=== PATIENT | male | born 1970 | race Caucasian/White ===

== ENCOUNTER 2023-09-07 11:36 | Emergency (ER) | payer MEDICAID, SELFPAY ==
[2023-09-07] VITALS (19 sets, daily range): BP systolic 164–221; BP diastolic 82–141; PULSE 70–87; RESP 13–23; TEMP 35.7–36.6; O2SAT 92–100
--- NOTE | 2023-09-07 11:47 | CT_ITS ---
STUDY: CT HEAD STROKE PROTOCOL W/O CONTRAST INJECTION REASON FOR EXAM: Male, 53 years old. Neuro deficit, acute, stroke suspected RADIATION DOSAGE (If Supplied By Facility): CTDIvol = ( 44.99 ) mGy, DLP = ( 829.85 ) mGycm TECHNIQUE: Transaxial CT imaging of the brain was performed without administration of intravenous contrast material. Individualized dose optimization techniques were used for this CT. COMPARISON: No relevant priors. FINDINGS: Focal soft tissue prominence in the scalp overlying the posterior right parietal bone. Normal calvarium. Normal size ventricles and extra-axial spaces for the patient''s age. Normal white matter tracts of the cerebral hemispheres. Normal basal ganglia and thalami. Normal brainstem. Normal cerebellum. There is no intracranial hemorrhage. There are no findings of an acute ischemic infarction. Normal visualized paranasal sinuses. ASPECT score: 10 CT/STROKE Brain/Head without Cont IMPRESSION: Normal unenhanced CT scan of the brain. Focal soft tissue prominence in the right scalp overlying the posterior right parietal bone. N.B. : The above Results were Read Back by Grant Owens MD to Don Milian MD, and understanding confirmed on 09/07/2023 12:05:33 (ET). Electronically Signed: Grant Owens MD at 12:06 EDT ,
--- NOTE | 2023-09-07 11:47 | CT_ITS ---
STUDY: CTA HEAD AND NECK WITH CONTRAST REASON FOR EXAM: Male, 53 years old. Neuro deficit, acute, stroke suspected -- Stuttering symptoms of numbness and loss of muscle RADIATION DOSAGE (If Supplied By Facility): CTDIvol = ( 35.95 ) mGy, DLP = ( 951.40 ) mGycm TECHNIQUE: CT angiography was performed with a multi-detector CT scanner. Data acquisition was obtained from the skull base through the vertex following intravenous administration of IV 100mL Isovue-370. MIP images were reconstructed from the axial data set. Post-processing of the angiographic images was performed, with multiplanar reformation and 3D reconstruction. Individualized dose optimization techniques were used for this CT. COMPARISON: No relevant priors. FINDINGS: Limited study due to the patient''s body habitus and poor peripheral venous access. Normal bilateral petrous carotid arteries. Normal right cavernous carotid artery with a normal supraclinoid bifurcation. Normal left cavernous carotid artery with a normal supraclinoid bifurcation. Normal right A1 segments of the anterior cerebral artery. Normal left A1 segments of the anterior cerebral artery. Normal intact anterior communicating artery (ACOM). Normal bilateral A2 segments of the anterior cerebral arteries. Normal right M1 and M2 segments of the middle cerebral arteries, with a normal M1 bifurcation. Normal left M1 and M2 segments of the middle cerebral arteries, with a normal M1 bifurcation. Normal right posterior communicating artery (PCOM). Normal left posterior communicating artery (PCOM). Normal bilateral vertebral arteries. Normal basilar artery with a normal basilar bifurcation. The visualized bilateral superior cerebellar (SCA) arteries are normal. Normal bilateral P1, P2 and visualized P3 segments of the posterior cerebral arteries. There is no demonstrated aneurysm of the mcgrath of [place]. AORTIC ARCH: Normal visualized aortic arch. Normal origins of the brachiocephalic, left common carotid, and left subclavian arteries. RIGHT CAROTID ARTERIES: Normal right common carotid artery (CCA). Normal right common carotid bulb. There is mild atherosclerotic plaque formation of the origin of the right internal carotid artery with less than 50% cross sectional diameter stenosis. Normal visualized cervical portion of the right internal carotid artery. Normal origin of the right external carotid artery (ECA). LEFT CAROTID ARTERIES: Normal left common carotid artery (CCA). Normal left common carotid bulb. There is mild atherosclerotic plaque formation of the origin of the left internal carotid artery with less than 50% cross sectional diameter stenosis. Normal visualized cervical portion of the left internal carotid artery. Normal origin of the left external carotid artery (ECA). VERTEBRAL ARTERIES: The vertebral arteries were not well visualized although there is a dominant right vertebral artery. CT/STROKE CTA Head AND Neck W/Con IMPRESSION: Minimal calcific plaque at the origin of the left and right internal carotid arteries. N.B. : The above Results were Read Back by Grant Owens MD to [facility] and understanding confirmed on 09/07/2023 12:22:43 (ET). Electronically Signed: Grant Owens MD at 12:23 EDT ,
--- NOTE | 2023-09-07 11:47 | EKG12_ITS ---
Test Reason : STROKE Blood Pressure : / mmHG Vent. Rate : 074 BPM Atrial Rate : 074 BPM P-R Int : 148 ms QRS Dur : 158 ms QT Int : 436 ms P-R-T Axes : 017 -55 038 degrees QTc Int : 483 ms Normal sinus rhythm Left axis deviation Non-specific intra-ventricular conduction block Minimal voltage criteria for LVH, may be normal variant ( Leroy product ) Abnormal ECG Confirmed by ARACELI CAO, EARL ([id number]), script editor WINDY THOMAS ([id number]) on 09/08/2023 9:27:50 AM Referred By: Confirmed By:EARL CHARLES MD
--- NOTE | 2023-09-07 11:51 | EDS_ITS ---
HPI History of Present Illness Chief Complaint: General Illness Detail of Chief Complaint: Patient's had intermittent episodes of left arm numbness and loss of functi Informant: patient and family Onset/Context/Timing Onset: Today, Yesterday and Days Context: Sudden Onset Timing: Intermittent (Duration 5 to 10 minutes) Quality and Location: Positive for Left Arm Parasthesia, Left Arm Weakness and - (Presently only symptom is numbness lips.); Negative for Right Facial Droop, Left Facial Droop, Right Face Paresthesia, Left Face Parasthesia, Slurred Speech, Expressive Aphasia, Receptive Aphasia or Difficulty with Ambulation Onset: 1106 today. Current Severity: Gone Maximum Severity: Moderate Worsened by: Nothing, patient has not been compliant with his blood pressure, cholestero Relieved by: Nothing Associated Symptoms Associated Symptoms: Negative for Headache, Nausea, Vomiting or Chest Pain Narrative Narrative: Patient is a 53-year-old male who has not seen a doctor in some time. He discontinued his medication for blood pressure, diabetes and high cholesterol. Patient had 2 episodes today where his left arm was numb and had loss of function. Patient presently has numbness of his lips. Patient denies headache, double vision blurred vision loss of vision. Patient [place] ringing ears decreased hearing. Patient denies problems with speech or swallowing. Patient denies cardiac or respiratory symptoms. Prior similar symptoms: No Recent Illness/Hospitalization: No [facility] Medical History Hypertension High cholesterol Diabetes Home Medications ?Medication ?Instructions ?Recorded ?Last Taken ?Type NK 09/07/23 Unknown History Allergy/AdvReac Type Severity Reaction Status Date / Time No Known Allergies Allergy Verified 09/07/23 11:39 Social History Smoking Status: Current every day smoker tobacco type: smokeless tobacco ROS ROS ED Constitutional Constitutional ED: Denies chills, fever(s) or subjective Eyes Eyes: Denies blurry vision or change in vision ENT ENT ED: Denies ear pain, rhinorrhea or sore throat Cardiovascular Cardiovascular: Denies chest pain, palpitations or racing heartbeat Respiratory/Chest Respiratory/Chest: Denies cough, dyspnea or dyspnea on exertion Gastrointestinal Gastrointestinal: Denies abdominal pain, nausea or vomiting Genitourinary Genitourinary ED: Denies dysuria, hematuria or urinary frequency Musculoskeletal Musculoskeletal: Denies arthralgias or myalgias Integumentary Denies rash Neurologic Neurologic: Denies headache(s), paresthesias or weakness Psychiatric Psychiatric: Denies anxiety Endocrine Endocrinology: Denies polydipsia, polyphagia or polyuria EXAM Physical Exam Const Vital Signs: 09/07/23 11:37 09/07/23 11:59 09/07/23 12:14 Temperature 96.3 F L Temperature Source Temporal Pulse Rate 75 Respiratory Rate 19 H Respiratory Effort Normal Non-Labored Respiratory Pattern Normal Blood Pressure 221/121 H Blood Pressure Mean 154 Pulse Ox 100 96 Oxygen Delivery Method Room Air Room Air 09/07/23 12:17 09/07/23 12:30 Temperature Temperature Source Pulse Rate 77 76 Respiratory Rate 19 H 13 Respiratory Effort Respiratory Pattern Blood Pressure 210/130 H 204/119 H Blood Pressure Mean 156 147 Pulse Ox 97 96 Oxygen Delivery Method Room Air Room Air Positive well nourished and well developed General Appearance ED: well developed and NAD HEENT Reports moist mucous membranes atraumatic Nose: other Other Details: There is a pustule left lower lip. Eyes PERRL and EOMs intact bilaterally Eyes Narrative: There is no nystagmus. There is no visual field cut. General Eye ED: Negative for pale conjunctiva or scleral icterus Neck no lymphadenopathy, supple and no JVD Chest Wall inspection of chest normal and palpation of chest normal Resp normal respiratory effort and clear to auscultation bilaterally Cardio no murmurs Rate: regular rate Rhythm: regular rhythm Heart Sounds: S1 normal GI normal to inspection, nondistended, normoactive bowel sounds, soft to palpation, non-tender, non-distended and no masses Back/Spine no CVA tenderness Extremity normal to inspection General Extremety ED: Yes edema General Extremity: edema Neuro oriented x3, CN's II-XII intact bilaterally and No no sensory deficits noted Neuro Narrative: Complains of numbness left leg. Apparently this is chronic. With patient having numbness in his lips Chvostek sign was assessed and negative. Jeremy Coma Scale: document GCS findings Spontaneous Obeys Commands Oriented 15 Sensorium / Orientation: alert Psych mental status grossly normal Skin no wounds Lesions: no lesions Rashes: no rashes NIHSS NIHSS Initial: 1a Level of Consciousness: 0 1b LOC Questions (Score 2 if aphasic/stupor): 0 1c LOC Commands (Only score 1st attempt): 0 2 Best Gaze (If aphasic, use reflexive mvmts.): 0 3 Visual: 0 4 Facial Palsy: 0 5 Motor Arm Right (UN = amputation/fusion): 0 5 Motor Arm Left: 0 6 Motor Leg Right: 0 6 Motor Leg Left: 0 7 Limb ataxia (Only + if out of proportion): 0 8 Sensory (Aphasia/stupor=0 or 1, coma=2): 1 9 Best Language: 0 10 Dysarthria (mute, coma=2, intubated=UN): 0 11 Extinction and Inattention (only scored if +): 0 Total Score: 1 MDM MDM MDM Narrative Medical decision making narrative: Concern patient is having stuttering TIA and may have a tight lesion. Stroke order set was initiated. Will obtain CT without contrast as well as CTA of the head and neck. Lab Data Attestation: I reviewed the patient's lab results. Lab results narrative: CBC is unremarkable. Labs: Laboratory Results - last 24 hr 09/07/23 12:00 WBC 7.1 RBC 5.91 Hgb 15.5 Hct 47.5 MCV 80.4 MCH 26.2 L MCHC 32.6 RDW Std Deviation 37.3 RDW Coeff of Masha 13.2 Plt Count 155 MPV 11.6 Immature Gran % (Auto) 0.400 Neut % (Auto) 62.9 Lymph % (Auto) 24.1 K[place]haw % (Auto) 7.2 Eos % (Auto) 4.6 Baso % (Auto) 0.8 Absolute Neuts (auto) 4.5 Absolute Lymphs (auto) 1.72 Nucleated RBC % 0 PT 12.5 INR 0.9 APTT 29.0 Radiography Chest X-Ray - ED: 1 View and Read by ED Physician (Borderline cardiomegaly. Limited story volume, atelectasis right lower lobe hilum is normal. Osseous structures are unremarkable. There is question of free air. I received a call from Dr. Mckinley that he is concerned patient may have free air as well. Will obtain CT of the abdomen determine if ) Diagnostic Testing: Clinical Impression(s) from Imaging Studies Brain CT 09/07/23 11:47 IMPRESSION: Normal unenhanced CT scan of the brain. Focal soft tissue prominence in the right scalp overlying the posterior right parietal bone. N.B. : The above Results were Read Back by Grant Owens MD to Don Milian MD, and understanding confirmed on 09/07/2023 12:05:33 (ET). Electronically Signed: Grant Owens MD at 12:06 EDT , ADDENDUM: 09/07/23 1213 IMPRESSION: Normal unenhanced CT scan of the brain. Focal soft tissue prominence in the right scalp overlying the posterior right parietal bone. N.B. : The above Results were Read Back by Grant Owens MD to Don Milian MD, and understanding confirmed on 09/07/2023 12:05:33 (ET). Electronically Signed: Grant Owens MD at 12:06 EDT , Head/Neck CTA 09/07/23 11:47 IMPRESSION: Minimal calcific plaque at the origin of the left and right internal carotid arteries. N.B. : The above Results were Read Back by Grant Owens MD to Don Milian and understanding confirmed on 09/07/2023 12:22:43 (ET). Electronically Signed: Grant Owens MD at 12:23 EDT , ADDENDUM: 09/07/23 1230 IMPRESSION: Minimal calcific plaque at the origin of the left and right internal carotid arteries. N.B. : The above Results were Read Back by Grant Owens MD to Don Milian and understanding confirmed on 09/07/2023 12:22:43 (ET). Electronically Signed: Grant Owens MD at 12:23 EDT , In light of soft tissue swelling of the occiput patient and family were asked if he had fallen. He fell approximately week ago striking the back of his head. This would explain his soft tissue swelling. EKG Initial EKG: Attestation: I personally reviewed and interpreted this EKG as follows: Interpretation: Sinus Rhythm (Rate is 74. There is artifact. Respiratory therapist attempted multiple times to get an EKG without artifact. [place] interval is 148 ms. Cures duration is prolonged at 958 ms and represents an ossific intraventricular conduction delay. QT is 3 to 436 ms. Atkinson is to left. There is evidence of LVH.) Management Discussion w/another healthcare provider: Hospitalist and Recessing Machine Operator (Neurologist recommended aspirin, for baby and stroke workup if symptoms recur to reconsult them) Treatment and Re-Evaluation Narrative: In light of the unremarkable CTA suspect his symptoms may be due to hyperte nsion. Will treat his hypertension with labetalol per the stroke order set. Patient and family were told there is concerned they may have free air on his x- ray. Will obtain CT to evaluate for free air. Patient presents complaining of no abdominal pain. Patient has a benign abdominal exam. Regardless there is concern for pneumoperitoneum and will obtain CT of the abdomen. Stroke Documentation Questions Stroke Team Activated: Yes Reviewed Inclusion/Exclusion criteria: Yes IV Thrombolytic Administered: No No contraindications from thrombolytic administration: No Discharge Plan Triage Chief Complaint: General Illness ED Provider: Chata Miliano Dx/Rx/DC Orders Clinical Impression: Hypertensive urgency, Arm paresthesia, left, Muscle weakness of left upper e xtremity, History of diabetes mellitus, Hx of hypercholesterolemia Prescriptions: No Action NK Primary Care Provider: NOT,DEFINED Referrals: NOT,DEFINED [Primary Care Provider] - Print Language: Lithuanian
--- NOTE | 2023-09-07 11:54 | ED.RN ---
NO OLD EKGS
[2023-09-07 12:24] LABS: Absolute Lymphocyte Count 1.72 X10^3/uL (0.83-4.51); Absolute Neutrophil Count 4.5 X10^3/uL (2.0-7.7); Basophil# 0.06 X10^3/uL; Basophil% 0.8 % (0-1); Eosinophil# 0.33 X10^3/uL; Eosinophils% 4.6 % (0-5); Hematocrit 47.5 % (40-54); Hemoglobin 15.5 g/dL (13.0-16.5); Lymphocyte # 1.72 X10^3/ul (0.83-4.51); Lymphocyte % 24.1 % (19-41); Mean Corp Hgb Conc 32.6 g/dL (32-36); Mean Corpuscular Hgb 26.2 pg (27.0-32.0); Mean Corpuscular Volume 80.4 fL (80-94); Mean Platelet Vol. 11.6 fl (6.2-12.0); Monocyte# 0.51 X10^3/uL; Monocyte% 7.2 % (0-10); NRBC Flagged by Analyzer 0 % (0-5); Neutrophil # 4.48 X10^3/uL (2.7-7.7); Neutrophil % 62.9 % (47-70); Platelet Count 155 K/mm3 (150-450); RBC Distribution Width CV 13.2 % (11.6-14.6); RBC Distribution Width SD 37.3 fl (35.1-43.9); Red Blood Count 5.91 M/mm3 (4.6-6.2); White Blood Count 7.1 K/mm3 (4.4-11.0)
--- NOTE | 2023-09-07 12:28 | RAD_ITS ---
STUDY: X-RAY CHEST REASON FOR EXAM: Male, 53 years old. Neuro deficit, acute, stroke suspected TECHNIQUE: Single AP portable view of the chest. COMPARISON: None. FINDINGS: EKG electrodes are seen. I suspect a small amount of free intraperitoneal air. The lungs are clear and expanded. There is no demonstrated pleural abnormality. There is mild cardiac enlargement. Normal mediastinum and shilpi. Normal visualized pulmonary arteries. Normal visualized aortic arch and descending thoracic aorta. There are diffuse degenerative changes of the visualized thoracic spine. Normal visualized ribs, clavicles, and shoulders. There is no demonstrated abnormality of the visualized soft tissue structures of the upper abdomen. RAD/Chest 1 View IMPRESSION: Questionable small amount of free intraperitoneal air. CT scan of the abdomen is recommended. N.B. : The above Results were Read Back by Grant Owens MD to Don Milian MD, and understanding confirmed on 09/07/2023 12:45:26 (ET). Electronically Signed: Grant Owens MD at 12:46 EDT ,
[2023-09-07 12:35] LABS: International Normalized Ratio 0.9; Prothrombin Time (Protime)PT. 12.5 SECONDS (11.7-14.9)
--- NOTE | 2023-09-07 12:45 | CT_ITS ---
STUDY: CT ABDOMEN AND PELVIS WITHOUT CONTRAST REASON FOR EXAM: Male, 53 years old. Concern for pneumoperitoneum RADIATION DOSAGE (If Supplied By Facility): CTDIvol = ( 24.04 ) mGy, DLP = ( 1411.35 ) mGycm TECHNIQUE: Transaxial images were obtained from the dome of the diaphragm to the symphysis pubis without oral contrast, and without intravenous contrast. Sagittal and coronal images were reconstructed. Individualized dose optimization techniques were used for this CT. COMPARISON: Comparison is made with prior study done earlier in the day. FINDINGS: Increased linear markings at the left lung base suggestive of underlying atelectasis. Coronary artery calcification. There is evidence of a small amount of free intraperitoneal air. Tiny air bubbles are seen within the falciform ligament. Normal liver. Small gallstones are seen along the dependent portion of the gallbladder lumen. Normal spleen. There is diffuse atrophy of the pancreas. Normal bilateral adrenal glands. Normal right kidney. Normal left kidney. Contrast is seen within both renal collecting systems due to the IV contrast administered. For CTA of the brain. There is heterogeneous appearance of the gastric wall. Questionable gastric ulcer. Normal small intestine. There are multiple colonic diverticula consistent with diverticulosis. The appendix is visualized and appears normal. Normal abdominal aorta. Normal inferior vena cava. Normal retroperitoneum. Normal urinary bladder. Normal abdominal wall. There are diffuse degenerative changes of the visualized lumbar spine. CT/Abdomen/Pelvis without Cont IMPRESSION: Abnormal appearance of the gastric wall. Questionable gastric ulcer. Sigmoid diverticulosis. Gallstones. Small amount of free intraperitoneal air. Findings suggestive of linear atelectasis at the left lung base. Electronically Signed: Grant Owens MD at 13:36 EDT ,
[2023-09-07] MEDS: Labetalol (Prefilled) 20 MG/4 ML IV ×2 (12:46→14:28)
[2023-09-07 13:02] LABS: Anion Gap 3 (5-15); BUN 9 mg/dL (7-18); BUN/Creat Ratio 12.5 RATIO (10-20); Calcium,Total 8.8 mg/dL (8.5-10.1); Chloride 105 mmol/L (98-107); Creatinine, Serum 0.72 mg/dL (0.70-1.30); EST Glomerular Filtration Rate 121 mL/min (>60); Est Glom Filt Rate - Afr Amer 146 mL/min (>60); Glucose 277 mg/dL (74-106); Sodium Level 138 mmol/L (136-145); Troponin-I HS 13 pg/mL (3.0-78.0)
--- NOTE | 2023-09-07 13:03 | PCM.HP.STD ---
HPI - General HPI Narrative MAXWELL SANDHU, is a 53 M who presents [facility] Medical History Hypertension High cholesterol Diabetes Home Medications ?Medication ?Instructions ?Recorded ?Last Taken ?Type NK 09/07/23 Unknown History Allergy/AdvReac Type Severity Reaction Status Date / Time No Known Allergies Allergy Verified 09/07/23 11:39 Social History Smoking Status: Current every day smoker tobacco type: smokeless tobacco Vital Signs Vital Signs Vital Signs: 09/07/23 11:37 09/07/23 11:59 09/07/23 12:14 Temperature 96.3 F L Temperature Source Temporal Pulse Rate 75 Respiratory Rate 19 H Respiratory Effort Normal Non-Labored Respiratory Pattern Normal Blood Pressure 221/121 H Blood Pressure Mean 154 Pulse Ox 100 96 Oxygen Delivery Method Room Air Room Air 09/07/23 12:17 09/07/23 12:30 Temperature Temperature Source Pulse Rate 77 76 Respiratory Rate 19 H 13 Respiratory Effort Respiratory Pattern Blood Pressure 210/130 H 204/119 H Blood Pressure Mean 156 147 Pulse Ox 97 96 Oxygen Delivery Method Room Air Room Air Results Lab / Micro Data 09/07/23 12:00 09/07/23 12:00 Labs: Laboratory Results - last 24 hr 09/07/23 12:00: WBC 7.1, RBC 5.91, Hgb 15.5, Hct 47.5, MCV 80.4, MCH 26.2 L, MCHC 32.6, RDW Std Deviation 37.3, RDW Coeff of Masha 13.2, Plt Count 155, MPV 11.6, Immature Gran % (Auto) 0.400, Neut % (Auto) 62.9, Lymph % (Auto) 24.1, [place] % (Auto) 7.2, Eos % (Auto) 4.6, Baso % (Auto) 0.8, Absolute Neuts (auto) 4.5, Absolute Lymphs (auto) 1.72, Nucleated RBC % 0, PT 12.5, INR 0.9, APTT 29.0, Sodium 138, Potassium 4.0, Chloride 105, Carbon Dioxide 30.0, Anion Gap 3 L, BUN 9, Creatinine 0.72, Est GFR (MDRD) Af Amer 146, Est GFR (MDRD) Non-Af 121, BUN/Creatinine Ratio 12.5, Glucose 277 H, Calcium 8.8, Troponin I High Sens 13 Imaging Radiology Impression Brain CT 09/07/23 11:47 IMPRESSION: Normal unenhanced CT scan of the brain. Focal soft tissue prominence in the right scalp overlying the posterior right parietal bone. N.B. : The above Results were Read Back by Grant Owens MD to Don Milian MD, and understanding confirmed on 09/07/2023 12:05:33 (ET). Electronically Signed: Grant Owens MD at 12:06 EDT , ADDENDUM: 09/07/23 1213 IMPRESSION: Normal unenhanced CT scan of the brain. Focal soft tissue prominence in the right scalp overlying the posterior right parietal bone. N.B. : The above Results were Read Back by Grant Owens MD to Don Milian MD, and understanding confirmed on 09/07/2023 12:05:33 (ET). Electronically Signed: Grant Owens MD at 12:06 EDT , Head/Neck CTA 09/07/23 11:47 IMPRESSION: Minimal calcific plaque at the origin of the left and right internal carotid arteries. N.B. : The above Results were Read Back by Grant Owens MD to Don Milian and understanding confirmed on 09/07/2023 12:22:43 (ET). Electronically Signed: Grant Owens MD at 12:23 EDT , ADDENDUM: 09/07/23 1230 IMPRESSION: Minimal calcific plaque at the origin of the left and right internal carotid arteries. N.B. : The above Results were Read Back by Grant Owens MD to Don Milian and understanding confirmed on 09/07/2023 12:22:43 (ET). Electronically Signed: Grant Owens MD at 12:23 EDT , Chest X-Ray 09/07/23 12:28 IMPRESSION: Questionable small amount of free intraperitoneal air. CT scan of the abdomen is recommended. N.B. : The above Results were Read Back by Grant Owens MD to Don Milian MD, and understanding confirmed on 09/07/2023 12:45:26 (ET). Electronically Signed: Grant Owens MD at 12:46 EDT , ADDENDUM: 09/07/23 1253
--- NOTE | 2023-09-07 13:25 | CHAPLAIN ---
Type of Pastoral Visit ___ Initial Visit ___ Follow-up Visit ___ On-call Visit ___ General Patient Visit ___ Spiritual Assessment ___ Family Conference ___ Bereavement _x__ Rapid Response ___ Code Blue ___ Other (describe below) Pastoral Care Referral From ___ Patient ___ Family ___ Nurse ___ Physician ___ Instructional Writer ___ Underground Electrician _x__ Other (describe below) Sacrament/Intervention ___ Active listening ___ Anointing ___ Yazidism ___ Bereavement ___ Communion ___ Miladis exploration ___ ___ Life review ___ Prayer ___ Reconciliation ___ Sacrament of Sick _x__ Supportive presence ___ Wedding ___ Other (describe below) Pastoral Comments met with family members in the room while patient was in CT; introduced self and role to family members; gave assurance that process to assist patient is quick and meaningful for his health and diagnosis; offer support and water; family members deny further needs
--- NOTE | 2023-09-07 13:44 | CT_ITS ---
STUDY: CT ABDOMEN WITH CONTRAST REASON FOR EXAM: Male, 53 years old. To evaluate source of pneumoperitoneum RADIATION DOSAGE (If Supplied By Facility): CTDIvol = ( 23.81 ) mGy, DLP = ( 1891.38 ) mGycm TECHNIQUE: Transaxial images were obtained post I.V. administration of Oral Gastrografin, and with oral contrast. Sagittal and coronal images were reconstructed. Individualized dose optimization techniques were used for this CT. COMPARISON: Comparison is made with prior study done earlier today. FINDINGS: Stable linear atelectasis at the left lung base. Coronary artery calcification. Once again, there is evidence of a free intraperitoneal air. This is unchanged. Normal liver. Multiple small gallstones. Normal spleen. Normal pancreas. Normal bilateral adrenal glands. Normal right kidney. Normal left kidney. There is mesenteric axial rotation of the stomach with the fundal portion of the stomach posteriorly in the body and distal portion of the stomach anteriorly. No gastric leak is seen. Normal small intestine. There are multiple colonic diverticula consistent with diverticulosis. The appendix is visualized and appears normal. 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 No gastric leakage is seen at this time. Electronically Signed: Grant Owens MD at 14:39 EDT ,
[2023-09-07] MEDS: Piperacil/Tazobactam 4.5 GM in 0.9% Normal Saline (100mL MB+) 100 ML IV (14:32)
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
--- NOTE | 2023-09-07 16:56 | ED.RN ---
CALLED [facility] TRANSFER--WAITING ORTHOPEDIC PODIATRIST BACK
--- NOTE | 2023-09-07 18:20 | EDS_ITS ---
HPI History of Present Illness Chief Complaint: General Illness Detail of Chief Complaint: This is a duplicate chart. [facility] Medical History Hypertension High cholesterol Diabetes Home Medications ?Medication ?Instructions ?Recorded ?Last Taken ?Type NK 09/07/23 Unknown History Allergy/AdvReac Type Severity Reaction Status Date / Time No Known Allergies Allergy Verified 09/07/23 11:39 Social History Smoking Status: Current every day smoker tobacco type: smokeless tobacco EXAM Physical Exam Const Vital Signs: 09/07/23 11:37 09/07/23 11:59 09/07/23 12:14 Temperature 96.3 F L Temperature Source Temporal Pulse Rate 75 Respiratory Rate 19 H Respiratory Effort Normal Non-Labored Respiratory Pattern Normal Blood Pressure 221/121 H Blood Pressure Mean 154 Pulse Ox 100 96 Oxygen Delivery Method Room Air Room Air 09/07/23 12:17 09/07/23 12:30 09/07/23 13:00 Temperature Temperature Source Pulse Rate 77 76 71 Respiratory Rate 19 H 13 21 H Respiratory Effort Respiratory Pattern Blood Pressure 210/130 H 204/119 H 196/98 H Blood Pressure Mean 156 147 130 Pulse Ox 97 96 94 Oxygen Delivery Method Room Air Room Air 09/07/23 13:19 09/07/23 13:30 09/07/23 14:31 Temperature 97.2 F L Temperature Source Oral Pulse Rate 75 70 73 Respiratory Rate 18 17 16 Respiratory Effort Respiratory Pattern Blood Pressure 193/141 H 198/100 H 187/110 H Blood Pressure Mean 158 132 135 Pulse Ox 97 98 96 Oxygen Delivery Method Room Air Room Air Room Air 09/07/23 14:59 09/07/23 15:18 09/07/23 16:06 Temperature Temperature Source Pulse Rate 70 71 71 Respiratory Rate 13 14 16 Respiratory Effort Respiratory Pattern Blood Pressure 201/85 H 168/110 H 164/89 H Blood Pressure Mean 123 129 114 Pulse Ox 94 95 95 Oxygen Delivery Method Room Air Room Air Room Air 09/07/23 18:00 Temperature Temperature Source Pulse Rate 71 Respiratory Rate 15 Respiratory Effort Respiratory Pattern Blood Pressure 201/113 H Blood Pressure Mean 142 Pulse Ox 94 Oxygen Delivery Method Room Air MDM MDM Lab Data Labs: Laboratory Results - last 24 hr 09/07/23 12:00 WBC 7.1 RBC 5.91 Hgb 15.5 Hct 47.5 MCV 80.4 MCH 26.2 L MCHC 32.6 RDW Std Deviation 37.3 RDW Coeff of Masha 13.2 Plt Count 155 MPV 11.6 Immature Gran % (Auto) 0.400 Neut % (Auto) 62.9 Lymph % (Auto) 24.1 [place] % (Auto) 7.2 Eos % (Auto) 4.6 Baso % (Auto) 0.8 Absolute Neuts (auto) 4.5 Absolute Lymphs (auto) 1.72 Nucleated RBC % 0 PT 12.5 INR 0.9 APTT 29.0 Sodium 138 Potassium 4.0 Chloride 105 Carbon Dioxide 30.0 Anion Gap 3 L BUN 9 Creatinine 0.72 Est GFR (MDRD) Af Amer 146 Est GFR (MDRD) Non-Af 121 BUN/Creatinine Ratio 12.5 Glucose 277 H Calcium 8.8 Troponin I High Sens 13 Radiography Diagnostic Testing: Clinical Impression(s) from Imaging Studies Brain CT 09/07/23 11:47 IMPRESSION: Normal unenhanced CT scan of the brain. Focal soft tissue prominence in the right scalp overlying the posterior right parietal bone. N.B. : The above Results were Read Back by Grant Owens MD to Don Milian MD, and understanding confirmed on 09/07/2023 12:05:33 (ET). Electronically Signed: Grant Owens MD at 12:06 EDT , ADDENDUM: 09/07/23 1213 IMPRESSION: Normal unenhanced CT scan of the brain. Focal soft tissue prominence in the right scalp overlying the posterior right parietal bone. N.B. : The above Results were Read Back by Grant Owens MD to Don Milian MD, and understanding confirmed on 09/07/2023 12:05:33 (ET). Electronically Signed: Grant Owens MD at 12:06 EDT , Head/Neck CTA 09/07/23 11:47 IMPRESSION: Minimal calcific plaque at the origin of the left and right internal carotid arteries. N.B. : The above Results were Read Back by Grant Owens MD to Don Milian and understanding confirmed on 09/07/2023 12:22:43 (ET). Electronically Signed: Grant Owens MD at 12:23 EDT , ADDENDUM: 09/07/23 1230 IMPRESSION: Minimal calcific plaque at the origin of the left and right internal carotid arteries. N.B. : The above Results were Read Back by Grant Owens MD to Don Milian and understanding confirmed on 09/07/2023 12:22:43 (ET). Electronically Signed: Grant Owens MD at 12:23 EDT , Chest X-Ray 09/07/23 12:28 IMPRESSION: Questionable small amount of free intraperitoneal air. CT scan of the abdomen is recommended. N.B. : The above Results were Read Back by Grant Owens MD to Don Milian MD, and understanding confirmed on 09/07/2023 12:45:26 (ET). Electronically Signed: Grant Owens MD at 12:46 EDT , ADDENDUM: 09/07/23 1253 IMPRESSION: Questionable small amount of free intraperitoneal air. CT scan of the abdomen is recommended. N.B. : The above Results were Read Back by Grant Owens MD to Don Milian MD, and understanding confirmed on 09/07/2023 12:45:26 (ET). Electronically Signed: Grant Owens MD at 12:46 EDT , Abdomen/Pelvis CT 09/07/23 12:45 IMPRESSION: Abnormal appearance of the gastric wall. Questionable gastric ulcer. Sigmoid diverticulosis. Gallstones. Small amount of free intraperitoneal air. Findings suggestive of linear atelectasis at the left lung base. Electronically Signed: Grant Owens MD at 13:36 EDT , Abdomen CT 09/07/23 13:44 IMPRESSION: Mesenteric axial rotation of the stomach as described. No gastric leakage is seen at this time. Electronically Signed: Grant Owens MD at 14:39 EDT , Discharge Plan Triage Chief Complaint: General Illness ED Provider: Don Milian Dx/Rx/DC Orders Clinical Impression: Hypertensive urgency, Arm paresthesia, left, Muscle weakness of left upper extremity, History of diabetes mellitus, Hx of hypercholesterolemia, Pneumoperitoneum of unknown etiology Prescriptions: No Action NK Primary Care Provider: Curtis Park Referrals: Curtis Park MD [Primary Care Provider] - NOT,DEFINED [Non-Staff] - Print Language: Cuban Disposition Disposition: Acute Care Hospital Discharge Location: [facility] Main [place] Discharge Date/Time: 09/07/23 21:50
[2023-09-07] MEDS: Nicardipine HCl-0.9% Sod Chlor 20 MG/200 ML IV.SOLN 50 MG IV (18:37)
== END 2023-09-07 21:50 | disposition short-term general hospital (02) ==
PROVIDERS: Emergency Provider Emergency Medicine; Visit Provider Emergency Medicine
DX: K66.8 Other specified disorders of peritoneum (principal); E11.9 Type 2 diabetes mellitus without complications; I16.0 Hypertensive urgency; E78.00 Pure hypercholesterolemia, unspecified; R53.1 Weakness; I10 Essential (primary) hypertension; R29.898 Other symptoms and signs involving the musculoskeletal system; F17.220 Nicotine dependence, chewing tobacco, uncomplicated; R20.2 Paresthesia of skin; K57.30 Diverticulosis of large intestine without perforation or abscess without bleeding
CPT/HCPCS: 70450; 70496; 70498; 71045; 74150; 74176; 80048; 84484; 85025; 85610; 85730; 93005; 96365; 96366; 96367; 96375; 96376; 99285; J7050; Q9967; A4216

== ENCOUNTER 2023-11-01 09:36 | Emergency (ER) | payer MEDICAID, SELFPAY ==
[2023-11-01 09:38] VITALS: BP 162/78; PULSE 75; RESP 18; TEMP 35.9; O2SAT 97
[2023-11-01 09:51] VITALS: BP 162/78; PULSE 75; RESP 18; TEMP 35.9; O2SAT 97; BMI 50.3
--- NOTE | 2023-11-01 10:22 | RAD_ITS ---
STUDY: X-RAY - RIGHT FOOT CLINICAL: Male, 53 years old. Wound on dorsal aspect TECHNIQUE: 3 view(s) of the foot. COMPARISON: None. FINDINGS: There is a plantar calcaneal spur. Normal visualized subtalar, talonavicular, calcaneocuboid, tarsal and tarsometatarsal articulations. There is a talar neck beak. This is a normal variant. Normal metatarsi. There is degenerative arthrosis of the metatarsophalangeal joint of the hallux . Normal tibial and fibular sesamoid bones. Normal interphalangeal joint of the great toe. Normal phalanges of the great toe. Normal second through fifth metatarsophalangeal joints. Normal interphalangeal joints and phalanges of the lesser toes. Dorsal soft tissue swelling. RAD/Foot min 3 Views IMPRESSION: Degenerative changes at the first metatarsophalangeal joint. Plantar spur. Dorsal soft tissue swelling. Electronically Signed: Grant Owens MD at 10:46 EDT ,
[2023-11-01 10:26] LABS: Absolute Neutrophil Count 5.6 X10^3/uL (2.0-7.7); Basophil# 0.06 X10^3/uL; Basophil% 0.7 % (0-1); Eosinophil# 0.28 X10^3/uL; Eosinophils% 3.4 % (0-5); Hematocrit 44.5 % (40-54); Hemoglobin 14.5 g/dL (13.0-16.5); Lymphocyte % 19.7 % (19-41); Mean Corp Hgb Conc 32.6 g/dL (32-36); Mean Corpuscular Hgb 26.5 pg (27.0-32.0); Mean Corpuscular Volume 81.4 fL (80-94); Mean Platelet Vol. 10.8 fl (6.2-12.0); Monocyte# 0.63 X10^3/uL; Monocyte% 7.7 % (0-10); NRBC Flagged by Analyzer 0 % (0-5); Neutrophil # 5.56 X10^3/uL (2.7-7.7); Neutrophil % 68.4 % (47-70); Platelet Count 143 K/mm3 (150-450); RBC Distribution Width CV 13.5 % (11.6-14.6); RBC Distribution Width SD 39.8 fl (35.1-43.9); Red Blood Count 5.47 M/mm3 (4.6-6.2); White Blood Count 8.1 K/mm3 (4.4-11.0)
[2023-11-01] MEDS: 0.9% Normal Saline (1000mL) 1,000 ML 999 ML IV (10:26)
[2023-11-01 10:38] LABS: Anion Gap 5 (5-15); BUN 11 mg/dL (7-18); BUN/Creat Ratio 16.8 RATIO (10-20); Calcium,Total 9.1 mg/dL (8.5-10.1); Chloride 105 mmol/L (98-107); Creatinine, Serum 0.66 mg/dL (0.70-1.30); EST Glomerular Filtration Rate 135 mL/min (>60); Est Glom Filt Rate - Afr Amer 163 mL/min (>60); Estimated Creatinine Clearance 191.03 ml/min; Glucose 299 mg/dL (74-106); Potassium 3.9 mmol/L (3.5-5.1); Sodium Level 139 mmol/L (136-145)
--- NOTE | 2023-11-01 10:39 | EX.ED.DYSGE1 ---
HPI History of Present Illness Chief Complaint: Wound Check Narrative Narrative: Patient is a 53-year-old male past medical history of diabetes, hypercholesteremia, hypertension, tobacco use who presents to the emergency department with a wound check on his right foot. He states that he dropped a hot potato on his right foot and he states that he has been on antibiotics since Monday states that has been taking doxycycline. He states that he does believe that the area is improving however he noted that he try to get into his primary care physician today for a wound evaluation and states they could not get him in till the end of the week which she came here then for further evaluation management. Patient states that he was originally placing peroxide on the wound however he discontinued this after he was told to stop this by the provider that saw him placed him on doxycycline. Patient denies any fevers [facility] Medical History Hypertension High cholesterol Diabetes Home Medications ?Medication ?Instructions ?Recorded ?Last Taken ?Type doxycycline hyclate 100 mg capsule 100 mg PO BID 11/01/23 Unknown History insulin glargine 100 unit/mL (3 unit subcut 11/01/23 Unknown History mL) subcutaneous pen (Lantus Solostar U-100 Insulin) levetiracetam 500 mg tablet 500 mg PO BID 11/01/23 Unknown History losartan 50 mg tablet 50 mg PO DAILY 11/01/23 Unknown History Allergy/AdvReac Type Severity Reaction Status Date / Time No Known Allergies Allergy Verified 11/01/23 09:38 Social History Smoking Status: Current every day smoker tobacco type: smokeless tobacco ROS ROS ED ROS Narrative Constitutional: Denies fevers, chills, headaches Cardiovascular: Denies chest pain Neurological: Denies numbness, does come tingling Musculoskeletal: Complains of right foot wound as noted above Skin: See above EXAM Physical Exam Narrative Exam Narrative: General: Patient lying in bed rest comfortably did not appear to be in acute distress Head: Atraumatic, normocephalic Eyes: PERRL bilateral, EOMI bilateral, no conjunctival injection noted Neck: Soft, supple, trach midline Cardiovascular: Regular rate and rhythm no murmurs gallops rubs noted Respiratory: Clear to auscultation bilaterally no rales rhonchi or wheezes noted Abdomen: Soft, nondistended, no tenderness palpation Extremities: DP pulses +2/4 in the bilateral lower extremities, +5/5 strength noted in the bilateral upper and lower extremities Neurological: Patient following commands knew that he was at [facility] years 2023. Sensation grossly intact in the bilateral lower extremities Skin: Patient has a 3 x 3 cm wound to the dorsal aspect of his right foot with some surrounding erythema noted no fluctuance noted. Did review images that the patient took and this does appear to be improving with antibiotics. Const Vital Signs: 11/01/23 09:38 11/01/23 09:51 Temperature 96.7 F L 96.7 F L Temperature Source Temporal Temporal Pulse Rate 75 75 Respiratory Rate 18 18 Blood Pressure 162/78 H 162/78 H Blood Pressure Mean 106 106 Pulse Ox 97 97 Oxygen Delivery Method Room Air Room Air MDM MDM MDM Narrative Medical decision making narrative: Patient is a 53-year-old male who presented to the emergency department with a wound evaluation. Patient will have workup performed here on the differential diagnose includes but not limited to cellulitis, osteomyelitis. Once workup is obtained reviewed he will be reevaluated. Patient be given IV fluids. Once again I reviewed the images that he had on his phone and this clinically is improving on his oral antibiotics. Patient CBC reviewed was largely unremarkable no evidence leukocytosis white blood count normal at 8.1, hemoglobin stable 14.5, platelet count was 143, sodium normal at 139, potassium normal at 3.9, creatinine was 0.66. Patient's lactic acid normal at 1.6. Patient's x-ray of his foot reviewed and showed degenerative changes at the first metatarsal joint plantar spur with dorsal soft tissue swelling. Patient was given a gram of Rocephin here in the emergency department. Patient will have his wound outlined in marker and was advised to continue his oral antibiotics that he is on and return with worsening redness outside this line. He states that he has a appointment scheduled with his primary care physician which she was advised to follow-up with them on as well. Patient would like to go home at this point time all question concerns answered he was discharged home in stable condition. Lab Data Labs: Laboratory Results - last 24 hr 11/01/23 10:20 WBC 8.1 RBC 5.47 Hgb 14.5 Hct 44.5 MCV 81.4 MCH 26.5 L MCHC 32.6 RDW Std Deviation 39.8 RDW Coeff of Masha 13.5 Plt Count 143 L MPV 10.8 Immature Gran % (Auto) 0.100 Neut % (Auto) 68.4 Lymph % (Auto) 19.7 [place] % (Auto) 7.7 Eos % (Auto) 3.4 Baso % (Auto) 0.7 Absolute Neuts (auto) 5.6 Absolute Lymphs (auto) 1.60 Nucleated RBC % 0 Sodium 139 Potassium 3.9 Chloride 105 Carbon Dioxide 29.0 Anion Gap 5 BUN 11 Creatinine 0.66 L Estim Creat Clear Calc 191.03 Est GFR (MDRD) Af Amer 163 Est GFR (MDRD) Non-Af 135 BUN/Creatinine Ratio 16.8 Glucose 299 H Lactic Acid 1.6 Calcium 9.1 Radiography Diagnostic Testing: Clinical Impression(s) from Imaging Studies Foot X-Ray 11/01/23 10:22 IMPRESSION: Degenerative changes at the first metatarsophalangeal joint. Plantar spur. Dorsal soft tissue swelling. Electronically Signed: Grant Owens MD at 10:46 EDT , Discharge Plan Triage Chief Complaint: Wound Check ED Provider: Mauri Huggins Dx/Rx/DC Orders Clinical Impression: Cellulitis of foot Prescriptions: No Action losartan 50 mg tablet 50 mg PO DAILY doxycycline hyclate 100 mg capsule 100 mg PO BID levetiracetam 500 mg tablet 500 mg PO BID insulin glargine [Lantus Solostar U-100 Insulin] 100 unit/mL (3 mL) insulin pen subcut Primary Care Provider: Curtis Park Referrals: Curtis Park MD [Primary Care Provider] - Activity Restrictions/Additional Instructions: Take antibiotics as prescribed. Return for worsening redness/purulent drainage out of the wound and outside the line marked as discussed here. Follow-up your primary care physician. Return with any other concerns. Print Language: Mauritian Disposition Disposition: Home, Self Care
[2023-11-01 10:52] LABS: Lactic Acid 1.6 mmol/L (0.4-1.9)
[2023-11-01] MEDS: Ceftriaxone 1 GM/50 ML BAG IV (11:03)
[2023-11-01 11:59] VITALS: BP 142/72; PULSE 76; RESP 18; TEMP 36.9; O2SAT 94
== END 2023-11-01 12:00 | disposition home or self-care (01) ==
PROVIDERS: Emergency Provider Emergency Medicine; Visit Provider Emergency Medicine
DX: L03.115 Cellulitis of right lower limb (principal); E11.9 Type 2 diabetes mellitus without complications; Z79.4 Long term (current) use of insulin; M19.071 Primary osteoarthritis, right ankle and foot; I10 Essential (primary) hypertension; E78.00 Pure hypercholesterolemia, unspecified; F17.220 Nicotine dependence, chewing tobacco, uncomplicated; Z79.899 Other long term (current) drug therapy
CPT/HCPCS: 73630; 80048; 83605; 85025; 96361; 96365; 99283; J7030; A4216

== ENCOUNTER 2024-06-02 23:07 | Inpatient (IN) | payer MEDICAID, SELFPAY ==
[2024-06-02 23:08] VITALS: BP 136/92; PULSE 135; RESP 20; TEMP 36.1; O2SAT 98
[2024-06-02 23:10] VITALS: BP 170/101; PULSE 135; RESP 18; TEMP 36.6; O2SAT 98
--- NOTE | 2024-06-02 23:30 | EKG12_ITS ---
Test Reason : Blood Pressure : */* mmHG Vent. Rate : 135 BPM Atrial Rate : 136 BPM P-R Int : 128 ms QRS Dur : 98 ms QT Int : 360 ms P-R-T Axes : * -64 -3 degrees QTcB Int : 540 ms Sinus tachycardia Pulmonary disease pattern Left anterior fascicular block Minimal voltage criteria for LVH, may be normal variant ( [place] product ) ST & T wave abnormality, consider inferior ischemia Abnormal ECG Confirmed by PAIGE CAO, HAMMAD ([id number]), video editor WINDY THOMAS ([id number]) on 06/05/2024 11:57:12 AM Referred By: Confirmed By: HAMMAD GIBSON MD
--- NOTE | 2024-06-02 23:31 | EX.ED.DYSGE1 ---
HPI History of Present Illness Chief Complaint: Palpitations Narrative Narrative: 54-year-old male past medical history of diabetes, previous stroke on baby aspirin, seizure disorder on Keppra, hypertension, presents with tachycardia that has had for the last 3 to 4 days. He relates history that about 4 to 5 days ago he was having ear pain. He went to urgent care and was put on antibiotics and prednisone. A few days later, he took his blood pressure and he noticed that at that time he had a heart rate in the 130s. He is asymptomatic with this and does not have chest pain or shortness of breath, he does not feel palpitations. The other day, he took his blood pressure and it was low, and his heart rate came down to 108 bpm, but he states he took an hour later and it has remained in the 130s for the last few days. He denies any exacerbating or alleviating factors. No shortness of breath. No leg swelling. [facility] Medical History Hypertension High cholesterol Diabetes Home Medications ?Medication ?Instructions ?Recorded ?Last Taken ?Type doxycycline hyclate 100 mg capsule 100 mg PO BID 11/01/23 Unknown History insulin glargine 100 unit/mL (3 unit subcut 11/01/23 Unknown History mL) subcutaneous pen (Lantus Solostar U-100 Insulin) levetiracetam 500 mg tablet 500 mg PO BID 11/01/23 Unknown History losartan 50 mg tablet 50 mg PO DAILY 11/01/23 Unknown History amoxicillin 875 mg tablet 875 mg PO BID 06/03/24 Unknown History aspirin 81 mg chewable tablet 1 tab PO DAILY 06/03/24 Unknown History atorvastatin 40 mg tablet 40 mg PO DAILY 06/03/24 Unknown History insulin lispro 100 unit/mL 10 unit subcut TID 06/03/24 Unknown History subcutaneous pen nifedipine 30 mg tablet,extended 30 mg PO DAILY 06/03/24 Unknown History release Allergy/AdvReac Type Severity Reaction Status Date / Time No Known Allergies Allergy Verified 06/02/24 23:07 Social History household members: spouse and family housing: house Smoking Status: Current every day smoker tobacco type: cigarettes ROS ROS ED ROS Narrative Constitutional: No fever, no chills. HEENT: No sore throat. No neck pain. No rhinorrhea. Positive for ear pain for which she went to urgent care and received prednisone and an antibiotic. Cardiovascular: No chest pain. No palpitations. No pedal edema. Respiratory: No cough, no shortness of breath. Abdominal: No abdominal pain. No nausea. No vomiting. Genitourinary: No dysuria. No hematuria. Musculoskeletal: No myalgias. No arthralgias. Neurologic: No headaches. No dizziness. No lightheadedness. EXAM Physical Exam Narrative Exam Narrative: Afebrile. Vital signs noted. Nontoxic-appearing. Cardiovascular examination reveals a regular tachycardia at 135 bpm. Lungs are clear to auscultation bilaterally. Abdomen soft, nontender, without guarding or rebound. Positive bowel sounds. Neurological examination nonfocal, nonlateralizing. No noted pedal edema. Const Vital Signs: 06/02/24 23:08 06/02/24 23:10 06/03/24 00:07 Temperature 97 F L 98 F Temperature Source Temporal Oral Pulse Rate 135 H 135 H 130 H Respiratory Rate 20 H 18 25 H Blood Pressure 136/92 H 170/101 H 140/112 H Blood Pressure Mean 106 124 121 Pulse Ox 98 98 96 Oxygen Delivery Method Room Air Room Air Room Air 06/03/24 01:00 Temperature Temperature Source Pulse Rate 115 H Respiratory Rate 25 H Blood Pressure 116/103 H Blood Pressure Mean 107 Pulse Ox 96 Oxygen Delivery Method Room Air MDM MDM MDM Narrative Medical decision making narrative: Differential diagnosis includes but not limited to sinus tachycardia versus atrial fibrillation versus dehydration versus other electrolyte abnormality. I have lower suspicion for pulmonary embolism as he is not having chest pain or shortness of breath although he was mildly tachypneic originally in triage. Pulse ox is 98% on room air without evidence of hypoxia. Comprehensive workup was pursued. EKG obtained and interpreted by myself independently as a sinus tachycardia at [address] changes. No STEMI. I reviewed his laboratory work and he has normal white count of 10.0, hemoglobin slightly hemoconcentrated at 16.6 with hematocrit 51.2, platelet count 212. Electrolyte panel shows chloride slightly low at 97 which I think is nonspecific, glucose elevated 318 but he has a normal anion gap of 12 so I doubt diabetic ketoacidosis. BUN of 22. LFTs are grossly unremarkable. High-sensitivity troponin initially is elevated at 56. Patient is symptom-free and is not having chest pain however. I received a call from the radiologist regarding the CTA of the chest, with concern for pulmonary embolism. In discussion with the radiologist, it appears he has bilateral pulmonary emboli, 1 in the right upper lobe and 1 in the left lower lobe there can be a developing left lower lobe infarct according to the radiologist as well. At this point in time, he will be started on heparin. I do feel that he requires admission given his elevated troponin, and pulmonary infarct that is probably developing. Patient discussed with the hospitalist for admission. Disposition is admitted to the PCU in stable condition. History & Record Review Discussion w/independent historian: Patient and Family Lab Data Attestation: I reviewed the patient's lab results. Labs: Laboratory Results - last 24 hr 06/02/24 23:30 WBC 10.0 RBC 6.30 H Hgb 16.6 H Hct 51.2 MCV 81.3 MCH 26.3 L MCHC 32.4 RDW Std Deviation 39.6 RDW Coeff of Masha 13.6 Plt Count 212 MPV 11.9 Immature Gran % (Auto) 1.300 H Neut % (Auto) 65.1 Lymph % (Auto) 24.7 [place] % (Auto) 7.5 Eos % (Auto) 0.7 Baso % (Auto) 0.7 Absolute Neuts (auto) 6.5 Absolute Lymphs (auto) 2.46 Nucleated RBC % 0 Sodium 133 Potassium 4.5 Chloride 97 L Carbon Dioxide 24.1 Anion Gap 12 BUN 22 H Creatinine 0.82 Est GFR (MDRD) Non-Af 105 BUN/Creatinine Ratio 26.7 H Glucose 318 H Calcium 8.9 Total Bilirubin 0.59 AST 22 ALT 21 Alkaline Phosphatase 78 Troponin T High Sens 56 H* Total Protein 7.0 Albumin 3.4 L Globulin 3.6 Albumin/Globulin Ratio 1.0 Radiography Diagnostic Testing: Clinical Impression(s) from Imaging Studies Chest CTA 06/03/24 23:29 IMPRESSION: Findings are concerning for areas of pulmonary embolism at the right upper and left lower lobes as described above. Possible associated developing infarct at the left lower lobe as above. Findings discussed by myself by phone with Dr. Schneider at 1:07 a.m. 06/03/2024 Reading Location: [facility] Management Discussion w/another healthcare provider: Hospitalist (Dr. Bill) Discharge Plan Dx/Rx/DC Orders Clinical Impression: Bilateral pulmonary embolism, Pulmonary embolism with infarction, Elevated troponin, Tachycardia Disposition Disposition: Acute Care Hospital [facility]
[2024-06-02] MEDS: 0.9% Normal Saline (1000mL) 1,000 ML 1000 ML IV (23:40)
[2024-06-03] VITALS (16 sets, daily range): BP systolic 110–168; BP diastolic 73–131; PULSE 86–146; RESP 12–25; TEMP 36.6–37; O2SAT 94–98; BMI 52.9; BMI 52.0; BMI 51.8
[2024-06-03 00:10] LABS: Absolute Lymphocyte Count 2.46 X10^3/uL (0.83-4.51); Absolute Neutrophil Count 6.5 X10^3/uL (2.0-7.7); Basophil# 0.07 X10^3/uL; Basophil% 0.7 % (0-1); Eosinophil# 0.07 X10^3/uL; Eosinophils% 0.7 % (0-5); Hematocrit 51.2 % (40-54); Hemoglobin 16.6 g/dL (13.0-16.5); Lymphocyte # 2.46 X10^3/ul (0.83-4.51); Lymphocyte % 24.7 % (19-41); Mean Corp Hgb Conc 32.4 g/dL (32-36); Mean Corpuscular Hgb 26.3 pg (27.0-32.0); Mean Corpuscular Volume 81.3 fL (80-94); Mean Platelet Vol. 11.9 fl (6.2-12.0); Monocyte# 0.75 X10^3/uL; Monocyte% 7.5 % (0-10); NRBC Flagged by Analyzer 0 % (0-5); Neutrophil # 6.48 X10^3/uL (2.7-7.7); Neutrophil % 65.1 % (47-70); Platelet Count 212 K/mm3 (150-450); RBC Distribution Width CV 13.6 % (11.6-14.6); RBC Distribution Width SD 39.6 fl (35.1-43.9)
[2024-06-03 00:20] LABS: AST(SGOT) 22 U/L (<=37); Alanine Aminotransfer ALT/SGPT 21 U/L (<=46); Albumin, Serum 3.4 g/dL (3.5-5.0); Alkaline Phosphatase 78 U/L (40-129); Anion Gap 12 (5-15); BUN 22 mg/dL (4-19); BUN/Creat Ratio 26.7 RATIO (10-20); Calcium,Total 8.9 mg/dL (7.6-11.0); Carbon Dioxide 24.1 mmol/L (21.0-32.0); Chloride 97 mmol/L (98-108); Creatinine, Serum 0.82 mg/dL (0.70-1.20); EST Glomerular Filtration Rate 105 (>60); Globulin 3.6 g/dL (2.2-4.2); Glucose 318 mg/dL (70-99); Potassium 4.5 mmol/L (3.3-5.1); Sodium Level 133 mmol/L (133-145); Total Bilirubin 0.59 mg/dL (0.00-1.30)
[2024-06-03 00:24] LABS: Troponin T High Sensitivity 56 ng/L (<=22)
--- NOTE | 2024-06-03 01:34 | PCM.HP.STD ---
[facility] - General General Date of Admission: 06/03/24 Date of Service: 06/03/24 Chief Complaint: Persistent Tachycardia. [facility] Narrative MAXWELL SANDHU, is a 54 M with a past medical history of essential hypertension; on losartan and nifedipine, hyperlipidemia; on atorvastatin, super-morbid obesity; with BMI of 53 this admission, BROOKE; noncompliant with CPAP for the past ~2 years, DM-2; of unknown control; on insulin glargine and insulin lispro TID, history of CVA; on BASA daily, history of seizures; on levetiracetam, OA, unintentional 50 pound weight gain over the past ~6 months and recent diagnosis of ear infection at Urgent Care; treated with oral amoxicillin and prednisone who presents to [facility] ER complaining of persistent tachycardia. Mr. Sadnhu reports his symptoms began ~4-5 days ago when he began having ear pain for which he went to Urgent Care. Then about ~3-4 days ago he took his blood pressure and noted his heart rate was in the ~130 bpm range which has only episodically decreased to ~108 bpm but is was basically remaining high in the ~130 bpm range so he decided to come in for further evaluation and treatment. He denies associated palpitations, chest pain or SOB. He states his mobility is relatively poor as he mainly goes from the bed to wheelchair and does not exercise or have regular activity. He denies personal or family history of VTE. He also denies related fever, chills, nausea, vomiting, diarrhea, constipation, abdominal pain, headache or rash. In the ER he was noted to have a CTA of the chest with IV contrast that revealed findings concerning for areas of Pulmonary Embolism at the RUL and KARINA with possible associated developing infarct at the LLL along with Erythrocytosis indicated by elevated hemoglobin of 16.6 g/dL present on admission complicated by persistent Tachycardia in the ~130 bpm range and mildly elevated troponin T of 56 ng/L present on admission suspected to be due to Acute Cardiac Strain compounded by additional laboratory evidence of Hyperglycemia of 318 mg/dL present on admission likely due to recent steroid administration in the setting of known chronic DM-2 along with elevated BUN/creatinine ratio of 26.7 present on admission suggesting Dehydration and he was then admitted to the PCU for ongoing care for stay that is expected to extend beyond 2 midnights. [facility] Medical History Sleep apnea Seizures Stroke/cerebrovascular accident Hypertension High cholesterol Diabetes Home Medications ?Medication ?Instructions ?Recorded ?Last Taken ?Type insulin glargine 100 unit/mL (3 100 unit subcut DAILY diabetes 11/01/23 05/20/24 History mL) subcutaneous pen (Lantus Solostar U-100 Insulin) levetiracetam 500 mg tablet 500 mg PO BID keppra 11/01/23 05/27/24 History losartan 50 mg tablet 50 mg PO DAILY BP 11/01/23 05/27/24 History amoxicillin 875 mg tablet 875 mg PO BID ear infection 06/03/24 06/01/24 History aspirin 81 mg chewable tablet 1 tab PO DAILY heart health 06/03/24 Unknown History atorvastatin 40 mg tablet 40 mg PO QHS choleterol 06/03/24 05/27/24 History insulin lispro 100 unit/mL See Rx Instructions subcut TID 06/03/24 05/20/24 History subcutaneous pen diabetes nifedipine 30 mg tablet,extended 30 mg PO DAILY BP 06/03/24 06/01/24 History release Allergy/AdvReac Type Severity Reaction Status Date / Time No Known Allergies Allergy Verified 06/02/24 23:07 Surgical History Hx of neck surgery Social History household members: spouse and family housing: house Smoking Status: Never smoker ROS ROS Narrative Review of Systems: Constitutional: Patient denies fever or chills. Eyes: Patient denies change in vision or discharge from eyes. ENT: Patient admits to ear pain with recent trip to urgent care on prednisone and amoxicillin as per HPI. He denies associated sore throat, runny nose or neck pain. Resp: Patient denies shortness of breath or cough. CV: Patient denies chest pain, palpitations, heart racing or lower extremity edema. GI: Patient denies abdominal pain, nausea, vomiting, diarrhea or constipation. : Patient denies dysuria, hematuria or urinary frequency. MSK: Patient denies arthralgias or myalgias. Skin: Patient denies rash, abscess, wounds or jaundice. Psych: Patient denies symptoms of uncontrolled depression or anxiety. Neuro: Patient denies headache, paresthesias or focal neurologic deficits. Allergy: Patient denies lip swelling, tongue swelling or urticaria. Hematology: Patient denies easy bleeding or easy bruisability. Endocrinology: Patient admits to polyuria and polydipsia but he denies polyphagia or heat/cold intolerance. 14 point ROS otherwise negative save for positives noted above in HPI. Vital Signs Vital Signs Vital Signs: 06/02/24 23:08 06/02/24 23:10 06/03/24 00:07 Temperature 97 F L 98 F Temperature Source Temporal Oral Pulse Rate 135 H 135 H 130 H Respiratory Rate 20 H 18 25 H Blood Pressure 136/92 H 170/101 H 140/112 H Blood Pressure Mean 106 124 121 Pulse Ox 98 98 96 Oxygen Delivery Method Room Air Room Air Room Air 06/03/24 01:00 Temperature Temperature Source Pulse Rate 115 H Respiratory Rate 25 H Blood Pressure 116/103 H Blood Pressure Mean 107 Pulse Ox 96 Oxygen Delivery Method Room Air Weight Weight: 358 lb 11.073 oz Body Mass Index (BMI) 52.9 Physical Exam Const alert, oriented x3 and no apparent distress Constitutional Narrative: Patient is morbidly obese but nontoxic in appearance. General Appearance: cooperative HEENT normocephalic, head/scalp atraumatic, hearing grossly normal bilaterally and moist oral mucous membranes Eyes PERRL, EOMs intact bilaterally and conjunctivae normal Neck no lymphadenopathy, supple and no JVD Resp normal respiratory effort, no retractions, no use of accessory muscles and clear to auscultation bilaterally Cardio Cardio Narrative: Regular tachycardia noted at ~130 bpm. GI normal to inspection, nondistended, normoactive bowel sounds, soft to palpation, non-tender and non-distended GI Narrative: Morbidly obese. Extremity normal to inspection, full ROM and no clubbing, cyanosis or edema Skin Skin Narrative: Patient denies rash, abscess, wounds or jaundice. Neuro oriented x3, CN's II-XII intact bilaterally, moves all extremities and no focal motor deficits Sensorium / Orientation: awake, alert, oriented to person, oriented to place and oriented to time Speech: speech normal Psych affect normal Results Medical Records Data Attestation: I reviewed the patient's medical records Lab / Micro Data Attestation: I reviewed the patient's lab results. 06/03/24 03:31 06/02/24 23:30 Labs: Laboratory Results - last 24 hr 06/02/24 23:30: WBC 10.0, RBC 6.30 H, Hgb 16.6 H, Hct 51.2, MCV 81.3, MCH 26.3 L, MCHC 32.4, RDW Std Deviation 39.6, RDW Coeff of Masha 13.6, Plt Count 212, MPV 11.9, Immature Gran % (Auto) 1.300 H, Neut % (Auto) 65.1, Lymph % (Auto) 24.7, [place] % (Auto) 7.5, Eos % (Auto) 0.7, Baso % (Auto) 0.7, Absolute Neuts (auto) 6.5, Absolute Lymphs (auto) 2.46, Nucleated RBC % 0, Sodium 133, Potassium 4.5, Chloride 97 L, Carbon Dioxide 24.1, Anion Gap 12, BUN 22 H, Creatinine 0.82, Est GFR (MDRD) Non-Af 105, BUN/Creatinine Ratio 26.7 H, Glucose 318 H, Calcium 8.9, Total Bilirubin 0.59, AST 22, ALT 21, Alkaline Phosphatase 78, Troponin T High Sens 56 H*, Total Protein 7.0, Albumin 3.4 L, Globulin 3.6, Albumin/Globulin Ratio 1.0 Imaging Radiology Impression Chest CTA 06/03/24 23:29 IMPRESSION: Findings are concerning for areas of pulmonary embolism at the right upper and left lower lobes as described above. Possible associated developing infarct at the left lower lobe as above. Findings discussed by myself by phone with Dr. Schneider at 1:07 a.m. 06/03/2024 Reading Location: [id number] Assessment & Plan Assessment/Plan (1) Bilateral pulmonary embolism: (2) Erythrocytosis: (3) Tachycardia: (4) Pulmonary embolism with infarction: (5) Elevated troponin: (6) Type 2 diabetes mellitus with hyperglycemia: QUALIFIERS: Diabetes mellitus exterminator helper insulin use: with exterminator helper use Qualified Code(s): E11.65 - Type 2 diabetes mellitus with hyperglycemia; Z79.4 - rat exterminator (current) use of insulin (7) Ear infection: (8) Morbid obesity with BMI of 50.0-59.9, adult: (9) Dehydration: (10) Hypertension: QUALIFIERS: Hypertension type: unspecified Qualified Code(s): I10 - Essential (primary) hypertension PLAN: Plan 1. CTA of the chest with IV contrast that revealed findings concerning for areas of Pulmonary Embolism at the RUL and KARINA with possible associated developing infarct at the LLL with Erythrocytosis indicated by elevated hemoglobin of 16.6 g/dL present on admission - Admit to PCU. Continue IV heparin begun in ER and titrate per protocol. Check TSH. Check Doppler study of lower extremities to evaluate for residual clot burden. Check echocardiogram to evaluate for signs of Right heart strain in light of #2. Check for ELINOR-2 mutation with erythrocytosis. Give acetaminophen as needed for [id number] (level 1-5/10) pain or fever. Give morphine IV as needed for severe (level 6-10/10) pain. 2. Persistent Tachycardia in the ~130 bpm range and mildly Elevated Troponin T of 56 ng/L present on admission suspected to be due to Acute Cardiac Strain due to #1 - Continue as needed IV Lopressor begun in the ER to keep heart rate ~100 bpm or less and/or blood pressure less than 160 mmHg. Serialize troponin. Check echocardiogram to evaluate LVEF and also to assess for evidence of Right heart strain. 3. Hyperglycemia of 318 mg/dL present on admission likely due to recent steroid administration in the setting of known chronic DM-2 complicating #1 & #2 - ADA/cardiac diet. Continue home insulin regimen plus give medium-intensity SSI. Check hemoglobin A1c to objectively evaluate quality of diabetic control. 4. Recent diagnosis of Ear Infection at Urgent Care; treated with oral amoxicillin and prednisone adding to the medical complexity of #1 - #3 - Resume oral amoxicillin but hold prednisone due to #3. 5. Super-morbid obesity; with BMI of 53 this admission with BROOKE; noncompliant with CPAP adding to the burden of disease outlined from #1 - #4 - Weight loss will be recommended. Check TSH with unintentional ~50 pound weight gain in the past 6 months. Restart nocturnal CPAP. This complicates his case and may hamper recovery. 6. Elevated BUN/creatinine ratio of 26.7 present on admission suggesting Dehydration amplifying the pathology outlined from #1 - #5 - Gently volume resuscitate and recheck renal indices in AM for signs of improvement. 7. Essential hypertension; on losartan and nifedipine - Hold losartan but continue nifedipine plus give Lopressor IV as needed to keep heart rate less than 100 bpm and blood pressure less than 160 mmHg as outlined in #2. 8. Hyperlipidemia; on atorvastatin - Continue statin and check Lipid Profile. 9. History of CVA; on BASA daily - Maintain current regimen with daily BASA. 10. History of seizures; on levetiracetam - Resume levetiracetam as previous. 11. OA - Give acetaminophen prn as outlined in #1. 12. DVT prophylaxis - Patient on IV heparin for #1. Total time: Approximately (but not less than) 75 minutes. Charges/Coding Visit Charges Inpatient E&M: 08646 Init Hosp L3
[2024-06-03] MEDS: HEPARIN/D5w 25,000 UNITS 25,000 UNITS/250 ML IV.SOLN. 10 UNITS CONT INF (01:38)
[2024-06-03] MEDS: Heparin Injection (Vial) 5,000 UNIT/ML VIAL 4000 UNIT IV (01:38)
[2024-06-03 01:45] LABS: Prothrombin Time (Protime)PT. 13.5 SECONDS (11.7-14.9)
[2024-06-03 01:46] LABS: Partial Thromboplast Time 26.5 Seconds (24.1-36.2)
[2024-06-03 02:14] LABS: Troponin T High Sens 2 HR 55 ng/L (<=22)
--- NOTE | 2024-06-03 02:28 | VDLE_ITS ---
Reason For Study Reason For Study: Pulmonary Embolism RIGHT LEFT GSV is normal. GSV is normal. CFV is compressible, spontaneous, phasic, competent CFV is compressible, spontaneous, phasic, competent, and demonstrates normal augmentation. and demonstrates normal augmentation. FV is compressible, spontaneous, phasic, competent FV is compressible, spontaneous, phasic, competent and demonstrates normal augmentation. and demonstrates normal augmentation. POP V is compressible, spontaneous, phasic, competent POP V is compressible, spontaneous, phasic, competent and demonstrates normal augmentation. and demonstrates normal augmentation. T/P Trunk is compressible. T/P Trunk is compressible. PTV is compressible. PTV is compressible. RT PerV is compressible. LT PerV is compressible. Procedure This is a venous duplex using B-mode, color flow and spectral Doppler. Exam performed portable in patient room. A preliminary report was called and/or faxed to Josie PEACOCK. VL/Venous Duplex US - Philip Extrem Interpretation Summary Deep veins of the bilateral lower extremities are patent and compressible segme ntally. There is no evidence of bilateral lower extremity deep vein thrombosis. The bilateral great saphenous veins appea r patent and compressible segmentally. Ordering Physician: Kaiden Pruett Referring Physician: Curtis Park Performed By: Francesca Fried, MILTON, RVT
--- NOTE | 2024-06-03 02:28 | ECHOCS_ITS ---
Reason For Study Reason For Study: Arrhythmia Procedure This was a 2D Doppler, Color Flow transthoracic echocardiogram. The study was technically difficult. Contrast injection was performed. Exam performed portable in patient room. Left Ventricle Moderate concentric left ventricular hypertrophy. Normal LV size. The left ventricular ejection fraction is 50 %. Stage 1 diastolic dysfunction. Right Ventricle Normal right ventricle. Atria There is mild biatrial dilatation. Mitral Valve Trivial mitral valve insufficiency. Tricuspid Valve Trivial tricuspid valve insufficiency. Unable to estimate RV systolic pressure due to insufficient tricuspid regurgitant envelope. Aortic Valve Trisinus/trileaflet aortic valve. Pulmonic Valve The pulmonic valve is not well visualized. Great Vessels Normal sized aortic root. Pericardium/Pleural No pericardial effusion. Medication Diluted definity 3.5ml given slow IV push to enhance endocardial definition. MMode/2D Measurements & Calculations LVIDd: 5.5 cm IVSd: 1.5 cm Ao root diam: 3.4 cm LVIDs: 4.1 cm LVPWd: 1.5 cm RVDd: 4.4 cm FS: 25.1 % LAV(MOD-bp): 57.9 ml LVAd ap4: 40.9 cm2 SV(MOD-sp4): 85.4 ml LAV(MOD-bp) Indexed: 22.1 ml/m2 LVLd ap4: 8.4 cm SI(MOD-sp4): 32.6 ml/m2 LAV(MOD-sp2): 51.5 ml EDV(MOD-sp4): 162.9 ml LAV(MOD-sp4): 57.5 ml EDV(sp4-el): 168.3 ml LVAs ap4: 25.6 cm2 LVLs ap4: 7.0 cm ESV(MOD-sp4): 77.6 ml ESV(sp4-el): 79.5 ml EF(MOD-sp4): 52.4 % EF(sp4-el): 52.8 % SV(sp4-el): 88.8 ml LA A4 area: 21.5 cm2 LA dimension(2D): 3.8 cm RA A4 area: 19.4 cm2 Doppler Measurements & Calculations MV E max vesta: 95.3 cm/sec MV V2 max: 113.2 cm/sec Ao V2 max: 110.2 cm/sec MV max P.2 mmHg Ao max P.9 mmHg MV V2 mean: 53.1 cm/sec Ao V2 mean: 82.8 cm/sec MV mean P.4 mmHg Ao mean P.1 mmHg MV V2 VTI: 24.6 cm Ao V2 VTI: 21.6 cm AV (velocity ratio): 0.77 LV V1 max: 90.5 cm/sec LV V1 max P.4 mmHg LV V1 mean P.0 mmHg LV V1 mean: 65.5 cm/sec LV V1 VTI: 16.8 cm ECHO/Echo Complete W/ Contrast Interpretation Summary Moderate concentric left ventricular hypertrophy. The left ventricular ejection fraction is 50 %. Stage 1 diastolic dysfunction. There is mild biatrial dilatation. The study was technically difficult. Ordering Physician: Kaiden Pruett Performed By: Derek Almendarez RCS
[2024-06-03] MEDS: Insulin Glargine-YFGN 100 UNIT/ML Pen 25 UNIT SC ×2 (03:15→23:06)
[2024-06-03] MEDS: NIFEdipine 30 MG Tablet PO (03:15)
[2024-06-03] MEDS: 0.9% Normal Saline (1000mL) 1,000 ML 100 ML IV (03:15)
[2024-06-03 03:41] LABS: Absolute Lymphocyte Count 2.49 X10^3/uL (0.83-4.51); Absolute Neutrophil Count 6.3 X10^3/uL (2.0-7.7); Basophil# 0.06 X10^3/uL; Basophil% 0.6 % (0-1); Hematocrit 48.3 % (40-54); Hemoglobin 15.9 g/dL (13.0-16.5); Lymphocyte # 2.49 X10^3/ul (0.83-4.51); Lymphocyte % 25.7 % (19-41); Mean Corp Hgb Conc 32.9 g/dL (32-36); Mean Corpuscular Hgb 26.5 pg (27.0-32.0); Mean Corpuscular Volume 80.6 fL (80-94); Mean Platelet Vol. 10.9 fl (6.2-12.0); Monocyte# 0.68 X10^3/uL; NRBC Flagged by Analyzer 0 % (0-5); Neutrophil # 6.29 X10^3/uL (2.7-7.7); Platelet Count 194 K/mm3 (150-450); RBC Distribution Width CV 13.4 % (11.6-14.6); RBC Distribution Width SD 38.5 fl (35.1-43.9); Red Blood Count 5.99 M/mm3 (4.6-6.2); White Blood Count 9.7 K/mm3 (4.4-11.0)
[2024-06-03 03:50] LABS: Bedside Glucose 262 mg/dL (74-106)
[2024-06-03 04:40] LABS: Hemoglobin A1c 12.2 % (<=5.6)
[2024-06-03 05:05] LABS: Cholesterol 174 mg/dL (<=200); High Density Lipoprotein 37 mg/dL; Low Density Lipoprotein Calc. 104 mg/dL; Phosphorus 3.4 mg/dL (2.7-4.5); Triglycerides 167 mg/dL; Very Low Density Lipoprotein 33 mg/dL (5-40); cholesterol:hdl ratio screen 4.72
[2024-06-03 05:08] LABS: AST(SGOT) 19 U/L (<=37); Alanine Aminotransfer ALT/SGPT 21 U/L (<=46); Albumin, Serum 3.4 g/dL (3.5-5.0); Alkaline Phosphatase 75 U/L (40-129); Anion Gap 13 (5-15); BUN 21 mg/dL (4-19); BUN/Creat Ratio 27.7 RATIO (10-20); Calcium,Total 8.8 mg/dL (7.6-11.0); Carbon Dioxide 24.3 mmol/L (21.0-32.0); Chloride 100 mmol/L (98-108); Creatinine, Serum 0.75 mg/dL (0.70-1.20); EST Glomerular Filtration Rate 107 (>60); Estimated Creatinine Clearance 169.48 ml/min (50-250); Globulin 3.5 g/dL (2.2-4.2); Glucose 282 mg/dL (70-99); Potassium 4.3 mmol/L (3.3-5.1); Protein, Total 6.9 g/dL (5.9-8.4); Sodium Level 137 mmol/L (133-145); Total Bilirubin 0.57 mg/dL (0.00-1.30)
[2024-06-03] MEDS: Metoprolol Tartrate 5 MG/5 ML Vial IV (05:14)
[2024-06-03] MEDS: 0.9% Saline Lock 10 ML Syringe IV (05:14)
[2024-06-03 05:33] LABS: Troponin T High Sens 4 HR 58 ng/L (<=22)
--- NOTE | 2024-06-03 06:22 | EKG12_ITS ---
Test Reason : CHANGE Blood Pressure : */* mmHG Vent. Rate : 117 BPM Atrial Rate : 271 BPM P-R Int : * ms QRS Dur : 112 ms QT Int : 376 ms P-R-T Axes : * -73 -45 degrees QTcB Int : 524 ms Atrial flutter with variable A-V block Left axis deviation Pulmonary disease pattern Minimal voltage criteria for LVH, may be normal variant ( Bartlett product ) Nonspecific ST abnormality Prolonged QT Abnormal ECG When compared with ECG of 02-Jun-2024 23:21, MANUAL COMPARISON REQUIRED DATA IS UNCONFIRMED Confirmed by ARACELI CAO, EARL ([id number]), news videotape editor JUVENTINO COOPER ([id number]) on 06/06/2024 1:36:02 PM Referred By: ZAFAR Confirmed By: EARL CHARLES MD
[2024-06-03] MEDS: Diltiazem 125 MG in Dextrose 5%-Water (100mL Bag) 100 ML IV (06:59)
--- NOTE | 2024-06-03 07:26 | PCM.PN.HOSP ---
Reason for Visit Reason for Visit: Diagnoses Secondary polycythemia (06/03/24) Type 2 diabetes mellitus with hyperglycemia (06/03/24) Morbid (severe) obesity due to excess calories (06/03/24) Dehydration (06/03/24) Otitis media, unspecified, unspecified ear (06/03/24) Essential (primary) hypertension (06/03/24) Other pulmonary embolism without acute cor pulmonale (06/03/24) Tachycardia, unspecified (06/03/24) Other specified abnormal findings of blood chemistry (06/03/24) Body mass index [BMI] 50.0-59.9, adult (06/03/24) skilled nursing (current) use of insulin (06/03/24) Subjective Subjective Patient is a 54-year-old gentleman who presented with palpitations. Was found to have elevated D-dimer and elevated troponin. Subsequent workup with CTA of the chest did show Findings are concerning for areas of pulmonary embolism at the right upper and left lower lobes as as well as Possible associated developing infarct at the left lower lobe Objective Data Objective Data Vital Signs: Vital Signs Temp Pulse Resp BP Pulse Ox O2 Del Method 98.6 F 119 H 16 124/104 H 96 Room Air 06/03/24 06:59 06/03/24 06:59 06/03/24 06:59 06/03/24 06:59 06/03/24 06:59 06/03/24 06:59 Oxygen Delivery Method Room Air Weight: 159.2 kg Body Mass Index (BMI) 51.8 Intake & Output: Intake and Output for Last 24 Hours 06/01/24 06/02/24 06/03/24 23:59 23:59 23:59 Intake Total 1500 / 1500 Balance 1500 / 1500 Lab / Micro Data 06/03/24 03:31 06/03/24 03:31 Labs: Laboratory Results - last 24 hr 06/02/24 23:30: WBC 10.0, RBC 6.30 H, Hgb 16.6 H, Hct 51.2, MCV 81.3, MCH 26.3 L, MCHC 32.4, RDW Std Deviation 39.6, RDW Coeff of Masha 13.6, Plt Count 212, MPV 11.9, Immature Gran % (Auto) 1.300 H, Neut % (Auto) 65.1, Lymph % (Auto) 24.7, [place] % (Auto) 7.5, Eos % (Auto) 0.7, Baso % (Auto) 0.7, Absolute Neuts (auto) 6.5, Absolute Lymphs (auto) 2.46, Nucleated RBC % 0, Sodium 133, Potassium 4.5, Chloride 97 L, Carbon Dioxide 24.1, Anion Gap 12, BUN 22 H, Creatinine 0.82, Est GFR (MDRD) Non-Af 105, BUN/Creatinine Ratio 26.7 H, Glucose 318 H, Calcium 8.9, Total Bilirubin 0.59, AST 22, ALT 21, Alkaline Phosphatase 78, Troponin T High Sens 56 H*, Total Protein 7.0, Albumin 3.4 L, Globulin 3.6, Albumin/Globulin Ratio 1.0 06/03/24 01:28: PT 13.5, INR 1.0, APTT 26.5, Magnesium 2.0, Troponin T Hi Sens 2 Hr 55 H*, TSH 2.300 06/03/24 03:15: POC Glucose 262 H 06/03/24 03:31: WBC 9.7, RBC 5.99, Hgb 15.9, Hct 48.3, MCV 80.6, MCH 26.5 L, MCHC 32.9, RDW Std Deviation 38.5, RDW Coeff of Masha 13.4, Plt Count 194, MPV 10.9, Immature Gran % (Auto) 0.700, Neut % (Auto) 65.0, Lymph % (Auto) 25.7, [place] % (Auto) 7.0, Eos % (Auto) 1.0, Baso % (Auto) 0.6, Absolute Neuts (auto) 6.3, Absolute Lymphs (auto) 2.49, Nucleated RBC % 0, Sodium 137, Potassium 4.3, Chloride 100, Carbon Dioxide 24.3, Anion Gap 13, BUN 21 H, Creatinine 0.75, Estim Creat Clear Calc 169.48, Est GFR (MDRD) Non-Af 107, BUN/Creatinine Ratio 27.7 H, Glucose 282 H, Hemoglobin A1c 12.2 H, Calcium 8.8, Phosphorus 3.4, Total Bilirubin 0.57, AST 19, ALT 21, Alkaline Phosphatase 75, Troponin T Hi Sens 4Hr 58 H*, Total Protein 6.9, Albumin 3.4 L, Globulin 3.5, Albumin/Globulin Ratio 1.0, Triglycerides 167, Cholesterol 174, LDL Cholesterol, Calc 104, VLDL Cholesterol 33, HDL Cholesterol 37 L, Cholesterol/HDL Ratio 4.72 Radiography Diagnostic Testing: Radiology Impression Chest CTA 06/03/24 23:29 IMPRESSION: Findings are concerning for areas of pulmonary embolism at the right upper and left lower lobes as described above. Possible associated developing infarct at the left lower lobe as above. Findings discussed by myself by phone with Dr. Schneider at 1:07 a.m. 06/03/2024 Reading Location: [facility] Physical Exam Narrative GENERAL: cooperative HEENT: Atraumatic; normocephalic EYES; Anicteric, Normal Conjunctiva NECK; supple, normal thyroid, RESPIRATORY: Diminished to auscultation CARDIOVASCULAR: Regular S1 S2, GI: soft, normoactive bowel sounds, : No Renal angle tenderness; EXTREMITIES: No edema, no clubbing, MUSCULOSKELETAL: no muscle wasting NEURO: Awake; no lateralizing signs. SKIN: No Rash PSYCH; Flat affect Assessment & Plan Assessment/Plan (1) Bilateral pulmonary embolism: (2) Erythrocytosis: (3) Tachycardia: (4) Pulmonary embolism with infarction: (5) Elevated troponin: (6) Type 2 diabetes mellitus with hyperglycemia: QUALIFIERS: Diabetes mellitus shelter insulin use: with shelter use Qualified Code(s): E11.65 - Type 2 diabetes mellitus with hyperglycemia; Z79.4 - skilled nursing (current) use of insulin (7) Ear infection: (8) Morbid obesity with BMI of 50.0-59.9, adult: (9) Dehydration: (10) Hypertension: QUALIFIERS: Hypertension type: unspecified Qualified Code(s): I10 - Essential (primary) hypertension PLAN: Plan Patient is a 54-year-old gentleman who presented with palpitations. Was found to have elevated D-dimer and elevated troponin. Subsequent workup with CTA of the chest did show Findings are concerning for areas of pulmonary embolism at the right upper and left lower lobes as as well as Possible associated developing infarct at the left lower lobe 1. Acute pulmonary embolism ? CTA of the chest did show Findings are concerning for areas of pulmonary embolism at the right upper and left lower lobes as as well as Possible associated developing infarct at the left lower lobe patient was started on heparin admitted to monitored bed 2D echo ordered for subsequent eval 2. New onset a flutter/A-fib ? Admitted to telemetry. Patient started on heparin as part of treatment for his pulmonary embolism. Patient was started on IV Cardizem plan is to wean off and start patient on p.o. Cardizem 3. Elevated troponin ? Secondary to demand ischemia from tachycardia as well as patient pulmonary embolism 4. Diabetes mellitus type 2 ? Patient presented with elevated glucose levels of 318 due to recent steroid use. Hemoglobin A1c came back at 12.2. Patient subsequently started on long-acting insulin in addition to Accu-Cheks AC and at bedtime. Patient was also placed on 1800 ADA diet and consultation placed to dietitian 5. Recent otitis media ? Patient was treated with amoxicillin 6. Hypertension ? Blood pressure controlled, home medications continued with dose adjustment as needed 7. Dyslipidemia ?Patient is on statin therapy, continued at home dose 8. Obstructive sleep apnea ? Consistent use of PAP therapy encouraged 9. History of CVA ? Patient is on antiplatelet therapy with aspirin continue 10. History of seizure disorder ? Patient is on Keppra did continue 11. Class III obesity with BMI of 52 ? Complicating care weight loss advised Time spent in the patient's overall evaluation,decision-making process, review of diagnostic data, adjustment of management, discussion with other providers, nursing nursing and ancillary staff involved in patient's care documentation, 45 Minutes Charges/Coding Multi Select Codes Visit Charges Visit Charges: 62192 PROLNG IP/OBS E/M EA 15 MIN (Subsequent care-time spent 45 minutes)
[2024-06-03] MEDS: Insulin Lispro 100 UNIT/ML INSULN.PEN 10 UNIT SC ×2 (07:35→11:52)
[2024-06-03] MEDS: Aspirin 81 MG TAB.CHEW PO (07:37)
[2024-06-03] MEDS: AMOXICILLIN 875 MG TABLET PO ×2 (07:37→17:58)
[2024-06-03] MEDS: levETIRAcetam 500 MG Tablet PO ×2 (07:37→23:05)
[2024-06-03 07:53] LABS: Partial Thromboplast Time 30.4 Seconds (24.1-36.2)
[2024-06-03 08:12] LABS: Bedside Glucose 239 mg/dL (74-106)
[2024-06-03] MEDS: Heparin Injection (Vial) 5,000 UNIT/ML VIAL IV (08:37)
[2024-06-03] MEDS: APIXABAN 5 MG TABLET 10 MG PO ×2 (10:48→23:05)
[2024-06-03] MEDS: dilTIAZem CD 120 MG Capsule PO ×2 (10:48→23:06)
[2024-06-03 12:15] LABS: Bedside Glucose 228 mg/dL (74-106)
--- NOTE | 2024-06-03 13:40 | CASEMGMT ---
AYUSH BYRNE Assessment Face to Face with patient for initial transition planning/care coordination assessment. AYUSH BYRNE introduced self and role at [facility], pt voices understanding. Pt is A&Ox4 and is resting comfortably in bed and is calm. Care providers, pharmacy, and demographics verified. Admitting dx: BL PE's, Pulm Infarction, Hyperglycemia, AFIB LACE Strata: 1 PCP: [facility] Specialists: Pt states that he sees a neurologist and and Medical Center Representative in [place] but cannot recall the names Preferred Pharmacy: [facility] [facility] @ [employer]. Otherwise, [facility] Insurance: [facility] Prescription Benefit: Yes LNOK: Nisreen Abdi (Daughter), Alisia Abdi (Sister) Living Arrangements: Pt lives with his daughter and GS (14 month old) in a trailer with 9 total steps to enter. Pt states that the steps are small and manageable. ADLs/IADLs: Pt states that he is mainly independent but that his daughter is able to help as needed Transportation: Self, family. Denies concerns DME: Pt states that he has a history with [facility] for PAP therapy. Pt states that he did not want to wear the PAP any longer so he returned the equipment. Now, pt states that he wants another PAP device but does not want to go through [facility] again. Pt was advised to get a sleep study completed for a new PAP machine. Pt states understanding and that he has had multiple sleep studies completed in the past and denies concerns. Pt may also qualify for regular home oxygen use. A verbal list of local in-network DME companies were provided to the pt at this time. Pt prefers [facility]Pt also reports that he has a BGM with sufficient supplies, W/C, standing walker, and shower grab bars. HHC/SNF: reports HH history x5 years ago but cannot recall the agency. Denies SNF history or needs Medication compliancy: Per chart review, pt was not taking his home medications recently. This AYUSH BYRNE inquired about this and the pt states that it was due to difficulties with [facility] and that he now does not have any issues as he has been using [facility] since. Pt?s goal: Home Plan: Home with OP therapy, follow for blood thinning Rx and oxygen needs. Pt plans to f/u as an OP for a sleep study. At this time, the pt states that he would like to attend OP PT/OT for general strengthening and balance. Pt states that he will make the appt himself and denies further needs at this time. Report given to EDIPHONE OPERATORMaranda Miller
[2024-06-03 16:40] LABS: Bedside Glucose 145 mg/dL (74-106)
[2024-06-03] MEDS: Atorvastatin Calcium 40 MG Tablet PO (23:06)
--- NOTE | 2024-06-03 23:29 | CT_ITS ---
PROCEDURE: CTA CHEST W/WO CONTRAST 06/03/2024 REASON FOR EXAM: TACHYCARDIA TECHNIQUE: CTA imaging of the chest with intravenous contrast. Multiplanar and multisequence images were obtained. Maximum intensity projection (MIPs) Volume rendering and CONTRAST: 100 cc Isovue 370 IV One or more dose reduction techniques were used (e.g., Automated exposure control, adjustment of the mA and/or kV according to patient size, use of iterative reconstruction technique). RADIATION DOSE SUMMARY: CTDlvol: 42.74 mGy DLP: 607.93 mGycm COMPARISON: None available FINDINGS: Nonocclusive filling defect is seen at the right upper lobe segmental branching of the interlobar artery for example axial 190 and coronal 161 consistent with nonocclusive pulmonary embolism. Bandlike opacity at the left lower lobe with lack of contrast definitely seen in the subsegmental pulmonary artery branches for example axial 112 concerning for possible occlusive subsegmental branch pulmonary embolism and possible associated developing pulmonary infarct. No large central saddle pulmonary embolism. No CT evidence to suggest possible right heart strain. Patchy ground-glass opacity at the lingula, nonspecific. The central airways appear patent. Small bandlike subpleural opacity posterior right upper lobe for example axial 190. Thoracic aorta and standard appearing 3 branch arch appears within limits. Note of mild appearing coronary calcification. No pericardial or pleural effusion. No adenopathy identified. Sequela of previous granulomatous disease. Limited images of the upper abdomen with suggestion of possible punctate calcified gallstones for example axial 24. Status post lower cervical anterior fusion, partially imaged. CT/CTA Chest W/WO Contrast IMPRESSION: Findings are concerning for areas of pulmonary embolism at the right upper and left lower lobes as described above. Possible associated developing infarct at the left lower lobe as above. Findings discussed by myself by phone with Dr. Schneider at 1:07 a.m. 06/03/2024 Reading Location: [id number]
[2024-06-04 00:47] VITALS: BP 132/110; PULSE 137
[2024-06-04] MEDS: Metoprolol Tartrate 5 MG/5 ML Vial IV (00:47)
[2024-06-04 00:50] LABS: Bedside Glucose 212 mg/dL (74-106)
--- NOTE | 2024-06-04 01:15 | EKG12_ITS ---
Test Reason : NEW AFIB Blood Pressure : */* mmHG Vent. Rate : 120 BPM Atrial Rate : 264 BPM P-R Int : * ms QRS Dur : 108 ms QT Int : 360 ms P-R-T Axes : * -65 -26 degrees QTcB Int : 508 ms Atrial flutter with variable A-V block Left axis deviation Pulmonary disease pattern Incomplete right bundle branch block Minimal voltage criteria for LVH, may be normal variant ( Leroy product ) Abnormal ECG When compared with ECG of 03-Jun-2024 06:22, MANUAL COMPARISON REQUIRED DATA IS UNCONFIRMED Confirmed by ARACELI CAO, EARL ([id number]), sports editor WINDY THOMAS ([id number]) on 06/05/2024 1:23:38 PM Referred By: Confirmed By: EARL CHARLES MD
[2024-06-04 03:42] VITALS: BMI 51.8
[2024-06-04 03:45] VITALS: BP 141/92; PULSE 104; RESP 18; TEMP 36.2; O2SAT 97
[2024-06-04 06:42] LABS: Absolute Lymphocyte Count 2.81 X10^3/uL (0.83-4.51); Absolute Neutrophil Count 4.5 X10^3/uL (2.0-7.7); Basophil# 0.07 X10^3/uL; Basophil% 0.9 % (0-1); Eosinophils% 2.4 % (0-5); Hematocrit 46.2 % (40-54); Hemoglobin 15.2 g/dL (13.0-16.5); Lymphocyte # 2.81 X10^3/ul (0.83-4.51); Lymphocyte % 34.2 % (19-41); Mean Corp Hgb Conc 32.9 g/dL (32-36); Mean Corpuscular Hgb 26.8 pg (27.0-32.0); Mean Corpuscular Volume 81.5 fL (80-94); Mean Platelet Vol. 11.8 fl (6.2-12.0); Monocyte# 0.57 X10^3/uL; Monocyte% 6.9 % (0-10); NRBC Flagged by Analyzer 0 % (0-5); Neutrophil # 4.54 X10^3/uL (2.7-7.7); Neutrophil % 55.2 % (47-70); Platelet Count 172 K/mm3 (150-450); RBC Distribution Width CV 13.6 % (11.6-14.6); RBC Distribution Width SD 39.8 fl (35.1-43.9); Red Blood Count 5.67 M/mm3 (4.6-6.2); White Blood Count 8.2 K/mm3 (4.4-11.0)
[2024-06-04 07:04] LABS: Anion Gap 11 (5-15); BUN 15 mg/dL (4-19); Calcium,Total 8.4 mg/dL (7.6-11.0); Carbon Dioxide 21.9 mmol/L (21.0-32.0); Chloride 104 mmol/L (98-108); Creatinine, Serum 0.59 mg/dL (0.70-1.20); EST Glomerular Filtration Rate 115 (>60); Estimated Creatinine Clearance 214.88 ml/min (50-250); Glucose 187 mg/dL (70-99); Magnesium 2.1 mg/dL (1.5-2.2); Phosphorus 3.3 mg/dL (2.7-4.5); Potassium 4.3 mmol/L (3.3-5.1); Sodium Level 137 mmol/L (133-145)
[2024-06-04 07:25] VITALS: O2SAT 93
--- NOTE | 2024-06-04 07:32 | PN.HOSP_ITS ---
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 (06/03/24) Objective Data Objective Data Vital Signs: Vital Signs Temp Pulse Resp BP Pulse Ox O2 Del Method 97.2 F L 104 H 18 141/92 H 97 Room Air 06/04/24 03:45 06/04/24 03:45 06/04/24 03:45 06/04/24 03:45 06/04/24 03:45 06/04/24 03:45 Oxygen Delivery Method Room Air Weight: 159.3 kg Body Mass Index (BMI) 51.8 Intake & Output: Intake and Output for Last 24 Hours 06/02/24 06/03/24 06/04/24 23:59 23:59 23:59 Intake Total 3135.10 / 3635.10 1000 / 1000 Output Total 800 / 1400 1200 / 1200 Balance 2335.10 / 2235.10 -200 / -200 Lab / Micro Data 06/04/24 05:27 06/04/24 05:27 Labs: Laboratory Results - last 24 hr 06/03/24 07:30: APTT 30.4 06/03/24 07:34: POC Glucose 239 H 06/03/24 11:50: POC Glucose 228 H 06/03/24 16:22: POC Glucose 145 H 06/03/24 22:58: POC Glucose 212 H 06/04/24 05:27: WBC 8.2, RBC 5.67, Hgb 15.2, Hct 46.2, MCV 81.5, MCH 26.8 L, MCHC 32.9, RDW Std Deviation 39.8, RDW Coeff of Masha 13.6, Plt Count 172, MPV 11.8, Immature Gran % (Auto) 0.400, Neut % (Auto) 55.2, Lymph % (Auto) 34.2, [place] % (Auto) 6.9, Eos % (Auto) 2.4, Baso % (Auto) 0.9, Absolute Neuts (auto) 4.5, Absolute Lymphs (auto) 2.81, Nucleated RBC % 0, Sodium 137, Potassium 4.3, Chloride 104, Carbon Dioxide 21.9, Anion Gap 11, BUN 15, Creatinine 0.59 L, Estim Creat Clear Calc 214.88, Est GFR (MDRD) Non-Af 115, BUN/Creatinine Ratio 26.0 H, Glucose 187 H, Calcium 8.4, Phosphorus 3.3, Magnesium 2.1 Radiography Diagnostic Testing: Radiology Impression Echocardiogram 06/03/24 02:28 Interpretation Summary Moderate concentric left ventricular hypertrophy. The left ventricular ejection fraction is 50 %. Stage 1 diastolic dysfunction. There is mild biatrial dilatation. The study was technically difficult. Ordering Physician: Kaiden Pruett Performed By: Derek Almendarez, [facility] Venous Doppler Study 06/03/24 02:28 Interpretation Summary Deep veins of the bilateral lower extremities are patent and compressible segmentally. There is no evidence of bilateral lower extremity deep vein thrombosis. The bilateral great saphenous veins appear patent and compressible segmentally. Ordering Physician: Kaiden Pruett Referring Physician: [facility] Performed By: Francesca Fried, RDCS, RVT Physical Exam Narrative GENERAL: cooperative HEENT: Atraumatic; normocephalic EYES; Anicteric, Normal Conjunctiva NECK; supple, normal thyroid, RESPIRATORY: Diminished to auscultation CARDIOVASCULAR: Regular S1 S2, GI: soft, normoactive bowel sounds, : No Renal angle tenderness; EXTREMITIES: No edema, no clubbing, MUSCULOSKELETAL: no muscle wasting NEURO: Awake; no lateralizing signs. 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 Was found to have elevated D-dimer and elevated troponin. Subsequent workup with CTA of the chest did show Findings are concerning for areas of pulmonary embolism at the right upper and left lower lobes as as well as Possible associated developing infarct at the left lower lobe 1. Acute pulmonary embolism ? CTA of the chest did show Findings are concerning for areas of pulmonary embolism at the right upper and left lower lobes as as well as Possible associated developing infarct at the left lower lobe patient was started on heparin admitted to monitored bed 2D echo ordered for subsequent eval ? 06/04/2024; bilateral venous duplex came back negative for DVT. 2D echo did show Moderate concentric left ventricular hypertrophy. The left ventricular ejection fraction is 50 %. Stage 1 diastolic dysfunction. There is mild biatrial dilatation. 2. New onset a flutter/A-fib ? Admitted to telemetry. Patient started on heparin as part of treatment for his pulmonary embolism. Patient was started on IV Cardizem plan is to wean off and start patient on p.o. Cardizem 3. Elevated troponin ? Secondary to demand ischemia from tachycardia as well as patient pulmonary embolism 4. Diabetes mellitus type 2 ? Patient presented with elevated glucose levels of 318 due to recent steroid use. Hemoglobin A1c came back at 12.2. Patient subsequently started on long- acting insulin in addition to Accu-Cheks AC and at bedtime. Patient was also placed on 1800 ADA diet and consultation placed to dietitian 5. Recent otitis media ? Patient was treated with amoxicillin 6. Hypertension ? Blood pressure controlled, home medications continued with dose adjustment as needed 7. Dyslipidemia ?Patient is on statin therapy, continued at home dose 8. Obstructive sleep apnea ? Consistent use of PAP therapy encouraged 9. History of CVA ? Patient is on antiplatelet therapy with aspirin continue 10. History of seizure disorder ? Patient is on Keppra did continue 11. Class III obesity with BMI of 52 ? Complicating care weight loss advised Time spent in the patient's overall evaluation,decision-making process, review of diagnostic data, adjustment of management, discussion with other providers, nursing nursing and ancillary staff involved in patient's care documentation, 45 Minutes
[2024-06-04 08:38] VITALS: BP 121/81; PULSE 66; RESP 16; TEMP 36.6; O2SAT 92
[2024-06-04] MEDS: AMOXICILLIN 875 MG TABLET PO (08:45)
[2024-06-04] MEDS: Aspirin 81 MG TAB.CHEW PO (08:45)
[2024-06-04] MEDS: dilTIAZem CD 120 MG Capsule PO (08:46)
[2024-06-04] MEDS: Insulin Lispro 100 UNIT/ML INSULN.PEN 10 UNIT SC (08:46)
[2024-06-04] MEDS: levETIRAcetam 500 MG Tablet PO (08:46)
[2024-06-04] MEDS: APIXABAN 5 MG TABLET 10 MG PO (08:46)
--- NOTE | 2024-06-04 08:47 | PCM.DC.SUM ---
Providers Date of Admission: 06/03/24 Date of Discharge: 06/04/24 Primary Care Physician: Dr. Curtis Park MD Reason For Visit: BILATERAL PE'S, PULM INFARCTION, HYPERGLYCEMIA AND Diagnosis Discharge Diagnosis (1) Bilateral pulmonary embolism: Status: Acute Code(s): I26.99 - Other pulmonary embolism without acute cor pulmonale (2) Erythrocytosis: Status: Acute Code(s): D75.1 - Secondary polycythemia (3) Tachycardia: Status: Acute Code(s): R00.0 - Tachycardia, unspecified (4) Pulmonary embolism with infarction: Status: Acute Code(s): I26.99 - Other pulmonary embolism without acute cor pulmonale (5) Elevated troponin: Status: Acute Code(s): R79.89 - Other specified abnormal findings of blood chemistry (6) Type 2 diabetes mellitus with hyperglycemia: Status: Acute Code(s): E11.65 - Type 2 diabetes mellitus with hyperglycemia Qualifiers: Diabetes mellitus remote computer terminal operator insulin use: with remote computer terminal operator use Qualified Code(s): E11.65 - Type 2 diabetes mellitus with hyperglycemia; Z79.4 - superintendent terminal (current) use of insulin (7) Ear infection: Status: Acute Code(s): H66.90 - Otitis media, unspecified, unspecified ear (8) Morbid obesity with BMI of 50.0-59.9, adult: Status: Acute Code(s): E66.01 - Morbid (severe) obesity due to excess calories; Z68.43 - Body mass index [BMI] 50.0-59.9, adult (9) Dehydration: Status: Acute Code(s): E86.0 - Dehydration (10) Hypertension: Status: Chronic Code(s): I10 - Essential (primary) hypertension Qualifiers: Hypertension type: unspecified Qualified Code(s): I10 - Essential (primary) hypertension Plan Patient is a 54-year-old gentleman who presented with palpitations. Was found to have elevated D-dimer and elevated troponin. Subsequent workup with CTA of the chest did show Findings are concerning for areas of pulmonary embolism at the right upper and left lower lobes as as well as Possible associated developing infarct at the left lower lobe 1. Acute pulmonary embolism ? CTA of the chest did show Findings are concerning for areas of pulmonary embolism at the right upper and left lower lobes as as well as Possible associated developing infarct at the left lower lobe patient was started on heparin admitted to monitored bed 2D echo ordered for subsequent eval ? 06/04/2024; bilateral venous duplex came back negative for DVT. 2D echo did show Moderate concentric left ventricular hypertrophy. The left ventricular ejection fraction is 50 %. Stage 1 diastolic dysfunction. There is mild biatrial dilatation. 2. New onset a flutter/A-fib ? Admitted to telemetry. Patient started on heparin as part of treatment for his pulmonary embolism. Patient was started on IV Cardizem plan is to wean off and start patient on p.o. Cardizem ? Prescription written for Cardizem on discharge 3. Elevated troponin ? Secondary to demand ischemia from tachycardia as well as patient pulmonary embolism 4. Diabetes mellitus type 2 ? Patient presented with elevated glucose levels of 318 due to recent steroid use. Hemoglobin A1c came back at 12.2. Patient subsequently started on long-acting insulin in addition to Accu-Cheks AC and at bedtime. Patient was also placed on 1800 ADA diet and consultation placed to dietitian 5. Recent otitis media ? Patient was treated with amoxicillin 6. Hypertension ? Blood pressure controlled, home medications continued with dose adjustment as needed 7. Dyslipidemia ?Patient is on statin therapy, continued at home dose 8. Obstructive sleep apnea ? Consistent use of PAP therapy encouraged 9. History of CVA ? Patient is on antiplatelet therapy with aspirin continue 10. History of seizure disorder ? Patient is on Keppra did continue 11. Class III obesity with BMI of 52 ? Complicating care weight loss advised Time spent in the patient's overall evaluation,decision-making process, review of diagnostic data, adjustment of management, discussion with other providers, nursing nursing and ancillary staff involved in patient's care documentation, 35 Minutes Medications at Discharge Home Medications levetiracetam 500 mg tablet 500 mg PO BID keppra 11/01/23 aspirin 81 mg chewable tablet 1 tab PO DAILY heart health 06/03/24 atorvastatin 40 mg tablet 40 mg PO QHS choleterol 06/03/24 apixaban 5 mg tablet 5 mg PO BID #134 tabs 06/04/24 diltiazem HCl 120 mg capsule,extended release 24 hr 120 mg PO Q12 120 days #240 caps 06/04/24 insulin glargine 100 unit/mL (3 mL) subcutaneous pen (Lantus Solostar U-100 Insulin) 25 unit (0.25 mL) subcut DAILY diabetes #15 mL 06/04/24 insulin lispro 100 unit/mL subcutaneous pen 10 unit subcut TID diabetes #15 mL 06/04/24 Physical Exam Narrative GENERAL: cooperative HEENT: Atraumatic; normocephalic EYES; Anicteric, Normal Conjunctiva NECK; supple, normal thyroid, RESPIRATORY: Diminished to auscultation CARDIOVASCULAR: Regular S1 S2, GI: soft, normoactive bowel sounds, : No Renal angle tenderness; EXTREMITIES: No edema, no clubbing, MUSCULOSKELETAL: no muscle wasting NEURO: Awake; no lateralizing signs. SKIN: No Rash PSYCH; Flat affect Weight / BMI Weight Weight: 159.3 kg Body Mass Index (BMI) 51.8 ABG / Lab / Microbiology Data 06/04/24 05:27 06/04/24 05:27 Laboratory: Laboratory Results - last 24 hr 06/03/24 11:50: POC Glucose 228 H 06/03/24 16:22: POC Glucose 145 H 06/03/24 22:58: POC Glucose 212 H 06/04/24 05:27: WBC 8.2, RBC 5.67, Hgb 15.2, Hct 46.2, MCV 81.5, MCH 26.8 L, MCHC 32.9, RDW Std Deviation 39.8, RDW Coeff of Masha 13.6, Plt Count 172, MPV 11.8, Immature Gran % (Auto) 0.400, Neut % (Auto) 55.2, Lymph % (Auto) 34.2, Barron % (Auto) 6.9, Eos % (Auto) 2.4, Baso % (Auto) 0.9, Absolute Neuts (auto) 4.5, Absolute Lymphs (auto) 2.81, Nucleated RBC % 0, Sodium 137, Potassium 4.3, Chloride 104, Carbon Dioxide 21.9, Anion Gap 11, BUN 15, Creatinine 0.59 L, Estim Creat Clear Calc 214.88, Est GFR (MDRD) Non-Af 115, BUN/Creatinine Ratio 26.0 H, Glucose 187 H, Calcium 8.4, Phosphorus 3.3, Magnesium 2.1 Radiography Diagnostic Testing: Radiology Impression Echocardiogram 06/03/24 02:28 Interpretation Summary Moderate concentric left ventricular hypertrophy. The left ventricular ejection fraction is 50 %. Stage 1 diastolic dysfunction. There is mild biatrial dilatation. The study was technically difficult. Ordering Physician: Kaiden Pruett Performed By: Derek Almendarez RCS Venous Doppler Study 06/03/24 02:28 Interpretation Summary Deep veins of the bilateral lower extremities are patent and compressible segmentally. There is no evidence of bilateral lower extremity deep vein thrombosis. The bilateral great saphenous veins appear patent and compressible segmentally. Ordering Physician: Kaiden Pruett Referring Physician: Curtis Park Performed By: Francesca Fried, MILTON, RVT D/C Instructions Discharge Diet: 1800 Calorie Control Diet Discharge Activity: Return to Normal Activity Call your doctor if you observe: Fever of 101 or Higher, Shortness of breath, Fainting spells and Chest pain DC O2, CPAP, BIPAP Needs Home O2 Discharge instructions: No Meaningful Use Info Meaningful Use Meaningful Use Diagnoses (Choose all that apply): VTE Ischemic Stroke Statin Dosing Therapy Reference: STATIN DOSE THERAPY REFERENCE: * Patients > 75 years receive moderate or high dose statin therapy. * Patients 75 years or YOUNGER should receive HIGH intensity statin dose unless contraindicated. You will be required to document reason for non-treatment if statin daily dose does not meet guidelines. HIGH DOSE STATIN THERAPY DAILY Atorvastatin > than or = to 40 mg Rosuvastatin > than or = to 20 mg Amlodipine + Atorvastatin > than or = to 2.5/40 mg Ezetimibe + Simvastatin 10/80 mg Simvastatin 80mg VTE Anticoag overlap given w/in hospital stay or rx'd at wv?: No Pt receive overlap for 5 days?: No Reason overlap not ordered, prescribed, or given for 5 days: Treatment Not Indicated Discharge Plan Admission Admit Date/Time: 06/03/24 02:08 Attending Provider: Kaiden Bullard Primary Care Provider: Curtis Park Consulting Providers: Kaiden Pruett Discharge Orders/Prescriptions Prescriptions: New diltiazem HCl 120 mg Capsule,Extended Release 24hr 120 mg PO Q12 120 Days Qty: 240 0RF apixaban 5 mg tablet 5 mg PO BID Qty: 134 0RF Rx Instructions: 10 mg twice daily for 7 days and subsequently 5 mg twice daily Continued levetiracetam 500 mg tablet 500 mg PO BID aspirin 81 mg tablet,chewable 1 tab PO DAILY atorvastatin 40 mg tablet 40 mg PO QHS Changed insulin lispro 100 unit/mL insulin pen 10 unit subcut TID Qty: 15 0RF Protocol: 6. Sliding Scale Insulin Custom Condition: mg/dl range Dose/Route: Number of Units Protocol Text: Custom Sliding Scale Rx Instructions: patient on sliding scale with meals subcutaneously three times a day; insulin glargine [Lantus Solostar U-100 Insulin] 100 unit/mL (3 mL) insulin pen 25 unit subcut DAILY Qty: 15 0RF Discontinued losartan 50 mg tablet 50 mg PO DAILY amoxicillin 875 mg tablet 875 mg PO BID Patient Comments: 4 pills left in home medication bottle nifedipine 30 mg tablet extended release 30 mg PO DAILY Referrals / Follow Up: Anna Collins MD [Med Staff - Active Staff] - Within 1 Month (New onset A-fib) Curtis Park MD [Primary Care Provider] - Within 2 Weeks Disposition Disposition (needs filled in before D/C Order can be placed): Home, Self Care Charges/Coding Visit Charges Inpatient E&M: 31104 Disch Hosp >30min
--- NOTE | 2024-06-04 11:41 | PHA.DC.MC.R ---
Pharmacy [facility] has performed discharge medication reconciliation and counseling for this patient. 1. Apixaban 10mg PO BID x 7 days, then 5mg thereafter 2. Diltiazem CD 120mg PO BID 3. Insulin glargine and insulin lispro changed 4. Stop losartan, Augmentin, nifedipine The patient's discharge medication list was reviewed for discrepancies and discrepancies were resolved. The patient was counseled on the following discharge medications and changes in medications for homegoing were reviewed. The Reason for Use, instructions for use, and potential side effects were reviewed for all new medications. The patient's questions regarding all of their medications were answered. The patient was able to verbally demonstrate an understanding of their discharge medications. Patient counseled by pharmacy sales assistant, Adams. Medications at Discharge Home Medications levetiracetam 500 mg tablet 500 mg PO BID keppra 11/01/23 aspirin 81 mg chewable tablet 1 tab PO DAILY heart health 06/03/24 atorvastatin 40 mg tablet 40 mg PO QHS choleterol 06/03/24 apixaban 5 mg tablet 5 mg PO BID #134 tabs 06/04/24 diltiazem HCl 120 mg capsule,extended release 24 hr 120 mg PO Q12 120 days #240 caps 06/04/24 insulin glargine 100 unit/mL (3 mL) subcutaneous pen (Lantus Solostar U-100 Insulin) 25 unit (0.25 mL) subcut DAILY diabetes #15 mL 06/04/24 insulin lispro 100 unit/mL subcutaneous pen 10 unit subcut TID diabetes #15 mL 06/04/24
[2024-06-04 11:52] LABS: Bedside Glucose 174 mg/dL (74-106)
[2024-06-04 12:24] LABS: Bedside Glucose 127 mg/dL (74-106)
--- NOTE | 2024-06-04 13:13 | CASEMGMT ---
Patient has order for discharge. AYUSH CM in to discuss needs at discharge. Patient would like outpatient therapy at [facility] and requested [facility] to call patient to schedule appt. Patient denies further needs or concerns. Patient had no further questions or concerns. AYUSH BYRNE received scrip for outpatient therapy and referral sent to [facility]. AYUSH BYRNE provided outpatient therapy script in discharge packet.
[2024-06-04 13:20] VITALS: BP 117/75; PULSE 67; RESP 17; TEMP 36.5; O2SAT 98
[2024-06-04 13:41] VITALS: BP 117/75; PULSE 67; RESP 17; TEMP 36.5; O2SAT 98
== END 2024-06-04 13:40 | disposition home or self-care (01) | DRG 134 ==
LOC: ED 06-03 01:20 → PCU 06-03 05:18
PROVIDERS: Admitting Provider Internal Medicine; Emergency Provider Emergency Medicine; Visit Provider Internal Medicine
DX: I26.09 Other pulmonary embolism with acute cor pulmonale (principal); I24.89 Other forms of acute ischemic heart disease; Z68.43 Body mass index [BMI] 50.0-59.9, adult; E11.65 Type 2 diabetes mellitus with hyperglycemia; D75.1 Secondary polycythemia; E66.813 Obesity, class 3; E86.0 Dehydration; I48.91 Unspecified atrial fibrillation; G40.909 Epilepsy, unspecified, not intractable, without status epilepticus; I10 Essential (primary) hypertension; F17.210 Nicotine dependence, cigarettes, uncomplicated; Z79.4 Long term (current) use of insulin; M19.90 Unspecified osteoarthritis, unspecified site; E78.00 Pure hypercholesterolemia, unspecified; G47.33 Obstructive sleep apnea (adult) (pediatric); H66.90 Otitis media, unspecified, unspecified ear; Z86.73 Personal history of transient ischemic attack (TIA), and cerebral infarction without residual deficits; R79.89 Other specified abnormal findings of blood chemistry; Z79.82 Long term (current) use of aspirin; Z79.02 Long term (current) use of antithrombotics/antiplatelets; Z79.899 Other long term (current) drug therapy; Z91.199 Patient's noncompliance with other medical treatment and regimen due to unspecified reason
CPT/HCPCS: 36415; 71275; 80048; 80053; 80061; 81270; 82962; 83036; 83735; 84100; 84443; 84484; 85025; 85610; 85730; 93005; 93306; 93970; 94668; 99284; 99406; Q9957; Q9967; A4216; C8929

== ENCOUNTER 2024-07-02 12:43 | Inpatient (IN) | payer MEDICAID, SELFPAY ==
[2024-07-02] VITALS (12 sets, daily range): BP systolic 107–155; BP diastolic 66–112; PULSE 59–117; RESP 18–28; TEMP 36.6–37.1; O2SAT 84–95; BMI 55.6; BMI 54.3
--- NOTE | 2024-07-02 13:28 | CT_ITS ---
PROCEDURE: CTA CHEST W/WO CONTRAST 07/02/2024 REASON FOR EXAM: PE, HISTORY OF PE TECHNIQUE: CTA axial imaging of the chest with intravenous contrast. Multiplanar and multisequence images were obtained. PATIENT PREPARATION: Per protocol CONTRAST: Isovue 370 VOLUME: 100 mL One or more dose reduction techniques were used (e.g., Automated exposure control, adjustment of the mA and/or kV according to patient size, use of iterative reconstruction technique). RADIATION DOSE SUMMARY: CTDlvol: 23 mGy DLP: 535.79 mGycm . COMPARISON: Prior study dated June 03, 2024. FINDINGS: Hardware: None Lymph nodes: Small benign-appearing mediastinal lymph nodes. Heart: Mild cardiomegaly. Coronary artery calcification. Thoracic Aorta: No thoracic aortic aneurysm or dissection. Pulmonary Vessels: No evidence of pulmonary embolism. Lungs and Airways: Small bilateral pleural effusions right greater than left with bibasilar infiltration and/or atelectasis. Upper Abdomen: Unremarkable Bones: Bone windows are unremarkable. CT/CTA Chest W/WO Contrast IMPRESSION: Bilateral pleural effusions right greater than left with bibasilar infiltration and/or atelectasis. No evidence of pulmonary embolism. Reading Location: [place] [address]
--- NOTE | 2024-07-02 13:28 | EKG12_ITS ---
Test Reason : COUGH Blood Pressure : */* mmHG Vent. Rate : 59 BPM Atrial Rate : 236 BPM P-R Int : * ms QRS Dur : 102 ms QT Int : 452 ms P-R-T Axes : 46 110 -29 degrees QTcB Int : 447 ms Atrial flutter with 4:1 A-V conduction Left posterior fascicular block Possible Anterior infarct , age undetermined Abnormal ECG Confirmed by Fabio Velasquez ([id number]), industrial editor WINDY THOMAS ([id number]) on 07/08/2024 11:23:53 AM Referred By: Confirmed By: Fabio Velasquez
[2024-07-02 13:45] LABS: Absolute Lymphocyte Count 1.47 X10^3/uL (0.83-4.51); Absolute Neutrophil Count 7.7 X10^3/uL (2.0-7.7); Eosinophil# 0.14 X10^3/uL; Eosinophils% 1.4 % (0-5); Hematocrit 45.4 % (40-54); Hemoglobin 14.7 g/dL (13.0-16.5); Lymphocyte # 1.47 X10^3/ul (0.83-4.51); Lymphocyte % 14.5 % (19-41); Mean Corp Hgb Conc 32.4 g/dL (32-36); Mean Corpuscular Hgb 26.6 pg (27.0-32.0); Mean Corpuscular Volume 82.1 fL (80-94); Monocyte# 0.78 X10^3/uL; Monocyte% 7.7 % (0-10); NRBC Flagged by Analyzer 0 % (0-5); Neutrophil # 7.65 X10^3/uL (2.7-7.7); Neutrophil % 75.1 % (47-70); Platelet Count 214 K/mm3 (150-450); RBC Distribution Width SD 40.9 fl (35.1-43.9); Red Blood Count 5.53 M/mm3 (4.6-6.2); White Blood Count 10.2 K/mm3 (4.4-11.0)
[2024-07-02 13:56] LABS: International Normalized Ratio 1.3; Prothrombin Time (Protime)PT. 16.1 SECONDS (11.7-14.9)
[2024-07-02 13:57] LABS: Partial Thromboplast Time 34.4 Seconds (24.1-36.2)
--- NOTE | 2024-07-02 14:14 | ED.VIS.DYS ---
HPI History of Present Illness Chief Complaint: Shortness of Breath Narrative Narrative: Chief complaint and HPI: Shortness of breath. History taken by patient as well as medical record. 54-year-old gentleman with history of DM2, HTN, recent diagnosis of atrial fibrillation and PE on Eliquis presents for evaluation of shortness of breath. Onset of shortness of breath approximately 2 days ago. Shortness of breath is worse when lying flat and with ambulation. Patient states he has had some nasal congestion but otherwise denies fever, chills, cough, chest pain. States he has not missed any of his Eliquis doses. Has been taking his medication. On chart review from discharge from 06/04 patient was admitted to our hospital due to new onset a flutter/A-fib and bilateral PE. He had bilateral venous duplex that was negative for DVT. He had an echocardiogram that showed moderate concentric left ventricular hypertrophy with an EF of 50% and stage I diastolic dysfunction. He was placed on Eliquis and diltiazem. Review of systems: See HPI Medications: As listed on the chart Allergies: As listed on the chart PFSH: Per chart Vital signs: As listed on the chart. Reviewed. Physical exam: Gen: A&O x3, NAD Head: Normocephalic, atraumatic Eyes: No sclera icterus, conjunctiva clear ENT: Moist mucous membranes, + nasal congestion Neck: Trachea midline, No JVD CV: RRR, no murmurs, no peripheral edema Resp: Lungs CTA BL, no w/r/c, on 2 L nasal cannula GI: Abd soft, non-distended, non-tender, no r/r/g Musc: Full ROM, no deformity Skin: Warm, dry Neuro: Alert, oriented, grossly intact, sensation intact Psych: Cooperative, appropriate mood and affect [facility] Medical History Sleep apnea Seizures Stroke/cerebrovascular accident Hypertension High cholesterol Diabetes Home Medications ?Medication ?Instructions ?Recorded ?Last Taken ?Type levetiracetam 500 mg tablet 500 mg PO BID keppra 11/01/23 05/27/24 History aspirin 81 mg chewable tablet 1 tab PO DAILY heart health 06/03/24 Unknown History atorvastatin 40 mg tablet 40 mg PO QHS choleterol 06/03/24 05/27/24 History apixaban 5 mg tablet 5 mg PO BID #134 tabs 06/04/24 Unknown Rx diltiazem HCl 120 mg 120 mg PO Q12 120 days #240 caps 06/04/24 Unknown Rx capsule,extended release 24 hr insulin glargine 100 unit/mL (3 25 unit (0.25 mL) subcut DAILY 06/04/24 05/20/24 Rx mL) subcutaneous pen (Lantus diabetes #15 mL Solostar U-100 Insulin) insulin lispro 100 unit/mL 10 unit subcut TID diabetes #15 mL 06/04/24 05/20/24 Rx subcutaneous pen empagliflozin 10 mg tablet 10 mg PO DAILY 07/02/24 Unknown History (Jardiance) Allergy/AdvReac Type Severity Reaction Status Date / Time No Known Allergies Allergy Verified 07/02/24 12:49 Surgical History Hx of neck surgery Social History household members: spouse and family housing: house Smoking Status: Never smoker EXAM Physical Exam Const Vital Signs: 07/02/24 12:44 07/02/24 12:57 07/02/24 12:57 Temperature 97.9 F 98.6 F Temperature Source Oral Oral Pulse Rate 117 H 74 Respiratory Rate 20 H 19 H Respiratory Effort Normal Non-Labored Respiratory Depth Normal Respiratory Pattern Normal Blood Pressure 131/68 H 130/79 H Blood Pressure Mean 89 96 Pulse Ox 88 90 Oxygen Delivery Method Room Air Nasal Cannula Room Air Oxygen Flow Rate (L/min) 2 07/02/24 13:15 07/02/24 13:16 07/02/24 13:37 Temperature Temperature Source Pulse Rate Respiratory Rate Respiratory Effort Respiratory Depth Respiratory Pattern Blood Pressure Blood Pressure Mean Pulse Ox 88 90 90 Oxygen Delivery Method Nasal Cannula Nasal Cannula Nasal Cannula Oxygen Flow Rate (L/min) 2 3 3 07/02/24 13:49 07/02/24 14:00 Temperature 98.6 F 98.3 F Temperature Source Oral Oral Pulse Rate 59 L 59 L Respiratory Rate 28 H 20 H Respiratory Effort Respiratory Depth Respiratory Pattern Blood Pressure 130/78 H 143/85 H Blood Pressure Mean 95 104 Pulse Ox 90 90 Oxygen Delivery Method Nasal Cannula Nasal Cannula Oxygen Flow Rate (L/min) 3 3 MDM MDM MDM Narrative Medical decision making narrative: 54-year-old gentleman with history of DM2, HTN, recent diagnosis of atrial fibrillation and PE on Eliquis presents for evaluation of shortness of breath. Onset of shortness of breath 2 days ago. Worse with lying flat and ambulation. Recently diagnosed with a flutter/fib and bilateral PE on Eliquis. Has not missed a dose of his Eliquis. Recent echocardiogram in May showed an EF of 50%. On presentation, patient mildly hypertensive, tachycardic, hypoxic on room air. Placed on nasal cannula 3 L with saturations at 90%. Differential diagnosis includes but is not limited to worsening PE, CHF, arrhythmia, anemia, electrolyte abnormality, viral illness, pneumonia. Cardiac/respiratory workup ordered including CT of the chest. EKG reviewed see below. CBC without leukocytosis or anemia. Platelets unremarkable. INR normal. BMP without significant electrolyte abnormality or SARABJIT. Troponin 54. Patient not having any chest pain and although it is elevated it is downtrending from May at 56. Will still obtain delta. BNP elevated at 2001. Patient did just have an echocardiogram on 06/03 that showed preserved EF of 50%. Stage I diastolic dysfunction with moderate concentric left ventricular hypertrophy. CTA chest negative for PE however he does have bilateral pleural effusions right greater than left with bibasilar infiltrate or atelectasis. Given patient is not endorsing any cough, fever, chills I have low suspicion for infiltrate. He also does not have any leukocytosis therefore suspect it is atelectasis. Patient's shortness of breath as well as acute hypoxia is likely secondary to his pleural effusions and elevated BNP. IV Lasix ordered. On reevaluation, patient is still requiring 3 L nasal cannula with saturations of 90%. We did try to titrate this down and patient remained at 88% and patient had to be titrated back up. Patient states he is usually not hypoxic with normal oxygen saturations on room air. On chart review, in May patient remained in the high 90s on room air with his oxygen saturations. Given patient is requiring oxygen, he will warrant admission. Patient discussed with Dr. Hamm accepted admission. Patient was updated of all the results and the plan. He confirmed understanding. EKG: Interpreted by me/EM physician: EKG shows atrial flutter. No ST elevation. Heart rate 59. Impression: 1. Acute hypoxia requiring nasal cannula 2. CHF exacerbation 3. Pleural effusions 4. History of atrial flutter/fibrillation with previous PE on Eliquis Lab Data Labs: Laboratory Results - last 24 hr 07/02/24 13:14 WBC 10.2 RBC 5.53 Hgb 14.7 Hct 45.4 MCV 82.1 MCH 26.6 L MCHC 32.4 RDW Std Deviation 40.9 RDW Coeff of Masha 14.0 Plt Count 214 MPV 12.0 Immature Gran % (Auto) 0.300 Neut % (Auto) 75.1 H Lymph % (Auto) 14.5 L Mingo % (Auto) 7.7 Eos % (Auto) 1.4 Baso % (Auto) 1.0 Absolute Neuts (auto) 7.7 Absolute Lymphs (auto) 1.47 Nucleated RBC % 0 PT 16.1 H INR 1.3 APTT 34.4 Sodium 139 Potassium 4.2 Chloride 103 Carbon Dioxide 25.2 Anion Gap 11 BUN 16 Creatinine 0.66 L Estim Creat Clear Calc 200.49 Est GFR (MDRD) Non-Af 111 BUN/Creatinine Ratio 23.5 H Glucose 182 H Calcium 9.2 Troponin T High Sens 54 H* NT pro BNP II 2002 H Radiography Diagnostic Testing: Clinical Impression(s) from Imaging Studies Chest CTA 07/02/24 13:28 IMPRESSION: Bilateral pleural effusions right greater than left with bibasilar infiltration and/or atelectasis. No evidence of pulmonary embolism. Reading Location: [place] [address] Discharge Plan Triage Chief Complaint: Shortness of Breath ED Provider: Derek Gray Dx/Rx/DC Orders Prescriptions: No Action levetiracetam 500 mg tablet 500 mg PO BID Jardiance 10 mg tablet 10 mg PO DAILY aspirin 81 mg tablet,chewable 1 tab PO DAILY atorvastatin 40 mg tablet 40 mg PO QHS diltiazem HCl 120 mg Capsule,Extended Release 24hr 120 mg PO Q12 120 Days Qty: 240 0RF apixaban 5 mg tablet 5 mg PO BID Qty: 134 0RF Rx Instructions: 10 mg twice daily for 7 days and subsequently 5 mg twice daily insulin lispro 100 unit/mL insulin pen 10 unit subcut TID Qty: 15 0RF Protocol: 6. Sliding Scale Insulin Custom Condition: mg/dl range Dose/Route: Number of Units Protocol Text: Custom Sliding Scale Rx Instructions: patient on sliding scale with meals subcutaneously three times a day; insulin glargine [Lantus Solostar U-100 Insulin] 100 unit/mL (3 mL) insulin pen 25 unit subcut DAILY Qty: 15 0RF Primary Care Provider: Curtis Park Referrals: Curtis Park MD [Primary Care Provider] - Print Language: Scottish
[2024-07-02 14:24] LABS: Anion Gap 11 (5-15); BUN 16 mg/dL (4-19); BUN/Creat Ratio 23.5 RATIO (10-20); Calcium,Total 9.2 mg/dL (7.6-11.0); Carbon Dioxide 25.2 mmol/L (21.0-32.0); Chloride 103 mmol/L (98-108); Creatinine, Serum 0.66 mg/dL (0.70-1.20); EST Glomerular Filtration Rate 111 (>60); Estimated Creatinine Clearance 200.49 ml/min (50-250); Glucose 182 mg/dL (70-99); Potassium 4.2 mmol/L (3.3-5.1); Sodium Level 139 mmol/L (133-145)
[2024-07-02 14:25] LABS: Pro- Brain NATRIURETIC PEPTIDE 2002 pg/mL (<=900); Troponin T High Sensitivity 54 ng/L (<=22)
[2024-07-02] MEDS: Furosemide 40 MG/4 ML Vial IV (15:57)
--- NOTE | 2024-07-02 16:09 | HP.PCM.HOS_ITS ---
HPI - General General Date of Service: 07/02/24 Chief Complaint: Shortness of breath HPI Narrative MAXWELL SANDHU, is a 54 M who presents with shortness of breath over the past 2 days. Has not slept and is unable to lay flat because he gets more short of breath laying flat. Presented to the emergency room where he underwent a CTA of the chest that showed increased bilateral pleural effusions. And on his intake weight appears that he is put on roughly 10 kg since his discharge on June 04. Patient received one-time dose of 40 mg IV furosemide. [facility] Medical History Sleep apnea Seizures Stroke/cerebrovascular accident Hypertension High cholesterol Diabetes Home Medications ?Medication ?Instructions ?Recorded ?Last Taken ?Type levetiracetam 500 mg tablet 500 mg PO BID keppra 10/3107/02/24 History aspirin 81 mg chewable tablet 1 tab PO DAILY heart hea lth 06/03/24 07/02/24 History atorvastatin 40 mg tablet 40 mg PO QHS choleterol 05/0807/02/24 History apixaban 5 mg tablet 5 mg PO BID #134 tabs 07/02/24 Rx diltiazem HCl 120 mg 120 mg PO Q12 120 days #240 caps 06/04/24 07/02/24 Rx capsule,extended release 24 hr insulin glargine 100 unit/mL (3 25 unit (0.25 mL) subc ut DAILY 06/04/24 07/02/24 Rx mL) subcutaneous pen (Lantus diabetes #15 mL Solostar U-100 Insulin) insulin lispro 100 unit/mL 10 unit subcut TID diabetes #15 mL 06/04/24 07/02/24 Rx subcutaneous pen empagliflozin 10 mg tablet 10 mg PO DAILY 07/02/24 Unk nown History (Jardiance) Allergy/AdvReac Type Severity Reaction Status Date / Time No Known Allergies Allergy Verified 07/02/24 12:49 Family History (Updated 07/02/24 @ 16:[address] Des Hamm DO) Other Heart disease Surgical History Hx of neck surgery Social History household members: spouse and family housing: house Smoking Status: Never smoker ROS ROS Narrative No fever or chills. No chest pain. No abdominal pain. All review of systems were negative except as mentioned above in the history of present illness and the other review of systems. Vital Signs Vital Signs Vital Signs: 07/02/24 12:44 07/02/24 12:57 07/02/24 12:57 Temperature 36.6 C 37.0 C Temperature Source Oral Oral Pulse Rate 117 H 74 Respiratory Rate 20 H 19 H Respiratory Effort Normal Non-Labored Respiratory Depth Normal Respiratory Pattern Normal Blood Pressure 131/68 H 130/79 H Blood Pressure Mean 89 96 Pulse Ox 88 90 Oxygen Delivery Method Room Air Nasal Cannula Room Air Oxygen Flow Rate (L/min) 2 07/02/24 13:15 07/02/24 13:16 07/02/24 13:37 Temperature Temperature Source Pulse Rate Respiratory Rate Respiratory Effort Respiratory Depth Respiratory Pattern Blood Pressure Blood Pressure Mean Pulse Ox 88 90 90 Oxygen Delivery Method Nasal Cannula Nasal Cannula Nasal Cannula Oxygen Flow Rate (L/min) 2 3 3 07/02/24 13:49 07/02/24 14:00 07/02/24 15:00 Temperature 37.0 C 36.8 C 37.0 C Temperature Source Oral Oral Oral Pulse Rate 59 L 59 L 74 Respiratory Rate 28 H 20 H 18 Respiratory Effort Respiratory Depth Respiratory Pattern Blood Pressure 130/78 H 143/85 H 107/77 Blood Pressure Mean 95 104 87 Pulse Ox 90 90 90 Oxygen Delivery Method Nasal Cannula Nasal Cannula Nasal Cannula Oxygen Flow Rate (L/min) 3 3 3 07/02/24 16:02 Temperature 37.0 C Temperature Source Pulse Rate 74 Respiratory Rate 18 Respiratory Effort Respiratory Depth Respiratory Pattern Blood Pressure 107/77 Blood Pressure Mean 87 Pulse Ox 90 Oxygen Delivery Method Oxygen Flow Rate (L/min) Weight Weight: 170.9 kg Body Mass Index (BMI) 55.6 Physical Exam Narrative POCUS: Limited POCUS exam was for heart failure. Using curvilinear probe (as no cardiac probe was available on the ED ultrasound) IVC was dilated and noncompressible with inspiration. Subxiphoid view of the heart. Show that was grossly normal. - Physical Exam General: Alert, Oriented x3, Cooperative HEENT: Atraumatic, PERRLA, EOMI, Normocephalic Oral: Moist Mucosa, No Gingival or Mucosal Lesions/ Ulcerations Neck: Supple, No JVD, Negative Carotid Bruits Lungs: Bibasilar crackles, Normal air movement Cardiovascular: Regular rate, Normal S1, Normal S2, No murmurs Abdomen: Bowel Sounds Present, Soft, Non Tender, Non-Distended, No Hepato- splenomegaly Extremities: No clubbing, No cyanosis, bilateral lower extremity edema. Skin: No rashes, No breakdown Musculoskeletal: No Tenderness to Palpation of Joints or Extremities Neurological: Moves all extremity spontaneously. Psych/Mental Status: Normal Affect, Appropriate Results Lab / Micro Data Attestation: I reviewed the patient's lab results. 07/02/24 13:14 07/02/24 13:14 Labs: Laboratory Results - last 24 hr 07/02/24 13:14: WBC 10.2, RBC 5.53, Hgb 14.7, Hct 45.4, MCV 82.1, MCH 26.6 L, MCHC 32.4, RDW Std Deviation 40.9, RDW Coeff of Masha 14.0, Plt Count 214, MPV 12.0, Immature Gran % (Auto) 0.300, Neut % (Auto) 75.1 H, Lymph % (Auto) 14.5 L, [place] % (Auto) 7.7, Eos % (Auto) 1.4, Baso % (Auto) 1.0, Absolute Neuts (auto) 7.7, Absolute Lymphs (auto) 1.47, Nucleated RBC % 0, PT 16.1 H, INR 1.3, APTT 34.4, Sodium 139, Potassium 4.2, Chloride 103, Carbon Dioxide 25.2, Anion Gap 11, BUN 16, Creatinine 0.66 L, Estim Creat Clear Calc 200.49, Est GFR (MDRD) Non-Af 111, BUN/Creatinine Ratio 23.5 H, Glucose 182 H, Calcium 9.2, Troponin T High Sens 54 H*, NT pro BNP II 2002 H Micro: Microbiology 07/02/24 13:33 Mucosa - Nose SARS-CoV-2, Influenza & RSV (PCR) - Final EKG Initial EKG: Attestation: I personally reviewed and interpreted this EKG as follows: Prior EKG tracings: available for review EKG Rhythm Intrepretation: Atrial Flutter Imaging Radiology Impression Chest CTA 07/02/24 13:28 IMPRESSION: Bilateral pleural effusions right greater than left with bibasilar infiltration and/or atelectasis. No evidence of pulmonary embolism. Reading Location: [facility] Assessment & Plan Assessment/Plan (1) (HFpEF) heart failure with preserved ejection fraction: PLAN: Acute Patient has increased pleural effusions on his CT as compared to imaging from 06/03. Additionally his weight is gone up roughly 10 kg since his discharge on 04 June. Patient received 40 mg of IV furosemide in the ED. With his marked edema and the fact that he has worsened, put on a furosemide drip. Daily weights. I impressed on upon the patient that he needs to get a scale at home keep a record of his weights and would need to manage his weights until he gets down to his dry weight. In that way he can tell also if he started to put on weight he may not have any noticeable changes nor symptoms but that could certainly reflect that he may be having worsening heart failure if he is able to monitor his weight. Will also have nutrition reinforced dietary restrictions regards to fluid restriction as well as sodium restriction. PLAN: Plan Chronic conditions * Atrial flutter: Anticoagulant with apixaban. Continue with diltiazem. * Diabetes mellitus type 2: Insulin-dependent. Continue with his glargine and prandial insulin. Add sliding scale insulin. Continue with empagliflozin. Check an A1c. * Seizure disorder: Continue levetiracetam. * Hyperlipidemia: Continue with atorvastatin. VTE prophylaxis: Not indicated as patient is already anticoagulated. Charges/Coding Visit Charges Inpatient E&M: 26808 Init Hosp L3
--- NOTE | 2024-07-02 16:40 | CASEMGMT ---
Social Work SW met with patient and confirmed that all information n previous assessment remains accurate. Patient also requested to have home O2 and CPAP set up if he qualifies. Patient would prefer to use [employer]. No further needs identified at this time. Anitha Chandra, TELEGRAPH EDITOR, CLIENT CARE COORDINATOR
[2024-07-02 16:43] LABS: Troponin T High Sens 2 HR 56 ng/L (<=22)
[2024-07-02] MEDS: Furosemide 500 MG in Empty Viaflex 50 mL 1 EACH CONT INF (18:43)
[2024-07-02] MEDS: 0.9% Saline Lock 10 ML Syringe IV (18:46)
[2024-07-02] MEDS: dilTIAZem CD 120 MG Capsule PO (22:55)
[2024-07-02] MEDS: Atorvastatin Calcium 40 MG Tablet PO (22:55)
[2024-07-02] MEDS: levETIRAcetam 500 MG Tablet PO (22:55)
[2024-07-02] MEDS: APIXABAN 5 MG TABLET PO (22:56)
[2024-07-02] MEDS: Insulin Lispro 100 UNIT/ML INSULN.PEN SC (23:12)
[2024-07-02 23:38] LABS: Bedside Glucose 174 mg/dL (74-106)
[2024-07-03] VITALS (7 sets, daily range): BP systolic 136–154; BP diastolic 88–119; PULSE 84–112; RESP 18–20; TEMP 35.8–36.4; O2SAT 94–97; BMI 52.7
[2024-07-03 06:07] LABS: Absolute Lymphocyte Count 1.72 X10^3/uL (0.83-4.51); Absolute Neutrophil Count 7.2 X10^3/uL (2.0-7.7); Basophil# 0.06 X10^3/uL; Basophil% 0.6 % (0-1); Hematocrit 45.2 % (40-54); Hemoglobin 14.5 g/dL (13.0-16.5); Lymphocyte # 1.72 X10^3/ul (0.83-4.51); Mean Corp Hgb Conc 32.1 g/dL (32-36); Mean Corpuscular Hgb 26.3 pg (27.0-32.0); Mean Corpuscular Volume 81.9 fL (80-94); Mean Platelet Vol. 11.4 fl (6.2-12.0); Monocyte# 0.85 X10^3/uL; Monocyte% 8.4 % (0-10); NRBC Flagged by Analyzer 0 % (0-5); Neutrophil # 7.24 X10^3/uL (2.7-7.7); Neutrophil % 71.6 % (47-70); Platelet Count 206 K/mm3 (150-450); RBC Distribution Width CV 13.9 % (11.6-14.6); RBC Distribution Width SD 40.5 fl (35.1-43.9); Red Blood Count 5.52 M/mm3 (4.6-6.2); White Blood Count 10.1 K/mm3 (4.4-11.0)
[2024-07-03 06:29] LABS: Anion Gap 13 (5-15); BUN 15 mg/dL (4-19); BUN/Creat Ratio 20.2 RATIO (10-20); Carbon Dioxide 25.5 mmol/L (21.0-32.0); Chloride 100 mmol/L (98-108); Creatinine, Serum 0.75 mg/dL (0.70-1.20); EST Glomerular Filtration Rate 107 (>60); Estimated Creatinine Clearance 171.49 ml/min (50-250); Glucose 140 mg/dL (70-99); Potassium 3.7 mmol/L (3.3-5.1); Sodium Level 138 mmol/L (133-145)
[2024-07-03 06:38] LABS: Hemoglobin A1c 11.1 % (<=5.6)
[2024-07-03 08:22] LABS: Bedside Glucose 148 mg/dL (74-106)
[2024-07-03] MEDS: Aspirin 81 MG TAB.CHEW PO (09:10)
[2024-07-03] MEDS: APIXABAN 5 MG TABLET PO ×2 (09:10→23:20)
[2024-07-03] MEDS: levETIRAcetam 500 MG Tablet PO ×2 (09:10→23:20)
[2024-07-03] MEDS: Insulin Lispro 100 UNIT/ML INSULN.PEN 10 UNIT SC ×3 (09:10→17:21)
[2024-07-03] MEDS: dilTIAZem CD 120 MG Capsule PO ×2 (09:10→23:20)
[2024-07-03] MEDS: Empagliflozin 10 MG Tablet PO (09:10)
[2024-07-03] MEDS: Insulin Glargine-YFGN 100 UNIT/ML Pen 25 UNIT SC (09:11)
[2024-07-03] MEDS: Insulin Lispro 100 UNIT/ML INSULN.PEN SC (11:23)
--- NOTE | 2024-07-03 11:24 | PCM.PN.HOSP ---
Reason for Visit Reason for Visit: Diagnoses Unspecified diastolic (congestive) heart failure (07/02/24) Subjective Subjective Saw patient at bedside this morning. Patient was laying back comfortably in bed, conversing normally, in no acute distress. Noted that he has had significant urine output since admission on the Lasix drip. Does continue to report some orthopnea but otherwise denies shortness of breath at rest. Has not been out of bed yet since coming up to the floor, unsure if he has dyspnea on exertion. Denies any other pain or discomfort this morning. No other acute concerns today. Objective Data Objective Data Vital Signs: Vital Signs Temp Pulse Resp BP Pulse Ox O2 Del Method O2 Flow Rate 97.6 F L 93 18 136/95 H 94 Nasal Cannula 3 07/03/24 06:00 07/03/24 07:00 07/03/24 06:00 07/03/24 06:00 07/03/24 10:00 07/03/24 10:00 07/03/24 10:00 Oxygen Flow Rate (L/min) 3 Oxygen Delivery Method Nasal Cannula Weight: 161.297 kg Body Mass Index (BMI) 52.7 Intake & Output: Intake and Output for Last 24 Hours 07/01/24 07/02/24 07/03/24 23:59 23:59 23:59 Intake Total 200 / 600 700 / 700 Output Total 450 / 2000 2650 / 2650 Balance -250 / -1400 -1950 / -1950 Lab / Micro Data 07/03/24 05:44 07/03/24 05:44 Labs: Laboratory Results - last 24 hr 07/02/24 13:14: WBC 10.2, RBC 5.53, Hgb 14.7, Hct 45.4, MCV 82.1, MCH 26.6 L, MCHC 32.4, RDW Std Deviation 40.9, RDW Coeff of Masha 14.0, Plt Count 214, MPV 12.0, Immature Gran % (Auto) 0.300, Neut % (Auto) 75.1 H, Lymph % (Auto) 14.5 L, Green % (Auto) 7.7, Eos % (Auto) 1.4, Baso % (Auto) 1.0, Absolute Neuts (auto) 7.7, Absolute Lymphs (auto) 1.47, Nucleated RBC % 0, PT 16.1 H, INR 1.3, APTT 34.4, Sodium 139, Potassium 4.2, Chloride 103, Carbon Dioxide 25.2, Anion Gap 11, BUN 16, Creatinine 0.66 L, Estim Creat Clear Calc 200.49, Est GFR (MDRD) Non-Af 111, BUN/Creatinine Ratio 23.5 H, Glucose 182 H, Calcium 9.2, Troponin T High Sens 54 H*, NT pro BNP II 2002 H 07/02/24 16:04: Troponin T Hi Sens 2 Hr 56 H* 07/02/24 23:00: POC Glucose 174 H 07/03/24 05:44: WBC 10.1, RBC 5.52, Hgb 14.5, Hct 45.2, MCV 81.9, MCH 26.3 L, MCHC 32.1, RDW Std Deviation 40.5, RDW Coeff of Masha 13.9, Plt Count 206, MPV 11.4, Immature Gran % (Auto) 0.400, Neut % (Auto) 71.6 H, Lymph % (Auto) 17.0 L, Green % (Auto) 8.4, Eos % (Auto) 2.0, Baso % (Auto) 0.6, Absolute Neuts (auto) 7.2, Absolute Lymphs (auto) 1.72, Nucleated RBC % 0, Sodium 138, Potassium 3.7, Chloride 100, Carbon Dioxide 25.5, Anion Gap 13, BUN 15, Creatinine 0.75, Estim Creat Clear Calc 171.49, Est GFR (MDRD) Non-Af 107, BUN/Creatinine Ratio 20.2 H, Glucose 140 H, Hemoglobin A1c 11.1 H, Calcium 9.0 07/03/24 08:00: POC Glucose 148 H Micro: Microbiology 07/02/24 13:33 Mucosa - Nose SARS-CoV-2, Influenza & RSV (PCR) - Final Radiography Diagnostic Testing: Radiology Impression Chest CTA 07/02/24 13:28 IMPRESSION: Bilateral pleural effusions right greater than left with bibasilar infiltration and/or atelectasis. No evidence of pulmonary embolism. Reading Location: [place] [id number] Physical Exam Const alert, oriented x3 and no apparent distress Constitutional Narrative: Pleasant middle-age male, class III obesity, mildly fatigued appearing but otherwise laying back comfortably in bed, conversing normally, in no acute distress. General Appearance: cooperative and comfortable HEENT normocephalic, head/scalp atraumatic, hearing grossly normal bilaterally, nasal mucous membranes and turbinates normal and moist oral mucous membranes Eyes PERRL, EOMs intact bilaterally and conjunctivae normal Neck full ROM Chest inspection of chest normal Resp normal respiratory effort and no use of accessory muscles Resp Narrative: Breathing comfortably on 4 L nasal cannula at rest. Decreased breath sounds noted at bilateral lung bases with mild crackles in mid lung zones noted. Otherwise good air movement noted in upper to mid lungs with no wheezing noted. Cardio regular rate, regular rhythm, no murmurs and peripheral pulses 2+ throughout GI normal to inspection, nondistended, normoactive bowel sounds, soft to palpation, non-tender and non-distended Back/Spine normal ROM Extremity full ROM Extremity Narrative: +2-3 lower extremity pitting edema noted. Skin no rashes or lesions noted Psych mental status grossly normal Assessment & Plan Assessment/Plan (1) Acute heart failure with preserved ejection fraction (HFpEF): (2) Hypoxia: PLAN: Plan Patient is a 54-year-old male who presented to [facility] ED on 07/02/2024 with worsening shortness of breath. 1. Acute HFpEF exacerbation with hypoxia ? Recent hospitalization for acute PE as noted below. Echo on 06/04 showed EF 50% with moderate concentric LV hypertrophy and stage I diastolic dysfunction along with mild biatrial dilatation. CTA chest on this admit showed no PE but did show bilateral pleural effusions right greater than left. BNP 2001 (underestimated given his morbid obesity). Treated with IV Lasix drip at 10 mg/h with very good urine output to this point. Wean supplemental oxygen as able. Follow-up a.m. BMP and continue to monitor urine output. 2. Recent bilateral PE ? Recently hospitalized here from 06/03-06/04. CTA chest showed findings concerning for areas of pulmonary embolism in the right upper and left lower lobes. Lower extremity duplex ultrasound was negative for DVT. Weaned off supplemental oxygen then on discharge and started on Eliquis. Repeat CTA chest on this admission with no PE noted. Continue home Eliquis. 3. Paroxysmal A-fib/flutter ? Patient diagnosed with new onset A-fib/flutter during recent hospitalization in May. Was in normal sinus rhythm on admission but did flip into A-fib with heart rate in the 110s for a few hours, held back in normal sinus rhythm. Continue home Eliquis and diltiazem. Continue cardiac monitoring. Chronic medical conditions: ? Class III obesity: BMI 52 on admit. Complicates hospital course, care and prognosis. Encouraged weight loss. ? Type 2 diabetes mellitus: A1c 11.1% on admit. Continue home Lantus 25 units daily and Humalog 10 units with meals plus sliding scale, adjust as needed. ? Hyperlipidemia: Continue home statin. ? Seizure disorder: Continue home Keppra. DVT prophylaxis: Not indicated, on Eliquis CODE STATUS: Full code, verified Expected disposition: Home, 2 to 3 days Total clinical time spent by myself addressing the patient's medical issues, reviewing all the data, and collaborating with patient's care team: 35 minutes. Charges/Coding Visit Charges Inpatient E&M: 15886 Subs Hosp L2
[2024-07-03 11:54] LABS: Bedside Glucose 164 mg/dL (74-106)
[2024-07-03 17:45] LABS: Bedside Glucose 133 mg/dL (74-106)
[2024-07-03] MEDS: Atorvastatin Calcium 40 MG Tablet PO (23:19)
[2024-07-04] VITALS (7 sets, daily range): BP systolic 105–142; BP diastolic 85–100; PULSE 54–96; RESP 16–18; TEMP 36.2–36.8; O2SAT 93–99; BMI 51.2
[2024-07-04 00:32] LABS: Bedside Glucose 105 mg/dL (74-106)
[2024-07-04] MEDS: Furosemide 500 MG in Empty Viaflex 50 mL 1 EACH CONT INF (02:02)
[2024-07-04 06:49] LABS: Anion Gap 12 (5-15); BUN 18 mg/dL (4-19); BUN/Creat Ratio 21.7 RATIO (10-20); Calcium,Total 8.9 mg/dL (7.6-11.0); Carbon Dioxide 29.9 mmol/L (21.0-32.0); Chloride 97 mmol/L (98-108); Creatinine, Serum 0.82 mg/dL (0.70-1.20); EST Glomerular Filtration Rate 104 (>60); Estimated Creatinine Clearance 151.32 ml/min (50-250); Glucose 113 mg/dL (70-99); Potassium 3.4 mmol/L (3.3-5.1); Sodium Level 140 mmol/L (133-145)
[2024-07-04] MEDS: levETIRAcetam 500 MG Tablet PO ×2 (08:46→21:01)
[2024-07-04] MEDS: Empagliflozin 10 MG Tablet PO (08:46)
[2024-07-04] MEDS: Aspirin 81 MG TAB.CHEW PO (08:47)
[2024-07-04] MEDS: Insulin Lispro 100 UNIT/ML INSULN.PEN 10 UNIT SC ×3 (08:47→17:09)
[2024-07-04] MEDS: APIXABAN 5 MG TABLET PO ×2 (08:47→21:02)
[2024-07-04] MEDS: Insulin Glargine-YFGN 100 UNIT/ML Pen 25 UNIT SC (08:48)
[2024-07-04 09:30] LABS: Bedside Glucose 136 mg/dL (74-106)
[2024-07-04] MEDS: dilTIAZem CD 120 MG Capsule PO ×2 (10:09→21:02)
[2024-07-04] MEDS: Furosemide 40 MG/4 ML Vial IV ×3 (10:16→23:49)
[2024-07-04] MEDS: 0.9% Saline Lock 10 ML Syringe IV ×2 (10:16→14:29)
--- NOTE | 2024-07-04 10:38 | PCM.PN.HOSP ---
Reason for Visit Reason for Visit: Diagnoses Unspecified diastolic (congestive) heart failure (07/02/24) Acute diastolic (congestive) heart failure (07/02/24) Hypoxemia (07/02/24) Subjective Subjective Saw patient at bedside this morning. Patient was sitting up comfortably in bedside chair, conversing normally, in no acute distress. Noted that he had very significant urine output yesterday and began to slow down somewhat overnight. Notes that his lower extremity swelling is much improved for admission. Denies any shortness of breath at rest. No other new concerns this morning. Objective Data Objective Data Vital Signs: Vital Signs Temp Pulse Resp BP Pulse Ox O2 Del Method O2 Flow Rate 97.7 F L 67 16 105/85 H 96 Nasal Cannula 3 07/04/24 08:45 07/04/24 08:45 07/04/24 08:45 07/04/24 08:45 07/04/24 08:45 07/04/24 09:00 07/04/24 09:00 Oxygen Flow Rate (L/min) 3 Oxygen Delivery Method Nasal Cannula Weight: 157.1 kg Body Mass Index (BMI) 51.2 Intake & Output: Intake and Output for Last 24 Hours 07/02/24 07/03/24 07/04/24 23:59 23:59 23:59 Intake Total 200 / 600 1180 / 1580 687.64 / 687.64 Output Total 450 / 2000 2650 / 3750 1999 Balance -250 / -1400 -1470 / -2170 -1312.36 / -1312.36 Lab / Micro Data 07/03/24 05:44 07/04/24 05:55 Labs: Laboratory Results - last 24 hr 07/03/24 11:20: POC Glucose 164 H 07/03/24 17:18: POC Glucose 133 H 07/03/24 23:18: POC Glucose 105 07/04/24 05:55: Sodium 140, Potassium 3.4, Chloride 97 L, Carbon Dioxide 29.9, Anion Gap 12, BUN 18, Creatinine 0.82, Estim Creat Clear Calc 151.32, Est GFR (MDRD) Non-Af 104, BUN/Creatinine Ratio 21.7 H, Glucose 113 H, Calcium 8.9 07/04/24 08:40: POC Glucose 136 H Micro: Microbiology 07/02/24 13:33 Mucosa - Nose SARS-CoV-2, Influenza & RSV (PCR) - Final Physical Exam Const alert, oriented x3 and no apparent distress Constitutional Narrative: Pleasant middle-age male, class III obesity, energy improved from admission, sitting back comfortably in bedside chair, conversing normally, in no acute distress. General Appearance: cooperative and comfortable HEENT normocephalic, head/scalp atraumatic, hearing grossly normal bilaterally, nasal mucous membranes and turbinates normal and moist oral mucous membranes Eyes PERRL, EOMs intact bilaterally and conjunctivae normal Neck full ROM Chest inspection of chest normal Resp normal respiratory effort and no use of accessory muscles Resp Narrative: Breathing comfortably on 3 L nasal cannula at rest. Mildly decreased breath sounds noted at bilateral lung bases with mild crackles in mid lung zones noted. Otherwise good air movement noted in upper to mid lungs with no wheezing noted. Improving. Cardio regular rate, regular rhythm, no murmurs and peripheral pulses 2+ throughout GI normal to inspection, nondistended, normoactive bowel sounds, soft to palpation, non-tender and non-distended Back/Spine normal ROM Extremity full ROM Extremity Narrative: Trace lower extremity edema noted, improved from admission. Skin no rashes or lesions noted Psych mental status grossly normal Assessment & Plan Assessment/Plan (1) Acute heart failure with preserved ejection fraction (HFpEF): (2) Hypoxia: PLAN: Plan Patient is a 54-year-old male who presented to [facility] ED on 07/02/2024 with worsening shortness of breath. 1. Acute HFpEF exacerbation with hypoxia ? Recent hospitalization for acute PE as noted below. Echo on 06/04 showed EF 50% with moderate concentric LV hypertrophy and stage I diastolic dysfunction along with mild biatrial dilatation. CTA chest on this admit showed no PE but did show bilateral pleural effusions right greater than left. BNP 2001 (underestimated given his morbid obesity). Treated with IV Lasix drip at 10 mg/h on admit with very good urine output. Transitioned to IV Lasix 40 mg every 8 hours on 07/04. Continue to monitor daily BMP and urine output. Hopeful to transition patient to p.o. Lasix tomorrow. Wean supplemental oxygen as able. Will plan to complete oxygen qualification testing tomorrow morning in preparation for possible discharge home. 2. Recent bilateral PE ? Recently hospitalized here from 06/03-06/04. CTA chest showed findings concerning for areas of pulmonary embolism in the right upper and left lower lobes. Lower extremity duplex ultrasound was negative for DVT. Weaned off supplemental oxygen then on discharge and started on Eliquis. Repeat CTA chest on this admission with no PE noted. Continue home Eliquis. 3. Paroxysmal A-fib/flutter ? Patient diagnosed with new onset A-fib/flutter during recent hospitalization in May. Was in normal sinus rhythm on admission but did flip into A-fib with heart rate in the 110s for a few hours, held back in normal sinus rhythm. Continue home Eliquis and diltiazem. Continue cardiac monitoring. Chronic medical conditions: ? Class III obesity: BMI 52 on admit. Complicates hospital course, care and prognosis. Encouraged weight loss. ? Type 2 diabetes mellitus: A1c 11.1% on admit. Continue home Lantus 25 units daily and Humalog 10 units with meals plus sliding scale, adjust as needed. ? Hyperlipidemia: Continue home statin. ? Seizure disorder: Continue home Keppra. DVT prophylaxis: Not indicated, on Eliquis CODE STATUS: Full code, verified Expected disposition: Home, 1 to 2 days Total clinical time spent by myself addressing the patient's medical issues, reviewing all the data, and collaborating with patient's care team: 35 minutes. Charges/Coding Visit Charges Inpatient E&M: 12240 Subs Hosp L2
--- NOTE | 2024-07-04 10:50 | CASEMGMT ---
Readmission note: Index: 06/03-06/03/24. Dx: BL PE's, Pulmonary Infarction, Hyperglycemia Current: 07/02/24. Dx: CHF Exacerbation From the index admission, the pt discharged home with OP therapy. The pt lives at home with his daughter and GS. The pt did not qualify for home oxygen during the index admission. The pt was prescribed diltiazem and apixaban. The pt re-presents to [facility] ER with SOB. The pt was admitted for CHF Exacerbation. AYUSH BYRNE to the pt room at this time. Pt states that he was caring for his DM accordingly. Pt states that he was able to get his new prescriptions and take his medications as ordered. Pt states that he was able to follow up with his PCP in between admissions. Pt states that his f/u appt with the clinical nursing instructor is not until July 16. Pt states that he was not ready to start OP PT yet but still has the outstanding order. Pt states that he still plans to follow up as an OP for a sleep study. Moving forward, the pt plans to DC home once medically ready. Per Dr. Cary, this could be as early as tomorrow. The patient currently requires additional oxygen and may qualify for home oxygen use. A verbal list of local in-network DME companies was provided to the pt at this time. Pt prefers [employer]. The pt denies skilled HHC needs and plans to initiate OP therapy once appropriate. Pt states that he is in the process of having his daughter get paid to be his caregiver at home. Pt inquires if CM can assist with this process. SW notified and will follow up on this request. The patient states appreciation and denies further concerns at this time. Tentative Plan: Home with family and potential new oxygen set up, OP therapy, and follow-up as an OP for a sleep study. Pt states that he feels safe with this plan and denies further needs now. Ladarius COLON RN, CM
[2024-07-04 10:59] LABS: Magnesium 2.1 mg/dL (1.5-2.2)
[2024-07-04 12:32] LABS: Bedside Glucose 162 mg/dL (74-106)
[2024-07-04] MEDS: Insulin Lispro 100 UNIT/ML INSULN.PEN SC (12:49)
[2024-07-04 17:30] LABS: Bedside Glucose 148 mg/dL (74-106)
[2024-07-04] MEDS: Atorvastatin Calcium 40 MG Tablet PO (21:02)
[2024-07-04 21:25] LABS: Bedside Glucose 121 mg/dL (74-106)
[2024-07-05] VITALS (8 sets, daily range): BP systolic 131–139; BP diastolic 88; PULSE 90–101; RESP 16–19; TEMP 36.7–36.8; O2SAT 93–97; BMI 51.0
[2024-07-05 06:21] LABS: Hematocrit 45.2 % (40-54); Hemoglobin 14.7 g/dL (13.0-16.5); Mean Corp Hgb Conc 32.5 g/dL (32-36); Mean Corpuscular Hgb 26.5 pg (27.0-32.0); Mean Corpuscular Volume 81.6 fL (80-94); Mean Platelet Vol. 11.8 fl (6.2-12.0); Platelet Count 203 K/mm3 (150-450); RBC Distribution Width CV 13.7 % (11.6-14.6); RBC Distribution Width SD 39.9 fl (35.1-43.9); Red Blood Count 5.54 M/mm3 (4.6-6.2); White Blood Count 9.6 K/mm3 (4.4-11.0)
[2024-07-05 06:47] LABS: Anion Gap 14 (5-15); BUN 22 mg/dL (4-19); BUN/Creat Ratio 25.6 RATIO (10-20); Calcium,Total 8.8 mg/dL (7.6-11.0); Carbon Dioxide 27.9 mmol/L (21.0-32.0); Chloride 95 mmol/L (98-108); Creatinine, Serum 0.85 mg/dL (0.70-1.20); EST Glomerular Filtration Rate 103 (>60); Estimated Creatinine Clearance 145.64 ml/min (50-250); Glucose 109 mg/dL (70-99); Potassium 3.3 mmol/L (3.3-5.1); Sodium Level 137 mmol/L (133-145)
[2024-07-05] MEDS: levETIRAcetam 500 MG Tablet PO (08:32)
[2024-07-05] MEDS: Furosemide 40 MG Tablet PO (08:32)
[2024-07-05] MEDS: Empagliflozin 10 MG Tablet PO (08:33)
[2024-07-05] MEDS: APIXABAN 5 MG TABLET PO (08:33)
[2024-07-05] MEDS: dilTIAZem CD 120 MG Capsule PO (08:34)
[2024-07-05] MEDS: Aspirin 81 MG TAB.CHEW PO (08:34)
[2024-07-05] MEDS: Insulin Lispro 100 UNIT/ML INSULN.PEN 10 UNIT SC ×2 (08:35→12:37)
[2024-07-05] MEDS: Insulin Glargine-YFGN 100 UNIT/ML Pen 25 UNIT SC (08:35)
[2024-07-05 08:40] LABS: Bedside Glucose 114 mg/dL (74-106)
--- NOTE | 2024-07-05 11:52 | DCINST_ITS ---
Discharge Instructions Diet Discharge Diet: 8 Cup Fluid Restriction, 4000 mg Sodium Diet and Carb Control Diet DC O2, CPAP, BIPAP needs Home O2 Discharge instructions: No Dressing / Incision Discharge Activity: No Restrictions Follow Up Care Test Results: Test results from this visit will be discussed in further detail at your follow- up appointment, if applicable. Discharge Plan Admission Admit Date/Time: 07/02/24 16:06 Primary Reason for Your Visit: Shortness of breath Attending Provider: Lawrence Cary Primary Care Provider: Curtis Park Consulting Providers: Des Hamm Discharge Orders/Prescriptions Prescriptions: New furosemide 40 mg Tablet 40 mg PO DAILY 30 Days Qty: 30 2RF Continued levetiracetam 500 mg tablet 500 mg PO BID Jardiance 10 mg tablet 10 mg PO DAILY apixaban 5 mg tablet 5 mg PO BID Qty: 134 0RF aspirin 81 mg tablet,chewable 1 tab PO DAILY atorvastatin 40 mg tablet 40 mg PO QHS diltiazem HCl 120 mg Capsule,Extended Release 24hr 120 mg PO Q12 120 Days Qty: 240 0RF insulin lispro 100 unit/mL insulin pen 10 unit subcut TID Qty: 15 0RF Protocol: 6. Sliding Scale Insulin Custom Condition: mg/dl range Dose/Route: Number of Units Protocol Text: Custom Sliding Scale Rx Instructions: patient on sliding scale with meals subcutaneously three times a day; insulin glargine [Lantus Solostar U-100 Insulin] 100 unit/mL (3 mL) insulin pen 25 unit subcut DAILY Qty: 15 0RF Referrals / Follow Up: Steven Saba MD [Med Staff - Active Staff] - Curtis Park MD [Primary Care Provider] - Disposition Disposition (needs filled in before D/C Order can be placed): Home, Self Care
--- NOTE | 2024-07-05 11:52 | DS.PCM_ITS ---
Providers Date of Admission: 07/02/24 Primary Care Physician: Dr. Curtis Park MD Reason For Visit: CHF EXACERBATION Diagnosis Discharge Diagnosis (1) Acute heart failure with preserved ejection fraction (HFpEF): Status: Acute Code(s): I50.31 - Acute diastolic (congestive) heart failure (2) Hypoxia: Status: Acute Code(s): R09.02 - Hypoxemia Plan Patient is a 54-year-old male who presented to [facility] ED on 07/02/2024 with worsening shortness of breath. 1. Acute HFpEF exacerbation with hypoxia ? Recent hospitalization for acute PE as noted below. Echo on 06/04 showed EF 50% with moderate concentric LV hypertrophy and stage I diastolic dysfunction along with mild biatrial dilatation. CTA chest on this admit showed no PE but did show bilateral pleural effusions right greater than left. BNP 2001 (underestimated given his morbid obesity). Treated with IV Lasix drip at 10 mg/h on admit with very good urine output. Transitioned to IV Lasix 40 mg every 8 hours on 07/04. Continue to monitor daily BMP and urine output. Hopeful to transition patient to p.o. Lasix tomorrow. Wean supplemental oxygen as able. Will plan to complete oxygen qualification testing tomorrow morning in preparation for possible discharge home. 2. Recent bilateral PE ? Recently hospitalized here from 06/03-06/04. CTA chest showed findings concerning for areas of pulmonary embolism in the right upper and left lower lobes. Lower extremity duplex ultrasound was negative for DVT. Weaned off supplemental oxygen then on discharge and started on Eliquis. Repeat CTA chest on this admission with no PE noted. Continue home Eliquis. 3. Paroxysmal A-fib/flutter ? Patient diagnosed with new onset A-fib/flutter during recent hospitalization in May. Was in normal sinus rhythm on admission but did flip into A-fib with heart rate in the 110s for a few hours, held back in normal sinus rhythm. Continue home Eliquis and diltiazem. Continue cardiac monitoring. Chronic medical conditions: ? Class III obesity: BMI 52 on admit. Complicates hospital course, care and prognosis. Encouraged weight loss. ? Type 2 diabetes mellitus: A1c 11.1% on admit. Continue home Lantus 25 units daily and Humalog 10 units with meals plus sliding scale, adjust as needed. ? Hyperlipidemia: Continue home statin. ? Seizure disorder: Continue home Keppra. DVT prophylaxis: Not indicated, on Eliquis CODE STATUS: Full code, verified Expected disposition: Home, 1 to 2 days Total clinical time spent by myself addressing the patient's medical issues, reviewing all the data, and collaborating with patient's care team: 35 minutes. Medications at Discharge Home Medications levetiracetam 500 mg tablet 500 mg PO BID keppra 11/01/23 aspirin 81 mg chewable tablet 1 tab PO DAILY heart health 06/03/24 atorvastatin 40 mg tablet 40 mg PO QHS choleterol 06/03/24 apixaban 5 mg tablet 5 mg PO BID #134 tabs 06/04/24 diltiazem HCl 120 mg capsule,extended release 24 hr 120 mg PO Q12 120 days #240 caps 06/04/24 insulin glargine 100 unit/mL (3 mL) subcutaneous pen (Lantus Solostar U-100 Insulin) 25 unit (0.25 mL) subcut DAILY diabetes #15 mL 06/04/24 insulin lispro 100 unit/mL subcutaneous pen 10 unit subcut TID diabetes #15 mL 06/04/24 empagliflozin 10 mg tablet (Jardiance) 10 mg PO DAILY 07/02/24 Weight / BMI Weight Weight: 156.5 kg Body Mass Index (BMI) 51.0 ABG / Lab / Microbiology Data 07/05/24 05:35 07/05/24 05:35 Laboratory: Laboratory Results - last 24 hr 07/04/24 12:14: POC Glucose 162 H 07/04/24 17:08: POC Glucose 148 H 07/04/24 20:58: POC Glucose 121 H 07/05/24 05:35: WBC 9.6, RBC 5.54, Hgb 14.7, Hct 45.2, MCV 81.6, MCH 26.5 L, MCHC 32.5, RDW Std Deviation 39.9, RDW Coeff of Masha 13.7, Plt Count 203, MPV 11.8, Sodium 137, Potassium 3.3, Chloride 95 L, Carbon Dioxide 27.9, Anion Gap 14, BUN 22 H, Creatinine 0.85, Estim Creat Clear Calc 145.64, Est GFR (MDRD) Non-Af 103, BUN/Creatinine Ratio 25.6 H, Glucose 109 H, Calcium 8.8 07/05/24 08:04: POC Glucose 114 H Microbiology: Microbiology 07/02/24 13:33 Mucosa - Nose SARS-CoV-2, Influenza & RSV (PCR) - Final Meaningful Use Info Ischemic Stroke Statin Dosing Therapy Reference: STATIN DOSE THERAPY REFERENCE: * Patients > 75 years receive moderate or high dose statin therapy. * Patients 75 years or YOUNGER should receive HIGH intensity statin dose unless contraindicated. You will be required to document reason for non-treatment if statin daily dose does not meet guidelines. HIGH DOSE STATIN THERAPY DAILY Atorvastatin > than or = to 40 mg Rosuvastatin > than or = to 20 mg Amlodipine + Atorvastatin > than or = to 2.5/40 mg Ezetimibe + Simvastatin 10/80 mg Simvastatin 80mg Discharge Plan Admission Admit Date/Time: 07/02/24 16:06 Attending Provider: Lawrence Cary Primary Care Provider: Curtis Park Consulting Providers: Des Hamm Discharge Orders/Prescriptions Prescriptions: No Action levetiracetam 500 mg tablet 500 mg PO BID Jardiance 10 mg tablet 10 mg PO DAILY aspirin 81 mg tablet,chewable 1 tab PO DAILY atorvastatin 40 mg tablet 40 mg PO QHS diltiazem HCl 120 mg Capsule,Extended Release 24hr 120 mg PO Q12 120 Days Qty: 240 0RF apixaban 5 mg tablet 5 mg PO BID Qty: 134 0RF Rx Instructions: 10 mg twice daily for 7 days and subsequently 5 mg twice daily insulin lispro 100 unit/mL insulin pen 10 unit subcut TID Qty: 15 0RF Protocol: 6. Sliding Scale Insulin Custom Condition: mg/dl range Dose/Route: Number of Units Protocol Text: Custom Sliding Scale Rx Instructions: patient on sliding scale with meals subcutaneously three times a day; insulin glargine [Lantus Solostar U-100 Insulin] 100 unit/mL (3 mL) insulin pen 25 unit subcut DAILY Qty: 15 0RF Referrals / Follow Up: Curtis Park MD [Primary Care Provider] -
--- NOTE | 2024-07-05 11:52 | PCM.DC.SUM ---
Providers Date of Admission: 07/02/24 Date of Discharge: 07/05/24 Primary Care Physician: Dr. Curtis Park MD Reason For Visit: CHF EXACERBATION Diagnosis Discharge Diagnosis (1) Acute heart failure with preserved ejection fraction (HFpEF): Status: Acute Code(s): I50.31 - Acute diastolic (congestive) heart failure (2) Hypoxia: Status: Acute Code(s): R09.02 - Hypoxemia Medications at Discharge Home Medications levetiracetam 500 mg tablet 500 mg PO BID keppra 11/01/23 aspirin 81 mg chewable tablet 1 tab PO DAILY heart health 06/03/24 atorvastatin 40 mg tablet 40 mg PO QHS choleterol 06/03/24 diltiazem HCl 120 mg capsule,extended release 24 hr 120 mg PO Q12 120 days #240 caps 06/04/24 insulin glargine 100 unit/mL (3 mL) subcutaneous pen (Lantus Solostar U-100 Insulin) 25 unit (0.25 mL) subcut DAILY diabetes #15 mL 06/04/24 insulin lispro 100 unit/mL subcutaneous pen 10 unit subcut TID diabetes #15 mL 06/04/24 empagliflozin 10 mg tablet (Jardiance) 10 mg PO DAILY 07/02/24 apixaban 5 mg tablet 5 mg PO BID #134 tabs 07/05/24 furosemide 40 mg tablet 40 mg PO DAILY 30 days #30 tabs 07/05/24 Hospital Course Operations None Procedures - (CTA chest) Summary of Care Provided Minutes Spent on Discharge: 35 Hospital Course: Patient is a 54-year-old male who presented to [facility] ED on 07/02/2024 with worsening shortness of breath. Hospital course as noted below. Patient discharged home in stable condition on 07/05. 1. Acute HFpEF exacerbation with hypoxia, improved ? Recent hospitalization for acute PE as noted below. Echo on 06/04 showed EF 50% with moderate concentric LV hypertrophy and stage I diastolic dysfunction along with mild biatrial dilatation. CTA chest on this admit showed no PE but did show bilateral pleural effusions right greater than left. BNP 2001 (underestimated given his morbid obesity). Treated with IV Lasix drip at 10 mg/h on admit with very good urine output. Transitioned to IV Lasix 40 mg every 8 hours on 07/04. Completed O2 testing on day of discharge and did not require any supplemental oxygen. Will discharge on p.o. Lasix 40 mg daily. Recommend close outpatient follow-up with cardiology. 2. Recent bilateral PE ? Recently hospitalized here from 06/03-06/04. CTA chest showed findings concerning for areas of pulmonary embolism in the right upper and left lower lobes. Lower extremity duplex ultrasound was negative for DVT. Weaned off supplemental oxygen then on discharge and started on Eliquis. Repeat CTA chest on this admission with no PE noted. Continue home Eliquis. 3. Paroxysmal A-fib/flutter ? Patient diagnosed with new onset A-fib/flutter during recent hospitalization in May. Was in normal sinus rhythm on admission but did flip into A-fib with heart rate in the 110s for a few hours, held back in normal sinus rhythm. Continue home Eliquis and diltiazem. Chronic medical conditions: ? Class III obesity: BMI 52 on admit. Complicated hospital course, care and prognosis. Encouraged weight loss. ? Type 2 diabetes mellitus: A1c 11.1% on admit. Continue home Lantus 25 units daily and Humalog 10 units with meals on discharge. ? Hyperlipidemia: Continue home statin. ? Seizure disorder: Continue home Keppra. Total clinical time spent by myself addressing the patient's medical issues, reviewing all the data, and collaborating with patient's care team: 35 minutes. Physical Exam Const alert, oriented x3 and no apparent distress Constitutional Narrative: Pleasant middle-age male, class III obesity, energy improved from admission, sitting back comfortably in bedside chair, conversing normally, in no acute distress. General Appearance: cooperative and comfortable HEENT normocephalic, head/scalp atraumatic, hearing grossly normal bilaterally, nasal mucous membranes and turbinates normal and moist oral mucous membranes Eyes PERRL, EOMs intact bilaterally and conjunctivae normal Neck full ROM Chest inspection of chest normal Resp normal respiratory effort and no use of accessory muscles Resp Narrative: Breathing comfortably on room air at rest. Mildly decreased breath sounds noted at bilateral lung bases but no crackles or wheezing noted. Improved from admission. Cardio regular rate, regular rhythm, no murmurs and peripheral pulses 2+ throughout GI normal to inspection, nondistended, normoactive bowel sounds, soft to palpation, non-tender and non-distended Back/Spine normal ROM Extremity full ROM Extremity Narrative: Trace lower extremity edema noted, improved from admission. Skin no rashes or lesions noted Psych mental status grossly normal Weight / BMI Weight Weight: 156.5 kg Body Mass Index (BMI) 51.0 ABG / Lab / Microbiology Data 07/05/24 05:35 07/05/24 05:35 Laboratory: Laboratory Results - last 24 hr 07/04/24 17:08: POC Glucose 148 H 07/04/24 20:58: POC Glucose 121 H 07/05/24 05:35: WBC 9.6, RBC 5.54, Hgb 14.7, Hct 45.2, MCV 81.6, MCH 26.5 L, MCHC 32.5, RDW Std Deviation 39.9, RDW Coeff of Masha 13.7, Plt Count 203, MPV 11.8, Sodium 137, Potassium 3.3, Chloride 95 L, Carbon Dioxide 27.9, Anion Gap 14, BUN 22 H, Creatinine 0.85, Estim Creat Clear Calc 145.64, Est GFR (MDRD) Non-Af 103, BUN/Creatinine Ratio 25.6 H, Glucose 109 H, Calcium 8.8 07/05/24 08:04: POC Glucose 114 H 07/05/24 11:53: POC Glucose 172 H Microbiology: Microbiology 07/02/24 13:33 Mucosa - Nose SARS-CoV-2, Influenza & RSV (PCR) - Final D/C Instructions DC O2, CPAP, BIPAP Needs Home O2 Discharge instructions: No Meaningful Use Info Meaningful Use Meaningful Use Diagnoses (Choose all that apply): CHF CHF DIANA/ARB ordered at discharge?: No Reason DIANA/ARB not ordered?: Normal EF Documented LVEF (%): 55 Ischemic Stroke Statin Dosing Therapy Reference: STATIN DOSE THERAPY REFERENCE: * Patients > 75 years receive moderate or high dose statin therapy. * Patients 75 years or YOUNGER should receive HIGH intensity statin dose unless contraindicated. You will be required to document reason for non-treatment if statin daily dose does not meet guidelines. HIGH DOSE STATIN THERAPY DAILY Atorvastatin > than or = to 40 mg Rosuvastatin > than or = to 20 mg Amlodipine + Atorvastatin > than or = to 2.5/40 mg Ezetimibe + Simvastatin 10/80 mg Simvastatin 80mg Discharge Plan Admission Admit Date/Time: 07/02/24 16:06 Primary Reason for Your Visit: Shortness of breath Attending Provider: Lawrence Cary Primary Care Provider: Curtis Park Consulting Providers: Des Hamm Discharge Orders/Prescriptions Prescriptions: New furosemide 40 mg Tablet 40 mg PO DAILY 30 Days Qty: 30 2RF Continued levetiracetam 500 mg tablet 500 mg PO BID Jardiance 10 mg tablet 10 mg PO DAILY apixaban 5 mg tablet 5 mg PO BID Qty: 134 0RF aspirin 81 mg tablet,chewable 1 tab PO DAILY atorvastatin 40 mg tablet 40 mg PO QHS diltiazem HCl 120 mg Capsule,Extended Release 24hr 120 mg PO Q12 120 Days Qty: 240 0RF insulin lispro 100 unit/mL insulin pen 10 unit subcut TID Qty: 15 0RF Protocol: 6. Sliding Scale Insulin Custom Condition: mg/dl range Dose/Route: Number of Units Protocol Text: Custom Sliding Scale Rx Instructions: patient on sliding scale with meals subcutaneously three times a day; insulin glargine [Lantus Solostar U-100 Insulin] 100 unit/mL (3 mL) insulin pen 25 unit subcut DAILY Qty: 15 0RF Referrals / Follow Up: Steven Saba MD [Med Staff - Active Staff] - 07/25/24 9:30 am Curtis Park MD [Primary Care Provider] - 07/31/24 1:30 pm Disposition Disposition (needs filled in before D/C Order can be placed): Home, Self Care Charges/Coding Visit Charges Inpatient E&M: 14588 Disch Hosp >30min
--- NOTE | 2024-07-05 12:05 | CASEMGMT ---
Per the insurance verifier, pt does not qualify for home oxygen. SW plans to f/u with the pt regarding the pt's daughter becoming the pt's caregiver and getting paid. Pt plans to follow up as an OP for a sleep study and denies further needs or concerns.
[2024-07-05 12:10] LABS: Bedside Glucose 172 mg/dL (74-106)
--- NOTE | 2024-07-05 12:23 | CASEMGMT ---
LIONEL was informed by RN CATY that patient was inquiring about how to go about getting a family member to be a paid caregiver. LIONEL provided patient with a booklet from [facility] that offered guidance on this process. Patient thanked LIONEL. Brenna SWANSON
[2024-07-05] MEDS: Insulin Lispro 100 UNIT/ML INSULN.PEN SC (12:38)
== END 2024-07-05 13:08 | disposition home or self-care (01) | DRG 194 ==
LOC: ED 14:15 → PCU 16:54
PROVIDERS: Emergency Provider Surgery; Visit Provider Hospitalist
DX: I11.0 Hypertensive heart disease with heart failure (principal); I26.99 Other pulmonary embolism without acute cor pulmonale; J90 Pleural effusion, not elsewhere classified; T82.515A Breakdown (mechanical) of umbrella device, initial encounter; G40.909 Epilepsy, unspecified, not intractable, without status epilepticus; I48.92 Unspecified atrial flutter; I48.0 Paroxysmal atrial fibrillation; I42.0 Dilated cardiomyopathy; Z68.43 Body mass index [BMI] 50.0-59.9, adult; E11.65 Type 2 diabetes mellitus with hyperglycemia; I50.33 Acute on chronic diastolic (congestive) heart failure; E78.00 Pure hypercholesterolemia, unspecified; Z79.4 Long term (current) use of insulin; E66.01 Morbid (severe) obesity due to excess calories; Z79.01 Long term (current) use of anticoagulants; E66.813 Obesity, class 3; R09.02 Hypoxemia; Z79.84 Long term (current) use of oral hypoglycemic drugs; Z79.82 Long term (current) use of aspirin; Z79.02 Long term (current) use of antithrombotics/antiplatelets; Z79.899 Other long term (current) drug therapy; Y71.2 Prosthetic and other implants, materials and accessory cardiovascular devices associated with adverse incidents
CPT/HCPCS: 36415; 71275; 80048; 82962; 83036; 83735; 83880; 84100; 84484; 85025; 85027; 85610; 85730; 87631; 93005; 97802; 99252; 99284; Q9967; A4216; G0463; J1938

== ENCOUNTER 2024-07-24 07:45 | Inpatient (IN) | payer MEDICAID, SELFPAY ==
[2024-07-24] VITALS (9 sets, daily range): BP systolic 112–178; BP diastolic 66–92; PULSE 64–79; RESP 14–20; TEMP 36.1–37.1; O2SAT 94–99; BMI 50.8
--- NOTE | 2024-07-24 08:35 | ED.VIS.GI ---
HPI HPI - GI History of Present Illness Chief Complaint: Abd Pain Abdominal Pain/Flank Pain Onset: Yesterday Context: Sudden Onset Timing: Continuous Quality: Dull and - (Gassy) Location: Epigastric, RUQ and LUQ Worsened by: Nothing Relieved by: - (Vomiting) Nausea/Vomiting/Emesis GI Symptom: Positive for Nausea and Vomiting Quality: Positive for Nonbilious; Negative for Blood streaks, Coffee ground or Hematemesis Diarrhea/Melena/Hematochezia GI Symptom: Positive for Diarrhea; Negative for Melena or Hematochezia Stool Quality: Positive for Watery Associated Symptoms Associated Symptoms: Negative for Dysuria, Frequency or Hematuria Narrative Narrative: Patient presents with abdominal pain and has been constant for the past 2 days. Patient states it began rather suddenly. Patient states it has been constant. Patient describes it as a dull pain. Patient states he feels gassy. Patient states it is mainly over the upper abdomen. Patient states he feels better after vomiting. Patient denies any hematemesis or coffee-ground emesis. Patient admits to some watery diarrhea. Patient denies any melena or hematochezia. Patient denies any dysuria, frequency, or hematuria. Patient admits to some subjective chills but denies any fevers. [facility] Medical History (Updated 07/24/24 @ 11:[address] Des Barillas, DO) (HFpEF) heart failure with preserved ejection fraction Sleep apnea Seizures Stroke/cerebrovascular accident Hypertension High cholesterol Diabetes Home Medications ?Medication ?Instructions ?Recorded ?Last Taken ?Type levetiracetam 500 mg tablet 500 mg PO BID keppra 11/01/23 07/23/24 History aspirin 81 mg chewable tablet 1 tab PO DAILY heart health 06/03/24 07/23/24 History insulin lispro 100 unit/mL 10 unit subcut TID diabetes #15 mL 06/04/24 07/23/24 Rx subcutaneous pen apixaban 5 mg tablet 5 mg PO BID #134 tabs 07/05/24 07/23/24 Rx furosemide 40 mg tablet 40 mg PO DAILY 30 days #30 tabs 07/05/24 07/23/24 Rx diltiazem HCl 120 mg 120 mg PO Q12H 07/24/24 07/23/24 History capsule,extended release 24 hr insulin glargine 100 unit/mL (3 30 unit subcut DAILY diabetes 07/24/24 07/23/24 History mL) subcutaneous pen (Lantus Solostar U-100 Insulin) nifedipine 30 mg tablet,extended 30 mg PO DAILY 07/24/24 07/23/24 History release Allergy/AdvReac Type Severity Reaction Status Date / Time No Known Allergies Allergy Verified 07/24/24 07:46 Family History (Updated 07/02/24 @ 16:[address] Des Hamm DO) Other Heart disease Surgical History (Updated 07/24/24 @ 08:[address] Des Barillas DO) Hx of arthroscopic knee surgery Hx of neck surgery Social History (Updated 07/24/24 @ 08:[address] Des Barillas DO) household members: spouse and family housing: house Smoking Status: Never smoker Smokeless tobacco user: snuff ROS ROS ED Constitutional Constitutional ED: Reports chills; Denies fever(s) Eyes Eyes: Denies blurry vision or change in vision ENT ENT ED: Denies rhinorrhea or sore throat Cardiovascular Cardiovascular: Denies chest pain or palpitations Respiratory/Chest Respiratory/Chest: Reports cough; Denies dyspnea Gastrointestinal Gastrointestinal: Reports abdominal pain, diarrhea, nausea and vomiting; Denies melena Genitourinary Genitourinary ED: Denies dysuria or hematuria Musculoskeletal Musculoskeletal: Denies back pain or neck pain Integumentary Denies abscess or rash Neurologic Neurologic: Denies headache(s) or weakness Allergic/Immunologic Allergic/Immunologic ED: Denies mouth swelling or urticaria EXAM Physical Exam Const Vital Signs: 07/24/24 07:45 07/24/24 09:45 Temperature 97 F L Temperature Source Temporal Pulse Rate 79 74 Respiratory Rate 14 16 Blood Pressure 131/78 H 135/88 H Blood Pressure Mean 95 103 Pulse Ox 98 99 Oxygen Delivery Method Room Air Positive well nourished and well developed Constitutional Narrative: BMI is 50.8 General Appearance ED: well developed and NAD HEENT Reports moist mucous membranes Neck supple and no JVD Resp normal respiratory effort and clear to auscultation bilaterally Cardio regular rate and regular rhythm GI non-distended Palpation: soft and tender epigastric, LUQ and RUQ; Negative for guarding or rebound tenderness present Neuro CN's II-XII intact bilaterally, moves all extremities and no sensory deficits noted Sensorium / Orientation: alert Motor Exam: strength 5/5 throughout Psych mental status grossly normal MDM MDM MDM Narrative Medical decision making narrative: Differential diagnosis includes gastroenteritis, bowel obstruction, perforation, electrolyte abnormality, dehydration, pancreatitis, cholecystitis, cholelithiasis, gastritis, and viral illness. CBC will be obtained to assess for leukocytosis and anemia. Comprehensive metabolic profile will be obtained to assess for hepatic function, renal function, and electrolyte abnormality. Lipase will be obtained to assess for pancreatitis. Urinalysis will be obtained to assess for urinary tract infection and hematuria. CT scan of the abdomen and pelvis will be obtained to assess for bowel obstruction, pancreatitis, and cholecystitis. History & Record Review Additional record(s) reviewed:: Prior inpatient record, Prior ED visit and Prior labs Lab Data Attestation: I reviewed the patient's lab results. Lab results narrative: CBC was reviewed and was within normal limits. Comprehensive metabolic profile was reviewed. Glucose was slightly elevated 209. The remainder is within normal limits. Lipase was reviewed and was normal at 18. Labs: Laboratory Results - last 24 hr 07/24/24 09:20 WBC 10.4 RBC 6.17 Hgb 16.0 Hct 49.6 MCV 80.4 MCH 25.9 L MCHC 32.3 RDW Std Deviation 41.0 RDW Coeff of Masha 14.1 Plt Count 178 MPV 11.1 Immature Gran % (Auto) 0.200 Neut % (Auto) 86.9 H Lymph % (Auto) 5.6 L Moore % (Auto) 6.2 Eos % (Auto) 0.7 Baso % (Auto) 0.4 Absolute Neuts (auto) 9.0 H Absolute Lymphs (auto) 0.58 L Nucleated RBC % 0 Sodium 140 Potassium 3.6 Chloride 103 Carbon Dioxide 24.8 Anion Gap 12 BUN 17 Creatinine 0.81 Estim Creat Clear Calc 154.59 Est GFR (MDRD) Non-Af 105 BUN/Creatinine Ratio 21.6 H Glucose 209 H Calcium 9.6 Total Bilirubin 0.75 AST 19 ALT 15 Alkaline Phosphatase 97 Total Protein 7.8 Albumin 3.8 Globulin 4.0 Albumin/Globulin Ratio 0.9 Lipase 18 Radiography Diagnostic Testing: Clinical Impression(s) from Imaging Studies Abdomen/Pelvis CT 07/24/24 08:55 IMPRESSION: Fluid-filled slightly dilated small bowel loops with fluid in the colon. This may represent either early or incomplete small bowel obstruction. Ileus may also have a similar appearance. Free intraperitoneal air. Small gallstones are layered in the gallbladder lumen. Red Alert: Free air The critical information above was relayed directly by me by telephone to Des Barillas on 07/24/2024 at 10:38 am with readback verification. Reading Location: [place] [id number] CT scan of the abdomen and pelvis was obtained. There is either early or incomplete small bowel obstruction. There is free intraperitoneal air noted. This was interpreted by the radiologist and was also independently reviewed by myself. Management Discussion w/another healthcare provider: Rn Child and Radiologist Treatment and Re-Evaluation :: Patient was given morphine and Zofran. Patient was given a dose of Zosyn. Patient was advised of his findings. Case was discussed with Dr. Ricardo, general surgery on-call. He will be in to evaluate the patient. He recommended placing an NG tube. He also recommended repeating the CT scan with oral contrast. He noted that the patient was seen here last September and had similar findings on the CT scan at that time. Patient was transferred to [facility] at that time. Patient had no surgery at that time. He will admit the patient to his service. Discharge Plan Dx/Rx/DC Orders Clinical Impression: Small bowel obstruction, Type 2 diabetes mellitus with hyperglycemia, Free intraperitoneal air, Hypertension Disposition Disposition: Acute Care Hospital [facility] Discharge Date/Time: 07/24/24 14:27
--- NOTE | 2024-07-24 08:55 | CT_ITS ---
PROCEDURE: ABDOMEN/PELVIS W IV CONT ONLY 07/24/2024 REASON FOR EXAM: ABDOMINAL PAIN Nausea and vomiting. TECHNIQUE: ABDOMEN/PELVIS W IV CONT ONLY. Coronal and Sagittal reconstruction series were provided. ORAL CONTRAST TYPE: None. CONTRAST: Isovue-300 VOLUME: 100 mL One or more dose reduction techniques were used (e.g., Automated exposure control, adjustment of the mA and/or kV according to patient size, use of iterative reconstruction technique. RADIATION DOSE SUMMARY: CTDlvol: 15.5 mGy DLP: 1422.95 mGycm COMPARISON: Prior study dated September 07, 2023. FINDINGS: Lung bases: Mild dependent atelectasis. Calcified granuloma in the medial right lower lobe. Coronary artery calcification. There is evidence of free intra peritoneal air. Liver: Normal size. No mass. Gallbladder: Multiple layering gallstones. Spleen: Normal size. Pancreas: Diffuse fatty atrophy. Adrenals: Findings suggestive of a 1.4 cm adenoma in the crux of the left adrenal gland. Kidneys: Normal renal sizes. No hydronephrosis. Bladder: Unremarkable Bowel: Sigmoid diverticulosis. Dilated small bowel loops which are fluid-filled down to the distal portion. Fluid is also seen in the colon. Findings suggestive of either a partial or early small-bowel obstruction or possible ileus. Appendix: The appendix is not identified. There is no inflammatory process identified in the right lower quadrant to suggest appendicitis. Lymph nodes: No suspicious lymph node enlargement. Vasculature: The abdominal aorta and IVC are normal. Peritoneum / Retroperitoneum: Free intraperitoneal air. Small amount of free fluid is seen in the pelvis. Bones: Degenerative changes of the spine. CT/Abdomen/Pelvis W IV Cont ONLY IMPRESSION: Fluid-filled slightly dilated small bowel loops with fluid in the colon. This may represent either early or incomplete small bowel obstruction. Ileus may also have a similar appearance. Free intraperitoneal air. Small gallstones are layered in the gallbladder lumen. Red Alert: Free air The critical information above was relayed directly by me by telephone to Des Morales on 07/24/2024 at 10:38 am with readback verification. Reading Location: [place] [address]
[2024-07-24 09:29] LABS: Absolute Lymphocyte Count 0.58 X10^3/uL (0.83-4.51); Basophil# 0.04 X10^3/uL; Basophil% 0.4 % (0-1); Eosinophil# 0.07 X10^3/uL; Eosinophils% 0.7 % (0-5); Hematocrit 49.6 % (40-54); Lymphocyte # 0.58 X10^3/ul (0.83-4.51); Lymphocyte % 5.6 % (19-41); Mean Corp Hgb Conc 32.3 g/dL (32-36); Mean Corpuscular Hgb 25.9 pg (27.0-32.0); Mean Corpuscular Volume 80.4 fL (80-94); Mean Platelet Vol. 11.1 fl (6.2-12.0); Monocyte# 0.64 X10^3/uL; Monocyte% 6.2 % (0-10); NRBC Flagged by Analyzer 0 % (0-5); Neutrophil % 86.9 % (47-70); POSITIVE DIFFERENTIAL YES; Platelet Count 178 K/mm3 (150-450); RBC Distribution Width CV 14.1 % (11.6-14.6); Red Blood Count 6.17 M/mm3 (4.6-6.2); White Blood Count 10.4 K/mm3 (4.4-11.0)
[2024-07-24 09:50] LABS: ALB/GLOB Ratio 0.9 RATIO (0.9-2.4); AST(SGOT) 19 U/L (<=37); Alanine Aminotransfer ALT/SGPT 15 U/L (<=46); Albumin, Serum 3.8 g/dL (3.5-5.0); Alkaline Phosphatase 97 U/L (40-129); Anion Gap 12 (5-15); BUN 17 mg/dL (4-19); BUN/Creat Ratio 21.6 RATIO (10-20); Calcium,Total 9.6 mg/dL (7.6-11.0); Carbon Dioxide 24.8 mmol/L (21.0-32.0); Chloride 103 mmol/L (98-108); Creatinine, Serum 0.81 mg/dL (0.70-1.20); EST Glomerular Filtration Rate 105 (>60); Estimated Creatinine Clearance 154.59 ml/min (50-250); Glucose 209 mg/dL (70-99); Lipase 18 U/L (13-75); Potassium 3.6 mmol/L (3.3-5.1); Protein, Total 7.8 g/dL (5.9-8.4); Sodium Level 140 mmol/L (133-145); Total Bilirubin 0.75 mg/dL (0.00-1.30)
--- NOTE | 2024-07-24 11:30 | CT_ITS ---
PROCEDURE: ABDOMEN/PEL W ORAL CONT ONLY 07/24/2024 REASON FOR EXAM: ABDOMINAL PAIN TECHNIQUE: ABDOMEN/PEL W ORAL CONT ONLY Noncontrast technique limits evaluation of the abdominal and pelvic viscera. Coronal and Sagittal reconstruction series were provided. One or more dose reduction techniques were used (e.g., Automated exposure control, adjustment of the mA and/or kV according to patient size, use of iterative reconstruction technique). Dose report: CTDI L volume: 23.97. DLP: 1419.55 mGy. ORAL CONTRAST TYPE: Gastrografin. COMPARISON: Comparison is made with prior study done earlier in the day. FINDINGS: Free intraperitoneal air. The non was evidence of an orogastric tube. Contrast is seen within the stomach and small bowel loops. Lung bases: Mild dependent atelectasis Liver: Normal size. No obvious mass. Gallbladder: Layering gallstones along the dependent portion of the gallbladder lumen. Spleen: Unremarkable Pancreas: Diffuse fatty atrophy. Adrenals: Small adenoma in the crux of the left adrenal gland. Kidneys: No urolithiasis. No hydronephrosis. Bladder: Unremarkable Bowel: There is less small bowel distention at this time. Sigmoid diverticulosis. Peritoneum / Retroperitoneum: Bones: Degenerative changes of the spine. CT/Abdomen/Pel W ORAL Cont Only IMPRESSION: Persistent intraperitoneal air. Orogastric tube has been placed. There is less distention of the small bowel l oops at this time. Small gallstones. Reading Location: [place] [address]
[2024-07-24 12:04] LABS: Color, Urine Yellow (Yellow); Glucose, Dipstick Normal (Normal); Ketone-Dipstick 5 mg/dl (Negative); Leukocyte Esterase-Dipstick 100 /ul (Negative); Mucous, Urine 0 SEEN /hpf (<or=2+); Nitrite-Dipstick Positive (Negative); Occult Blood-Urine 25 /ul (Negative); Protein-Dipstick 100 mg/dl (Negative); Red Blood Cells-Urine 0 SEEN /hpf (0-5); Urine Clarity Sl. Cloudy (Clear); Urine Urobilinogen 1 mg/dl (Normal)
[2024-07-24 12:08] LABS: Urine Bilirubin Dipstick 1 mg/dL (Negative)
[2024-07-24 12:12] LABS: Bacteria 2+ /hpf (None Seen); Squamous Epithelial Cells - UA 0-5 SEEN /hpf (0-5); White Blood Cells 10-25 SEEN /hpf (0-5)
--- NOTE | 2024-07-24 12:14 | PCM.HP.STD ---
HPI - General HPI Narrative MAXWELL SANDHU, is a 54 M who presents with nausea and vomiting. The patient has also been having some loose stools over the last couple days. Patient reports the pain started yesterday is in the epigastric area and it is minor. He reports no abdominal pain leading up to this. He denies fevers or chills. [facility] Medical History (Updated 07/24/24 @ 11:[address] Des Barillas DO) (HFpEF) heart failure with preserved ejection fraction Sleep apnea Seizures Stroke/cerebrovascular accident Hypertension High cholesterol Diabetes Home Medications ?Medication ?Instructions ?Recorded ?Last Taken ?Type levetiracetam 500 mg tablet 500 mg PO BID keppra 11/01/23 07/23/24 History aspirin 81 mg chewable tablet 1 tab PO DAILY heart health 06/03/24 07/23/24 History insulin lispro 100 unit/mL 10 unit subcut TID diabetes #15 mL 06/04/24 07/23/24 Rx subcutaneous pen apixaban 5 mg tablet 5 mg PO BID #134 tabs 07/05/24 07/23/24 Rx furosemide 40 mg tablet 40 mg PO DAILY 30 days #30 tabs 07/05/24 07/23/24 Rx diltiazem HCl 120 mg 120 mg PO Q12H 07/24/24 07/23/24 History capsule,extended release 24 hr insulin glargine 100 unit/mL (3 30 unit subcut DAILY diabetes 07/24/24 07/23/24 History mL) subcutaneous pen (Lantus Solostar U-100 Insulin) nifedipine 30 mg tablet,extended 30 mg PO DAILY 07/24/24 07/23/24 History release Allergy/AdvReac Type Severity Reaction Status Date / Time No Known Allergies Allergy Verified 07/24/24 07:46 Family History (Updated 07/02/24 @ 16:[address] Des Hamm DO) Other Heart disease Surgical History (Updated 07/24/24 @ 08:[address] Des Barillas DO) Hx of arthroscopic knee surgery Hx of neck surgery Social History (Updated 07/24/24 @ 08:[address] Des Barillas DO) household members: spouse and family housing: house Smoking Status: Never smoker Smokeless tobacco user: snuff ROS Constitutional Constitutional: Denies anorexia, chills, fatigue or fever(s) Eyes Eyes: Denies blurry vision ENT HEENT: Denies abnormal hearing Cardiovascular Cardiovascular: Denies chest pain Respiratory/Chest Respiratory/Chest: Denies cough or dyspnea Gastrointestinal Gastrointestinal: Reports abdominal pain, nausea and vomiting; Denies constipation, diarrhea or dysphagia Genitourinary Genitourinary: Denies change in urinary stream Musculoskeletal Musculoskeletal: Denies abnormal gait Neurologic Neurologic: Denies abnormal gait Psychiatric Psychiatric: Denies anxiety Endocrine Endocrinology: Denies flushing Hematologic/Lymphatic Hematologic/Lymphatic: Denies easy bleeding Vital Signs Vital Signs Vital Signs: 07/24/24 07:45 07/24/24 09:45 Temperature 97 F L Temperature Source Temporal Pulse Rate 79 74 Respiratory Rate 14 16 Blood Pressure 131/78 H 135/88 H Blood Pressure Mean 95 103 Pulse Ox 98 99 Oxygen Delivery Method Room Air Weight Weight: 344 lb Body Mass Index (BMI) 50.8 Physical Exam Const oriented x3 and no apparent distress Resp normal respiratory effort GI soft to palpation and non-tender Results Lab / Micro Data 07/24/24 09:20 07/24/24 09:20 Labs: Laboratory Results - last 24 hr 07/24/24 09:20: WBC 10.4, RBC 6.17, Hgb 16.0, Hct 49.6, MCV 80.4, MCH 25.9 L, MCHC 32.3, RDW Std Deviation 41.0, RDW Coeff of Masha 14.1, Plt Count 178, MPV 11.1, Immature Gran % (Auto) 0.200, Neut % (Auto) 86.9 H, Lymph % (Auto) 5.6 L, [place] % (Auto) 6.2, Eos % (Auto) 0.7, Baso % (Auto) 0.4, Absolute Neuts (auto) 9.0 H, Absolute Lymphs (auto) 0.58 L, Nucleated RBC % 0, Sodium 140, Potassium 3.6, Chloride 103, Carbon Dioxide 24.8, Anion Gap 12, BUN 17, Creatinine 0.81, Estim Creat Clear Calc 154.59, Est GFR (MDRD) Non-Af 105, BUN/Creatinine Ratio 21.6 H, Glucose 209 H, Calcium 9.6, Total Bilirubin 0.75, AST 19, ALT 15, Alkaline Phosphatase 97, Total Protein 7.8, Albumin 3.8, Globulin 4.0, Albumin/Globulin Ratio 0.9, Lipase 18 07/24/24 11:51: Urine Color Yellow, Urine Clarity Sl. Cloudy, Urine pH 5.0, Ur Specific [place] 1.020, Urine Protein 100 H, Urine Glucose (UA) Normal, Urine Ketones 5 H, Urine Occult Blood 25 H, Urine Nitrite Positive H, Urine Bilirubin 1 H, Urine Urobilinogen 1 H, Ur Leukocyte Esterase 100 H, Urine RBC 0 SEEN, Urine WBC 10-25 SEEN, Ur Squamous Epith Cells 0-5 SEEN, Urine Bacteria 2+, Urine Mucus 0 SEEN Imaging Radiology Impression Abdomen/Pelvis CT 07/24/24 08:55 IMPRESSION: Fluid-filled slightly dilated small bowel loops with fluid in the colon. This may represent either early or incomplete small bowel obstruction. Ileus may also have a similar appearance. Free intraperitoneal air. Small gallstones are layered in the gallbladder lumen. Red Alert: Free air The critical information above was relayed directly by me by telephone to Des Barillas on 07/24/2024 at 10:38 am with readback verification. Reading Location: [facility] Assessment & Plan Assessment/Plan (1) Free intraperitoneal air: PLAN: The patient has some bubbles of free air. Upon questioning the patient he reports this is the exact situation he was in a few months ago. I reviewed the records and he was here in September and did have a CT scan that showed bubbles of free air with no known origin. He had a CT scan with oral contrast that did not show any leak and he did not require any surgery. His current CAT scan appears very similar to his last CAT scan with bubbles of air over the liver. There is no sign as to where the area originated. I would like to place an NG for suctioning and then perform an oral contrast CAT scan. Hold Eliquis. I will start him on antibiotics and a PPI. Maxwell Ricardo MD Pager: [facility] [address] [place] [address], [address] [place] [address] Office:
[2024-07-24] MEDS: Piperacil/Tazobactam 4.5 GM in 0.9% Normal Saline (100mL MB+) 100 ML IV (12:18)
[2024-07-24] MEDS: Oxymetazoline 0.05% 1 SPRAY SPRAY.BTL 2 SPRAY NASAL (12:19)
[2024-07-24] MEDS: 0.9% Normal Saline (1000mL) 1,000 ML 125 ML IV (15:26)
[2024-07-24] MEDS: 0.9% Saline Lock 10 ML Syringe IV (15:27)
[2024-07-24] MEDS: Phenol/Sodium Phenolate 180ML 3 SPRAY MUCOUS MEM (18:07)
[2024-07-24] MEDS: Piperacil/Tazobactam 3.375 GM in 0.9% Normal Saline (50mL MB+) 50 ML IV (21:53)
[2024-07-25 02:45] VITALS: BP 138/81; PULSE 69; RESP 16; TEMP 36.9; O2SAT 94
[2024-07-25] MEDS: 0.9% Normal Saline (1000mL) 1,000 ML 125 ML IV (02:49)
[2024-07-25 03:00] VITALS: PULSE 70
[2024-07-25] MEDS: Piperacil/Tazobactam 3.375 GM in 0.9% Normal Saline (50mL MB+) 50 ML IV ×3 (06:30→21:23)
[2024-07-25 07:28] VITALS: BP 129/77; PULSE 73; RESP 16; TEMP 36.7; O2SAT 95
[2024-07-25 07:30] VITALS: PULSE 75
[2024-07-25 07:40] LABS: Absolute Lymphocyte Count 1.06 X10^3/uL (0.83-4.51); Basophil# 0.04 X10^3/uL; Basophil% 0.7 % (0-1); Eosinophils% 3.4 % (0-5); Hematocrit 43.8 % (40-54); Lymphocyte # 1.06 X10^3/ul (0.83-4.51); Mean Corpuscular Volume 81.3 fL (80-94); Mean Platelet Vol. 11.4 fl (6.2-12.0); Monocyte# 0.57 X10^3/uL; Monocyte% 9.7 % (0-10); NRBC Flagged by Analyzer 0 % (0-5); Neutrophil # 3.99 X10^3/uL (2.7-7.7); Neutrophil % 67.7 % (47-70); Platelet Count 161 K/mm3 (150-450); RBC Distribution Width CV 14.4 % (11.6-14.6); RBC Distribution Width SD 41.9 fl (35.1-43.9); Red Blood Count 5.39 M/mm3 (4.6-6.2); White Blood Count 5.9 K/mm3 (4.4-11.0)
--- NOTE | 2024-07-25 07:57 | PN.SURG_ITS ---
Subjective Subjective Patient reports no abdominal pain this morning. He says the fullness he was feeling yesterday is gone. He denies nausea or vomiting. Objective Data Objective Data Vital Signs: Vital Signs Temp Pulse Resp BP Pulse Ox O2 Del Method 98.1 F 75 16 129/77 H 95 Room Air 07/25/24 07:28 07/25/24 07:30 07/25/24 07:28 07/25/24 07:28 07/25/24 07:28 07/25/24 07:28 Oxygen Delivery Method Room Air Weight: 344 lb Body Mass Index (BMI) 50.8 Intake & Output: Intake and Output for Last 24 Hours 07/23/24 07/24/24 07/25/24 23:59 23:59 23:59 Intake Total 1100 / 1100 50 / 50 Output Total 800 / 800 Balance 1100 / 600 -750 / -750 Lab / Micro Data 07/25/24 05:30 07/24/24 09:20 Labs: Laboratory Results - last 24 hr 07/24/24 09:20: WBC 10.4, RBC 6.17, Hgb 16.0, Hct 49.6, MCV 80.4, MCH 25.9 L, MCHC 32.3, RDW Std Deviation 41.0, RDW Coeff of Masha 14.1, Plt Count 178, MPV 11.1, Immature Gran % (Auto) 0.200, Neut % (Auto) 86.9 H, Lymph % (Auto) 5.6 L, [place] % (Auto) 6.2, Eos % (Auto) 0.7, Baso % (Auto) 0.4, Absolute Neuts (auto) 9.0 H, Absolute Lymphs (auto) 0.58 L, Nucleated RBC % 0, Sodium 140, Potassium 3.6, Chloride 103, Carbon Dioxide 24.8, Anion Gap 12, BUN 17, Creatinine 0.81, Estim Creat Clear Calc 154.59, Est GFR (MDRD) Non-Af 105, BUN/Creatinine Ratio 21.6 H, Glucose 209 H, Calcium 9.6, Total Bilirubin 0.75, AST 19, ALT 15, Alkaline Phosphatase 97, Total Protein 7.8, Albumin 3.8, Globulin 4.0, Albumin/Globulin Ratio 0.9, Lipase 18 07/24/24 11:51: Urine Color Yellow, Urine Clarity Sl. Cloudy, Urine pH 5.0, Ur Specific [place] 1.020, Urine Protein 100 H, Urine Glucose (UA) Normal, Urine Ketones 5 H, Urine Occult Blood 25 H, Urine Nitrite Positive H, Urine Bilirubin 1 H, Urine Urobilinogen 1 H, Ur Leukocyte Esterase 100 H, Urine RBC 0 SEEN, Urine WBC 10-25 SEEN, Ur Squamous Epith Cells 0-5 SEEN, Urine Bacteria 2+, Urine Mucus 0 SEEN 07/25/24 05:30: WBC 5.9, RBC 5.39, Hgb 14.0, Hct 43.8, MCV 81.3, MCH 26.0 L, MCHC 32.0, RDW Std Deviation 41.9, RDW Coeff of Masha 14.4, Plt Count 161, MPV 11.4, Immature Gran % (Auto) 0.500, Neut % (Auto) 67.7, Lymph % (Auto) 18.0 L, [place] % (Auto) 9.7, Eos % (Auto) 3.4, Baso % (Auto) 0.7, Absolute Neuts (auto) 4.0, Absolute Lymphs (auto) 1.06, Nucleated RBC % 0 Radiography Diagnostic Testing: Radiology Impression Abdomen/Pelvis CT 07/24/24 08:55 IMPRESSION: Fluid-filled slightly dilated small bowel loops with fluid in the colon. This may represent either early or incomplete small bowel obstruction. Ileus may also have a similar appearance. Free intraperitoneal air. Small gallstones are layered in the gallbladder lumen. Red Alert: Free air The critical information above was relayed directly by me by telephone to Des Barillas on 07/24/2024 at 10:38 am with readback verification. Reading Location: [facility] 07/24/24 11:30 IMPRESSION: Persistent intraperitoneal air. Orogastric tube has been placed. There is less distention of the small bowel loops at this time. Small gallstones. Reading Location: [facility] Physical Exam Const oriented x3 and no apparent distress Resp normal respiratory effort GI normal to inspection, nondistended, normoactive bowel sounds Assessment & Plan Assessment/Plan (1) Free intraperitoneal air: PLAN: The patient has a benign abdominal exam this morning with no pain. White count is normal with no left shift. NG put out minimal overnight. We had a repeat CT scan yesterday afternoon that showed no extra visitation of oral contrast. I am still concerned that this is peptic ulcer disease given the fact that he is having dumping and bloating with a lot of gas at baseline. Today I will remove the NG and start a clear liquid diet. Continue IV PPI. Resume home meds except for Eliquis. If he tolerates clear liquids and is doing well we will send him home on a oral PPI and follow-up with him in the office next week to schedule EGD. Austin Ricardo MD Pager: [facility] [address] [place] [address], [address] [place] [address] Office:
[2024-07-25 07:59] LABS: Anion Gap 12 (5-15); BUN 14 mg/dL (4-19); BUN/Creat Ratio 21.1 RATIO (10-20); Calcium,Total 8.4 mg/dL (7.6-11.0); Carbon Dioxide 21.9 mmol/L (21.0-32.0); Chloride 107 mmol/L (98-108); Creatinine, Serum 0.66 mg/dL (0.70-1.20); EST Glomerular Filtration Rate 111 (>60); Estimated Creatinine Clearance 189.73 ml/min (50-250); Glucose 115 mg/dL (70-99); Potassium 3.1 mmol/L (3.3-5.1); Sodium Level 141 mmol/L (133-145)
--- NOTE | 2024-07-25 08:59 | NURSING ---
CAll recieved from sister, Alisia. Update provided.
--- NOTE | 2024-07-25 09:28 | NURSING ---
NG removed. Tube intact. patient denies discomfort or gastric upset at this time. Tolerating clear fluids at this time. Will continue to monitor for abdominal discomfort.
[2024-07-25] MEDS: Furosemide 40 MG Tablet PO (11:15)
[2024-07-25] MEDS: levETIRAcetam 500 MG Tablet PO ×2 (11:15→21:23)
[2024-07-25] MEDS: dilTIAZem CD 120 MG Capsule PO ×2 (11:15→21:23)
[2024-07-25] MEDS: NIFEdipine 30 MG Tablet PO (11:16)
[2024-07-25] MEDS: Potassium Chloride Oral Tablet 20 MEQ 40 MEQ PO (11:16)
[2024-07-25] MEDS: Pantoprazole Sodium 40 MG in 0.9% Normal Saline (100mL MB+) 100 ML 330 MG IV (11:17)
[2024-07-25 11:51] LABS: Bedside Glucose 149 mg/dL (74-106)
[2024-07-25 14:00] VITALS: BP 143/88; PULSE 64; RESP 18; TEMP 36.1; O2SAT 98
--- NOTE | 2024-07-25 15:13 | CASEMGMT ---
AYUSH BYRNE Readmission Note Previous Admission: 07/02/24-07/05/24 Diagnosis: CHF exac DC Disposition: Home Current Admission: Admitted 07/24/24 Current Diagnosis: free intraabdominal air Pt dc'd from previous admission from [facility]F [facility]. Pt did not require any home oxygen and was dc'd on po lasix. Pt was to continue his eliquis for PE. Pt had an outpt therapy rx from prior and was to get a sleep study. Pt represented to the ER with abd pain, surgery on board. Pt had NG placed which is now removed and pt is on clear liquid diet. Per OR, pt possibly with PUD and will dc on oral PPI with f/u EGD. AYUSH BYRNE into pt room, pt lying in bed in no distress. Pt states he has been doing well at home. States his vitals have been good. Pt uses a w/c in the home and has 9 steps to get in the home and is able to use walker to navigate steps. Pt states his dtr just was let go from her job and will be with pt. They are attempting to get her to be his paid cg. Pt was supposed to have had a f/u appt with cardiology today. Pt plans to rescheduled this once dc'd from the hospital. Pt to see his PCP on 07/31/24 and will discuss his sleep study. 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 Pt denies any homegoing needs at this time. DC Plan: Home
[2024-07-25] MEDS: Insulin Lispro 100 UNIT/ML INSULN.PEN SC (16:36)
[2024-07-25 16:59] LABS: Bedside Glucose 162 mg/dL (74-106)
[2024-07-25 21:24] VITALS: PULSE 64
[2024-07-26 01:52] VITALS: BP 128/77; PULSE 63; RESP 18; TEMP 36.5; O2SAT 94
[2024-07-26 06:15] VITALS: BP 131/73; PULSE 68; RESP 16; TEMP 36.4; O2SAT 97
[2024-07-26] MEDS: Piperacil/Tazobactam 3.375 GM in 0.9% Normal Saline (50mL MB+) 50 ML IV ×3 (06:23→22:38)
[2024-07-26] MEDS: Insulin Lispro 100 UNIT/ML INSULN.PEN SC ×3 (06:23→17:21)
[2024-07-26] MEDS: 0.9% Saline Lock 10 ML Syringe IV (06:24)
[2024-07-26 06:58] LABS: Bedside Glucose 155 mg/dL (74-106)
[2024-07-26 07:40] VITALS: BP 130/73; PULSE 54; RESP 16; TEMP 36.5; O2SAT 95
--- NOTE | 2024-07-26 08:29 | PN.SURG_ITS ---
Subjective Subjective Patient denies any abdominal pain, tolerating clears and having bowel function. Objective Data Objective Data Vital Signs: Vital Signs Temp Pulse Resp BP Pulse Ox O2 Del Method 97.7 F L 54 L 16 130/73 H 95 Room Air 07/26/24 07:40 07/26/24 07:40 07/26/24 07:40 07/26/24 07:40 07/26/24 07:40 07/26/24 07:40 Oxygen Delivery Method Room Air Weight: 343 lb 14.738 oz Body Mass Index (BMI) 50.8 Intake & Output: Intake and Output for Last 24 Hours 07/24/24 07/25/24 07/26/24 23:59 23:59 23:59 Intake Total 1100 / 1100 2250 / 2950 850 / 850 Output Total 1200 / 1800 950 / 950 Balance 1100 / 600 1050 / 1150 -100 / -100 Lab / Micro Data 07/25/24 05:30 07/25/24 05:30 Labs: Laboratory Results - last 24 hr 07/25/24 11:31: POC Glucose 149 H 07/25/24 16:26: POC Glucose 162 H 07/26/24 06:20: POC Glucose 155 H Physical Exam Const oriented x3 and no apparent distress Resp normal respiratory effort Cardio regular rate GI soft to palpation and non-tender Inspection: Negative for abdominal distention Assessment & Plan Assessment/Plan (1) Free intraperitoneal air: PLAN: Patient continues to have benign abdominal exam?unsure etiology of intra- abdominal free air patient did have this previously and sent to [facility] and did not have any surgery at that time. Patient denies any history of upper abdominal pain or lower abdominal pain previous to coming to ER just felt bloated and had nausea and vomiting. White blood cell count normal with no shift on Zosyn as well as a PPI. Patient tolerated clears will advance to full liquids. [place] James M.D. Pager: [phone] [facility] [address] [place] [address], [facility], [address] [place] [address] Office: [phone] Charges/Coding Visit Charges Inpatient E&M: 10001 Subs Hosp L2
[2024-07-26 09:04] LABS: Absolute Lymphocyte Count 1.36 X10^3/uL (0.83-4.51); Absolute Neutrophil Count 4.6 X10^3/uL (2.0-7.7); Basophil# 0.04 X10^3/uL; Basophil% 0.6 % (0-1); Eosinophil# 0.38 X10^3/uL; Eosinophils% 5.4 % (0-5); Hematocrit 43.9 % (40-54); Hemoglobin 14.3 g/dL (13.0-16.5); Lymphocyte # 1.36 X10^3/ul (0.83-4.51); Lymphocyte % 19.3 % (19-41); Mean Corp Hgb Conc 32.6 g/dL (32-36); Mean Corpuscular Hgb 26.1 pg (27.0-32.0); Mean Corpuscular Volume 80.1 fL (80-94); Mean Platelet Vol. 10.6 fl (6.2-12.0); Monocyte# 0.62 X10^3/uL; Monocyte% 8.8 % (0-10); NRBC Flagged by Analyzer 0 % (0-5); Neutrophil # 4.61 X10^3/uL (2.7-7.7); Neutrophil % 65.5 % (47-70); Platelet Count 149 K/mm3 (150-450); RBC Distribution Width CV 13.9 % (11.6-14.6); Red Blood Count 5.48 M/mm3 (4.6-6.2)
[2024-07-26 09:35] LABS: Magnesium 2.1 mg/dL (1.5-2.2)
[2024-07-26 09:40] LABS: Anion Gap 10 (5-15); BUN 7 mg/dL (4-19); BUN/Creat Ratio 12.4 RATIO (10-20); Calcium,Total 8.2 mg/dL (7.6-11.0); Carbon Dioxide 23.1 mmol/L (21.0-32.0); Chloride 107 mmol/L (98-108); Creatinine, Serum 0.54 mg/dL (0.70-1.20); EST Glomerular Filtration Rate 119 (>60); Estimated Creatinine Clearance 231.85 ml/min (50-250); Glucose 135 mg/dL (70-99); Potassium 3.4 mmol/L (3.3-5.1); Sodium Level 140 mmol/L (133-145)
[2024-07-26] MEDS: dilTIAZem CD 120 MG Capsule PO ×2 (09:45→22:10)
[2024-07-26] MEDS: levETIRAcetam 500 MG Tablet PO ×2 (09:46→22:10)
[2024-07-26] MEDS: Furosemide 40 MG Tablet PO (09:47)
[2024-07-26] MEDS: NIFEdipine 30 MG Tablet PO (09:47)
[2024-07-26] MEDS: Pantoprazole Sodium 40 MG in 0.9% Normal Saline (100mL MB+) 100 ML 330 MG IV (10:50)
[2024-07-26 11:28] LABS: Bedside Glucose 227 mg/dL (74-106)
[2024-07-26 14:00] VITALS: BP 134/84; PULSE 70; RESP 18; TEMP 36.8; O2SAT 98
[2024-07-26 18:17] LABS: Bedside Glucose 212 mg/dL (74-106)
[2024-07-26 20:06] VITALS: PULSE 57
[2024-07-26 22:15] VITALS: BP 156/95; PULSE 67; RESP 16; TEMP 36.6; O2SAT 97
[2024-07-26 23:31] LABS: Bedside Glucose 229 mg/dL (74-106)
[2024-07-27 03:22] VITALS: PULSE 63
[2024-07-27 04:14] VITALS: BP 126/65; PULSE 68; RESP 16; TEMP 36.6; O2SAT 93
[2024-07-27] MEDS: Piperacil/Tazobactam 3.375 GM in 0.9% Normal Saline (50mL MB+) 50 ML IV (06:19)
[2024-07-27] MEDS: Insulin Lispro 100 UNIT/ML INSULN.PEN SC (06:21)
[2024-07-27 06:52] LABS: Bedside Glucose 179 mg/dL (74-106)
[2024-07-27 07:51] VITALS: PULSE 60
[2024-07-27 09:05] VITALS: BP 139/98; PULSE 64; RESP 18; TEMP 36.4; O2SAT 98
[2024-07-27] MEDS: levETIRAcetam 500 MG Tablet PO (09:13)
[2024-07-27] MEDS: dilTIAZem CD 120 MG Capsule PO (09:13)
[2024-07-27] MEDS: Furosemide 40 MG Tablet PO (09:13)
[2024-07-27] MEDS: NIFEdipine 30 MG Tablet PO (09:13)
--- NOTE | 2024-07-27 09:38 | PN.SURG_ITS ---
Subjective Subjective Patient tolerated transitional diet, still denies any abdominal pain. Having bowel function. Objective Data Objective Data Vital Signs: Vital Signs Temp Pulse Resp BP Pulse Ox O2 Del Method 97.6 F L 64 18 139/98 H 98 Room Air 07/27/24 09:05 07/27/24 09:05 07/27/24 09:05 07/27/24 09:05 07/27/24 09:05 07/27/24 09:19 Oxygen Delivery Method Room Air Weight: 343 lb 14.738 oz Body Mass Index (BMI) 50.8 Intake & Output: Intake and Output for Last 24 Hours 07/25/24 07/26/24 07/27/24 23:59 23:59 23:59 Intake Total 2250 / 2950 3156 / 3156 450 / 450 Output Total 1200 / 1800 3975 / 3975 1075 / 1075 Balance 1050 / 1150 -819 / -819 -625 / -625 Lab / Micro Data 07/26/24 08:54 07/26/24 08:54 Labs: Laboratory Results - last 24 hr 07/26/24 08:54: Sodium 140, Potassium 3.4, Chloride 107, Carbon Dioxide 23.1, Anion Gap 10, BUN 7, Creatinine 0.54 L, Estim Creat Clear Calc 231.85, Est GFR (MDRD) Non-Af 119, BUN/Creatinine Ratio 12.4, Glucose 135 H, Calcium 8.2 07/26/24 11:09: POC Glucose 227 H 07/26/24 17:18: POC Glucose 212 H 07/26/24 23:10: POC Glucose 229 H 07/27/24 06:20: POC Glucose 179 H Physical Exam Const oriented x3 and no apparent distress Resp normal respiratory effort Cardio regular rate GI soft to palpation and non-tender Inspection: Negative for abdominal distention Assessment & Plan Assessment/Plan (1) Free intraperitoneal air: PLAN: Patient continues to deny abdominal pain and has benign exam. Patient tolerated transitional diet. Will DC home with a few days of Augmentin as well as PPI. Patient will follow-up in [address] Ricardo to discuss future EGD and colonoscopy. [place] James M.D. Pager: [phone] [facility] [address] [place] [address], [facility], [address] [place] [id number] Office: [phone]
--- NOTE | 2024-07-27 09:39 | PCM.DC.SUM ---
Providers Date of Admission: 07/24/24 Date of Discharge: 07/27/24 Primary Care Physician: Dr. Curtis Park MD Reason For Visit: FREE INTRAABDOMINAL AIR Diagnosis Discharge Diagnosis (1) Free intraperitoneal air: Status: Acute Code(s): K66.8 - Other specified disorders of peritoneum Plan: Patient continues to have no abdominal pain and benign exam. Patient tolerated transitional diet. Plan to DC patient home with couple days of Augmentin as well as PPI. Patient will follow-up with Dr. Ricardo in 1 to 2 weeks to discuss possible EGD and colonoscopy in the future [place] James M.D. Pager: [phone] [facility] [address] [place] [address], [facility], [address] [place] [address] Office: [phone] Medications at Discharge Home Medications levetiracetam 500 mg tablet 500 mg PO BID keppra 11/01/23 aspirin 81 mg chewable tablet 1 tab PO DAILY heart health 06/03/24 insulin lispro 100 unit/mL subcutaneous pen 10 unit subcut TID diabetes #15 mL 06/04/24 apixaban 5 mg tablet 5 mg PO BID #134 tabs 07/05/24 furosemide 40 mg tablet 40 mg PO DAILY 30 days #30 tabs 07/05/24 alcohol swabs (Alcohol Prep Pads) 1 pad topical 4X/DAY 07/24/24 blood-glucose meter ([employer] Verio Flex Meter) #1 ea 07/24/24 diltiazem HCl 120 mg capsule,extended release 24 hr 120 mg PO Q12H 07/24/24 glucagon 1 mg solution for injection (Glucagon Emergency Kit) 1 mg IM PRN 07/24/24 insulin glargine 100 unit/mL (3 mL) subcutaneous pen (Lantus Solostar U-100 Insulin) 30 unit subcut DAILY diabetes 07/24/24 lancets 30 gauge (OneTouch Delica Plus Lancet) #100 ea 07/24/24 nifedipine 30 mg tablet,extended release 30 mg PO DAILY 07/24/24 sitagliptin phosphate 50 mg tablet (Januvia) 50 mg PO DAILY 07/24/24 amoxicillin 875 mg-potassium clavulanate 125 mg tablet 1 tab PO BID #4 tabs 07/27/24 omeprazole 40 mg capsule,delayed release 40 mg PO DAILY #30 caps 07/27/24 Hospital Course Operations None Procedures None Summary of Care Provided Minutes Spent on Discharge: 15 Hospital Course: 54-year-old male presents initially due to nausea vomiting abdominal bloating. Patient CT abdomen pelvis showed intra-abdominal air however no obvious source in the stomach which was fluid-filled or sigmoid was obvious on CT. Patient also previously had this last year in the fall and was sent to [facility] did not have surgery and was sent home. Patient has never had colonoscopy or EGD. Here patient was treated conservatively with IV antibiotics and IV Protonix. Patient continued to have a benign exam. Patient's diet was slowly advanced and patient did tolerate. Patient was DC'd home. Physical Exam Const oriented x3 and no apparent distress Resp normal respiratory effort Cardio regular rate GI soft to palpation and non-tender Inspection: Negative for abdominal distention Weight / BMI Weight Weight: 343 lb 14.738 oz Body Mass Index (BMI) 50.8 ABG / Lab / Microbiology Data 07/26/24 08:54 07/26/24 08:54 Laboratory: Laboratory Results - last 24 hr 07/26/24 11:09: POC Glucose 227 H 07/26/24 17:18: POC Glucose 212 H 07/26/24 23:10: POC Glucose 229 H 07/27/24 06:20: POC Glucose 179 H D/C Instructions Discharge Diet: - (Transitional/low fiber/diabetic) DC O2, CPAP, BIPAP Needs Home O2 Discharge instructions: No Please Follow Up With: Austin Ricardo MD When: Call the office [phone] for a follow-up appointment in 1 to 2 weeks?plan to discuss future EGD/colonoscopy Meaningful Use Info Meaningful Use Meaningful Use Diagnoses (Choose all that apply): None applicable Ischemic Stroke Statin Dosing Therapy Reference: STATIN DOSE THERAPY REFERENCE: * Patients > 75 years receive moderate or high dose statin therapy. * Patients 75 years or YOUNGER should receive HIGH intensity statin dose unless contraindicated. You will be required to document reason for non-treatment if statin daily dose does not meet guidelines. HIGH DOSE STATIN THERAPY DAILY Atorvastatin > than or = to 40 mg Rosuvastatin > than or = to 20 mg Amlodipine + Atorvastatin > than or = to 2.5/40 mg Ezetimibe + Simvastatin 10/80 mg Simvastatin 80mg Discharge Plan Admission Admit Date/Time: 07/24/24 11:29 Attending Provider: Austin Ricardo Primary Care Provider: Curtis Park Discharge Orders/Prescriptions Prescriptions: New amoxicillin-pot clavulanate 875-125 mg tablet 1 tab PO BID Qty: 4 0RF omeprazole 40 mg capsule,delayed release(DR/EC) 40 mg PO DAILY Qty: 30 5RF Continued (DME) lancets [OneTouch Delica Plus Lancet] 30 gauge misc See Rx Instructions .ROUTE BID Qty: 100 Rx Instructions: As directed Januvia 50 mg tablet 50 mg PO DAILY alcohol swabs [Alcohol Prep Pads] Pads, Medicated 1 pad topical 4X/DAY (DME) blood-glucose meter [[employer] Verio Flex meter] Misc See Rx Instructions .ROUTE .MEDSUPPLY Qty: 1 Patient Comments: [NO ORIGINAL SIG] Rx Instructions: As directed Glucagon Emergency Kit (human) 1 mg recon soln 1 mg IM PRN levetiracetam 500 mg tablet 500 mg PO BID furosemide 40 mg Tablet 40 mg PO DAILY 30 Days Qty: 30 2RF apixaban 5 mg tablet 5 mg PO BID Qty: 134 0RF aspirin 81 mg tablet,chewable 1 tab PO DAILY insulin lispro 100 unit/mL insulin pen 10 unit subcut TID Qty: 15 0RF Protocol: 6. Sliding Scale Insulin Custom Condition: mg/dl range Dose/Route: Number of Units Protocol Text: Custom Sliding Scale Rx Instructions: patient on sliding scale with meals subcutaneously three times a day; nifedipine 30 mg tablet extended release 30 mg PO DAILY diltiazem HCl 120 mg Capsule,Extended Release 24hr 120 mg PO Q12H insulin glargine [Lantus Solostar U-100 Insulin] 100 unit/mL (3 mL) insulin pen 30 unit subcut DAILY Referrals / Follow Up: Curtis Park MD [Primary Care Provider] - Charges/Coding Visit Charges Inpatient E&M: 94882 Disch Hosp
== END 2024-07-27 12:06 | disposition home or self-care (01) | DRG 241 ==
LOC: ED 11:41 → MS3 12:21
PROVIDERS: Surgery; Admitting Provider Surgery; Emergency Provider Emergency Medicine; Referring Provider Surgery; Visit Provider Surgery
DX: K27.9 Peptic ulcer, site unspecified, unspecified as acute or chronic, without hemorrhage or perforation (principal); K66.8 Other specified disorders of peritoneum; I11.0 Hypertensive heart disease with heart failure; Z68.43 Body mass index [BMI] 50.0-59.9, adult; E11.65 Type 2 diabetes mellitus with hyperglycemia; I50.32 Chronic diastolic (congestive) heart failure; E66.01 Morbid (severe) obesity due to excess calories; E78.00 Pure hypercholesterolemia, unspecified; R19.7 Diarrhea, unspecified; R11.2 Nausea with vomiting, unspecified; Z79.4 Long term (current) use of insulin; F17.220 Nicotine dependence, chewing tobacco, uncomplicated; R10.12 Left upper quadrant pain; R10.13 Epigastric pain; Z86.73 Personal history of transient ischemic attack (TIA), and cerebral infarction without residual deficits; Z79.01 Long term (current) use of anticoagulants; Z79.82 Long term (current) use of aspirin; Z79.84 Long term (current) use of oral hypoglycemic drugs; Z79.899 Other long term (current) drug therapy
CPT/HCPCS: 36415; 74176; 74177; 80048; 80053; 81001; 82962; 83690; 83735; 85025; 97161; 97166; 99284; Q9967; A4216; J2405

== ENCOUNTER 2024-09-24 06:33 | Day surgery (SDC) | payer MEDICAID, SELFPAY ==
--- NOTE | 2024-09-23 12:58 | PAT.ANE_ITS ---
Pre-Assessment Diagnosis/Proposed Procedure Planned Operative Procedure(s): EGD,COLONOSCOPY Anesthesia History Anesthesia History - senior environmental consultant: Anesthesia History - senior environmental consultant Hx Hospitalization Yes: 07/2024 CHF, AFIB; 09/23/24 09:25 PULMONARY EMBOLISM; AIR POCKET IN ABD Any Problems With Anesthesia No 09/23/24 09:25 Cholinesterase deficiency No 09/23/24 09:25 You/Your Family Experience No 09/23/24 09:25 fever (hyperthermia) with Relationship Recent Exposure to Contagious Disease Does patient have nerve No 09/23/24 09:25 stimulator Patient instructed to have device shut off --Does patient have Pacemaker or ICD? When Was Last Pacemaker Check QUESTION #4 FULL TEXT: You/Your Family Experience fever (hyperthermia) with Anesthesia Last Oral Intake Last Oral intake: Last Oral Intake NPO since Meds taken in AM with sips of water? Meds patient instructed to take am of surgery PONV PONV - senior environmental consultant: PONV - senior environmental consultant Female No 09/23/24 09:25 HX of Motion Sickness No 09/23/24 09:25 HX of N/V After Surgery No 09/23/24 09:25 Non-Smoker Yes 09/23/24 09:25 Duration of Surgery greater No 09/23/24 09:25 than 60 minutes Number of Risk Factors 1 09/23/24 09:25 PONV Score Low Risk 09/23/24 09:25 Height & Weight Height & Weight: Anesthesia: Height & Weight Height 5 ft 9 in 08/16/24 14:41 Respiratory Assessment Respiratory Assessment - senior environmental consultant: Respiratory Tract Infection Hx - senior environmental consultant Hx Respiratory Tract Infection No 09/23/24 09:25 STOP Sleep Apnea STOP Sleep Apnea - senior environmental consultant: STOP Sleep Apnea - senior environmental consultant Hx Hypertension Yes 09/23/24 09:25 Hx Sleep Apnea Yes 09/23/24 09:25 CPAP No 09/23/24 09:25 BIPAP No 09/23/24 09:25 Do you snore loudly (louder than talking or can be heard Do you often feel tired/ fatigued/ sleepy during daytime? Has anyone observed you stop breathing during sleep? STOP Results Positive 09/23/24 09:25 QUESTION #5 FULL TEXT : Do you snore loudly (louder than talking or can be heard through closed doors)? 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 Specify any problems Hx of Preganancy in last 3 N/A 09/23/24 09:25 Months Nurse Filling Out Transfusion MGRIMARIELA 09/23/24 09:25 & Questions: Date: 09/23/24 09/23/24 09:25 Time: :09/23/24 09:25 Patient unable to answer at this time (ie. confused, unrespo /Reproduction History /Reproductive History - senior environmental consultant: /Reproductive Hx- senior environmental consultant Hx Now No 09/23/24 09:25 Gestational Age (in weeks): EDC: Hx Hx Para Hx Section SAB No 09/23/24 09:25 [facility] Medical History (Updated 09/23/24 @ 09:38 by April Lopez) Wears glasses Anxiety Uses wheelchair Arthritis Gout History of pulmonary embolism Injury of head and neck Gastric reflux Chews tobacco History of edema History of echocardiogram Cardiology follow-up encounter History of CHF (congestive heart failure) History of atrial fibrillation Cervical vertebral fusion Seizure Migraine Hypothyroidism Hyperlipidemia GERD (gastroesophageal reflux disease) Essential hypertension Depression COPD (chronic obstructive pulmonary disease) (HFpEF) heart failure with preserved ejection fraction Sleep apnea Seizures Stroke/cerebrovascular accident Hypertension High cholesterol Diabetes Home Medications ?Medication ?Instructions ?Recorded ?Last Taken ?Type aspirin 81 mg chewable tablet 1 tab PO DAILY heart hea lth 06/03/24 07/23/24 History insulin lispro 100 unit/mL 10 unit subcut TID diabetes #15 mL 06/04/24 07/23/24 Rx subcutaneous pen furosemide 40 mg tablet 40 mg PO DAILY 30 days #30 t abs 07/05/24 07/23/24 Rx alcohol swabs (Alcohol Prep Pads) 1 pad topical 4X/DAY 07/24/24 Unknown History blood-glucose meter (OneTouch #1 ea 07/24/24 Unknown H istory Verio Flex Meter) diltiazem HCl 120 mg 120 mg PO Q12H 07/24/2407/07 History capsule,extended release 24 hr glucagon 1 mg solution for 1 mg IM X1 PRN hypoglycemia 07/24/24 Unknown History injection (Glucagon Emergency Kit) insulin glargine 100 unit/mL (3 30 unit subcut DAILY d iabetes 07/24/24 07/23/24 History mL) subcutaneous pen (Lantus Solostar U-100 Insulin) lancets 30 gauge (OneTouch Delica #100 ea 07/24/24 Unk nown History Plus Lancet) nifedipine 30 mg tablet,extended 30 mg PO DAILY 07/23/24 History release sitagliptin phosphate 50 mg tablet 50 mg PO DAILY 07/07 09/30 Unknown History (Januvia) omeprazole 40 mg capsule,delayed 40 mg PO DAILY #30 ca ps 07/27/24 Unknown Rx release apixaban 5 mg tablet 5 mg PO BID #60 tabs 5 09/21/24 Rx atorvastatin 40 mg tablet 40 mg PO QDAY 08/16/24 Unkno wn History losartan 50 mg tablet 50 mg PO QDAY 08/16/24 Unkno wn History Allergy/AdvReac Type Severity Reaction Status Date / Time No Known Allergies Allergy Verified 09/23/24 09:20 Family History Other Heart disease Surgical History H/O arthroscopy of knee Hx of arthroscopic knee surgery Hx of neck surgery Social History household members: spouse and family housing: house Smoking Status: Never smoker Smokeless tobacco user: snuff Audit: Pertinent Findings Pertinent Findings EKG Perinent findings: July 02, 2024. Atrial flutter with 4:1 AV conduction. Left posterior fascicular block. Possible anterior infarct, age undetermined. Echo (EF%) pertinent findings: June 03, 2024. EF of 50%. No aortic stenosis is noted. Moderate LVH.
[2024-09-24] VITALS (8 sets, daily range): BP systolic 111–155; BP diastolic 69–79; PULSE 56–66; RESP 16–20; TEMP 36.1–36.6; O2SAT 92–97; BMI 50.5
--- NOTE | 2024-09-24 06:53 | PCM.HP.BLA ---
History and Physical Date of Admission: 09/24/24 Intake Vital Signs 07/25/2510:52 08/16/2513:41 Height 5 ft 9 in 5 ft 9 in Weight: 349 lb BMI 51.5 Body Surface Area 0 BP 128/84 H Blood Pressure Location Rt brachial Position Sitting Respiration 18 Pulse 64 Pulse Source Monitor Temp 97.2 F L Temp Source Temporal Pulse Oximetry (%) 97 Oxygen Delivery Method room air Intake Visit Reasons: HOSPITAL F/U- DISCUSS UPPER AND LOWER Chief Complaint: hospital f/u- discuss upper and lower Is patient in pain?: No Allergies No Known Allergies Allergy (Verified 08/16/24 14:42) Medications ?Medication ?Instructions ?Recorded ?Confirmed ?Type aspirin 81 mg chewable tablet 1 tab PO DAILY heart health 06/03/24 08/16/24 History insulin lispro 100 unit/mL 10 unit subcut TID diabetes #15 mL 06/04/24 08/16/24 Rx subcutaneous pen furosemide 40 mg tablet 40 mg PO DAILY 30 days #30 tabs 07/05/24 08/16/24 Rx alcohol swabs (Alcohol Prep Pads) 1 pad topical 4X/DAY 07/24/24 08/16/24 History blood-glucose meter ([employer]Touch #1 ea 07/24/24 08/16/24 History Verio Flex Meter) diltiazem HCl 120 mg 120 mg PO Q12H 07/24/24 08/16/24 History capsule,extended release 24 hr glucagon 1 mg solution for 1 mg IM PRN 07/24/24 08/16/24 History injection (Glucagon Emergency Kit) insulin glargine 100 unit/mL (3 30 unit subcut DAILY diabetes 07/24/24 08/16/24 History mL) subcutaneous pen (Lantus Solostar U-100 Insulin) lancets 30 gauge (OneTouch Delica #100 ea 07/24/24 08/16/24 History Plus Lancet) nifedipine 30 mg tablet,extended 30 mg PO DAILY 07/24/24 08/16/24 History release sitagliptin phosphate 50 mg tablet 50 mg PO DAILY 07/24/24 08/16/24 History (Januvia) omeprazole 40 mg capsule,delayed 40 mg PO DAILY #30 caps 07/27/24 08/16/24 Rx release apixaban 5 mg tablet 5 mg PO BID #60 tabs 08/08/24 08/16/24 Rx atorvastatin 40 mg tablet 40 mg PO QDAY 08/16/24 08/16/24 History losartan 50 mg tablet 50 mg PO QDAY 08/16/24 08/16/24 History PFSH Medical History Cervical vertebral fusion Seizure Migraine Hypothyroidism Hyperlipidemia GERD (gastroesophageal reflux disease) Essential hypertension Depression COPD (chronic obstructive pulmonary disease) (HFpEF) heart failure with preserved ejection fraction Sleep apnea Seizures Stroke/cerebrovascular accident Hypertension High cholesterol Diabetes Surgical History H/O arthroscopy of knee Hx of arthroscopic knee surgery Hx of neck surgery Family History Other Heart disease Social History household members: spouse and family housing: house Smoking Status: Never smoker Smokeless tobacco user: snuff HPI HPI HPI: Patient is a 54-year-old male who was recently in the hospital with free air. The patient was treated with a PPI and discharged home. He reports that on a PPI he feels much better with less bloating and less gas and no reflux. He reports no abdominal pain. ROS General General: Yes weight change; No appetite, fatigue, colon cancer, breast cancer or weakness HEENT HEENT: No difficulty swallowing, eye injury, eye surgery, swollen glands or hoarseness Endo Endocrine: Yes diabetes mellitus; No thyroid disease, thyroid cancer, Hair loss, heat intolerance or cold intolerance Skin Skin: No rash or changing moles Musc Musculoskeletal: Yes back problems and gout; No arthritis, rheumatoid arthritis or joint pain Cardio Cardiovascular: Yes heart disease, atrial fibrillation and high blood pressure; No murmur, pacemaker, heart attack, heart stent, palpitations, shortness of breath with exertion or chest pain Psych Psychiatric: Yes depression and anxiety; No hearing voices Resp Respiratory: No shortness of breath, Yes sleep apnea, No cough, No COPD, No asthma, No emphysema and No wheezing Gastro Gastrointestinal: No abdominal pain, No nausea or vomiting, Yes diarrhea, Yes constipation, No blood in stool, Yes acid reflux, No hemorrhoids, No ulcers, No gallbladder problem and No black,tarry stools Tommy Hematologic: Yes blood thinners, No blood disorders, No bleeding, No anemia and Yes blood clots Neuro Neurologic: No numbness, No tingling and No weakness Exam Const General: cooperative Orientation: alert and oriented x3 HENMT Head: normal to inspection Neck Neck: normal visual inspection and full ROM Chest Chest palpation & inspection: normal inspection of the chest Resp Effort & Inspection: normal respiratory effort Auscultation: clear to auscultation bilaterally Cardio Rate: regular rate Rhythm: regular rhythm GI Inspection: non-distended Palpation: soft and nontender Skin General: no rashes or lesions noted Neuro General: patient alert and patient oriented x3 Extrem General: full ROM Psych Appearance: grossly normal Mental Status: mental status grossly normal Assessment and Plan Assessment and Plan (1) Free intraperitoneal air: Status: Acute Plan: The patient has some bubbles of free air on his last CAT scan. This was also the case last time he was at [facility]. I started him on a PPI concerned for peptic ulcer. Patient reports some lot of improvement but I would like to do an EGD to evaluate. (2) Screen for colon cancer: Status: Acute Plan: Patient has never had a screening colonoscopy. Recommend screening colonoscopy. I explained endoscopy in detail to the patient. I explained the risks including but not limited to stroke or heart attack with anesthesia, perforation of the GI tract, bleeding, infection. I explained that any of these could necessitate further emergency surgery. The patient understands and all questions were answered sufficiently. The patient wishes to proceed with procedure. Austin Ricardo MD Pager: [facility] [address] [place] [address], [address] [place] [address] Office: I have seen and examined the patient and reviewed the H&P. There are no clinical changes
--- OUTSIDE RECORDS SUMMARY | 2024-09-24 06:56 | XMS RPT_ITS | CCD ---
Author Organization [facility] Inform ion Partnership [facility] Care Team Providers Care Surgical Tech Name Role Phone PCP, NONE Primary Care Provider Performer Required, No Pcp Unavailable Unavailable Yovany Goff Unavailable Unavailable Curtis Hernandez MD Primary Care Provide r Curtis Hernandez MD Primary Care Provide r Curtis Hernandez MD Primary Care Provider CHRISTOPHER HERNANDEZ Referring Unavailable REJI CURRAN Attending Unavailable CURTIS HERNANDEZ Primary Care Unavailable DON SHEN Referring Unavailable CHENCHO PERRY Admitting Unavailable CHENCHO PERRY Attending Unavailable CONSULT, SURGERY - GENERAL (EMERGENT) Consulting Unavailable ALEXANDER CAREY Referring Unavailable ALEXANDER CAREY Attending Unavailable CURTIS HERNANDEZ Primary Care Unavail able [facility], [facility] Consulting Unavai ERIKA Cuellar Admitting Unavailable CURTIS HERNANDEZ Primary Care Unavail able JORGE LUIS DONOHUE Attending Unavailable Dr. Curtis Hernandez MD Primary Care Provider John Schneider MD Emergency Provider [phone] Kaiden Cervantes DO Admit Provider Unavail able Dr. Kaiden Zafar DO Attending Provider Unav howardable Jorge Javier OD Unavailable Dr. Curtis Hernandez MD Primary Care Provider John Schneider MD Emergency Provider de Dr. Kaiden Cervantes DO Admit Provider Unavail able Zafar DO, Dr. Richey Other Provider Unavail able Aleah CAO, Dr. Richey Attending Provider Unavaila maryana Mills MD, Dr. Nunes Attending Provider Zafar DO, Dr. Richey Referring Provider Orville Collins MD, Dr. Castillo Attending Provider Aleah CAO, Dr. Richey Other Provider Unavailable LitaJennifer DO, Dr. Reed Emergency Provider Alixneyda DO, Dr. Nunes Admit Provider Noris DO, Dr. Nunes Attending Provider Noris SALEH, Dr. Nunes Other Provider Raeann , Dr. Bravo Attending Provider Noris SALEH, Dr. Nunes Attending Provider Raeann , Dr. Bravo Other Provider [facility], Dr. Nunes Emergency Provider Haleigh CAO, Dr. Avila Admit Provider Haleigh CAO, Dr. Avila Attending Provider [phone] Haleigh CAO, Dr. Avila Referring Provider Haleigh CAO, Dr. Avila Other Provider [phone] Erika CAO, Dr. Berumen Attending Provider CURTIS HERNANDEZ Primary Care Unavail able PACO SEARS Attending Unavailab CURTIS Hightower Primary Care Unavail able PACO SEARS Attending Unavailab PACO Edgar Attending Unavailab CURTIS Hightower Primary Care Unavail able FRANKLIN HERNANDEZO ABBY Primary Care Unavail able PACO SEARS Attending Unavailab ALPHONSO Zamarripa JR. Attending Unavailable CURTIS HERNANDEZ Primary Care Unavail able CURTIS HERNANDEZ Admitting Unavail able CURTIS HERNANDEZ Referring Unavail able BRUNICARDI, CURTIS ABBY Attending Unavail able BRUNICARDI, CURTIS ABBY Primary Care Unavail able BRUNICARDI, CURTIS ABBY Primary Care Unavail able PEGGY WAY Attending UnavailALPHONSO Waller JR. Attending Unavailable BRUNICARDI, CURTIS ABBY Primary Care Unavail able PACO SEARS Attending Unavailab le BRUNICARDI, CURTIS ABBY Primary Care Unavail able BRUNICARDI, CURTIS ABBY Admitting Unavail able BRUNICARDI, CURTIS ABBY Referring Unavail able BRUNICARDI, CURTIS ABBY Primary Care Unavail able BRUNICARDI, CURTIS ABBY Attending Unavail able BRUNICARDI, CURTIS ABBY Primary Care Unavail able BRUNICARDI, CURTIS ABBY Attending Unavail able BRUNICARDI, CURTIS ABBY Primary Care Unavail able BRUNICARDI, CURTIS ABBY Attending Unavail able PEGGY WAY Attending Unavailabl e BRUNICARDI, CURTIS ABBY Primary Care Unavail able BRUNICARDI, CURTIS ABBY Attending Unavail able BRUNICARDI, CURTIS ABYB Primary Care Unavail able BRUNICARDI, CURTIS ABBY Primary Care Unavail able BRUNICARDI, CURTIS ABBY Attending Unavail able PACO SEARS Attending Unavailab le BRUNICARDI, CURTIS ABBY Primary Care Unavail able Dr. Curtis Hernandez MD Referring Provider [phone] Ha RN, Marie R Unavailable Unav ailable Mauri Huggins Attending Unavailable Brunicardi, Curtis Primary Care Unavailable Brunicardi, Curtis Primary Care Unavailable Maxwell Ricardo Attending Unavailable Brunicardi, Curtis Primary Care Unavailable Maxwell Ricardo Attending Unavailable Maxwell Ricardo Consulting Unavailable Maxwell Ricardo Admitting Unavailable Maxwell Ricardo Referring Unavailable [place] Attending Unavailable Kaiden Zafar Referring Unavailable Brunicardi, Curtis Primary Care Unavailable [place] James Attending Unavailable Kaiden Zafar Attending Unavailable Kaiden Zafar Consulting Unavailable Kaiden Zafar Admitting Unavailable Alexisrdi, Curtis Primary Care Unavailable Kaiden Bullard Attending Unavailable KitKaiden rodriguez Consulting Unavailable Brunicardi, Curtis Primary Care Unavailable Brunicardi, Curtis Referring Unavailable DennisAnna Attending Unavailable DennisAnna Attending Unavailable Brunicardi, Curtis Primary Care Unavailable Brunicardi, Curtis Primary Care Unavailable Jopperi, Des Attending Unavailable Brunicardi, Curtis Primary Care Unavailable Jopperi, Des Consulting Unavailable Toryeri, Des Admitting Unavailable Lawrence Cary Attending Unavailable Lawrence Cary Consulting Unavailable Brunicardi, Curtis Referring Unavailable Brunicardi, Curtis Primary Care Unavailable Calabretta, Maxwell Attending Unavailable Brunicardi, Curtis Referring Unavailable Brunicardi, Curtis Primary Care Unavailable Calabretta, Maxwell Attending Unavailable Brunicardi, Curtis Primary Care Unavailable Jopperi, Des Consulting Unavailable Jopperi, Des Admitting Unavailable Lawrence Cary Attending Unavailable Brunicardi, Curtis Primary Care Unavailable Calabrcb, Maxwell Attending Unavailable Calabrcb, Maxwell Admitting Unavailable Maxwell Ricardo Referring Unavailable Kaiden Zafar Consulting Unavailable Kaiden Zafar Admitting Unavailable Kaiden Bullard Attending Unavailable Brunicardi, Curtis Primary Care Unavailable Allergies Allergy Classification Reported Allergen(s) Allergy Type Date of Onset Reaction(s) Facility NEGATED: Highlighted row has been ruled out! (2 sources) natural latex rubber; Translations: [LATEX, NATURAL RUBBER] Drug allergy (disorder) S NEGATED: Highlighted row has been ruled out! (2 sources) No IV Contrast Allergy.; Translations: [IV Dye, Iodine Containing] Drug allergy (disorder) S Medications Current Medications Medication Drug Class(es) Dates Sig (Normalized) Sig (Original) acetaminophen 325 mg oral tablet (3 sources) Start: 09-11-2023 take 2 tablets by mouth every four hours as needed Acetaminophen 325 MG tablet Take 2 tablets by mouth every 4 hours as needed for Moderate Pain. 09/11/2023 Active Start: 09-10-2023 End: 09-11-2023 take 1 tablet by mouth every four hours as needed 650 mg, Oral, EVERY 4 HOURS NEEDED, Starting on 09/10/23 at 1524, Until 09/11/23 at 1759, Moderate Pain, Maximum dose of acetaminophen is 4000 mg from all sources in 24 hours. apixaban 5 mg oral tablet (20 sources) Factor Xa Inhibitor Start: 06-04-2024 End: 08-08-2024 take 1 tablet by mouth twice daily apixaban 5 mg Tab Take 1 (one) tablet (5 mg total) by mouth 2 (two) times a day . 06/04/2024 Active Start: 06-04-2024 End: 07-05-2024 take 2 tablets by mouth twice daily, then take 1 tablet by mouth twice daily Apixaban 5 mg tablet Discontinued 5 mg PO TWICE A DAY 134 0 June 04, 2024 12:00am July 05, 2024 11:54am 10 mg twice daily for 7 days and subsequently 5 mg twice daily aspirin 81 mg chewable tablet (20 sources) Platelet Aggregation Inhibitor, Nonsteroidal Anti-inflammatory Drug Start: 06-03-2024 Aspirin 81 mg tablet,chewable Active 1 {tbl} PO DAILY June 03, 2024 12:00am heart [facility] [place] Start: 09-09-2023 End: 09-11-2023 take 1 tablet by mouth once daily aspirin 81 MG Chew Tab chewable tablet Chew and swallow 1 tablet by mouth daily. 30 tablet 1 09/11/2023 Active take 1 tablet by vlad th once daily aspirin 81 MG EC tablet Take 1 (one) tablet (81 mg total) by mouth daily . Active atorvastatin 40 mg oral tablet (20 sources) HMG-CoA Reductase Inhibitor Start: 10-06-2023 End: 10-29-2024 take 1 tablet by mouth once daily atorvastatin (LIPITOR) 40 MG tablet Indications: Pure hypercholesterolemia Take 1 (one) tablet (40 mg total) by mouth daily . 30 tablet 2 07/31/2024 10/29/2024 Active Start: 09-11-2023 End: 09-11-2023 take 40 mg by mouth once daily at bedtime 40 mg, Oral, DAILY AT BEDTIME, First dose on Mon09/11/23 at 2100, Until Discontinued Start: 09-11-2023 End: 10-06-2023 take 1 tablet by mouth at bedtime Atorvastatin 40 MG tablet Take 1 tablet by mouth at bedtime. 30 tablet 1 09/11/2023 Active Blood Glucose Monitoring Sup pl w/Device Kit (1 source) Start: 09-11-2023 Blood Glucose Monitoring Suppl w/Device Kit Use as directed for blood sugar monitoring. 1 kit 09/11/2023 Active Blood-Glucose Meter (Onetouc h Verio Flex Meter) [facility] [place] (3 sources) Start: 07-24-2024 Blood-Glucose Meter (Onetouch Verio Flex Meter) [facility] [place] Active NMA .ROUTE .MEDSUPPLY July 24, 2024 12:00am As directed blood-glucose meter kit (2 sources) Start: 08-15-2024 End: 08-15-2025 blood-glucose meter kit Indications: Type 2 diabetes mellitus without complication, without long-term current use of insulin (HCC) Use as instructed . 1 each 08/15/2024 08/15/2025 Active blood-glucose sensor (FreeStyle Silke 3 Plus Sensor) Annette (12 sources) Start: 06-14-2024 blood-glucose sensor (FreeStyle Silke 3 Plus Sensor) Annette 1 Device by Miscellaneous route every 14 (fourteen) days . 2 each 11 06/14/2024 Active Start: 12-01-2023 End: 03-04-2024 blood-glucose sensor (FreeSt yle Silke 3 Plus Sensor) Annette Indications: Type 2 diabetes mellitus without complication, without long-term current use of insulin (HCC) 1 device by miscellaneous route every 15 days. DX: E11.9 . 2 each 11 12/01/2023 03/04/2024 Discontinued Start: 12-01-2023 blood-glucose sensor (FreeStyle Silke 3 Plus Sensor) Annette Indications: Type 2 diabetes mellitus without complication, without long-term current use of insulin (HCC) 1 device by miscellaneous route every 15 days. DX: E11.9 . 2 each 11 12/01/2023 Active cyclobenzaprine hydrochloride 10 mg oral tablet (8 sources) Muscle Relaxant Start: 04-08-2022 End: 10-05-2022 take 1 tablet by mouth three times daily as needed for muscle spasms cyclobenzaprine (FLEXERIL) 10 MG tablet Indications: Muscle spasm Take 1 (one) tablet (10 mg total) by mouth 3 (three) times a day as needed for muscle spasms . 90 tablet 5 04/08/2022 10/05/2022 Active Start: 10-08-2021 End: 04-08-2022 take 1 tablet by mouth twice daily as needed for muscle spasms cyclobenzaprine (FLEXERIL) 10 MG tablet Indications: Muscle spasm Take 1 (one) tablet (10 mg total) by mouth 2 (two) times a day as needed for muscle spasms . 60 tablet 2 12/15/2021 03/15/2022 Active 24 hr dilTIAZem hydrochloride 120 mg extended release oral capsule (18 sources) Calcium Channel Lewis Start: 06-04-2024 take 1 capsule by mouth once daily diltiazem (CARDIZEM CD) 120 MG 24 hr capsule Take 1 (one) capsule (120 mg total) by mouth daily . 06/04/2024 Active Start: 06-04-2024 End: 07-24-2024 take 1 capsule by mouth every twelve hours Diltiazem Hcl 120 mg Capsule,Extended Release 24hr Active 120 mg PO Q12H July 24, 2024 12:00am empagliflozin 10 mg oral tablet (13 sources) Sodium-Glucose Cotransporter 2 Inhibitor Start: 06-14-2024 End: 07-24-2024 take 1 tablet by mouth once daily empagliflozin (Jardiance) 10 mg Tab Take 1 (one) tablet (10 mg total) by mouth daily . 30 tablet 11 06/14/2024 Active famciclovir 500 mg oral tablet (1 source) Herpes Simplex Virus Nucleoside Analog DNA Polymerase Inhibitor Start: 08-27-2021 End: 09-05-2021 take 1 tablet by mouth three times daily famciclovir 500 mg oral tablet ; 1 tab(s) orally 3 times a day Quantity: 30 Refills: 0 Ordered: 27-Aug-2021 Yovany Goff Start: 27-Aug-2021 End: 05-Sep-2021 Generic Substitution Allowed Comments: It is very important that you take or use this exactly as directed. Do not skip doses or discontinue unless directed by your doctor. Comment on above: It is very important that you take or use this exactly as directed. Do not skip doses or discontinue unless directed by your doctor. furosemide 40 mg oral tablet (11 sources) Loop Diuretic Start: 07-05-2024 take 1 tablet by mouth once daily furosemide (LASIX) 40 MG tablet Take 1 (one) tablet (40 mg total) by mouth daily . 07/05/2024 Active take 1 tablet by mouth twice bran ly furosemide 40 mg Tablet Directions: 1 tablet oral twice a day glucagon (rdna) 1 mg injection (5 sources) Antihypoglycemic Agent Start: 07-24-2024 Glucago n (Glucagon Emergency Kit (Human)) 1 mg recon soln Active 1 mg IM as needed July 24, 2024 12:00am Start: 09-11-2023 inject 1 mg by intra muscular injection once as needed glucagon 1 MG Kit injection Inject 1 mg intramuscularly once for 1 dose as needed. 1 kit 1 09/11/2023 Active 3 ml insulin glargine 100 unt/ml pen injector (20 sources) Insulin Analog Start: 07-24-2024 Insulin Glargi ne (Lantus Solostar U-100 Insulin) 100 unit/mL (3 mL) insulin pen Active 30 U SC DAILY July 24, 2024 12:00am diabetes Start: 06-04-2024 End: 07-24-2024 Insulin Glargine (Lantus Roselia ostar U-100 Insulin) 100 unit/mL (3 mL) insulin pen Discontinued 25 U SC DAILY 15 0 June 04, 2024 8:52am July 24, 2024 9:33am diabetes Start: 03-04-2024 End: 06-14-2024 insulin glargine (LANTUS SOLOSTAR/BASAGLAR KWIKPEN) 100 unit/mL (3 mL) InPn Indications: Type 2 diabetes mellitus without complication, without long-term current use of insulin (HCC) Inject 30 (thirty) Units under the skin every morning . 15 mL 11 06/14/2024 Active Start: 12-01-2023 End: 03-04-2024 insulin glargine (LANTUS SOLOSTAR/BASAGLAR KWIKPEN) 100 unit/mL (3 mL) InPn Indications: Type 2 diabetes mellitus without complication, without long-term current use of insulin (HCC) Inject 25 (twenty five) Units under the skin nightly . 15 mL 11 12/01/2023 03/04/2024 Discontinued (Reorder (Suppress CancelRx Message to Pharmacy)) Start: 11-01-2023 End: 06-04-2024 Insulin Glargine (Lantus Roselia ostar U-100 Insulin) 100 unit/mL (3 mL) insulin pen Discontinued 100 U SC DAILY November 01, 2023 12:00am June 04, 2024 8:52am diabetes Start: 11-01-2023 Insulin Glargi ne (Lantus Solostar U-100 Insulin) 100 unit/mL (3 mL) insulin pen Active U SC November 01, 2023 12:00am Start: 10-06-2023 End: 02-06-2024 insulin glargine (LANTUS SOLOSTAR/BASAGLAR KWIKPEN) 100 unit/mL (3 mL) InPn Indications: Type 2 diabetes mellitus without complication, without long-term current use of insulin (HCC) Inject 22 (twenty two) Units under the skin nightly . 9 mL 2 10/06/2023 12/01/2023 Discontinued (Reorder (Suppress CancelRx Message to Pharmacy)) Start: 09-11-2023 inject 18 [IU] by mosher bcutaneous injection once daily in the morning insulin glargine 100 UNIT/ML Solution Pen-injector injection Inject 18 Units under the skin daily every morning. No Titration 15 mL 1 09/11/2023 Active inject 36 [IU] by mosher bcutaneous injection once daily at bedtime, then inject 100 [IU] by subcutaneous injection insulin glargine (Basaglar KwikPen U-100 Insulin) 100 unit/mL (3 mL) Insulin Pen Directions: 36 unit subcutaneous daily at bedtime 3 ml insulin lispro 100 unt/ml pen injector (20 sources) Insulin Analog Start: 06-14-2024 insulin lispro (HumaLOG KwikPen Insulin) 100 unit/mL InPn Inject 15 (fifteen) Units to 25 (twenty five) Units under the skin 3 (three) times a day . 30 mL 11 06/14/2024 Active Start: 06-03-2024 Insulin Lispro 100 unit/mL insulin pen Active 10 U SC THREE TIMES A DAY June 03, 2024 12:00am Start: 12-01-2023 End: 06-14-2024 Insulin Lispro 100 unit/mL i nsulin pen Discontinued 0 U SC THREE TIMES A DAY June 03, 2024 12:00am June 04, 2024 8:52am diabetes patient on sliding scale with meals subcutaneously three times a day; Please contact the information source for Protocol details. inject 10 [IU] by mosher bcutaneous injection three times daily before mealtime insulin lispro (Admelog U-100 Insulin lispro) 100 unit/mL Solution Directions: 10 unit subcutaneous three times a day before meals isopropyl alcohol 0.7 ml/ml medicated pad (5 sources) Start: 07-24-2024 Alcohol Swabs (Alcohol Prep Pads) pads, medicated Active 1 NMA TOPICAL 4 TIMES DAILY July 24, 2024 12:00am Start: 09-11-2023 Alcohol Swabs Pads Use to cleanse fingertip before each blood glucose test. 200 Each 1 09/11/2023 Active levETIRAcetam 500 mg oral tablet (20 sources) Start: 09-11-2023 End: 08-16-2024 take 1 tablet by mouth twice daily levETIRAcetam (KEPPRA) 500 MG tablet Indications: Seizure (HCC) Take 1 (one) tablet (500 mg total) by mouth 2 (two) times a day . 180 tablet 3 07/16/2024 Active Start: 09-10-2023 End: 09-11-2023 take 1 tablet by mouth every twelve hours levETIRAcetam 500 MG Tab SR 24 HR Take 1 tablet by mouth every 12 hours. 60 tablet 1 09/11/2023 09/11/2023 Discontinued (Stop Taking at Discharge) losartan potassium 50 mg oral tablet (20 sources) Angiotensin 2 Receptor Lewis Start: 09-11-2023 End: 10-29-2024 take 1 tablet by mouth once daily losartan (COZAAR) 50 MG tablet Indications: Essential hypertension, benign Take 1 (one) tablet (50 mg total) by mouth daily . 30 tablet 2 07/31/2024 10/29/2024 Active Start: 09-09-2023 End: 09-11-2023 take 25 mg by mouth once daily 25 mg, Oral, DAILY, Fir st dose on 09/09/23 at 1415, Until Discontinued omeprazole 40 mg delayed release oral capsule (7 sources) Proton Pump Inhibitor Start: 07-27-2024 take 1 capsule by mouth once daily omeprazole (PRILOSEC) 40 MG capsule Take 1 (one) capsule (40 mg total) by mouth daily . 07/27/2024 Active SITagliptin 50 mg oral tablet (10 sources) Dipeptidyl Peptidase 4 Inhibitor Start: 07-24-2024 take 1 tablet by mouth once daily Sitagliptin Phosphate (Januvia) 50 mg tablet Active 50 mg PO DAILY July 24, 2024 12:00am Start: 09-11-2023 End: 01-04-2024 take 1 tablet by mouth once daily sitagliptin (JANUVIA) 50 MG tablet Indications: Type 2 diabetes mellitus without complication, without long-term current use of insulin (HCC) Take 1 (one) tablet (50 mg total) by mouth daily . 30 tablet 2 10/06/2023 12/01/2023 Discontinued Completed/Discontinued Medications Medication Drug Class(es) Dates Sig (Normalized) Sig (Original) acyclovir 800 mg oral tablet (1 source) Herpesvirus Nucleoside Analog DNA Polymerase Inhibitor, Herpes Simplex Virus Nucleoside Analog DNA Polymerase Inhibitor, Herpes Zoster Virus Nucleoside Analog DNA Polymerase Inhibitor take 1 tablet by mouth five times daily acyclovir 800 mg Tablet, Ordered By: Aurelio Gray CNP Directions: 1 tablet oral five times daily allopurinol 300 mg oral tablet (1 source) Xanthine Oxidase Inhibitor take 1 tablet by mouth once daily allopurinol 300 mg Tablet Directions: 1 tablet oral daily amoxicillin 875 mg oral tablet (7 sources) Penicillin-class Antibacterial Start: 06-03-2024 End: 06-04-2024 take 1 tablet by mouth twice daily Amoxicillin 875 mg tablet Discontinued 875 mg PO TWICE A DAY June 03, 2024 12:00am June 04, 2024 8:48am ear infection amoxicillin 875 mg / clavulanate 125 mg oral tablet (3 sources) Penicillin-class Antibacterial Start: 07-27-2024 End: 08-16-2024 Amoxicillin-Pot Clavulanate 875-125 mg tablet Discontinued 1 {tbl} PO TWICE A DAY 4 0 July 27, 2024 12:00am August 16, 2024 2:43pm blood-glucose meter,continuous (Dexcom G7 Ben Day Artist) Misc (4 sources) Start: 03-04-2024 End: 06-14-2024 blood-glucose meter,continuous (Dexcom G7 Ben Day Artist) Misc 1 Device by Miscellaneous route daily . 1 each 03/04/2024 06/14/2024 Discontinued Start: 03-04-2024 blood-glucose meter,continuous (Dexcom G7 Ben Day Artist) Misc 1 Device by Miscellaneous route daily . 1 each 03/04/2024 Active blood-glucose meter,continuo us (FreeStyle Silke 3 [place]) Misc (6 sources) Start: 12-01-2023 End: 03-04-2024 blood-glucose meter,continuo us (FreeStyle Silke 3 [place]) Misc 1 Device by Miscellaneous route every 14 (fourteen) days . 1 each 12/01/2023 03/04/2024 Discontinued Start: 12-01-2023 blood-glucose meter,continuous (FreeStyle Silke 3 [place]) Misc 1 Device by Miscellaneous route every 14 (fourteen) days . 1 each 12/01/2023 Active blood-glucose sensor (Dexcom G7 Sensor) Annette (4 sources) Start: 03-04-2024 End: 06-14-2024 blood-glucose sensor (Dexcom G7 Sensor) Annette 1 Device by Miscellaneous route every 10 (ten) days . 9 each 3 03/04/2024 06/14/2024 Discontinued Start: 03-04-2024 blood-glucose sensor (Dexcom G7 Sensor) Annette 1 Device by Miscellaneous route every 10 (ten) days . 9 each 3 03/04/2024 Active blood-glucose sensor (FreeStyle Silke 3 Sensor) Annette (2 sources) Start: 12-01-2023 End: 12-01-2023 blood-glucose sensor (FreeStyle Silke 3 Sensor) Annette 1 Device by Miscellaneous route every 14 (fourteen) days . 2 each 11 12/01/2023 12/01/2023 Discontinued 24 hr buPROPion hydrochloride 300 mg extended release oral tablet (11 sources) Aminoketone Start: 10-08-2021 End: 10-06-2023 take 1 tablet by mouth once daily buPROPion (WELLBUTRIN XL) 300 MG 24 hr tablet Indications: Moderate recurrent major depression (HCC) Take 1 (one) tablet (300 mg total) by mouth daily . 30 tablet 5 04/08/2022 10/06/2023 Discontinued (Therapy completed) take 1 tablet by vlad th every twenty-four hours buPROPion HCl 150 mg Tablet Extended Release 24 hr Directions: 2 tablet oral daily calcium chloride 0.0014 meq/ ml / potassium chloride 0.004 meq/ml / sodium chloride 0.103 meq/ml / sodium lactate 0.028 meq/ml injectable solution (2 sources) Start: 09-08-2023 End: 09-09-2023 Intravenous, at 125 mL/hr, CONTINUOUS, Starting on Mon09/08/23 at 0430, Until 09/09/23 at 0810 Start: 09-08-2023 End: 09-08-2023 1,000 mL, Intravenous, ONCE, 1 dose, On Mon09/08/23 at 0300, Fluid Bolus carvedilol 25 mg oral tablet (1 source) alpha-Adrenergic Lewis, beta-Adrenergic Lewis take 1 tablet by mouth twice daily carvedilol 25 mg Tablet Directions: 1 tablet oral twice a day clindamycin 150 mg oral capsule (1 source) Lincosamide Antibacterial take 3 capsules by mouth three times daily clindamycin HCl 150 mg Capsule, Ordered By: Jarrod Navas CNP Directions: 3 capsule oral three times a day doxycycline hyclate 100 mg oral capsule (7 sources) Tetracycline-class Drug Start: 2023 End: 2024 take 1 capsule by mouth twice daily Doxycycline Hyclate 100 mg capsule Discontinued 100 mg PO TWICE A DAY November 01, 2023 12:00am June 03, 2024 2:44am 0.5 ml dulaglutide 1.5 mg/ml auto-injector (6 sources) GLP-1 Receptor Agonist Start: 2023 End: 2024 dulaglutide (Trulicity) 0.75 mg/0.5 mL Pen Inject 0.5 mL (0.75 mg total) under the skin every 7 days . 2 mL 11 12/01/2023 03/04/2024 Discontinued 0.4 ml enoxaparin sodium 100 mg/ml prefilled syringe (1 source) Low Molecular Weight Heparin Start: 2023 End: 2023 inject 40 mg by subcutaneous injection every twelve hours 40 mg, Subcutaneous, EVERY 12 HOURS, First dose on Mon09/08/23 at 0900, Until Discontinued, For SUBCUTANEOUS route ONLY: alternate injection sites between left and right abdominal wall, pinching location and avoiding area around navel. If unable to use abdominal sites, may use the front or side of thighs., Indications: DVT/PE prophylaxis glimepiride 2 mg oral tablet (2 sources) Sulfonylurea Start: 2022 End: 2023 take 1 tablet by mouth twice daily at mealtime glimepiride (AMARYL) 2 MG tablet Indications: Type 2 diabetes mellitus without complication, without long-term current use of insulin (HCC) Take 1 (one) tablet (2 mg total) by mouth 2 (two) times a day with meals . 60 tablet 5 04/09/2022 10/06/2023 Discontinued (Therapy completed) 1 ml hydrALAZINE hydrochloride 20 mg/ml injection (3 sources) Arteriolar Vasodilator Start: 2023 End: 2023 take 10 mg intravenously every six hours as needed 10 mg, Intravenous, EVERY 6 HOURS NEEDED, Starting on 09/10/23 at 1346, Until 09/11/23 at 1759, SBP > 180 mmHg Start: 09-08-2023 End: 09-10-2023 take 5 mg intravenously every six hours as needed 5 mg, Intravenous, EVERY 6 HOURS NEEDED, Starting on Mon09/08/23 at 0950, Until Mon09/10/23 at 1347, SBP > 180 mmHg take 3 tablets by mo [facility] twice daily hydrALAZINE 25 mg Tablet Directions: 3 tablet oral twice a day insulin glargine-yfgn (SEMGLEE) injection 18 Units (1 source) Start: 09-09-2023 End: 09-11-2023 insulin glargine-yfgn (SEMGLEE) injection 18 Units Insulin lispro (HUMALOG) injection (1 source) Start: 09-09-2023 End: 09-11-2023 Insulin lispro (HUMALOG) injection labetalol hydrochloride 5 mg/ml injectable solution (1 source) beta-Adrenergic Lewis Start: 09-10-2023 End: 09-11-2023 take 10 mg intravenously every six hours as needed 10 mg, Intravenous, EVERY 6 HOURS NEEDED, Starting on 09/10/23 at 1347, Until Mon09/11/23 at 1759, SBP > 180 mmHg with HR >60 bpm, Administration duration: up to 20 mg over 2 minutes. Telemetry required except for PRIZE COORDINATOR patients on [address] Floors 6 and 7. For vials: labetalol should be treated as a SINGLE USE VIAL. Discard remaining contents after one use. levETIRAcetam (KEPPRA) 4,500 mg in Sodium chloride 0.9%, with overfill 155 mL (total volume) IVPB (1 source) Start: 09-10-2023 End: 09-10-2023 4,500 mg, Intravenous, Administer over 15 Minutes, ONCE, 1 dose, On Mon09/10/23 at 1430 levothyroxine sodium 0.112 mg oral tablet (1 source) l-Thyroxine take 1 tablet by mouth once daily levothyroxine 112 mcg Tablet Directions: 1 tablet oral daily lisinopril 2.5 mg oral tablet (11 sources) Angiotensin Converting Enzyme Inhibitor Start: 09-08-2023 End: 09-09-2023 take 5 mg by mouth once daily 5 mg, Oral, DAILY, First dose on Mon09/08/23 at 1700, Until Discontinued Start: 04-08-2022 End: 10-06-2023 take 1 tablet by mouth once daily lisinopriL (PRINIVIL,ZESTRIL) 40 MG tablet Indications: Essential hypertension, benign Take 1 (one) tablet (40 mg total) by mouth daily . 30 tablet 5 04/08/2022 10/06/2023 Discontinued (Therapy completed) Start: 12-15-2021 End: 04-08-2022 take 1 tablet by mouth once daily lisinopriL (PRINIVIL,ZESTRIL) 20 MG tablet Indications: Essential hypertension, benign Take 1 (one) tablet (20 mg total) by mouth daily . 30 tablet 2 12/15/2021 04/08/2022 Discontinued (Reorder (Suppress CancelRx Message to Pharmacy)) Start: 10-08-2021 End: 01-06-2022 take 1 tablet by mouth once daily lisinopriL (PRINIVIL,ZESTRIL) 10 MG tablet Indications: Essential hypertension, benign Take 1 (one) tablet (10 mg total) by mouth daily . 30 tablet 2 10/08/2021 12/15/2021 Discontinued (Reorder (Suppress CancelRx Message to Pharmacy)) loratadine 10 mg oral tablet (1 source) take 1 tablet by mouth once daily loratadine 10 mg Tablet Directions: 1 tablet oral daily 1 ml LORazepam 2 mg/ml injection (1 source) Benzodiazepine Start: End: 1 mg, Intravenous, ONCE, 1 dose, On Mon09/08/23 at 0500, Give right before going to MRI Extravasation Risk Magnesium Oxide (1 source) Start: 4 End: magnesium oxide (MAG-OX) tablet 400-800 mg 24 hr metFORMIN hydrochloride 500 mg extended release oral tablet (11 sources) Biguanide Start: 2 End: take 2 tablets by mouth twice daily metFORMIN (GLUCOPHAGE-XR) 500 MG 24 hr tablet Indications: Type 2 diabetes mellitus without complication, without long-term current use of insulin (HCC) Take 2 (two) tablets (1,000 mg total) by mouth 2 (two) times a day . 120 tablet 5 04/08/2022 10/06/2023 Discontinued (Therapy completed) take 1 tablet by mouth twice bran ly metFORMIN 500 mg Tablet, Ordered By: Jarrod Navas CNP Directions: 1 tablet oral twice a day metoprolol tartrate 25 mg oral tablet (1 source) beta-Adrenergic Lewis Start: 09-09-2023 End: 09-10-2023 take 25 mg by mouth every twelve hours 25 mg, Oral, EVERY 12 HOURS, First dose on 09/09/23 at 0900, Until Discontinued Nicotine (1 source) Cholinergic Nicotinic Agonist Start: 09-08-2023 End: 09-11-2023 nicotine (NICODERM CQ) 14 MG/24HR patch 1 patch 24 hr NIFEdipine 30 mg extended release oral tablet (20 sources) Dihydropyridine Calcium Channel Lewis Start: 09-12-2023 End: 07-31-2024 take 1 tablet by mouth once daily Nifedipine 30 mg tablet extended release Discontinued 30 mg PO DAILY June 03, 2024 12:00am June 04, 2024 8:50am BP Start: 09-10-2023 End: 09-11-2023 take 30 mg by mouth once daily 30 mg, Oral, DAILY, Fir st dose on 09/10/23 at 1430, Until Discontinued, Slow release product. Do not chew or crush. Ondansetron (1 source) Serotonin-3 Receptor Antagonist Start: 09-08-2023 End: 09-11-2023 take 1 tablet by mouth every six hours as needed Ondansetron (ZOFRAN) tablet 4 mg phenol 14 mg/ml mucosal spray (1 source) Start: 09-08-2023 End: 09-11-2023 1 spray, Mouth/Throat, NEEDED, Starting on Mon09/08/23 at 0421, Until Mon09/11/23 at 1759, Sore Throat, Patient may self-administer. piroxicam 20 mg oral capsule (1 source) Nonsteroidal Anti-inflammatory Drug take 1 capsule by mouth once daily piroxicam 20 mg Capsule Directions: 1 capsule oral daily polyethylene glycol 3350 14005 mg powder for oral solution (1 source) Osmotic Laxative Start: 09-08-2023 End: 09-11-2023 17 g, Oral, DAILY, First dose on Mon09/08/23 at 1330, Until Discontinued Potassium Chloride (1 source) Start: 09-09-2023 End: 09-11-2023 Potassium chloride (K-DUR) tablet ER 20-80 mEq predniSONE 20 mg oral tablet (1 source) take 1 tablet by mouth once daily at breakfast predniSONE 20 mg Tablet, Ordered By: Aurelio Gray CNP Directions: 1 tablet oral daily with breakfast Prochlorperazine (1 source) Phenothiazine Start: 09-08-2023 End: 09-11-2023 take 1 tablet by mouth every six hours as needed Prochlorperazine (COMPAZINE) tablet 5 mg psyllium 3400 mg powder for oral suspension (7 sources) Start: 12-01-2023 End: 11-30-2024 take 1 dose by mouth once daily psyllium husk, with sugar, (METAMUCIL, KONSYL) 3.4 gram packet Take 1 (one) packet (3.4 g total) by mouth daily . 30 packet 11 12/01/2023 06/14/2024 Discontinued (Side effects) sennosides, alf 8.6 mg oral tablet (1 source) Start: 09-08-2023 End: 09-11-2023 take 8.6 mg by mouth once daily 8.6 mg, Oral, DAILY, First dose on Mon09/08/23 at 1330, Until Discontinued silver sulfADIAZINE 10 mg/ml topical cream (8 sources) Sulfonamide Antibacterial Start: 11-22-2023 End: 06-14-2024 silver sulfADIAZINE (SILVADENE) 1 % cream 11/22/2023 06/14/2024 Discontinued (Side effects) 1000 ml sodium chloride 9 mg/ml injection (1 source) Start: 09-08-2023 End: 09-11-2023 Intravenous, at 20 mL/hr, NEEDED, Starting on Mon09/08/23 at 0421, Until Mon09/11/23 at 1759, Carrier Fluid - See Admin. Inst, 250mL 0.9NS to be used as carrier fluid for intermittent small volume or piggyback medication administration as needed. Infusion rate of the carrier fluid should be set at 20 mL/hr unless the rate as the intermittent medication is less than 20 mL/hr. For intermittent medications with a rate less than 20 mL/hr set the carrier fluid at that rate of the intermittent or piggy back medication. Sodium-potassium phosphate (K-PHOS NEUTRAL) tablet 500-1,000 mg (1 source) Start: 09-09-2023 End: 09-11-2023 Sodium-potassium phosphate (K-PHOS NEUTRAL) tablet 500-1,000 mg Problems Active Problems Problem Classification Problem Date Documented Da te Episodic/Chronic Acute cerebrovascular disease (4 sources) Cerebrovascular accident; Translations: [Cerebral infarction, unspecified] Onset: 4 09-08-2023 Chronic Blindness and vision defects (19 sources) Visual impairment; Translations: [Unspecified visual loss] Onset: 4 11-03-2023 Chronic Cardiac dysrhythmias (18 sources) Paroxysmal atrial fibrillation; Translations: [Paroxysmal atrial fibrillation] Onset: 5 06-15-2024 Chronic Chronic obstructive pulmonary disease and bronchiectasis (3 sources) Chronic obstructive lung disease; Translations: [Chronic obstructive pulmonary disease, unspecified] 07-24-2024 Chronic Chronic ulcer of skin (6 sources) Non-pressure chronic ulcer of other part of right foot with unspecified severity; Translations: [Ulcer of other part of foot] Onset: 4 11-10-2023 Chronic Congestive heart failure; nonhypertensive (20 sources) Heart failure with normal ejection fraction; Translations: [Unspecified diastolic (congestive) heart failure] Onset: 5 07-02-2024 Chronic Diabetes mellitus with complications (20 sources) Hyperglycemia due to type 2 diabetes mellitus; Translations: [Type 2 diabetes mellitus with hyperglycemia] Onset: 4 10-25-2023 Chronic Diabetes mellitus without complication (20 sources) Type 2 diabetes mellitus without complication; Translations: [Type 2 diabetes mellitus without complications] Onset: 2 Chronic Disorders of lipid metabolism (20 sources) Pure hypercholesterolemia; Translations: [Pure hypercholesterolemia, unspecified] Onset: 2 Chronic Epilepsy; convulsions (1 source) Seizure disorder; Translations: [Epilepsy, unspecified, not intractable, without status epilepticus] 10-08-2023 Chronic Esophageal disorders (3 sources) Gastroesophageal reflux disease; Translations: [Gastro-esophageal reflux disease without esophagitis] 07-24-2024 Chronic Essential hypertension (20 sources) Benign essential hypertension; Translations: [Essential (primary) hypertension] Onset: 2 Chronic Gout and other crystal arthropathies (20 sources) Chronic gouty arthritis; Translations: [Idiopathic chronic gout, multiple sites, without tophus (tophi)] Onset: 2 Chronic Headache; including migraine (3 sources) Migraine; Translations: [Migraine, unspecified, not intractable, without status migrainosus] 07-24-2024 Chronic Hypertension with complications and secondary hypertension (7 sources) Hypertensive urgency ; Translations: [Hypertensive urgency] 09-15-2023 Chronic Intestinal obstruction without hernia (9 sources) Small bowel obstruction; Translations: [Unspecified intestinal obstruction, unspecified as to partial versus complete obstruction] Onset: 5 07-24-2024 Episodic Mood disorders (20 sources) Recurrent major depressive episodes, moderate ; Translations: [Major depressive disorder, recurrent, moderate] Onset: 2 Chronic Other connective tissue disease (7 sources) Muscle weakness of upper limb; Translations: [Muscle weakness (generalized)] 09-15-2023 Episodic Other gastrointestinal disorders (1 source) Incontinence of feces; Translations: [Full incontinence of feces] Episodic Other gastrointestinal disorders (20 sources) Pneumoperitoneum; Translations: [Other specified disorders of peritoneum] Onset: 4 09-11-2023 Episodic Other gastrointestinal disorders (4 sources) Other specified disorders of peritoneum; Translations: [Other specified disorders of peritoneum] Onset: 4 Episodic Other hematologic conditions (14 sources) Erythrocytosis; Translations: [Secondary polycythemia] 06-03-2024 Episodic Other infections; including parasitic (2 sources) Disorder due to infection; Translations: [Other superficial injuries of shoulder] 03-21-2021 Episodic Other lower respiratory disease (10 sources) Hypoxia; Translations: [Hypoxemia] 07-03-2024 Episodic Other lower respiratory disease (1 source) Hypoxemia; Translations: [Hypoxemia] Onset: 5 Episodic Other lower respiratory disease (1 source) Shortness of breath; Translations: [Shortness of breath] Onset: 5 Episodic Other nervous system disorders (2 sources) Ataxia; Translations: [Ataxia, unspecified] Episodic Other nervous system disorders (7 sources) Paresthesia of left upper limb; Translations: [Paresthesia of skin] 09-15-2023 Episodic Other nutritional; endocrine; and metabolic disorders (20 sources) Body mass index 40+ - severely obese; Translations: [Morbid (severe) obesity due to excess calories] Onset: 4 10-08-2023 Chronic Other nutritional; endocrine; and metabolic disorders (1 source) Severe obesity; Translations: [Morbid (severe) obesity due to excess calories] 10-25-2023 Chronic Other nutritional; endocrine; and metabolic disorders (1 source) Obesity; Translations: [Obesity, unspecified] Onset: 4 10-25-2023 Chronic Other nutritional; endocrine; and metabolic disorders (1 source) Morbid (severe) obesity due to excess calories; Translations: [Morbid (severe) obesity due to excess calories] Onset: 5 Chronic Other nutritional; endocrine; and metabolic disorders (1 source) Body mass index (BMI) 50.0-59.9, adult; Translations: [Body mass index [BMI] 50.0-59.9, adult] Onset: 5 Chronic Other nutritional; endocrine; and metabolic disorders (7 sources) History of hypercholesterolemia; Translations: [Personal history of other endocrine, nutritional and metabolic disease] 09-15-2023 Episodic Other nutritional; endocrine; and metabolic disorders (7 sources) H/O: diabetes mellitus; Translations: [Personal history of other endocrine, nutritional and metabolic disease] 09-15-2023 Episodic Other screening for suspected conditions (not mental disorders or infectious disease) (20 sources) Patient encounter status; Translations: [Encounter for screening for malignant neoplasm of colon] Onset: 4 Episodic Other skin disorders (3 sources) Eruption; Translations: [Eruption of Skin] 04-26-2020 Episodic Residual codes; unclassified (1 source) Hypersomnia; Translations: [Hypersomnia, unspecified] 10-25-2023 Chronic Skin and subcutaneous tissue infections (9 sources) Cellulitis; Translations: [Cellulitis] 03-21-2021 Episodic Thyroid disorders (4 sources) Acquired hypothyroidism; Translations: [Hypothyroidism, unspecified] Chronic Unclassified (2 sources) R SHOULDER PAIN 08-27-2021 Comment on above: R SHOULDER PAIN Unclassified (1 source) Shingles 08-27-2021 Unclassified (2 sources) Transition Of Care Onset: Viral infection (4 sources) Herpes zoster; Translations: [Herpes Zoster] 04-26-2020 Episodic Past or Other Problems Problem Classification Problem Date Documented Da te Episodic/Chronic Cardiac dysrhythmias (16 sources) Tachycardia; Translations: [Tachycardia, unspecified] Onset: 06-08-2024 06-03-2024 Episodic Epilepsy; convulsions (20 sources) Seizure; Translations: [Unspecified convulsions] Onset: 11-29-2023 10-25-2023 Episodic Fluid and electrolyte disorders (15 sources) Dehydration; Translations: [Dehydration] Onset: 06-08-2024 06-03-2024 Episodic Other aftercare (1 source) intermediate (current) use of insulin; Translations: [intermediate (current) use of insulin] Onset: 06-08-2024 Episodic Other connective tissue disease (20 sources) Spasm; Translations: [Other muscle spasm] Onset: 10-09-2021 Episodic Other hematologic conditions (1 source) Secondary polycythemia; Translations: [Secondary polycythemia] Onset: 06-08-2024 Episodic Other injuries and conditions due to external causes (1 source) Unspecified injury of right foot, subsequent encounter; Translations: [Unspecified injury of right foot, subsequent encounter] Onset: 11-26-2023 Episodic Otitis media and related conditions (15 sources) Infection of ear; Translations: [Otitis media, unspecified, unspecified ear] Onset: 06-08-2024 06-03-2024 Episodic Pulmonary heart disease (20 sources) Pulmonary embolism with pulmonary infarction; Translations: [Other pulmonary embolism without acute cor pulmonale] Onset: 06-08-2024 06-03-2024 Episodic Unclassified (1 source) Onset: 10-25-2023 10-25-2023 Results Test Name Value Interpretation Reference Range Facility MR/Tisha 09-23-2024 MR/[facility] Medical Records Department [address] [place] [address] PAT - Anesthesia 09/23/24 1258 MR#: [id number] Acct: [id number] Name: MAXWELL SANDHU Rep #: [id number] : 1970 54 From: Frank Han MD PCP: Dr. Curtis Hernandez MD Status:PRE SDC Y Race: C Location: EN Pre-Assessment Diagnosis/Proposed Procedure Planned Operative Procedure(s): EGD,COLONOSCOPY Anesthesia History Anesthesia History - wool sorter: Anesthesia History - wool sorter Hx Hospitalization Yes: 07/2024 CHF, AFIB; 09/23/24 09:25 PULMONARY EMBOLISM; AIR POCKET IN ABD Any Problems With Anesthesia No 09/23/24 09:25 Cholinesterase deficiency No 09/23/24 09:25 You/Your Family Experience No 09/23/24 09:25 fever (hyperthermia) with Relationship Recent Exposure to Contagious Disease Does patient have nerve No 09/23/24 09:25 stimulator Patient instructed to have device shut off --Does patient have Pacemaker or ICD? When Was Last Pacemaker Check QUESTION #4 FULL TEXT: You/Your Family Experience fever (hyperthermia) with Anesthesia Last Oral Intake Last Oral intake: Last Oral Intake NPO since Meds taken in AM with sips of water? Meds patient instructed to take am of surgery PONV PONV - wool sorter: PONV - wool sorter Female No 09/23/24 09:25 HX of Motion Sickness No 09/23/24 09:25 HX of N/V After Surgery No 09/23/24 09:25 Non-Smoker Yes 09/23/24 09:25 Duration of Surgery greater No 09/23/24 09:25 than 60 minutes Number of Risk Factors 1 09/23/24 09:25 PONV Score Low Risk 09/23/24 09:25 Height Weight Height Weight: Anesthesia: Height Weight Height 5 ft 9 in 08/16/24 14:41 Respiratory Assessment Respiratory Assessment - wool sorter: Respiratory Tract Infection Hx - wool sorter Hx Respiratory Tract Infection No 09/23/24 09:25 STOP Sleep Apnea STOP Sleep Apnea - wool sorter: STOP Sleep Apnea - wool sorter Hx Hypertension Yes 09/23/24 09:25 Hx Sleep Apnea Yes 09/23/24 09:25 CPAP No 09/23/24 09:25 BIPAP No 09/23/24 09:25 Do you snore loudly (louder than talking or can be heard Do you often feel tired/ fatigued/ sleepy during daytime? Has anyone observed you stop breathing during sleep? STOP Results Positive 09/23/24 09:25 QUESTION #5 FULL TEXT : Do you snore loudly (louder than talking or can be heard through closed doors)? Tobacco Use History Tobacco Use History - wool sorter: Tobacco Use History - wool sorter Tobacco Use Smoking Status Never smoker 09/23/24 09:25 Hx Tobacco Use Yes: chew 09/23/24 09:25 Years Smoking Packs Smoked per Day Smoking Cessation Date was within the last 15 years Hx Smoking Cessation Date Hx Smoking Cessation Counseling Hematologic Medial History Hematologic Hx - wool sorter: Hematologic Medical Hx - track dresser Hx of Blood Transfusion No 09/23/24 09:25 Hx of Transfusion in last 3 No 09/23/24 09:25 Months Date of Last Transfusion (if within last 3 months) Ever experience any problems No 09/23/24 09:25 with transfusion(s)? Specify any problems Hx of Preganancy in last 3 N/A 09/23/24 09:25 Months Nurse Filling Out Transfusion TRAVIS 09/23/24 09:25 Questions: Date: 09/23/24 09/23/24 09:25 Time: :09/23/24 09:25 Patient unable to answer at this time (ie. confused, unrespo /Reproduction History /Reproductive History - wool sorter: /Reproductive Hx- wool sorter Hx Now No 09/23/24 09:25 Gestational Age (in weeks): EDC: Hx Hx Para Hx Section SAB No 09/23/24 09:25 PFSH Medical History (Updated 09/23/24 @ 09:38 by April Lopez) Wears glasses Anxiety Uses wheelchair Arthritis Gout History of pulmonary embolism Injury of head and neck Gastric reflux Chews tobacco History of edema History of echocardiogram Cardiology follow-up encounter History of CHF (congestive heart failure) History of atrial fibrillation Cervical vertebral fusion Seizure Migraine Hypothyroidism Hyperlipidemia GERD (gastroesophageal reflux disease) Essential hypertension Depression COPD (chronic obstructive pulmonary disease) (HFpEF) heart failure with preserved ejection fraction Sleep apnea Seizures Stroke/cerebrovascular accident Hypertension High cholesterol Diabetes Home Medications ???Medication ???Instructions ???Recorded ???Last Taken ???Type aspirin 81 mg chewable tablet 1 tab PO DAILY [facility] 07/23/24 History insulin lispro 100 unit/mL 10 unit mosher (more content not included)... Normal [facility] Surgery Visit Reporton 08-16 Surgery Visit Report [facility] [address] [place] [address] OFFICE VISIT Date of Service: 08/16/24 MR#: [id number] Acct: [id number] Name: TRINIDADMAXWELL Rep #: [id number] : 1970 Provider: Dr. Maxwell palma MD Age/Sex: 54/M Location: [facility] Status: Signed Intake Vital Signs 07/25/24 11:52 08/16/24 14:41 Height 5 ft 9 in 5 ft 9 in Weight: 349 lb BMI 51.5 Body Surface Area 0 BP 128/84 H Blood Pressure Location Rt brachial Position Sitting Respiration 18 Pulse 64 Pulse Source Monitor Temp 97.2 F L Temp Source Temporal Pulse Oximetry (%) 97 Oxygen Delivery Method room air Intake Visit Reasons: HOSPITAL F/U- DISCUSS UPPER AND LOWER Chief Complaint: hospital f/u- discuss upper and lower Is patient in pain?: No Allergies No Known Allergies Allergy (Verified 08/16/24 14:42) Medications ???Medication ???Instructions ???Recorded ???Confirmed ???Type aspirin 81 mg chewable tablet 1 tab PO DAILY [facility] 08/16/24 History insulin lispro 100 unit/mL 10 unit subcut TID diabetes #15 mL 06/04/24 08/16/24 Rx subcutaneous pen furosemide 40 mg tablet 40 mg PO DAILY 30 days #30 tabs 08/16/24 Rx alcohol swabs (Alcohol Prep Pads) 1 pad topical 4X/DAY 07/24/2412/31 History blood-glucose meter (OneTouch #1 ea 07/24/24 08/16/24 History Verio Flex Meter) diltiazem HCl 120 mg 120 mg PO Q12H 07/24/24 08/16/24 H istory capsule,extended release 24 hr glucagon 1 mg solution for 1 mg IM PRN 07/24/24 08/16/24 Hist ory injection (Glucagon Emergency Kit) insulin glargine 100 unit/mL (3 30 unit subcut DAILY diabetes 07/0708/16/24 History mL) subcutaneous pen (Lantus Solostar U-100 Insulin) lancets 30 gauge (OneTouch Delica #100 ea 07/24/24 08/16/24 History Plus Lancet) nifedipine 30 mg tablet,extended 30 mg PO DAILY 07/24/24 08/16/24 H istory release sitagliptin phosphate 50 mg tablet 50 mg PO DAILY 07/24/24 08/16/24 History (Januvia) omeprazole 40 mg capsule,delayed 40 mg PO DAILY #30 caps 07/27/24 0 08/16/24 Rx release apixaban 5 mg tablet 5 mg PO BID #60 tabs 08/08/2408/06 Rx atorvastatin 40 mg tablet 40 mg PO QDAY 08/16/24 08/16/24 Hi story losartan 50 mg tablet 50 mg PO QDAY 08/16/24 08/16/24 Hi story PFSH Medical History Cervical vertebral fusion Seizure Migraine Hypothyroidism Hyperlipidemia GERD (gastroesophageal reflux disease) Essential hypertension Depression COPD (chronic obstructive pulmonary disease) (HFpEF) heart failure with preserved ejection fraction Sleep apnea Seizures Stroke/cerebrovascular accident Hypertension High cholesterol Diabetes Surgical History H/O arthroscopy of knee Hx of arthroscopic knee surgery Hx of neck surgery Family History Other Heart disease Social History household members: spouse and family housing: house Smoking Status: Never smoker Smokeless tobacco user: snuff HPI HPI HPI: Patient is a 54-year-old male who was recently in the hospital with free air. The patient was treated with a PPI and discharged home. He reports that on a PPI he feels much better with less bloating and less gas and no reflux. He reports no abdominal pain. ROS General General: Yes weight change; No appetite, fatigue, colon cancer, breast cancer or weakness HEENT HEENT: No difficulty swallowing, eye injury, eye surgery, swollen glands or hoarseness Endo Endocrine: Yes diabetes mellitus; No thyroid disease, thyroid cancer, Hair loss, heat intolerance or cold intolerance Skin Skin: No rash or changing moles Musc Musculoskeletal: Yes back problems and gout; No arthritis, rheumatoid arthritis or joint pain Cardio Cardiovascular: Yes heart disease, atrial fibrillation and high blood pressure; No murmur, pacemaker, heart attack, heart stent, palpitations, shortness of breath with exertion or chest pain Psych Psychiatric: Yes depression and anxiety; No hearing voices Resp Respiratory: No shortness of breath, Yes sleep apnea, No cough, No COPD, No asthma, No emphysema and No wheezing Gastro Gastrointestinal: No abdominal pain, No nausea or vomiting, Yes diarrhea, Yes constipation, No blood in stool, Yes acid reflux, No hemorrhoids, No ulcers, No gallbladder problem and No black,tarry stools Tommy Hematologic: Yes blood thinners, No blood disorders, No bleeding, No anemia and Yes blood clots Neuro Neurologic: No numbness, No tingling and No weakness Exam Const Gener (more content not included)... Normal [facility] Bedside Glucoseon 07-27-2024 FINGERSTICK GLU 179 mg/dL High 74-106 [facility] Comment on above: Result Comment: [facility] OF PATIENT CARE PER NURSING PROTOCOL Performed By: #### L 501.080 #### [facility] [address] [place], [place], [id number] Glucose measurement at [facility] deOrdered By: Maxwell Ricardo on 07-27-2024 Glucose [Mass/Vol] 179 mg/dL High 74-106 [facility] Comment on above: MANAGEMENT OF PATIEN T CARE PER NURSING PROTOCOL Absolute lymphocyte countOrd ered By: Jamaica James on 07-26-2024 Lymphocytes Auto (Unsp spec) [#/Vol] 1.36 10*3/uL 0.83-4.51 [facility] Absolute neutrophil countOrd ered By: Jamaicakym James on 07-26-2024 Neutrophils (Bld) [#/Vol] 4.6 10*3/uL 2.0-7.7 [facility] Anion gap in Serum or Plasma Ordered By: Jamaicakym James on 07-26-2024 Anion gap [Moles/Vol] 10 mmol/L 06-20 [facility] Automated lymphocyte count a s percentage of total leukocytesOrdered By: Jamaicakym James on 07-26-2024 Lymphocytes/100 WBC Auto (Unsp spec) 19.3 % [facility] BUN/creatinine ratioOrdered By: [facility] on 07-26-2024 Urea nitrogen/Creatinine [Mass ratio] 12.4 mg/mg 11-25 [facility] Basic Metabolic Profile (BMP )on 07-26-2024 BUN/CRE 12.4 RATIO Normal 11-25 [facility] Comment on above: Performed By: #### L 501.080 #### [facility] [address] [place], [address] Calcium [Mass/Vol] 8.2 mg/dL Normal 7.6-11.0 [facility] Comment on above: Performed By: #### L 501.080 #### [facility] [address] [place], [address] Chloride [Moles/Vol] 107 mmol/L Normal 98-108 [facility] Comment on above: Performed By: #### L 501.080 #### [facility] [address] [place], [address] CO2 [Moles/Vol] 23.1 mmol/L Normal 21.0-32.0 [facility] Comment on above: Performed By: #### L 501.080 #### [facility] [address] [place], [address] Creatinine [Mass/Vol] 0.54 mg/dL Low 0.70-1.20 [facility] Comment on above: Performed By: #### L 501.080 #### [facility] [address] [place], [address] ECRCL 231.85 ml/min Normal 50-250 [facility] Comment on above: Performed By: #### L 501.080 #### [facility] [address] [place], [address] GAP 10 Normal 5-15 [facility] Comment on above: Performed By: #### L 501.080 #### [facility] [address] [place], [address] GFR/1.73 sq M.predicted among non-blacks MDRD (S/P/Bld) [Vol rate/Area] 119 mL/min/{1.73_m2} Normal >60 [facility] Comment on above: Result Comment: mL/m in/1.73m2 CKD-EPI Creatinine Equation (2020) Performed By: #### L 501.080 #### [facility] [address] [place], [address] Glucose [Mass/Vol] 135 mg/dL High 70-99 [facility] Comment on above: Performed By: #### L 501.080 #### [facility] [address] [place], [address] Potassium [Moles/Vol] 3.4 mmol/L Normal 3.3-5.1 [facility] Comment on above: Performed By: #### L 501.080 #### [facility] [address] [place], [address] Sodium [Moles/Vol] 140 mmol/L Normal 133-145 [facility] Comment on above: Performed By: #### L 501.080 #### [facility] [address] [place], [address] Urea nitrogen [Mass/Vol] 7 mg/dL Normal 4-19 [facility] Comment on above: Performed By: #### L 501.080 #### [facility] [address] [place], [address] Basophil percentageOrdered B y: Jamaica James on 07-26-2024 Basophils/100 WBC (Bld) 0.6 % 0-1 [facility] Bedside Glucoseon 07-26-2024 FINGERSTICK GLU 229 mg/dL High 74-106 [facility] Comment on above: Result Comment: SYLVESTER GEMENT OF PATIENT CARE PER NURSING PROTOCOL Performed By: #### L 501.080 #### [facility] [address] [place], [address] FINGERSTICK GLU 212 mg/dL High -106 [facility] Comment on above: Result Comment: SYLVESTER GEMENT OF PATIENT CARE PER NURSING PROTOCOL Performed By: #### L 400.0001 #### [facility] [address] [place], [address] FINGERSTICK GLU 227 mg/dL High -106 [facility] Comment on above: Result Comment: SYLVESTER GEMENT OF PATIENT CARE PER NURSING PROTOCOL Performed By: #### L 501.080 #### [facility] [address] [place], [address] FINGERSTICK GLU 155 mg/dL High -106 [facility] Comment on above: Result Comment: SYLVESTER GEMENT OF PATIENT CARE PER NURSING PROTOCOL Performed By: #### L 501.080 #### [facility] [address] [place], [address] CBC W/Diff, Automatedon 06-2 0-2024 Absolute Lymph 1.36 X10 3/uL Normal 0.83-4.51 [facility] Comment on above: Performed By: #### L [id number] #### [facility] [address] [place], [address] Absolute Neut 4.6 X10 3/uL Normal 2.0-7.7 [facility] Comment on above: Performed By: #### L 501.080 #### [facility] [address] [place], [address] Basophils/100 WBC (Bld) 0.6 % Normal 0-1 [facility] Comment on above: Performed By: #### L 501.080 #### [facility] [address] [place], [address] Eosinophils/100 WBC (Bld) 5.4 % High 0-5 [facility] Comment on above: Performed By: #### L 501.080 #### [facility] [address] [place], [address] Erythrocyte distribution width (RBC) [Ratio] 13.9 % Normal 11.6-14.6 [facility] Comment on above: Performed By: #### L 501.080 #### [facility] [address] [place], [address] Hematocrit (Bld) [Volume fraction] 43.9 % Normal 40-54 [facility] Comment on above: Performed By: #### L 501.080 #### [facility] [address] [place], [address] Hemoglobin (Bld) [Mass/Vol] 14.3 g/dL Normal 13.0-16.5 [facility] Comment on above: Performed By: #### L 501.080 #### [facility] [address] [place], [address] IG% 0.400 Normal 0.0-0.9 [facility] Comment on above: Result Comment: IG% - Immature Granulocytes (promyelocytes, myelocytes and metamyelocytes) > 1% indicates that a LEFT SHIFT is Present. Performed By: #### L 501.080 #### [facility] [address] [place], [address] Lymphocytes/100 WBC (Bld) 19.3 % Normal 19-41 [facility] Comment on above: Performed By: #### L 501.080 #### [facility] [address] [place], [address] MCH (RBC) [Entitic mass] 26.1 pg Low 27.0-32.0 [facility] Comment on above: Performed By: #### L 501.080 #### [facility] [address] [place], [address] MCHC (RBC) [Mass/Vol] 32.6 g/dL Normal 32-36 [facility] Comment on above: Performed By: #### L 501.080 #### [facility] [address] [place], [address] MCV (RBC) [Entitic vol] 80.1 fL Normal 80-94 [facility] Comment on above: Performed By: #### L 501.080 #### [facility] [address] [place], [address] Monocytes/100 WBC (Bld) 8.8 % Normal 0-10 [facility] Comment on above: Performed By: #### L 501.080 #### [facility] [address] [place], [address] Neutrophils/100 WBC (Bld) 65.5 % Normal 47-70 [facility] Comment on above: Performed By: #### L 501.080 #### [facility] [address] [place], [address] Nucleated RBC (Bld) [#/Vol] 0 10*3/uL Normal 0-5 [facility] Comment on above: Performed By: #### L 501.080 #### [facility] [address] [place], [address] Platelet mean volume (Bld) [Entitic vol] 10.6 fL Normal 6.2-12.0 [facility] Comment on above: Performed By: #### L 501.080 #### [facility] [address] [place], [address] Platelets (Bld) [#/Vol] 149 10*3/uL Low 150-450 [facility] Comment on above: Performed By: #### L 501.080 #### [facility] [address] [place], [address] RBC (Bld) [#/Vol] 5.48 10*6/uL Normal 4.6-6.2 [facility] Comment on above: Performed By: #### L 501.080 #### [facility] [address] [place], [address] RDW SD 40.0 fl Normal 35.1-43.9 [facility] Comment on above: Performed By: #### L 501.080 #### [facility] [address] [place], [address] WBC (Bld) [#/Vol] 7.0 10*3/uL Normal 4.4-11.0 [facility] Comment on above: Performed By: #### L 501.080 #### [facility] [address] [place], [address] Carbon dioxide, total [Moles /volume] in Central venous bloodOrdered By: Jamaica James on 07-26-2024 CO2 [Moles/Vol] 23.1 mmol/L 21.0-32.0 [facility] Chloride assayOrdered By: Bal James on 07-26-2024 Chloride [Moles/Vol] 107 mmol/L 98-108 [facility] Eosinophil percentageOrdered By: Jamaica James on 07-26-2024 Eosinophils/100 WBC (Bld) 5.4 % High 0-5 [facility] Erythrocyte distribution wid th ratioOrdered By: Jamaica James on 07-26-2024 Erythrocyte distribution width (RBC) [Ratio] 13.9 % 11.6-14.6 [facility] Erythrocyte distribution wid th standard deviationOrdered By: Jamaica James on 07-26-2024 Erythrocyte distribution width (RBC) [Ratio] 40.0 fl 35.1-43.9 [facility] Glomerular filtration rate ( GFR) estimation/1.73 sq m using serum, plasma, or whole bOrdered By: Jamaica James on 07-26-2024 GFR/1.73 sq M.predicted among non-blacks MDRD (S/P/Bld) [Vol rate/Area] 119 mL/min/{1.73_m2} >60 [facility] Comment on above: mL/min/1.73m2 CKD-EP I Creatinine Equation (2020) Hematocrit Auto (Bld) [Volum e fraction]Ordered By: Jamaicakym James on 07-26-2024 Hematocrit (Bld) [Volume fraction] 43.9 % 40-54 [facility] Hemoglobin measurementOrdere d By: Jamaica James on 07-26-2024 Hemoglobin (Bld) [Mass/Vol] 14.3 g/dL 13.0-16.5 [facility] Immature granulocytes/100 WB C Auto (Bld)Ordered By: Jamaicakym James on 07-26-2024 Immature granulocytes/100 WBC (Bld) 0.400 % 0.0-0.9 [facility] Comment on above: IG% - Immature Granu locytes (promyelocytes, myelocytes and metamyelocytes) > 1% indicates that a LEFT SHIFT is Present. MCV (mean corpuscular volume ) determinationOrdered By: Jamaica James on 07-26-2024 MCV (RBC) [Entitic vol] 80.1 fL 80-94 [facility] Magnesiumon 07-26-2024 Magnesium [Mass/Vol] 2.1 mg/dL Normal 1.5-2.2 [facility] Comment on above: Performed By: #### L 501.080 #### [facility] [address] [place], [address] Magnesium measurement (mass/ volume)Ordered By: Jamaica James on 07-26-2024 Magnesium (Unsp spec) [Mass/Vol] 2.1 mg/dL 1.5-2.2 [facility] Mean corpuscular hemoglobin (MCH) determinationOrdered By: Jamaica James on 07-26-2024 MCH (RBC) [Entitic mass] 26.1 pg Low 27.0-32.0 [facility] Mean corpuscular hemoglobin concentration (MCHC) determinationOrdered By: Jamaica James on 07-26-2024 MCHC (RBC) [Mass/Vol] 32.6 g/dL 32-36 [facility] Mean platelet volume determi nationOrdered By: Jamaica James on 07-26-2024 Platelet mean volume (Bld) [Entitic vol] 10.6 fL 6.2-12.0 [facility] Monocyte percentageOrdered B y: Jamaica James on 07-26-2024 Monocytes/100 WBC (Bld) 8.8 % 0-10 [facility] Neutrophil percentageOrdered By: Jamaica James on 07-26-2024 Neutrophils/100 WBC (Bld) 65.5 % 47-70 [facility] Nucleated red blood cell per centageOrdered By: Jamaica James on 07-26-2024 Nucleated RBC/100 WBC (Bld) [Ratio] 0 % 0-5 [facility] Platelet countOrdered By: Bal James on 07-26-2024 Platelets (Bld) [#/Vol] 149 10*3/uL Low 150-450 [facility] Potassium measurement (mass/ volume)Ordered By: Jamaica James on 07-26-2024 Potassium (Unsp spec) [Mass/Vol] 3.4 mmol/L 3.3-5.1 [facility] RBC Auto (Bld) [#/Vol]Ordere d By: Jamaica James on 07-26-2024 RBC (Bld) [#/Vol] 5.48 10*6/uL 4.6-6.2 [facility] Serum creatinine measurement (mass/volume)Ordered By: Jamaica James on 07-26-2024 Creatinine [Mass/Vol] 0.54 mg/dL Low 0.70-1.20 [facility] Serum glucose measurement (m ass/volume)Ordered By: Jamaica James on 07-26-2024 Glucose [Mass/Vol] 135 mg/dL High 70-99 [facility] Serum or plasma calcium gloria urement (mass/volume)Ordered By: Jamaica James on 07-26-2024 Calcium [Mass/Vol] 8.2 mg/dL 7.6-11.0 [facility] Serum or plasma urea nitroge n measurement (mass/volume)Ordered By: Jamaica James on 07-26-2024 Urea nitrogen [Mass/Vol] 7 mg/dL 4-19 [facility] Sodium levelOrdered By: Mercy James on 07-26-2024 Sodium [Moles/Vol] 140 mmol/L 133-145 [facility] White blood cell (WBC) count Ordered By: Jamaica James on 07-26-2024 WBC (Bld) [#/Vol] 7.0 10*3/uL 4.4-11.0 [facility] Basic Metabolic Profile (BMP )on 07-25-2024 BUN/CRE 21.1 RATIO High 10-20 [facility] Comment on above: Performed By: #### L 501.080 #### [facility] [address] [place], [address] Calcium [Mass/Vol] 8.4 mg/dL Normal 7.6-11.0 [facility] Comment on above: Performed By: #### L 501.080 #### [facility] [address] [place], [address] Chloride [Moles/Vol] 107 mmol/L Normal 98-108 [facility] Comment on above: Performed By: #### L 501.080 #### [facility] [address] [place], [address] CO2 [Moles/Vol] 21.9 mmol/L Normal 21.0-32.0 [facility] Comment on above: Performed By: #### L 501.080 #### [facility] [address] [place], [address] Creatinine [Mass/Vol] 0.66 mg/dL Low 0.70-1.20 [facility] Comment on above: Performed By: #### L 501.080 #### [facility] [address] [place], [address] ECRCL 189.73 ml/min Normal 50-250 [facility] Comment on above: Performed By: #### L 501.080 #### [facility] [address] [place], [address] GAP 12 Normal 5-15 [facility] Comment on above: Performed By: #### L 501.080 #### [facility] [address] [place], [address] GFR/1.73 sq M.predicted among non-blacks MDRD (S/P/Bld) [Vol rate/Area] 111 mL/min/{1.73_m2} Normal >60 [facility] Comment on above: Result Comment: mL/m in/1.73m2 CKD-EPI Creatinine Equation (2020) Performed By: #### L 501.080 #### [facility] [address] [place], [address] Glucose [Mass/Vol] 115 mg/dL High 70-99 [facility] Comment on above: Performed By: #### L 501.080 #### [facility] [address] [place], [address] Potassium [Moles/Vol] 3.1 mmol/L Low 3.3-5.1 [facility] Comment on above: Performed By: #### L 501.080 #### [facility] [address] [place], [address] Sodium [Moles/Vol] 141 mmol/L Normal 133-145 [facility] Comment on above: Performed By: #### L 501.080 #### [facility] [address] [place], [address] Urea nitrogen [Mass/Vol] 14 mg/dL Normal 4-19 [facility] Comment on above: Performed By: #### L 501.080 #### [facility] [address] [place], [address] Bedside Glucoseon --2024 FINGERSTICK GLU 162 mg/dL High 74-106 [facility] Comment on above: Result Comment: SYLVESTER GEMENT OF PATIENT CARE PER NURSING PROTOCOL Performed By: #### L 501.080 #### [facility] [address] [place], [address] FINGERSTICK GLU 149 mg/dL High 74-106 [facility] Comment on above: Result Comment: SYLVESTER GEMENT OF PATIENT CARE PER NURSING PROTOCOL Performed By: #### L 501.080 #### [facility] [address] [place], [address] CBC W/Diff, Automatedon 06- Absolute Lymph 1.06 X10 3/uL Normal 0.83-4.51 [facility] Comment on above: Performed By: #### L 501.080 #### [facility] [address] [place], [address] Absolute Neut 4.0 X10 3/uL Normal 2.0-7.7 [facility] Comment on above: Performed By: #### L 501.080 #### [facility] [address] [place], [address] Basophils/100 WBC (Bld) 0.7 % Normal 0-1 [facility] Comment on above: Performed By: #### L 501.080 #### [facility] [address] [place], [address] Eosinophils/100 WBC (Bld) 3.4 % Normal 0-5 [facility] Comment on above: Performed By: #### L 501.080 #### [facility] [address] [place], [address] Erythrocyte distribution width (RBC) [Ratio] 14.4 % Normal 11.6-14.6 [facility] Comment on above: Performed By: #### L 501.080 #### [facility] [address] [place], [address] Hematocrit (Bld) [Volume fraction] 43.8 % Normal 40-54 [facility] Comment on above: Performed By: #### L 501.080 #### [facility] [address] [place], [address] Hemoglobin (Bld) [Mass/Vol] 14.0 g/dL Normal 13.0-16.5 [facility] Comment on above: Performed By: #### L 501.080 #### [facility] [address] [place], [address] IG% 0.500 Normal 0.0-0.9 [facility] Comment on above: Result Comment: IG% - Immature Granulocytes (promyelocytes, myelocytes and metamyelocytes) > 1% indicates that a LEFT SHIFT is Present. Performed By: #### L 501.080 #### [facility] [address] [place], [address] Lymphocytes/100 WBC (Bld) 18.0 % Low 19-41 [facility] Comment on above: Performed By: #### L 501.080 #### [facility] [address] [place], [address] MCH (RBC) [Entitic mass] 26.0 pg Low 27.0-32.0 [facility] Comment on above: Performed By: #### L 501.080 #### [facility] [address] [place], [address] MCHC (RBC) [Mass/Vol] 32.0 g/dL Normal 32-36 [facility] Comment on above: Performed By: #### L 501.080 #### [facility] [address] [place], [address] MCV (RBC) [Entitic vol] 81.3 fL Normal 80-94 [facility] Comment on above: Performed By: #### L 501.080 #### [facility] [address] [place], [address] Monocytes/100 WBC (Bld) 9.7 % Normal 0-10 [facility] Comment on above: Performed By: #### L 501.080 #### [facility] [address] [place], [address] Neutrophils/100 WBC (Bld) 67.7 % Normal 47-70 [facility] Comment on above: Performed By: #### L 501.080 #### [facility] [address] [place], [address] Nucleated RBC (Bld) [#/Vol] 0 10*3/uL Normal 0-5 [facility] Comment on above: Performed By: #### L 501.080 #### [facility] [address] [place], [address] Platelet mean volume (Bld) [Entitic vol] 11.4 fL Normal 6.2-12.0 [facility] Comment on above: Performed By: #### L 501.080 #### [facility] [address] [place], [address] Platelets (Bld) [#/Vol] 161 10*3/uL Normal 150-450 [facility] Comment on above: Performed By: #### L 501.080 #### [facility] [address] [place], [address] RBC (Bld) [#/Vol] 5.39 10*6/uL Normal 4.6-6.2 [facility] Comment on above: Performed By: #### L 501.080 #### [facility] [address] [place], [address] RDW SD 41.9 fl Normal 35.1-43.9 [facility] Comment on above: Performed By: #### L 501.080 #### [facility] [address] [place], [address] WBC (Bld) [#/Vol] 5.9 10*3/uL Normal 4.4-11.0 [facility] Comment on above: Performed By: #### L 501.080 #### [facility] [address] [place], [address] Abdomen/Pel W ORAL Cont Only on 07-24-2024 Abdomen/Pel W ORAL Cont Only [facility] [address] [place] [address] Abdomen/Pel W ORAL Cont Only MR#: [id number] Acct: [id number] Name: MAXWELL SANDHU Rep #: [id number] : 1970 M 54 From: Grant marquez MD PCP: Dr. Curtis Hernandez MD Status: ADM IN Study: Abdomen/Pel W ORAL Cont Only Date of Exam: Exam# [id number] Ordering Dr: Des Barillas DO PROCEDURE: ABDOMEN/PEL W ORAL CONT ONLY 07/24/2024 REASON FOR EXAM: ABDOMINAL PAIN TECHNIQUE: ABDOMEN/PEL W ORAL CONT ONLY Noncontrast technique limits evaluation of the abdominal and pelvic viscera. Coronal and Sagittal reconstruction series were provided. One or more dose reduction techniques were used (e.g., Automated exposure control, adjustment of the mA and/or kV according to patient size, use of iterative reconstruction technique). Dose report: CTDI L volume: 23.97. DLP: 1419.55 mGy. ORAL CONTRAST TYPE: Gastrografin. COMPARISON: Comparison is made with prior study done earlier in the day. FINDINGS: Free intraperitoneal air. The non was evidence of an orogastric tube. Contrast is seen within the stomach and small bowel loops. Lung bases: Mild dependent atelectasis Liver: Normal size. No obvious mass. Gallbladder: Layering gallstones along the dependent portion of the gallbladder lumen. Spleen: Unremarkable Pancreas: Diffuse fatty atrophy. Adrenals: Small adenoma in the crux of the left adrenal gland. Kidneys: No urolithiasis. No hydronephrosis. Bladder: Unremarkable Bowel: There is less small bowel distention at this time. Sigmoid diverticulosis. Peritoneum / Retroperitoneum: Bones: Degenerative changes of the spine. CT/Abdomen/Pel W ORAL Cont Only IMPRESSION: Persistent intraperitoneal air. Orogastric tube has been placed. There is less distention of the small bowel loops at this time. Small gallstones. Reading Location: [place] [address] CC: Dr. Des Barillas DO; Dr. Curtis Hernandez MD [employer] Worker: Signed Normal [facility] Abdomen/Pelvis W IV Cont ONL Yon 07-24-2024 Abdomen/Pelvis W IV Cont ONLY [facility] [address] [place] [id number] Abdomen/Pelvis W IV Cont ONLY MR#: [id number] Acct: [id number] Name: MAXWELL SANDHU Rep #: [id number] : 1970 M 54 From: Grant marquez MD PCP: Dr. Curtis Hernandez MD Status: [facility] Study: Abdomen/Pelvis W IV Cont ONLY Date of Exam: Exam# [id number] Ordering Dr: Des Barillas DO PROCEDURE: ABDOMEN/PELVIS W IV CONT ONLY 07/24/2024 REASON FOR EXAM: ABDOMINAL PAIN Nausea and vomiting. TECHNIQUE: ABDOMEN/PELVIS W IV CONT ONLY. Coronal and Sagittal reconstruction series were provided. ORAL CONTRAST TYPE: None. CONTRAST: Isovue-300 VOLUME: 100 mL One or more dose reduction techniques were used (e.g., Automated exposure control, adjustment of the mA and/or kV according to patient size, use of iterative reconstruction technique. RADIATION DOSE SUMMARY: CTDlvol: 15.5 mGy DLP: 1422.95 mGycm COMPARISON: Prior study dated September 07, 2023. FINDINGS: Lung bases: Mild dependent atelectasis. Calcified granuloma in the medial right lower lobe. Coronary artery calcification. There is evidence of free intra peritoneal air. Liver: Normal size. No mass. Gallbladder: Multiple layering gallstones. Spleen: Normal size. Pancreas: Diffuse fatty atrophy. Adrenals: Findings suggestive of a 1.4 cm adenoma in the crux of the left adrenal gland. Kidneys: Normal renal sizes. No hydronephrosis. Bladder: Unremarkable Bowel: Sigmoid diverticulosis. Dilated small bowel loops which are fluid-filled down to the distal portion. Fluid is also seen in the colon. Findings suggestive of either a partial or early small-bowel obstruction or possible ileus. Appendix: The appendix is not identified. There is no inflammatory process identified in the right lower quadrant to suggest appendicitis. Lymph nodes: No suspicious lymph node enlargement. Vasculature: The abdominal aorta and IVC are normal. Peritoneum / Retroperitoneum: Free intraperitoneal air. Small amount of free fluid is seen in the pelvis. Bones: Degenerative changes of the spine. CT/Abdomen/Pelvis W IV Cont ONLY IMPRESSION: Fluid-filled slightly dilated small bowel loops with fluid in the colon. This may represent either early or incomplete small bowel obstruction. Ileus may also have a similar appearance. Free intraperitoneal air. Small gallstones are layered in the gallbladder lumen. Red Alert: Free air The critical information above was relayed directly by me by telephone to Des Barillas on 07/24/2024 at 10:38 am with readback verification. Reading Location: [facility]- CC: Dr. Des Barillas, DO; Dr. Curtis Hernandez MD [employer] Worker: Signed Normal [facility] Absolute lymphocyte countOrd ered By: Des Barillas on 07-24-2024 Lymphocytes Auto (Unsp spec) [#/Vol] 0.58 10*3/uL Low 0.83-4.51 [facility] Absolute neutrophil countOrd ered By: Des Barillas on 07-24-2024 Neutrophils (Bld) [#/Vol] 9.0 10*3/uL High 2.0-7.7 [facility] Anion gap in Serum or Plasma Ordered By: Des Barillas on 07-24-2024 Anion gap [Moles/Vol] 12 mmol/L 5-15 [facility] Automated lymphocyte count a s percentage of total leukocytesOrdered By: Des Barillas on 07-24-2024 Lymphocytes/100 WBC Auto (Unsp spec) 5.6 % Low 19-41 [facility] BUN/creatinine ratioOrdered By: Des Barillas on 07-24-2024 Urea nitrogen/Creatinine [Mass ratio] 21.6 mg/mg High 10-20 [facility] Basophil percentageOrdered B y: Des Barillas on 07-24-2024 Basophils/100 WBC (Bld) 0.4 % 0-1 [facility] Bilirubin Test strip Ql (U)O rdered By: Des Barillas on 07-24-2024 Bilirubin Ql (U) 1 mg/dL High Negative [facility] Comment on above: COLOR OF URINE MAY A FFECT DIPSTICK RESULTS. Bilirubin, totalOrdered By: Des Barillas on 07-24-2024 Bilirubin [Mass/Vol] 0.75 mg/dL 0.00-1.30 [facility] CBC W/Diff, Automatedon 07-07 Absolute Lymph 0.58 X10 3/uL Low 0.83-4.51 [facility] Comment on above: Performed By: #### L 501.080 #### [facility] [address] [place], [address] Absolute Neut 9.0 X10 3/uL High 2.0-7.7 [facility] Comment on above: Performed By: #### L 501.080 #### [facility] [address] [place], [address] Basophils/100 WBC (Bld) 0.4 % Normal 0-1 [facility] Comment on above: Performed By: #### L [id number] #### [facility] [address] [place], [address] Eosinophils/100 WBC (Bld) 0.7 % Normal 0-5 [facility] Comment on above: Performed By: #### L 501.080 #### [facility] [address] [place], [address] Erythrocyte distribution width (RBC) [Ratio] 14.1 % Normal 11.6-14.6 [facility] Comment on above: Performed By: #### L 501.080 #### [facility] [address] [place], [address] Hematocrit (Bld) [Volume fraction] 49.6 % Normal 40-54 [facility] Comment on above: Performed By: #### L 501.080 #### [facility] [address] [place], [address] Hemoglobin (Bld) [Mass/Vol] 16.0 g/dL Normal 13.0-16.5 [facility] Comment on above: Performed By: #### L 501.080 #### [facility] [address] [place], [address] IG% 0.200 Normal 0.0-0.9 [facility] Comment on above: Result Comment: IG% - Immature Granulocytes (promyelocytes, myelocytes and metamyelocytes) > 1% indicates that a LEFT SHIFT is Present. Performed By: #### L 501.080 #### [facility] [address] [place], [address] Lymphocytes/100 WBC (Bld) 5.6 % Low 19-41 [facility] Comment on above: Performed By: #### L [id number] #### [facility] [address] [place], [address] MCH (RBC) [Entitic mass] 25.9 pg Low 27.0-32.0 [facility] Comment on above: Performed By: #### L 501.080 #### [facility] [address] [place], [address] MCHC (RBC) [Mass/Vol] 32.3 g/dL Normal 32-36 [facility] Comment on above: Performed By: #### L 501.080 #### [facility] [address] [place], [address] MCV (RBC) [Entitic vol] 80.4 fL Normal 80-94 [facility] Comment on above: Performed By: #### L 501.080 #### [facility] [address] [place], [address] Monocytes/100 WBC (Bld) 6.2 % Normal 0-10 [facility] Comment on above: Performed By: #### L 501.080 #### [facility] [address] [place], [address] Neutrophils/100 WBC (Bld) 86.9 % High 47-70 [facility] Comment on above: Performed By: #### L 501.080 #### [facility] [address] [place], [address] Nucleated RBC (Bld) [#/Vol] 0 10*3/uL Normal 0-5 [facility] Comment on above: Performed By: #### L 501.080 #### [facility] [address] [place], [address] Platelet mean volume (Bld) [Entitic vol] 11.1 fL Normal 6.2-12.0 [facility] Comment on above: Performed By: #### L 501.080 #### [facility] [address] [place], [address] Platelets (Bld) [#/Vol] 178 10*3/uL Normal 150-450 [facility] Comment on above: Performed By: #### L 501.080 #### [facility] [address] [place], [address] RBC (Bld) [#/Vol] 6.17 10*6/uL Normal 4.6-6.2 [facility] Comment on above: Performed By: #### L 501.080 #### [facility] [address] [place], [address] RDW SD 41.0 fl Normal 35.1-43.9 [facility] Comment on above: Performed By: #### L 501.080 #### [facility] [address] [place], [address] WBC (Bld) [#/Vol] 10.4 10*3/uL Normal 4.4-11.0 [facility] Comment on above: Performed By: #### L 501.080 #### [facility] [address] [place], [address] Carbon dioxide, total [Moles /volume] in Central venous bloodOrdered By: Des Barillas on 07-24-2024 CO2 [Moles/Vol] 24.8 mmol/L 21.0-32.0 [facility] Chloride assayOrdered By: Vlad Barillas on 07-24-2024 Chloride [Moles/Vol] 103 mmol/L 98-108 [facility] Comprehensive Metabolic Prof ilon 07-24-2024 Albumin [Mass/Vol] 3.8 g/dL Normal 3.5-5.0 [facility] Comment on above: Performed By: #### L 501.080 #### [facility] [address] [place], [address] Albumin/Globulin [Mass ratio] 0.9 {ratio} Normal 0.9-2.4 [facility] Comment on above: Performed By: #### L 501.080 #### [facility] [address], [address] ALK PHOS 97 U/L Normal 40-129 [facility] Comment on above: Performed By: #### L 501.080 #### [facility] [address] [place], [address] ALT [Catalytic activity/Vol] 15 U/L Normal <=46 [facility] Comment on above: Performed By: #### L 501.080 #### [facility] [address] [place], [address] AST [Catalytic activity/Vol] 19 U/L Normal <=37 [facility] Comment on above: Performed By: #### L 501.080 #### [facility] [address] [place], [address] Bilirubin [Mass/Vol] 0.75 mg/dL Normal 0.00-1.30 [facility] Comment on above: Performed By: #### L [id number] #### [facility] [address] [place], [address] BUN/CRE 21.6 RATIO High 10-20 [facility] Comment on above: Performed By: #### L [id number] #### [facility] [address] [place], [address] Calcium [Mass/Vol] 9.6 mg/dL Normal 7.6-11.0 [facility] Comment on above: Performed By: #### L [id number] #### [facility] [address] [place], [address] Chloride [Moles/Vol] 103 mmol/L Normal 98-108 [facility] Comment on above: Performed By: #### L [id number] #### [facility] [address] [place], [address] CO2 [Moles/Vol] 24.8 mmol/L Normal 21.0-32.0 [facility] Comment on above: Performed By: #### L 501.080 #### [facility] [address] [place], [address] Creatinine [Mass/Vol] 0.81 mg/dL Normal 0.70-1.20 [facility] Comment on above: Performed By: #### L 501.080 #### [facility] [address] [place], [address] ECRCL 154.59 ml/min Normal 50-250 [facility] Comment on above: Performed By: #### L 501.080 #### [facility] [address] [place], [address] GAP 12 Normal 5-15 [facility] Comment on above: Performed By: #### L 501.080 #### [facility] [address] [place], [address] GFR/1.73 sq M.predicted among non-blacks MDRD (S/P/Bld) [Vol rate/Area] 105 mL/min/{1.73_m2} Normal >60 [facility] Comment on above: Result Comment: mL/m in/1.73m2 CKD-EPI Creatinine Equation (2020) Performed By: #### L 501.080 #### [facility] [address] [place], [address] Globulin (S) [Mass/Vol] 4.0 g/dL Normal 2.2-4.2 [facility] Comment on above: Performed By: #### L 501.080 #### [facility] [address] [place], [address] Glucose [Mass/Vol] 209 mg/dL High 70-99 [facility] Comment on above: Performed By: #### L 501.080 #### [facility] [address] [place], [address] Potassium [Moles/Vol] 3.6 mmol/L Normal 3.3-5.1 [facility] Comment on above: Performed By: #### L [id number] #### [facility] [address] [place], [address] Sodium [Moles/Vol] 140 mmol/L Normal 133-145 [facility] Comment on above: Performed By: #### L 501.080 #### [facility] [address] [place], [id number] T PROT 7.8 g/dL Normal 5.9-8.4 [facility] Comment on above: Performed By: #### L 501.080 #### [facility] [address] [place], [place], [address] Urea nitrogen [Mass/Vol] 17 mg/dL Normal 4-19 [facility] Comment on above: Performed By: #### L 501.080 #### [facility] [address] [place], [place], [address] Emergency Department Summary on 07-24-2024 Emergency Department Summary [facility] Medical Records Department [address] [place] [address] Emergency Department Summary 07/24/24 MR#: [id number] Acct: [id number] Name: MAXWELL SANDHU Rep #: [id number] : 1970 54 From: Des Barillas DO PCP: Dr. Curtis Hernandez MD Status:ADM IN Location: [place] [address] HPI HPI - GI History of Present Illness Chief Complaint: Abd Pain Abdominal Pain/Flank Pain Onset: Yesterday Context: Sudden Onset Timing: Continuous Quality: Dull and - (Gassy) Location: Epigastric, RUQ and LUQ Worsened by: Nothing Relieved by: - (Vomiting) Nausea/Vomiting/Emesis GI Symptom: Positive for Nausea and Vomiting Quality: Positive for Nonbilious; Negative for Blood streaks, Coffee ground or Hematemesis Diarrhea/Melena/Hematochezi a GI Symptom: Positive for Diarrhea; Negative for Melena or Hematochezia Stool Quality: Positive for Watery Associated Symptoms Associated Symptoms: Negative for Dysuria, Frequency or Hematuria Narrative Narrative: Patient presents with abdominal pain and has been constant for the past 2 days. Patient states it began rather suddenly. Patient states it has been constant. Patient describes it as a dull pain. Patient states he feels gassy. Patient states it is mainly over the upper abdomen. Patient states he feels better after vomiting. Patient denies any hematemesis or coffee-ground emesis. Patient admits to some watery diarrhea. Patient denies any melena or hematochezia. Patient denies any dysuria, frequency, or hematuria. Patient admits to some subjective chills but denies any fevers. PFSH PFSH Medical History (Updated 07/24/24 @ 11:[address] Des Barillas, DO) (HFpEF) heart failure with preserved ejection fraction Sleep apnea Seizures Stroke/cerebrovascular accident Hypertension High cholesterol Diabetes Home Medications ???Medication ???Instructions ???Recorded ???Last Taken ???Type levetiracetam 500 mg tablet 500 mg PO BID keppra 11/01/2307/07 History aspirin 81 mg chewable tablet 1 tab PO DAILY heart health 07/23/24 History insulin lispro 100 unit/mL 10 unit subcut TID diabetes #15 mL 06/04/24 07/23/24 Rx subcutaneous pen apixaban 5 mg tablet 5 mg PO BID #134 tabs 07/05/24 Rx furosemide 40 mg tablet 40 mg PO DAILY 30 days #30 tabs 07/23/24 Rx diltiazem HCl 120 mg 120 mg PO Q12H 07/24/24 07/23/24 H istory capsule,extended release 24 hr insulin glargine 100 unit/mL (3 30 unit subcut DAILY diabetes 07/0707/23/24 History mL) subcutaneous pen (Lantus Solostar U-100 Insulin) nifedipine 30 mg tablet,extended 30 mg PO DAILY 07/24/24 07/23/24 H istory release Allergy/AdvReac Type Severity Reaction Status Date / Time No Known Allergies Allergy Verified 07/24/24 07:46 Family History (Updated 07/02/24 @ 16:[address] Des Hamm DO) Other Heart disease Surgical History (Updated 07/24/24 @ 08:[address] Des Barillsa, ) Hx of arthroscopic knee surgery Hx of neck surgery Social History (Updated 07/24/24 @ 08:[address] Des Barillas, DO) household members: spouse and family housing: house Smoking Status: Never smoker Smokeless tobacco user: snuff ROS ROS ED Constitutional Constitutional ED: Reports chills; Denies fever(s) Eyes Eyes: Denies blurry vision or change in vision ENT ENT ED: Denies rhinorrhea or sore throat Cardiovascular Cardiovascular: Denies chest pain or palpitations Respiratory/Chest Respiratory/Chest: Reports cough; Denies dyspnea Gastrointestinal Gastrointestinal: Reports abdominal pain, diarrhea, nausea and vomiting; Denies melena Genitourinary Genitourinary ED: Denies dysuria or hematuria Musculoskeletal Musculoskeletal: Denies back pain or neck pain Integumentary Denies abscess or rash Neurologic Neurologic: Denies headache(s) or weakness Allergic/Immunologic Allergic/Immunologic ED: Denies mouth swelling or urticaria EXAM Physical Exam Const Vital Signs: 07/24/24 07:45 07/24/24 09:45 Temperature 97 F L Temperature Source Temporal Pulse Rate 79 74 Respiratory Rate 14 16 Blood Pressure 131/78 H 135/88 H Blood Pressure Mean 95 103 Pulse Ox 98 99 Oxygen Delivery Method Room Air Positive well nourished and well developed Constitutional Narrative: BMI is 50.8 General Appearance ED: well developed and NAD HEENT Reports moist mucous membranes Neck supple and no JVD Resp normal respiratory effort and clear to auscultation bilaterally Cardio regular rate and regular rhythm GI non-distended Palpation: soft and tender epigastric, LUQ and RUQ; Negative for guarding or rebound tenderness present Neuro CN's II-XII intact bilaterally, moves all extremities and no sensory deficits noted Sensorium / Orientation (more content not included)... Normal [facility] Eosinophil percentageOrdered By: Des Barillas on 07-24-2024 Eosinophils/100 WBC (Bld) 0.7 % 0-5 [facility] Erythrocyte distribution wid th ratioOrdered By: Des Barillas on 07-24-2024 Erythrocyte distribution width (RBC) [Ratio] 14.1 % 11.6-14.6 [facility] Erythrocyte distribution wid th standard deviationOrdered By: Des Barillas on 07-24-2024 Erythrocyte distribution width (RBC) [Ratio] 41.0 fl 35.1-43.9 [facility] Glomerular filtration rate ( GFR) estimation/1.73 sq m using serum, plasma, or whole bOrdered By: Des Barillas on 07-24-2024 GFR/1.73 sq M.predicted among non-blacks MDRD (S/P/Bld) [Vol rate/Area] 105 mL/min/{1.73_m2} >60 [facility] Comment on above: mL/min/1.73m2 CKD-EP I Creatinine Equation (2020) H AND P Exam - Surgicalon H&P Exam - Surgical [facility] Medical Records Department [address] [place] [address] H P Exam - Surgical 07/24/24 1214 MR#: [id number] Acct: [id number] Name: MAXWELL SANDHU Rep #: [id number] : 1970 54 From: Maxwell Ricardo MD PCP: Dr. Curtis Hernandez MD Status:REG ER Location: ED HPI - General HPI Narrative MAXWELL SANDHU, is a 54 M who presents with nausea and vomiting. The patient has also been having some loose stools over the last couple days. Patient reports the pain started yesterday is in the epigastric area and it is minor. He reports no abdominal pain leading up to this. He denies fevers or chills. [facility] Medical History (Updated 07/24/24 @ 11:[address] eDs Barillas, DO) (HFpEF) heart failure with preserved ejection fraction Sleep apnea Seizures Stroke/cerebrovascular accident Hypertension High cholesterol Diabetes Home Medications ???Medication ???Instructions ???Recorded ???Last Taken ???Type levetiracetam 500 mg tablet 500 mg PO BID keppra 11/01/2307/07 History aspirin 81 mg chewable tablet 1 tab PO DAILY heart health 07/23/24 History insulin lispro 100 unit/mL 10 unit subcut TID diabetes #15 mL 06/04/24 07/23/24 Rx subcutaneous pen apixaban 5 mg tablet 5 mg PO BID #134 tabs 07/05/24 Rx furosemide 40 mg tablet 40 mg PO DAILY 30 days #30 tabs 07/23/24 Rx diltiazem HCl 120 mg 120 mg PO Q12H 07/24/24 07/23/24 H istory capsule,extended release 24 hr insulin glargine 100 unit/mL (3 30 unit subcut DAILY diabetes 07/0707/23/24 History mL) subcutaneous pen (Lantus Solostar U-100 Insulin) nifedipine 30 mg tablet,extended 30 mg PO DAILY 07/24/24 07/23/24 H istory release Allergy/AdvReac Type Severity Reaction Status Date / Time No Known Allergies Allergy Verified 07/24/24 07:46 Family History (Updated 07/02/24 @ 16:[address] Des Hamm DO) Other Heart disease Surgical History (Updated 07/24/24 @ 08:[address] Des Barillas DO) Hx of arthroscopic knee surgery Hx of neck surgery Social History (Updated 07/24/24 @ 08:[address] Des Barillas DO) household members: spouse and family housing: house Smoking Status: Never smoker Smokeless tobacco user: snuff ROS Constitutional Constitutional: Denies anorexia, chills, fatigue or fever(s) Eyes Eyes: Denies blurry vision ENT HEENT: Denies abnormal hearing Cardiovascular Cardiovascular: Denies chest pain Respiratory/Chest Respiratory/Chest: Denies cough or dyspnea Gastrointestinal Gastrointestinal: Reports abdominal pain, nausea and vomiting; Denies constipation, diarrhea or dysphagia Genitourinary Genitourinary: Denies change in urinary stream Musculoskeletal Musculoskeletal: Denies abnormal gait Neurologic Neurologic: Denies abnormal gait Psychiatric Psychiatric: Denies anxiety Endocrine Endocrinology: Denies flushing Hematologic/Lymphatic Hematologic/Lymphatic: Denies easy bleeding Vital Signs Vital Signs Vital Signs: 07/24/24 07:45 07/24/24 09:45 Temperature 97 F L Temperature Source Temporal Pulse Rate 79 74 Respiratory Rate 14 16 Blood Pressure 131/78 H 135/88 H Blood Pressure Mean 95 103 Pulse Ox 98 99 Oxygen Delivery Method Room Air Weight Weight: 344 lb Body Mass Index (BMI) 50.8 Physical Exam Const oriented x3 and no apparent distress Resp normal respiratory effort GI soft to palpation and non-tender Results Lab / Micro Data 07/24/24 09:20 07/24/24 09:20 Labs: Laboratory Results - last 24 hr 07/24/24 09:20: WBC 10.4, RBC 6.17, Hgb 16.0, Hct 49.6, MCV 80.4, MCH 25.9 L, MCHC 32.3, RDW Std Deviation 41.0, RDW Coeff of Masha 14.1, Plt Count 178, MPV 11.1, Immature Gran % (Auto) 0.200, Neut % (Auto) 86.9 H, Lymph % (Auto) 5.6 L, [place] % (Auto) 6.2, Eos % (Auto) 0.7, Baso % (Auto) 0.4, A bsolute Neuts (auto) 9.0 H, Absolute Lymphs (auto) 0.58 L, Nucleated RBC % 0, Sodium 140, Potassium 3.6, Chloride 103, Carbon Dioxide 24.8, Anion Gap 12, BUN 17, Creatinine 0.81, Estim Creat Clear Calc 154.59, Est GFR (MDRD) Non-Af 105, BUN/Creatinine Ratio 21.6 H, Glucose 209 H, Calcium 9.6, Total Bilirubin 0.75, AST 19, ALT 15, Alkaline Phosphatase 97, Total Protein 7.8, Albumin 3.8, Globulin 4.0, Albumin/Globulin Ratio 0.9, Lipase 18 07/24/24 11:51: Urine Color Yellow, Urine Clarity Sl. Cloudy, Urine pH 5.0, Ur Specific [place] 1.020, Urine Protein 100 H, Urine Glucose (UA) Normal, Urine Ketones 5 H, Urine Occult Blood 25 H, U rine Nitrite Positive H, Urine Bilirubin 1 H, Urine Urobilinogen 1 H, Ur Leukocyte Esterase 100 H, Urine RBC 0 SEEN, Urine WBC 10-25 SEEN, Ur Squamous Epith Cells 0-5 SEEN, Urine Bacteria 2+, Urine Mucus 0 SEEN Imaging Radiology Impression Abdomen/Pelvis CT (more content not included)... Normal [facility] Hematocrit Auto (Bld) [Volum e fraction]Ordered By: Des Barillas on 07-24-2024 Hematocrit (Bld) [Volume fraction] 49.6 % 40-54 [facility] Hemoglobin measurementOrdere d By: Des Barillas on 07-24-2024 Hemoglobin (Bld) [Mass/Vol] 16.0 g/dL 13.0-16.5 [facility] Immature granulocytes/100 WB C Auto (Bld)Ordered By: Des Barillas on 07-24-2024 Immature granulocytes/100 WBC (Bld) 0.200 % 0.0-0.9 [facility] Comment on above: IG% - Immature Granu locytes (promyelocytes, myelocytes and metamyelocytes) > 1% indicates that a LEFT SHIFT is Present. Ketones Test strip Ql (U)Ord ered By: Des Barillas on 07-24-2024 Ketones Ql (U) 5 mg/dl High Negative [facility] - Chemistry and C hemistry - challengeOrdered By: Des Barillas on 07-24-2024 AST [Catalytic activity/Vol] 19 U/L <38 [facility] Lipaseon 07-24-2024 Lipase [Catalytic activity/Vol] 18 U/L Normal 13-75 [facility] Comment on above: Result Comment: Leonela rodriguez note: LIPASE revised reference range effective 22. New Lipase methodology. Expected to produce lower values than the previous assay method. NEW Reference Range: 13 - 75 U/L Performed By: #### L 501.080 #### [facility] [address] [place], [address] Lipase measurementOrdered By : Des Barillas on 07-24-2024 Lipase [Catalytic activity/Vol] 18 U/L 13-75 [facility] Comment on above: Please note:LIPASE r evised reference range effective 22. New Lipase methodology. Expected to produce lower values than the previous assay method. NEW Reference Range: 13 - 75 U/L MCV (mean corpuscular volume ) determinationOrdered By: Des Barillas on 07-24-2024 MCV (RBC) [Entitic vol] 80.4 fL 80-94 [facility] Mean corpuscular hemoglobin (MCH) determinationOrdered By: Des Barillas on 07-24-2024 MCH (RBC) [Entitic mass] 25.9 pg Low 27.0-32.0 [facility] Mean corpuscular hemoglobin concentration (MCHC) determinationOrdered By: Des Barillas on 07-24-2024 MCHC (RBC) [Mass/Vol] 32.3 g/dL 32-36 [facility] Mean platelet volume determi nationOrdered By: Des Barillas on 07-24-2024 Platelet mean volume (Bld) [Entitic vol] 11.1 fL 6.2-12.0 [facility] Microscopic analysis of urin e for red blood cells (RBC)Ordered By: Des Barillas on 07-24-2024 Microscopic analysis of urine for red blood cells (RBC) 0 SEEN /hpf 0-5 [facility] Monocyte percentageOrdered B y: Des Barillas on 07-24-2024 Monocytes/100 WBC (Bld) 6.2 % 0-10 [facility] Mucus LM Ql (Urine sed)Order ed By: Des Barillas on 07-24-2024 Mucus Ql (Urine sed) 0 SEEN /hpf [facility] Neutrophil percentageOrdered By: Des Barillas on 07-24-2024 Neutrophils/100 WBC (Bld) 86.9 % High 47-70 [facility] Nitrite Test strip Ql (U)Ord ered By: Des Barillas on 07-24-2024 Nitrite Ql (U) Positive High Negative [facility] Nucleated red blood cell per centageOrdered By: Des Barillas on 07-24-2024 Nucleated RBC/100 WBC (Bld) [Ratio] 0 % 0-5 [facility] Platelet countOrdered By: Vlad Barillas on 07-24-2024 Platelets (Bld) [#/Vol] 178 10*3/uL 150-450 [facility] Potassium measurement (mass/ volume)Ordered By: Des Barillas on 07-24-2024 Potassium (Unsp spec) [Mass/Vol] 3.6 mmol/L 3.3-5.1 [facility] Protein Test strip Ql (U)Ord ered By: Des Barillas on 07-24-2024 Protein Ql (U) 100 mg/dl High Negative [facility] RBC Auto (Bld) [#/Vol]Ordere d By: Des Barillas on 07-24-2024 RBC (Bld) [#/Vol] 6.17 10*6/uL 4.6-6.2 [facility] Serum creatinine measurement (mass/volume)Ordered By: Des Barillas on 07-24-2024 Creatinine [Mass/Vol] 0.81 mg/dL 0.70-1.20 [facility] Serum globulin measurementOr dered By: Des Barillas on 07-24-2024 Globulin (S) [Mass/Vol] 4.0 g/dL 2.2-4.2 [facility] Serum glucose measurement (m ass/volume)Ordered By: Des Barillas on 07-24-2024 Glucose [Mass/Vol] 209 mg/dL High 70-99 [facility] Serum or plasma alanine keita otransferase (ALT) measurementOrdered By: Des Barillas on 07-24-2024 ALT [Catalytic activity/Vol] 15 U/L <47 [facility] Serum or plasma albumin gloria urement (mass/volume)Ordered By: Des Barillas on 07-24-2024 Albumin [Mass/Vol] 3.8 g/dL 3.5-5.0 [facility] Serum or plasma albumin/glob ulin mass ratioOrdered By: Des Barillas on 07-24-2024 Albumin/Globulin [Mass ratio] 0.9 {ratio} 0.9-2.4 [facility] Serum or plasma alkaline ivy sphatase measurementOrdered By: Des Barillas on 07-24-2024 ALP [Catalytic activity/Vol] 97 U/L 40-129 [facility] Serum or plasma calcium gloria urement (mass/volume)Ordered By: Des Barillas on 07-24-2024 Calcium [Mass/Vol] 9.6 mg/dL 7.6-11.0 [facility] Serum or plasma urea nitroge n measurement (mass/volume)Ordered By: Des Barillas on 07-24-2024 Urea nitrogen [Mass/Vol] 17 mg/dL 4-19 [facility] Sodium levelOrdered By: Des Barillas on 07-24-2024 Sodium [Moles/Vol] 140 mmol/L 133-145 [facility] Squamous epithelial cells de tection in urine sediment by light microscopyOrdered By: Des Barillas on 07-24-2024 Epithelial cells.squamous LM Ql (Urine sed) 0-5 SEEN /hpf 0-5 [facility] Total proteinOrdered By: Neyda Barillas on 07-24-2024 Protein [Mass/Vol] 7.8 g/dL 5.9-8.4 [facility] Urinalysis, Completeon 07-24 BACTERIA 2+ /hpf Normal None Seen [facility] Comment on above: Order Comment: CLEAN CATCH Performed By: #### L 400.0001 #### [facility] [address] [place], [address] EPI,SQUAMOUS 0-5 SEEN Normal 0-5 [facility] Comment on above: Order Comment: CLEAN CATCH Performed By: #### L [id number] #### [facility] [address] [place], [address] WBC 10-25 SEEN Normal 0-5 [facility] Comment on above: Order Comment: CLEAN CATCH Performed By: #### L 400.0001 #### [facility] [address] [place], [address] Mucus Ql (Urine sed) 0 SEEN Normal [facility] Comment on above: Order Comment: CLEAN CATCH Performed By: #### L [id number] #### [facility] [address] [place], [address] RBC 0 SEEN Normal 0-5 [facility] Comment on above: Order Comment: CLEAN CATCH Performed By: #### L [id number] #### [facility] [address] [place], [address] Urine clarityOrdered By: Neyda Barillas on 07-24-2024 Clarity (U) Sl. Cloudy Clear [facility] Urine color determinationOrd ered By: Des Barillas on 07-24-2024 Color (U) Yellow Yellow [facility] Urine glucose detectionOrder ed By: Des Barillas on 07-24-2024 Glucose Ql (U) Normal mg/dl Normal [facility] Urine leukocyte esterase det ection by dipstickOrdered By: Des Barillas on 07-24-2024 Leukocyte esterase Test strip Ql (U) 100 /ul High Negative [facility] Urine pHOrdered By: Des acosta on 07-24-2024 pH (U) 5.0 [pH] 5.0 - 8.0 [facility] Urine sediment bacteria coun t by microscopy (number/high power field)Ordered By: Des Barillas on 07-24-2024 Bacteria LM.HPF (Urine sed) [#/Area] 2 /[HPF] None Seen [facility] Urine specific gravity measu rementOrdered By: Des Barillas on 07-24-2024 Specific gravity (U) [Rel density] 1.020 1.002-1.03 0 [facility] Urine urobilinogen measureme ntOrdered By: Des Barillas on 07-24-2024 Urobilinogen Ql (U) 1 mg/dl High Normal [facility] White blood cell (WBC) count Ordered By: Des Barillas on 07-24-2024 WBC (Bld) [#/Vol] 10.4 10*3/uL 4.4-11.0 [facility] White blood cell countOrdere d By: Des Barillas on 07-24-2024 White blood cell count 10-25 SEEN /hpf 0-5 [facility] Basic Metabolic Profile (BMP )on 07-08-2024 BUN Normal 4-19 [facility] Comment on above: Result Comment: Canc elled via OM: Order cancelled - Patient discharged Performed By: #### L 501.080 #### [facility] [address] [facility] [address] BUN/CRE Normal 10-20 [facility] Comment on above: Result Comment: Canc elled via OM: Order cancelled - Patient discharged Performed By: #### L 501.080 #### [facility] [address] [facility] [address] Calcium Normal 7.6-11.0 [facility] Comment on above: Result Comment: Canc elled via OM: Order cancelled - Patient discharged Performed By: #### L 501.080 #### [facility] [address] [facility] [address] CL Normal 98-108 [facility] Comment on above: Result Comment: Canc elled via OM: Order cancelled - Patient discharged Performed By: #### L 501.080 #### [facility] [address] [place], [address] CO2 Normal 21.0-32.0 [facility] Comment on above: Result Comment: Canc elled via OM: Order cancelled - Patient discharged Performed By: #### L 501.080 #### [facility] [address] [place], [address] CREAT,SERUM Normal 0.70-1.20 [facility] Comment on above: Result Comment: Canc elled via OM: Order cancelled - Patient discharged Performed By: #### L 501.080 #### [facility] [address] [place], [address] eGFR Normal >60 [facility] Comment on above: Result Comment: Canc elled via OM: Order cancelled - Patient discharged Performed By: #### L 501.080 #### [facility] [address] [place], [address] GAP Normal 5-15 [facility] Comment on above: Result Comment: Canc elled via OM: Order cancelled - Patient discharged Performed By: #### L 501.080 #### [facility] [address] [place], [address] GLU Normal 70-99 [facility] Comment on above: Result Comment: Canc elled via OM: Order cancelled - Patient discharged Performed By: #### L 501.080 #### [facility] [address] [place], [address] Potassium Normal 3.3-5.1 [facility] Comment on above: Result Comment: Canc elled via OM: Order cancelled - Patient discharged Performed By: #### L 501.080 #### [facility] [address] [place], [address] Basic Metabolic Profile (BMP) Normal 133-145 [facility] Comment on above: Result Comment: Canc elled via OM: Order cancelled - Patient discharged Performed By: #### L 501.080 #### [facility] [address] [place], [address] Basic Metabolic Profile (BMP )on 07-07-2024 BUN Normal 4-19 [facility] Comment on above: Result Comment: Canc elled via OM: Order cancelled - Patient discharged Performed By: #### L 501.080 #### [facility] [address] [place], [address] BUN/CRE Normal 10-20 [facility] Comment on above: Result Comment: Canc elled via OM: Order cancelled - Patient discharged Performed By: #### L 501.080 #### [facility] [address] [place], [address] Calcium Normal 7.6-11.0 [facility] Comment on above: Result Comment: Canc elled via OM: Order cancelled - Patient discharged Performed By: #### L 501.080 #### [facility] [address] [place], [address] CL Normal 98-108 [facility] Comment on above: Result Comment: Canc elled via OM: Order cancelled - Patient discharged Performed By: #### L 501.080 #### [facility] [address] [place], [address] CO2 Normal 21.0-32.0 [facility] Comment on above: Result Comment: Canc elled via OM: Order cancelled - Patient discharged Performed By: #### L 501.080 #### [facility] [address] [place], [address] CREAT,SERUM Normal 0.70-1.20 [facility] Comment on above: Result Comment: Canc elled via OM: Order cancelled - Patient discharged Performed By: #### L 501.080 #### [facility] [address] [place], [address] eGFR Normal >60 [facility] Comment on above: Result Comment: Canc elled via OM: Order cancelled - Patient discharged Performed By: #### L 501.080 #### [facility] [address] [place], [address] GAP Normal 5-15 [facility] Comment on above: Result Comment: Canc elled via OM: Order cancelled - Patient discharged Performed By: #### L 501.080 #### [facility] [address] [place], [address] GLU Normal 70-99 [facility] Comment on above: Result Comment: Canc elled via OM: Order cancelled - Patient discharged Performed By: #### L 501.080 #### [facility] [address] [place], [address] Potassium Normal 3.3-5.1 [facility] Comment on above: Result Comment: Canc elled via OM: Order cancelled - Patient discharged Performed By: #### L 501.080 #### [facility] [address] [place], [address] Basic Metabolic Profile (BMP) Normal 133-145 [facility] Comment on above: Result Comment: Canc elled via OM: Order cancelled - Patient discharged Performed By: #### L 501.080 #### [facility] [address] [place], [address] CBC-Complete Blood Cnt No Di ffon 07-07-2024 HCT Normal 40-54 [facility] Comment on above: Result Comment: Canc elled via OM: Order cancelled - Patient discharged Performed By: #### L 100.0500 #### [facility] [address] [place], [address] HGB Normal 13.0-16.5 [facility] Comment on above: Result Comment: Canc elled via OM: Order cancelled - Patient discharged Performed By: #### L 100.0500 #### [facility] [address] [place], [address] MCH Normal 27.0-32.0 [facility] Comment on above: Result Comment: Canc elled via OM: Order cancelled - Patient discharged Performed By: #### L 100.0500 #### [facility] [address] [place], [address] MCHC Normal 32-36 [facility] Comment on above: Result Comment: Canc elled via OM: Order cancelled - Patient discharged Performed By: #### L 100.0500 #### [facility] [address] [place], [address] MCV Normal 80-94 [facility] Comment on above: Result Comment: Canc elled via OM: Order cancelled - Patient discharged Performed By: #### L 100.0500 #### [facility] [address] [place], [address] PLT Normal 150-450 [facility] Comment on above: Result Comment: Canc elled via OM: Order cancelled - Patient discharged Performed By: #### L 100.0500 #### [facility] [address] [place], [address] RBC Normal 4.6-6.2 [facility] Comment on above: Result Comment: Canc elled via OM: Order cancelled - Patient discharged Performed By: #### L 100.0500 #### [facility] [address] [place], [address] RDW CV Normal 11.6-14.6 [facility] Comment on above: Result Comment: Canc elled via OM: Order cancelled - Patient discharged Performed By: #### L 100.0500 #### [facility] [address] [place], [address] RDW SD Normal 35.1-43.9 [facility] Comment on above: Result Comment: Canc elled via OM: Order cancelled - Patient discharged Performed By: #### L 100.0500 #### [facility] [address] [place], [address] WBC Normal 4.4-11.0 [facility] Comment on above: Result Comment: Canc elled via OM: Order cancelled - Patient discharged Performed By: #### L 100.0500 #### [facility] [address] [place], [address] Basic Metabolic Profile (BMP )on 07-06-2024 BUN Normal -19 [facility] Comment on above: Result Comment: Canc elled via OM: Order cancelled - Patient discharged Performed By: #### L 501.080 #### [facility] [address] [place], [address] BUN/CRE Normal 10- [facility] Comment on above: Result Comment: Canc elled via OM: Order cancelled - Patient discharged Performed By: #### L 501.080 #### [facility] [address] [place], [address] Calcium Normal 7.6-11.0 [facility] Comment on above: Result Comment: Canc elled via OM: Order cancelled - Patient discharged Performed By: #### L 501.080 #### [facility] [address] [place], [address] CL Normal 98-108 [facility] Comment on above: Result Comment: Canc elled via OM: Order cancelled - Patient discharged Performed By: #### L 501.080 #### [facility] [address] [place], [address] CO2 Normal 21.0-32.0 [facility] Comment on above: Result Comment: Canc elled via OM: Order cancelled - Patient discharged Performed By: #### L 501.080 #### [facility] [address] [place], [address] CREAT,SERUM Normal 0.70-1.20 [facility] Comment on above: Result Comment: Canc elled via OM: Order cancelled - Patient discharged Performed By: #### L 501.080 #### [facility] [address] [place], [address] eGFR Normal >60 [facility] Comment on above: Result Comment: Canc elled via OM: Order cancelled - Patient discharged Performed By: #### L 501.080 #### [facility] [address] [place], [address] GAP Normal 5-15 [facility] Comment on above: Result Comment: Canc elled via OM: Order cancelled - Patient discharged Performed By: #### L 501.080 #### [facility] [address] [place], [address] GLU Normal 70-99 [facility] Comment on above: Result Comment: Canc elled via OM: Order cancelled - Patient discharged Performed By: #### L 501.080 #### [facility] [address] [place], [address] Potassium Normal 3.3-5.1 [facility] Comment on above: Result Comment: Canc elled via OM: Order cancelled - Patient discharged Performed By: #### L 501.080 #### [facility] [address] [place], [address] Basic Metabolic Profile (BMP) Normal 133-145 [facility] Comment on above: Result Comment: Canc elled via OM: Order cancelled - Patient discharged Performed By: #### L 501.080 #### [facility] [address] [place], [address] Anion gap in Serum or Plasma Ordered By: Lawrence Cary on 05-30-2025 Anion gap [Moles/Vol] 14 mmol/L 5-15 [facility] BUN/creatinine ratioOrdered By: Lawrence Cary on 07-05-2024 Urea nitrogen/Creatinine [Mass ratio] 25.6 mg/mg High - [facility] Basic Metabolic Profile (BMP )on 07-05-2024 BUN/CRE 25.6 RATIO High - [facility] Comment on above: Performed By: #### L 501.5200, L501.9520 #### [facility] [address] [place], [address] Calcium [Mass/Vol] 8.8 mg/dL Normal 7.6-11.0 [facility] Comment on above: Performed By: #### L 501.5200, L501.9520 #### [facility] [address] [place], [address] Chloride [Moles/Vol] 95 mmol/L Low 98-108 [facility] Comment on above: Performed By: #### L 501.5200, L501.9520 #### [facility] [address] [place], [address] CO2 [Moles/Vol] 27.9 mmol/L Normal 21.0-32.0 [facility] Comment on above: Performed By: #### L 501.5200, L501.9520 #### [facility] [address] [place], [address] Creatinine [Mass/Vol] 0.85 mg/dL Normal 0.70-1.20 [facility] Comment on above: Performed By: #### L 501.5200, L501.9520 #### [facility] [address] [place], [address] ECRCL 145.64 ml/min Normal 50-250 [facility] Comment on above: Performed By: #### L 501.5200, L501.9520 #### [facility] [address] [place], [address] GAP 14 Normal 5-15 [facility] Comment on above: Performed By: #### L 501.5200, L501.9520 #### [facility] [address] [place], [address] GFR/1.73 sq M.predicted among non-blacks MDRD (S/P/Bld) [Vol rate/Area] 103 mL/min/{1.73_m2} Normal >60 [facility] Comment on above: Result Comment: mL/m in/1.73m2 CKD-EPI Creatinine Equation (2020) Performed By: #### L 501.5200, L501.9520 #### [facility] [address] [place], [address] Glucose [Mass/Vol] 109 mg/dL High 70-99 [facility] Comment on above: Performed By: #### L 501.5200, L501.9520 #### [facility] [address] [place], [address] Potassium [Moles/Vol] 3.3 mmol/L Normal 3.3-5.1 [facility] Comment on above: Performed By: #### L 501.5200, L501.9520 #### [facility] [address] [place], [address] Sodium [Moles/Vol] 137 mmol/L Normal 133-145 [facility] Comment on above: Performed By: #### L 501.5200, L501.9520 #### [facility] [address] [place], [address] Urea nitrogen [Mass/Vol] 22 mg/dL High 4-19 [facility] Comment on above: Performed By: #### L 501.5200, L501.9520 #### [facility] [address] [place], [address] Bedside Glucoseon 07-05-2024 FINGERSTICK GLU 172 mg/dL High 74-106 [facility] Comment on above: Result Comment: SYLVESTER GEMENT OF PATIENT CARE PER NURSING PROTOCOL Performed By: #### L 501.5200, L501.9520 #### [facility] [address] [place], [address] FINGERSTICK GLU 114 mg/dL High 74-106 [facility] Comment on above: Result Comment: SYLVESTER GEMENT OF PATIENT CARE PER NURSING PROTOCOL Performed By: #### L 501.080 #### [facility] [address] [place], [address] CBC-Complete Blood Cnt No Di ffon 07-05-2024 Erythrocyte distribution width (RBC) [Ratio] 13.7 % Normal 11.6-14.6 [facility] Comment on above: Performed By: #### L 400.0001 #### [facility] [address] [place], [address] Hematocrit (Bld) [Volume fraction] 45.2 % Normal 40-54 [facility] Comment on above: Performed By: #### L 400.0001 #### [facility] [address] [place], [address] Hemoglobin (Bld) [Mass/Vol] 14.7 g/dL Normal 13.0-16.5 [facility] Comment on above: Performed By: #### L 400.0001 #### [facility] [address] [place], [address] MCH (RBC) [Entitic mass] 26.5 pg Low 27.0-32.0 [facility] Comment on above: Performed By: #### L 400.0001 #### [facility] [address] [place], [address] MCHC (RBC) [Mass/Vol] 32.5 g/dL Normal 32-36 [facility] Comment on above: Performed By: #### L 400.0001 #### [facility] [address] [place], [address] MCV (RBC) [Entitic vol] 81.6 fL Normal 80-94 [facility] Comment on above: Performed By: #### L 400.0001 #### [facility] [address] [place], [address] Platelet mean volume (Bld) [Entitic vol] 11.8 fL Normal 6.2-12.0 [facility] Comment on above: Performed By: #### L 400.0001 #### [facility] [address] [place], [address] Platelets (Bld) [#/Vol] 203 10*3/uL Normal 150-450 [facility] Comment on above: Performed By: #### L 400.0001 #### [facility] [address] [place], [address] RBC (Bld) [#/Vol] 5.54 10*6/uL Normal 4.6-6.2 [facility] Comment on above: Performed By: #### L 400.0001 #### [facility] [address] [place], [address] RDW SD 39.9 fl Normal 35.1-43.9 [facility] Comment on above: Performed By: #### L 400.0001 #### [facility] [address] [place], [address] WBC (Bld) [#/Vol] 9.6 10*3/uL Normal 4.4-11.0 [facility] Comment on above: Performed By: #### L 400.0001 #### [facility] [address] [place], [address] Carbon dioxide, total [Moles /volume] in Central venous bloodOrdered By: Lawrence Cary on 07-05-2024 CO2 [Moles/Vol] 27.9 mmol/L 21.0-32.0 [facility] Chloride assayOrdered By: Geovanny Cary on 07-05-2024 Chloride [Moles/Vol] 95 mmol/L Low 98-108 [facility] Discharge Instructionon 06-08 Discharge Instruction [facility] Medical Records Department [address] [place] [address] Instructions for Home/Discharge Instructions 07/05/24 1152 MR#: [id number] Acct: [id number] Name: MAXWELL SANDHU Rep #: [id number] : 1970 54 From: Lawrence Cary DO PCP: Dr. Curtis Hernandez MD Status:ADM IN Discharge Instructions Diet Discharge Diet: 8 Cup Fluid Restriction, 4000 mg Sodium Diet and Carb Control Diet DC O2, CPAP, BIPAP needs Home O2 Discharge instructions: No Dressing / Incision Discharge Activity: No Restrictions Follow Up Care Test Results: Test results from this visit will be discussed in further detail at your follow-up appointment, if applicable. Discharge Plan Admission Admit Date/Time: 07/02/24 16:06 Primary Reason for Your Visit: Shortness of breath Attending Provider: Lawrence Cary Primary Care Provider: Curtis Hernandez Consulting Providers: Des Hamm Discharge Orders/Prescriptions Prescriptions: New furosemide 40 mg Tablet 40 mg PO DAILY 30 Days Qty: 30 2RF Continued levetiracetam 500 mg tablet 500 mg PO BID Jardiance 10 mg tablet 10 mg PO DAILY apixaban 5 mg tablet 5 mg PO BID Qty: 134 0RF aspirin 81 mg tablet,chewable 1 tab PO DAILY atorvastatin 40 mg tablet 40 mg PO QHS diltiazem HCl 120 mg Capsule,Extended Release 24hr 120 mg PO Q12 120 Days Qty: 240 0RF insulin lispro 100 unit/mL insulin pen 10 unit subcut TID Qty: 15 0RF Protocol: 6. Sliding Scale Insulin Custom Condition: mg/dl range Dose/Route: Number of Units Protocol Text: Custom Sliding Scale Rx Instructions: patient on sliding scale with meals subcutaneously three times a day; insulin glargine [Lantus Solostar U-100 Insulin] 100 unit/mL (3 mL) insulin pen 25 unit subcut DAILY Qty: 15 0RF Referrals / Follow Up: Steven Saba MD [Med Staff - Active Staff] - Curtis Hernandez MD [Primary Care Provider] - Disposition Disposition (needs filled in before D/C Order can be placed): Home, Self Care 07/05/24 1154 Lawrence Cary DO CC: Dr. Des Hamm DO; Dr. Curtis Hernandez MD Signed Normal [facility] Erythrocyte distribution wid th ratioOrdered By: Lawrence Cary on 07-05-2024 Erythrocyte distribution width (RBC) [Ratio] 13.7 % 11.6-14.6 [facility] Erythrocyte distribution wid th standard deviationOrdered By: Lawrence Cary on 07-05-2024 Erythrocyte distribution width (RBC) [Ratio] 39.9 fl 35.1-43.9 [facility] Glomerular filtration rate ( GFR) estimation/1.73 sq m using serum, plasma, or whole bOrdered By: Lawrence Cary on 07-05-2024 GFR/1.73 sq M.predicted among non-blacks MDRD (S/P/Bld) [Vol rate/Area] 103 mL/min/{1.73_m2} >60 [facility] Comment on above: mL/min/1.73m2 CKD-EP I Creatinine Equation (2020) Gl[facility] at [facility] deOrdered By: Lawrence Cary on 07-05-2024 Glucose [Mass/Vol] 172 mg/dL High 74-106 [facility] Comment on above: MANAGEMENT OF PATIEN T CARE PER NURSING PROTOCOL Hematocrit Auto (Bld) [Volum e fraction]Ordered By: Lawrence Cary on 07-05-2024 Hematocrit (Bld) [Volume fraction] 45.2 % 40-54 [facility] Hemoglobin measurementOrdere d By: Lawrence Cary on 07-05-2024 Hemoglobin (Bld) [Mass/Vol] 14.7 g/dL 13.0-16.5 [facility] MCV (mean corpuscular volume ) determinationOrdered By: Lawrence Cary on 07-05-2024 MCV (RBC) [Entitic vol] 81.6 fL 80-94 [facility] Mean corpuscular hemoglobin (MCH) determinationOrdered By: Lawrence Cary on 07-05-2024 MCH (RBC) [Entitic mass] 26.5 pg Low 27.0-32.0 [facility] Mean corpuscular hemoglobin concentration (MCHC) determinationOrdered By: Lawrence Cary on 07-05-2024 MCHC (RBC) [Mass/Vol] 32.5 g/dL 32-36 [facility] Mean platelet volume determi nationOrdered By: Lawrence Cary on 07-05-2024 Platelet mean volume (Bld) [Entitic vol] 11.8 fL 6.2-12.0 [facility] Platelet countOrdered By: Geovanny Cary on 07-05-2024 Platelets (Bld) [#/Vol] 203 10*3/uL 150-450 [facility] Potassium measurement (mass/ volume)Ordered By: Lawrence Cary on 07-05-2024 Potassium (Unsp spec) [Mass/Vol] 3.3 mmol/L 3.3-5.1 [facility] RBC Auto (Bld) [#/Vol]Ordere d By: Lawrence Cary on 07-05-2024 RBC (Bld) [#/Vol] 5.54 10*6/uL 4.6-6.2 [facility] Serum creatinine measurement (mass/volume)Ordered By: Lawrence Cary on 07-05-2024 Creatinine [Mass/Vol] 0.85 mg/dL 0.70-1.20 [facility] Serum glucose measurement (m ass/volume)Ordered By: Lawrence Cary on 07-05-2024 Glucose [Mass/Vol] 109 mg/dL High 70-99 [facility] Serum or plasma calcium gloria urement (mass/volume)Ordered By: Lawrence Cary on 07-05-2024 Calcium [Mass/Vol] 8.8 mg/dL 7.6-11.0 [facility] Serum or plasma urea nitroge n measurement (mass/volume)Ordered By: Lawrence Cary on 07-05-2024 Urea nitrogen [Mass/Vol] 22 mg/dL High 4-19 [facility] Sodium levelOrdered By: John Cary on 07-05-2024 Sodium [Moles/Vol] 137 mmol/L 133-145 [facility] White blood cell (WBC) count Ordered By: Lawrence Cary on 07-05-2024 WBC (Bld) [#/Vol] 9.6 10*3/uL 4.4-11.0 [facility] Basic Metabolic Profile (BMP )on 07-04-2024 BUN/CRE 21.7 RATIO High 10-20 [facility] Comment on above: Performed By: #### L 501.080 #### [facility] [address] [place], [address] Calcium [Mass/Vol] 8.9 mg/dL Normal 7.6-11.0 [facility] Comment on above: Performed By: #### L [id number] #### [facility] [address] [place], [address] Chloride [Moles/Vol] 97 mmol/L Low 98-108 [facility] Comment on above: Performed By: #### L [id number] #### [facility] [address] [place], [address] CO2 [Moles/Vol] 29.9 mmol/L Normal 21.0-32.0 [facility] Comment on above: Performed By: #### L 501.080 #### [facility] [address] [place], [address] Creatinine [Mass/Vol] 0.82 mg/dL Normal 0.70-1.20 [facility] Comment on above: Performed By: #### L 501.080 #### [facility] [address] [place], [address] ECRCL 151.32 ml/min Normal 50-250 [facility] Comment on above: Performed By: #### L 501.080 #### [facility] [address] [place], [address] GAP 12 Normal 5-15 [facility] Comment on above: Performed By: #### L 501.080 #### [facility] [address] [place], [address] GFR/1.73 sq M.predicted among non-blacks MDRD (S/P/Bld) [Vol rate/Area] 104 mL/min/{1.73_m2} Normal >60 [facility] Comment on above: Result Comment: mL/m in/1.73m2 CKD-EPI Creatinine Equation (2020) Performed By: #### L 501.080 #### [facility] [address] [place], [address] Glucose [Mass/Vol] 113 mg/dL High 70-99 [facility] Comment on above: Performed By: #### L 501.080 #### [facility] [address] [place], [address] Potassium [Moles/Vol] 3.4 mmol/L Normal 3.3-5.1 [facility] Comment on above: Performed By: #### L 501.080 #### [facility] [address] [place], [address] Sodium [Moles/Vol] 140 mmol/L Normal 133-145 [facility] Comment on above: Performed By: #### L 501.080 #### [facility] [address] [place], [address] Urea nitrogen [Mass/Vol] 18 mg/dL Normal 4-19 [facility] Comment on above: Performed By: #### L 501.080 #### [facility] [address] [place], [address] Bedside Glucoseon 07-04-2024 FINGERSTICK GLU 121 mg/dL High 74-106 [facility] Comment on above: Result Comment: SYLVESTER ALMONTE OF PATIENT CARE PER NURSING PROTOCOL Performed By: #### L 501.5200, L501.9520 #### [facility] [address] [place], [address] FINGERSTICK GLU 148 mg/dL High 74-106 [facility] Comment on above: Result Comment: SYLVESTER GEMENT OF PATIENT CARE PER NURSING PROTOCOL Performed By: #### L 501.080 #### [facility] [address] [place], [address] FINGERSTICK GLU 162 mg/dL High 74-106 [facility] Comment on above: Result Comment: SYLVESTER GEMENT OF PATIENT CARE PER NURSING PROTOCOL Performed By: #### L 501.5200, L501.9520 #### [facility] [address] [place], [address] FINGERSTICK GLU 136 mg/dL High 74-106 [facility] Comment on above: Result Comment: SYLVESTER GEMENT OF PATIENT CARE PER NURSING PROTOCOL Performed By: #### L 501.080 #### [facility] [address] [place], [address] FINGERSTICK GLU 105 mg/dL Normal 74-106 [facility] Comment on above: Result Comment: SYLVESTER GEMENT OF PATIENT CARE PER NURSING PROTOCOL Performed By: #### L 501.080 #### [facility] [address] [place], [address] Magnesiumon 07-04-2024 Magnesium [Mass/Vol] 2.1 mg/dL Normal 1.5-2.2 [facility] Comment on above: Performed By: #### L 501.5200, L501.9520 #### [facility] [address] [place], [address] Magnesium measurement (mass/ volume)Ordered By: Lawrence Cary on 07-04-2024 Magnesium (Unsp spec) [Mass/Vol] 2.1 mg/dL 1.5-2.2 [facility] Phosphoruson 07-04-2024 Phosphate [Mass/Vol] 5.0 mg/dL High 2.7-4.5 [facility] Comment on above: Performed By: #### L 501.5200, L501.9520 #### [facility] [address] [place], [address] Absolute lymphocyte countOrd ered By: Des Thomsonjosueneyda on 07-03-2024 Lymphocytes Auto (Unsp spec) [#/Vol] 1.72 10*3/uL 0.83-4.51 [facility] Absolute neutrophil countOrd ered By: Des Thomsonjosueneyda on 07-03-2024 Neutrophils (Bld) [#/Vol] 7.2 10*3/uL 2.0-7.7 [facility] Automated lymphocyte count a s percentage of total leukocytesOrdered By: Des Thomsonyas on 07-03-2024 Lymphocytes/100 WBC Auto (Unsp spec) 17.0 % Low 19-41 [facility] Basic Metabolic Profile (BMP )on 07-03-2024 BUN/CRE 20.2 RATIO High 10-20 [facility] Comment on above: Performed By: #### L 501.080 #### [facility] [address] [place], [address] Calcium [Mass/Vol] 9.0 mg/dL Normal 7.6-11.0 [facility] Comment on above: Performed By: #### L 501.080 #### [facility] [address] [place], [address] Chloride [Moles/Vol] 100 mmol/L Normal 98-108 [facility] Comment on above: Performed By: #### L 501.080 #### [facility] [address] [place], [address] CO2 [Moles/Vol] 25.5 mmol/L Normal 21.0-32.0 [facility] Comment on above: Performed By: #### L 501.080 #### [facility] [address] [place], [address] Creatinine [Mass/Vol] 0.75 mg/dL Normal 0.70-1.20 [facility] Comment on above: Performed By: #### L 501.080 #### [facility] [address] [place], [address] ECRCL 171.49 ml/min Normal 50-250 [facility] Comment on above: Performed By: #### L 501.080 #### [facility] [address] [place], [address] GAP 13 Normal 5-15 [facility] Comment on above: Performed By: #### L 501.080 #### [facility] [address] [place], [address] GFR/1.73 sq M.predicted among non-blacks MDRD (S/P/Bld) [Vol rate/Area] 107 mL/min/{1.73_m2} Normal >60 [facility] Comment on above: Result Comment: mL/m in/1.73m2 CKD-EPI Creatinine Equation (2020) Performed By: #### L 501.080 #### [facility] [address] [place], [address] Glucose [Mass/Vol] 140 mg/dL High 70-99 [facility] Comment on above: Performed By: #### L 501.080 #### [facility] [address] [place], [address] Potassium [Moles/Vol] 3.7 mmol/L Normal 3.3-5.1 [facility] Comment on above: Performed By: #### L 501.080 #### [facility] [address] [place], [address] Sodium [Moles/Vol] 138 mmol/L Normal 133-145 [facility] Comment on above: Performed By: #### L 501.080 #### [facility] [address] [place], [address] Urea nitrogen [Mass/Vol] 15 mg/dL Normal 4-19 [facility] Comment on above: Performed By: #### L 501.080 #### [facility] [address] [place], [address] Basophil percentageOrdered B y: Des Hamm on 07-03-2024 Basophils/100 WBC (Bld) 0.6 % 0-1 [facility] Bedside Glucoseon 07-03-2024 FINGERSTICK GLU 133 mg/dL High 74-106 [facility] Comment on above: Result Comment: SYLVESTER GEMENT OF PATIENT CARE PER NURSING PROTOCOL Performed By: #### L 501.5200, L501.9520 #### [facility] [address] [place], [address] FINGERSTICK GLU 164 mg/dL High 74-106 [facility] Comment on above: Result Comment: SYLVESTER GEMENT OF PATIENT CARE PER NURSING PROTOCOL Performed By: #### L 501.080 #### [facility] [address] [place], [address] FINGERSTICK GLU 148 mg/dL High 74-106 [facility] Comment on above: Result Comment: SYLVESTER GEMENT OF PATIENT CARE PER NURSING PROTOCOL Performed By: #### L 501.5200, L501.9520 #### [facility] [address] [place], [address] CBC W/Diff, Automatedon 06-07 Absolute Lymph 1.72 X10 3/uL Normal 0.83-4.51 [facility] Comment on above: Performed By: #### L 501.080 #### [facility] [address] [place], [address] Absolute Neut 7.2 X10 3/uL Normal 2.0-7.7 [facility] Comment on above: Performed By: #### L 501.080 #### [facility] [address] [place], [address] Basophils/100 WBC (Bld) 0.6 % Normal 0-1 [facility] Comment on above: Performed By: #### L 501.080 #### [facility] [address] [place], [address] Eosinophils/100 WBC (Bld) 2.0 % Normal 0-5 [facility] Comment on above: Performed By: #### L 501.080 #### [facility] [address] [place], [address] Erythrocyte distribution width (RBC) [Ratio] 13.9 % Normal 11.6-14.6 [facility] Comment on above: Performed By: #### L 501.080 #### [facility] [address] [place], [address] Hematocrit (Bld) [Volume fraction] 45.2 % Normal 40-54 [facility] Comment on above: Performed By: #### L 501.080 #### [facility] [address] [place], [address] Hemoglobin (Bld) [Mass/Vol] 14.5 g/dL Normal 13.0-16.5 [facility] Comment on above: Performed By: #### L 501.080 #### [facility] [address] [place], [address] IG% 0.400 Normal 0.0-0.9 [facility] Comment on above: Result Comment: IG% - Immature Granulocytes (promyelocytes, myelocytes and metamyelocytes) > 1% indicates that a LEFT SHIFT is Present. Performed By: #### L 501.080 #### [facility] [address] [place], [address] Lymphocytes/100 WBC (Bld) 17.0 % Low 19-41 [facility] Comment on above: Performed By: #### L 501.080 #### [facility] [address] [place], [address] MCH (RBC) [Entitic mass] 26.3 pg Low 27.0-32.0 [facility] Comment on above: Performed By: #### L 501.080 #### [facility] [address] [place], [address] MCHC (RBC) [Mass/Vol] 32.1 g/dL Normal 32-36 [facility] Comment on above: Performed By: #### L 501.080 #### [facility] [address] [place], [address] MCV (RBC) [Entitic vol] 81.9 fL Normal 80-94 [facility] Comment on above: Performed By: #### L 501.080 #### [facility] [address] [place], [address] Monocytes/100 WBC (Bld) 8.4 % Normal 0-10 [facility] Comment on above: Performed By: #### L 501.080 #### [facility] [place], [address] Neutrophils/100 WBC (Bld) 71.6 % High 47-70 [facility] Comment on above: Performed By: #### L 501.080 #### [facility] [address] [place], [address] Nucleated RBC (Bld) [#/Vol] 0 10*3/uL Normal 0-5 [facility] Comment on above: Performed By: #### L 501.080 #### [facility] [address] [place], [address] Platelet mean volume (Bld) [Entitic vol] 11.4 fL Normal 6.2-12.0 [facility] Comment on above: Performed By: #### L 501.080 #### [facility] [address] [place], [address] Platelets (Bld) [#/Vol] 206 10*3/uL Normal 150-450 [facility] Comment on above: Performed By: #### L 501.080 #### [facility] [address] [place], [address] RBC (Bld) [#/Vol] 5.52 10*6/uL Normal 4.6-6.2 [facility] Comment on above: Performed By: #### L 501.080 #### [facility] [address] [place], [address] RDW SD 40.5 fl Normal 35.1-43.9 [facility] Comment on above: Performed By: #### L 501.080 #### [facility] [address] [place], [address] WBC (Bld) [#/Vol] 10.1 10*3/uL Normal 4.4-11.0 [facility] Comment on above: Performed By: #### L 501.080 #### [facility] [address] [place], [address] Eosinophil percentageOrdered By: Des Hamm on 07-03-2024 Eosinophils/100 WBC (Bld) 2.0 % 0-5 [facility] Hemoglobin A1con 07-03-2024 HbA1c (Bld) [Mass fraction] 11.1 % High <=5.6 [facility] Comment on above: Result Comment: Norm al < 5.7 % Prediabetic 5.7 - 6.4 % Diabetic >or= 6.5 % Please note range changes. Performed By: #### L 501.080 #### [facility] [address] [place], [address] Hemoglobin A1c percentageOrd ered By: Des Hamm on 07-03-2024 HbA1c (Bld) [Mass fraction] 11.1 % High <5.7 [facility] Comment on above: Normal < 5.7 % Predi abetic 5.7 - 6.4 % Diabetic >or= 6.5 % Please note range changes. Immature granulocytes/100 WB C Auto (Bld)Ordered By: Des Hamm on 07-03-2024 Immature granulocytes/100 WBC (Bld) 0.400 % 0.0-0.9 [facility] Comment on above: IG% - Immature Granu locytes (promyelocytes, myelocytes and metamyelocytes) > 1% indicates that a LEFT SHIFT is Present. Monocyte percentageOrdered B y: Des Spearsneyda on 07-03-2024 Monocytes/100 WBC (Bld) 8.4 % 0-10 [facility] Neutrophil percentageOrdered By: Des Thomsonyas on 07-03-2024 Neutrophils/100 WBC (Bld) 71.6 % High 47-70 [facility] Nucleated red blood cell per centageOrdered By: Desavril Spearsneyda on 07-03-2024 Nucleated RBC/100 WBC (Bld) [Ratio] 0 % 0-5 [facility] 12 Lead EKGon 07-02-2024 12 Lead EKG [facility] [address] [place] [address] 12 Lead EKG 07/02/24 1337 MR#: [id number] Acct: [id number] Name: MAXWELL SANDHU Rep #: [id number] : 1970 54 From: Kei Velasquez MD Attending Dr: Dr. Lawrence Cary, Status : DIS IN Ordering Dr: Derek Gray DO Date: 5 Location: [facility] Sex: M C Admitted: 07/02/24 Test Reason : COUGH Blood Pressure : */* mmHG Vent. Rate : 59 BPM Atrial Rate : 236 BPM P-R Int : * ms QRS Dur : 102 ms QT Int : 452 ms P-R-T Axes : 46 110 -29 degrees QTcB Int : 447 ms Atrial flutter with 4:1 A-V conduction Left posterior fascicular block Possible Anterior infarct , age undetermined Abnormal ECG Confirmed by Kei Velasquez ([id number]), purchasing expeditor WINDY THOMAS ([id number]) on 07/08/2024 11:23:53 AM Referred By: Confirmed By: Kei Velasquez 07/08/24 1123 Date Kei Velasquez MD CC: Dr. Lawrence Cary, DO; Dr. Derek Gray DO; Dr. Curtis Hernandez MD Signed Normal [facility] Absolute lymphocyte countOrd ered By: Derek Gray on 07-02-2024 Lymphocytes Auto (Unsp spec) [#/Vol] 1.47 10*3/uL 0.83-4.51 [facility] Absolute neutrophil countOrd ered By: Dereklai Gray on 07-02-2024 Neutrophils (Bld) [#/Vol] 7.7 10*3/uL 2.0-7.7 [facility] Activated partial thrombopla stin time (aPTT) in platelet poor plasma by coagulation aOrdered By: Derek Gray on 07-02-2024 aPTT Coag (PPP) [Time] 34.4 s 24.1-36.2 [facility] Anion gap in Serum or Plasma Ordered By: Derek Uche on 07-02-2024 Anion gap [Moles/Vol] 11 mmol/L 5-15 [facility] Automated lymphocyte count a s percentage of total leukocytesOrdered By: Derek Gray on 07-02-2024 Lymphocytes/100 WBC Auto (Unsp spec) 14.5 % Low 19-41 [facility] BUN/creatinine ratioOrdered By: Derek Gray on 07-02-2024 Urea nitrogen/Creatinine [Mass ratio] 23.5 mg/mg High 10-20 [facility] Basic Metabolic Profile (BMP )on 07-02-2024 BUN/CRE 23.5 RATIO High 10- [facility] Comment on above: Performed By: #### L 501.080 #### [facility] [address] [place], [address] Calcium [Mass/Vol] 9.2 mg/dL Normal 7.6-11.0 [facility] Comment on above: Performed By: #### L 501.080 #### [facility] [address] [place], [address] Chloride [Moles/Vol] 103 mmol/L Normal 98-108 [facility] Comment on above: Performed By: #### L 501.080 #### [facility] [address] [place], [address] CO2 [Moles/Vol] 25.2 mmol/L Normal 21.0-32.0 [facility] Comment on above: Performed By: #### L 501.080 #### [facility] [address] [place], [address] Creatinine [Mass/Vol] 0.66 mg/dL Low 0.70-1.20 [facility] Comment on above: Performed By: #### L 501.080 #### [facility] [address] [place], [address] ECRCL 200.49 ml/min Normal 50-250 [facility] Comment on above: Performed By: #### L 501.080 #### [facility] [address] [place], [address] GAP 11 Normal 5-15 [facility] Comment on above: Performed By: #### L 501.080 #### [facility] [address] [place], [address] GFR/1.73 sq M.predicted among non-blacks MDRD (S/P/Bld) [Vol rate/Area] 111 mL/min/{1.73_m2} Normal >60 [facility] Comment on above: Result Comment: mL/m in/1.73m2 CKD-EPI Creatinine Equation (2020) Performed By: #### L 501.080 #### [facility] [address] [place], [address] Glucose [Mass/Vol] 182 mg/dL High 70-99 [facility] Comment on above: Performed By: #### L 501.080 #### [facility] [address] [place], [address] Potassium [Moles/Vol] 4.2 mmol/L Normal 3.3-5.1 [facility] Comment on above: Performed By: #### L 501.080 #### [facility] [address] [place], [address] Sodium [Moles/Vol] 139 mmol/L Normal 133-145 [facility] Comment on above: Performed By: #### L 501.080 #### [facility] [address] [place], [address] Urea nitrogen [Mass/Vol] 16 mg/dL Normal 4-19 [facility] Comment on above: Performed By: #### L 501.080 #### [facility] [address] [place], [address] Basophil percentageOrdered B y: Derek Gray on 07-02-2024 Basophils/100 WBC (Bld) 1.0 % 0-1 [facility] Bedside Glucoseon 07-02-2024 FINGERSTICK GLU 174 mg/dL High 74-106 [facility] Comment on above: Result Comment: SYLVESTER ALMONTE OF PATIENT CARE PER NURSING PROTOCOL Performed By: #### L 400.0001 #### [facility] [address] [place], [address] CBC W/Diff, Automatedon 05- Absolute Lymph 1.47 X10 3/uL Normal 0.83-4.51 [facility] Comment on above: Performed By: #### L 501.080 #### [facility] [address] [place], [address] Absolute Neut 7.7 X10 3/uL Normal 2.0-7.7 [facility] Comment on above: Performed By: #### L 501.080 #### [facility] [address] [place], [address] Basophils/100 WBC (Bld) 1.0 % Normal 0-1 [facility] Comment on above: Performed By: #### L 501.080 #### [facility] [address] [place], [address] Eosinophils/100 WBC (Bld) 1.4 % Normal 0-5 [facility] Comment on above: Performed By: #### L 501.080 #### [facility] [address] [place], [address] Erythrocyte distribution width (RBC) [Ratio] 14.0 % Normal 11.6-14.6 [facility] Comment on above: Performed By: #### L 501.080 #### [facility] [address] [place], [address] Hematocrit (Bld) [Volume fraction] 45.4 % Normal 40-54 [facility] Comment on above: Performed By: #### L 501.080 #### [facility] [address] [place], [address] Hemoglobin (Bld) [Mass/Vol] 14.7 g/dL Normal 13.0-16.5 [facility] Comment on above: Performed By: #### L 501.080 #### [facility] [address] [place], [address] IG% 0.300 Normal 0.0-0.9 [facility] Comment on above: Result Comment: IG% - Immature Granulocytes (promyelocytes, myelocytes and metamyelocytes) > 1% indicates that a LEFT SHIFT is Present. Performed By: #### L 501.080 #### [facility] [address] [place], [address] Lymphocytes/100 WBC (Bld) 14.5 % Low 19-41 [facility] Comment on above: Performed By: #### L 501.080 #### [facility] [address] [place], [address] MCH (RBC) [Entitic mass] 26.6 pg Low 27.0-32.0 [facility] Comment on above: Performed By: #### L 501.080 #### [facility] [address] [place], [address] MCHC (RBC) [Mass/Vol] 32.4 g/dL Normal 32-36 [facility] Comment on above: Performed By: #### L 501.080 #### [facility] [address] [place], [address] MCV (RBC) [Entitic vol] 82.1 fL Normal 80-94 [facility] Comment on above: Performed By: #### L 501.080 #### [facility] [address] [place], [address] Monocytes/100 WBC (Bld) 7.7 % Normal 0-10 [facility] Comment on above: Performed By: #### L 501.080 #### [facility] [address] [place], [address] Neutrophils/100 WBC (Bld) 75.1 % High 47-70 [facility] Comment on above: Performed By: #### L 501.080 #### [facility] [address] [place], [address] Nucleated RBC (Bld) [#/Vol] 0 10*3/uL Normal 0-5 [facility] Comment on above: Performed By: #### L 501.080 #### [facility] [address] [place], [address] Platelet mean volume (Bld) [Entitic vol] 12.0 fL Normal 6.2-12.0 [facility] Comment on above: Performed By: #### L 501.080 #### [facility] [address] [place], [address] Platelets (Bld) [#/Vol] 214 10*3/uL Normal 150-450 [facility] Comment on above: Performed By: #### L 501.080 #### [facility] [address] [place], [address] RBC (Bld) [#/Vol] 5.53 10*6/uL Normal 4.6-6.2 [facility] Comment on above: Performed By: #### L 501.080 #### [facility] [address] [place], [address] RDW SD 40.9 fl Normal 35.1-43.9 [facility] Comment on above: Performed By: #### L 501.080 #### [facility] [address] [place], [address] WBC (Bld) [#/Vol] 10.2 10*3/uL Normal 4.4-11.0 [facility] Comment on above: Performed By: #### L 501.080 #### [facility] [address] [place], [address] CTA Chest W/WO Contraston CTA Chest W/WO Contrast [facility] Imaging Services [address] [place] [address] CTA Chest W/WO Contrast MR#: [id number] Acct: [id number] Name: MAXWELL SANDHU Rep #: [id number] : 1970 M 54 From: Grant marquez MD PCP: Dr. Curtis Hernandez MD Status: [facility] ER Study: CTA Chest W/WO Contrast Date of Exam: 07/02/24 Exam# [id number] Ordering Dr: Derek Grya DO PROCEDURE: CTA CHEST W/WO CONTRAST 07/02/2024 REASON FOR EXAM: PE, HISTORY OF PE TECHNIQUE: CTA axial imaging of the chest with intravenous contrast. Multiplanar and multisequence images were obtained. PATIENT PREPARATION: Per protocol CONTRAST: Isovue 370 VOLUME: 100 mL One or more dose reduction techniques were used (e.g., Automated exposure control, adjustment of the mA and/or kV according to patient size, use of iterative reconstruction technique). RADIATION DOSE SUMMARY: CTDlvol: 23 mGy DLP: 535.79 mGycm . COMPARISON: Prior study dated June 03, 2024. FINDINGS: Hardware: None Lymph nodes: Small benign-appearing mediastinal lymph nodes. Heart: Mild cardiomegaly. Coronary artery calcification. Thoracic Aorta: No thoracic aortic aneurysm or dissection. Pulmonary Vessels: No evidence of pulmonary embolism. Lungs and Airways: Small bilateral pleural effusions right greater than left with bibasilar infiltration and/or atelectasis. Upper Abdomen: Unremarkable Bones: Bone windows are unremarkable. CT/CTA Chest W/WO Contrast IMPRESSION: Bilateral pleural effusions right greater than left with bibasilar infiltration and/or atelectasis. No evidence of pulmonary embolism. Reading Location: [place] [address] CC: Dr. Derek Gray DO; Dr. Curtis Hernandez MD [employer] Worker: Signed Normal [facility] Carbon dioxide, total [Moles /volume] in Central venous bloodOrdered By: Derek Gray on 07-02-2024 CO2 [Moles/Vol] 25.2 mmol/L 21.0-32.0 [facility] Chloride assayOrdered By: Romeo Gray on 07-02-2024 Chloride [Moles/Vol] 103 mmol/L 98-108 [facility] Emergency Department Summary on 07-02-2024 Emergency Department Summary [facility] Medical Records Department [address] [place] [address] Emergency Department Summary 07/02/24 MR#: [id number] Acct: [id number] Name: MAXWELL SANDHU Rep #: [id number] : 1970 54 From: Derek Gray DO PCP: Dr. Curtis Hernandez MD Status:REG ER Location: ED HPI History of Present Illness Chief Complaint: Shortness of Breath Narrative Narrative: Chief complaint and HPI: Shortness of breath. History taken by patient as well as medical record. 54-year-old gentleman with history of DM2, HTN, recent diagnosis of atrial fibrillation and PE on E liquis presents for evaluation of shortness of breath. Onset of shortness of breath approximately 2 days ago. Shortness of breath is worse when lying flat and with ambulation. Patient states he has had some nasal congestion but otherwise denies fever, chills, cough, chest pain. States he has not missed any of his Eliquis doses. Has been taking his medication. On chart review from discharge from 06/04 patient was admitted to our hospital due to new onset a flutter/A-fib and bilateral PE. He had bilateral venous duplex that was negative for DVT. He had an echocardiogram that showed moderate concentric left ventricular hypertrophy with an EF of 50% and stage I diastolic dysfunction. He was placed on Eliquis and diltiazem. Review of systems: See HPI Medications: As listed on the chart Allergies: As listed on the chart PFSH: Per chart Vital signs: As listed on the chart. Reviewed. Physical exam: Gen: A O x3, NAD Head: Normocephalic, atraumatic Eyes: No sclera icterus, conjunctiva clear ENT: Moist mucous membranes, + nasal congestion Neck: Trachea midline, No JVD CV: RRR, no murmurs, no peripheral edema Resp: Lungs CTA BL, no w/r/c, on 2 L nasal cannula GI: Abd soft, non-distended, non-tender, no r/r/g Musc: Full ROM, no deformity Skin: Warm, dry Neuro: Alert, oriented, grossly intact, sensation intact Psych: Cooperative, appropriate mood and affect [facility] Medical History Sleep apnea Seizures Stroke/cerebrovascular accident Hypertension High cholesterol Diabetes Home Medications ???Medication ???Instructions ???Recorded ???Last Taken ???Type levetiracetam 500 mg tablet 500 mg PO BID keppra 11/01/2305/08 History aspirin 81 mg chewable tablet 1 tab PO DAILY heart health Unknown History atorvastatin 40 mg tablet 40 mg PO QHS choleterol 06/03/24 0 05/27/24 History apixaban 5 mg tablet 5 mg PO BID #134 tabs 06/04/24 Unk nown Rx diltiazem HCl 120 mg 120 mg PO Q12 120 days #240 caps 0 06/04/24 Unknown Rx capsule,extended release 24 hr insulin glargine 100 unit/mL (3 25 unit (0.25 mL) subcut DAILY 05/20/24 Rx mL) subcutaneous pen (Lantus diabetes #15 mL Solostar U-100 Insulin) insulin lispro 100 unit/mL 10 unit subcut TID diabetes #15 mL 06/04/24 05/20/24 Rx subcutaneous pen empagliflozin 10 mg tablet 10 mg PO DAILY 07/02/24 Unknown Hi story (Jardiance) Allergy/AdvReac Type Severity Reaction Status Date / Time No Known Allergies Allergy Verified 07/02/24 12:49 Surgical History Hx of neck surgery Social History household members: spouse and family housing: house Smoking Status: Never smoker EXAM Physical Exam Const Vital Signs: 07/02/24 12:44 07/02/24 12:57 07/02/24 12:57 Temperature 97.9 F 98.6 F Temperature Source Oral Oral Pulse Rate 117 H 74 Respiratory Rate 20 H 19 H Respiratory Effort Normal Non-Labored Respiratory Depth Normal Respiratory Pattern Normal Blood Pressure 131/68 H 130/79 H Blood Pressure Mean 89 96 Pulse Ox 88 90 Oxygen Delivery Method Room Air Nasal Cannula Room Air Oxygen Flow Rate (L/min) 2 07/02/24 13:15 07/02/24 13:16 07/02/24 13:37 Temperature Temperature Source Pulse Rate Respiratory Rate Respiratory Effort Respiratory Depth Respiratory Pattern Blood Pressure Blood Pressure Mean Pulse Ox 88 90 90 Oxygen Delivery Method Nasal Cannula Nasal Cannula Nasal Cannula Oxygen Flow Rate (L/min) 2 3 3 07/02/24 13:49 07/02/24 14:00 Temperature 98.6 F 98.3 F Temperature Source Oral Oral Pulse Rate 59 L 59 L Respiratory Rate 28 H 20 H Respiratory Effort Respiratory Depth Respiratory Pattern Blood Pressure 130/78 H 143/85 H Blood Pressure Mean 95 104 Pulse Ox 90 90 Oxygen Delivery Method Nasal Cannula Nasal Cannula Oxygen Flow Rate (L/min) 3 3 MDM MDM MDM Narrative Medical decision making narrative: 54-year-old gentleman with history of DM2, HTN, recent diagn (more content not included)... Normal [facility] Eosinophil percentageOrdered By: [place] on 07-02-2024 Eosinophils/100 WBC (Bld) 1.4 % 0-5 [facility] Erythrocyte distribution wid th ratioOrdered By: [facility] on 07-02-2024 Erythrocyte distribution width (RBC) [Ratio] 14.0 % 11.6-14.6 [facility] Erythrocyte distribution wid th standard deviationOrdered By: [facility] on 07-02-2024 Erythrocyte distribution width (RBC) [Ratio] 40.9 fl 35.1-43.9 [facility] Glomerular filtration rate ( GFR) estimation/1.73 sq m using serum, plasma, or whole bOrdered By: [facility]enn[facility] on 07-02-2024 GFR/1.73 sq M.predicted among non-blacks MDRD (S/P/Bld) [Vol rate/Area] 111 mL/min/{1.73_m2} >60 [facility] Comment on above: mL/min/1.73m2 CKD-EP I Creatinine Equation (2020) H AND P Exam - [facility] 07-02-2024 H&P Exam - Hospitalist [facility] Medical Records Department [address] [place] [address] H P Exam - Hospitalist 07/02/24 1609 MR#: [id number] Acct: [id number] Name: MAXWELL SANDHU Rep #: [id number] : 1970 54 From: Des Hamm DO PCP: Dr. Curtis Hernandez MD Status:REG ER Location: ED HPI - General General Date of Service: 07/02/24 Chief Complaint: Shortness of breath HPI Narrative MAWXELL SANDHU, is a 54 M who presents with shortness of breath over the past 2 days. Has not slept and is unable to lay flat because he gets more short of breath laying flat. Presented to the emergency room where he underwent a CTA of the chest that showed increased bilateral pleural effusions. And on his intake weight appears that he is put on roughly 10 kg since his discharge on June 04. Patient received one-time dose of 40 mg IV furosemide. [facility] Medical History Sleep apnea Seizures Stroke/cerebrovascular accident Hypertension High cholesterol Diabetes Home Medications ???Medication ???Instructions ???Recorded ???Last Taken ???Type levetiracetam 500 mg tablet 500 mg PO BID keppra 11/01/23/08/30 History aspirin 81 mg chewable tablet 1 tab PO DAILY heart health 07/02/24 History atorvastatin 40 mg tablet 40 mg PO QHS choleterol 06/03/24 0 07/02/24 History apixaban 5 mg tablet 5 mg PO BID #134 tabs 06/04/24 Rx diltiazem HCl 120 mg 120 mg PO Q12 120 days #240 caps 0 06/04/24 07/02/24 Rx capsule,extended release 24 hr insulin glargine 100 unit/mL (3 25 unit (0.25 mL) subcut DAILY 07/02/24 Rx mL) subcutaneous pen (Lantus diabetes #15 mL Solostar U-100 Insulin) insulin lispro 100 unit/mL 10 unit subcut TID diabetes #15 mL 06/04/24 07/02/24 Rx subcutaneous pen empagliflozin 10 mg tablet 10 mg PO DAILY 07/02/24 Unknown Hi story (Jardiance) Allergy/AdvReac Type Severity Reaction Status Date / Time No Known Allergies Allergy Verified 07/02/24 12:49 Family History (Updated 07/02/24 @ 16:[address] Des Hamm DO) Other Heart disease Surgical History Hx of neck surgery Social History household members: spouse and family housing: house Smoking Status: Never smoker ROS ROS Narrative No fever or chills. No chest pain. No abdominal pain. All review of systems were negative except as mentioned above in the history of present illness and the other review of systems. Vital Signs Vital Signs Vital Signs: 07/02/24 12:44 07/02/24 12:57 07/02/24 12:57 Temperature 36.6 C 37.0 C Temperature Source Oral Oral Pulse Rate 117 H 74 Respiratory Rate 20 H 19 H Respiratory Effort Normal Non-Labored Respiratory Depth Normal Respiratory Pattern Normal Blood Pressure 131/68 H 130/79 H Blood Pressure Mean 89 96 Pulse Ox 88 90 Oxygen Delivery Method Room Air Nasal Cannula Room Air Oxygen Flow Rate (L/min) 2 07/02/24 13:15 07/02/24 13:16 07/02/24 13:37 Temperature Temperature Source Pulse Rate Respiratory Rate Respiratory Effort Respiratory Depth Respiratory Pattern Blood Pressure Blood Pressure Mean Pulse Ox 88 90 90 Oxygen Delivery Method Nasal Cannula Nasal Cannula Nasal Cannula Oxygen Flow Rate (L/min) 2 3 3 07/02/24 13:49 07/02/24 14:00 07/02/24 15:00 Temperature 37.0 C 36.8 C 37.0 C Temperature Source Oral Oral Oral Pulse Rate 59 L 59 L 74 Respiratory Rate 28 H 20 H 18 Respiratory Effort Respiratory Depth Respiratory Pattern Blood Pressure 130/78 H 143/85 H 107/77 Blood Pressure Mean 95 104 87 Pulse Ox 90 90 90 Oxygen Delivery Method Nasal Cannula Nasal Cannula Nasal Cannula Oxygen Flow Rate (L/min) 3 3 3 07/02/24 16:02 Temperature 37.0 C Temperature Source Pulse Rate 74 Respiratory Rate 18 Respiratory Effort Respiratory Depth Respiratory Pattern Blood Pressure 107/77 Blood Pressure Mean 87 Pulse Ox 90 Oxygen Delivery Method Oxygen Flow Rate (L/min) Weight Weight: 170.9 kg Body Mass Index (BMI) 55.6 Physical Exam Narrative POCUS: Limited POCUS exam was for heart failure. Using curvilinear probe (as no cardiac probe was available on the ED ultrasound) IVC was dilated and noncompressible with inspiration. Subxiphoid view of the heart. Show that was grossly normal. - Physical Exam General: Alert, Oriented x3, Cooperative HEENT: Atraumatic, PERRLA, EOMI, Normocephalic Oral: Moist Mucosa, No Gingival or Mucosal Lesions/ Ulcerations Neck: Supple, No JVD, Negative Carotid Bruits Lungs: Bibasilar crackles, Normal air movement (more content not included)... Normal [facility] Hematocrit Auto (Bld) [Volum e fraction]Ordered By: Derek Gray on 07-02-2024 Hematocrit (Bld) [Volume fraction] 45.4 % 40-54 [facility] Hemoglobin measurementOrdere d By: [facility]oun[facility] on 07-02-2024 Hemoglobin (Bld) [Mass/Vol] 14.7 g/dL 13.0-16.5 [facility] Immature granulocytes/100 WB C Auto (Bld)Ordered By: [facility] Hospital[facility] on 07-02-2024 Immature granulocytes/100 WBC (Bld) 0.300 % 0.0-0.9 [facility] Comment on above: IG% - Immature Granu locytes (promyelocytes, myelocytes and metamyelocytes) > 1% indicates that a LEFT SHIFT is Present. Influenza virus A and B and SARS-CoV-2 (COVID-19) and Respiratory syncytial virus RNAOrdered By: Derek Gray on 07-02-2024 SARS-CoV-2 (COVID-19) RNA WILLY+probe Ql (Unsp spec) [facility] International normalized rat io (INR) calculationOrdered By: [facility] Hospital[facility]ounika on 07-02-2024 INR Coag (Bld) [Relative time] 1.3 {INR} [facility] L499.0042on 07-02-2024 Trop T High Sen 56 ng/L Invalid Interpretation Code <=22 [facility] Comment on above: Result Comment: Crit ical Result(s) Called at: 1642 by: HOMERO OLEARY??Results read back by same. Performed By: #### L 501.5200, L501.9520 #### [facility] [place], [place], [id number] L501.4021on 07-02-2024 Trop T High Sen 54 ng/L Invalid Interpretation Code <=22 [facility] Comment on above: Result Comment: Crit ical Result(s) Called at 1425: by: ROSELINE LARRY.??Results read back by same. Performed By: #### L 501.080 #### [facility] [address] [place], [address] L503.7505on 07-02-2024 Natriuretic peptide B (Bld) [Mass/Vol] 2002 pg/mL High <=900 [facility] Comment on above: Result Comment: Hear t Failure Unlikely: < 300 pg/mL Heart Failure Likely < 50 Years: > 450 pg/mL 50-75 Years: > 900 pg/mL >75 Years: > 1800 pg/mL Performed By: #### L 501.080 #### [facility] [address] [place], [place], [address] M100.678on 07-02-2024 M100.678 Pending SARS-CoV-2 (COVID 19) Negative INFLUENZA A Negative INFLUENZA B Negative RSV PCR Negative Normal [facility] Comment on above: Performed By: #### L 501.080 #### [facility] [address] [place], [address] MCV (mean corpuscular volume ) determinationOrdered By: Derek Gray on 07-02-2024 MCV (RBC) [Entitic vol] 82.1 fL 80-94 [facility] Mean corpuscular hemoglobin (MCH) determinationOrdered By: Derek Gray on 07-02-2024 MCH (RBC) [Entitic mass] 26.6 pg Low 27.0-32.0 [facility] Mean corpuscular hemoglobin concentration (MCHC) determinationOrdered By: [place] on 07-02-2024 MCHC (RBC) [Mass/Vol] 32.4 g/dL 32-36 [facility] Mean platelet volume determi nationOrdered By: Derek Gray on 07-02-2024 Platelet mean volume (Bld) [Entitic vol] 12.0 fL 6.2-12.0 [facility] Monocyte percentageOrdered B y: Derek Gray on 07-02-2024 Monocytes/100 WBC (Bld) 7.7 % 0-10 [facility] Natriuretic peptide.B prohor damien N-Terminal [Mass/volume] in Serum or PlasmaOrdered By: Derek Gray on 07-02-2024 Natriuretic peptide.B prohormone N-Terminal [Mass/Vol] 2002 pg/mL High <900 [facility] Comment on above: Heart Failure Unlike ly: < 300 pg/mLHeart Failure Likely< 50 Years: > 450 pg/mL50-75 Years: > 900 pg/mL>75 Years: > 1800 pg/mL Neutrophil percentageOrdered By: Derek Gray on 07-02-2024 Neutrophils/100 WBC (Bld) 75.1 % High 47-70 [facility] Nucleated red blood cell per centageOrdered By: [facility] HospitalU[facility] on 07-02-2024 Nucleated RBC/100 WBC (Bld) [Ratio] 0 % 0-5 [facility] Partial Thromboplast Timeon 07-02-2024 aPTT Coag (Bld) [Time] 34.4 s Normal 24.1-36.2 [facility] Comment on above: Performed By: #### L 501.080 #### [facility] [address] [place], [place], [id number] Platelet countOrdered By: Romeo Gray on 07-02-2024 Platelets (Bld) [#/Vol] 214 10*3/uL 150-450 [facility] Potassium measurement (mass/ volume)Ordered By: Derek Gray on 07-02-2024 Potassium (Unsp spec) [Mass/Vol] 4.2 mmol/L 3.3-5.1 [facility] Prothrombin Time w/INRon INR Coag (PPP) [Relative time] 1.3 {INR} Normal [facility] Comment on above: Performed By: #### L 501.080 #### [facility] [address] [place], [place], [id number] PT Coag (PPP) [Time] 16.1 s High 11.7-14.9 [facility] Comment on above: Performed By: #### L 501.080 #### [facility] [address] [place], [address] Prothrombin timeOrdered By: Derek Gray on 07-02-2024 PT Coag (PPP) [Time] 16.1 s High 11.7-14.9 [facility] RBC Auto (Bld) [#/Vol]Ordere d By: Derek Gray on 07-02-2024 RBC (Bld) [#/Vol] 5.53 10*6/uL 4.6-6.2 [facility] Serum creatinine measurement (mass/volume)Ordered By: Derek Gray on 07-02-2024 Creatinine [Mass/Vol] 0.66 mg/dL Low 0.70-1.20 [facility] Serum glucose measurement (m ass/volume)Ordered By: Derek Gray on 07-02-2024 Glucose [Mass/Vol] 182 mg/dL High 70-99 [facility] Serum or plasma calcium gloria urement (mass/volume)Ordered By: Derek Rodriguez on 07-02-2024 Calcium [Mass/Vol] 9.2 mg/dL 7.6-11.0 [facility] Serum or plasma urea nitroge n measurement (mass/volume)Ordered By: Derek Gray on 07-02-2024 Urea nitrogen [Mass/Vol] 16 mg/dL 4-19 [facility] Sodium levelOrdered By: Artur Gray on 07-02-2024 Sodium [Moles/Vol] 139 mmol/L 133-145 [facility] Troponin T.cardiac [Mass/vol ume] in Serum or Plasma by High sensitivity methodOrdered By: Derek Gray on 07-02-2024 Troponin T.cardiac High sensitivity method [Mass/Vol] 56 ng/L High <22 [facility] Comment on above: Critical Result(s) C alled at: 1642 by: HOMERO ZHOU THALIA OLEARY Results read back by same. Troponin T.cardiac High sensitivity method [Mass/Vol] 54 ng/L High <22 [facility] Comment on above: Critical Result(s) C alled at 1425: by: ROSELINE TANNER TO LARON. Results read back by same. White blood cell (WBC) count Ordered By: Derek Gray on 07-02-2024 WBC (Bld) [#/Vol] 10.2 10*3/uL 4.4-11.0 [facility] JAK2 Mutation Analysison JAK2 COMMENT Comment Normal . [facility] Comment on above: Result Comment: Tech nical Component performed at [facility] Professional Component performed by: Stephen Castro, PhD, [facility] Director, Molecular Oncology [facility] [place], [address] [facility] [address] This test was developed and its performance characteristics determined by [employer]. It has not been cleared or approved by the Food and Drug Administration. Performed at: - [facility] [address] [facility], [place] [id number] District Or District Office Director: Bruna Junior [facility], Phone: [phone] Performed at: - [facility] [address] [place], [place] [id number] District Or District Office Director: Bruna Junior [facility], Phone: [phone] Performed By: #### L 501.5200, L501.9520 #### [facility] [address] [place], [address] JAK2 COMMENT 2 Comment Normal . [facility] Comment on above: Result Comment: JAK2 is a cytoplasmic tyrosine kinase with a berg role in signal transduction from multiple hematopoietic growth factor receptors. A point mutation within exon 14 of the JAK2 gene ([id number]) encoding a valine to phenylalanine substitution at position 617 of the JAK2 protein (V617F) has been identified in most patients with polycythemia vera, and in about half of those with either essential thrombocythemia or idiopathic myelofibrosis. The V617F has also been detected, although infrequently, in other myeloid disorders such as chronic myelomonocytic leukemia and chronic neutrophilic luekemia. V617F is an acquired mutation that alters a highly conserved valine present in the negative regulatory JH2 domain of the JAK2 protein and is predicted to dysregulate kinase activity. Methodology: Total genomic DNA was extracted and subjected to TaqMan real-time PCR amplification/detection. Two amplification products per sample were monitored by real-time PCR using primers/probes specific to JAK2 wild type (WT) and JAK2 mutant V617F. The [id number] Absolute Quantitation software will compare the patient specimen valuse to the standard curves and generate percent values for wild type and mutant type. In vitro studies have indicated that this assay has an analytical sensitivity of 1%. References: Jesse EJ, Herman LM, Ap PJ, et al. Acquired mutation of the tyrosine kinase JAK2 in human myeloproliferative disorders. Lancet. 2005 Apr 24; 365(4311):2479-0975. Zachary Miller, Don V, Becky Lorenzo JP. A unique clonal JAK2 mutation leading to constitutive signaling causes polycythaemia vera. Nature. 2005 Jun 03; 485(8778):6765-4171. Ted R, Venkatesh F, Richard , et al. A gain-of- function mutation of JAK2 in myeloproliferative disorders. N Engl J Med. 2005 Jun 03; 35217):0470-6264. Performed By: #### L 501.5200, L501.9520 #### [facility] [address] [place], [place], [id number] JAK2 MUT QUAL Comment Normal . [facility] Comment on above: Result Comment: Resu lt: NEGATIVE for the JAK2 V617F mutation. Interpretation: The G to T nucleotide change encoding the V617F mutation was not detected. This result does not rule out the presence of the JAK2 mutation at a level below the sensitivity of detection of this assay, or the presence of other mutations within JAK2 not detected by this assay. This result does not rule out a diagnosis of polycythemia vera, essential thrombocythemia or idiopathic myelofibrosis as the V617F mutation is not detected in all patients with these disorders. Performed By: #### L 501.5200, L501.9520 #### [facility] [address] [place], [address] Basic Metabolic Profile (BMP )on 06-06-2024 BUN Normal 4-19 [facility] Comment on above: Result Comment: Canc elled via OM: Order cancelled - Patient discharged Performed By: #### L 501.5200, L501.9520 #### [facility] [address] [place], [address] BUN/CRE Normal 10-20 [facility] Comment on above: Result Comment: Canc elled via OM: Order cancelled - Patient discharged Performed By: #### L 501.5200, L501.9520 #### [facility] [address] [place], [address] Calcium Normal 7.6-11.0 [facility] Comment on above: Result Comment: Canc elled via OM: Order cancelled - Patient discharged Performed By: #### L 501.5200, L501.9520 #### [facility] [address] [place], [address] CL Normal 98-108 [facility] Comment on above: Result Comment: Canc elled via OM: Order cancelled - Patient discharged Performed By: #### L 501.5200, L501.9520 #### [facility] [address] [place], [address] CO2 Normal 21.0-32.0 [facility] Comment on above: Result Comment: Canc elled via OM: Order cancelled - Patient discharged Performed By: #### L 501.5200, L501.9520 #### [facility] [address] [place], [address] CREAT,SERUM Normal 0.70-1.20 [facility] Comment on above: Result Comment: Canc elled via OM: Order cancelled - Patient discharged Performed By: #### L 501.5200, L501.9520 #### [facility] [address] [place], [address] eGFR Normal >60 [facility] Comment on above: Result Comment: Canc elled via OM: Order cancelled - Patient discharged Performed By: #### L 501.5200, L501.9520 #### [facility] [address] [place], [address] GAP Normal 5-15 [facility] Comment on above: Result Comment: Canc elled via OM: Order cancelled - Patient discharged Performed By: #### L 501.5200, L501.9520 #### [facility] [address] [place], [address] GLU Normal 70-99 [facility] Comment on above: Result Comment: Canc elled via OM: Order cancelled - Patient discharged Performed By: #### L 501.5200, L501.9520 #### [facility] [address] [place], [address] Potassium Normal 3.3-5.1 [facility] Comment on above: Result Comment: Canc elled via OM: Order cancelled - Patient discharged Performed By: #### L 501.5200, L501.9520 #### [facility] [address] [place], [address] Basic Metabolic Profile (BMP) Normal 133-145 [facility] Comment on above: Result Comment: Canc elled via OM: Order cancelled - Patient discharged Performed By: #### L 501.5200, L501.9520 #### [facility] [address] [place], [address] CBC W/Diff, Automatedon 05-0 -2024 Absolute Neut Normal 2.0-7.7 [facility] Comment on above: Result Comment: Canc elled via OM: Order cancelled - Patient discharged Performed By: #### L 501.5200, L501.9520 #### [facility] [address] [place], [address] HCT Normal 40-54 [facility] Comment on above: Result Comment: Canc elled via OM: Order cancelled - Patient discharged Performed By: #### L 501.5200, L501.9520 #### [facility] [address] [place], [address] HGB Normal 13.0-16.5 [facility] Comment on above: Result Comment: Canc elled via OM: Order cancelled - Patient discharged Performed By: #### L 501.5200, L501.9520 #### [facility] [address] [place], [address] MCH Normal 27.0-32.0 [facility] Comment on above: Result Comment: Canc elled via OM: Order cancelled - Patient discharged Performed By: #### L 501.5200, L501.9520 #### [facility] [address] [place], [address] MCHC Normal 32-36 [facility] Comment on above: Result Comment: Canc elled via OM: Order cancelled - Patient discharged Performed By: #### L 501.5200, L501.9520 #### [facility] [address] [place], [address] MCV Normal 80-94 [facility] Comment on above: Result Comment: Canc elled via OM: Order cancelled - Patient discharged Performed By: #### L 501.5200, L501.9520 #### [facility] [address] [place], [address] NEUT% Normal 47-70 [facility] Comment on above: Result Comment: Canc elled via OM: Order cancelled - Patient discharged Performed By: #### L 501.5200, L501.9520 #### [facility] [address] [place], [address] PLT Normal 150-450 [facility] Comment on above: Result Comment: Canc elled via OM: Order cancelled - Patient discharged Performed By: #### L 501.5200, L501.9520 #### [facility] [address] [place], [address] RBC Normal 4.6-6.2 [facility] Comment on above: Result Comment: Canc elled via OM: Order cancelled - Patient discharged Performed By: #### L 501.5200, L501.9520 #### [facility] [address] [place], [address] RDW CV Normal 11.6-14.6 [facility] Comment on above: Result Comment: Canc elled via OM: Order cancelled - Patient discharged Performed By: #### L 501.5200, L501.9520 #### [facility] [address] [place], [address] RDW SD Normal 35.1-43.9 [facility] Comment on above: Result Comment: Canc elled via OM: Order cancelled - Patient discharged Performed By: #### L 501.5200, L501.9520 #### [facility] [address] [place], [address] WBC Normal 4.4-11.0 [facility] Comment on above: Result Comment: Canc elled via OM: Order cancelled - Patient discharged Performed By: #### L 501.5200, L501.9520 #### [facility] [address] [place], [address] Basic Metabolic Profile (BMP )on 06-05-2024 BUN Normal 4-19 [facility] Comment on above: Result Comment: Canc elled via OM: Order cancelled - Patient discharged Performed By: #### L 501.5200, L501.9520 #### [facility] [address] [place], [address] BUN/CRE Normal 10-20 [facility] Comment on above: Result Comment: Canc elled via OM: Order cancelled - Patient discharged Performed By: #### L 501.5200, L501.9520 #### [facility] [address] [place], [address] Calcium Normal 7.6-11.0 [facility] Comment on above: Result Comment: Canc elled via OM: Order cancelled - Patient discharged Performed By: #### L 501.5200, L501.9520 #### [facility] [address] [place], [address] CL Normal 98-108 [facility] Comment on above: Result Comment: Canc elled via OM: Order cancelled - Patient discharged Performed By: #### L 501.5200, L501.9520 #### [facility] [address] [place], [address] CO2 Normal 21.0-32.0 [facility] Comment on above: Result Comment: Canc elled via OM: Order cancelled - Patient discharged Performed By: #### L 501.5200, L501.9520 #### [facility] [address] [place], [address] CREAT,SERUM Normal 0.70-1.20 [facility] Comment on above: Result Comment: Canc elled via OM: Order cancelled - Patient discharged Performed By: #### L 501.5200, L501.9520 #### [facility] [address] [place], [address] eGFR Normal >60 [facility] Comment on above: Result Comment: Canc elled via OM: Order cancelled - Patient discharged Performed By: #### L 501.5200, L501.9520 #### [facility] [address] [place], [address] GAP Normal 5-15 [facility] Comment on above: Result Comment: Canc elled via OM: Order cancelled - Patient discharged Performed By: #### L 501.5200, L501.9520 #### [facility] [address] [place], [address] GLU Normal 70-99 [facility] Comment on above: Result Comment: Canc elled via OM: Order cancelled - Patient discharged Performed By: #### L 501.5200, L501.9520 #### [facility] [address] [place], [address] Potassium Normal 3.3-5.1 [facility] Comment on above: Result Comment: Canc elled via OM: Order cancelled - Patient discharged Performed By: #### L 501.5200, L501.9520 #### [facility] [address] [place], [address] Basic Metabolic Profile (BMP) Normal 133-145 [facility] Comment on above: Result Comment: Canc elled via OM: Order cancelled - Patient discharged Performed By: #### L 501.5200, L501.9520 #### [facility] [address] [place], [address] CBC W/Diff, Automatedon 04-3 0-2024 Absolute Neut Normal 2.0-7.7 [facility] Comment on above: Result Comment: Canc elled via OM: Order cancelled - Patient discharged Performed By: #### L 501.5200, L501.9520 #### [facility] [address] [place], [address] HCT Normal 40-54 [facility] Comment on above: Result Comment: Canc elled via OM: Order cancelled - Patient discharged Performed By: #### L 501.5200, L501.9520 #### [facility] [address] [place], [address] HGB Normal 13.0-16.5 [facility] Comment on above: Result Comment: Canc elled via OM: Order cancelled - Patient discharged Performed By: #### L 501.5200, L501.9520 #### [facility] [address] [place], [address] MCH Normal 27.0-32.0 [facility] Comment on above: Result Comment: Canc elled via OM: Order cancelled - Patient discharged Performed By: #### L 501.5200, L501.9520 #### [facility] [address] [place], [address] MCHC Normal 32-36 [facility] Comment on above: Result Comment: Canc elled via OM: Order cancelled - Patient discharged Performed By: #### L 501.5200, L501.9520 #### [facility] [address] [place], [address] MCV Normal 80-94 [facility] Comment on above: Result Comment: Canc elled via OM: Order cancelled - Patient discharged Performed By: #### L 501.5200, L501.9520 #### [facility] [address] [place], [address] NEUT% Normal 47-70 [facility] Comment on above: Result Comment: Canc elled via OM: Order cancelled - Patient discharged Performed By: #### L 501.5200, L501.9520 #### [facility] [address] [place], [address] PLT Normal 150-450 [facility] Comment on above: Result Comment: Canc elled via OM: Order cancelled - Patient discharged Performed By: #### L 501.5200, L501.9520 #### [facility] [address] [place], [address] RBC Normal 4.6-6.2 [facility] Comment on above: Result Comment: Canc elled via OM: Order cancelled - Patient discharged Performed By: #### L 501.5200, L501.9520 #### [facility] [address] [place], [address] RDW CV Normal 11.6-14.6 [facility] Comment on above: Result Comment: Canc elled via OM: Order cancelled - Patient discharged Performed By: #### L 501.5200, L501.9520 #### [facility] [address] [place], [address] RDW SD Normal 35.1-43.9 [facility] Comment on above: Result Comment: Canc elled via OM: Order cancelled - Patient discharged Performed By: #### L 501.5200, L501.9520 #### [facility] [address] [place], [address] WBC Normal 4.4-11.0 [facility] Comment on above: Result Comment: Canc elled via OM: Order cancelled - Patient discharged Performed By: #### L 501.5200, L501.9520 #### [facility] [address] [place], [address] 12 Lead EKGon 06-04-2024 12 Lead EKG [facility] Cardiovascular Services [address] [place] [address] 12 Lead EKG 06/04/24 0123 MR#: [id number] Acct: [id number] Name: MAXWELL SANDHU Rep #: [id number] : 1970 54 From: Steven Saba MD Attending Dr: Dr. Kaiden Bullard MD Status: DIS IN Ordering Dr: Ferddie Orta MD Date: 06/04/24 Location: U Sex: M C Admitted: 06/03/24 Test Reason : NEW AFIB Blood Pressure : */* mmHG Vent. Rate : 120 BPM Atrial Rate : 264 BPM P-R Int : * ms QRS Dur : 108 ms QT Int : 360 ms P-R-T Axes : * -65 -26 degrees QTcB Int : 508 ms Atrial flutter with variable A-V block Left axis deviation Pulmonary disease pattern Incomplete right bundle branch block Minimal voltage criteria for LVH, may be normal variant ( Leroy product ) Abnormal ECG When compared with ECG of 03-Jun-2024 06:22, MANUAL COMPARISON REQUIRED DATA IS UNCONFIRMED Confirmed by ARACELI CAO, STEVEN ([id number]), purchasing expeditor WINDY THOMAS ([id number]) on 06/05/2024 1:23:38 PM Referred By: Confirmed By: STEVEN SABA MD 06/05/24 1323 Date Steven Saba MD CC: Dr. Kaiden Bullard MD; Dr. Curtis Hernandez MD; Dr. Freddie Orta MD Signed Normal [facility] Absolute lymphocyte countOrd ered By: Kaiden Bullard on 06-04-2024 Lymphocytes Auto (Unsp spec) [#/Vol] 2.81 10*3/uL 0.83-4.51 [facility] Absolute neutrophil countOrd ered By: Kaiden Bullard on 06-04-2024 Neutrophils (Bld) [#/Vol] 4.5 10*3/uL 2.0-7.7 [facility] Anion gap in Serum or Plasma Ordered By: Kaiden Bullard on 06-04-2024 Anion gap [Moles/Vol] 11 mmol/L 5-15 [facility] Automated lymphocyte count a s percentage of total leukocytesOrdered By: Kaiden Bullard on 06-04-2024 Lymphocytes/100 WBC Auto (Unsp spec) 34.2 % - [facility] BUN/creatinine ratioOrdered By: Kaiden Bullard on 06-04-2024 Urea nitrogen/Creatinine [Mass ratio] 26.0 mg/mg High 11-25 [facility] Basic Metabolic Profile (BMP )on 06-04-2024 BUN/CRE 26.0 RATIO High 11-25 [facility] Comment on above: Performed By: #### L 100.0500 #### [facility] [address] [place], [address] Calcium [Mass/Vol] 8.4 mg/dL Normal 7.6-11.0 [facility] Comment on above: Performed By: #### L 100.0500 #### [facility] [address] [place], [address] Chloride [Moles/Vol] 104 mmol/L Normal 98-108 [facility] Comment on above: Performed By: #### L 100.0500 #### [facility] [address] [place], [address] CO2 [Moles/Vol] 21.9 mmol/L Normal 21.0-32.0 [facility] Comment on above: Performed By: #### L 100.0500 #### [facility] [address] [place], [address] Creatinine [Mass/Vol] 0.59 mg/dL Low 0.70-1.20 [facility] Comment on above: Performed By: #### L 100.0500 #### [facility] [address] [place], [address] GAP 11 Normal 5-15 [facility] Comment on above: Performed By: #### L 100.0500 #### [facility] [address] [place], [address] GFR/1.73 sq M.predicted among non-blacks MDRD (S/P/Bld) [Vol rate/Area] 115 mL/min/{1.73_m2} Normal >60 [facility] Comment on above: Result Comment: mL/m in/1.73m2 CKD-EPI Creatinine Equation (2020) Performed By: #### L 100.0500 #### [facility] [address] [place], [address] Glucose [Mass/Vol] 187 mg/dL High 70-99 [facility] Comment on above: Performed By: #### L 100.0500 #### [facility] [address] [place], [address] Potassium [Moles/Vol] 4.3 mmol/L Normal 3.3-5.1 [facility] Comment on above: Result Comment: Hemo lysis present, Results??could be affected. ?? Performed By: #### L 100.0500 #### [facility] [address] [place], [address] Sodium [Moles/Vol] 137 mmol/L Normal 133-145 [facility] Comment on above: Performed By: #### L 100.0500 #### [facility] [address] [place], [address] Urea nitrogen [Mass/Vol] 15 mg/dL Normal 4-19 [facility] Comment on above: Performed By: #### L 100.0500 #### [facility] [address] [place], [address] Basophil percentageOrdered B y: Kaiden Bullard on 06-04-2024 Basophils/100 WBC (Bld) 0.9 % 0-1 [facility] Bedside Glucoseon 06-04-2024 FINGERSTICK GLU 127 mg/dL High 74-106 [facility] Comment on above: Result Comment: SYLVESTER GEMENT OF PATIENT CARE PER NURSING PROTOCOL Performed By: #### L 100.0500 #### [facility] [address] [place], [address] FINGERSTICK GLU 174 mg/dL High 74-106 [facility] Comment on above: Result Comment: SYLVESTER GEMENT OF PATIENT CARE PER NURSING PROTOCOL Performed By: #### L 501.080 #### [facility] [address] [place], [address] FINGERSTICK GLU 212 mg/dL High 74-106 [facility] Comment on above: Result Comment: SYLVESTER GEMENT OF PATIENT CARE PER NURSING PROTOCOL Performed By: #### L 400.0001 #### [facility] [address] [place], [address] CBC W/Diff, Automatedon 04-2 Absolute Lymph 2.81 X10 3/uL Normal 0.83-4.51 [facility] Comment on above: Performed By: #### L 100.0500 #### [facility] [address] [place], [address] Absolute Neut 4.5 X10 3/uL Normal 2.0-7.7 [facility] Comment on above: Performed By: #### L 100.0500 #### [facility] [address] [place], [address] Basophils/100 WBC (Bld) 0.9 % Normal 0-1 [facility] Comment on above: Performed By: #### L 100.0500 #### [facility] [address] [place], [address] Eosinophils/100 WBC (Bld) 2.4 % Normal 0-5 [facility] Comment on above: Performed By: #### L 100.0500 #### [facility] [address] [place], [address] Erythrocyte distribution width (RBC) [Ratio] 13.6 % Normal 11.6-14.6 [facility] Comment on above: Performed By: #### L 100.0500 #### [facility] [address] [place], [address] Hematocrit (Bld) [Volume fraction] 46.2 % Normal 40-54 [facility] Comment on above: Performed By: #### L 100.0500 #### [facility] [address] [place], [address] Hemoglobin (Bld) [Mass/Vol] 15.2 g/dL Normal 13.0-16.5 [facility] Comment on above: Performed By: #### L 100.0500 #### [facility] [address] [place], [address] IG% 0.400 Normal 0.0-0.9 [facility] Comment on above: Result Comment: IG% - Immature Granulocytes (promyelocytes, myelocytes and metamyelocytes) > 1% indicates that a LEFT SHIFT is Present. Performed By: #### L 100.0500 #### [facility] [address] [place], [address] Lymphocytes/100 WBC (Bld) 34.2 % Normal 19-41 [facility] Comment on above: Performed By: #### L 100.0500 #### [facility] [address] [place], [address] MCH (RBC) [Entitic mass] 26.8 pg Low 27.0-32.0 [facility] Comment on above: Performed By: #### L 100.0500 #### [facility] [address] [place], [address] MCHC (RBC) [Mass/Vol] 32.9 g/dL Normal 32-36 [facility] Comment on above: Performed By: #### L 100.0500 #### [facility] [address] [place], [address] MCV (RBC) [Entitic vol] 81.5 fL Normal 80-94 [facility] Comment on above: Performed By: #### L 100.0500 #### [facility] [address] [place], [address] Monocytes/100 WBC (Bld) 6.9 % Normal 0-10 [facility] Comment on above: Performed By: #### L 100.0500 #### [facility] [address] [place], [address] Neutrophils/100 WBC (Bld) 55.2 % Normal 47-70 [facility] Comment on above: Performed By: #### L 100.0500 #### [facility] [address] [place], [address] Nucleated RBC (Bld) [#/Vol] 0 10*3/uL Normal 0-5 [facility] Comment on above: Performed By: #### L 100.0500 #### [facility] [address] [place], [address] Platelet mean volume (Bld) [Entitic vol] 11.8 fL Normal 6.2-12.0 [facility] Comment on above: Performed By: #### L 100.0500 #### [facility] [address] [place], [address] Platelets (Bld) [#/Vol] 172 10*3/uL Normal 150-450 [facility] Comment on above: Performed By: #### L 100.0500 #### [facility] [address] [place], [address] RBC (Bld) [#/Vol] 5.67 10*6/uL Normal 4.6-6.2 [facility] Comment on above: Performed By: #### L 100.0500 #### [facility] [address] [place], [address] RDW SD 39.8 fl Normal 35.1-43.9 [facility] Comment on above: Performed By: #### L 100.0500 #### [facility] [address] [place], [address] WBC (Bld) [#/Vol] 8.2 10*3/uL Normal 4.4-11.0 [facility] Comment on above: Performed By: #### L 100.0500 #### [facility] [address] [place], [address] Carbon dioxide, total [Moles /volume] in Central venous bloodOrdered By: Kaiden Bullard on 06-04-2024 CO2 [Moles/Vol] 21.9 mmol/L 21.0-32.0 [facility] Chloride assayOrdered By: Brandon Bullard on 06-04-2024 Chloride [Moles/Vol] 104 mmol/L 98-108 [facility] Eosinophil percentageOrdered By: Kaiden Bullard on 06-04-2024 Eosinophils/100 WBC (Bld) 2.4 % 0-5 [facility] Erythrocyte distribution wid th ratioOrdered By: Kaiden Bullard on 06-04-2024 Erythrocyte distribution width (RBC) [Ratio] 13.6 % 11.6-14.6 [facility] Erythrocyte distribution wid th standard deviationOrdered By: Kaiden Bullard on 06-04-2024 Erythrocyte distribution width (RBC) [Ratio] 39.8 fl 35.1-43.9 [facility] Glomerular filtration rate ( GFR) estimation/1.73 sq m using serum, plasma, or whole bOrdered By: Kaiden Bullard on 06-04-2024 GFR/1.73 sq M.predicted among non-blacks MDRD (S/P/Bld) [Vol rate/Area] 115 mL/min/{1.73_m2} >60 [facility] Comment on above: mL/min/1.73m2 CKD-EP I Creatinine Equation (2020) [facility] deOrdered By: Kaiden Bullard on 06-04-2024 Glucose [Mass/Vol] 127 mg/dL High 74-106 [facility] Comment on above: MANAGEMENT OF PATIEN T CARE PER NURSING PROTOCOL Hematocrit Auto (Bld) [Volum e fraction]Ordered By: Kaiden Bullard on 06-04-2024 Hematocrit (Bld) [Volume fraction] 46.2 % 40-54 [facility] Hemoglobin measurementOrdere d By: Kaiden Bullard on 06-04-2024 Hemoglobin (Bld) [Mass/Vol] 15.2 g/dL 13.0-16.5 [facility] Immature granulocytes/100 WB C Auto (Bld)Ordered By: Kaiden Bullard on 06-04-2024 Immature granulocytes/100 WBC (Bld) 0.400 % 0.0-0.9 [facility] Comment on above: IG% - Immature Granu locytes (promyelocytes, myelocytes and metamyelocytes) > 1% indicates that a LEFT SHIFT is Present. MCV (mean corpuscular volume ) determinationOrdered By: Kaiden Bullard on 06-04-2024 MCV (RBC) [Entitic vol] 81.5 fL 80-94 [facility] Magnesiumon 06-04-2024 Magnesium [Mass/Vol] 2.1 mg/dL Normal 1.5-2.2 [facility] Comment on above: Performed By: #### L 100.0500 #### [facility] [address] [place], [place], [address] Magnesium measurement (mass/ volume)Ordered By: Kaiden Bullard on 06-04-2024 Magnesium (Unsp spec) [Mass/Vol] 2.1 mg/dL 1.5-2.2 [facility] Mean corpuscular hemoglobin (MCH) determinationOrdered By: Kaiden Bullard on 06-04-2024 MCH (RBC) [Entitic mass] 26.8 pg Low 27.0-32.0 [facility] Mean corpuscular hemoglobin concentration (MCHC) determinationOrdered By: Kaiden Bullard on 06-04-2024 MCHC (RBC) [Mass/Vol] 32.9 g/dL 32-36 [facility] Mean platelet volume determi nationOrdered By: Kaiedn Bullard on 06-04-2024 Platelet mean volume (Bld) [Entitic vol] 11.8 fL 6.2-12.0 [facility] Monocyte percentageOrdered B y: Kaiden Bullard on 06-04-2024 Monocytes/100 WBC (Bld) 6.9 % 0-10 [facility] Neutrophil percentageOrdered By: Kaiden Bullard on 06-04-2024 Neutrophils/100 WBC (Bld) 55.2 % 47-70 [facility] Nucleated red blood cell per centageOrdered By: Kaiden Bullard on 06-04-2024 Nucleated RBC/100 WBC (Bld) [Ratio] 0 % 0-5 [facility] Phosphoruson 06-04-2024 Phosphate [Mass/Vol] 3.3 mg/dL Normal 2.7-4.5 [facility] Comment on above: Performed By: #### L 100.0500 #### [facility] [address] [place], [address] Platelet countOrdered By: Brandon Bullard on 06-04-2024 Platelets (Bld) [#/Vol] 172 10*3/uL 150-450 [facility] Potassium measurement (mass/ volume)Ordered By: Kaiden Bullard on 06-04-2024 Potassium (Unsp spec) [Mass/Vol] 4.3 mmol/L 3.3-5.1 [facility] Comment on above: Hemolysis present, R esults could be affected. RBC Auto (Bld) [#/Vol]Ordere d By: Kaiden Bullard on 06-04-2024 RBC (Bld) [#/Vol] 5.67 10*6/uL 4.6-6.2 [facility] Serum creatinine measurement (mass/volume)Ordered By: Kaiden Bullard on 06-04-2024 Creatinine [Mass/Vol] 0.59 mg/dL Low 0.70-1.20 [facility] Serum glucose measurement (m ass/volume)Ordered By: Kaiden Bullard on 06-04-2024 Glucose [Mass/Vol] 187 mg/dL High 70-99 [facility] Serum or plasma calcium gloria urement (mass/volume)Ordered By: Kaiden Bullard on 06-04-2024 Calcium [Mass/Vol] 8.4 mg/dL 7.6-11.0 [facility] Serum or plasma urea nitroge n measurement (mass/volume)Ordered By: Kaiden Bullard on 06-04-2024 Urea nitrogen [Mass/Vol] 15 mg/dL 4-19 [facility] Sodium levelOrdered By: Kaz Bullard on 06-04-2024 Sodium [Moles/Vol] 137 mmol/L 133-145 [facility] White blood cell (WBC) count Ordered By: Kaiden Bullard on 06-04-2024 WBC (Bld) [#/Vol] 8.2 10*3/uL 4.4-11.0 [facility] 12 Lead EKGon 06-03-2024 12 Lead EKG [facility] Cardiovascular Services [address] [place] [address] 12 Lead EKG 06/03/24 0622 MR#: [id number] Acct: [id number] Name: MAXWELL SANDHU Rep #: [id number] : 1970 54 From: Steven Saba MD Attending Dr: Dr. Kaiden Bullard MD Status: DIS IN Ordering Dr: Kaiden Zafar DO Date: 06/03/24 [facility] [facility] Sex[facility] M C Admitted: 06/03/24 Test Reason : CHANGE Blood Pressure : */* mmHG Vent. Rate : 117 BPM Atrial Rate : 271 BPM P-R Int : * ms QRS Dur : 112 ms QT Int : 376 ms P-R-T Axes : * -73 -45 degrees QTcB Int : 524 ms Atrial flutter with variable A-V block Left axis deviation Pulmonary disease pattern Minimal voltage criteria for LVH, may be normal variant ( Leroy product ) Nonspecific ST abnormality Prolonged QT Abnormal ECG When compared with ECG of 02-Jun-2024 23:21, MANUAL COMPARISON REQUIRED DATA IS UNCONFIRMED Confirmed by ARACELI CAO, STEVEN ([id number]), purchasing expeditor JUVENTINO COOPER ([id number]) on 06/06/2024 1:36:02 PM Referred By: ZAFAR Confirmed By: STEVEN SABA MD 06/06/24 1336 Date Steven Saba MD CC: Dr. Kaiden Bullard MD; Dr. Kaiden Zafar DO; Dr. Curtis Hernandez MD Signed Normal [facility] Activated partial thrombopla stin time (aPTT) in platelet poor plasma by coagulation aOrdered By: Kaiden Cervantes on 06-03-2024 aPTT Coag (PPP) [Time] 30.4 s 24.1-36.2 [facility] Bedside Glucoseon 06-03-2024 FINGERSTICK GLU 145 mg/dL High 74-106 [facility] Comment on above: Result Comment: SYLVESTER GEMENT OF PATIENT CARE PER NURSING PROTOCOL Performed By: #### L 501.080 #### [facility] [place], [address] FINGERSTICK GLU 228 mg/dL High 74-106 [facility] Comment on above: Result Comment: SYLVESTER GEMENT OF PATIENT CARE PER NURSING PROTOCOL Performed By: #### L 501.080 #### [facility] [address] [place], [address] FINGERSTICK GLU 239 mg/dL High 74-106 [facility] Comment on above: Result Comment: SYLVESTER GEMENT OF PATIENT CARE PER NURSING PROTOCOL Performed By: #### L 501.080 #### [facility] [address] [place], [address] FINGERSTICK GLU 262 mg/dL High 74-106 [facility] Comment on above: Result Comment: SYLVESTER GEMENT OF PATIENT CARE PER NURSING PROTOCOL Performed By: #### L 501.080 #### [facility] [address] [place], [address] Bilirubin, totalOrdered By: Kaiden Cervantes on 06-03-2024 Bilirubin [Mass/Vol] 0.57 mg/dL 0.00-1.30 [facility] CBC W/Diff, Automatedon 05-08 Absolute Lymph 2.49 X10 3/uL Normal 0.83-4.51 [facility] Comment on above: Performed By: #### L 501.080 #### [facility] [address] [place], [address] Absolute Neut 6.3 X10 3/uL Normal 2.0-7.7 [facility] Comment on above: Performed By: #### L 501.080 #### [facility] [address] [place], [address] Basophils/100 WBC (Bld) 0.6 % Normal 0-1 [facility] Comment on above: Performed By: #### L 501.080 #### [facility] [address] [place], [address] Eosinophils/100 WBC (Bld) 1.0 % Normal 0-5 [facility] Comment on above: Performed By: #### L 501.080 #### [facility] [address] [place], [address] Erythrocyte distribution width (RBC) [Ratio] 13.4 % Normal 11.6-14.6 [facility] Comment on above: Performed By: #### L 501.080 #### [facility] [address] [place], [address] Hematocrit (Bld) [Volume fraction] 48.3 % Normal 40-54 [facility] Comment on above: Performed By: #### L 501.080 #### [facility] [address] [place], [address] Hemoglobin (Bld) [Mass/Vol] 15.9 g/dL Normal 13.0-16.5 [facility] Comment on above: Performed By: #### L 501.080 #### [facility] [address] [place], [address] IG% 0.700 Normal 0.0-0.9 [facility] Comment on above: Result Comment: IG% - Immature Granulocytes (promyelocytes, myelocytes and metamyelocytes) > 1% indicates that a LEFT SHIFT is Present. Performed By: #### L 501.080 #### [facility] [address] [place], [address] Lymphocytes/100 WBC (Bld) 25.7 % Normal 19-41 [facility] Comment on above: Performed By: #### L 501.080 #### [facility] [address] [place], [address] MCH (RBC) [Entitic mass] 26.5 pg Low 27.0-32.0 [facility] Comment on above: Performed By: #### L 501.080 #### [facility] [address] [place], [address] MCHC (RBC) [Mass/Vol] 32.9 g/dL Normal 32-36 [facility] Comment on above: Performed By: #### L 501.080 #### [facility] [address] [place], [address] MCV (RBC) [Entitic vol] 80.6 fL Normal 80-94 [facility] Comment on above: Performed By: #### L 501.080 #### [facility] [address] [place], [address] Monocytes/100 WBC (Bld) 7.0 % Normal 0-10 [facility] Comment on above: Performed By: #### L 501.080 #### [facility] [address] [place], [address] Neutrophils/100 WBC (Bld) 65.0 % Normal 47-70 [facility] Comment on above: Performed By: #### L 501.080 #### [facility] [address] [place], [address] Nucleated RBC (Bld) [#/Vol] 0 10*3/uL Normal 0-5 [facility] Comment on above: Performed By: #### L 501.080 #### [facility] [address] [place], [address] Platelet mean volume (Bld) [Entitic vol] 10.9 fL Normal 6.2-12.0 [facility] Comment on above: Performed By: #### L 501.080 #### [facility] [address] [place], [address] Platelets (Bld) [#/Vol] 194 10*3/uL Normal 150-450 [facility] Comment on above: Performed By: #### L 501.080 #### [facility] [address] [place], [address] RBC (Bld) [#/Vol] 5.99 10*6/uL Normal 4.6-6.2 [facility] Comment on above: Performed By: #### L 501.080 #### [facility] [address] [place], [address] RDW SD 38.5 fl Normal 35.1-43.9 [facility] Comment on above: Performed By: #### L 501.080 #### [facility] [address] [place], [address] WBC (Bld) [#/Vol] 9.7 10*3/uL Normal 4.4-11.0 [facility] Comment on above: Performed By: #### L 501.080 #### [facility] [address] [place], [address] Absolute Lymph 2.46 X10 3/uL Normal 0.83-4.51 [facility] Comment on above: Performed By: #### L 100.0500 #### [facility] [address] [place], [address] Absolute Neut 6.5 X10 3/uL Normal 2.0-7.7 [facility] Comment on above: Performed By: #### L 100.0500 #### [facility] [address] [place], [address] Basophils/100 WBC (Bld) 0.7 % Normal 0-1 [facility] Comment on above: Performed By: #### L 100.0500 #### [facility] [address] [place], [address] Eosinophils/100 WBC (Bld) 0.7 % Normal 0-5 [facility] Comment on above: Performed By: #### L 100.0500 #### [facility] [address] [place], [address] Erythrocyte distribution width (RBC) [Ratio] 13.6 % Normal 11.6-14.6 [facility] Comment on above: Performed By: #### L 100.0500 #### [facility] [address] [place], [address] Hematocrit (Bld) [Volume fraction] 51.2 % Normal 40-54 [facility] Comment on above: Performed By: #### L 100.0500 #### [facility] [address] [place], [address] Hemoglobin (Bld) [Mass/Vol] 16.6 g/dL High 13.0-16.5 [facility] Comment on above: Performed By: #### L 100.0500 #### [facility] [address] [place], [address] IG% 1.300 High 0.0-0.9 [facility] Comment on above: Result Comment: IG% - Immature Granulocytes (promyelocytes, myelocytes and metamyelocytes) > 1% indicates that a LEFT SHIFT is Present. Performed By: #### L 100.0500 #### [facility] [address] [place], [address] Lymphocytes/100 WBC (Bld) 24.7 % Normal 19-41 [facility] Comment on above: Performed By: #### L 100.0500 #### [facility] [address] [place], [address] MCH (RBC) [Entitic mass] 26.3 pg Low 27.0-32.0 [facility] Comment on above: Performed By: #### L 100.0500 #### [facility] [address] [place], [address] MCHC (RBC) [Mass/Vol] 32.4 g/dL Normal 32-36 [facility] Comment on above: Performed By: #### L 100.0500 #### [facility] [address] [place], [address] MCV (RBC) [Entitic vol] 81.3 fL Normal 80-94 [facility] Comment on above: Performed By: #### L 100.0500 #### [facility] [address] [place], [address] Monocytes/100 WBC (Bld) 7.5 % Normal 0-10 [facility] Comment on above: Performed By: #### L 100.0500 #### [facility] [address] [place], [address] Neutrophils/100 WBC (Bld) 65.1 % Normal 47-70 [facility] Comment on above: Performed By: #### L 100.0500 #### [facility] [address] [place], [address] Nucleated RBC (Bld) [#/Vol] 0 10*3/uL Normal 0-5 [facility] Comment on above: Performed By: #### L 100.0500 #### [facility] [address] [place], [address] Platelet mean volume (Bld) [Entitic vol] 11.9 fL Normal 6.2-12.0 [facility] Comment on above: Performed By: #### L 100.0500 #### [facility] [address] [place], [address] Platelets (Bld) [#/Vol] 212 10*3/uL Normal 150-450 [facility] Comment on above: Performed By: #### L 100.0500 #### [facility] [address] [place], [address] RBC (Bld) [#/Vol] 6.30 10*6/uL High 4.6-6.2 [facility] Comment on above: Performed By: #### L 100.0500 #### [facility] [address] [place], [address] RDW SD 39.6 fl Normal 35.1-43.9 [facility] Comment on above: Performed By: #### L 100.0500 #### [facility] [address] [place], [address] WBC (Bld) [#/Vol] 10.0 10*3/uL Normal 4.4-11.0 [facility] Comment on above: Performed By: #### L 100.0500 #### [facility] [address] [place], [address] CTA Chest W/WO Contraston CTA Chest W/WO Contrast [facility] Imaging Services [address] [place] [address] CTA Chest W/WO Contrast MR#: [id number] Acct: [id number] Name: MAXWELL SANDHU Rep #: [id number] : 1970 M 54 From: Aurelio Salcido MD PCP: Dr. Curtis Hernandez MD Status: [facility] Study: CTA Chest W/WO Contrast Date of Exam: 06/03/24 Exam# [id number] Ordering Dr: John Schneider MD PROCEDURE: CTA CHEST W/WO CONTRAST 06/03/2024 REASON FOR EXAM: TACHYCARDIA TECHNIQUE: CTA imaging of the chest with intravenous contrast. Multiplanar and multisequence images were obtained. Maximum intensity projection (MIPs) Volume rendering and CONTRAST: 100 cc Isovue 370 IV One or more dose reduction techniques were used (e.g., Automated exposure control, adjustment of the mA and/or kV according to patient size, use of iterative reconstruction technique). RADIATION DOSE SUMMARY: CTDlvol: 42.74 mGy DLP: 607.93 mGycm COMPARISON: None available FINDINGS: Nonocclusive filling defect is seen at the right upper lobe segmental branching of the interlobar artery for example axial 190 and coronal 161 consistent with nonocclusive pulmonary embolism. Bandlike opacity at the left lower lobe with lack of contrast definitely seen in the subsegmental pulmonary artery branches for example axial 112 concerning for possible occlusive subsegmental branch pulmonary embolism and possible associated developing pulmonary infarct. No large central saddle pulmonary embolism. No CT evidence to suggest possible right heart strain. Patchy ground-glass opacity at the lingula, nonspecific. The central airways appear patent. Small bandlike subpleural opacity posterior right upper lobe for example axial 190. Thoracic aorta and standard appearing 3 branch arch appears within limits. Note of mild appearing coronary calcification. No pericardial or pleural effusion. No adenopathy identified. Sequela of previous granulomatous disease. Limited images of the upper abdomen with suggestion of possible punctate calcified gallstones for example axial 24. Status post lower cervical anterior fusion, partially imaged. CT/CTA Chest W/WO Contrast IMPRESSION: Findings are concerning for areas of pulmonary embolism at the right upper and left lower lobes as described above. Possible associated developing infarct at the left lower lobe as above. Findings discussed by myself by phone with Dr. Schneider at 1:07 a.m. 06/03/2024 Reading Location: [facility] CC: Dr. John Schneider MD; Dr. Curtis Hernandez MD [employer] Worker: Signed Normal [facility] Calculated very low density lipoprotein (VLDL) cholesterol measurementOrdered By: Kaiden Cervantes on 06-03-2024 Calculated very low density lipoprotein (VLDL) cholesterol measurement 33 mg/dL 5-40 [facility] Comprehensive Metabolic Prof ilon 06-03-2024 Albumin [Mass/Vol] 3.4 g/dL Low 3.5-5.0 [facility] Comment on above: Performed By: #### L 501.080 #### [facility] [address] [place], [address] Albumin/Globulin [Mass ratio] 1.0 {ratio} Normal 0.9-2.4 [facility] Comment on above: Performed By: #### L 501.080 #### [facility] [address] [place], [address] ALK PHOS 75 U/L Normal 40-129 [facility] Comment on above: Performed By: #### L 501.080 #### [facility] [address] [place], [address] ALT [Catalytic activity/Vol] 21 U/L Normal <=46 [facility] Comment on above: Performed By: #### L 501.080 #### [facility] [address] [place], [address] AST [Catalytic activity/Vol] 19 U/L Normal <=37 [facility] Comment on above: Performed By: #### L 501.080 #### [facility] [address] [place], [address] Bilirubin [Mass/Vol] 0.57 mg/dL Normal 0.00-1.30 [facility] Comment on above: Performed By: #### L 501.080 #### [facility] [address] [place], [address] BUN/CRE 27.7 RATIO High 10-20 [facility] Comment on above: Performed By: #### L 501.080 #### [facility] [address] [place], [address] Calcium [Mass/Vol] 8.8 mg/dL Normal 7.6-11.0 [facility] Comment on above: Performed By: #### L 501.080 #### [facility] [address] [place], [address] Chloride [Moles/Vol] 100 mmol/L Normal 98-108 [facility] Comment on above: Performed By: #### L 501.080 #### [facility] [address] [place], [address] CO2 [Moles/Vol] 24.3 mmol/L Normal 21.0-32.0 [facility] Comment on above: Performed By: #### L 501.080 #### [facility] [address] [place], [address] Creatinine [Mass/Vol] 0.75 mg/dL Normal 0.70-1.20 [facility] Comment on above: Performed By: #### L 501.080 #### [facility] [address] [place], [address] ECRCL 169.48 ml/min Normal 50-250 [facility] Comment on above: Performed By: #### L 501.080 #### [facility] [address] [place], [address] GAP 13 Normal 5-15 [facility] Comment on above: Performed By: #### L 501.080 #### [facility] [address] [place], [address] GFR/1.73 sq M.predicted among non-blacks MDRD (S/P/Bld) [Vol rate/Area] 107 mL/min/{1.73_m2} Normal >60 [facility] Comment on above: Result Comment: mL/m in/1.73m2 CKD-EPI Creatinine Equation (2020) Performed By: #### L 501.080 #### [facility] [address] [place], [address] Globulin (S) [Mass/Vol] 3.5 g/dL Normal 2.2-4.2 [facility] Comment on above: Performed By: #### L 501.080 #### [facility] [address] [place], [address] Glucose [Mass/Vol] 282 mg/dL High 70-99 [facility] Comment on above: Performed By: #### L 501.080 #### [facility] [address] [place], [address] Potassium [Moles/Vol] 4.3 mmol/L Normal 3.3-5.1 [facility] Comment on above: Performed By: #### L 501.080 #### [facility] [address] [place], [address] Sodium [Moles/Vol] 137 mmol/L Normal 133-145 [facility] Comment on above: Performed By: #### L 501.080 #### [facility] [address] [place], [address] T PROT 6.9 g/dL Normal 5.9-8.4 [facility] Comment on above: Performed By: #### L 501.080 #### [facility] [address] [place], [address] Urea nitrogen [Mass/Vol] 21 mg/dL High 4-19 [facility] Comment on above: Performed By: #### L 501.080 #### [facility] [address] [place], [address] Albumin [Mass/Vol] 3.4 g/dL Low 3.5-5.0 [facility] Comment on above: Performed By: #### L 100.0500 #### [facility] [address] [place], [address] Albumin/Globulin [Mass ratio] 1.0 {ratio} Normal 0.9-2.4 [facility] Comment on above: Performed By: #### L 100.0500 #### [facility] [address] [place], [address] ALK PHOS 78 U/L Normal 40-129 [facility] Comment on above: Performed By: #### L 100.0500 #### [facility] [address] [place], [address] ALT [Catalytic activity/Vol] 21 U/L Normal <=46 [facility] Comment on above: Performed By: #### L 100.0500 #### [facility] [address] [place], [address] AST [Catalytic activity/Vol] 22 U/L Normal <=37 [facility] Comment on above: Performed By: #### L 100.0500 #### [facility] [address] [place], [address] Bilirubin [Mass/Vol] 0.59 mg/dL Normal 0.00-1.30 [facility] Comment on above: Performed By: #### L 100.0500 #### [facility] [address] [place], [address] BUN/CRE 26.7 RATIO High 10-20 [facility] Comment on above: Performed By: #### L 100.0500 #### [facility] [address] [place], [address] Calcium [Mass/Vol] 8.9 mg/dL Normal 7.6-11.0 [facility] Comment on above: Performed By: #### L 100.0500 #### [facility] [address] [place], [address] Chloride [Moles/Vol] 97 mmol/L Low 98-108 [facility] Comment on above: Performed By: #### L 100.0500 #### [facility] [address] [place], [address] CO2 [Moles/Vol] 24.1 mmol/L Normal 21.0-32.0 [facility] Comment on above: Performed By: #### L 100.0500 #### [facility] [address] [place], [address] Creatinine [Mass/Vol] 0.82 mg/dL Normal 0.70-1.20 [facility] Comment on above: Performed By: #### L 100.0500 #### [facility] [address] [place], [address] GAP 12 Normal 5-15 [facility] Comment on above: Performed By: #### L 100.0500 #### [facility] [address] [place], [address] GFR/1.73 sq M.predicted among non-blacks MDRD (S/P/Bld) [Vol rate/Area] 105 mL/min/{1.73_m2} Normal >60 [facility] Comment on above: Result Comment: mL/m in/1.73m2 CKD-EPI Creatinine Equation (2020) Performed By: #### L 100.0500 #### [facility] [address] [place], [address] Globulin (S) [Mass/Vol] 3.6 g/dL Normal 2.2-4.2 [facility] Comment on above: Performed By: #### L 100.0500 #### [facility] [address] [place], [address] Glucose [Mass/Vol] 318 mg/dL High 70-99 [facility] Comment on above: Performed By: #### L 100.0500 #### [facility] [address] [place], [address] Potassium [Moles/Vol] 4.5 mmol/L Normal 3.3-5.1 [facility] Comment on above: Performed By: #### L 100.0500 #### [facility] [address] [place], [address] Sodium [Moles/Vol] 133 mmol/L Normal 133-145 [facility] Comment on above: Performed By: #### L 100.0500 #### [facility] [address] [place], [address] T PROT 7.0 g/dL Normal 5.9-8.4 [facility] Comment on above: Performed By: #### L 100.0500 #### [facility] [address] [place], [address] Urea nitrogen [Mass/Vol] 22 mg/dL High 4-19 [facility] Comment on above: Performed By: #### L 100.0500 #### [facility] [address] [place], [address] Echo Complete W/ Contraston 06-03-2024 Echo Complete W/ Contrast [facility] [address] [place] [address] Echo Complete W/ Contrast 06/03/24 0934 MR#: [id number] Acct: [id number] Name: MAXWELL SANDHU Rep #: [id number] : 1970 54 From: Anna Collins MD Attending Dr: Dr. Kaiden Bullard MD Status: ADM IN Ordering Dr: Kaiden Zafar DO Date: 06/03/24 Location: U Sex: M C Admitted: 06/03/24 Reason For Study Reason For Study: Arrhythmia Procedure This was a 2D Doppler, Color Flow transthoracic echocardiogram. The study was technically difficult. Contrast injection was performed. Exam performed portable in patient room. Left Ventricle Moderate concentric left ventricular hypertrophy. Normal LV size. The left ventricular ejection fraction is 50 %. Stage 1 diastolic dysfunction. Right Ventricle Normal right ventricle. Atria There is mild biatrial dilatation. Mitral Valve Trivial mitral valve insufficiency. Tricuspid Valve Trivial tricuspid valve insufficiency. Unable to estimate RV systolic pressure due to insufficient tricuspid regurgitant envelope. Aortic Valve Trisinus/trileaflet aortic valve. Pulmonic Valve The pulmonic valve is not well visualized. Great Vessels Normal sized aortic root. Pericardium/Pleural No pericardial effusion. Medication Diluted definity 3.5ml given slow IV push to enhance endocardial definition. MMode/2D Measurements Calculations LVIDd: 5.5 cm IVSd: 1.5 cm Ao root diam: 3.4 cm LVIDs: 4.1 cm LVPWd: 1.5 cm RVDd: 4.4 cm FS: 25.1 % LAV(MOD-bp): 57.9 ml LVAd ap4: 40.9 cm2 SV(MOD-sp4): 85.4 ml LAV(MOD-bp) Indexed: 22.1 ml/m2 LVLd ap4: 8.4 cm SI(MOD-sp4): 32.6 ml/m2 LAV(MOD-sp2): 51.5 ml EDV(MOD-sp4): 162.9 ml LAV(MOD-sp4): 57.5 ml EDV(sp4-el): 168.3 ml LVAs ap4: 25.6 cm2 LVLs ap4: 7.0 cm ESV(MOD-sp4): 77.6 ml ESV(sp4-el): 79.5 ml EF(MOD-sp4): 52.4 % EF(sp4-el): 52.8 % SV(sp4-el): 88.8 ml LA A4 area: 21.5 cm2 LA dimension(2D): 3.8 cm RA A4 area: 19.4 cm2 Doppler Measurements Calculations MV E max vesta: 95.3 cm/sec MV V2 max: 113.2 cm/sec Ao V2 max: 110.2 cm/sec MV max P.2 mmHg Ao max P.9 mmHg MV V2 mean: 53.1 cm/sec Ao V2 mean: 82.8 cm/sec MV mean P.4 mmHg Ao mean P.1 mmHg MV V2 VTI: 24.6 cm Ao V2 VTI: 21.6 cm AV (velocity ratio): 0.77 LV V1 max: 90.5 cm/sec LV V1 max P.4 mmHg LV V1 mean P.0 mmHg LV V1 mean: 65.5 cm/sec LV V1 VTI: 16.8 cm ECHO/Echo Complete W/ Contrast Interpretation Summary Moderate concentric left ventricular hypertrophy. The left ventricular ejection fraction is 50 %. Stage 1 diastolic dysfunction. There is mild biatrial dilatation. The study was technically difficult. Ordering Physician: Kaiden Zafar Performed By: Derek Almendarez RCS 06/03/24 1237 Date Anna Collins MD CC: Dr. Kaiden Bullard MD; Dr. Kaiden Zafar DO; Dr. Curtis Hernandez MD Date Dictated: 06/03/2434 Date Transcribed: 06/03/24 1237 [employer] Worker: Signed Normal [facility] H AND P Exam - [facility]iston 06-03-2024 H&P Exam - Hospitalist [facility] Medical Records Department [address] [place] [address] H P Exam - Hospitalist 06/03/24 0134 MR#: [id number] Acct: [id number] Name: MAXWELL SANDHU Rep #: [id number] : 1970 54 From: Kaiden Zafar DO PCP: Dr. Curtis Hernandez MD Status:ADM IN Location: [place] [address] HPI - General General Date of Admission: 06/03/24 Date of Service: 06/03/24 Chief Complaint: Persistent Tachycardia. HPI Narrative MAXWELL SANDHU, is a 54 M with a past medical history of essential hypertension; on losartan and nifedipine, hyperlipidemia; on atorvastatin, super-morbid obesity; with BMI of 53 this admission, BROOKE; noncompliant with CPAP for the past 2 years, DM-2; of unknown control; on insulin glargine and insulin lispro TID, history of CVA; on BASA daily, history of seizures; on levetiracetam, OA, unintentional 50 pound weight gain over the past 6 months and recent diagnosis of ear infection at Urgent Care; treated with oral amoxicillin and prednisone who presents to [facility] ER complaining of persistent tachycardia. Mr. Sandhu reports his symptoms began 4-5 days ago when he began having ear pain for which he went to Urgent Care. Then about 3-4 days ago he took his blood pressure and noted his heart rate was in the 130 bpm range which has only episodically decreased to 108 bpm but is was basically remaining high in the 130 bpm range so he decided to come in for further evaluation and treatment. He denies associated palpitations, chest pain or SOB. He states his mobility is relatively poor as he mainly goes from the bed to wheelchair and does not exercise or have regular activity. He denies personal or family history of VTE. He also denies related fever, chills, nausea, vomiting, diarrhea, constipation, abdominal pain, headache or rash. In the ER he was noted to have a CTA of the chest with IV contrast that revealed findings concerning for areas of Pulmonary Embolism at the RUL and KARINA with possible associated developing infarct at the LLL along with Erythrocytosis indicated by elevated hemoglobin of 16.6 g/dL present on admission complicated by persistent Tachycardia in the 130 bpm range and mildly elevated troponin T of 56 ng/L present on admission suspected to be due to Acute Cardiac Strain compounded by additional laboratory evidence of Hyperglycemia of 318 mg/dL present on admission likely due to recent steroid administration in the setting of known chronic DM- 2 along with elevated BUN/creatinine ratio of 26.7 present on admission suggesting Dehydration and he was then admitted to the PCU for ongoing care for stay that is expected to extend beyond 2 midnights. [facility] Medical History Sleep apnea Seizures Stroke/cerebrovascular accident Hypertension High cholesterol Diabetes Home Medications ???Medication ???Instructions ???Recorded ???Last Taken ???Type insulin glargine 100 unit/mL (3 100 unit subcut DAILY diabetes 05/20/24 History mL) subcutaneous pen (Lantus Solostar U-100 Insulin) levetiracetam 500 mg tablet 500 mg PO BID keppra 11/01/23/2 03/02 History losartan 50 mg tablet 50 mg PO DAILY BP 11/01/23 5 History amoxicillin 875 mg tablet 875 mg PO BID ear infection 06/01/24 History aspirin 81 mg chewable tablet 1 tab PO DAILY heart health Unknown History atorvastatin 40 mg tablet 40 mg PO QHS choleterol 06/03/24 0 05/27/24 History insulin lispro 100 unit/mL See Rx Instructions subcut TID 05/20/24 History subcutaneous pen diabetes nifedipine 30 mg tablet,extended 30 mg PO DAILY BP 06/03/24 5 History release Allergy/AdvReac Type Severity Reaction Status Date / Time No Known Allergies Allergy Verified 06/02/24 23:07 Surgical History Hx of neck surgery Social History household members: spouse and family housing: house Smoking Status: Never smoker ROS ROS Narrative Review of Systems: Constitutional: Patient denies fever or chills. Eyes: Patient denies change in vision or discharge from eyes. ENT: Patient admits to ear pain with recent trip to urgent care on prednisone and amoxicillin as per HPI. He denies associated sore throat, runny nose or neck pain. Resp: Patient denies shortness of breath or cough. CV: Patient denies chest pain, palpitations, heart racing or lower extremity edema. GI: Patient denies abdominal pain, nausea, vomiting, diarrhea or constipation. : Patient denies dysuria, hematuria or urinary frequency. MSK: Patient denies arthralgias or myalgias. Skin: Patient denies rash, abscess, wounds or jaundice. Psych: Patient denies symptoms of uncontroll (more content not included)... Normal [facility] Hemoglobin A1con 06-03-2024 HbA1c (Bld) [Mass fraction] 12.2 % High <=5.6 [facility] Comment on above: Result Comment: Norm al < 5.7 % Prediabetic 5.7 - 6.4 % Diabetic >or= 6.5 % Please note range changes. Performed By: #### L 501.080 #### [facility] [address] [place], [address] Hemoglobin A1c percentageOrd ered By: Kaiden Cervantes on 06-03-2024 HbA1c (Bld) [Mass fraction] 12.2 % High <5.7 [facility] Comment on above: Normal < 5.7 % Predi abetic 5.7 - 6.4 % Diabetic >or= 6.5 % Please note range changes. International normalized rat io (INR) calculationOrdered By: John Schneider on 06-03-2024 INR Coag (Bld) [Relative time] 1.0 {INR} [facility] L499.0042on 06-03-2024 Trop T High Sen 55 ng/L Invalid Interpretation Code <=22 [facility] Comment on above: Result Comment: Crit ical Result(s) Called at: 0213 by:??MORRO HAVEN TO JOHN MARTIN Results read back by same. Performed By: #### L 501.080 #### [facility] [address] [place], [address] L499.0043on 06-03-2024 Trop T High Sen 58 ng/L Invalid Interpretation Code <=22 [facility] Comment on above: Result Comment: Crit ical Result(s) Called at: 0532 by:??MORRO HAVEN TO FAUSTO SNOW Results read back by same. Performed By: #### L 501.080 #### [facility] [address] [place], [address] L501.4021on 06-03-2024 Trop T High Sen 56 ng/L Invalid Interpretation Code <=22 [facility] Comment on above: Result Comment: Crit ical Result(s) Called at: 0022 by:??HALIMA LINN Results read back by same. Performed By: #### L 100.0500 #### [facility] [address] [place], [address] LDL calc ser/plasOrdered By: Kaiden Cervantes on 06-03-2024 Cholesterol in LDL [Mass/Vol] 104 mg/dL [facility] Comment on above: Gxyogbadcw=631-589 m g/dL & Higher Buya=105 mg/dL or greater Laboratory - Chemistry and C hemistry - challengeOrdered By: Kaiden Cervantes on 06-03-2024 AST [Catalytic activity/Vol] 19 U/L <38 [facility] Lipid Profileon 06-03-2024 CHOL:HDL 4.72 Normal [facility] Comment on above: Performed By: #### L 501.080 #### [facility] [address] [place], [address] Cholesterol [Mass/Vol] 174 mg/dL Normal <=200 [facility] Comment on above: Result Comment: Chol esterol level, Desirable <200 mg/dL Borderline high cholesterol 200-239 mg/dL High cholesterol >=240 mg/dL Recommendations of the NCEP Adult Treatment Panel for the following risk-cutoff thresholds for the [place] population. Performed By: #### L 501.080 #### [facility] [address] [place], [address] Cholesterol in HDL [Mass/Vol] 37 mg/dL Low [facility] Comment on above: Result Comment: Niurka onal Cholesterol Education Program (NCEP) guidelines: <40 mg/dL: Low HDL-cholesterol (major risk factor for CHD) >= 60 mg/dL: High HDL-cholesterol (negative risk factor for CHD) HDL-cholesterol is affected by a number of factors, e.g. smoking, exercise, hormones, sex and age. Performed By: #### L 501.080 #### [facility] [address] [place], [address] Cholesterol in LDL [Mass/Vol] 104 mg/dL Normal [facility] Comment on above: Result Comment: Bord ehfqyg=294-163 mg/dL Higher Trwq=344 mg/dL or greater Performed By: #### L 501.080 #### [facility] [address] [place], [address] Cholesterol in VLDL [Mass/Vol] 33 mg/dL Normal 5-40 [facility] Comment on above: Performed By: #### L 501.080 #### [facility] [address] [place], [address] Triglyceride [Mass/Vol] 167 mg/dL Normal [facility] Comment on above: Result Comment: The drugs N-Acetylcysteine and Metamizole may falsely depress this assay. Normal range: <150 mg/dL Borderline High: 150-199 mg/dL High: 200-499 mg/dL Very High: >500 mg/dL Performed By: #### L 501.080 #### [facility] [address] [place], [address] Magnesiumon 06-03-2024 Magnesium [Mass/Vol] 2.0 mg/dL Normal 1.5-2.2 [facility] Comment on above: Order Comment: *ADD ON- NOT STORED* Performed By: #### L 501.5200, L501.9520 #### [facility] [address] [place], [address] No Panel InformationOrdered By: Kaiden Cervantes on 06-03-2024 JAK2 Mutation Comment . [facility] Comment on above: Technical Component performed at [facility] RTPProfessional Component performed by:Stephen Castro, PhD, FACMGDirector, Molecular OncologyLabco [id number], [address] [facility]Miss[facility] [phone] test was developed and its performance characteristicsdetermined by [employer]. It has not been cleared orapproved by the Food and Drug Administration.Performed at: [facility] [id number] [facility], [place], [place] [id number] Director: Bruna Junior [facility], Phone: [phone] at: [facility] Labco [id number], [facility], [place] [id number] Director: Bruna Junior [facility], Phone: [phone] JAK2 V617F Reviewed By Comment . [facility] Comment on above: JAK2 is a cytoplasmi c tyrosine kinase with a berg role insignal transduction from multiple hematopoietic growthfactor receptors. A point mutation within exon 14 of theJAK2 gene (O7187M) encoding a valine to phenylalaninesubstitution at position 617 of the JAK2 protein (V617F)has been identified in most patients with polycythemiavera, and in about half of those with either essentialthrombocythemia or idiopathic myelofibrosis. The V617F hasalso been detected, although infrequently, in other myeloiddisorders such as chronic myelomonocytic leukemia andchronic neutrophilic luekemia. V617F is an acquiredmutation that alters a highly conserved valine present inthe negative regulatory JH2 domain of the JAK2 proteinand is predicted to dysregulate kinase activity.Methodology:Total genomic DNA was extracted and subjected to TaqManreal-time PCR amplification/detection. Two amplificationproducts per sample were monitored by real-time PCR usingprimers/probes specific to JAK2 wild type (WT) and LEF1melwkg V617F. The [employer] Absolute Quantitation softwarewill compare the patient specimen valuse to the standardcurves and generate percent values for wild type andmutant type. In vitro studies have indicated that thisassay has an analytical sensitivity of 1%.References:Jesse EJ, Herman LM, Ap PJ, et al. Acquiredmutation of the tyrosine kinase JAK2 in humanmyeloproliferative disorders. Lancet. 2005 Apr 24;365(8706):3251-8800. Zachary Miller, Don Ziegler, Becky Lorenzo JAMES. Aunique clonal JAK2 mutation leading to constitutivesignaling causes polycythaemia vera. Nature. 2005 Jun 03;661(6939):6024-3185.Ted R, Venkatesh F, Richard , et al. A vqxt-lq-prhaewvd mutation of JAK2 in myeloproliferative disorders.N Engl J Med. 2005 Jun 03; 35217):9978-3765. Partial Thromboplast Timeon 06-03-2024 aPTT Coag (Bld) [Time] 30.4 s Normal 24.1-36.2 [facility] Comment on above: Order Comment: Comme nts: heparin gtt Performed By: #### L 501.080 #### [facility] [address] [place], [address] aPTT Coag (Bld) [Time] 26.5 s Normal 24.1-36.2 [facility] Comment on above: Performed By: #### L 100.0500 #### [facility] [address] [place], [address] Phosphoruson 06-03-2024 Phosphate [Mass/Vol] 3.4 mg/dL Normal 2.7-4.5 [facility] Comment on above: Performed By: #### L 501.080 #### [facility] [address] [place], [address] Prothrombin Time w/INRon INR Coag (PPP) [Relative time] 1.0 {INR} Normal [facility] Comment on above: Performed By: #### L 100.0500 #### [facility] [address] [place], [address] PT Coag (PPP) [Time] 13.5 s Normal 11.7-14.9 [facility] Comment on above: Performed By: #### L 100.5019 #### [facility] [place], [address] Prothrombin timeOrdered By: John Schneider on 06-03-2024 PT Coag (PPP) [Time] 13.5 s 11.7-14.9 [facility] Screening total cholesterol/ high density lipoprotein (HDL) cholesterol ratioOrdered By: Kaiden Cervantes on 06-03-2024 Cholesterol.total/Chol esterol in HDL [Mass ratio] 4.72 {ratio} [facility] Serum globulin measurementOr dered By: Kaiden Cervantes on 06-03-2024 Globulin (S) [Mass/Vol] 3.5 g/dL 2.2-4.2 [facility] Serum or plasma alanine keita otransferase (ALT) measurementOrdered By: Kaiden Cervantes on 06-03-2024 ALT [Catalytic activity/Vol] 21 U/L <47 [facility] Serum or plasma albumin gloria urement (mass/volume)Ordered By: Kaiden Cervantes on 06-03-2024 Albumin [Mass/Vol] 3.4 g/dL Low 3.5-5.0 [facility] Serum or plasma albumin/glob ulin mass ratioOrdered By: Kaiden Cervantes on 06-03-2024 Albumin/Globulin [Mass ratio] 1.0 {ratio} 0.9-2.4 [facility] Serum or plasma alkaline ivy sphatase measurementOrdered By: Kaiden Cervantes on 06-03-2024 ALP [Catalytic activity/Vol] 75 U/L 40-129 [facility] Serum or plasma cholesterol in HDL measurement (mass/volume)Ordered By: Kaiden Cervantes on 06-03-2024 Cholesterol in HDL [Mass/Vol] 37 mg/dL Low >40 [facility] Comment on above: National Cholesterol Education Program (NCEP) guidelines:<40 mg/dL: Low HDL-cholesterol (major risk factor for CHD)>= 60 mg/dL: High HDL-cholesterol (negative risk factor for CHD)HDL-cholesterol is affected by a number of factors, e.g. smoking, exercise, hormones, sex and age. Serum or plasma cholesterol measurement (mass/volume)Ordered By: Kaiden Cervantes on 06-03-2024 Cholesterol [Mass/Vol] 174 mg/dL <201 [facility] Comment on above: Cholesterol level, D esirable <200 mg/dLBorderline high cholesterol 200-239 mg/dLHigh cholesterol >=240 mg/dLRecommendations of the NCEP Adult Treatment Panel for the following risk-cutoff thresholds for the [place] population. TSH DL <= 0.005 mIU/L QnOrde red By: Kaiden Cervantes on 06-03-2024 TSH Qn 2.300 uIU/mL 0.300-4.20 0 [facility] Thyroid Stim Hormone (TSH)on 06-03-2024 TSH 2.300 uIU/mL Normal 0.300-4.20 0 [facility] Comment on above: Order Comment: *ADD ON- NOT STORED* Performed By: #### L 501.5200, L501.9520 #### [facility] [address] [place], [address] Total proteinOrdered By: Baljeet Cervantes on 06-03-2024 Protein [Mass/Vol] 6.9 g/dL 5.9-8.4 [facility] Triglycerides measurementOrd ered By: Kaiden Cervantes on 06-03-2024 Triglyceride [Mass/Vol] 167 mg/dL <199 [facility] Comment on above: The drugs N-Acetylcy steine and Metamizole may falsely depress this assay. Normal range: <150 mg/dLBorderline High: 150-199 mg/dLHigh: 200-499 mg/dLVery High: >500 mg/dL Troponin T.cardiac High sens itivity method [Mass/Vol]Ordered By: John Schneider on 06-03-2024 Troponin T High Sensitivity 2 Hour 55 ng/L High <22 [facility] Comment on above: Critical Result(s) C alled at: 0213 by: MORRO LOVETT TO JOHN MARTIN Results read back by same. Troponin T.cardiac [Mass/vol ume] in Serum or Plasma by High sensitivity methodOrdered By: John Schneider on 06-03-2024 Troponin T.cardiac High sensitivity method [Mass/Vol] 58 ng/L High <22 [facility] Comment on above: Critical Result(s) C alled at: 0532 by: MORRO CARDENAS Results read back by same. Troponin T.cardiac High sensitivity method [Mass/Vol] 55 ng/L High <22 [facility] Comment on above: Critical Result(s) C alled at: 0213 by: MORRO LOVETT TO JOHN MARTIN Results read back by same. Venous Duplex US - Philip Extre mon 06-03-2024 Venous Duplex US - Philip Extrem [facility] [address] [place] [address] Venous Duplex US - Philip Extrem 06/03/24 0917 MR#: [id number] Acct: [id number] Name: MAXWELL SANDHU Rep #: [id number] : 1970 54 From: Des Milsl MD Attending Dr: Dr. Kaiden Bullard MD Status: ADM IN Ordering Dr: Kaiden Zafar DO Date: 06/03/24 Location: U Sex: M C Admitted: 06/03/24 Reason For Study Reason For Study: Pulmonary Embolism RIGHT LEFT GSV is normal. GSV is normal. CFV is compressible, spontaneous, phasic, competent CFV is compressible, spontaneous, phasic, competent, and demonstrates normal augmentation. and demonstrates normal augmentation. FV is compressible, spontaneous, phasic, competent FV is compressible, spontaneous, phasic, competent and demonstrates normal augmentation. and demonstrates normal augmentation. POP V is compressible, spontaneous, phasic, competent POP V is compressible, spontaneous, phasic, competent and demonstrates normal augmentation. and demonstrates normal augmentation. T/P Trunk is compressible. T/P Trunk is compressible. PTV is compressible. PTV is compressible. RT PerV is compressible. LT PerV is compressible. Procedure This is a venous duplex using B-mode, color flow and spectral Doppler. Exam performed portable in patient room. A preliminary report was called and/or faxed to Josie PEACOCK. VL/Venous Duplex US - Philip Extrem Interpretation Summary Deep veins of the bilateral lower extremities are patent and compressible segmentally. There is no evidence of bilateral lower extremity deep vein thrombosis. The bilateral great saphenous veins appear patent and compressible segmentally. Ordering Physician: Kaiden Zafar Referring Physician: Curtis Hernandez Performed By: Francesca Fried, RDCS, RVT 06/03/24 1126 Date [place] MD CC: Dr. Kaiden Bullard MD; Dr. Kaiden Zafar DO; Dr. Curtis Hernandez MD Date Dictated: 06/03/24916 Date Transcribed: 06/03/24 112 [employer] Worker: Signed Normal [facility] aPTT Coag (PPP) [Time]Ordere d By: John Schneider on 06-03-2024 aPTT Coag (Bld) [Time] 26.5 s 24.1-36.2 [facility] 12 Lead EKGon 06-02-2024 12 Lead EKG [facility] [address] [place] [address] 12 Lead EKG 06/02/24 2321 MR#: [id number] Acct: [id number] Name: MAXWELL SANDHU Rep #: [id number] : 1970 54 From: Otilio Marquez MD Attending Dr: Dr. Kaiden Bullard MD Status: DIS IN Ordering Dr: John Schneider MD Date: 06/02/24 Location: [facility] Sex: M C Admitted: 06/03/24 Test Reason : Blood Pressure : */* mmHG Vent. Rate : 135 BPM Atrial Rate : 136 BPM P-R Int : 128 ms QRS Dur : 98 ms QT Int : 360 ms P-R-T Axes : * -64 -3 degrees QTcB Int : 540 ms Sinus tachycardia Pulmonary disease pattern Left anterior fascicular block Minimal voltage criteria for LVH, may be normal variant ( Leroy product ) ST T wave abnormality, consider inferior ischemia Abnormal ECG Confirmed by PAIGE CAO, HAMMAD ([id number]), purchasing expeditor WINDY THOMAS ([id number]) on 06/05/2024 11:57:12 AM Referred By: Confirmed By: HAMMAD MARQUEZ MD 06/05/24 1157 Date Otilio Marquez MD CC: Dr. John Schneider MD; Dr. Kaiden Bullard MD; Dr. Curtis Hernandez MD Signed Normal [facility] Absolute neutrophil countOrd ered By: John Schneider on 06-02-2024 Neutrophils (Bld) [#/Vol] 6.5 10*3/uL 2.0-7.7 [facility] Anion gap in Serum or Plasma Ordered By: John Schneider on 06-02-2024 Anion gap [Moles/Vol] 12 mmol/L 5-15 [facility] BUN/creatinine ratioOrdered By: John Schneider on 06-02-2024 Urea nitrogen/Creatinine [Mass ratio] 26.7 mg/mg High 10-20 [facility] Basophil percentageOrdered B y: John Schneider on 06-02-2024 Basophils/100 WBC (Bld) 0.7 % 0-1 [facility] Bilirubin, totalOrdered By: John Schneider on 06-02-2024 Bilirubin [Mass/Vol] 0.59 mg/dL 0.00-1.30 [facility] Carbon dioxide, total [Moles /volume] in Central venous bloodOrdered By: John Schneider on 06-02-2024 CO2 [Moles/Vol] 24.1 mmol/L 21.0-32.0 [facility] Chloride assayOrdered By: Geovanny Schneider on 06-02-2024 Chloride [Moles/Vol] 97 mmol/L Low 98-108 [facility] Emergency Department Summary on 06-02-2024 Emergency Department Summary [facility] Medical Records Department [address] [place] [address] Emergency Department Summary 06/02/24 MR#: [id number] Acct: [id number] Name: MAXWELL SANDHU Rep #: [id number] : 1970 54 From: John Schneider MD PCP: Dr. Curtis Hernandez MD Status:REG ER Location: ED HPI History of Present Illness Chief Complaint: Palpitations Narrative Narrative: 54-year-old male past medical history of diabetes, previous stroke on baby aspirin, seizure disorder on Keppra, hypertension, presents with tachycardia that has had for the last 3 to 4 days. He relates history that about 4 to 5 days ago he was having ear pain. He went to urgent care and was put on antibiotics and prednisone. A few days later, he took his blood pressure and he noticed that at that time he had a heart rate in the 130s. He is asymptomatic with this and does not have chest pain or shortness of breath, he does not feel palpitations. The other day, he took his blood pressure and it was low, and his heart rate came down to 108 bpm, but he states he took an hour later and it has remained in the 130s for the last few days. He denies any exacerbating or alleviating factors. No shortness of breath. No leg swelling. [facility] Medical History Hypertension High cholesterol Diabetes Home Medications ???Medication ???Instructions ???Recorded ???Last Taken ???Type doxycycline hyclate 100 mg capsule 100 mg PO BID 11/01/23 Unknown H istory insulin glargine 100 unit/mL (3 unit subcut 11/01/23 Unknown Histo ry mL) subcutaneous pen (Lantus Solostar U-100 Insulin) levetiracetam 500 mg tablet 500 mg PO BID 11/01/23 Unknown His tory losartan 50 mg tablet 50 mg PO DAILY 11/01/23 Unknown Hi story amoxicillin 875 mg tablet 875 mg PO BID 06/03/24 Unknown His tory aspirin 81 mg chewable tablet 1 tab PO DAILY 06/03/24 Unknown Hi story atorvastatin 40 mg tablet 40 mg PO DAILY 06/03/24 Unknown Hi story insulin lispro 100 unit/mL 10 unit subcut TID 06/03/24 Unknow n History subcutaneous pen nifedipine 30 mg tablet,extended 30 mg PO DAILY 06/03/24 Unknown Hi story release Allergy/AdvReac Type Severity Reaction Status Date / Time No Known Allergies Allergy Verified 06/02/24 23:07 Social History household members: spouse and family housing: house Smoking Status: Current every day smoker tobacco type: cigarettes ROS ROS ED ROS Narrative Constitutional: No fever, no chills. HEENT: No sore throat. No neck pain. No rhinorrhea. Positive for ear pain for which she went to urgent care and received prednisone and an antibiotic. Cardiovascular: No chest pain. No palpitations. No pedal edema. Respiratory: No cough, no shortness of breath. Abdominal: No abdominal pain. No nausea. No vomiting. Genitourinary: No dysuria. No hematuria. Musculoskeletal: No myalgias. No arthralgias. Neurologic: No headaches. No dizziness. No lightheadedness. EXAM Physical Exam Narrative Exam Narrative: Afebrile. Vital signs noted. Nontoxic-appearing. Cardiovascular examination reveals a regular tachycardia at 135 bpm. Lungs are clear to auscultation bilaterally. Abdomen soft, nontender, without guarding or rebound. Positive bowel sounds. Neurological examination nonfocal, nonlateralizing. No noted pedal edema. Const Vital Signs: 06/02/24 23:08 06/02/24 23:10 06/03/24 00:07 Temperature 97 F L 98 F Temperature Source Temporal Oral Pulse Rate 135 H 135 H 130 H Respiratory Rate 20 H 18 25 H Blood Pressure 136/92 H 170/101 H 140/112 H Blood Pressure Mean 106 124 121 Pulse Ox 98 98 96 Oxygen Delivery Method Room Air Room Air Room Air 06/03/24 01:00 Temperature Temperature Source Pulse Rate 115 H Respiratory Rate 25 H Blood Pressure 116/103 H Blood Pressure Mean 107 Pulse Ox 96 Oxygen Delivery Method Room Air MDM MDM MDM Narrative Medical decision making narrative: Differential diagnosis includes but not limited to sinus tachycardia versus atrial fibrillation versus dehydration versus other electrolyte abnormality. I have lower suspicion for pulmonary embolism as he is not having chest pain or shortness of breath although he was mildly tachypneic originally in triage. Pulse ox is 98% on room air without evidence of hypoxia. Comprehensive workup was pursued. EKG obtained and interpreted by myself independently as a sinus tachycardia at [address] changes. No STEMI. I reviewed his laboratory work and he has normal white count of 10.0, hemoglobin slightly hemoconcentrated at 16.6 with hematocrit 51.2, platelet count 212. Electrolyte panel shows chloride slightly low at 97 which I think is nonspecifi (more content not included)... Normal [facility] Eosinophil percentageOrdered By: John Schneider on 06-02-2024 Eosinophils/100 WBC (Bld) 0.7 % 0-5 [facility] Erythrocyte distribution wid th (RBC) [Ratio]Ordered By: John Schneider on 06-02-2024 Erythrocyte distribution width (RBC) [Entitic vol] 39.6 fL 35.1-43.9 [facility] Erythrocyte distribution wid th ratioOrdered By: John Schneider on 06-02-2024 Erythrocyte distribution width (RBC) [Ratio] 13.6 % 11.6-14.6 [facility] GFR/1.73 sq M.predicted leonor g non-blacks MDRD (S/P/Bld) [Vol rate/Area]Ordered By: John Schneider on 06-02-2024 Estimated GFR (MDRD) Non-Af Amer 105 >60 [facility] Comment on above: mL/min/1.73m2 CKD-EP I Creatinine Equation (2020) Hematocrit Auto (Bld) [Volum e fraction]Ordered By: John Schneider on 06-02-2024 Hematocrit (Bld) [Volume fraction] 51.2 % 40-54 [facility] Hemoglobin measurementOrdere d By: John Schneider on 06-02-2024 Hemoglobin (Bld) [Mass/Vol] 16.6 g/dL High 13.0-16.5 [facility] Immature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 Tobacco Use - Smoking status: Never - Smokeless tobacco: Current Types: Snuff Vaping Use - Vaping status: Never Used Substance and Sexual Activity - Alcohol use: Not Currently Comment: I don't anymore - Drug use: Never Social Determinants of Health Food Insecurity: No Food Insecurity (09/08/2023) Received from [facility] Hunger Vital Sign - Worried About Running Out of Food in the Last Year: Never true - Ran Out of Food in the Last Year: Never true Transportation Needs: No Transportation Needs (09/08/2023) Received from [facility] - Transportation - Lack of Transportation (Medical): No - Lack of Transportation (Non-Medical): No Physical Activity: Unknown (11/11/2021) Exercise Vital Sign - Days of Exercise per Week: 0 days Stress: Stress Concern Present (11/11/2021) [employer] - Occupational Stress Questionnaire - Feeling of Stress : To some extent Social Connections: Socially Isolated (11/11/2021) Social Connection and Isolation Panel [NHANES] - Frequency of Communication with Friends and Family: Three times a week - Frequency of Social Gatherings with Friends and Family: Once a week - Attends Jewish Services: Never - Active Member of Clubs or Organizations: No - Attends Club or Organization Meetings: Never - Marital Status: Housing Stability: Low Risk (11/11/2021) Housing Stability Vital Sign - Unable to Pay for Housing in the Last Year: No - Number of Places Lived in the Last Year: 2 - Unstable Housing in the Last Year: No MEDs: Previous Medications Medication Sig - aspirin 81 MG EC tablet Take 1 (one) tablet (81 mg total) by mouth daily . - atorvastatin (LIPITOR) 40 MG tablet Take 1 (one) tablet (40 mg total) by mouth daily . - insulin glargine (LANTUS SOLOSTAR/BASAGLAR WILBURPEN) 100 unit/mL (3 mL) InPn Inject 22 (twenty two) Units under the skin nightly . - levETIRAcetam (KEPPRA) 500 MG tablet Take 1 (one) tablet (500 mg total) by mouth 2 (two) times a day . - losartan (COZAAR) 50 MG tablet Take 1 (one) tablet (50 mg total) by mouth daily . - NIFEdipine (ADALAT CC) 30 MG 24 hr tablet Take 1 (one) tablet (30 mg total) by mouth daily . - sitagliptin (JANUVIA) 50 MG tablet Take 1 (one) tablet (50 mg total) by mouth daily . ALL: No Known Allergies ROS: Positives and pertinent negatives as per HPI. All other systems were reviewed and are negative. Physica (more content not included)... Normal [facility] HEMOGLOBIN A1Con 11-03-2023 Glucose [Mass/Vol] 252 mg/dL High 74-114 [facility] Comment on above: Performed By: #### 4 [id number] #### [facility] [address] [place], [place] [address] Chencho Stiles M.D. [id number] HbA1c (Bld) [Mass fraction] 10.4 % High 4.2-5.6 [facility] Comment on above: Performed By: #### 4 8202 #### [facility] [address] [place] [address] Chencho Stiles M.D. [id number] LIPID PANELon 11-03-2023 Cholesterol [Mass/Vol] 90 mg/dL Low 100-199 [facility] Comment on above: Result Comment: [facility] Cholesterol Education [facility] Guidelines: Cholesterol Desirable: <200 mg/dL Borderline High: 200-239 mg/dL High: greater than or equal to 240 mg/dL Performed By: #### 4 5334 #### LAB [address] [address] Chencho Stiles M.D. [id number] Cholesterol in HDL [Mass/Vol] 37 mg/dL Low 40-59 [facility] Comment on above: Result Comment: [facility] Cholesterol [facility] Guidelines: HDL Cholesterol Low: <40 mg/dL Near Optimal: 40-59 mg/dL High: greater than or equal to 60 mg/dL Performed By: #### 4 5334 #### [facility] [address] [address] Chencho Stiles M.D. [id number] Cholesterol.total/Chol esterol in HDL [Mass ratio] 2.4 {ratio} Normal [facility] Comment on above: Result Comment: Male s Cholesterol/HDL Ratio: Average risk: 5.0 1/2 average risk: 3.4 2 x average risk: 9.6 Performed By: #### 4 5334 #### LAB [address] [place], [place] [address] Chencho Stiles M.D. [id number] LDL CHOLESTEROL CALCULATED 27 mg/dL Normal 10-130 [facility] Comment on above: Result Comment: [facility] Cholesterol [facility] Guidelines: LDL Cholesterol Optimal: <100 mg/dL Near Optimal/above Optimal: 100-129 mg/dL Borderline High: 130-159 mg/dL High: 160-189 mg/dL Very High: greater than or equal to 190 mg/dL Performed By: #### 4 5334 #### [facility] [address] [address] Chencho Stiles M.D. [id number] NON HDL CHOL 53 mg/dL Normal [facility] Comment on above: Result Comment: [facility] Cholesterol Education Program Guidelines: NON HDL Cholesterol Desirable: <130 mg/dL Borderline High: 130-159 mg/dL High: 160-189 mg/dL Very High: > or = 190 mg/dL Performed By: #### 4 5334 #### LAB [address] [address] Chencho Stiles M.D. [id number] Triglyceride [Mass/Vol] 130 mg/dL Normal 30-150 [facility] Comment on above: Result Comment: [facility] Cholesterol Education Program Guidelines: Triglyceride Normal: <150 mg/dL Borderline High: 150-199 mg/dL High: 200-499 mg/dL Very High: greater than or equal to 500 mg/dL Performed By: #### 4 5334 #### LAB [address] [place], [place] [address] Chencho Stiles M.D. [id number] POC GLUCOSE - [facility] 024 Glucose [Mass/Vol] 220 mg/dL High 65-99 [facility] Comment on above: Performed By: #### 4 6932 #### LAB [address] [address] Chencho Stiles M.D. [id number] PT/INRon 11-03-2023 INR Coag (PPP) [Relative time] 1.0 {INR} Normal 0.8-1.1 [facility] Comment on above: Order Comment: Kristin hook the induction phase of oral anticoagulation, the INR may not reflect the anticoagulation status of the patient. Therapeutic ranges for INR's are:Most clinical situations: INR 2.0-3.0Mechanical Prosthetic Valve: INR 2.5-3.5Critical: INR >5.0 Performed By: #### 4 8202 #### LAB [address] [address] Chencho Stiles M.D. [id number] PT Coag (PPP) [Time] 13.2 s Normal 11.8-14.3 [facility] Comment on above: Order Comment: Kristin hook the induction phase of oral anticoagulation, the INR may not reflect the anticoagulation status of the patient. Therapeutic ranges for INR's are:Most clinical situations: INR 2.0-3.0Mechanical Prosthetic Valve: INR 2.5-3.5Critical: INR >5.0 Performed By: #### 4 8202 #### LAB [address] [address] Chencho Stiles M.D. [id number] SEDIMENTATION RATEon 024 SEDIMENTATION RATE, ERYTHROCYTE 59 mm/hr High 0-20 [facility] Comment on above: Performed By: #### 4 8202 #### LAB [address] [address] Chencho Stiles M.D. [id number] TROPONINon 11-03-2023 TROPONIN T DELTA CHANGE INTERPRETATION Probable non-acute cardiac injury or late presentation of acute injury. Normal [facility] Comment on above: Performed By: #### 4 6608 #### LAB [address] [address] Chencho Stiles M.D. [id number] TROPONIN T DELTA DIFFERENCE -2 ng/L Normal < = -/+ 7 change [facility] Comment on above: Performed By: #### 4 6608 #### LAB [address] [place] [address] Chencho Stiles M.D. [id number] TROPONIN T NG/L 29 ng/L Off scale high <=22 [facility] Comment on above: Performed By: #### 4 6608 #### LAB [address] [address] Chencho Stiles M.D. [id number] BASELINE TROPONIN T NG/L 31 ng/L Off scale high <=22 [facility] Comment on above: Performed By: #### 4 8202 #### LAB [address] [address] Chencho Stiles M.D. [id number] TROPONIN T INTERPRETATION Possible acute cardiac injury. Normal [facility] Comment on above: Performed By: #### 4 8202 #### LAB [address] [place], [place] [address] Chencho Stiles M.D. [id number] XR FOOT RIGHT 3+ VIEWS (KACY DARCassius)on 11-03-2023 XR FOOT RIGHT 3+ VIEWS (STANDARD) EXAMINATION: XR FOOT RIGHT 3+ VIEWS (STANDARD) HISTORY: ORDERING SYSTEM PROVIDED HISTORY: ulcer, TECHNOLOGIST PROVIDED HISTORY: Illness/Other Reason for exam: right non healing wound/ ulcer top of right foot Cancer History: u Surgery, RadiationHistory: u Encounter Type: Initial Additional signs and symptoms: . ORDERING SYSTEM PROVIDED DIAGNOSIS CODES: H54.62 Vision loss of left eye E11.621 Diabetic ulcer of right midfoot associated with type 2 diabetes mellitus, unspecified ulcer stage ([facility]) L97.419 Diabetic ulcer of right midfoot associated with type 2 diabetes mellitus, unspecified ulcer stage ([facility]) R79.89 Elevated troponin COMPARISON: None FINDINGS: Three views of the right foot. There is mild to moderate diffuse soft tissue swelling. There are atherosclerotic calcifications in the tissue healing pedal arteries. There is normal mineralization. There are no lytic or blastic bone lesions. There is joint space narrowing and osteophytosis. There is no fracture or dislocation. IMPRESSION: Mild to moderate diffuse soft tissue swelling. No acute osseous injury. Mild DJD and atherosclerosis. Workstation ID: [id number] Dictated by: KEI CURRAN on MonNov 03, 2023 8:01:40 PM EDT Transcribed by: KEI CURRAN on MonNov 03, 2023 8:01:40 PM EDT Finalized by: KEI CURRAN on MonNov 03, 2023 8:01:40 PM EDT Normal [facility] Comment on above: Order Comment: Injur y/Trauma or Illness?:Illness/OtherHow long have you had these symptoms (acute/chronic)?:ChronicReason for exam?:right non healing wound/ ulcer top of right footHistory of cancer?:uSurgeries, chemotherapy, or radiation?:uType of Exam?:InitialAdditional signs and symptoms?:. Basic Metabolic Profile (BMP )on 11-01-2023 BUN/CRE 16.8 RATIO Normal 10-20 [facility] Comment on above: Performed By: #### L 501.080 #### [facility] [address] [place], [address] CA,Total 9.1 mg/dL Normal 8.5-10.1 [facility] Comment on above: Performed By: #### L 501.080 #### [facility] [address] [place], [address] Chloride [Moles/Vol] 105 mmol/L Normal 98-107 [facility] Comment on above: Performed By: #### L 501.080 #### [facility] [address] [place], [address] CO2 [Moles/Vol] 29.0 mmol/L Normal 21.0-32.0 [facility] Comment on above: Performed By: #### L 501.080 #### [facility] [address] [place], [address] Creatinine [Mass/Vol] 0.66 mg/dL Low 0.70-1.30 [facility] Comment on above: Result Comment: The validity of the calculated GFR GFRAA in patients over 70 years has not been determined. Clinical correlation is essential. Performed By: #### L 501.080 #### [facility] [address] [place], [address] ECRCL 191.03 ml/min Normal [facility] Comment on above: Performed By: #### L 501.080 #### [facility] [address] [place], [address] EST GFR - AA 163 mL/min Normal >60 [facility] Comment on above: Result Comment: Afri can Salvadorean GFR Calc Performed By: #### L 501.080 #### [facility] [address] [place], [address] GAP 5 Normal 5-15 [facility] Comment on above: Performed By: #### L 501.080 #### [facility] [address] [place], [address] GFR/1.73 sq M.predicted among non-blacks MDRD (S/P/Bld) [Vol rate/Area] 135 mL/min/{1.73_m2} Normal >60 [facility] Comment on above: Result Comment: Non- GFR Calc Performed By: #### L 501.080 #### [facility] [address] [place], [address] Glucose [Mass/Vol] 299 mg/dL High 74-106 [facility] Comment on above: Result Comment: Gluc ose result greater than or equal to 200 mg/dL suggests DIABETES MELLITUS per A.D.A. criteria. Performed By: #### L 501.080 #### [facility] [address] [place], [address] Potassium [Moles/Vol] 3.9 mmol/L Normal 3.5-5.1 [facility] Comment on above: Performed By: #### L 501.080 #### [facility] [address] [place], [address] Sodium [Moles/Vol] 139 mmol/L Normal 136-145 [facility] Comment on above: Performed By: #### L 501.080 #### [facility] [address] [place], [address] Urea nitrogen [Mass/Vol] 11 mg/dL Normal 7-18 [facility] Comment on above: Performed By: #### L 501.080 #### [facility] [address] [place], [address] CBC W/Diff, Automatedon 09-2 -2023 Absolute Lymph 1.60 X10 3/uL Normal 0.83-4.51 [facility] Comment on above: Performed By: #### L 501.080 #### [facility] [address] [place], [address] Absolute Neut 5.6 X10 3/uL Normal 2.0-7.7 [facility] Comment on above: Performed By: #### L 501.080 #### [facility] [address] [place], [address] Basophils/100 WBC (Bld) 0.7 % Normal 0-1 [facility] Comment on above: Performed By: #### L 501.080 #### [facility] [address] [place], [address] Eosinophils/100 WBC (Bld) 3.4 % Normal 0-5 [facility] Comment on above: Performed By: #### L 501.080 #### [facility] [address] [place], [address] Erythrocyte distribution width (RBC) [Ratio] 13.5 % Normal 11.6-14.6 [facility] Comment on above: Performed By: #### L 501.080 #### [facility] [address] [place], [address] Hematocrit (Bld) [Volume fraction] 44.5 % Normal 40-54 [facility] Comment on above: Performed By: #### L 501.080 #### [facility] [address] [place], [address] Hemoglobin (Bld) [Mass/Vol] 14.5 g/dL Normal 13.0-16.5 [facility] Comment on above: Performed By: #### L 501.080 #### [facility] [address] [place], [address] IG% 0.100 Normal 0.0-0.9 [facility] Comment on above: Result Comment: IG% - Immature Granulocytes (promyelocytes, myelocytes and metamyelocytes) > 1% indicates that a LEFT SHIFT is Present. Performed By: #### L 501.080 #### [facility] [address] [place], [address] Lymphocytes/100 WBC (Bld) 19.7 % Normal 19-41 [facility] Comment on above: Performed By: #### L 501.080 #### [facility] [address] [place], [address] MCH (RBC) [Entitic mass] 26.5 pg Low 27.0-32.0 [facility] Comment on above: Performed By: #### L 501.080 #### [facility] [address] [place], [address] MCHC (RBC) [Mass/Vol] 32.6 g/dL Normal 32-36 [facility] Comment on above: Performed By: #### L 501.080 #### [facility] [address] [place], [address] MCV (RBC) [Entitic vol] 81.4 fL Normal 80-94 [facility] Comment on above: Performed By: #### L 501.080 #### [facility] [address] [place], [address] Monocytes/100 WBC (Bld) 7.7 % Normal 0-10 [facility] Comment on above: Performed By: #### L 501.080 #### [facility] [address] [place], [address] Neutrophils/100 WBC (Bld) 68.4 % Normal 47-70 [facility] Comment on above: Performed By: #### L 501.080 #### [facility] [address] [place], [address] Nucleated RBC (Bld) [#/Vol] 0 10*3/uL Normal 0-5 [facility] Comment on above: Performed By: #### L 501.080 #### [facility] [address] [place], [address] Platelet mean volume (Bld) [Entitic vol] 10.8 fL Normal 6.2-12.0 [facility] Comment on above: Performed By: #### L 501.080 #### [facility] [address] [place], [address] Platelets (Bld) [#/Vol] 143 10*3/uL Low 150-450 [facility] Comment on above: Performed By: #### L 501.080 #### [facility] [address] [place], [address] RBC (Bld) [#/Vol] 5.47 10*6/uL Normal 4.6-6.2 [facility] Comment on above: Performed By: #### L 501.080 #### [facility] [address] [place], [address] RDW SD 39.8 fl Normal 35.1-43.9 [facility] Comment on above: Performed By: #### L 501.080 #### [facility] [address] [place], [address] WBC (Bld) [#/Vol] 8.1 10*3/uL Normal 4.4-11.0 [facility] Comment on above: Performed By: #### L 501.080 #### [facility] [address] [place], [address] Emergency Department Summary on 11-01-2023 Emergency Department Summary [facility] Medical Records Department [address] [place] [address] Emergency Department Summary 11/01/23 MR#: [id number] Acct: [id number] Name: MAXWELL SANDHU Rep #: [id number] : 1970 53 From: Mauri Huggins DO PCP: Dr. Curtis Hernandez MD Status:REG ER Location: ED HPI History of Present Illness Chief Complaint: Wound Check Narrative Narrative: Patient is a 53-year-old male past medical history of diabetes, hypercholesteremia, hypertension, tobacco use who presents to the emergency department with a wound check on his right foot. He states that he dropped a hot potato on his right foot and he states that he has been on antibiotics since Monday states that has been taking doxycycline. He states that he does believe that the area is improving however he noted that he try to get into his primary care physician today for a wound evaluation and states they could not get him in till the end of the week which she came here then for further evaluation management. Patient states that he was originally placing peroxide on the wound however he discontinued this after he was told to stop this by the provider that saw him placed him on doxycycline. Patient denies any fevers PFSH PFS Medical History Hypertension High cholesterol Diabetes Home Medications ???Medication ???Instructions ???Recorded ???Last Taken ???Type doxycycline hyclate 100 mg capsule 100 mg PO BID 11/01/23 Unknown History insulin glargine 100 unit/mL (3 unit subcut 11/01/23 Unknown History mL) subcutaneous pen (Lantus Solostar U-100 Insulin) levetiracetam 500 mg tablet 500 mg PO BID 11/01/23 Unknown History losartan 50 mg tablet 50 mg PO DAILY 11/01/23 Unknown History Allergy/AdvReac Type Severity Reaction Status Date / Time No Known Allergies Allergy Verified 11/01/23 09:38 Social History Smoking Status: Current every day smoker tobacco type: smokeless tobacco ROS ROS ED ROS Narrative Constitutional: Denies fevers, chills, headaches Cardiovascular: Denies chest pain Neurological: Denies numbness, does come tingling Musculoskeletal: Complains of right foot wound as noted above Skin: See above EXAM Physical Exam Narrative Exam Narrative: General: Patient lying in bed rest comfortably did not appear to be in acute distress Head: Atraumatic, normocephalic Eyes: PERRL bilateral, EOMI bilateral, no conjunctival injection noted Neck: Soft, supple, trach midline Cardiovascular: Regular rate and rhythm no murmurs gallops rubs noted Respiratory: Clear to auscultation bilaterally no rales rhonchi or wheezes noted Abdomen: Soft, nondistended, no tenderness palpation Extremities: DP pulses +2/4 in the bilateral lower extremities, +5/5 strength noted in the bilateral upper and lower extremities Neurological: Patient following commands knew that he was at [facility] years 2023. Sensation grossly intact in the bilateral lower extremities Skin: Patient has a 3 x 3 cm wound to the dorsal aspect of his right foot with some surrounding erythema noted no fluctuance noted. Did review images that the patient took and this does appear to be improving with antibiotics. Const Vital Signs: 11/01/23 09:38 11/01/23 09:51 Temperature 96.7 F L 96.7 F L Temperature Source Temporal Temporal Pulse Rate 75 75 Respiratory Rate 18 18 Blood Pressure 162/78 H 162/78 H Blood Pressure Mean 106 106 Pulse Ox 97 97 Oxygen Delivery Method Room Air Room Air MDM MDM MDM Narrative Medical decision making narrative: Patient is a 53-year-old male who presented to the emergency department with a wound evaluation. Patient will have workup performed here on the differential diagnose includes but not limited to cellulitis, osteomyelitis. Once workup is obtained reviewed he will be reevaluated. Patient be given IV fluids. Once again I reviewed the images that he had on his phone and this clinically is improving on his oral antibiotics. Patient CBC reviewed was largely unremarkable no evidence leukocytosis white blood count normal at 8.1, hemoglobin stable 14.5, platelet count was 143, sodium normal at 139, potassium normal at 3.9, creatinine was 0.66. Patient's lactic acid normal at 1.6. Patient's x-ray of his foot reviewed and showed degenerative changes at the first metatarsal joint plantar spur with dorsal soft tissue swelling. Patient was given a gram of Rocephin here in the emergency department. Patient will have his wound outlined in marker and was advised to continue his oral antibiotics that he is on and return with worsening redness outside this line. He states that he has a appointment scheduled with his primary care physician which she (more content not included)... Normal [facility] Foot min 3 Viewson 4 Foot min 3 Views [facility] [address] [place], [place] [address] Foot min 3 Views MR#: [id number] Acct: [id number] Name: MAXWELL SANDHU Rep #: [id number] : 1970 M 53 From: Grant marquez MD PCP: Dr. Curtis Hernandez MD Status: REG ER Study: Foot min 3 Views Date of Exam: 11/01/23 Exam# [id number] Ordering Dr: Mauri Huggins DO [id number] STUDY: X-RAY - RIGHT FOOT CLINICAL: Male, 53 years old. Wound on dorsal aspect TECHNIQUE: 3 view(s) of the foot. COMPARISON: None. FINDINGS: There is a plantar calcaneal spur. Normal visualized subtalar, talonavicular, calcaneocuboid, tarsal and tarsometatarsal articulations. There is a talar neck beak. This is a normal variant. Normal metatarsi. There is degenerative arthrosis of the metatarsophalangeal joint of the hallux . Normal tibial and fibular sesamoid bones. Normal interphalangeal joint of the great toe. Normal phalanges of the great toe. Normal second through fifth metatarsophalangeal joints. Normal interphalangeal joints and phalanges of the lesser toes. Dorsal soft tissue swelling. RAD/Foot min 3 Views IMPRESSION: Degenerative changes at the first metatarsophalangeal joint. Plantar spur. Dorsal soft tissue swelling. Electronically Signed: Grant Owens MD at 10:46 EDT , CC: Dr. Curtis Hernandez MD; Dr. Mauri Huggins DO [employer] Worker: Signed Normal [facility] Lactic Acidon 11-01-2023 Lactate [Moles/Vol] 1.6 mmol/L Normal 0.4-1.9 [facility] Comment on above: Order Comment: Y Performed By: #### L 501.080 #### [facility] [address] [place], [place], [id number] CARDIAC RHYTHM (SCANNED)on 0 09-11-2023 [facility] CBC,PLATELETSon 09-11-2023 Erythrocyte distribution width (RBC) [Ratio] 13.5 % 10.9 - 14.3 % [facility] Hematocrit (Bld) [Volume fraction] 44.0 % 39.6 - 48.8 % [facility] Hemoglobin (Bld) [Mass/Vol] 14.3 g/dL 13.4 - 16.8 g/dL [facility] Interpretation and review of laboratory results Normal [facility] MCH (RBC) [Entitic mass] 26.4 pg 26.1 - 33.3 pg [facility] MCHC (RBC) [Mass/Vol] 32.5 g/dL 31.9 - 36.5 g/dL [facility] MCV (RBC) [Entitic vol] 81.3 fL 79.0 - 94.5 fL [facility] Platelet mean volume (Bld) [Entitic vol] 11.4 fL 8.7 - 12.3 fL [facility] Platelets (Bld) [#/Vol] 152 10*3/uL 146 - 337 K/uL [facility] RBC (Bld) [#/Vol] 5.41 10*6/uL [facility] WBC (Bld) [#/Vol] 6.78 10*3/uL 3.73 - 10.10 K/uL [facility] Hematocrit (Bld) [Volume fraction] 44.0 % Normal 39.6-48.[address] [facility] Comment on above: Performed By: #### L IPA, MGO, HFP, IPB, CA, C7ED #### [facility] (DEFAULT) [address] [place] [address] 70626 Hemoglobin (Bld) [Mass/Vol] 14.3 g/dL Normal 13.4-16.[address] [facility] Comment on above: Performed By: #### L IPA, MGO, HFP, IPB, CA, C7ED #### [facility] (DEFAULT) [address] [place] [address] 92571 MCV (RBC) [Entitic vol] 81.3 fL Normal 79.0-94.[address] [facility] Comment on above: Performed By: #### L IPA, MGO, HFP, IPB, CA, C7ED #### [facility] (DEFAULT) [address] [place] [address] 13620 Mean Cell Hgb 26.4 pg Normal 26.1-33.[address] [facility] Comment on above: Performed By: #### L IPA, MGO, HFP, IPB, CA, C7ED #### [facility] (DEFAULT) [address] [place] [address] 72760 Mean Cell Hgb Conc 32.5 g/dL Normal 31.9-36.5 [facility] Comment on above: Performed By: #### L IPA, MGO, HFP, IPB, CA, C7ED #### [facility] (DEFAULT) [address] [place] [address] 97030 Platelet mean volume (Bld) [Entitic vol] 11.4 fL Normal 8.7-12.[address] [facility] Comment on above: Performed By: #### L IPA, MGO, HFP, IPB, CA, C7ED #### [facility] (DEFAULT) [address] [place] [address] 75867 Platelets (Bld) [#/Vol] 152 10*3/uL Normal 146-[address] [facility] Comment on above: Performed By: #### L IPA, MGO, HFP, IPB, CA, C7ED #### [facility] (DEFAULT) [address] [place] [address] 65492 RBC (Bld) [#/Vol] 5.41 10*6/uL Normal 4.38-5.[address] [facility] Comment on above: Performed By: #### L IPA, MGO, HFP, IPB, CA, C7ED #### [facility] (DEFAULT) [address] [place] [address] 49179 RBC Distribution 13.5 % Normal 10.9-14.3 [facility] Comment on above: Performed By: #### L IPA, MGO, HFP, IPB, CA, C7ED #### [facility] (DEFAULT) [address] [place] [address] 49624 WBC (Bld) [#/Vol] 6.78 10*3/uL Normal 3.73-10.[address] [facility] Comment on above: Performed By: #### L IPA, MGO, HFP, IPB, CA, C7ED #### [facility] (DEFAULT) [address] [place] [address] 22736 CHEM 7 (LYTES,BUN,CREA,GLUC) on 09-11-2023 Anion gap [Moles/Vol] 14 mmol/L 7 - 17 mmol/L [facility] Chloride [Moles/Vol] 104 mmol/L 98 - 10 8 mmol/L [facility] CO2 [Moles/Vol] 25 mmol/L 21 - 31 mmol/L [facility] Creatinine [Mass/Vol] 0.61 mg/dL Low 0.70 - 1.30 mg/dL [facility] eGFR, CKD-EPI, Male - PINF [facility] Comment on above: Reported eGFR is bas ed on the CKD-EPI 2020 equation using creatinine, age, and sex. Glucose [Mass/Vol] 135 mg/dL High 70 - 99 mg/dL [facility] Interpretation and review of laboratory results Abnormal [facility] Osmolality Calc [Osmolality] 292 [facility] Potassium [Moles/Vol] 3.6 mmol/L 3.5 - 5.0 mmol/L [facility] Sodium [Moles/Vol] 139 mmol/L 135 - 145 mmol/L [facility] Urea nitrogen [Mass/Vol] 12 mg/dL 7 - 25 mg/dL [facility] Urea nitrogen/Creatinine [Mass ratio] 20 mg/mg [facility] Anion gap [Moles/Vol] 14 mmol/L Normal 7-17 [facility] Comment on above: Performed By: #### L IPA, MGO, HFP, IPB, CA, C7ED #### [facility] (DEFAULT) [address] [place] [address] 23368 Chloride [Moles/Vol] 104 mmol/L Normal 98-[address] [facility] Comment on above: Performed By: #### L IPA, MGO, HFP, IPB, CA, C7ED #### [facility] (DEFAULT) [address] [place] [address] 76248 CO2 [Moles/Vol] 25 mmol/L Normal 21-31 [facility] Comment on above: Performed By: #### L IPA, MGO, HFP, IPB, CA, C7ED #### [facility] (DEFAULT) [address] [place] [address] 98689 Creatinine [Mass/Vol] 0.61 mg/dL Low 0.70-1.30 [facility] Comment on above: Performed By: #### L IPA, MGO, HFP, IPB, CA, C7ED #### [facility] (DEFAULT) [address] [place] [address] 07904 eGFR, CKD-EPI, Male > Normal >=[address] [facility] Comment on above: Result Comment: Repo rted eGFR is based on the CKD-EPI 2020 equation using creatinine, age, and sex. Performed By: #### L IPA, MGO, HFP, IPB, CA, C7ED #### [facility] (DEFAULT) [address] [place] [address] 74879 Glucose [Mass/Vol] 135 mg/dL High 70-99 [facility] Comment on above: Performed By: #### L IPA, MGO, HFP, IPB, CA, C7ED #### [facility] (DEFAULT) [address] [place] [address] 90825 Osmolality [Osmolality] 292 mosm/kg Normal 278-[address] [facility] Comment on above: Performed By: #### L IPA, MGO, HFP, IPB, CA, C7ED #### [facility] (DEFAULT) [address] [place] [address] 75497 Potassium [Moles/Vol] 3.6 mmol/L Normal 3.5-5.0 [facility] Comment on above: Performed By: #### L IPA, MGO, HFP, IPB, CA, C7ED #### [facility] (DEFAULT) [address] [place] [address] 36179 Sodium [Moles/Vol] 139 mmol/L Normal 135-145 [facility] Comment on above: Performed By: #### L IPA, MGO, HFP, IPB, CA, C7ED #### [facility] (DEFAULT) [address] [place] [address] 14210 Urea nitrogen [Mass/Vol] 12 mg/dL Normal 7-[address] [facility] Comment on above: Performed By: #### L IPA, MGO, HFP, IPB, CA, C7ED #### [facility] (DEFAULT) [address] [place] [address] 35137 Urea nitrogen/Creatinine [Mass ratio] 20 mg/mg Normal [facility] Comment on above: Performed By: #### L IPA, MGO, HFP, IPB, CA, C7ED #### [facility] (DEFAULT) [address] [place] [address] 39141 GLUCOSE POCon 09-11-2023 Glucose [Mass/Vol] 172 mg/dL High 70 - 99 mg/dL [facility] Interpretation and review of laboratory results Abnormal [facility] POC Sample Type CAPBL [facility] Test performed at ad dress of the patient encounter. [facility] Glucose [Mass/Vol] 133 mg/dL High 70 - 99 mg/dL [facility] Interpretation and review of laboratory results Abnormal [facility] POC Sample Type CAPBL [facility] Test performed at ad dress of the patient encounter. [facility] MAGNESIUMon 09-11-2023 Magnesium [Mass/Vol] 1.9 mg/dL 1.6 - 2 .6 mg/dL [facility] Magnesium [Mass/Vol] 1.9 mg/dL Normal 1.6-2.[address] [facility] Comment on above: Performed By: #### L IPA, MGO, HFP, IPB, CA, C7ED #### [facility] (DEFAULT) [address] [place] [address] [phone] No Panel Informationon 09-10 Interpretation and review of laboratory results Normal [facility] PHOSPHATE, INORGANICon 09-10 Phosphate [Mass/Vol] 3.9 mg/dL 2.2 - 4 .6 mg/dL [facility] Phosphorous 3.9 mg/dL Normal 2.2-4.[address] [facility] Comment on above: Performed By: #### L IPA, MGO, HFP, IPB, CA, C7ED #### [facility] (DEFAULT) [address] [place] [address] 39136 CBC,PLATELETSon 09-10-2023 Erythrocyte distribution width (RBC) [Ratio] 13.6 % 10.9 - 14.3 % [facility] Hematocrit (Bld) [Volume fraction] 45.0 % 39.6 - 48.8 % [facility] Hemoglobin (Bld) [Mass/Vol] 14.7 g/dL 13.4 - 16.8 g/dL [facility] Interpretation and review of laboratory results Abnormal [facility] MCH (RBC) [Entitic mass] 26.8 pg 26.1 - 33.3 pg [facility] MCHC (RBC) [Mass/Vol] 32.7 g/dL 31.9 - 36.5 g/dL [facility] MCV (RBC) [Entitic vol] 82.1 fL 79.0 - 94.5 fL [facility] Platelet mean volume (Bld) [Entitic vol] 11.1 fL 8.7 - 12.3 fL [facility] Platelets (Bld) [#/Vol] 141 10*3/uL Low 146 - 337 K/uL [facility] RBC (Bld) [#/Vol] 5.48 10*6/uL [facility] WBC (Bld) [#/Vol] 7.72 10*3/uL 3.73 - 10.10 K/uL [facility] Hematocrit (Bld) [Volume fraction] 45.0 % Normal 39.6-48.[address] [facility] Comment on above: Performed By: #### [facility] #### [facility] (DEFAULT) [address] [address] Hemoglobin (Bld) [Mass/Vol] 14.7 g/dL Normal 13.4-16.[address] [facility] Comment on above: Performed By: #### [facility] #### [facility] (DEFAULT) [address] [address] MCV (RBC) [Entitic vol] 82.1 fL Normal 79.0-94.[address] [facility] Comment on above: Performed By: #### [facility] #### [facility] (DEFAULT) [address] [address] Mean Cell Hgb 26.8 pg Normal 26.1-33.[address] [facility] Comment on above: Performed By: #### H EMOGC #### [facility] (DEFAULT) [address] [address] Mean Cell Hgb Conc 32.7 g/dL Normal 31.9-36.5 [facility] Comment on above: Performed By: #### H EMOGC #### [facility] (DEFAULT) [address] [address] Platelet mean volume (Bld) [Entitic vol] 11.1 fL Normal 8.7-12.[address] [facility] Comment on above: Performed By: #### H EMOGC #### [facility] (DEFAULT) [address] [address] Platelets (Bld) [#/Vol] 141 10*3/uL Low 146-[address] [facility] Comment on above: Performed By: #### H EMOGC #### [facility] (DEFAULT) [address] [address] RBC (Bld) [#/Vol] 5.48 10*6/uL Normal 4.38-5.[address] [facility] Comment on above: Performed By: #### H EMOGC #### [facility] (DEFAULT) [address] [address] RBC Distribution 13.6 % Normal 10.9-14.3 [facility] Comment on above: Performed By: #### H EMOGC #### [facility] (DEFAULT) [address] [address] WBC (Bld) [#/Vol] 7.72 10*3/uL Normal 3.73-10.[address] [facility] Comment on above: Performed By: #### H EMOGC #### [facility] (DEFAULT) [address] [address] CHEM 7 (LYTES,BUN,CREA,GLUC) on 09-10-2023 Anion gap [Moles/Vol] 15 mmol/L 7 - 17 mmol/L [facility] Chloride [Moles/Vol] 104 mmol/L 98 - 10 8 mmol/L [facility] CO2 [Moles/Vol] 24 mmol/L 21 - 31 mmol/L [facility] Creatinine [Mass/Vol] 0.61 mg/dL Low 0.70 - 1.30 mg/dL [facility] eGFR, CKD-EPI, Male - PINF [facility] Comment on above: Reported eGFR is bas ed on the CKD-EPI 2020 equation using creatinine, age, and sex. Glucose [Mass/Vol] 126 mg/dL High 70 - 99 mg/dL [facility] Interpretation and review of laboratory results Abnormal [facility] Osmolality Calc [Osmolality] 292 [facility] Potassium [Moles/Vol] 4.1 mmol/L 3.5 - 5.0 mmol/L [facility] Comment on above: Specimen hemolyzed. Potassium results may be falsely elevated. Interpret within clinical context. Sodium [Moles/Vol] 139 mmol/L 135 - 145 mmol/L [facility] Urea nitrogen [Mass/Vol] 11 mg/dL 7 - 25 mg/dL [facility] Urea nitrogen/Creatinine [Mass ratio] 18 mg/mg [facility] Anion gap [Moles/Vol] 15 mmol/L Normal 7-17 [facility] Comment on above: Performed By: #### L IPA, MGO, HFP, IPB, CA, C7ED #### [facility] (DEFAULT) [address] [place] [address] 74406 Chloride [Moles/Vol] 104 mmol/L Normal 98-[address] [facility] Comment on above: Performed By: #### L IPA, MGO, HFP, IPB, CA, C7ED #### [facility] (DEFAULT) [address] [place] [address] CO2 [Moles/Vol] 24 mmol/L Normal 21-31 [facility] Comment on above: Performed By: #### L IPA, MGO, HFP, IPB, CA, C7ED #### [facility] (DEFAULT) [address] [place] [address] 02734 Creatinine [Mass/Vol] 0.61 mg/dL Low 0.70-1.30 [facility] Comment on above: Performed By: #### L IPA, MGO, HFP, IPB, CA, C7ED #### [facility] (DEFAULT) [address] [place] [address] 69150 eGFR, CKD-EPI, Male > Normal >=[address] [facility] Comment on above: Result Comment: Repo rted eGFR is based on the CKD-EPI 2020 equation using creatinine, age, and sex. Performed By: #### L IPA, MGO, HFP, IPB, CA, C7ED #### [facility] (DEFAULT) [address] [place] [address] 02522 Glucose [Mass/Vol] 126 mg/dL High 70-99 [facility] Comment on above: Performed By: #### L IPA, MGO, HFP, IPB, CA, C7ED #### [facility] (DEFAULT) [address] [place] [address] 84368 Osmolality [Osmolality] 292 mosm/kg Normal 278-[address] [facility] Comment on above: Performed By: #### L IPA, MGO, HFP, IPB, CA, C7ED #### [facility] (DEFAULT) [address] [place] [address] 18132 Potassium [Moles/Vol] 4.1 mmol/L Normal 3.5-5.0 [facility] Comment on above: Result Comment: Spec imen hemolyzed. Potassium results may be falsely elevated. Interpret within clinical context. Performed By: #### L IPA, MGO, HFP, IPB, CA, C7ED #### [facility] (DEFAULT) [address] [place] [address] 90839 Sodium [Moles/Vol] 139 mmol/L Normal 135-145 [facility] Comment on above: Performed By: #### L IPA, MGO, HFP, IPB, CA, C7ED #### [facility] (DEFAULT) [address] [place] [address] Urea nitrogen [Mass/Vol] 11 mg/dL Normal 7-[address] [facility] Comment on above: Performed By: #### L IPA, MGO, HFP, IPB, CA, C7ED #### [facility] (DEFAULT) [address] [place] [address] Urea nitrogen/Creatinine [Mass ratio] 18 mg/mg Normal [facility] Comment on above: Performed By: #### L IPA, MGO, HFP, IPB, CA, C7ED #### [facility] (DEFAULT) [address] [place] [address] 11726 GLUCOSE POCon 09-10-2023 Glucose [Mass/Vol] 138 mg/dL High 70 - 99 mg/dL [facility] Interpretation and review of laboratory results Abnormal [facility] POC Sample Type CAPBL [facility] Test performed at ad dress of the patient encounter. [facility] Glucose [Mass/Vol] 170 mg/dL High 70 - 99 mg/dL [facility] Glucose [Mass/Vol] 181 mg/dL High 70 - 99 mg/dL [facility] Glucose [Mass/Vol] 157 mg/dL High 70 - 99 mg/dL [facility] Interpretation and review of laboratory results Abnormal [facility] POC Sample Type CAPBL [facility] Test performed at ad dress of the patient encounter. [facility] LACTATE, BLOODOrdered By: Sa jeffrey Mitchell on 09-10-2023 Interpretation and review of laboratory results Normal [facility] Lactate [Moles/Vol] 1.5 mmol/L 0.5 - 1. 6 mmol/L [facility] LACTATE, BLOODon 09-10-2023 Lactate, Blood 1.5 mmol/L Normal 0.5-1.[address] [facility] Comment on above: Performed By: #### L ACT #### [facility] (DEFAULT) [address] [place] [address] 98688 MAGNESIUMon 09-10-2023 Magnesium [Mass/Vol] 2.0 mg/dL 1.6 - 2 .6 mg/dL [facility] Magnesium [Mass/Vol] 2.0 mg/dL Normal 1.6-2.[address] [facility] Comment on above: Performed By: #### L IPA, MGO, HFP, IPB, CA, C7ED #### [facility] (DEFAULT) [address] [place] [address] 71852 No Panel Informationon 09-09 Interpretation and review of laboratory results Abnormal [facility] POC Sample Type CAPBL [facility] Test performed at ad dress of the patient encounter. [facility] Interpretation and review of laboratory results Normal [facility] PHOSPHATE, INORGANICon 09-09 Phosphate [Mass/Vol] 4.2 mg/dL 2.2 - 4 .6 mg/dL [facility] Phosphorous 4.2 mg/dL Normal 2.2-4.[address] [facility] Comment on above: Performed By: #### L IPA, MGO, HFP, IPB, CA, C7ED #### [facility] (DEFAULT) [address] [place] [address] 01316 CBC,PLATELETSon 09-09-2023 Erythrocyte distribution width (RBC) [Ratio] 13.3 % 10.9 - 14.3 % [facility] Hematocrit (Bld) [Volume fraction] 48.4 % 39.6 - 48.8 % [facility] Hemoglobin (Bld) [Mass/Vol] 15.7 g/dL 13.4 - 16.8 g/dL [facility] Interpretation and review of laboratory results Abnormal [facility] MCH (RBC) [Entitic mass] 26.1 pg 26.1 - 33.3 pg [facility] MCHC (RBC) [Mass/Vol] 32.4 g/dL 31.9 - 36.5 g/dL [facility] MCV (RBC) [Entitic vol] 80.5 fL 79.0 - 94.5 fL [facility] Platelet mean volume (Bld) [Entitic vol] 11.1 fL 8.7 - 12.3 fL [facility] Platelets (Bld) [#/Vol] 156 10*3/uL 146 - 337 K/uL [facility] RBC (Bld) [#/Vol] 6.01 10*6/uL High [facility] WBC (Bld) [#/Vol] 7.36 10*3/uL 3.73 - 10.10 K/uL [facility] Hematocrit (Bld) [Volume fraction] 48.4 % Normal 39.6-48.[address] [facility] Comment on above: Performed By: #### L IPA, MGO, HFP, IPB, CA, C7ED #### [facility] (DEFAULT) [address] [place] [address] 57325 Hemoglobin (Bld) [Mass/Vol] 15.7 g/dL Normal 13.4-16.[address] [facility] Comment on above: Performed By: #### L IPA, MGO, HFP, IPB, CA, C7ED #### [facility] (DEFAULT) [address] [place] [address] 61654 MCV (RBC) [Entitic vol] 80.5 fL Normal 79.0-94.[address] [facility] Comment on above: Performed By: #### L IPA, MGO, HFP, IPB, CA, C7ED #### [facility] (DEFAULT) [address] [place] [address] 91183 Mean Cell Hgb 26.1 pg Normal 26.1-33.[address] [facility] Comment on above: Performed By: #### L IPA, MGO, HFP, IPB, CA, C7ED #### [facility] (DEFAULT) [address] [place] [address] 32879 Mean Cell Hgb Conc 32.4 g/dL Normal 31.9-36.5 [facility] Comment on above: Performed By: #### L IPA, MGO, HFP, IPB, CA, C7ED #### [facility] (DEFAULT) [address] [place] [address] 78566 Platelet mean volume (Bld) [Entitic vol] 11.1 fL Normal 8.7-12.[address] [facility] Comment on above: Performed By: #### L IPA, MGO, HFP, IPB, CA, C7ED #### [facility] (DEFAULT) [address] [place] [address] 94124 Platelets (Bld) [#/Vol] 156 10*3/uL Normal 146-[address] [facility] Comment on above: Performed By: #### L IPA, MGO, HFP, IPB, CA, C7ED #### [facility] (DEFAULT) [address] [place] [address] 99702 RBC (Bld) [#/Vol] 6.01 10*6/uL High 4.38-5.[address] [facility] Comment on above: Performed By: #### L IPA, MGO, HFP, IPB, CA, C7ED #### [facility] (DEFAULT) [address] [place] [address] 70347 RBC Distribution 13.3 % Normal 10.9-14.3 [facility] Comment on above: Performed By: #### L IPA, MGO, HFP, IPB, CA, C7ED #### [facility] (DEFAULT) [address] [place] [address] 68248 WBC (Bld) [#/Vol] 7.36 10*3/uL Normal 3.73-10.[address] [facility] Comment on above: Performed By: #### L IPA, MGO, HFP, IPB, CA, C7ED #### [facility] (DEFAULT) [address] [place] [address] 19719 CHEM 7 (LYTES,BUN,CREA,GLUC) on 09-09-2023 Anion gap [Moles/Vol] 16 mmol/L 7 - 17 mmol/L [facility] Chloride [Moles/Vol] 104 mmol/L 98 - 10 8 mmol/L [facility] CO2 [Moles/Vol] 22 mmol/L 21 - 31 mmol/L [facility] Creatinine [Mass/Vol] 0.51 mg/dL Low 0.70 - 1.30 mg/dL [facility] eGFR, CKD-EPI, Male - PINF [facility] Comment on above: Reported eGFR is bas ed on the CKD-EPI 2020 equation using creatinine, age, and sex. Glucose [Mass/Vol] 139 mg/dL High 70 - 99 mg/dL [facility] Interpretation and review of laboratory results Abnormal [facility] Osmolality Calc [Osmolality] 289 [facility] Potassium [Moles/Vol] 3.9 mmol/L 3.5 - 5.0 mmol/L [facility] Sodium [Moles/Vol] 138 mmol/L 135 - 145 mmol/L [facility] Urea nitrogen [Mass/Vol] 7 mg/dL 7 - 25 mg/dL [facility] Urea nitrogen/Creatinine [Mass ratio] 14 mg/mg [facility] Anion gap [Moles/Vol] 16 mmol/L Normal 7-17 [facility] Comment on above: Performed By: #### L IPA, MGO, HFP, IPB, CA, C7ED #### [facility] (DEFAULT) [address] [place] [address] 20307 Chloride [Moles/Vol] 104 mmol/L Normal 98-[address] [facility] Comment on above: Performed By: #### L IPA, MGO, HFP, IPB, CA, C7ED #### [facility] (DEFAULT) [address] [place] [address] CO2 [Moles/Vol] 22 mmol/L Normal 21-31 [facility] Comment on above: Performed By: #### L IPA, MGO, HFP, IPB, CA, C7ED #### [facility] (DEFAULT) [address] [place] [address] 78296 Creatinine [Mass/Vol] 0.51 mg/dL Low 0.70-1.30 [facility] Comment on above: Performed By: #### L IPA, MGO, HFP, IPB, CA, C7ED #### [facility] (DEFAULT) [address] [place] [address] 75335 eGFR, CKD-EPI, Male > Normal >=[address] [facility] Comment on above: Result Comment: Repo rted eGFR is based on the CKD-EPI 2020 equation using creatinine, age, and sex. Performed By: #### L IPA, MGO, HFP, IPB, CA, C7ED #### [facility] (DEFAULT) [address] [place] [address] 80959 Glucose [Mass/Vol] 139 mg/dL High 70-99 [facility] Comment on above: Performed By: #### L IPA, MGO, HFP, IPB, CA, C7ED #### [facility] (DEFAULT) [address] [place] [address] 58757 Osmolality [Osmolality] 289 mosm/kg Normal 278-[address] [facility] Comment on above: Performed By: #### L IPA, MGO, HFP, IPB, CA, C7ED #### [facility] (DEFAULT) [address] [place] [address] 69776 Potassium [Moles/Vol] 3.9 mmol/L Normal 3.5-5.0 [facility] Comment on above: Performed By: #### L IPA, MGO, HFP, IPB, CA, C7ED #### [facility] (DEFAULT) [address] [place] [address] 10571 Sodium [Moles/Vol] 138 mmol/L Normal 135-145 [facility] Comment on above: Performed By: #### L IPA, MGO, HFP, IPB, CA, C7ED #### [facility] (DEFAULT) [address] [place] [address] 97631 Urea nitrogen [Mass/Vol] 7 mg/dL Normal 7-[address] [facility] Comment on above: Performed By: #### L IPA, MGO, HFP, IPB, CA, C7ED #### [facility] (DEFAULT) [address] [place] [address] Urea nitrogen/Creatinine [Mass ratio] 14 mg/mg Normal [facility] Comment on above: Performed By: #### L IPA, MGO, HFP, IPB, CA, C7ED #### [facility] (DEFAULT) [address] [place] [address] GLUCOSE POCon 09-09-2023 Glucose [Mass/Vol] 161 mg/dL High 70 - 99 mg/dL [facility] Interpretation and review of laboratory results Abnormal [facility] POC Sample Type CAPBL [facility] Test performed at ad dress of the patient encounter. [facility] Glucose [Mass/Vol] 183 mg/dL High 70 - 99 mg/dL [facility] Interpretation and review of laboratory results Abnormal [facility] POC Sample Type CAPBL [facility] Test performed at ad dress of the patient encounter. [facility] Glucose [Mass/Vol] 179 mg/dL High 70 - 99 mg/dL [facility] Glucose [Mass/Vol] 220 mg/dL High 70 - 99 mg/dL [facility] Glucose [Mass/Vol] 178 mg/dL High 70 - 99 mg/dL [facility] Interpretation and review of laboratory results Abnormal [facility] POC Sample Type [facility] Test performed at ad dress of the patient encounter. [facility] Glucose [Mass/Vol] 157 mg/dL High 70 - 99 mg/dL [facility] Interpretation and review of laboratory results Abnormal [facility] POC Sample Type CAPBL [facility] Test performed at ad dress of the patient encounter. [facility] LACTATE, BLOODOrdered By: Sa red Bai on 09-09-2023 Interpretation and review of laboratory results Normal [facility] Lactate [Moles/Vol] 1.5 mmol/L 0.5 - 1. 6 mmol/L [facility] LACTATE, BLOODon 09-09-2023 Lactate, Blood 1.5 mmol/L Normal 0.5-1.[address] [facility] Comment on above: Performed By: #### L IPA, MGO, HFP, IPB, CA, C7ED #### [facility] (DEFAULT) [address] [address] MAGNESIUMon 09-09-2023 Magnesium [Mass/Vol] 1.8 mg/dL 1.6 - 2 .6 mg/dL [facility] Magnesium [Mass/Vol] 1.8 mg/dL Normal 1.6-2.[address] [facility] Comment on above: Performed By: #### L IPA, MGO, HFP, IPB, CA, C7ED #### [facility] (DEFAULT) [address] [address] No Panel Informationon 09-08 Interpretation and review of laboratory results Abnormal [facility] POC Sample Type CAPBL [facility] Test performed at ad dress of the patient encounter. [facility] Interpretation and review of laboratory results Normal [facility] PHOSPHATE, INORGANICon 09-08 Phosphate [Mass/Vol] 3.0 mg/dL 2.2 - 4 .6 mg/dL [facility] Phosphorous 3.0 mg/dL Normal 2.2-4.[address] [facility] Comment on above: Performed By: #### L IPA, MGO, HFP, IPB, CA, C7ED #### [facility] (DEFAULT) [address] [place] [address] 40875 CALCIUMon 09-08-2023 Calcium [Mass/Vol] 8.9 mg/dL 8.6 - 10. 5 mg/dL [facility] Calcium [Mass/Vol] 8.9 mg/dL Normal 8.6-10.5 [facility] Comment on above: Performed By: #### L IPA, MGO, HFP, IPB, CA, C7ED #### [facility] (DEFAULT) [address] [place] [address] 77186 CBC AND ELECTRONIC DIFFon Basophils (Bld) [#/Vol] 0.06 10*3/uL 0.00 - 0.09 K/uL [facility] Basophils/100 WBC (Bld) 0.6 % [facility] Differential cell count method Nom (Bld) Electronic Differential [facility] Eosinophils (Bld) [#/Vol] 0.21 10*3/uL 0.00 - 0.48 K/uL [facility] Eosinophils/100 WBC (Bld) 2.2 % [facility] Erythrocyte distribution width (RBC) [Ratio] 13.2 % 10.9 - 14.3 % [facility] Hematocrit (Bld) [Volume fraction] 45.8 % 39.6 - 48.8 % [facility] Hemoglobin (Bld) [Mass/Vol] 15.5 g/dL 13.4 - 16.8 g/dL [facility] Immature granulocytes (Bld) [#/Vol] K/uL NINF - 0.07 K/uL [facility] Immature granulocytes/100 WBC (Bld) 0.2 % [facility] Interpretation and review of laboratory results Abnormal [facility] Lymphocytes (Bld) [#/Vol] 2.30 10*3/uL 0.83 - 3.57 K/uL [facility] Lymphocytes/100 WBC (Bld) 24.5 % [facility] MCH (RBC) [Entitic mass] 26.8 pg 26.1 - 33.3 pg [facility] MCHC (RBC) [Mass/Vol] 33.8 g/dL 31.9 - 36.5 g/dL [facility] MCV (RBC) [Entitic vol] 79.2 fL 79.0 - 94.5 fL [facility] Monocytes (Bld) [#/Vol] 0.52 10*3/uL 0.24 - 0.93 K/uL [facility] Monocytes/100 WBC (Bld) 5.5 % [facility] Neutrophils (Bld) [#/Vol] 6.26 10*3/uL High 1.57 - 6.19 K/uL [facility] Nucleated RBC/100 WBC (Bld) [Ratio] 0.0 % NINF [facility] Platelet mean volume (Bld) [Entitic vol] 11.5 fL 8.7 - 12.3 fL [facility] Platelets (Bld) [#/Vol] 166 10*3/uL 146 - 337 K/uL [facility] RBC (Bld) [#/Vol] 5.78 10*6/uL [facility] Segmented neutrophils/100 WBC (Bld) 67.0 % [facility] WBC (Bld) [#/Vol] 9.37 10*3/uL 3.73 - 10.10 K/uL [facility] Basophils (Bld) [#/Vol] 0.06 10*3/uL Normal 0.00-0.[address] [facility] Comment on above: Performed By: #### L IPA, MGO, HFP, IPB, CA, C7ED #### [facility] (DEFAULT) [address] [place] [address] 91366 Basophils/100 WBC (Bld) 0.6 % Normal [facility] Comment on above: Performed By: #### L IPA, MGO, HFP, IPB, CA, C7ED #### [facility] (DEFAULT) [address] [place] [address] 73755 DIFF STATUS Electronic Differential Normal [facility] Comment on above: Performed By: #### L IPA, MGO, HFP, IPB, CA, C7ED #### [facility] (DEFAULT) [address] [place] [address] 83585 Eosinophils (Bld) [#/Vol] 0.21 10*3/uL Normal 0.00-0.[address] [facility] Comment on above: Performed By: #### L IPA, MGO, HFP, IPB, CA, C7ED #### [facility] (DEFAULT) [address] [place] [address] 14186 Eosinophils/100 WBC (Bld) 2.2 % Normal [facility] Comment on above: Performed By: #### L IPA, MGO, HFP, IPB, CA, C7ED #### [facility] (DEFAULT) [address] [place] [address] 51830 Hematocrit (Bld) [Volume fraction] 45.8 % Normal 39.6-48.[address] [facility] Comment on above: Performed By: #### L IPA, MGO, HFP, IPB, CA, C7ED #### [facility] (DEFAULT) [address] [place] [address] 87703 Hemoglobin (Bld) [Mass/Vol] 15.5 g/dL Normal 13.4-16.[address] [facility] Comment on above: Performed By: #### L IPA, MGO, HFP, IPB, CA, C7ED #### [facility] (DEFAULT) [address] [place] [address] 42363 Immature Grans % 0.2 % Normal [facility] Comment on above: Performed By: #### L IPA, MGO, HFP, IPB, CA, C7ED #### [facility] (DEFAULT) [address] [place] [address] 85080 Immature Grans Absolute < Normal <=0.[address] [facility] Comment on above: Performed By: #### L IPA, MGO, HFP, IPB, CA, C7ED #### [facility] (DEFAULT) [address] [place] [address] 88938 Lymphocytes (Bld) [#/Vol] 2.30 10*3/uL Normal 0.83-3.[address] [facility] Comment on above: Performed By: #### L IPA, MGO, HFP, IPB, CA, C7ED #### [facility] (DEFAULT) [address] [place] [address] 89915 Lymphocytes/100 WBC (Bld) 24.5 % Normal [facility] Comment on above: Performed By: #### L IPA, MGO, HFP, IPB, CA, C7ED #### [facility] (DEFAULT) [address] [place] [address] 08163 MCV (RBC) [Entitic vol] 79.2 fL Normal 79.0-94.[address] [facility] Comment on above: Performed By: #### L IPA, MGO, HFP, IPB, CA, C7ED #### [facility] (DEFAULT) [address] [place] [address] 89982 Mean Cell Hgb 26.8 pg Normal 26.1-33.[address] [facility] Comment on above: Performed By: #### L IPA, MGO, HFP, IPB, CA, C7ED #### [facility] (DEFAULT) [address] [place] [address] 58590 Mean Cell Hgb Conc 33.8 g/dL Normal 31.9-36.5 [facility] Comment on above: Performed By: #### L IPA, MGO, HFP, IPB, CA, C7ED #### [facility] (DEFAULT) [address] [place] [address] 82174 Monocytes (Bld) [#/Vol] 0.52 10*3/uL Normal 0.24-0.[address] [facility] Comment on above: Performed By: #### L IPA, MGO, HFP, IPB, CA, C7ED #### [facility] (DEFAULT) [address] [place] [address] 84613 Monocytes/100 WBC (Bld) 5.5 % Normal [facility] Comment on above: Performed By: #### L IPA, MGO, HFP, IPB, CA, C7ED #### [facility] (DEFAULT) [address] [place] [address] 17970 Nucleated RBC 0.0 /100 WBC Normal <=0.2 [facility] Comment on above: Performed By: #### L IPA, MGO, HFP, IPB, CA, C7ED #### [facility] (DEFAULT) [address] [place] [address] 09511 Platelet mean volume (Bld) [Entitic vol] 11.5 fL Normal 8.7-12.[address] [facility] Comment on above: Performed By: #### L IPA, MGO, HFP, IPB, CA, C7ED #### [facility] (DEFAULT) [address] [place] [address] 01038 Platelets (Bld) [#/Vol] 166 10*3/uL Normal 146-[address] [facility] Comment on above: Performed By: #### L IPA, MGO, HFP, IPB, CA, C7ED #### [facility] (DEFAULT) [address] [place] [address] 34770 RBC (Bld) [#/Vol] 5.78 10*6/uL Normal 4.38-5.[address] [facility] Comment on above: Performed By: #### L IPA, MGO, HFP, IPB, CA, C7ED #### [facility] (DEFAULT) [address] [place] [address] 12401 RBC Distribution 13.2 % Normal 10.9-14.3 [facility] Comment on above: Performed By: #### L IPA, MGO, HFP, IPB, CA, C7ED #### [facility] (DEFAULT) [address] [place] [address] 58487 Segs + Bands Auto 67.0 % Normal [facility] Comment on above: Performed By: #### L IPA, MGO, HFP, IPB, CA, C7ED #### [facility] (DEFAULT) [address] [place] [address] 58535 Segs + Bands,Absolute Auto 6.26 K/uL High 1.57-6.19 [facility] Comment on above: Performed By: #### L IPA, MGO, HFP, IPB, CA, C7ED #### [facility] (DEFAULT) [address] [place] [address] WBC (Bld) [#/Vol] 9.37 10*3/uL Normal 3.73-10.[address] [facility] Comment on above: Performed By: #### L IPA, MGO, HFP, IPB, CA, C7ED #### [facility] (DEFAULT) [address] [place] [address] CHM 7 - EDon 09-08-2023 Anion gap [Moles/Vol] 14 mmol/L 7 - 17 mmol/L [facility] Chloride [Moles/Vol] 102 mmol/L 98 - 10 8 mmol/L [facility] CO2 [Moles/Vol] 23 mmol/L 21 - 31 mmol/L [facility] Creatinine [Mass/Vol] 0.51 mg/dL Low 0.70 - 1.30 mg/dL [facility] eGFR, CKD-EPI, Male - PINF [facility] Comment on above: Reported eGFR is bas ed on the CKD-EPI 2020 equation using creatinine, age, and sex. Glucose [Mass/Vol] 215 mg/dL High 70 - 99 mg/dL [facility] Osmolality Calc [Osmolality] 289 [facility] Potassium [Moles/Vol] 4.0 mmol/L 3.5 - 5.0 mmol/L [facility] Sodium [Moles/Vol] 135 mmol/L 135 - 145 mmol/L [facility] Urea nitrogen [Mass/Vol] 9 mg/dL 7 - 25 mg/dL [facility] Urea nitrogen/Creatinine [Mass ratio] 18 mg/mg [facility] Anion gap [Moles/Vol] 14 mmol/L Normal 7-17 [facility] Comment on above: Performed By: #### L IPA, MGO, HFP, IPB, CA, C7ED #### [facility] (DEFAULT) [address] [place] [address] Chloride [Moles/Vol] 102 mmol/L Normal 98-[address] [facility] Comment on above: Performed By: #### L IPA, MGO, HFP, IPB, CA, C7ED #### [facility] (DEFAULT) [address] [place] [address] 13232 CO2 [Moles/Vol] 23 mmol/L Normal 21-31 [facility] Comment on above: Performed By: #### L IPA, MGO, HFP, IPB, CA, C7ED #### [facility] (DEFAULT) [address] [place] [address] 85941 Creatinine [Mass/Vol] 0.51 mg/dL Low 0.70-1.30 [facility] Comment on above: Performed By: #### L IPA, MGO, HFP, IPB, CA, C7ED #### [facility] (DEFAULT) [address] [place] [address] 40304 eGFR, CKD-EPI, Male > Normal >=[address] [facility] Comment on above: Result Comment: Repo rted eGFR is based on the CKD-EPI 2020 equation using creatinine, age, and sex. Performed By: #### L IPA, MGO, HFP, IPB, CA, C7ED #### [facility] (DEFAULT) [address] [place] [address] 96070 Glucose [Mass/Vol] 215 mg/dL High 70-99 [facility] Comment on above: Performed By: #### L IPA, MGO, HFP, IPB, CA, C7ED #### [facility] (DEFAULT) [address] [place] [address] 11628 Osmolality [Osmolality] 289 mosm/kg Normal 278-[address] [facility] Comment on above: Performed By: #### L IPA, MGO, HFP, IPB, CA, C7ED #### [facility] (DEFAULT) [address] [place] [address] 53823 Potassium [Moles/Vol] 4.0 mmol/L Normal 3.5-5.0 [facility] Comment on above: Performed By: #### L IPA, MGO, HFP, IPB, CA, C7ED #### [facility] (DEFAULT) [address] [place] [address] 42344 Sodium [Moles/Vol] 135 mmol/L Normal 135-145 [facility] Comment on above: Performed By: #### L IPA, MGO, HFP, IPB, CA, C7ED #### [facility] (DEFAULT) [address] [place] [address] 86718 Urea nitrogen [Mass/Vol] 9 mg/dL Normal 7-[address] [facility] Comment on above: Performed By: #### L IPA, MGO, HFP, IPB, CA, C7ED #### [facility] (DEFAULT) [address] [place] [address] 56807 Urea nitrogen/Creatinine [Mass ratio] 18 mg/mg Normal [facility] Comment on above: Performed By: #### L IPA, MGO, HFP, IPB, CA, C7ED #### [facility] (DEFAULT) [address] [place] [address] 14364 Cardiac echo study Procedure Ordered By: Alessandro Florez on 09-08-2023 Ao ASC index 1.39 cm/m2 [facility] Work Phone: Ao peak vesta 1.44 m/s [facility] Work Phone: Ao VTI 29.70 cm [facility] Work Phone: Ascending aorta 3.40 [facility] Work Phone: AV LVOT peak gradient 3 mmHg [facility] Work Phone: AV mean gradient 4 mmHg [facility] Work Phone: AV peak gradient 8 mmHG [facility] Work Phone: AV valve area 2.92 cm2 [facility] Work Phone: AV Velocity Ratio 0.65 [facility] Work Phone: WOODROW (continuity Vmax) 2.68 cm2 [facility] Work Phone: WOODROW (continuity VTI) 2.92 cm2 [facility] Work Phone: WOODROW index (continuity Vmax) 1.09 m/s [facility] Work Phone: WOODROW index (continuity VTI) 1.19 cm2/m2 [facility] Work Phone: Avg e' pk vesta 0.06 m/s [facility] Work Phone: Avg E/e' ratio 14.75 [facility] Work Phone: Body surface area Derived from formula 2.45 m2 [facility] Work Phone: BP EF 67 % [facility] Work Phone: DI (Vmax) 0.65 [facility] Work Phone: DI (VTI) 0.70 m/2 [facility] Work Phone: E wave decelartion time 264.00 msec [facility] Work Phone: e' lateral pk vesta 0.0664 m/s [facility] Work Phone: e' lateral pk vesta 0.07 m/s [facility] Work Phone: e' septal pk vesta 0.0468 m/s [facility]: e' septal pk vesta 0.05 m/s [facility] Work Phone: E/A ratio 0.90 [facility] Work Phone: E/e' lateral ratio 12.20 [facility] Work Phone: E/e' septal ratio 17.31 [facility] Work Phone: EF SP 2CH 64 [facility] Work Phone: EF SP 4CH 70 [facility] Work Phone: FS 27 % Abnormal 28 - 44 % [facility] Work Phone: Interpretation and review of laboratory results Abnormal [facility] Work Phone: IVS 1.52 cm [facility] Work Phone: LA ESV BP (MOD) 69 mL [facility] Work Phone: LA ESV BP (MOD) index 28 mL/m2 [facility] Work Phone: LA ESV SP 2CH (MOD) 92 mL [facility] Work Phone: LA ESV SP 4CH (MOD) 52 mL [facility] Work Phone: LA size 4.40 cm [facility] Work Phone: LEFT ATRIAL DIAMETER INDEX 1.80 cm/m2 [facility] Work Phone: LV EDV BP 138 mL [facility] Work Phone: LV EDV SP 2CH 98 mL [facility] Work Phone: LV EDV SP 4CH 183 mL [facility] Work Phone: LV ESV BP 46 mL [facility] Work Phone: [phone] LV ESV SP 2CH 35 mL [facility] Work Phone: [phone] LV ESV SP 4CH 55 mL [facility] Work Phone: [phone] LV mass 408.59 g [facility] Work Phone: LV Mass Index 166.8 g/m2 [facility] Work Phone: LV RWT 0.53 [facility] Work Phone: LV stroke volume BP (ml) 92 mL [facility] Work Phone: LV stroke volume index BP 37.55 mL/m2 [facility] Work Phone: LVIDD 5.76 cm [facility] Work Phone: [phone] LVIDS 4.21 cm [facility] Work Phone: LVOT area 4.15 cm2 [facility] Work Phone: LVOT diameter 2.30 cm [facility] Work Phone: LVOT peak vesta 0.93 m/s [facility] Work Phone: LVOT peak VTI 20.90 cm [facility] Work Phone: LVOT stroke volume 87 cm3 [facility] Work Phone: LVOT stroke volume index 35.42 ml/m2 [facility] Work Phone: MV pk A vesta 0.90 m/s [facility] Work Phone: MV pk E vesta 0.81 m/s [facility] Work Phone: O[facility] AV VTI RATIO PRE STRESS 0.70 [facility] Work Phone: OSU ECHO LV BIPLANE SYSTOLIC VOLUME INDEX 18.78 mL/m2 [facility] Work Phone: OSU ECHO LV BP DIASTOLIC VOLUME INDEX 56.33 mL/m2 [facility] Work Phone: PV mean gradient 3 [facility]: PV peak gradient 5 [facility] Work Phone: PV PK VESTA 1.10 m/s [facility] Work Phone: PV VTI 23.90 cm [facility] Work Phone: PW 1.52 cm [facility] Work Phone: RA vol index 4CH (MOD) 13.88 mL/m2 [facility] Work Phone: Right atrium volume 4 chamber method of disks 34 mL [facility] Work Phone: RV basal diam 4.58 cm [facility] Work Phone: RV long diam 6.74 cm [facility] Work Phone: RV mid diam 3.80 cm [facility] Work Phone: RV S' 13.20 cm/s [facility] Work Phone: Stroke Volume 87 cm/mL [facility] Work Phone: Stroke volume index 35 [facility] Work Phone: TAPSE 2.29 cm [facility] Work Phone: [facility] Work Phone: Cardiac echo study Procedure on 09-08-2023 No prior study at is institution for comparison. Left Ventricle: Chamber size is normal. Increased wall thickness. Concentric hypertrophy. Normal global systolic function. Regional wall motion is normal. Ejection fraction is normal (65 - 70%). Diastolic function could not be determined. Right Ventricle: Chamber size is enlarged. Systolic function is normal. Septum: The atrial septum is normal, no evidence of [id number] shunt by saline contrast. No hemodynamically signifcant valvular disease. Pulmonary artery systolic pressure (PASP) is unable to be estimated. Poor tricuspid regurgitation jet may not accurately reflect right ventricular systolic pressure. No pericardial effusion. Left Ventricle Chamber size is normal. Increased wall thickness. Concentric hypertrophy. Normal global systolic function. Regional wall motion is normal. Ejection fraction is normal (65 - 70%). Diastolic function could not be determined. Right Ventricle Chamber size is enlarged. Systolic function is normal. Left Atrium Chamber size is normal. Right Atrium Chamber size is normal. IVC/SVC Unable to assess inferior vena cava and inferior vena cava not well visualized. Mitral Valve Normal appearing leaflets. Leaflet mobility is normal. No regurgitation. No valve stenosis. Tricuspid Valve Normal leaflets. Leaflet mobility is normal. Trace regurgitation. No stenosis. Pulmonary artery systolic pressure (PASP) is unable to be estimated. Poor tricuspid regurgitation jet may not accurately reflect right ventricular systolic pressure. Aortic Valve Trileaflet valve. Leaflet mobility is normal. No regurgitation. No stenosis. Mean gradient: 4 mmHg. Valve area continuity VTI: 2.92 cm2. The valve Vmax is 1.44 m/s. Pulmonic Valve Pulmonic valve not well visualized. No regurgitation. No stenosis. Pericardium Appears normal. No pericardial effusion. Septum The atrial septum is normal. No evidence of patent foramen ovale determined by color flow and saline contrast. Aorta No dilation to extent seen. Ascendin.40 cm. Study Details A complete echocardiography study (including color flow Doppler, spectral Doppler, M-mode and agitated saline contrast) was performed. Overall study quality was fair. Imaging system used: [employer]. Indications Indications for study: stroke/tia. [facility] Radiology Study observation (narrative) [facility] ECHOCARDIOGRAMon 09-08-2023 Echocardiography ? No prior study at this institution for comparison. ? Left Ventricle: Chamber size is normal. Increased wall thickness. Concentric hypertrophy. Normal global systolic function. Regional wall motion is normal. Ejection fraction is normal (65 - 70%). Diastolic function could not be determined. ? Right Ventricle: Chamber size is enlarged. Systolic function is normal. ? Septum: The atrial septum is normal, no evidence of [id number] shunt by saline contrast. ? No hemodynamically signifcant valvular disease. ? Pulmonary artery systolic pressure (PASP) is unable to be estimated. Poor tricuspid regurgitation jet may not accurately reflect right ventricular systolic pressure. ? No pericardial effusion. Table formatting from the original result was not included. Images from the original result were not included. Facility [facility] Patient Information Patient Name Maxwell Sandhu Legal Sex Male Indication for Exam Priority: STAT Dx: Cerebrovascular accident (CVA), unspecified mechanism [I63.9 (ICD-10-CM)] Order Question Reason for Exam stroke workup Interpretation Summary ? No prior study at this institution for comparison. ? Left Ventricle: Chamber size is normal. Increased wall thickness. Concentric hypertrophy. Normal global systolic function. Regional wall motion is normal. Ejection fraction is normal (65 - 70%). Diastolic function could not be determined. ? Right Ventricle: Chamber size is enlarged. Systolic function is normal. ? Septum: The atrial septum is normal, no evidence of [id number] shunt by saline contrast. ? No hemodynamically signifcant valvular disease. ? Pulmonary artery systolic pressure (PASP) is unable to be estimated. Poor tricuspid regurgitation jet may not accurately reflect right ventricular systolic pressure. ? No pericardial effusion. Findings Left Ventricle Chamber size is normal. Increased wall thickness. Concentric hypertrophy. Normal global systolic function. Regional wall motion is normal. Ejection fraction is normal (65 - 70%). Diastolic function could not be determined. Right Ventricle Chamber size is enlarged. Systolic function is normal. Left Atrium Chamber size is normal. Right Atrium Chamber size is normal. Septum The atrial septum is normal. No evidence of patent foramen ovale determined by color flow and saline contrast. Mitral Valve Normal appearing leaflets. Leaflet mobility is normal. No regurgitation. No valve stenosis. Aortic Valve Trileaflet valve. Leaflet mobility is normal. No regurgitation. No stenosis. Mean gradient: 4 mmHg. Valve area continuity VTI: 2.92 cm2. The valve Vmax is 1.44 m/s. Tricuspid Valve Normal leaflets. Leaflet mobility is normal. Trace regurgitation. No stenosis. Pulmonary artery systolic pressure (PASP) is unable to be estimated. Poor tricuspid regurgitation jet may not accurately reflect right ventricular systolic pressure. Pulmonic Valve Pulmonic valve not well visualized. No regurgitation. No stenosis. Aorta No dilation to extent seen. Ascendin.40 cm. Pericardium Appears normal. No pericardial effusion. IVC/SVC Unable to assess inferior vena cava and inferior vena cava not well visualized. Reading Providers Reading Role Read Date Alessandro Florez MD, PhD [facility] [place], Test Track Leader 09/08/2023 Left Heart Measurements LV - Systole LVIDD 5.76 cm IVS 1.52 cm LVIDS 4.21 cm PW 1.52 cm LV RWT 0.53 LV Mass Index 166.8 g/m2 LV EDV BP 138 mL LV ESV BP 46 mL BP EF 67 % LV stroke volume BP (ml) 92 mL LV stroke volume index BP 37.55 mL/m2 LV - Diastole MV pk E vesta 0.81 m/s MV pk A vesta 0.9 m/s E/A ratio 0.9 e' septal pk vesta 0.05 m/s e' lateral pk vesta 0.07 m/s Avg e' pk vesta 0.06 m/s E/e' septal ratio 17.31 E/e' lateral ratio 12.2 Avg E/e' ratio 14.75 LV - HCM AV LVOT peak gradient 3 mmHg Left Atrium LA size 4.4 cm LA ESV SP 4CH (MOD) 52 mL LA ESV SP 2CH (MOD) 92 mL LA ESV BP (MOD) index 28 mL/m2 Right Heart Measurements RV - 2D RV basal diam 4.58 cm RV mid diam 3.8 cm RV long diam 6.74 cm RV - Doppler TAPSE 2.29 cm RV S' 13.2 cm/s Right Atrium RA vol index 4CH (MOD) 13.88 mL/m2 Great Vessels Aortic Root - End Diastolic Ascending aorta 3.4 cm Doppler Measurements - Aortic Valve Stenosis LVOT diameter 2.3 cm LVOT area 4.15 cm2 LVOT peak vesta 0.93 m/s LVOT peak VTI 20.9 cm Stroke Volume 87 cm/mL Stroke volume index 35 Ao peak vesta 1.44 m/s Ao VTI 29.7 cm AV peak gradient 8 mmHG AV mean gradient 4 mmHg DI (VTI) 0.7 m/2 DI (Vmax) 0.65 [place] (continuity Vmax) 2.68 cm2 [place] index (continuity Vmax) 1.09 m/s [place] (continuity VTI) 2.92 cm2 [place] index (continuity VTI) 1.19 cm2/m2 LVOT stroke volume 8 (more content not included)... Abnormal [facility] GLUCOSE POCon 09-08-2023 Glucose [Mass/Vol] 197 mg/dL High 70 - 99 mg/dL [facility] Interpretation and review of laboratory results Abnormal [facility] POC Sample Type [facility] Test performed at ad dress of the patient encounter. [facility] Glucose [Mass/Vol] 216 mg/dL High 70 - 99 mg/dL [facility] Interpretation and review of laboratory results Abnormal [facility] POC Sample Type CAPBL [facility] Test performed at ad dress of the patient encounter. [facility] HEMOGLOBIN A1Con 09-08-2023 Average glucose Estimated from glycated hemoglobin (Bld) [Mass/Vol] 260 mg/dL [facility] HbA1c (Bld) [Mass fraction] 10.7 % High 4.7 - 5.6 % [facility] Interpretation and review of laboratory results Abnormal [facility] Average glucose Estimated from glycated hemoglobin (Bld) [Mass/Vol] 260 mg/dL [facility] HbA1c (Bld) [Mass fraction] 10.7 % High 4.7 - 5.6 % [facility] Interpretation and review of laboratory results Abnormal [facility] Glucose [Mass/Vol] 260 mg/dL Normal [facility] Comment on above: Performed By: #### L IPA, MGO, HFP, IPB, CA, C7ED #### [facility] (DEFAULT) [address] [place] [id number] Hemoglobin A1C HPLC 10.7 % High 4.7-5.[address] [facility] Comment on above: Performed By: #### L IPA, MGO, HFP, IPB, CA, C7ED #### [facility] (DEFAULT) [address] [place] [phone] Glucose [Mass/Vol] 260 mg/dL Normal [facility] Comment on above: Performed By: #### L IPA, MGO, HFP, IPB, CA, C7ED #### [facility] (DEFAULT) [address] [place] [address]86 Hemoglobin A1C HPLC 10.7 % High 4.7-5.[address] [facility] Comment on above: Performed By: #### L IPA, MGO, HFP, IPB, CA, C7ED #### [facility] (DEFAULT) [address] [place] [address] HEPATIC FUNCTION PANELon Albumin [Mass/Vol] 3.5 g/dL 3.5 - 5.0 g/dL [facility] ALP [Catalytic activity/Vol] 59 U/L 32 - 126 U/L [facility] ALT [Catalytic activity/Vol] 9 U/L Low 10 - 52 U/L [facility] AST [Catalytic activity/Vol] 15 U/L 10 - 39 U/L [facility] Bilirubin [Mass/Vol] 0.7 mg/dL NINF - 1.5 mg/dL [facility] Bilirubin.direct [Mass/Vol] 0.1 mg/dL NINF - 0.3 mg/dL [facility] Protein [Mass/Vol] 6.9 g/dL 6.4 - 8.3 g/dL [facility] Albumin [Mass/Vol] 3.5 g/dL Normal 3.5-5.0 [facility] Comment on above: Performed By: #### L IPA, MGO, HFP, IPB, CA, C7ED #### [facility] (DEFAULT) [address] [place] [address] ALP [Catalytic activity/Vol] 59 U/L Normal 32-[address] [facility] Comment on above: Performed By: #### L IPA, MGO, HFP, IPB, CA, C7ED #### [facility] (DEFAULT) [address] [place] [address]308 ALT [Catalytic activity/Vol] 9 U/L Low 10-[address] [facility] Comment on above: Performed By: #### L IPA, MGO, HFP, IPB, CA, C7ED #### [facility] (DEFAULT) [address] [place] [address]1232 AST [Catalytic activity/Vol] 15 U/L Normal 10-[address] [facility] Comment on above: Performed By: #### L IPA, MGO, HFP, IPB, CA, C7ED #### [facility] (DEFAULT) [address] [place] [address] 05866 Bilirubin [Mass/Vol] 0.7 mg/dL Normal <1.[address] [facility] Comment on above: Performed By: #### L IPA, MGO, HFP, IPB, CA, C7ED #### [facility] (DEFAULT) [address] [place] [address]46 Bilirubin.indirect [Mass/Vol] 0.1 mg/dL Normal <0.[address] [facility] Comment on above: Performed By: #### L IPA, MGO, HFP, IPB, CA, C7ED #### [facility] (DEFAULT) [address] [place] [address]10 Protein [Mass/Vol] 6.9 g/dL Normal 6.4-8.3 [facility] Comment on above: Performed By: #### L IPA, MGO, HFP, IPB, CA, C7ED #### [facility] (DEFAULT) [address] [place] [address]99 HIGH SENSITIVITY TROPONIN I - SINGLE ORDERon 08-02-2024 Interpretation and review of laboratory results Normal [facility] Troponin I.cardiac High sensitivity method [Mass/Vol] 11 ng/L NINF - 53 ng/L [facility] hs-Troponin I 11 ng/L Normal <[address] [facility] Comment on above: Order Comment: Acute Coronary Syndrome (ACS): Initial Evaluation and Management:[email or web address] Performed By: #### L IPA, MGO, HFP, IPB, CA, C7ED #### [facility] (DEFAULT) [address] [place] [address]99 LACTATE, BLOODOrdered By: Ben Garner on 09-08-2023 Interpretation and review of laboratory results Abnormal [facility] Lactate [Moles/Vol] 3.1 mmol/L High 0.5 - 1. 6 mmol/L [facility] Comment on above: Lactate results >/= 2.0 mmol/L should be followed up with a measurement 4 hours later for patients with suspicion of sepsis. [facility] LACTATE, BLOODon 09-08-2023 Lactate, Blood 3.1 mmol/L High 0.5-1.[address] [facility] Comment on above: Result Comment: Lact ate results >/= 2.0 mmol/L should be followed up with a measurement 4 hours later for patients with suspicion of sepsis. Performed By: #### L ACT #### [facility] (DEFAULT) [address] [place] [address] Lactate, Blood 2.5 mmol/L High 0.5-1.[address] [facility] Comment on above: Result Comment: Lact ate results >/= 2.0 mmol/L should be followed up with a measurement 4 hours later for patients with suspicion of sepsis. Performed By: #### L IPA, MGO, HFP, IPB, CA, C7ED #### [facility] (DEFAULT) [address] [place] [address] LACTATE, BLOODOrdered By: Dalia Palacio on 09-08-2023 Interpretation and review of laboratory results Abnormal [facility] Lactate [Moles/Vol] 2.5 mmol/L High 0.5 - 1. 6 mmol/L [facility] Comment on above: Lactate results >/= 2.0 mmol/L should be followed up with a measurement 4 hours later for patients with suspicion of sepsis. [facility] LIPASEon 09-08-2023 Lipase [Catalytic activity/Vol] 12 U/L U/L [facility] Lipase [Catalytic activity/Vol] 12 U/L Normal [facility] Comment on above: Performed By: #### L IPA, MGO, HFP, IPB, CA, C7ED #### [facility] (DEFAULT) [address] [place] [address] LIPID PANEL W CALCULATED LDL on 09-08-2023 Cholesterol [Mass/Vol] 146 mg/dL NINF - 200 mg/dL [facility] Comment on above: [<200 mg/dL: Desirab le] [200-239 mg/dL: Borderline High] [>239 mg/dL: High] Cholesterol in HDL [Mass/Vol] 43 mg/dL 40 - PINF mg/dL [facility] Comment on above: [<40 mg/dL: Low (Hig h Risk)] [>59 mg/dL: High (Low Risk)] Cholesterol in LDL [Mass/Vol] 77 mg/dL 0 - 99 mg/dL [facility] Comment on above: [<100 mg/dL: Optimal ] [100-129 mg/dL: Near Optimal] [130-159 mg/dL: Borderline High] [160-189 mg/dL: High] [>189 mg/dL: Very High] Cholesterol non HDL [Mass/Vol] 103 mg/dL NINF - 130 mg/dL [facility] Cholesterol.total/Chol esterol in HDL [Mass ratio] 3.4 {ratio} NINF - 4.5 [facility] Interpretation and review of laboratory results Normal [facility] Triglyceride [Mass/Vol] 132 mg/dL NINF - 150 mg/dL [facility] Comment on above: [<150 mg/dL: Desirab le] [150-199 mg/dL: Borderline] [200-499 mg/dL: High] [>500 mg/dL: Very High] [facility] Calculated LDL Cholesterol 77 mg/dL Normal 0-[address] [facility] Comment on above: Result Comment: [<10 0 mg/dL: Optimal] [100-129 mg/dL: Near Optimal] [130-159 mg/dL: Borderline High] [160-189 mg/dL: High] [>189 mg/dL: Very High] Performed By: #### L IPA, MGO, HFP, IPB, CA, C7ED #### [facility] (DEFAULT) [address] [place] [address]152 Cholesterol [Mass/Vol] 146 mg/dL Normal <200 [facility] Comment on above: Result Comment: [<20 0 mg/dL: Desirable] [200-239 mg/dL: Borderline High] [>239 mg/dL: High] Performed By: #### L IPA, MGO, HFP, IPB, CA, C7ED #### [facility] (DEFAULT) [address] [place] [address] 64592 Cholesterol in HDL [Mass/Vol] 43 mg/dL Normal >=[address] [facility] Comment on above: Result Comment: [<40 mg/dL: Low (High Risk)] [>59 mg/dL: High (Low Risk)] Performed By: #### L IPA, MGO, HFP, IPB, CA, C7ED #### [facility] (DEFAULT) [address] [place] [address]603 Non HDL Cholesterol 103 mg/dL Normal <[address] [facility] Comment on above: Performed By: #### L IPA, MGO, HFP, IPB, CA, C7ED #### [facility] (DEFAULT) [address] [place] [address] 14987 Total Cholesterol/HDL Ratio 3.4 Normal <4.[address] [facility] Comment on above: Performed By: #### L IPA, MGO, HFP, IPB, CA, C7ED #### [facility] (DEFAULT) [address] [place] [address] Triglyceride [Mass/Vol] 132 mg/dL Normal <[address] [facility] Comment on above: Result Comment: [<15 0 mg/dL: Desirable] [150-199 mg/dL: Borderline] [200-499 mg/dL: High] [>500 mg/dL: Very High] Performed By: #### L IPA, MGO, HFP, IPB, CA, C7ED #### [facility] (DEFAULT) [address] [place] [address] MAGNESIUMon 09-08-2023 Magnesium [Mass/Vol] 1.8 mg/dL 1.6 - 2 .6 mg/dL [facility] Magnesium [Mass/Vol] 1.8 mg/dL Normal 1.6-2.[address] [facility] Comment on above: Performed By: #### L IPA, MGO, HFP, IPB, CA, C7ED #### [facility] (DEFAULT) [address] [place] [address] [phone] MR Brain WO contraston 09-07 IMPRESSION: Potential focus of mild reduced diffusivity in the chantel, slightly right of midline, which could potentially represent an acute/subacute infarct versus artifact. No other potential acute abnormalities. OLOGY EXAM: MRI BRAIN WITH OUT CONTRAST, 09/08/2023 19:04 PM COMPARISON: MRI BRAIN STROKE WITHOUT CONTRAST September 08, 2023 CLINICAL INDICATIONS: 53 years Male Left hand weakness, please do thin slices through brainstem RELEVANT CLINICAL HISTORY: TECHNIQUE: A series of multisequence, multiplanar images of the brain are obtained without intravenous contrast. FINDINGS: There appears to be very mild reduced diffusivity located in the chantel, slightly right of midline, without visible corresponding hyperintense FLAIR signal. Lack of FLAIR signal may be secondary to slice thickness or apparent mild diffusion restriction could be artifactual. No definitive acute infarct. Scattered FLAIR signal abnormalities throughout the cerebral white matter are nonspecific, but statistically most consistent with mild chronic microvascular angiopathy. There is no mass effect or abnormal extra-axial fluid collection. The ventricles are normal in size. There are signal voids in the larger intracranial vessels. There are mild scattered areas of paranasal sinus mucosal thickening. Left mastoid tip effusion. RADIOLOGY Denise Newman MD - 09/08/2023 EXAM: MRI BRAIN WITHOUT CONTRAST, 09/08/2023 19:04 PM COMPARISON: MRI BRAIN STROKE WITHOUT CONTRAST September 08, 2023 CLINICAL INDICATIONS: 53 years Male Left hand weakness, please do thin slices through brainstem RELEVANT CLINICAL HISTORY: TECHNIQUE: A series of multisequence, multiplanar images of the brain are obtained without intravenous contrast. FINDINGS: There appears to be very mild reduced diffusivity located in the chantel, slightly right of midline, without visible corresponding hyperintense FLAIR signal. Lack of FLAIR signal may be secondary to slice thickness or apparent mild diffusion restriction could be artifactual. No definitive acute infarct. Scattered FLAIR signal abnormalities throughout the cerebral white matter are nonspecific, but statistically most consistent with mild chronic microvascular angiopathy. There is no mass effect or abnormal extra-axial fluid collection. The ventricles are normal in size. There are signal voids in the larger intracranial vessels. There are mild scattered areas of paranasal sinus mucosal thickening. Left mastoid tip effusion. IMPRESSION IMPRESSION: Potential focus of mild reduced diffusivity in the chantel, slightly right of midline, which could potentially represent an acute/subacute infarct versus artifact. No other potential acute abnormalities. [facility] Radiology Study observation (narrative) [facility] IMPRESSION: 1. No evidence of acute infarct. 2. Nonspecific white matter changes as described above, which can be seen in chronic small vessel ischemic disease. I personally viewed and interpreted these images and I have reviewed and approved this report. OLOGY EXAM: MRI BRAIN STRO KE WITHOUT CONTRAST, 09/08/2023 06:28 AM COMPARISON: No priors available for comparison. CLINICAL INDICATIONS: 53 years Male L arm numbness and weakness, perioral numbness RELEVANT CLINICAL HISTORY: TECHNIQUE: A series of multisequence, multiplanar images of the brain are obtained without intravenous contrast according to acute stroke protocol. Study includes diffusion-weighted images. FINDINGS: Mild scattered periventricular deep white matter T2/FLAIR hyperintense signal, which is nonspecific however can be seen in chronic small vessel ischemic disease. No evidence of edema. No evidence of mass lesion. No evidence of hemorrhage. No diffusion restriction or evidence of acute infarct is identified. No extracerebral collection. Sellar and parasellar structures are unremarkable. Posterior fossa is unremarkable. Ventricles and sulci are within normal limits. Skull and extracranial structures are unremarkable. Fluid in the left mastoid air cells RADIOLOGY Anali Hooper MBBS - 09/08/2023 EXAM: MRI BRAIN STROKE WITHOUT CONTRAST, 09/08/2023 06:28 AM COMPARISON: No priors available for comparison. CLINICAL INDICATIONS: 53 years Male L arm numbness and weakness, perioral numbness RELEVANT CLINICAL HISTORY: TECHNIQUE: A series of multisequence, multiplanar images of the brain are obtained without intravenous contrast according to acute stroke protocol. Study includes diffusion-weighted images. FINDINGS: Mild scattered periventricular deep white matter T2/FLAIR hyperintense signal, which is nonspecific however can be seen in chronic small vessel ischemic disease. No evidence of edema. No evidence of mass lesion. No evidence of hemorrhage. No diffusion restriction or evidence of acute infarct is identified. No extracerebral collection. Sellar and parasellar structures are unremarkable. Posterior fossa is unremarkable. Ventricles and sulci are within normal limits. Skull and extracranial structures are unremarkable. Fluid in the left mastoid air cells IMPRESSION IMPRESSION: 1. No evidence of acute infarct. 2. Nonspecific white matter changes as described above, which can be seen in chronic small vessel ischemic disease. I personally viewed and interpreted these images and I have reviewed and approved this report. [facility] Radiology Study observation (narrative) [facility] MR Brain WO contrastOrdered By: Anali Hooper on 09-08-2023 [facility] Work Phone: MR Cervical spine WO contras ton 09-08-2023 IMPRESSION: Multilevel degenerative spondylosis and degenerative disc disease results in moderate to severe spinal canal stenosis at C2-3 and C3-4, with significant bilateral neuroforaminal stenoses as detailed above. C5-C6 myelomalacia. OLOGY EXAM: MRI SPINE CERV ICAL WITHOUT CONTRAST, 09/08/2023 18:53 PM COMPARISON: No priors available for comparison. CLINICAL INDICATIONS: 53 years Male Left hand weakness RELEVANT CLINICAL HISTORY: TECHNIQUE: A series of sagittal and axial multisequence images of the cervical spine were obtained without intravenous contrast using standard protocol. FINDINGS: Patient is status post ACDF changes from C4-C6. Metallic susceptibility artifact degrades visualization of adjacent structures. The craniocervical junction is unremarkable. Vertebral body heights are maintained. There is straightening of the cervical lordosis without significant listhesis (greater than 3 mm). Intervertebral disc height and signal is maintained. Bone marrow signals within normal limits. Spinal cord demonstrates mild thinning and intramedullary hyperintense T2 signal at C5-6, most consistent with myelomalacia. Level by level: (The below described foraminal stenoses are caused by uncovertebral spurring and facet arthropathy, unless otherwise unspecified.) C2-3: Disc osteophyte complex results in moderate spinal canal stenosis. Moderate bilateral neural foraminal stenosis, greater on the left. C3-4: Disc osteophyte complex results in severe spinal canal stenosis. Severe bilateral neural foraminal stenosis. C4-5: Postsurgical level. No significant spinal canal stenosis. Moderate bilateral neural foraminal stenosis. C5-6: Postsurgical level. No significant spinal canal stenosis. Moderate bilateral neural foraminal stenosis. C6-7: Disc osteophyte complex results in mild spinal canal stenosis. Mild bilateral neural foraminal stenosis. C7-T1: No significant disc bulge or herniation. No neural foraminal stenosis. Prevertebral and paravertebral soft tissue structures are unremarkable. RADIOLOGY Denise Newman MD - 09/08/2023 EXAM: MRI SPINE CERVICAL WITHOUT CONTRAST, 09/08/2023 18:53 PM COMPARISON: No priors available for comparison. CLINICAL INDICATIONS: 53 years Male Left hand weakness RELEVANT CLINICAL HISTORY: TECHNIQUE: A series of sagittal and axial multisequence images of the cervical spine were obtained without intravenous contrast using standard protocol. FINDINGS: Patient is status post ACDF changes from C4-C6. Metallic susceptibility artifact degrades visualization of adjacent structures. The craniocervical junction is unremarkable. Vertebral body heights are maintained. There is straightening of the cervical lordosis without significant listhesis (greater than 3 mm). Intervertebral disc height and signal is maintained. Bone marrow signals within normal limits. Spinal cord demonstrates mild thinning and intramedullary hyperintense T2 signal at C5-6, most consistent with myelomalacia. Level by level: (The below described foraminal stenoses are caused by uncovertebral spurring and facet arthropathy, unless otherwise unspecified.) C2-3: Disc osteophyte complex results in moderate spinal canal stenosis. Moderate bilateral neural foraminal stenosis, greater on the left. C3-4: Disc osteophyte complex results in severe spinal canal stenosis. Severe bilateral neural foraminal stenosis. C4-5: Postsurgical level. No significant spinal canal stenosis. Moderate bilateral neural foraminal stenosis. C5-6: Postsurgical level. No significant spinal canal stenosis. Moderate bilateral neural foraminal stenosis. C6-7: Disc osteophyte complex results in mild spinal canal stenosis. Mild bilateral neural foraminal stenosis. C7-T1: No significant disc bulge or herniation. No neural foraminal stenosis. Prevertebral and paravertebral soft tissue structures are unremarkable. IMPRESSION IMPRESSION: Multilevel degenerative spondylosis and degenerative disc disease results in moderate to severe spinal canal stenosis at C2-3 and C3-4, with significant bilateral neuroforaminal stenoses as detailed above. C5-C6 myelomalacia. [facility] Radiology Study observation (narrative) [facility] MR Cervical spine WO contras tOrdered By: Denise Newman on 09-08-2023 [facility] Work Phone: MRI BRAIN STROKE WITHOUT CON TRASTon 09-08-2023 MRI BRAIN STROKE WITHOUT CONTRAST EXAM: MRI BRAIN STROKE WITHOUT CONTRAST, 09/08/2023 06:28 AM COMPARISON: No priors available for comparison. CLINICAL INDICATIONS: 53 years Male L arm numbness and weakness, perioral numbness RELEVANT CLINICAL HISTORY: TECHNIQUE: A series of multisequence, multiplanar images of the brain are obtained without intravenous contrast according to acute stroke protocol. Study includes diffusion-weighted images. FINDINGS: Mild scattered periventricular deep white matter T2/FLAIR hyperintense signal, which is nonspecific however can be seen in chronic small vessel ischemic disease. No evidence of edema. No evidence of mass lesion. No evidence of hemorrhage. No diffusion restriction or evidence of acute infarct is identified. No extracerebral collection. Sellar and parasellar structures are unremarkable. Posterior fossa is unremarkable. Ventricles and sulci are within normal limits. Skull and extracranial structures are unremarkable. Fluid in the left mastoid air cells IMPRESSION: 1. No evidence of acute infarct. 2. Nonspecific white matter changes as described above, which can be seen in chronic small vessel ischemic disease. I personally viewed and interpreted these images and I have reviewed and approved this report. Normal [facility] MRI BRAIN WITHOUT CONTRASTon 09-08-2023 MRI BRAIN WITHOUT CONTRAST EXAM: MRI BRAIN WITHOUT CONTRAST, 09/08/2023 19:04 PM COMPARISON: MRI BRAIN STROKE WITHOUT CONTRAST September 08, 2023 CLINICAL INDICATIONS: 53 years Male Left hand weakness, please do thin slices through brainstem RELEVANT CLINICAL HISTORY: TECHNIQUE: A series of multisequence, multiplanar images of the brain are obtained without intravenous contrast. FINDINGS: There appears to be very mild reduced diffusivity located in the chantel, slightly right of midline, without visible corresponding hyperintense FLAIR signal. Lack of FLAIR signal may be secondary to slice thickness or apparent mild diffusion restriction could be artifactual. No definitive acute infarct. Scattered FLAIR signal abnormalities throughout the cerebral white matter are nonspecific, but statistically most consistent with mild chronic microvascular angiopathy. There is no mass effect or abnormal extra-axial fluid collection. The ventricles are normal in size. There are signal voids in the larger intracranial vessels. There are mild scattered areas of paranasal sinus mucosal thickening. Left mastoid tip effusion. IMPRESSION: Potential focus of mild reduced diffusivity in the chantel, slightly right of midline, which could potentially represent an acute/subacute infarct versus artifact. No other potential acute abnormalities. Normal [facility] MRI SPINE CERVICAL WITHOUT C ONTRASTon 09-08-2023 MRI SPINE CERVICAL WITHOUT CONTRAST EXAM: MRI SPINE CERVICAL WITHOUT CONTRAST, 09/08/2023 18:53 PM COMPARISON: No priors available for comparison. CLINICAL INDICATIONS: 53 years Male Left hand weakness RELEVANT CLINICAL HISTORY: TECHNIQUE: A series of sagittal and axial multisequence images of the cervical spine were obtained without intravenous contrast using standard protocol. FINDINGS: Patient is status post ACDF changes from C4-C6. Metallic susceptibility artifact degrades visualization of adjacent structures. The craniocervical junction is unremarkable. Vertebral body heights are maintained. There is straightening of the cervical lordosis without significant listhesis (greater than 3 mm). Intervertebral disc height and signal is maintained. Bone marrow signals within normal limits. Spinal cord demonstrates mild thinning and intramedullary hyperintense T2 signal at C5-6, most consistent with myelomalacia. Level by level: (The below described foraminal stenoses are caused by uncovertebral spurring and facet arthropathy, unless otherwise unspecified.) C2-3: Disc osteophyte complex results in moderate spinal canal stenosis. Moderate bilateral neural foraminal stenosis, greater on the left. C3-4: Disc osteophyte complex results in severe spinal canal stenosis. Severe bilateral neural foraminal stenosis. C4-5: Postsurgical level. No significant spinal canal stenosis. Moderate bilateral neural foraminal stenosis. C5-6: Postsurgical level. No significant spinal canal stenosis. Moderate bilateral neural foraminal stenosis. C6-7: Disc osteophyte complex results in mild spinal canal stenosis. Mild bilateral neural foraminal stenosis. C7-T1: No significant disc bulge or herniation. No neural foraminal stenosis. Prevertebral and paravertebral soft tissue structures are unremarkable. IMPRESSION: Multilevel degenerative spondylosis and degenerative disc disease results in moderate to severe spinal canal stenosis at C2-3 and C3-4, with significant bilateral neuroforaminal stenoses as detailed above. C5-C6 myelomalacia. Normal [facility] No Panel Informationon 09-07 Interpretation and review of laboratory results Normal [facility] Interpretation and review of laboratory results Abnormal [facility] PHOSPHATE, INORGANICon 09-07 Phosphate [Mass/Vol] 3.4 mg/dL 2.2 - 4 .6 mg/dL [facility] Phosphorous 3.4 mg/dL Normal 2.2-4.[address] [facility] Comment on above: Performed By: #### L IPA, MGO, HFP, IPB, CA, C7ED #### [facility] (DEFAULT) [address] [place] [id number] PLATELET COUNTon 09-08-2023 Interpretation and review of laboratory results Abnormal [facility] Platelet mean volume (Bld) [Entitic vol] 11.6 fL 8.7 - 12.3 fL [facility] Platelets (Bld) [#/Vol] 145 10*3/uL Low 146 - 337 K/uL [facility] Platelet mean volume (Bld) [Entitic vol] 11.6 fL Normal 8.7-12.[address] [facility] Comment on above: Performed By: #### P LAT #### [facility] (DEFAULT) [address] [place] [phone] Platelets (Bld) [#/Vol] 145 10*3/uL Low 146-[address] [facility] Comment on above: Performed By: #### P LAT #### [facility] (DEFAULT) [address] [place] [phone] PT,INR,PTTon 09-08-2023 aPTT Coag (PPP) [Time] 27.9 s [facility] INR Coag (Bld) [Relative time] 1.0 {INR} 0.9 - 1.1 [facility] Interpretation and review of laboratory results Normal [facility] PT Coag (PPP) [Time] 13.0 s [facility] aPTT Coag (Bld) [Time] 27.9 s Normal 24.0-34.3 [facility] Comment on above: Performed By: #### L IPA, MGO, HFP, IPB, CA, C7ED #### [facility] (DEFAULT) [address] [place] [id number] INR Coag (PPP) [Relative time] 1.0 {INR} Normal 0.9-1.[address] [facility] Comment on above: Performed By: #### L IPA, MGO, HFP, IPB, CA, C7ED #### [facility] (DEFAULT) [address] [place] [phone] PT Coag (PPP) [Time] 13.0 s Normal 11.9-14.[address] [facility] Comment on above: Performed By: #### L IPA, MGO, HFP, IPB, CA, C7ED #### [facility] (DEFAULT) [address] [place] [phone] Portable XR Chest Viewson IMPRESSION: Limited study due to rotation and low lung volumes. Probable small volume of pneumoperitoneum beneath the right hemidiaphragm, also noted on the comparison outside radiograph. No airspace consolidation. I personally viewed and interpreted these images and I have reviewed and approved this report. OLOGY EXAM: XR CHEST 1 VIE W PORTABLE, 09/08/2023 01:20 AM COMPARISON: September 07, 2023 CLINICAL INDICATIONS: assess for free air under the diaphragm FINDINGS: Limited study due to rotation and low lung volumes. Thorax: Cardiac and mediastinal contours are grossly normal. Low lung volumes. No gross airspace consolidation or pleural effusion. Subtle lucency beneath the right hemidiaphragm. Chest wall structures are grossly intact. Cervical ACDF plate noted. RADIOLOGY Lorna Oquendo M D - 09/08/2023 EXAM: XR CHEST 1 VIEW PORTABLE, 09/08/2023 01:20 AM COMPARISON: September 07, 2023 CLINICAL INDICATIONS: assess for free air under the diaphragm FINDINGS: Limited study due to rotation and low lung volumes. Thorax: Cardiac and mediastinal contours are grossly normal. Low lung volumes. No gross airspace consolidation or pleural effusion. Subtle lucency beneath the right hemidiaphragm. Chest wall structures are grossly intact. Cervical ACDF plate noted. IMPRESSION IMPRESSION: Limited study due to rotation and low lung volumes. Probable small volume of pneumoperitoneum beneath the right hemidiaphragm, also noted on the comparison outside radiograph. No airspace consolidation. I personally viewed and interpreted these images and I have reviewed and approved this report. [facility] Radiology Study observation (narrative) [facility] Portable XR Chest ViewsOrder ed By: Lorna Oquendo on 09-08-2023 [facility] Work Phone: XR CHEST 1 VIEW PORTABLEon 0 09-08-2023 XR CHEST 1 VIEW PORTABLE EXAM: XR CHEST 1 VIEW PORTABLE, 09/08/2023 01:20 AM COMPARISON: September 07, 2023 CLINICAL INDICATIONS: assess for free air under the diaphragm FINDINGS: Limited study due to rotation and low lung volumes. Thorax: Cardiac and mediastinal contours are grossly normal. Low lung volumes. No gross airspace consolidation or pleural effusion. Subtle lucency beneath the right hemidiaphragm. Chest wall structures are grossly intact. Cervical ACDF plate noted. IMPRESSION: Limited study due to rotation and low lung volumes. Probable small volume of pneumoperitoneum beneath the right hemidiaphragm, also noted on the comparison outside radiograph. No airspace consolidation. I personally viewed and interpreted these images and I have reviewed and approved this report. Normal [facility] Laboratory - Chemistry and C hemistry - challengeon 12-15-2021 Albumin DL <= 20 mg/L (U) [Mass/Vol] 8.0 mg/dL High 0 - 1.8 mg/dL [facility] Albumin/Creatinine DL <= 20 mg/L (U) [Mass ratio] 122 mg/g High [facility] Creatinine (U) [Mass/Vol] 65.8 mg/dL [facility] No Panel Informationon 12-15 Interpretation and review of laboratory results Abnormal [facility] HbA1c (Bld) [Mass fraction]O rdered By: Elsy Acevedo on 10-09-2021 Average glucose Estimated from glycated hemoglobin (Bld) [Mass/Vol] 295 mg/dL High 68 - 114 mg/dL [facility] Interpretation and review of laboratory results Abnormal [facility] Normal: 4.0% - 5.6% Increased risk for diabetes: 5.7% - 6.4% Diabetes: >= 6.5% Pediatrics: No established reference range Estimated average glucose: 68-114 mg/dL [facility] Hemoglobin [id number] By: Alix Acevedo on 10-09-2021 HbA1c (Bld) [Mass fraction] 11.9 % High 4 - 5.6 % [facility] Basic metabolic 2000 panelon 10-08-2021 Anion gap [Moles/Vol] 11 mmol/L 10 - 2 0 mmol/L [facility] Calcium [Mass/Vol] 9.1 mg/dL 8.4 - 10. 2 mg/dL [facility] Chloride [Moles/Vol] 104 mmol/L 98 - 10 8 mmol/L [facility] Creatinine [Mass/Vol] 0.57 mg/dL 0.50 - 1.30 mg/dL [facility] GFR/1.73 sq M.predicted CKD-EPI (S/P/Bld) [Vol rate/Area] 119 - PINF [facility] Comment on above: Estimated GFR was ca lculated using the 2020 CKD-EPI creatinine equation. Glucose [Mass/Vol] 354 mg/dL High 65 - 99 mg/dL [facility] HCO3 [Moles/Vol] 27 mmol/L 21 - 32 mmol/L [facility] Potassium [Moles/Vol] 4.1 mmol/L 3.5 - 5.1 mmol/L [facility] Sodium [Moles/Vol] 138 mmol/L 135 - 145 mmol/L [facility] Urea nitrogen [Mass/Vol] 10 mg/dL 8 - 25 mg/dL [facility] Urea nitrogen/Creatinine [Mass ratio] 17.5 mg/mg 10 - 20 [facility] has implemented the eGFR calculation approach that does not have a coefficient for race that conforms to the NKF-ASN Task Force Recommendations. [facility] Hepatic function 2000 panelo n 10-08-2021 Albumin [Mass/Vol] 3.3 g/dL 3.2 - 5.2 g/dL [facility] ALP [Catalytic activity/Vol] 74 U/L 40 - 150 U/L [facility] ALT [Catalytic activity/Vol] 23 U/L 14 - 65 U/L [facility] AST [Catalytic activity/Vol] 13 U/L 0 - 45 U/L [facility] Bilirubin [Mass/Vol] 0.6 mg/dL 0 - 1.3 mg/dL [facility] Bilirubin.conjugated [Mass/Vol] 0.2 mg/dL 0 - 0.4 mg/dL [facility] Protein [Mass/Vol] 7.1 g/dL 6 - 8 g/dL [facility] alth Lipid 1996 panelon 2 Cholesterol [Mass/Vol] 176 mg/dL 100 - 199 mg/dL [facility] Comment on above: National Cholesterol Education Program Guidelines: Cholesterol Desirable: <200 mg/dL Borderline High: 200-239 mg/dL High: greater than or equal to 240 mg/dL Cholesterol in HDL [Mass/Vol] 41 mg/dL 40 - 59 mg/dL [facility] Comment on above: National Cholesterol Education Program Guidelines: HDL Cholesterol Low: <40 mg/dL Near Optimal: 40-59 mg/dL High: greater than or equal to 60 mg/dL Cholesterol in LDL [Mass/Vol] 103 mg/dL 10 - 130 mg/dL [facility] Comment on above: National Cholesterol Education Program Guidelines: LDL Cholesterol Optimal: <100 mg/dL Near Optimal/above Optimal: 100-129 mg/dL Borderline High: 130-159 mg/dL High: 160-189 mg/dL Very High: greater than or equal to 190 mg/dL Cholesterol non HDL [Mass/Vol] 135 mg/dL [facility] Comment on above: National Cholesterol Education Program Guidelines: NON HDL Cholesterol Desirable: <130 mg/dL Borderline High: 130-159 mg/dL High: 160-189 mg/dL Very High: > or = 190 mg/dL Cholesterol.total/Chol esterol in HDL [Mass ratio] 4.3 {ratio} ratio [facility] Comment on above: Males Cholesterol/HD L Ratio: Average risk: 5.0 1/2 average risk: 3.4 2 x average risk: 9.6 Triglyceride [Mass/Vol] 158 mg/dL High 30 - 150 mg/dL [facility] Comment on above: National Cholesterol Education Program Guidelines: Triglyceride Normal: <150 mg/dL Borderline High: 150-199 mg/dL High: 200-499 mg/dL Very High: greater than or equal to 500 mg/dL No Panel Informationon 10-08 Interpretation and review of laboratory results Abnormal [facility] Interpretation and review of laboratory results Normal [facility] TSH DL <= 0.005 mIU/L Qnon 0 10-08-2021 TSH Qn 1.37 m[IU]/L [facility] Uric Acidon 10-08-2021 Urate [Mass/Vol] 4.4 mg/dL 3.4 - 8.5 mg/dL [facility] Provider Note - ED v3on 08-07 Provider Note - ED v3 Provider Note: Chart Review: ED NOTES ED NOTES: Source of Information: Patient. EMR was reviewed for previous records. ------- HPI: Possible shingles. There is 51-year-old white male presents to the ED with complaint of possible nose. He states that a year ago he had shingles and now is experiencing the same pain that he had before since states that he does not see a rash but the pain is same describes as a dermatomal distribution discomfort from the medial portion of the thoracic spine across his anterior chest anteriorly. States that he wanted to treat the symptoms early because last time the pain was so severe. He states that currently does not have a primary care doctor he does admit to multiple medical problems. ------- PMH: Shingles, type 2 diabetes, hypertension, gout, obesity PSH: Fusion of C5-C6 Social Hx: The patient denies any use of tobacco, alcohol or illicit drugs. Fam: MEDS: Noted in the EMR. ALLERGIES: NKDA ------- PHYSICAL EXAM: General: Patient alert, awake, oriented X3, appears be no obvious distress, nontoxic, cooperative Skin: Warm. Dry. Intact. No rash. Eyes: PEARTLA, EOMIs intact, sclera white, conjunctiva clear HEENT: Atraumatic. Normo-cephalic. Oral nasal mucosa pink and moist. Neck: Supple without meningismus, no lymphadenopathy. CV: Regular rate and rhythm without murmurs, heaves, lifts or thrills. Respiratory: Nonlabored breathing. There are no retractions or tachypnea. Lungs are clear to auscultation bilaterally. GI: Soft, nontender, without gross distention, bowel sounds present in all 4 quadrants. There is no pulsatile masses. There is no CVA tenderness. No rebound, rigidity or guarding. MUSC: There is no joint swelling or bony tenderness on exam. Neuro: Cranial nerves II - XII grossly intact. No focal neurologic deficits are noted on exam. Lower extremities: There is no peripheral edema bilaterally, negative Homans sign. No palpable cords. Distal pulses are present in both lower extremities. Psych: Maintains eye contact. Cooperative. ------- ED course: No rash consistent with shingles was visualized the patient's symptoms are consistent with shingles and the distribution is consistent with shingles and was started on antiviral treatment prior to being discharged home with a prescription for antivirals he is also of the names of physicians to follow-up with. This chart was dictated with the use of [employer] software within the framework of the current electronic medical records software. Attempts were made to edit in real time, given time constraints there is the potential for inaccuracies in my dictation. Yovany Goff, DO HISTORY OF PRESENTING ILLNESS MAXWELL is a 51 year old Male and was seen by me at 27-Aug-2021 00:37 for a chief complaint of other (Pt complaint of burning sensation to right shoulder and right armpit starting couple days ago, worse today. Pt concerned about shingles.)(1). Triage Information: Most recent Vital Sign Value Date Temp (F): 97.5 08-27-2021 00:43 Temp (C): 36.3 08-27-2021 00:43 Heart Rate (beats/min): 95 08-27-2021 00:43 Respirations (breaths/min): 18 08-27-2021 00:43 SpO2 (%): 97 08-27-2021 00:43 BP Systolic (mm Hg): 190 08-27-2021 00:43 BP Diastolic (mm Hg): 112 08-27-2021 00:43 PAST MEDICAL HISTORY CURRENT OR FORMER SUBSTANCE USE: Tobacco/Nicotine Use: never smoker Alcohol Use: denies Drug Use: denies,ALLERGIES/INTOLERANC ES: No Known Allergies HEALTH HISTORY: No documented data. OUTPATIENT MEDICATIONS: Home Medications Review Status for Reconciliation: Not Done Med Status: Patient Currently Takes Medications Drug Name: famciclovir 500 mg oral tablet Instructions: 1 tab(s) orally 3 times a day SIGNIFICANT EVENTS: No documented data. REVIEW OF SYSTEMS CONSTITUTIONAL: Negative for: anorexia, chills, diaphoresis, fever, malaise, weakness and weight loss EYES: Negative for: itching, lacrimation, lid swelling, pain, photophobia, redness and vision changes ENMTEars: Negative for: discharge, itching, hearing disturbance, hearing loss, pain and tinnitus Nose: Negative for: congestion, discharge, nose bleeds, obstruction and sneezing Mouth/Teeth: Negative for: gum bleeding, mouth lesions, tooth caries, tooth trauma and toothache Throat/Neck: Negative for: dysphagia, hoarseness, throat lesions, throat (more content not included)... Normal [facility] Risk Screen - Adult Emergenc yon 08-27-2021 Risk Screen - Adult Emergency Preferred Language: Preferred Language: Preferred Language for Discussing Health Care (patient/designee)Guyanese Advanced Directives: Advance Directive/DNRno Family Violence Adult: Abuse Screen: Are you or have you been threatened or abused physically, emotionally, or sexually by anyoneno Learning Assessment (Patient): Learning Assessment (Patient): Patient is Able to be Assessed for Learningyes Factors Influencing Readiness to Learnacuteness of illness Factors that Impact Ability to Learnnone Devices/Methods Used to Communicatenone Learning Preferencesaudio Cultural Considerationsnone Developmental Considerationsnone Jewish Considerationsnone Learning Assessment (Other Learner): Learning Assessment (Other Learner): Other learner availableno Pressure Injury/TB/Substance: Pressure Injury: Pressure Injury Present on Admissionno Do you have a coughno Smoking Statusmoderate user (uses 11-30 cig/day, OR 0.5-1.5 ppd, OR 2-3 cans/pouches loose leaf tobacco per week, OR 0.5-1.5 vape pods per day) Tobacco Cessation Education (provide if tobacco use within the last 12 mos) patient declined Alcohol Usedenies Drug Usedenies Drug 2 Usedenies Admission Risk Screen: Significant IndicatorsComplete CAGE: CAGE: Is this an injured patient at a Trauma Center ([facility]/[place]): no Electronic Signatures: Anaid Christopher (AYUSH) (Signed 27-Aug-2021 00:46) Authored: Preferred Language, Advanced Directives, Family Violence Adult, Learning Assessment (Patient), Learning Assessment (Other Learner), Pressure Injury/TB/Substance, Pressure Injury, CAGE Last Updated: 27-Aug-2021 00:46 by Anaid Christopher (RN) [facility] Triage - EDon 08-27-2021 Triage - ED Quick Triage: The patient and/or guardian verbally acknowledges placement for services into the following (when Urgent Care Service hours are operating):emergency department Chart Review: PRIMARY ASSESSMENT MAXWELL SANDHU's primary assessment is Within Defined Limits. The airway is open and patent. Breathing spontaneous and unlabored with clear breath sounds bilaterally. Circulation is normal with good peripheral pulses. Skin is warm and dry and color is normal for race. ARRIVAL INFORMATION Means of Arrival: wheelchair Mode of Arrival: private vehicle Arrival From: home Accompanied By: self Language: Spoken Language Preferred: Guyanese Reading Language Preferred: Guyanese Boat Out[employer] Supervisor Requested: no board of education secretary was requested MDRO: History of MDRO: no Present on Arrival: Device Present on Arrival to ED: no Pressure Ulcer Present on Arrival to ED: no CHIEF COMPLAINT MAXWELL SANDHU is a Male patient with a chief complaint of other (Pt complaint of burning sensation to right shoulder and right armpit starting couple days ago, worse today. Pt concerned about shingles.). Triage Date/Time: 27-Aug-2021 00:44 VINAY: 4 Pain Rating (0-10): 8 = Severe Pain location: right shoulder Vital Signs: Temperature: 97.5F ( 36.3C) taken forehead Blood Pressure: 190/112 Mean: Heart Rate: 95 Respiratory Rate: 18 Pulse Oximetry: 97% on room air, no respiratory support. Height: 5 feet 11.00 inches. 180.3 CM Weight: 355.8 pounds. Calculated 161.4 kg. (stated) Calculated BMI (kg/m2): 49.649 Calculated BSA (m2) 2.84 Jeremy Coma Scale: Best Eye Response: (E4) spontaneous Best Motor Response: (M6) obeys commands Best Verbal Response: (V5) oriented Jeremy Score: 15 Cough lasting greater than 3 weeks: no Allergies: no Mask applied: yes Patient has homicidal thoughts: no Symptoms Are POSITIVE For: pain Symptoms Are Negative For: anxiety, chills, diaphoresis, dyspnea, headache, loss of consciousness, nausea, numbness, tingling and weakness Last Known Well: unknown Risk Screens Suicide Risk Screen In the Past Month: Have you wished you were or wished you could go to sleep and not wake up no In the Past Month: Have you had any actual thoughts of killing yourself no In Your Lifetime: Have you ever done anything, started to do anything, or prepared to do anything to end your life no Interventions: Narayanan Fall Interventions: LOW INTERVENTIONS: *patient oriented to surroundings and call system, * patient/family falls education completed and documented, *patients fall status communicated during bedside handoff, *whiteboard updated, *mode of toileting discussed with patient, *bed in low position with brakes locked, *call light in reach, * non-skid footwear PAST MEDICAL HISTORY Immunization History: Last Known Tetanus Immunization: Unknown TRAVEL HISTORY Travel History Coronavirus Screening: no exposure or symptoms Travel Exposure History: NO travel to International locations in the past 30 days PAIN Pain Scale Used: RICHARDSON Pain Rating (0-10): 8 = Severe Past Medical History: Past Medical History Reviewedyes Electronic Signatures: Anaid Christopher (RN) (Signed 27-Aug-2021 00:45) Authored: Quick Triage, Risk Screens, Pain, Arrival, ABCD, Immunizations, Travel History, Chart Review, Scores, Past Medical History Last Updated: 27-Aug-2021 00:45 by Anaid Christopher (RN) Normal [facility] BASIC METABOLIC PANELon 03-09 Anion gap [Moles/Vol] 14 mmol/L Normal 0-[address] [facility] Comment on above: Performed By: #### B MP #### [facility] [address] [place] [address] Calcium [Mass/Vol] 9.5 mg/dL Normal 8.5-10.4 [facility] Comment on above: Performed By: #### B MP #### [facility] [address] [place] [address] Chloride [Moles/Vol] 92 mmol/L Low 97-107 [facility] Comment on above: Performed By: #### B MP #### [facility] [address] [place] [address] CO2 [Moles/Vol] 24 mmol/L Normal 24-31 [facility] Comment on above: Performed By: #### B MP #### [facility] [address] [place] [address] Creatinine [Mass/Vol] 0.5 mg/dL Normal 0.4-1.[address] [facility] Comment on above: Performed By: #### B MP #### [facility] [address], [place] [address] ESTIMATED GFR 124 mL/min/1.73 m2 Normal [facility] Comment on above: Result Comment: CALCULATIONS OF ESTIMATED GFR ARE PERFORMED USING THE 2020 CKD-EPI STUDY REFIT EQUATION WITHOUT THE RACE VARIABLE FOR THE IDMS-TRACEABLE CREATININE METHODS. https://jasn.asnjournals.org/content/early/ASN.12144 59703 [facility]formed [facility] [address] [place] [address] Performed By: #### B MP #### [facility] [address], [place] [address] Glucose [Mass/Vol] 491 mg/dL High 65-99 [facility] Comment on above: Performed By: #### B MP #### [facility] [address], [place] [address] Potassium [Moles/Vol] 4.2 mmol/L Normal 3.4-5.[address] [facility] Comment on above: Performed By: #### B MP #### [facility] [address], [place] [address] Sodium [Moles/Vol] 130 mmol/L Low 133-145 [facility] Comment on above: Performed By: #### B MP #### [facility] [address], [place] [address] Urea nitrogen [Mass/Vol] 8 mg/dL Normal 8-25 [facility] Comment on above: Performed By: #### B MP #### [facility] [address], [place] [address] Urea nitrogen/Creatinine [Mass ratio] 16.0 mg/mg Normal 8-21 [facility] Comment on above: Performed By: #### B MP #### [facility] [address], [place] [address] CBC with Diffon 03-21-2021 AB IMMATURE NEUT 0.02 K/UL Normal 0.0-0.1 [facility] Comment on above: Performed By: #### C BCD #### [facility] [address], [place] [address] ABS BASO 0.08 K/UL Normal 0.00-0.22 [facility] Comment on above: Performed By: #### C BCD #### [facility] [address], [place] [address] ABS EOS 0.21 K/UL Normal 0-0.45 [facility] Comment on above: Performed By: #### C BCD #### [facility] [address], [place] [address] ABS NEUTROPHILS 5.01 K/UL Normal 1.8-7.7 [facility] Comment on above: Performed By: #### C BCD #### [facility] [address], [place] [address] ABS.NEUT.CALCULATED 5.01 K/UL Normal [facility] Comment on above: Result Comment: Perf ormed at [facility] [address] [place] [address] Performed By: #### C BCD #### [facility] [address], [place] [address] Basophils/100 WBC (Bld) 1.00 % Normal 0-1 [facility] Comment on above: Performed By: #### C BCD #### [facility] [address], [place] [address] DIFF TYPE AUTO DIFF Normal [facility] Comment on above: Performed By: #### C BCD #### [facility] [address], [place] [address] Eosinophils/100 WBC (Bld) 2.50 % Normal 0-3 [facility] Comment on above: Performed By: #### C BCD #### [facility] [address], [place] [address] Erythrocyte distribution width (RBC) [Ratio] 12.6 % Normal 11.7-15.0 [facility] Comment on above: Performed By: #### C BCD #### [facility] [address], [place] [address] Hematocrit (Bld) [Volume fraction] 48.2 % Normal 41-50 [facility] Comment on above: Performed By: #### C BCD #### [facility] [address], [place] [address] Hemoglobin (Bld) [Mass/Vol] 16.1 g/dL Normal 13.5-16.5 [facility] Comment on above: Performed By: #### C BCD #### [facility] [address], [place] [address] Lymphocytes (Bld) [#/Vol] 2.33 10*3/uL Normal 1.2-3.2 [facility] Comment on above: Performed By: #### C BCD #### [facility] [address], [place] [address] Lymphocytes/100 WBC (Bld) 28.30 % Normal 20-40 [facility] Comment on above: Performed By: #### C BCD #### [facility] [address], [place] [address] MCH (RBC) [Entitic mass] 27.5 pg Normal 26-34 [facility] Comment on above: Performed By: #### C BCD #### [facility] [address], [place] [address] MCHC 33.4 % Normal 31-37 [facility] Comment on above: Performed By: #### C BCD #### [facility] [address], [place] [address] MCV (RBC) [Entitic vol] 82.3 fL Normal 80-100 [facility] Comment on above: Performed By: #### C BCD #### [facility] [address], [place] [address] MEAN PLT VOL 11.2 CU Normal 7.0-12.6 [facility] Comment on above: Performed By: #### C BCD #### [facility] [address], [place] [address] Monocytes (Bld) [#/Vol] 0.59 10*3/uL Normal 0-0.8 [facility] Comment on above: Performed By: #### C BCD #### [facility] [address], [place] [address] Monocytes/100 WBC (Bld) 7.20 % Normal 0-8 [facility] Comment on above: Performed By: #### C BCD #### [facility] [address], [place] [address] Neutrophils/100 WBC (Bld) 0.20 % Normal 0.0-1.0 [facility] Comment on above: Performed By: #### C BCD #### [facility] [address], [place] [address] Neutrophils/100 WBC (Bld) 60.80 % Normal 50-70 [facility] Comment on above: Performed By: #### C BCD #### [facility] [address] [place] [address] NRBC'S 0 /100 WBC Normal 0 [facility] Comment on above: Performed By: #### C BCD #### [facility] [address] [place] [address] Platelets (Bld) [#/Vol] 197 10*3/uL Normal 150-450 [facility] Comment on above: Performed By: #### C BCD #### [facility] [address] [place] [address] RBC (Bld) [#/Vol] 5.86 10*6/uL High 4.5-5.5 [facility] Comment on above: Performed By: #### C BCD #### [facility] [address] [place] [address] RDW-SD 37.8 FL Normal 37.0-54.0 [facility] Comment on above: Performed By: #### C BCD #### [facility] [address] [place] [address] WBC (Bld) [#/Vol] 8.2 10*3/uL Normal 4.5-11.0 [facility] Comment on above: Performed By: #### C BCD #### [facility] [address] [place] [address] Laboratory - Chemistry and C hemistry - challengeon 03-21-2021 Anion gap [Moles/Vol] Anion Gap 14 MMOL/ L (0-19 MMOL/L) 0 - 19 MMOL/L [facility] Work Phone: Calcium [Mass/Vol] Calcium 9.5 MG/DL (8 .5-10.4 MG/DL) 8.5 - 10.4 MG/DL S Work Phone: Chloride [Moles/Vol] Chloride 92 MMOL/L L (97-107 MMOL/L) Low 97 - 107 MMOL/L [facility] Work Phone: CO2 [Moles/Vol] Carbon Dioxide 24 MM OL/L (24-31 MMOL/L) 24 - 31 MMOL/L [facility] Work Phone: Creatinine [Mass/Vol] Creatinine R 0.5 M G/DL (0.4-1.6 MG/DL) 0.4 - 1.6 MG/DL S Work Phone: GFR/1.73 sq M.predicted MDRD (S/P/Bld) [Vol rate/Area] EGFR 124 mL/min/1.73 m2 (Reference Range: not available) CALCULATIONS OF ESTIMATED GFR ARE PERFORMED USING THE 2020 CKD-EPI STUDY REFIT EQUATION WITHOUT THE RACE VARIABLE FOR THE IDMS-TRACEABLE CREATININE METHODS. https://jasn.asnjournals.or g/content/early// ASN.4486654931 Performed at [address] [address] [facility] Work Phone: Glucose [Mass/Vol] Glucose 491 MG/DL H (65-99 MG/DL) High 65 - 99 MG/DL [facility] Work Phone: Potassium [Moles/Vol] Potassium R 4.2 MM OL/L (3.4-5.1 MMOL/L) 3.4 - 5.1 MMOL/L S Work Phone: Sodium [Moles/Vol] Sodium 130 MMOL/L L (133-145 MMOL/L) Low 133 - 145 MMOL/L [facility] Work Phone: Urea nitrogen [Mass/Vol] BUN 8 MG/DL (8-25 MG/DL) 8 - 25 MG/DL S Work Phone: Urea nitrogen/Creatinine [Mass ratio] BUN Creatinine Ratio 16.0 RATIO (8-21 RATIO) 8 - 21 RATIO [facility] Work Phone: Laboratory - Hematology and Cell countson 03-21-2021 Basophils (Bld) [#/Vol] Abs Baso 0.08 K/UL (0.00-0.22 K/UL) 0.00 - 0.22 K/UL [facility] Work Phone: Basophils/100 WBC (Bld) Basophil 1.00 % (0-1 %) 0 - 1 % S Work Phone: Differential cell count method Nom (Bld) Diff Type AUTO DIFF (Reference Range: not available) [facility] Work Phone: Eosinophils (Bld) [#/Vol] Abs Eos 0.21 K/UL (0-0.45 K/UL) 0 - 0.45 K/UL [facility] Work Phone: Eosinophils/100 WBC (Bld) Eosinophil 2.50 % (0-3 %) 0 - 3 % [employer] Work Phone: Erythrocyte distribution width (RBC) [Entitic vol] RDW SD 37.8 FL (37.0-54.0 FL) 37.0 - 54.0 FL [facility] Work Phone: Erythrocyte distribution width (RBC) [Ratio] RDW CV 12.6 % (11.7-15.0 %) 11.7 - 15.0 % [facility] Work Phone: Hematocrit (Bld) [Volume fraction] HCT 48.2 % (41-50 %) 41 - 50 % [facility] Work Phone: Hemoglobin (Bld) [Mass/Vol] HGB 16.1 GM/DL (13.5-16.5 GM/DL) 13.5 - 16.5 GM/DL [facility] Work Phone: Immature granulocytes (Bld) [#/Vol] Abs Imm Neut 0.02 K/UL (0.0-0.1 K/UL) 0.0 - 0.1 K/UL [facility] Work Phone: Lymphocytes (Bld) [#/Vol] Abs Lymph 2.33 K/UL (1.2-3.2 K/UL) 1.2 - 3.2 K/UL [facility] Work Phone: Lymphocytes/100 WBC (Bld) Lymphocyte 28.30 % (20-40 %) 20 - 40 % [facility] Work Phone: MCH (RBC) [Entitic mass] MCH 27.5 PG (26-34 PG) 26 - 34 PG [facility] Work Phone: MCHC (RBC) [Mass/Vol] MCHC 33.4 % (31-37 %) 31 - 37 % [facility] Work Phone: MCV (RBC) [Entitic vol] MCV 82.3 FL (80-100 FL) 80 - 100 FL [facility] Work Phone: Monocytes (Bld) [#/Vol] Abs [place] 0.59 K/UL (0-0.8 K/UL) 0 - 0.8 K/UL [facility] Work Phone: Monocytes/100 WBC (Bld) Monocyte 7.20 % (0-8 %) 0 - 8 % [facility] Work Phone: Neutrophils (Bld) [#/Vol] Abs.Neut.Calculated 5.01 K/UL (Reference Range: not available) Performed at [facility] [address] [place] [id number] [facility] Work Phone: Neutrophils (Bld) [#/Vol] Abs Neut 5.01 K/UL (1.8-7.7 K/UL) 1.8 - 7.7 K/UL [facility] Work Phone: Neutrophils.immature/1 00 WBC (Bld) Immature Neut % 0.20 % (0.0-1.0 %) 0.0 - 1.0 % [facility] Work Phone: Nucleated RBC/100 WBC (Bld) [Ratio] NRBCs 0 /100 WBC (0 /100 WBC) [facility] Work Phone: Platelet mean volume (Bld) [Entitic vol] MPV 11.2 CU (7.0-12.6 CU) 7.0 - 12.6 CU [facility] Work Phone: Platelets (Bld) [#/Vol] PLT 197 K/UL (150-450 K/UL) 150 - 450 K/UL [facility] Work Phone: RBC (Bld) [#/Vol] RBC 5.86 M/UL H (4.5 -5.5 M/UL) High 4.5 - 5.5 M/UL [facility] Work Phone: Segmented neutrophils/100 WBC (Bld) Granulocyte 60.80 % (50-70 %) 50 - 70 % [facility] Work Phone: WBC (Bld) [#/Vol] WBC 8.2 K/UL (4.5-11 .0 K/UL) 4.5 - 11.0 K/UL [facility] Work Phone: No Panel Informationon 03-21 XR Toes Left Min 2 V iews (Reference Range: not available) *FINAL Date of Service: 03/21/2021 17:16 Adm #: [id number] Reading Dr:REENA DE LA FUENTE Signoff Dr: REENA DE LA FUENTE PROCEDURE: TOES LT MIN 2 VIEW - IXR [id number] REASON FOR EXAM: Diabetic wound RESULT: TOES LT MIN 2 VIEW: 03/21/2021 5:16 PM. CLINICAL INDICATION: Diabetic wound . COMPARISON: None.. TECHNIQUE: Three views of the left foot and first toe were performed. FINDINGS: Bones: There is no fracture, blastic or lytic bone lesion to suggest acute osteomyelitis. Joints: Mild degenerative changes involve the first metatarsophalangeal and interphalangeal joint. Soft tissues: Unremarkable. IMPRESSION: No acute fracture. No evidence of acute osteomyelitis. [id number] This report has been produced using speech recognition. Original Interpreting Physician: REENA DE LA FUENTE M.D. Original Transcribed by/Date: [facility] Mar 21 2021 5:37P Original Electronically Signed by/Date: REENA DE LA FUENTE M.D. Mar 21 2021 5:37P Addendum Interpreting Physician: Addendum Transcribed by/Date: NO ADDENDUM Addendum Electronically Signed by/Date: [facility] Work Phone: POCT GLUCOSEon 03-21-2021 Glucose [Mass/Vol] 345 mg/dL High 65-99 [facility] Comment on above: Performed By: #### P CGL #### [facility] [address] [place] [address] TOES LT MIN 2 VIEWon 022 TOES LT MIN 2 VIEW *FINAL Date of Service: 03/21/2021 17:16 Adm #: [id number] Reading Dr:REENA DE LA FUENTE Signoff Dr: REENA DE LA FUENTE PROCEDURE: TOES LT MIN 2 VIEW - IXR [id number] REASON FOR EXAM: Diabetic wound RESULT: TOES LT MIN 2 VIEW: 03/21/2021 5:16 PM. CLINICAL INDICATION: Diabetic wound . COMPARISON: None.. TECHNIQUE: Three views of the left foot and first toe were performed. FINDINGS: Bones: There is no fracture, blastic or lytic bone lesion to suggest acute osteomyelitis. Joints: Mild degenerative changes involve the first metatarsophalangeal and interphalangeal joint. Soft tissues: Unremarkable. IMPRESSION: No acute fracture. No evidence of acute osteomyelitis. [id number] This report has been produced using speech recognition. Original Interpreting Physician: REENA DE LA FUENTE M.D. Original Transcribed by/Date: [facility] Mar 21 2021 5:37P Original Electronically Signed by/Date: REENA DE LA FUENTE M.D. Mar 21 2021 5:37P Addendum Interpreting Physician: Addendum Transcribed by/Date: NO ADDENDUM Addendum Electronically Signed by/Date: [facility] Vital Signs Date Time Vital Sign Value Performing Clinician Facility 08-16-2024 14:41-0400 Body height 175.[address] Curtis Hernandez MD Work Phone: [facility] 08-16-2024 14:41-0400 Body mass index (BMI) [Ratio] 51.5 kg/m2 Dr. Curtis Hernandez MD Work Phone: [facility] 08-16-2024 14:41-0400 Body temperature 97.2 [degF] Dr. Curtis Hernandez MD Work Phone: [facility] 08-16-2024 14:41-0400 Body weight 158.[address] Curtis Hernandez MD Work Phone: [facility] 08-16-2024 14:41-0400 Diastolic blood pressure 84 mm[Hg] Dr. Curtis Hernandez MD Work Phone: [facility] 08-16-2024 14:41-0400 Heart rate 64 /min Dr. Curtis Hernandez MD Work Phone: [facility] 08-16-2024 14:41-0400 Respiratory rate 18 /min Dr. Curtis Hernandez MD Work Phone: [facility] 08-16-2024 14:41-0400 SaO2% (BldA) [Mass fraction] 97 % Dr. Curtis Hernandez MD Work Phone: [facility] 08-16-2024 14:41-0400 Systolic blood pressure 128 mm[Hg] Dr. Curtis Hernandez MD Work Phone: [facility] 07-31-2024 13:38-0400 Body height 175.3 cm Curtis Hernandez MD Work Phone: [facility] 07-31-2024 13:38-0400 Body mass index (BMI) [Ratio] 51.54 kg/m2 Curtis Hernandez MD Work Phone: [facility] 07-31-2024 13:38-0400 Body temperature 98.29 [degF] Curtis Hernandez MD Work Phone: [facility] 07-31-2024 13:38-0400 Body weight 158.31 kg Curtis Hernandez MD Work Phone: [facility] 07-31-2024 13:38-0400 Diastolic blood pressure 95 mm[Hg] Curtis Hernandez MD Work Phone: [facility] 07-31-2024 13:38-0400 Heart rate 69 /min Curtis Hernandez MD Work Phone: [facility] 07-31-2024 13:38-0400 Respiratory rate 16 /min Curtis Hernandez MD Work Phone: [facility] 07-31-2024 13:38-0400 SaO2% (BldA) [Mass fraction] 93 % Curtis Hernandez MD Work Phone: [facility] 07-31-2024 13:38-0400 Systolic blood pressure 155 mm[Hg] Curtis Hernandez MD Work Phone: [facility] 07-27-2024 09:05-0400 Body temperature 97.6 [degF] Dr. Curtis Hernandez MD Work Phone: [facility] 07-27-2024 09:05-0400 Diastolic blood pressure 98 mm[Hg] Dr. Curtis Hernandez MD Work Phone: [facility] 07-27-2024 09:05-0400 Heart rate 64 /min Dr. Curtis Hernandez MD Work Phone: [facility] 07-27-2024 09:05-0400 Respiratory rate 18 /min Dr. Curtis Hernandez MD Work Phone: [facility] 07-27-2024 09:05-0400 SaO2% (BldA) [Mass fraction] 98 % Dr. Curtis Hernandez MD Work Phone: [facility] 07-27-2024 09:05-0400 Systolic blood pressure 139 mm[Hg] Dr. Curtis Hernandez MD Work Phone: [facility] 07-25-2024 11:52-0400 Body height 175.[address] Curtis Hernandez MD Work Phone: [facility] 07-25-2024 11:52-0400 Body weight [address] Curtis Hernandez MD Work Phone: [facility] 07-24-2024 14:48-0400 Body mass index (BMI) [Ratio] 50.8 kg/m2 Dr. Curtis Hernandez MD Work Phone: [facility] 07-24-2024 14:00-0400 Diastolic blood pressure 87 mm[Hg] Dr. Curtis Hernandez MD Work Phone: [facility] 07-24-2024 14:00-0400 Heart rate 64 /min Dr. Curtis Hernandez MD Work Phone: [facility] 07-24-2024 14:00-0400 Respiratory rate 18 /min Dr. Curtis Hernandez MD Work Phone: [facility] 07-24-2024 14:00-0400 SaO2% (BldA) [Mass fraction] 97 % Dr. Curtis Hernandez MD Work Phone: [facility] 07-24-2024 14:00-0400 Systolic blood pressure 157 mm[Hg] Dr. Curtis Hernandez MD Work Phone: [facility] 07-24-2024 12:23-0400 Body temperature 97.9 [degF] Dr. Curtis Hernandez MD Work Phone: [facility] 07-24-2024 07:45-0400 Body height 175.[address] Curtis Hernandez MD Work Phone: [facility] 07-24-2024 07:45-0400 Body mass index (BMI) [Ratio] 50.8 kg/m2 Dr. Curtis Hernandez MD Work Phone: [facility] 07-24-2024 07:45-0400 Body weight 156.[address] Curtis Hernandez MD Work Phone: [facility] 07-16-2024 13:42-0400 Diastolic blood pressure 85 mm[Hg] [address] [employer]ING PR[employer] OPERATOR Work Phone: [facility] 07-16-2024 13:42-0400 Heart rate 62 /min Peggy [address] [employer]ING PRESS OPERATOR Work Phone: [facility] 07-16-2024 13:42-0400 Respiratory rate 18 /min Peggy [address] INSERTING PRESS OPERATOR Work Phone: [facility] 07-16-2024 13:42-0400 SaO2% (BldA) [Mass fraction] 95 % [address] INSERTING PRESS OPERATOR Work Phone: [facility] 07-16-2024 13:42-0400 Systolic blood pressure 130 mm[Hg] Peggy Way INSERTING PRESS OPERATOR Work Phone: [facility] 07-05-2024 08:38-0400 SaO2% (BldA) [Mass fraction] 95 % Dr. Curtis Hernandez MD Work Phone: [facility] 07-05-2024 08:28-0400 Inhaled oxygen flow rate 1 L/min Dr. Curtis Hernandez MD Work Phone: [facility] 07-05-2024 08:00-0400 Body temperature 98.1 [degF] Dr. Curtis Hernandez MD Work Phone: [facility] 07-05-2024 08:00-0400 Diastolic blood pressure 88 mm[Hg] Dr. Curtis Hernandez MD Work Phone: [facility] 07-05-2024 08:00-0400 Heart rate 101 /min Dr. Curtis Hernandez MD Work Phone: [facility] 07-05-2024 08:00-0400 Respiratory rate 19 /min Dr. Curtis Hernandez MD Work Phone: [facility] 07-05-2024 08:00-0400 Systolic blood pressure 131 mm[Hg] Dr. Curtis Hernandez MD Work Phone: [facility] 07-05-2024 03:26-0400 Body mass index (BMI) [Ratio] 51 kg/m2 Dr. Curtis Hernandez MD Work Phone: [facility] 07-05-2024 03:26-0400 Body weight 156.[address] Curtis Hernandez MD Work Phone: [facility] 07-03-2024 13:00-0400 Body height 175.[address] Curtis Hernandez MD Work Phone: 9(049)520-471116 [place] [address] 07-02-2024 17:00-0400 Diastolic blood pressure 66 mm[Hg] Dr. Curtis Hernandez MD Work Phone: 2(804)934-511745 [place] [address] 07-02-2024 17:00-0400 Heart rate 68 /min Dr. Curtis Hernandez MD Work Phone: 7(670)073-831145 [place] [address] 07-02-2024 17:00-0400 Inhaled oxygen flow rate 4 L/min Dr. Curtis Hernandez MD Work Phone: 4(230)463-003045 [place] [address] 07-02-2024 17:00-0400 SaO2% (BldA) [Mass fraction] 90 % Dr. Curtis Hernandez MD Work Phone: 1(827)123-789545 [place] [address] 07-02-2024 17:00-0400 Systolic blood pressure 121 mm[Hg] Dr. Curtis Hernandez MD Work Phone: 4(336)001-965245 [place] [address] 07-02-2024 16:02-0400 Body temperature 98.6 [degF] Dr. Curtis Hernandez MD Work Phone: 2(223)408-588645 [place] [address] 07-02-2024 16:02-0400 Respiratory rate 18 /min Dr. Curtis Hernandez MD Work Phone: 0(822)378-731845 [place] [address] 07-02-2024 12:57-0400 Body mass index (BMI) [Ratio] 55.6 kg/m2 Dr. Curtis Hernandez MD Work Phone: 0(431)714-076445 [place] [address] 07-02-2024 12:57-0400 Body weight 170.[address] Curtis Hernandez MD Work Phone: 7(609)422-784545 [place] [address] 07-02-2024 12:44-0400 Body height 175.[address] Curtis Hernandez MD Work Phone: 2(276)295-580445 [place] [address] 06-14-2024 12:44-0400 Body mass index (BMI) [Ratio] 50.95 kg/m2 Paco Sears CNP Work Phone: [facility] 06-14-2024 12:44-0400 Body weight 156.5 kg Paco Sears INSERTING PRESS OPERATOR Work Phone: [facility] 06-14-2024 12:44-0400 Diastolic blood pressure 85 mm[Hg] Paco Sears INSERTING PRESS OPERATOR Work Phone: [facility] 06-14-2024 12:44-0400 Heart rate 71 /min Paco Sears INSERTING PRESS OPERATOR Work Phone: [facility] 06-14-2024 12:44-0400 Systolic blood pressure 130 mm[Hg] Paco Sears INSERTING PRESS OPERATOR Work Phone: [facility] 06-14-2024 11:37-0400 Heart rate 64 /min Curtis Hernandez MD Work Phone: [facility] 06-14-2024 11:19-0400 Body height 175.3 cm Curtis Hernandez MD Work Phone: [facility] 06-14-2024 11:19-0400 Body mass index (BMI) [Ratio] 50.95 kg/m2 Curtis Hernandez MD Work Phone: [facility] 06-14-2024 11:19-0400 Body weight 156.49 kg Curtis Hernandez MD Work Phone: [facility] 06-14-2024 11:19-0400 Diastolic blood pressure 73 mm[Hg] Curtis Hernandez MD Work Phone: [facility] 06-14-2024 11:19-0400 Respiratory rate 14 /min Curtis Hernandez MD Work Phone: [facility] 06-14-2024 11:19-0400 SaO2% (BldA) [Mass fraction] 94 % Curtis Hernandez MD Work Phone: [facility] 06-14-2024 11:19-0400 Systolic blood pressure 120 mm[Hg] Curtis Hernandez MD Work Phone: [facility] 06-04-2024 13:41-0400 Body temperature 97.7 [degF] Dr. Curtis Hernandez MD Work Phone: 6(144)[phone] [place] [address] 06-04-2024 13:41-0400 Diastolic blood pressure 75 mm[Hg] Dr. Curtis Hernandez MD Work Phone: 3(486)192-926589 [address] 06-04-2024 13:41-0400 Heart rate 67 /min Dr. Curtis Hernandez MD Work Phone: 5(560)252-168789 [address] 06-04-2024 13:41-0400 Respiratory rate 17 /min Dr. Curtis Hernandez MD Work Phone: 3(444)[phone] [place] [address] 06-04-2024 13:41-0400 SaO2% (BldA) [Mass fraction] 98 % Dr. Curtis Hernandez MD Work Phone: 9(942)[phone] [address] 06-04-2024 13:41-0400 Systolic blood pressure 117 mm[Hg] Dr. Curtis Hernandez MD Work Phone: 7(769)032-107089 [address] 06-04-2024 03:42-0400 Body mass index (BMI) [Ratio] 51.8 kg/m2 Dr. Curtis Hernandez MD Work Phone: 9(270)412-060289 [address] 06-04-2024 03:42-0400 Body weight 159.[address] Curtis Hernandez MD Work Phone: 4(275)477-694289 [address] 06-03-2024 14:00-0400 Diastolic blood pressure 108 mm[Hg] Dr. Curtis Hernandez MD Work Phone: 8(060)523-565516 [place] [address] 06-03-2024 14:00-0400 Heart rate 146 /min Dr. Curtis Hernandez MD Work Phone: 5(038)[phone] [address] 06-03-2024 14:00-0400 Respiratory rate 20 /min Dr. Curtis Hernandez MD Work Phone: 3(392)865-644989 [address] 06-03-2024 14:00-0400 SaO2% (BldA) [Mass fraction] 96 % Dr. Curtis Hernandez MD Work Phone: [facility] 06-03-2024 14:00-0400 Systolic blood pressure 153 mm[Hg] Dr. Curtis Hernandez MD Work Phone: [facility] 06-03-2024 01:42-0400 Body temperature 97.9 [degF] Dr. Curtis Hernandez MD Work Phone: [facility] 06-03-2024 00:49-0400 Body mass index (BMI) [Ratio] 52.9 kg/m2 Dr. Curtis Hernandez MD Work Phone: [facility] 06-03-2024 00:49-0400 Body weight 162.[address] Curtis Hernandez MD Work Phone: [facility] 06-02-2024 23:08-0400 Body height 175.[address] Curtis Hernandez MD Work Phone: [facility] 03-04-2024 14:44-0500 Diastolic blood pressure 90 mm[Hg] Paco Sears INSERTING PRESS OPERATOR Work Phone: [facility] 03-04-2024 14:44-0500 Systolic blood pressure 142 mm[Hg] Paco Sears INSERTING PRESS OPERATOR Work Phone: [facility] 03-04-2024 14:05-0500 Body mass index (BMI) [Ratio] 50.95 kg/m2 Paco Sears INSERTING PRESS OPERATOR Work Phone: [facility] 03-04-2024 14:05-0500 Body weight 156.49 kg Paco Sears INSERTING PRESS OPERATOR Work Phone: [facility] 12-27-2023 08:34-0500 Diastolic blood pressure 89 mm[Hg] Peggy Way INSERTING PRESS OPERATOR Work Phone: [facility] 12-27-2023 08:34-0500 Heart rate 78 /min Peggy Way INSERTING PRESS OPERATOR Work Phone: [facility] 12-27-2023 08:34-0500 Respiratory rate 16 /min Peggy Way INSERTING PRESS OPERATOR Work Phone: [facility] 12-27-2023 08:34-0500 SaO2% (BldA) [Mass fraction] 97 % Peggy [address] INSERTING PRESS OPERATOR Work Phone: [facility] 12-27-2023 08:34-0500 Systolic blood pressure 137 mm[Hg] Peggy Way INSERTING PRESS OPERATOR Work Phone: [facility] 12-13-2023 15:40-0500 Diastolic blood pressure 92 mm[Hg] Alphonso Degrootn Jr., DPM Work Phone: [facility] 12-13-2023 15:40-0500 Heart rate 84 /min Alphonso Leahy Jr., DPM Work Phone: [facility] 12-13-2023 15:40-0500 Systolic blood pressure 166 mm[Hg] Alphonso Armond Jr., DPM Work Phone: [facility] 12-13-2023 15:03-0500 Body temperature 98.29 [degF] Alphonso Armond Jr., DPM Work Phone: [facility] 12-01-2023 10:03-0400 Diastolic blood pressure 107 mm[Hg] Paco Sears INSERTING PRESS OPERATOR Work Phone: [facility] 12-01-2023 10:03-0400 Systolic blood pressure 187 mm[Hg] Paco Sears INSERTING PRESS OPERATOR Work Phone: [facility] 12-01-2023 09:53-0400 Body mass index (BMI) [Ratio] 50.15 kg/m2 Paco Sears INSERTING PRESS OPERATOR Work Phone: [facility] 12-01-2023 09:53-0400 Body weight 154.04 kg Paco Sears INSERTING PRESS OPERATOR Work Phone: [facility] 12-01-2023 09:53-0400 Heart rate 76 /min Paco Sears INSERTING PRESS OPERATOR Work Phone: [facility] 11-10-2023 13:44-0400 Body height 175.3 cm Curtis Hernandez MD Work Phone: [facility] 11-10-2023 13:44-0400 Body mass index (BMI) [Ratio] 45.63 kg/m2 Curtis Hernandez MD Work Phone: [facility] 11-10-2023 13:44-0400 Body temperature 98.2 [degF] Curtis Hernandez MD Work Phone: [facility] 11-10-2023 13:44-0400 Body weight 140.16 kg Curtis Hernandez MD Work Phone: [facility] Comment on above: pt reported 11-10-2023 13:44-0400 Diastolic blood pressure 79 mm[Hg] Curtis Hernandez MD Work Phone: [facility] 11-10-2023 13:44-0400 Heart rate 88 /min Curtis Hernandez MD Work Phone: [facility] 11-10-2023 13:44-0400 Respiratory rate 16 /min Curtis Hernandez MD Work Phone: [facility] 11-10-2023 13:44-0400 SaO2% (BldA) [Mass fraction] 94 % Curtis Hernandez MD Work Phone: [facility] 11-10-2023 13:44-0400 Systolic blood pressure 114 mm[Hg] Curtis Hernandez MD Work Phone: [facility] 10-25-2023 11:15-0400 Body height 172.7 cm Reji Curran MD Work Phone: [facility] 10-25-2023 11:15-0400 Body mass index (BMI) [Ratio] 50.48 kg/m2 Reji Curran MD Work Phone: [facility] 10-25-2023 11:15-0400 Body temperature 98.01 [degF] Reji Curran MD Work Phone: [facility] 10-25-2023 11:15-0400 Body weight 150.59 kg Reji Curran MD Work Phone: [facility] 10-25-2023 11:15-0400 Diastolic blood pressure 65 mm[Hg] Reji Curran MD Work Phone: [facility] 10-25-2023 11:15-0400 Heart rate 90 /min Reji Curran MD Work Phone: [facility] 10-25-2023 11:15-0400 Respiratory rate 16 /min Reji Curran MD Work Phone: [facility] 10-25-2023 11:15-0400 SaO2% (BldA) [Mass fraction] 97 % Reji Curran MD Work Phone: [facility] 10-25-2023 11:15-0400 Systolic blood pressure 102 mm[Hg] Reji Curran MD Work Phone: [facility] 10-06-2023 13:16-0400 Body height 180.3 cm Curtis Hernandez MD Work Phone: [facility] 10-06-2023 13:16-0400 Body mass index (BMI) [Ratio] 41.98 kg/m2 Curtis Hernandez MD Work Phone: [facility] 10-06-2023 13:16-0400 Body temperature 98.01 [degF] Curtis Hernandez MD Work Phone: [facility] 10-06-2023 13:16-0400 Body weight 136.53 kg Curtis Hernandez MD Work Phone: [facility] Comment on above: pt reported 10-06-2023 13:16-0400 Diastolic blood pressure 82 mm[Hg] Curtis Hernandez MD Work Phone: [facility] 10-06-2023 13:16-0400 Heart rate 80 /min Curtis Hernandez MD Work Phone: [facility] 10-06-2023 13:16-0400 Respiratory rate 16 /min Curtis Hernandez MD Work Phone: [facility] 10-06-2023 13:16-0400 SaO2% (BldA) [Mass fraction] 96 % Curtis Hernandez MD Work Phone: [facility] 10-06-2023 13:16-0400 Systolic blood pressure 129 mm[Hg] Curtis Hernandez MD Work Phone: [facility] 09-11-2023 15:18-0400 Body temperature 97.9 [degF] Noé Lizarraga MD Work Phone: [facility] 09-11-2023 15:18-0400 Diastolic blood pressure 79 mm[Hg] Noé Lizarraga MD Work Phone: [facility] 09-11-2023 15:18-0400 Heart rate 70 /min Noé Lizarraga MD Work Phone: [facility] 09-11-2023 15:18-0400 Respiratory rate 16 /min Noé Lizarraga MD Work Phone: [facility] 09-11-2023 15:18-0400 SaO2% (BldA) [Mass fraction] 95 % Noé Lizarraga MD Work Phone: [facility] 09-11-2023 15:18-0400 Systolic blood pressure 165 mm[Hg] Noé Lizarraga MD Work Phone: [facility] 09-09-2023 07:18-0400 Body height 172.7 cm Noé Lizarraga MD Work Phone: [facility] 09-09-2023 07:18-0400 Body mass index (BMI) [Ratio] 45.62 kg/m2 Noé Lizarraga MD Work Phone: [facility] 09-09-2023 07:18-0400 Body weight 136.1 kg Noé Lizarraga MD Work Phone: [facility] 04-08-2022 14:17-0500 Diastolic blood pressure 97 mm[Hg] Curtis Hernandez MD Work Phone: [facility] 04-08-2022 14:17-0500 Heart rate 96 /min Curtis Hernandez MD Work Phone: [facility] 04-08-2022 14:17-0500 Systolic blood pressure 142 mm[Hg] Curtis Hernandez MD Work Phone: [facility] 04-08-2022 14:11-0500 Body height 180.3 cm Curtis Hernandez MD Work Phone: [facility] 04-08-2022 14:11-0500 Body mass index (BMI) [Ratio] 41.98 kg/m2 Curtis Hernandez MD Work Phone: [facility] 04-08-2022 14:11-0500 Body temperature 97.81 [degF] Curtis Hernandez MD Work Phone: [facility] 04-08-2022 14:11-0500 Body weight 136.53 kg Curtis Hernandez MD Work Phone: [facility] 04-08-2022 14:11-0500 Respiratory rate 16 /min Curtis Hernandez MD Work Phone: [facility] 04-08-2022 14:11-0500 SaO2% (BldA) [Mass fraction] 95 % Curtis Hernandez MD Work Phone: [facility] 12-15-2021 08:16-0500 Diastolic blood pressure 91 mm[Hg] Curtis Hernandez MD Work Phone: [facility] 12-15-2021 08:16-0500 Heart rate 98 /min Curtis Hernandez MD Work Phone: [facility] 12-15-2021 08:16-0500 Systolic blood pressure 143 mm[Hg] Curtis Hernandez MD Work Phone: [facility] 12-15-2021 08:10-0500 Body height 180.3 cm Curtis Hernandez MD Work Phone: [facility] 12-15-2021 08:10-0500 Body mass index (BMI) [Ratio] 42.12 kg/m2 Curtis Hernandez MD Work Phone: [facility] 12-15-2021 08:10-0500 Body temperature 98.1 [degF] Curtis Hernandez MD Work Phone: [facility] 12-15-2021 08:10-0500 Body weight 136.99 kg Curtis Hernandez MD Work Phone: [facility] 12-15-2021 08:10-0500 Respiratory rate 16 /min Curtis Hernandez MD Work Phone: [facility] 12-15-2021 08:10-0500 SaO2% (BldA) [Mass fraction] 96 % Curtis Hernandez MD Work Phone: [facility] 10-08-2021 12:35-0400 Diastolic blood pressure 85 mm[Hg] Curtis Hernandez MD Work Phone: [facility] 10-08-2021 12:35-0400 Heart rate 94 /min Curtis Hernandez MD Work Phone: [facility] 10-08-2021 12:35-0400 Systolic blood pressure 148 mm[Hg] Curtis Hernandez MD Work Phone: [facility] 10-08-2021 12:29-0400 Body height 180.3 cm Curtis Hernandez MD Work Phone: [facility] 10-08-2021 12:29-0400 Body mass index (BMI) [Ratio] 42.12 kg/m2 Curtis Hernandez MD Work Phone: [facility] 10-08-2021 12:29-0400 Body temperature 98.01 [degF] Curtis Hernandez MD Work Phone: [facility] 10-08-2021 12:29-0400 Body weight 136.99 kg Curtis Hernandez MD Work Phone: [facility] 10-08-2021 12:29-0400 Respiratory rate 16 /min Curtis Hernandez MD Work Phone: [facility] 10-08-2021 12:29-0400 SaO2% (BldA) [Mass fraction] 94 % Curtis Hernandez MD Work Phone: [facility] 08-27-2021 03:45-0400 Diastolic blood pressure 112 mm[Hg] No Pcp Required [facility] 08-27-2021 03:45-0400 Heart rate 94 /min No Pcp Required [facility] 08-27-2021 03:45-0400 Respiratory rate 18 /min No Pcp Required [facility] 08-27-2021 03:45-0400 SaO2% (BldA) [Mass fraction] 98 % No Pcp Required [facility] 08-27-2021 03:45-0400 Systolic blood pressure 165 mm[Hg] No Pcp Required [facility] 08-27-2021 02:43-0400 Body height 180.3 cm No Pcp Required [facility] 08-27-2021 02:43-0400 Body temperature 97.34 [degF] No Pcp Required [facility] 08-27-2021 02:43-0400 Body weight 161.4 kg No Pcp Required [facility] 03-21-2021 18:11-0500 Body mass index (BMI) [Ratio] 52.4 kg/m2 MD Toni Albarado MD [facility] 03-21-2021 18:11-0500 Body weight 161 kg MD Toni Albarado MD [facility] 04-26-2020 15:0400 BMI (Body Mass Index) 52.9 kg/m2 Donaldo Shah [facility] 04-26-2020 15:040 Body weight 167.3 kg Donaldo Shah [facility] Encounters Encounter Date Encounter Type Care Provider Facility Start: 09-24-2024 ambulatory Curtis Del Rosario ty:[facility] Start: 09-06-2024 End: 09-06-2024 Refill Paco Sears INSERTING PRESS OPERATOR Work Phone: [facility] Comment on above: Type 2 diabetes ned itus without complication, without long- term current use of insulin (HCC) Start: 08-16-2024 End: 08-16-[address] Maxwell Ricardo MD -[facility] Work Phone: Start: 08-16-2024 End: 08-16-[address] Curtis Hernandez MD Work Phone: -[facility] Start: 08-15-2024 End: 08-15-2024 Refill Paco Sears INSERTING PRESS OPERATOR Work Phone: [facility] Comment on above: Type 2 diabetes ned itus without complication, without long- term current use of insulin (HCC) (Primary Dx) Start: 07-31-2024 End: 08-01-2024 Refill Paco Sears INSERTING PRESS OPERATOR Work Phone: [facility] Comment on above: Type 2 diabetes ned itus without complication, without long- term current use of insulin (HCC) Start: 07-31-2024 End: 07-31-2024 Office outpatient visit 25 minutes Curits Hernandez MD Work Phone: [facility] Comment on above: Essential hypertensi on, benign (Primary Dx); Pure hypercholesterolemia; Paroxysmal atrial fibrillation (HCC); Congestive heart failure, unspecified HF chronicity, unspecified heart failure type (HCC) Start: 07-27-2024 Non-patient / Non-visit Dr. Bal James MD -[facility] Start: 07-26-2024 Non-patient / Non-visit Dr. Bal James MD [facility] Start: 07-25-2024 ambulatory Curtis Brunicardi Facili ty:[facility] Start: 07-25-2024 Non-patient / Non-visit Dr. Rufina Ricardo MD -[facility] Start: 07-24-2024 Non-patient / Non-visit Dr. Rufina Ricardo MD -[facility] Start: 07-24-2024 ambulatory Curtis Brunicardi Facili ty:[facility] Start: 07-24-2024 End: 07-27-2024 Evaluation and management of inpatient Dr. Maxwell Ricardo MD -[facility] Work Phone: Start: 07-16-2024 End: 07-16-2024 Office outpatient visit 25 minutes [facility] Work Phone: [facility] Comment on above: Paroxysmal atrial fi brillation (HCC) (Primary Dx); Seizure (HCC) Start: 07-16-2024 End: 07-16-2024 [facility] Start: 07-05-2024 Non-patient / Non-visit Dr. Verito SALEH [facility] Work Phone: Start: 07-04-2024 Non-patient / Non-visit Dr. Verito SALEH [facility] Work Phone: Start: 07-03-2024 Non-patient / Non-visit Dr. Verito SALE[facility] Work Phone: Start: 07-02-2024 Non-patient / Non-visit Dr. Des lopez DO [facility] Work Phone: Start: 07-02-2024 ambulatory Crutis Brunjuani Facili ty:[facility] Start: 07-02-2024 End: 07-05-2024 Evaluation and management of inpatient Dr. Des Jopperi DO -[facility] Work Phone: Start: 06-14-2024 End: 06-14-2024 ambulatory PCAOJACOBO COCHRAN [facility] Ambulatory Start: 06-14-2024 End: 06-14-2024 ambulatory CURTIS ABBY [facility] Ambulatory Start: 06-14-2024 End: 06-14-2024 Office outpatient visit 25 minutes Paco Sears INSERTING PRESS OPERATOR Work Phone: [facility] Comment on above: Type 2 diabetes ned itus without complication, without long- term current use of insulin (HCC) Pulmonary embolism w ith infarction (HCC) (Primary Dx); Paroxysmal atrial fibrillation (HCC); Pure hypercholesterolemia; Type 2 diabetes mellitus without complication, without long-term current use of insulin (HCC) Start: 06-14-2024 ambulatory PACOJACOBO COCHRAN [facility] Start: 06-04-2024 Non-patient / Non-visit Dr. Kaiden bustillos MD -[place] [facility] Work Phone: Start: 06-03-2024 ambulatory Anna [facility] Facility:[facility] Start: 06-03-2024 Non-patient / Non-visit Dr. Anna wall MD -[facility] Start: 06-03-2024 ambulatory Kaiden Stacy ty:[facility] Start: 06-03-2024 End: 06-04-2024 Evaluation and management of inpatient Dr. Kaiden Zafar DO -[facility] Unit Work Phone: Start: 06-03-2024 ambulatory CURTIS MORA [facility] Ambulatory Start: 03-15-2024 ambulatory CURTIS MORA [facility] Ambulatory Start: 03-04-2024 End: 03-04-2024 ambulatory CURTIS ABBY [facility] Ambulatory Start: 03-04-2024 End: 03-04-2024 Office outpatient visit 25 minutes Paco Sears INSERTING PRESS OPERATOR Work Phone: [facility] Comment on above: Type 2 diabetes ned itus without complication, without long- term current use of insulin (HCC) (Primary Dx); Pure hypercholesterolemia Start: 02-09-2024 ambulatory [facility] Start: 01-19-2024 End: 01-19-2024 Refill Paco Sears INSERTING PRESS OPERATOR Work Phone: [facility] Comment on above: Type 2 diabetes ned itus without complication, without long- term current use of insulin (HCC) (Primary Dx) Start: 12-27-2023 End: 12-27-2023 Office outpatient visit [address] INSERTING PRESS OPERATOR Work Phone: [facility] Comment on above: Seizure (HCC) (Prima ry Dx); Vision loss Start: 12-27-2023 End: 12-27-2023 ambulatory [facility] Start: 12-13-2023 End: 12-13-2023 Office outpatient visit 15 minutes Alphonso Leahy DPM Work Phone: [facility] Comment on above: Ulcer of right foot, unspecified ulcer stage (HCC) (Primary Dx) Start: 12-13-2023 End: 12-13-2023 ambulatory ALPHONSO LEAHY JR[facility] Start: 12-01-2023 End: 12-01-2023 Refill Paco Sears INSERTING PRESS OPERATOR Work Phone: [facility] [place] Comment on above: Type 2 diabetes ned itus without complication, without long- term current use of insulin (HCC) (Primary Dx) Start: 12-01-2023 End: 12-01-2023 Office outpatient new 45 minutes Curtis Hernandez MD Work Phone: [facility] Comment on above: Type 2 diabetes ned itus without complication, without long- term current use of insulin (HCC) (Primary Dx); Essential hypertension, benign Start: 12-01-2023 End: 12-01-2023 ambulatory PACO SEARS [facility] Start: 11-29-2023 End: 11-29-[address] CNP Work Phone: [facility] Start: 11-22-2023 End: 11-22-2023 ambulatory ALPHONSO ARMOND MAYO [facility] Ambulatory Start: 11-10-2023 End: 11-10-2023 ambulatory CURTIS HERNANDEZ [facility] Ambulatory Start: 11-10-2023 End: 11-10-2023 Office outpatient visit 15 minutes Curtis Hernandez MD Work Phone: [facility] Comment on above: Ulcer of right foot, unspecified ulcer stage (HCC) (Primary Dx); Type 2 diabetes mellitus without complication, without long-term current use of insulin (HCC) Start: 11-03-2023 End: 11-05-2023 Evaluation and management of inpatient [facility] Start: 11-01-2023 End: 11-01-2023 Emergency department patient visit [facility] Facility:[facility] Start: 10-25-2023 End: 10-25-2023 Office outpatient visit 40 minutes Reji Curran MD Work Phone: [facility] Comment on above: Cerebrovascular acci dent (CVA), unspecified mechanism (Primary Dx); Seizure; Class 3 severe obesity due to excess calories with serious comorbidity and body mass index (BMI) of 50.0 to 59.9 in adult; Hypersomnia Start: 10-25-2023 ambulatory CHRISTOPHER Del Rosario ty:[facility] Start: 10-06-2023 End: 10-06-2023 Office outpatient visit 25 minutes Curtis Hernandez MD Work Phone: [facility] Comment on above: Type 2 diabetes ned itus without complication, without long- term current use of insulin (HCC) (Primary Dx); Essential hypertension, benign; Pure hypercholesterolemia; Seizure disorder (HCC); Morbid obesity with body mass index (BMI) of 40.0 or higher (HCC) Start: 10-06-2023 End: 10-06-2023 ambulatory CURTIS HERNANDEZ [facility] Start: 09-08-2023 End: 09-11-2023 Evaluation and management of inpatient Noé Lizarraga MD Work Phone: [facility] Comment on above: Pneumoperitoneum Start: 09-08-2023 ambulatory CURTIS HERNANDEZ [facility] Ambulatory Start: 04-09-2022 Orders Only Curtis Hernandez MD Work Phone: [facility] Comment on above: Type 2 diabetes ned itus without complication, without long- term current use of insulin (HCC) (Primary Dx) Start: 04-08-2022 End: 04-08-2022 Office outpatient visit 25 minutes Curtis Hernandez MD Work Phone: [facility] Comment on above: Essential hypertensi on, benign (Primary Dx); Moderate recurrent major depression (HCC); Type 2 diabetes mellitus without complication, without long-term current use of insulin (HCC); Muscle spasm; Pure hypercholesterolemia Start: 03-28-2022 Orders Only Curtis Hernandez MD Work Phone: [facility] Comment on above: Colon cancer screeni ng Start: 12-15-2021 End: 12-15-2021 Office outpatient visit 25 minutes Curtis Hernandez MD Work Phone: [facility] Comment on above: Type 2 diabetes ned itus without complication, without long- term current use of insulin (HCC) (Primary Dx); Moderate recurrent major depression (HCC); Muscle spasm; Essential hypertension, benign; Ataxia Start: 10-08-2021 End: 10-08-2021 Office outpatient new 45 minutes Curtis Hernandez MD Work Phone: [facility] Comment on above: Type 2 diabetes ned itus without complication, without long- term current use of insulin (HCC) (Primary Dx); Essential hypertension, benign; Pure hypercholesterolemia; Acquired hypothyroidism; Chronic gout of multiple sites, unspecified cause; Moderate recurrent major depression (HCC); Muscle spasm; Incontinence of feces, unspecified fecal incontinence type Start: 08-27-2021 End: 08-27-2021 Emergency department patient visit Yovany Goff [facility] Emergency 15 [address] Shah [facility] Procedures Date Procedure Procedure Detail Performing Clinician Start: 07-26-[address] Curtis Hernandez MD Work Phone: Start: 07-24-2024 Urnls dip stick/tabl et reagent auto microscopy Dr. Curtis Hernandez MD Work Phone: Start: 07-24-2024 CT of abdomen and pe lvis with oral contrast Dr. Curtis Hernandez MD Work Phone: Start: 07-24-[address] Curtis Hernandez MD Work Phone: Start: 07-24-2024 Computed tomography of abdomen and pelvis with intravenous contrast Dr. Curtis Hernandez MD Work Phone: Start: 07-05-[address] Curtis Hernandez MD Work Phone: Start: 07-04-2024 Serum inorganic phos phate measurement Dr. Curtis Hernandez MD Work Phone: Start: 07-02-2024 SARS-CoV-2, Influenz a & RSV (PCR) Dr. Curtis Hernandez MD Work Phone: Start: 07-02-2024 CT angiography of ch est with contrast Dr. Curtis Hernandez MD Work Phone: Start: 07-02-[address] Curtis Hernandez MD Work Phone: Start: 06-04-[address] Curtis Hernandez MD Work Phone: Start: 06-04-2024 Serum inorganic phos phate measurement Dr. Curtis Hernandez MD Work Phone: Start: 06-03-2024 CT angiography of ch est with contrast Dr. Curtis Hernandez MD Work Phone: Start: 06-03-2024 Targeted analysis fo r gene mutation Dr. Curtis Hernandez MD Work Phone: Comment on above: Result: NEGATIVE for the JAK2 V617F mutation.Interpretation: The G to T nucleotide change encoding [id number] mutation was not detected. This result does not ruleout the presence of the JAK2 mutation at a level below thesensitivity of detection of this assay, or the presence ofother mutations within JAK2 not detected by this assay.This result does not rule out a diagnosis of polycythemiavera, essential thrombocythemia or idiopathicmyelofibrosis as the V617F mutation is not detected inall patients with these disorders. Start: 03-04-2024 Hemoglobin glycosylated a1c Paco Sears [facility] Work Phone: Start: 09-11-2023 CARDIAC RHYTHM Other Ot her Start: 09-11-2023 Glucose measurement, blood Chencho Perry MD Work Phone: Start: 09-11-2023 Glucose measurement, blood Chencho Perry MD Work Phone: Start: 09-11-2023 Assay of magnesium Jord rufina Majano MD Work Phone: Start: 09-10-2023 Glucose measurement, blood Brock Goetz MD Work Phone: Start: 09-10-2023 Glucose measurement, blood Brock Goetz MD Work Phone: Start: 09-10-2023 Glucose measurement, blood Brock Goetz MD Work Phone: Start: 09-10-2023 Glucose measurement, blood Brock Goetz MD Work Phone: Start: 09-10-2023 Assay of magnesium Jord rufina Majano MD Work Phone: Start: 09-09-2023 Glucose measurement, blood Brock Goetz MD Work Phone: Start: 09-09-2023 Glucose measurement, blood Brock Goetz MD Work Phone: Start: 09-09-2023 Glucose measurement, blood Brock Goetz MD Work Phone: Start: 09-09-2023 Glucose measurement, blood Brock Goetz MD Work Phone: Start: 09-09-2023 Glucose measurement, blood Chencho Perry MD Work Phone: Start: 09-09-2023 Glucose measurement, blood Chencho Perry MD Work Phone: Start: 09-09-2023 End: 09-09-2023 Assay of magnesium Harsh Majano MD Work Phone: Start: 09-08-2023 End: 09-08-2023 Mri brain brain stem w/o contrast material Ritakaylavlad Peñav [employer] DES[employer]ING PRESS OPERATOR Work Phone: Start: 09-08-2023 Glucose measurement, blood Yue Singh MD Work Phone: Start: 09-08-2023 Glucose measurement, blood Chencho Perry MD Work Phone: Start: 09-08-2023 Echo tthrc r-t 2d w/ wom-mode compl spec&colr d Kavita Cast MD Work Phone: Start: 09-08-2023 Hemoglobin glycosylated a1c Thomas Cummings [employer] DESK H[employer]ING PRESS OPERATOR Work Phone: Start: 09-08-2023 Mri brain brain stem w/o contrast material Kavita Cast MD Work Phone: Start: 09-08-2023 IP CONSULT TO SPEECH THERAPY Thomas Cummings [employer] DES[employer] H[employer]ING PRESS OPERATOR Work Phone: Start: 09-08-2023 Lipid 1996 panel - S latia or Plasma Noé Lizarraga MD Work Phone: Start: 09-08-2023 Radiologic exam ches t single view Kavita Cast MD Work Phone: Start: 09-08-2023 Bilirubin direct Liv Cast MD Work Phone: Start: 09-08-2023 CBC AND ELECTRONIC DIFF Kavita Cast MD Work Phone: Start: 09-08-2023 Complete blood count with white cell differential, automated Kavita Cast MD Work Phone: Start: 09-08-2023 Lipid panel Kavita Cast MD Work Phone: Start: 03-15-2022 Ophthalmic examinati on and evaluation Curtis Hernandez MD Work Phone: Start: 12-15-2021 Microalbumin [Mass/v olume] in Urine by Test strip Curtis Hernandez MD Work Phone: Plan of Treatment Date Care Activity Detail Author Start: 09-07-2028 Lipid panel LIPID SCREENING [facility] Start: 07-16-2025 Depression screening using PHQ-9 (Patient Health Questionnaire 9) score Depression Screening/Follow-Up (PHQ-2/9) [facility] Start: 06-14-2025 Diabetic foot examination Diabetic Foot Exam [facility] Start: 03-14-2025 Glaucoma screening Diabetic Eye Exam [facility] Start: 03-04-2025 Diabetic foot examination Diabetic Foot Exam [facility] Start: 02-07-2025 Glaucoma screening Diabetic Eye Exam [facility] Start: 01-16-2025 End: 01-16-2025 Patient encounter procedure 01/16/2025 1:45 PM EST Office Visit [facility] [address] [facility] Office Building, 2nd [place] [id number] [address], INSERTING PRESS OPERATOR [address] [address] [facility] Start: 12-26-2024 Depression screening using PHQ-9 (Patient Health Questionnaire 9) score Depression Screening/Follow-Up (PHQ-2/9) [facility] Start: 11-30-2024 Diabetic foot examination Diabetic Foot Exam [facility] Start: 11-02-2024 eGFR Diabetes eGFR Diabetes [facility] Start: 11-02-2024 Urine screening for protein eGFR Diabetes [facility] Start: 10-18-2024 End: 10-18-2024 Patient encounter procedure 10/18/2024 1:45 PM EDT Office Visit [facility] [address] [place] [address] Curtis Hernandez MD [address] [address] [facility] Start: 10-07-2024 Influenza vaccination [facility] Start: 09-27-2024 End: 09-27-2024 Patient encounter procedure 09/27/2024 9:15 AM EDT Office Visit [facility] Phys[facility] [address] [place] [phone] Paco Sears, INSERTING PRESS OPERATOR [address] [place] [address] [facility] Start: 09-07-2024 Lipid panel LIPIDS [facility] Start: 09-02-2024 Hemoglobin A1c measurement A1C [facility] Start: 08-14-2024 End: 08-14-2024 Patient encounter procedure 08/14/2024 8:30 AM EDT Office Visit [facility] [address] [place] [address] Curtis Hernandez MD [address] [address] [facility] Start: 07-27-2024 Patient discharge [facility] Start: 07-26-2024 Referral to occupational therapist [facility] Start: 07-26-2024 Referral to service [facility] Start: 07-25-2024 Following clinical pathway protocol [facility] Start: 07-25-2024 [facility] Start: 07-24-2024 Following clinical pathway protocol [facility] Start: 07-24-2024 Hospital admission, emergency, from emergency room, medical nature [facility] Start: 07-24-2024 Following clinical pathway protocol [facility] Start: 07-24-2024 Taking patient vital signs [facility] Start: 07-24-2024 [facility] Start: 07-24-2024 Admission procedure [facility] Start: 07-24-2024 Consultation [facility] Start: 07-24-2024 [facility] Start: 07-07-2024 Complete blood count [facility] Start: 07-05-2024 Patient discharge [facility] Start: 07-03-2024 End: 07-04-2024 [facility] Start: 07-02-2024 Following clinical pathway protocol [facility] Start: 07-02-2024 Ambulation without limitation [facility] Start: 07-02-2024 Assessment of risk of venous thromboembolism [facility] Start: 07-02-2024 Care regimes management [facility] Start: 07-02-2024 Elevation of affected extremity [facility] Start: 07-02-2024 Insertion of catheter into peripheral vein [facility] Start: 07-02-2024 Measuring intake and output [facility] Start: 07-02-2024 Notification of physician [facility] Start: 07-02-2024 Oxygen therapy [facility] Start: 07-02-2024 Patient education [facility] Start: 07-02-2024 Patient referral to dietitian [facility] Start: 07-02-2024 Providing care according to standard [facility] Start: 07-02-2024 End: 07-02-2024 [facility] Start: 07-02-2024 Verification routine [facility] Start: 07-02-2024 Admission procedure [facility] Start: 07-02-2024 Hospital admission, emergency, from emergency room, medical nature [facility] Start: 07-02-2024 [facility] Start: 06-14-2024 End: 06-14-2024 Patient encounter procedure 06/14/2024 2:00 PM EDT Office Visit [facility] [address] [place] [address] Paco Sears, [address] [address] [facility] Start: 06-04-2024 Sleep apnea assessment [facility] Start: 06-04-2024 Patient discharge [facility] Start: 06-04-2024 [facility] Start: 06-04-2024 Referral to occupational therapist [facility] Start: 06-03-2024 End: 06-04-2024 Referral to service [facility] Start: 06-03-2024 Care planning and problem solving actions [facility] Start: 06-03-2024 Care planning and problem solving actions [facility] Start: 06-03-2024 Following clinical pathway protocol [facility] Start: 06-03-2024 Assessment of risk of venous thromboembolism [facility] Start: 06-03-2024 Care regimes management [facility] Start: 06-03-2024 Incentive spirometry [facility] Start: 06-03-2024 Insertion of catheter into peripheral vein [facility] Start: 06-03-2024 Measuring intake and output [facility] Start: 06-03-2024 Notification of physician [facility] Start: 06-03-2024 Oxygen therapy [facility] Start: 06-03-2024 Providing care according to standard [facility] Start: 06-03-2024 Provision of activity privileges [facility] Start: 06-03-2024 End: 06-03-2024 [facility] Start: 06-03-2024 Verification routine [facility] Start: 06-03-2024 Admission procedure [facility] Start: 06-03-2024 Hospital admission, emergency, from emergency room, medical nature [facility] Start: 06-02-2024 [facility] Start: 06-02-2024 Hemoglobin A1c measurement A1C [facility] Start: 03-10-2024 Hemoglobin A1c measurement HBA1C TEST [facility] Start: 03-01-2024 End: 03-01-2024 Patient encounter procedure 03/01/2024 2:00 PM EST Office Visit [facility] Phys[facility] [address] [place] [phone] Paco Sears, INSERTING PRESS OPERATOR [address] [place] [address] [facility] Start: 02-07-2024 End: 12-01-2024 Complete blood count with white cell differential, manual CBC and Differential Lab Routine Type 2 diabetes mellitus without complication, without long-term current use of insulin (HCC) Expected: 02/07/2024, Expires: 12/01/2024 [facility] Comment on above: Expected: 02/07/2024, Expires: Start: 02-07-2024 End: 12-01-2024 Comprehensive metabolic 2000 panel - Serum or Plasma Comprehensive Metabolic Panel Lab Routine Type 2 diabetes mellitus without complication, without long-term current use of insulin (HCC) Expected: 02/07/2024, Expires: 12/01/2024 [facility] Work Phone: Comment on above: Expected: 02/07/2024, Expires: Start: 02-07-2024 End: 12-01-2024 Hemoglobin A1c/Hemoglobin.total in Blood Hemoglobin A1c Lab Routine Type 2 diabetes mellitus without complication, without long-term current use of insulin (HCC) Expected: 02/07/2024, Expires: 12/01/2024 [facility] Comment on above: Expected: 02/07/2024, Expires: Start: 02-07-2024 End: 12-01-2024 Lipid 1996 panel - Serum or Plasma Lipid Panel Lab Routine Type 2 diabetes mellitus without complication, without long-term current use of insulin (HCC) Expected: 02/07/2024, Expires: 12/01/2024 [facility] Comment on above: Expected: 02/07/2024, Expires: Start: 02-07-2024 End: 12-01-2024 Measurement of thyroperoxidase antibody Thyroid peroxidase antibody (TPO) Lab Routine Type 2 diabetes mellitus without complication, without long-term current use of insulin (HCC) Expected: 02/07/2024, Expires: 12/01/2024 [facility] Comment on above: Expected: 02/07/2024, Expires: Start: 02-07-2024 End: 11-30-2024 Microalbumin measurement, urine, quantitative Microalbumin/Creatinine Ratio, UR Random Lab Routine Type 2 diabetes mellitus without complication, without long-term current use of insulin (HCC) Expected: 02/07/2024, Expires: 11/30/2024 [facility] Comment on above: Expected: 02/07/2024, Expires: Start: 02-07-2024 End: 12-01-2024 Thyrotropin [Units/volume] in Serum or Plasma TSH Lab Routine Type 2 diabetes mellitus without complication, without long-term current use of insulin (HCC) Expected: 02/07/2024, Expires: 12/01/2024 [facility] Comment on above: Expected: 02/07/2024, Expires: Start: 02-07-2024 End: 12-01-2024 Thyroxine (T4) free [Mass/volume] in Serum or Plasma T4, Free Lab Routine Type 2 diabetes mellitus without complication, without long-term current use of insulin (HCC) Expected: 02/07/2024, Expires: 12/01/2024 [facility] Comment on above: Expected: 02/07/2024, Expires: Start: 02-02-2024 Hemoglobin A1c measurement A1C [facility] Start: 12-27-2023 End: 12-27-2023 Patient encounter procedure 12/27/2023 8:45 AM EST Office Visit [facility] [address] [place] [address] Office [facility], [address] [place] [address] CNP [address] [place] [address] [facility] Start: 12-22-2023 End: 12-22-2023 Patient encounter procedure 12/22/2023 1:30 PM EST Office Visit [facility] [address] [place] [address] Curtis Hernandez MD [address] [address] [facility] Start: 12-22-2023 End: 12-22-2023 Patient encounter procedure 12/22/2023 11:45 AM EST Office Visit [facility] [address] [place] [address] Curtis Hernandez MD [address] [address] [facility] Start: 12-13-2023 End: 12-13-2023 Patient encounter procedure 12/13/2023 3:00 PM EST Office Visit [facility] Physician [facility] [address] [place] [phone] Alphonso Leahy Jr., DPM [address] [place] [address] [facility] Phys[facility] Start: 12-09-2023 Hemoglobin A1c measurement A1C [facility] Start: 12-07-2023 End: 12-07-2023 Patient encounter procedure 12/07/2023 11:00 AM EDT Office Visit [facility] [address] [place] [address] Medical Office [facility], 2nd [place] [address], INSERTING PRESS OPERATOR [address] [address] [facility] Start: 12-01-2023 End: 12-01-2023 Patient encounter procedure 12/01/2023 10:00 AM EDT Office Visit [facility] [address] [place] [address] Curtis Hernandez MD [address] [address] Paco Sears, INSERTING PRESS OPERATOR [address] [place] [address] [facility] Start: 10-25-2023 End: 10-25-2023 Patient encounter procedure 10/25/2023 11:30 AM EDT Office Visit [facility] [address] [facility] [address] [place] [address] Reji Curran MD [address] [place] [address] [facility] Start: 10-08-2023 COVID-19 Vaccine ( season) COVID-19 Vaccine () [facility] Start: 10-08-2023 COVID-19 Vaccine () COVID-19 Vaccine () [facility] Start: 10-08-2023 Influenza vaccination INFLUENZA VACCINE (#1) [facility] Start: 03-15-2023 Glaucoma screening [facility] Start: 12-15-2022 Urine screening for protein [facility] Start: 10-14-2022 End: 10-14-2022 Patient encounter procedure 10/14/2022 Office Visit Primary Care Curtis Hernandez MD [address] [address] [facility] Start: 10-07-2022 COVID-19 VACCINE () COVID-19 VACCINE () [facility] Start: 07-09-2022 Hemoglobin A1c measurement A1C [facility] Start: 04-08-2022 End: 04-08-2022 Patient encounter procedure 04/08/2022 Office Visit Primary Care Curtis Hernandez MD [address] [address] [facility] Start: 02-23-2022 End: 02-23-2022 Patient encounter procedure 02/23/2022 Office Visit Primary Care Curtis Hernandez MD [address] [address] [facility] Start: 01-07-2022 Hemoglobin A1c measurement A1C [facility] Start: 12-28-2021 End: 12-28-2021 ambulatory 12/28/2021 Evaluation Rehabilitation Curtis Hernandez MD [address] [address] Natalia Carrasquillo, TAMIKA [facility] Start: 11-12-2021 End: 11-12-2021 Patient encounter procedure 11/12/2021 Office Visit Primary Care Curtis Hernandez MD [address] [address] [facility] Start: 10-07-2021 Influenza vaccination Sequential Influenza Vaccine (#1) [facility] Start: 08-27-2021 End: 08-28-2022 Famciclovir 500 mg Oral Tablet Every 12 Hours ; Tablet (FAMVIR)DOSE = 500 mg Oral Once Start: 27-Aug-2021 End: 27-Aug-2022 Ordered: 27-Aug-2021 Yovany Goff [facility] Start: 2020 Administration of herpes zoster vaccine Zoster Vaccines (1 of 2) [facility] Start: 2020 Prostate specific antigen measurement PROSTATE CANCER SCREENING DISCUSSION [facility] Start: 2020 Screening for malignant neoplasm of colon Flexible sigmoidoscopy [facility] Start: 2020 Zoster vaccine hzv live for subcutaneous use ZOSTER (SHINGLES) VACCINE (1 of 2) [facility] Start: 04-30-2015 Screening for malignant neoplasm of colon COLORECTAL CANCER SCREENING DISCUSSION [facility] Start: 1989 Hepatitis B vaccination HEP B VACCINE (1 of 3 - 19+ 3-dose series) [facility] Start: 1989 Pneumococcal Vaccine: Age 50+ (1 of 2 - PCV) Pneumococcal Vaccine: Age 50+ (1 of 2 - PCV) [facility] Start: 1989 Third diphtheria, tetanus and acellular pertussis (DTaP) vaccination TDAP (ADULT) [facility] Start: 1988 Hepatitis C screening Hepatitis C Screening [facility] Start: 1985 HIV screening [facility] Start: 1982 Depression screening using PHQ-9 (Patient Health Questionnaire 9) score Depression Screening/Follow-Up (PHQ-2/9) [facility] Start: 1980 Diabetic foot examination [facility] Start: 1980 Glaucoma screening Ophthalmology Exam [facility] Start: 1980 Urine screening for protein Urine Microalbumin [facility] Start: 1976 Pneumococcal Vaccine: Ped or At-Risk (1 - PCV) Pneumococcal Vaccine: Ped or At-Risk (1 - PCV) [facility] Start: 1976 Pneumococcal Vaccine: Ped or At-Risk (1 of 2 - PCV) Pneumococcal Vaccine: Ped or At-Risk (1 of 2 - PCV) [facility] Start: 1973 History and physical examination, annual for health maintenance Wellness Visit [facility] Start: 1970 COVID-19 Vaccine (#1) COVID-19 Vaccine (#1) [facility] Start: 1970 Diabetic foot examination DIABETIC FOOT EXAM [facility] Start: 1970 Glaucoma screening EYE EXAM [facility] Start: 1970 Hepatitis C screening HEPATITIS C VIRUS SCREENING [facility] Start: 1970 Prostate specific antigen measurement PSA Level [facility] Start: 1970 Screening for malignant neoplasm of colon [facility] Start: 1970 Tetanus vaccination [facility] Start: 1970 Urine screening for protein URINE MICROALBUMIN TEST [facility] Anion gap in Serum o r Plasma [facility] End: 04-09-2023 Basic metabolic 1999 panel - Serum or Plasma Basic Metabolic Panel Lab Routine Essential hypertension, benign 1 Occurrences starting 04/08/2022 until 04/09/2023 [facility] Comment on above: 1 Occurrences starting 04/08/2022 until 04/09/2023 Basic metabolic 1999 panel - Serum or Plasma Basic Metabolic Panel Lab Routine Essential hypertension, benign 04/08/2022 3:01 PM EST [facility] BUN/Creatinine ratio [facility] Calcium [Mass/volume ] in Serum or Plasma [facility] Carbon dioxide, tota l [Moles/volume] in Central venous blood [facility] Cologuard Cologuard Lab Aixa bolden Colon cancer screening Ordered: 03/28/2022 [facility] Work Phone: Comment on above: Ordered: 03/28/2022 [facility] End: 06-15-2025 Complete blood count with white cell differential, manual CBC and Differential Lab Routine Type 2 diabetes mellitus without complication, without long-term current use of insulin ([facility]) 1 Occurrences starting 06/14/2024 until 06/15/2025 [facility] Comment on above: 1 Occurrences starting 06/14/2024 until 06/15/2025 End: 06-15-2025 Comprehensive metabolic 2000 panel - Serum or Plasma Comprehensive Metabolic Panel Lab Routine Type 2 diabetes mellitus without complication, without long-term current use of insulin ([facility]) 1 Occurrences starting 06/14/2024 until 06/15/2025 [facility] Work Phone: Comment on above: 1 Occurrences starting 06/14/2024 until 06/15/2025 Creatinine [Mass/volume] in Serum or Plasma [facility] Erythrocyte mean corpuscular volume determination [facility] Glucose [Mass/volume ] in Serum or Plasma [facility] Hematocrit [Volume Fraction] of Blood [facility] Hemoglobin [Mass/volume] in Blood [facility] End: 04-09-2023 Hemoglobin A1c/Hemoglobin.total in Blood Hemoglobin A1c Lab Routine Type 2 diabetes mellitus without complication, without long-term current use of insulin ([facility]) 1 Occurrences starting 04/08/2022 until 04/09/2023 [facility] Work Phone: Comment on above: 1 Occurrences starting 04/08/2022 until 04/09/2023 Hemoglobin A1c/Hemoglobin.total in Blood Hemoglobin A1c Lab Routine Type 2 diabetes mellitus without complication, without long-term current use of insulin ([facility]) 04/08/2022 3:01 PM EST [facility] End: 06-15-2025 Hemoglobin A1c/Hemoglobin.total in Blood Hemoglobin A1c Lab Routine Type 2 diabetes mellitus without complication, without long-term current use of insulin ([facility]) 1 Occurrences starting 06/14/2024 until 06/15/2025 [facility] Comment on above: 1 Occurrences starting 06/14/2024 until 06/15/2025 JAK2 gene p.[id number] [Presence] in Blood or Tissue by Molecular genetics method [facility] Leukocytes [#/volume ] in Blood [facility] End: 04-09-2023 Lipid 1996 panel - Serum or Plasma Lipid Panel Lab Routine Pure hypercholesterolemia 1 Occurrences starting 04/08/2022 until 04/09/2023 [facility] Comment on above: 1 Occurrences starting 04/08/2022 until 04/09/2023 Lipid 1996 panel - Serum or Plasma Lipid Panel Lab Routine Pure hypercholesterolemia 04/08/2022 3:01 PM EST [facility] End: 06-15-2025 Lipid 1996 panel - Serum or Plasma Lipid Panel Lab Routine Type 2 diabetes mellitus without complication, without long-term current use of insulin ([facility]) 1 Occurrences starting 06/14/2024 until 06/15/2025 [facility] Comment on above: 1 Occurrences starting 06/14/2024 until 06/15/2025 Magnesium measurement [facility] Mean corpuscular hemoglobin concentration determination [facility] Mean corpuscular hemoglobin determination [facility] Measurement of renal function [facility] Neutrophil count [facility] Neutrophil percent differential count [facility] Patient referral [facility] Work Phone: Platelets [#/volume] in Blood [facility] Potassium measurement [facility] Red blood cell count [facility] Red cell distributio n width determination [facility] Serum chloride measurement [facility] Sodium measurement [facility] End: 06-15-2025 Thyrotropin [Units/volume] in Serum or Plasma TSH Lab Routine Type 2 diabetes mellitus without complication, without long-term current use of insulin ([facility]) 1 Occurrences starting 06/14/2024 until 06/15/2025 [facility] Comment on above: 1 Occurrences starting 06/14/2024 until 06/15/2025 End: 06-15-2025 Thyroxine (T4) free [Mass/volume] in Serum or Plasma T4, Free Lab Routine Type 2 diabetes mellitus without complication, without long-term current use of insulin ([facility]) 1 Occurrences starting 06/14/2024 until 06/15/2025 [facility] Comment on above: 1 Occurrences starting 06/14/2024 until 06/15/2025 Troponin T.cardiac [Mass/volume] in Serum or Plasma by High sensitivity method [facility] Urea nitrogen [Mass/volume] in Serum or Plasma [facility] Payers Date Payer Category Payer Self-pay 2023 Medicaid [id number] 2021 Unknown 2021 Medicaid [id number] 1970 Unknown [id number] 2.16. 840.1.751390.3.579.2.594 1970 Unknown [id number] 2.16. 840.1.298300.3.579.2.594 1970 Unknown [id number] 2.16 840.1.324368.3.579.2.903 1970 Unknown [id number] 2.16 840.1.872761.3.579.2.903 1970 Unknown [id number] 2. 840.1.200465.3.579.2.903 1970 Unknown [id number] 2. 840.1.675604.3.579.2.903 1970 Unknown [id number] 2.16. 840.1.611014.3.579.2.903 1970 Unknown [id number] 2. 840.1.161382.3.579.2.903 1970 Unknown [id number] 2. 840.1.838700.3.579.2.903 1970 Unknown [id number] 2.16. 840.1.800913.3.579.2.903 1970 Unknown [id number] 2.16. 840.1.381692.3.579.2.903 1970 Unknown [id number] 2.16. 840.1.419158.3.579.2.903 1970 Unknown [id number] 2.16 840.1.332724.3.579.2.903 1970 Unknown [id number] 2.16. 840.1.394728.3.579.2.903 1970 Unknown [id number] 2.16. 840.1.336866.3.579.2.903 1970 Unknown [id number] 2.16. 840.1.238578.3.579.2.903 1970 Unknown [id number] 2.16. 840.1.413672.3.579.2.903 1970 Unknown [id number] 2.16. 840.1.482656.3.579.2.903 1970 Unknown [id number] 2.16. 840.1.003404.3.579.2.903 1970 Unknown [id number] 2.16. 840.1.407254.3.579.2.903 Unknown [id number] 2.16.8 40.1.951724.3.579.2.462 Unknown [id number] 2.16.8 40.1.421152.3.579.2.462 Unknown [id number] 2.16.8 40.1.147169.3.579.2.462 Unknown [id number] 2.16.8 40.1.413444.3.579.2.462 Unknown [id number] 2.16.8 40.1.834638.3.579.2.462 Unknown [id number] 2.16.8 40.1.673037.3.579.2.462 Unknown [id number] 2.16.8 40.1.556553.3.579.2.462 Unknown [id number] 2.16.8 40.1.734400.3.579.2.462 Unknown [id number] 2.16.8 40.1.070965.3.579.2.462 Unknown [id number] 2.16.8 40.1.563715.3.579.2.462 Unknown [id number] 2.16.8 40.1.873655.3.579.2.462 Unknown [id number] 2.16.8 40.1.101508.3.579.2.462 Unknown [id number] 2.16.8 40.1.336942.3.579.2.462 Unknown [id number] 2.16.8 40.1.829559.3.579.2.462 Unknown [id number] 2.16.8 40.1.875382.3.579.2.462 Unknown [id number] 2.16.8 40.1.033386.3.579.2.462 Unknown [id number] 2.16.8 40.1.355213.3.579.2.462 Unknown [id number] 2.16.8 40.1.112777.3.579.2.462 Unknown [id number] 2.16.8 40.1.362185.3.579.2.462 Social History Date Type Detail Facility Start: 04-26-2020 End: 12-01-2023 Denies Ever Smoked [facility] Tobacco smoking consumption unknown [facility] Start: 10-08-2021 End: 12-01-2023 Tobacco use and exposure User of smokeless tobacco [facility] History of tobacco use Snuff User [facility] Start: 10-09-2021 End: 04-08-2022 Alcohol intake Lifetime non-drinker (finding) [facility] Start: 1970 Sex Assigned At Not on file [facility] Start: 09-28-2021 End: 04-07-2022 Exposure to SARS-CoV-2 (event) Not sure [facility] Start: 11-11-2021 History SDOH Alcohol Frequency 1 [facility] Start: 11-11-2021 History SDOH Alcohol Std Drinks 0 [facility] Start: 11-11-2021 History SDOH Social Connections Phone 4 [facility] Start: 11-11-2021 History SDOH Social Connections Get Together 2 [facility] Start: 11-11-2021 History SDOH Social Connections Living 5 [facility] Start: 11-11-2021 History SDOH Stress 3 [facility] History of tobacco use Chews Tobacco [facility] Start: 09-11-2023 End: 10-26-2023 Alcoholic beverage intake Current drinker of alcohol (finding) [facility] Start: 09-08-2023 End: 11-03-2023 History of Social function [facility] Start: 09-08-2023 End: 11-03-2023 [facility] Utilities [facility] Has the [employer], or water [employer] threatened to shut off services in your home in past 12Mo No [facility] (I/We) worried wheth er (my/our) food would run out before (I/we) got money to buy more. Never true [facility] In the past 12 month s, has lack of transportation kept you from medical appointments or from getting medications? No [facility] Start: 10-06-2023 End: 07-16-2024 Alcoholic beverage intake Ex-drinker (finding) [facility] Are you now , , , , never or living with a partner? [facility] How often to you hav e a drink containing alcohol? Never [facility] Do you feel stress - tense, restless, nervous, or anxious, or unable to sleep at night because your mind is troubled all the time - these days [OSQ] To some extent [facility] (I/We) worried wheth er (my/our) food would run out before (I/we) got money to buy more. Sometimes true [facility] Start: 10-06-2023 Alcohol Comment I don t anymore [facility] Start: 10-08-2021 Gender identity Identifies as male gender (finding) [facility] Start: 10-08-2021 Sexual orientation Heterosexual (finding) [facility] Start: 12-01-2023 Tobacco Comment 1 can every 3 days. [facility] Start: 06-02-2024 Tobacco smoking status NHIS Smokes tobacco daily (finding) [facility] Start: 06-03-2024 Sex Male (finding) [facility] Start: 1970 Sex Assigned At Male [facility] Medical Equipment Procedure Code Equipment Code Equipment Origin al Text Equipment Identifier Dates Use BEFORE MEALS and at BEDTIME to test blood sugar. [id number] Start: 09-11-2023 Use new needle w ith each insulin injection. [id number] Start: 09-11-2023 Use BEFORE MEALS and at BEDTIME to test blood sugar. [id number] Start: 09-11-2023 Use as directed to check blood glucose 4 times per day . [id number] Start: 01-19-2024 End: 07-31-2024 Use as directed to inject insulin 4 times per day . [id number] Start: 01-19-2024 End: 06-14-2024 Use as directed to inject insulin 4 times per day . [id number] Start: 06-14-2024 Lancets (Onetou[employer] h Delica Plus Lancet) 30 gauge misc Start: 07-24-2024 Use as directed to check blood glucose 4 times per day . [id number] Start: 08-01-2024 End: 09-06-2024 by Miscellaneous route 4 (four) times a day . [id number] Start: 08-15-2024 Lancets (Onetouc h Delica Plus Lancet) 30 gauge misc Start: 07-24-2024 Lancets (Onetouc h Delica Plus Lancet) 30 gauge misc Start: 07-24-2024 Use as directed to check blood glucose 4 times per day . [id number] Start: 09-06-2024 Goals Date Patient Goal Desired Activity /State Functional Status Date Assessment Result Facility 07-27-2024 Functional status Bedrest [facility] Work Phone: 07-26-2024 Functional status Tolerates Activity Well [facility] Work Phone: 07-05-2024 Functional status Chair [facility] Work Phone: 07-04-2024 Functional status Assistive Devices None [facility] Work Phone: 06-04-2024 Functional status Bedrest [facility] Work Phone: Mental Status Date Assessment Result Facility 07-27-2024 Cognitive function Voice/Name [facility] Work Phone: 07-05-2024 Cognitive function Voice/Name [facility] Work Phone: 07-05-2024 Cognitive function Appropriate;Cooperativ e [facility] Work Phone: 06-04-2024 Cognitive function Voice/Name [place] [facility] Work Phone: 06-02-2024 Cognitive function Level Of Cons ciousness Awake;Alert;Appropriate;Follow s Commands [facility] Work Phone: Clinical Notes 03-22-2021 to 08-16-2024 Note Date & Type Note Facility 08-16-2024 Progress note [facility] 08-16-2024 Progress note Note Date/Time August 16, 2024 2:54pm [facility] [address] [place] [address] OFFICE VISIT Date of Service: 08/16/24 MR#: [id number] Acct: [id number] Name: TRINIDADMAXWELL Rep #: [id number] : 1970 Provider: Dr. Sissy Ricardo MD Age/Sex: 54/M Location: [facility] Status: Signed Intake Vital Signs 07/25/24 11:52 08/16/24 14:41 Height 5 ft 9 in 5 ft 9 in Weight: 349 lb BMI 51.5 Body Surface Area 0 BP 128/84 H Blood Pressure Location Rt brachial Position Sitting Respiration 18 Pulse 64 Pulse Source Monitor Temp 97.2 F L Temp Source Temporal Pulse Oximetry (%) 97 Oxygen Delivery Method room air Intake Visit Reasons: HOSPITAL F/U- DISCUSS UPPER AND LOWER Chief Complaint: hospital f/u- discuss upper and lower Is patient in pain?: No Allergies No Known Allergies Allergy (Verified 08/16/24 14:42) Medications ?Medication ?Instructions ?Recorded ?Confirmed ?Type aspirin 81 mg chewable tablet 1 tab PO DAILY heart hea lth 06/03/24 08/16/24 History insulin lispro 100 unit/mL 10 unit subcut TID diabetes #15 mL 06/04/24 08/16/24 Rx subcutaneous pen furosemide 40 mg tablet 40 mg PO DAILY 30 days #30 t abs 07/05/24 08/16/24 Rx alcohol swabs (Alcohol Prep Pads) 1 pad topical 4X/DAY 07/24/24 08/16/24 History blood-glucose meter ([employer] #1 ea 07/24/24 08/16/24 History Verio Flex Meter) diltiazem HCl 120 mg 120 mg PO Q12H 07/24/2408/06 History capsule,extended release 24 hr glucagon 1 mg solution for 1 mg IM PRN 07/24/24 History injection (Glucagon Emergency Kit) insulin glargine 100 unit/mL (3 30 unit subcut DAILY d iabetes 07/24/24 08/16/24 History mL) subcutaneous pen (Lantus Solostar U-100 Insulin) lancets 30 gauge ([employer] Delica #100 ea 07/24/2412/31 History Plus Lancet) nifedipine 30 mg tablet,extended 30 mg PO DAILY 08/16/24 History release sitagliptin phosphate 50 mg tablet 50 mg PO DAILY 07/0708/16/24 History (Januvia) omeprazole 40 mg capsule,delayed 40 mg PO DAILY #30 ca ps 07/27/24 08/16/24 Rx release apixaban 5 mg tablet 5 mg PO BID #60 tabs 5 08/16/24 Rx atorvastatin 40 mg tablet 40 mg PO QDAY 08/16/2408/16 History losartan 50 mg tablet 50 mg PO QDAY 08/16/2408/16 History PFSH Medical History Cervical vertebral fusion Seizure Migraine Hypothyroidism Hyperlipidemia GERD (gastroesophageal reflux disease) Essential hypertension Depression COPD (chronic obstructive pulmonary disease) (HFpEF) heart failure with preserved ejection fraction Sleep apnea Seizures Stroke/cerebrovascular accident Hypertension High cholesterol Diabetes Surgical History H/O arthroscopy of knee Hx of arthroscopic knee surgery Hx of neck surgery Family History Other Heart disease Social History household members: spouse and family housing: house Smoking Status: Never smoker Smokeless tobacco user: snuff HPI HPI HPI: Patient is a 54-year-old male who was recently in the hospital with free air. The patient was treated with a PPI and discharged home. He reports that on a PPI he feels much better with less bloating and less gas and no reflux. He reports no abdominal pain. ROS General General: Yes weight change; No appetite, fatigue, colon cancer, breast cancer or weakness HEENT HEENT: No difficulty swallowing, eye injury, eye surgery, swollen glands or hoarseness Endo Endocrine: Yes diabetes mellitus; No thyroid disease, thyroid cancer, Hair loss, heat intolerance or cold intolerance Skin Skin: No rash or changing moles Musc Musculoskeletal: Yes back problems and gout; No arthritis, rheumatoid arthritis or joint pain Cardio Cardiovascular: Yes heart disease, atrial fibrillation and high blood pressure; No murmur, pacemaker, heart attack, heart stent, palpitations, shortness of breath with exertion or chest pain Psych Psychiatric: Yes depression and anxiety; No hearing voices Resp Respiratory: No shortness of breath, Yes sleep apnea, No cough, No COPD, No asthma, No emphysema and No wheezing Gastro Gastrointestinal: No abdominal pain, No nausea or vomiting, Yes diarrhea, Yes constipation, No blood in stool, Yes acid reflux, No hemorrhoids, No ulcers, No gallbladder problem and No black,tarry stools Tommy Hematologic: Yes blood thinners, No blood disorders, No bleeding, No anemia and Yes blood clots Neuro Neurologic: No numbness, No tingling and No weakness Exam Const General: cooperative Orientation: alert and oriented x3 HENMT Head: normal to inspection Neck Neck: normal visual inspection and full ROM Chest Chest palpation & inspection: normal inspection of the chest Resp Effort & Inspection: normal respiratory effort Auscultation: clear to auscultation bilaterally Cardio Rate: regular rate Rhythm: regular rhythm GI Inspection: non-distended Palpation: soft and nontender Skin General: no rashes or lesions noted Neuro General: patient alert and patient oriented x3 Extrem General: full ROM Psych Appearance: grossly normal Mental Status: mental status grossly normal Assessment and Plan Assessment and Plan (1) Free intraperitoneal air: Status: Acute Plan: The patient has some bubbles of free air on his last CAT scan. This was also the case last time he was at [facility]. I started him on a PPI concerned for peptic ulcer. Patient reports some lot of improvement but I would like to do an EGD toevaluate. (2) Screen for colon cancer: Status: Acute Plan: Patient has never had a screening colonoscopy. Recommend screening colonoscopy. I explained endoscopy in detail to the patient. I explained the risks including but not limited to stroke or heart attack with anesthesia, perforationof the GI tract, bleeding, infection. I explained that any of these could necessitate further emergency surgery. The patient understands and all questions were answered sufficiently. The patient wishes to proceed with procedure. Maxwell Ricardo MD Pager: [facility] [address] [place] [address], [address] [place] [address] Office: Orders: Orders Colonoscopy Today EGD Today Coding Level of Care Code Off vis,est,level 3 Diagnoses Free intraperitoneal air K66.8 Screen for colon cancer Z12.11 08/16/24 1454 <Electronically signed by Maxwell coe MD> Date _ Maxwell Ricardo MD Cosign Signature: Date (if applicable) CC: Dr. Curtis Hernandez MD ~ [facility] Work Phone: [phone] Evaluation + Plan note* Assessment & Plan Note - Peggy Way CNP - 08/10/2024 10:52 PM EDTAssociated Problem(s): Atrial fibrillation (HCC) Continue follow-up with PCP/Cardiology. Continue Eliquis. Fall precautions/bleeding precautions discussed. [id number] Miscellaneous Notes* Assessment & Plan Note - Peggy Way CNP - 08/10/2024 10:52 PM EDTAssociated Problem(s): Atrial fibrillation (HCC) Continue follow-up with PCP/Cardiology. Continue Eliquis. Fall precautions/bleeding precautions discussed. * Assessment & Plan Note - Peggy Way CNP - 08/10/2024 10:51 PM EDT Associated Problem(s): Seizure (HCC) Last seizure September 2023 Continue Keppra 500 mg BID. Side effects of the medication discussed. Patient denies any side effects of medication and verbalizes compliance with taking medication as instructed. Encouraged to call when further refills are needed. Seizure precautions and safety measures discussed. Avoid unprotected heights, open malone alone, and avoid use of power tools and equipment without the proper safe guards in place. Patient is aware if another seizure occurs he would need to discontinue driving until he is seizure free for 6 months. Avoid any possible triggers. Maintain adequate sleep, avoid missed medications, maintain healthy diet and exercise habits, avoid excessive alcohol use, and avoid drug use. 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 EEG 11/29/2023: Normal MRI Brain ([facility]) 09/08/2023: Potential focus of mild reduced diffusivity in the chantel, slightly right of midline, which could potentially represent an acute/subacute infarct vs artifact - later determined to be artifact vs stroke. Recommend dilated fundoscopy and perimetry. Patient was encouraged to schedule follow-up eye exam. Contact for [facility] provided. Follow-up: 6 months or sooner as needed. documented in this [id number] Evaluation + Plan note* Assessment & Plan Note - Peggy Way CNP - 08/10/2024 10:51 PM EDT Associated Problem(s): Seizure (HCC) Last seizure September 2023 Continue Keppra 500 mg BID. Side effects of the medication discussed. Patient denies any side effects of medication and verbalizes compliance with taking medication as instructed. Encouraged to call when further refills are needed. Seizure precautions and safety measures discussed. Avoid unprotected heights, open malone alone, and avoid use of power tools and equipment without the proper safe guards in place. Patient is aware if another seizure occurs he would need to discontinue driving until he is seizure free for 6 months. Avoid any possible triggers. Maintain adequate sleep, avoid missed medications, maintain healthy diet and exercise habits, avoid excessive alcohol use, and avoid drug use. 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 EEG 11/29/2023: Normal MRI Brain ([facility]) 09/08/2023: Potential focus of mild reduced diffusivity in the chantel, slightly right of midline, which could potentially represent an acute/subacute infarct vs artifact - later determined to be artifact vs stroke. Recommend dilated fundoscopy and perimetry. Patient was encouraged to schedule follow-up eye exam. Contact for [facility] provided. Follow-up: 6 months or sooner as needed. [id number] NoteSubjective Patient ID: Maxwell Sandhu is a 54 y.o. male. Patient here for follow-up unfortunately he was admitted to [facility] at the end of June for acute CHF he had an appointment with his administrative services assistant that day that he could not make due to the hospitalization and sounds like they did not consult cardiology to come to the hospital for further evaluation was managed by the inpatient specialist and discharged there was some confusion with his medications as they had him listed is taking diltiazem and he thought he was supposed to continue with his nifedipine He states that he has done well from the heart standpoint and his medications have been doing well He has had his appointment with cardiology reset for August 15 in [place] has not seen yet. Has upcoming apt with GI - to eval the pneumoperitonum after his hospitalization of CHF he was admitted to the hospital with abdominal bloating and found to have intraperitoneal air with no signs of source he has follow-up as noted above they are planning EGD and colonoscopy Seizure activity - none since last year - can stop meds according to patient but needs to be able to drive so will keep on meds for now BP running high - his machine 159/97 our manual 160/100 The following portions of the patient's history were reviewed and updated as appropriate: allergies, current medications, past family history, past medical history, past social history, past surgical history, and problem list. Review of Systems Constitutional: Negative for chills, diaphoresis and fever. HENT: Negative for congestion and sinus pain. Eyes: Negative for redness. Respiratory: Negative for cough, shortness of breath and wheezing. Cardiovascular: Negative for chest pain and palpitations. Gastrointestinal: Negative for diarrhea, nausea and vomiting. Endocrine: Negative for polydipsia. Genitourinary: Negative for frequency and hematuria. Musculoskeletal: Negative for back pain. Neurological: Negative for weakness and headaches. Psychiatric/Behavioral: Negative for confusion. Objective Physical Exam Constitutional: General: He is not in acute distress. Appearance: He is obese. Cardiovascular: Rate and Rhythm: Normal rate and regular rhythm. Heart sounds: No murmur heard. No friction rub. No gallop. Pulmonary: Effort: Pulmonary effort is normal. Breath sounds: No wheezing or rales. Neurological: Mental Status: He is alert. Psychiatric: Attention and Perception: Attention normal. Mood and Affect: Mood normal. Behavior: Behavior is cooperative. Assessment/Plan: Diagnoses and all orders for this visit: Essential hypertension, benign - losartan (COZAAR) 50 MG tablet; Take 1 (one) tablet (50 mg total) by mouth daily . His blood pressure is elevated but for some reason he has been off of his losartan we will just restart and he can call us with results Pure hypercholesterolemia - atorvastatin (LIPITOR) 40 MG tablet; Take 1 (one) tablet (40 mg total) by mouth daily . Needs refill on his cholesterol medicines Paroxysmal atrial fibrillation (HCC) Really needs to make sure that he follows up with cardiology does not have the doctor's name but does have an appointment Congestive heart failure, unspecified HF chronicity, unspecified heart failure type (HCC) As noted above needs to follow-up with cardiology My ongoing relationship with Maxwell Sandhu requires continued responsibility and cognitive effort of being the focal point for all services related to chronic condition(s). Curtis Hernandez M.D. For any new medications prescribed today, patient was educated about indications for the medication, how to take the medication and potential side effects of the medications. AUTHENTICATED BY CURTIS HERNANDEZ, ON 08/01/2024 21:45:14[facility]06-25-2025 History of Present illness Narrative* Curtis Hernandez MD - 07/31/2024 1:49 PM EDT Images from the original note were not included. Subjective Patient ID: Maxwell Sandhu is a 54 y.o. male. Patient here for follow-up unfortunately he was admitted to [facility] at the end of June for acute CHF he had an appointment with his administrative services assistant that day that he could not make due to the hospitalization and sounds like they did not consult cardiology to come to the hospital for further evaluation was managed by the inpatient specialist and discharged there was some confusion with his medications as they had him listed is taking diltiazem and he thought he was supposed to continue with his nifedipine He states that he has done well from the heart standpoint and his medications have been doing well He has had his appointment with cardiology reset for August 15 in [place] has not seen yet. Has upcoming apt with GI - to eval the pneumoperitonum after his hospitalization of CHF he was admitted to the hospital with abdominal bloating and found to have intraperitoneal air with no signs of source he has follow-up as noted above they are planning EGD and colonoscopy Seizure activity - none since last year - can stop meds according to patient but needs to be able to drive so will keep on meds for now BP running high - his machine 159/97 our manual 160/100 The following portions of the patient's history were reviewed and updated as appropriate: allergies, current medications, past family history, past medical history, past social history, past surgicalhistory, and problem list. Review of Systems Constitutional: Negative for chills, diaphoresis and fever. HENT: Negative for congestion and sinus pain. Eyes: Negative for redness. Respiratory: Negative for cough, shortness of breath and wheezing. Cardiovascular: Negative for chest pain and palpitations. Gastrointestinal: Negative for diarrhea, nausea and vomiting. Endocrine: Negative for polydipsia. Genitourinary: Negative for frequency and hematuria. Musculoskeletal: Negative for back pain. Neurological: Negative for weakness and headaches. Psychiatric/Behavioral: Negative for confusion. Objective Physical Exam Constitutional: General: He is not in acute distress. Appearance: He is obese. Cardiovascular: Rate and Rhythm: Normal rate and regular rhythm. Heart sounds: No murmur heard. No friction rub. No gallop. Pulmonary: Effort: Pulmonary effort is normal. Breath sounds: No wheezing or rales. Neurological: Mental Status: He is alert. Psychiatric: Attention and Perception: Attention normal. Mood and Affect: Mood normal. Behavior: Behavior is cooperative. Assessment/Plan: Diagnoses and all orders for this visit: Essential hypertension, benign - losartan (COZAAR) 50 MG tablet; Take 1 (one) tablet (50 mg total) by mouth daily . His blood pressure is elevated but for some reason he has been off of his losartan we will just restart and he can call us with results Pure hypercholesterolemia - atorvastatin (LIPITOR) 40 MG tablet; Take 1 (one) tablet (40 mg total) by mouth daily . Needs refill on his cholesterol medicines Paroxysmal atrial fibrillation (HCC) Really needs to make sure that he follows up with cardiology does not have the doctor's name but does have an appointment Congestive heart failure, unspecified HF chronicity, unspecified heart failure type (HCC) As noted above needs to follow-up with cardiology My ongoing relationship with Maxwell Rich [place] requires continued responsibility and cognitive effortof being the focal point for all services related to chronic condition(s). Curtis Hernandez M.D. For any new medications prescribed today, patient was educated about indications for the medication, how to take the medication and potential side effects of the medications. documented in this [id number] Progress note Author Jamaica James [facility] Note Date/Time July 27, 2024 9:51 am [facility] Medical Records Department [address] [place] [address] Progress Note - Surgery 07/27/24 0938 MR#: [id number] Acct: [id number] Name: MAXWELL SANDHU Rep #:[id number] : 1970 54 From: Jamaica James MD PCP: Dr. Curtis Hernandez MD Status:A DM IN Location: MS3 [id number] Subjective Subjective Patient tolerated transitional diet, still denies any abdominal pain. Having bowel function. Objective Data Objective Data Vital Signs: Vital Signs Temp Pulse Resp BP Pulse Ox O2 Del Method 97.6 F L 64 18 139/98 H 98 Room Air 07/27/24 09:05 07/27/24 09:05 07/27/24 09:05 07/27/24 09:05 07/27/24 09:05 07/27/24 09:19 Oxygen Delivery Method Room Air Weight: 343 lb 14.738 oz Body Mass Index (BMI) 50.8 Intake & Output: Intake and Output for Last 24 Hours 07/25/24 07/26/24 07/27/24 23:59 23:59 23:59 Intake Total 2250 / 2950 3156 / 3156 450 / 450 Output Total 1200 / 1800 3975 / 3975 1075 / 1075 Balance 1050 / 1150 -819 / -819 -625 / -625 Lab / Micro Data 07/26/24 08:54 07/26/24 08:54 Labs: Laboratory Results - last 24 hr 07/26/24 08:54: Sodium 140, Potassium 3.4, Chloride 107, Carbon Dioxide 23.1, Anion Gap 10, BUN 7, Creatinine 0.54 L, Estim Creat Clear Calc 231.85, Est GFR (MDRD) Non-Af 119, BUN/Creatinine Ratio 12.4, Glucose 135 H, Calcium 8.2 07/26/24 11:09: POC Glucose 227 H 07/26/24 17:18: POC Glucose 212 H 07/26/24 23:10: POC Glucose 229 H 07/27/24 06:20: POC Glucose 179 H Physical Exam Const oriented x3 and no apparent distress Resp normal respiratory effort Cardio regular rate GI soft to palpation and non-tender Inspection: Negative for abdominal distention Assessment & Plan Assessment/Plan (1) Free intraperitoneal air: PLAN: Patient continues to deny abdominal pain and has benign exam. Patient tolerated transitional diet. Will DC home with a few days of Augmentin as well as PPI. Patient will follow-up in 1 to [address] Ricardo to discuss future EGD and colonoscopy. Jamaica James M.D. Pager: [phone] [facility] [address] [place] [address], [facility]patient [facility], [address] [place] [address] Office: [phone] 07/27/24 0951 <Electronically signed by Jamaica James MD> Cosigner Signature (if applicable): CC: ~ Signed [facility] Work Phone: 1(626) 994-677406-21-2025 Discharge summary Author Jamaica James [facility] Note Date/Time July 27, 2024 9:44 am [facility] Medical Records Department [address] [place] [address] Discharge Summary 07/27/24 0939 MR#: [id number] Acct: [id number] Name: MAXWELL SANDHU Rep #:[id number] : 1970 54 From: Jamaica James MD PCP: Dr. Curtis Hernandez MD Status:A DM IN Location: [facility] QV306-8 Providers Date of Admission: 07/24/24 Date of Discharge: 07/27/24 Primary Care Physician: Dr. Curtis Hernandez MD Reason For Visit: FREE INTRAABDOMINAL AIR Diagnosis Discharge Diagnosis (1) Free intraperitoneal air: Status: Acute Code(s): K66.8 - Other specified disorders of peritoneum Plan: Patient continues to have no abdominal pain and benign exam. Patient tolerated transitional diet. Plan to DC patient home with couple days of Augmentin as well as PPI. Patient will follow-up with Dr. Ricardo in 1 to 2 weeks to discuss possible EGD and colonoscopy in the future Jamaica James M.D. Pager: [phone] [facility] [address] [place] [address], [facility], [address] [place] [address] Office: [phone] Medications at Discharge Home Medications levetiracetam 500 mg tablet 500 mg PO BID keppra 11/01/23 aspirin 81 mg chewable tablet 1 tab PO DAILY heart health 06/03/24 insulin lispro 100 unit/mL subcutaneous pen 10 unit subcut TID diabetes #15 mL 06/04/24 apixaban 5 mg tablet 5 mg PO BID #134 tabs 07/05/24 furosemide 40 mg tablet 40 mg PO DAILY 30 days #30 tabs 07/05/24 alcohol swabs (Alcohol Prep Pads) 1 pad topical 4X/DAY 07/24/24 blood-glucose meter ([employer] SolutionsTouch Verio Flex Meter) #1 ea 07/24/24 diltiazem HCl 120 mg capsule,extended release 24 hr 120 mg PO Q12H 07/24/24 glucagon 1 mg solution for injection (Glucagon Emergency Kit) 1 mg IM PRN 07/24/24 insulin glargine 100 unit/mL (3 mL) subcutaneous pen (Lantus Solostar U-100 Insulin) 30 unit subcut DAILY diabetes 07/24/24 lancets 30 gauge ([employer] SolutionsTouch Delica Plus Lancet) #100 ea 07/24/24 nifedipine 30 mg tablet,extended release 30 mg PO DAILY 07/24/24 sitagliptin phosphate 50 mg tablet (Januvia) 50 mg PO DAILY 07/24/24 amoxicillin 875 mg-potassium clavulanate 125 mg tablet 1 tab PO BID #4 tabs 07/27/24 omeprazole 40 mg capsule,delayed release 40 mg PO DAILY #30 caps 07/27/24 Hospital Course Operations None Procedures None Summary of Care Provided Minutes Spent on Discharge: 15 Hospital Course: 54-year-old male presents initially due to nausea vomiting abdominal bloating. Patient CT abdomen pelvis showed intra-abdominal air however no obvious source in the stomach which was fluid-filled or sigmoid was obvious on CT. Patient also previously had this last year in the fall and was sent to [facility] did not have surgery and was sent home. Patient has never had colonoscopy or EGD. Here patient was treated conservatively with IV antibiotics and IV Protonix. Patientcontinued to have a benign exam. Patient's diet was slowly advanced and patientdid tolerate. Patient was DC'd home. Physical Exam Const oriented x3 and no apparent distress Resp normal respiratory effort Cardio regular rate GI soft to palpation and non-tender Inspection: Negative for abdominal distention Weight / BMI Weight Weight: 343 lb 14.738 oz Body Mass Index (BMI) 50.8 ABG / Lab / Microbiology Data 07/26/24 08:54 07/26/24 08:54 Laboratory: Laboratory Results - last 24 hr 07/26/24 11:09: POC Glucose 227 H 07/26/24 17:18: POC Glucose 212 H 07/26/24 23:10: POC Glucose 229 H 07/27/24 06:20: POC Glucose 179 H D/C Instructions Discharge Diet: - (Transitional/low fiber/diabetic) DC O2, CPAP, BIPAP Needs Home O2 Discharge instructions: No Please Follow Up With: Maxwell Ricardo MD When: Call the office [phone] for a follow-up appointment in 1 to 2 weeks?plan to discuss future EGD/colonoscopy Meaningful Use Info Meaningful Use Meaningful Use Diagnoses (Choose all that apply): None applicable Ischemic Stroke Statin Dosing Therapy Reference: STATIN DOSE THERAPY REFERENCE: * Patients > 75 years receive moderate or high dose statin therapy. * Patients 75 years or YOUNGER should receive HIGH intensity statin dose unless contraindicated. You will be required to document reason for non-treatment if statin daily dose does not meet guidelines. HIGH DOSE STATIN THERAPY DAILY Atorvastatin > than or = to 40 mg Rosuvastatin > than or = to 20 mg Amlodipine + Atorvastatin > than or = to 2.5/40 mg Ezetimibe + Simvastatin 10/80 mg Simvastatin 80mg Discharge Plan Admission Admit Date/Time: 07/24/24 11:29 Attending Provider: Maxwell Ricardo Primary Care Provider: Curtis Hernandez Discharge Orders/Prescriptions Prescriptions: New amoxicillin-pot clavulanate 875-125 mg tablet 1 tab PO BID Qty: 4 0RF omeprazole 40 mg capsule,delayed release(DR/EC) 40 mg PO DAILY Qty: 30 5RF Continued (DME) lancets [OneTouch Delica Plus Lancet] 30 gauge misc See Rx Instructions .ROUTE BID Qty: 100 Rx Instructions: As directed Januvia 50 mg tablet 50 mg PO DAILY alcohol swabs [Alcohol Prep Pads] Pads, Medicated 1 pad topical 4X/DAY (DME) blood-glucose meter [OneTouch Verio Flex meter] Misc See Rx Instructions .ROUTE .MEDSUPPLY Qty: 1 Patient Comments: [NO ORIGINAL SIG] Rx Instructions: As directed Glucagon Emergency Kit (human) 1 mg recon soln 1 mg IM PRN levetiracetam 500 mg tablet 500 mg PO BID furosemide 40 mg Tablet 40 mg PO DAILY 30 Days Qty: 30 2RF apixaban 5 mg tablet 5 mg PO BID Qty: 134 0RF aspirin 81 mg tablet,chewable 1 tab PO DAILY insulin lispro 100 unit/mL insulin pen 10 unit subcut TID Qty: 15 0RF Protocol: 6. Sliding Scale Insulin Custom Condition: mg/dl range Dose/Route: Number of Units Protocol Text: Custom Sliding Scale Rx Instructions: patient on sliding scale with meals subcutaneously three times a day; nifedipine 30 mg tablet extended release 30 mg PO DAILY diltiazem HCl 120 mg Capsule,Extended Release 24hr 120 mg PO Q12H insulin glargine [Lantus Solostar U-100 Insulin] 100 unit/mL (3 mL) insulin pen 30 unit subcut DAILY Referrals / Follow Up: Curtis Hernandez MD [Primary Care Provider] - Charges/Coding Visit Charges Inpatient E&M: 04882 Disch Hosp 07/27/24 0944 <Electronically signed by Jamaica James MD> Cosigner Signature (if applicable): CC: Dr. Curtis Hernandez MD; Dr. Jamaica James MD~ Signed [facility] Work Phone: 1(491) 873-171906-21-2025 Progress note [facility] Medical Records Department [address] [place] [address] Progress Note - Surgery 07/27/24937 MR#: [id number] Acct: [id number] Name: MAXWELL SANDHU Rep #:[id number] : 1970 54 From: Jamaica James MD PCP: Dr. Curtis Hernandez MD Status:A DM IN Location: MS3 [id number] Subjective Subjective Patient tolerated transitional diet, still denies any abdominal pain. Having bowel function. Objective Data Objective Data Vital Signs: Vital Signs Temp Pulse Resp BP Pulse Ox O2 Del Method 97.6 F L 64 18 139/98 H 98 Room Air 07/27/24 09:05 07/27/24 09:05 07/27/24 09:05 07/27/24 09:05 07/27/24 09:05 07/27/24 09:19 Oxygen Delivery Method Room Air Weight: 343 lb 14.738 oz Body Mass Index (BMI) 50.8 Intake & Output: Intake and Output for Last 24 Hours 07/25/24 07/26/24 07/27/24 23:59 23:59 23:59 Intake Total 2250 / 2950 3156 / 3156 450 / 450 Output Total 1200 / 1800 3975 / 3975 1075 / 1075 Balance 1050 / 1150 -819 / -819 -625 / -625 Lab / Micro Data 07/26/24 08:54 07/26/24 08:54 Labs: Laboratory Results - last 24 hr 07/26/24 08:54: Sodium 140, Potassium 3.4, Chloride 107, Carbon Dioxide 23.1, Anion Gap 10, BUN 7, Creatinine 0.54 L, Estim Creat Clear Calc 231.85, Est GFR (MDRD) Non-Af 119, BUN/Creatinine Ratio 12.4, Glucose 135 H, Calcium 8.2 07/26/24 11:09: POC Glucose 227 H 07/26/24 17:18: POC Glucose 212 H 07/26/24 23:10: POC Glucose 229 H 07/27/24 06:20: POC Glucose 179 H Physical Exam Const oriented x3 and no apparent distress Resp normal respiratory effort Cardio regular rate GI soft to palpation and non-tender Inspection: Negative for abdominal distention Assessment & Plan Assessment/Plan (1) Free intraperitoneal air: PLAN: Patient continues to deny abdominal pain and has benign exam. Patient tolerated transitional diet. Will DC home with a few days of Augmentin as well as PPI. Patient will follow-up in 1 to [address] Ricardo to discuss future EGD and colonoscopy. Jamaica James M.D. Pager: [phone] [facility] [address] [place] [address], [address] [place] [id number] Office: [phone] 07/27/24 0951 Cosigner Signature (if applicable): CC: ~ Signed [facility]06-21-2025 Discharge summary [facility] Medical Records Department [address] [place] [address] Discharge Summary 07/27/24 0939 MR#: [id number] Acct: [id number] Name: MAXWELL SANDHU Rep #:[id number] : 1970 54 From: Jamaica James MD PCP: Dr. Curtis Hernandez MD Status:A DM IN [id number] Date of Admission: 07/24/24 Date of Discharge: 07/27/24 Primary Care Physician: Dr. Curtis Hernandez MD Reason For Visit: FREE INTRAABDOMINAL AIR Diagnosis Discharge Diagnosis (1) Free intraperitoneal air: Status: Acute Code(s): K66.8 - Other specified disorders of peritoneum Plan: Patient continues to have no abdominal pain and benign exam. Patient tolerated transitional diet. Plan to DC patient home with couple days of Augmentin as well as PPI. Patient will follow-up with in 1 to 2 weeks to discuss possible EGD and colonoscopy in the future Jamaica James M.D. Pager: [phone] [facility] [address] [place] [address], Outpatient [facility], [address] [place] [address] Office: [phone] Medications at Discharge Home Medications levetiracetam 500 mg tablet 500 mg PO BID keppra 11/01/23 aspirin 81 mg chewable tablet 1 tab PO DAILY heart health 06/03/24 insulin lispro 100 unit/mL subcutaneous pen 10 unit subcut TID diabetes #15 mL 06/04/24 apixaban 5 mg tablet 5 mg PO BID #134 tabs 07/05/24 furosemide 40 mg tablet 40 mg PO DAILY 30 days #30 tabs 07/05/24 alcohol swabs (Alcohol Prep Pads) 1 pad topical 4X/DAY 07/24/24 blood-glucose meter (OneTouch Verio Flex Meter) #1 ea 07/24/24 diltiazem HCl 120 mg capsule,extended release 24 hr 120 mg PO Q12H 07/24/24 glucagon 1 mg solution for injection (Glucagon Emergency Kit) 1 mg IM PRN 07/24/24 insulin glargine 100 unit/mL (3 mL) subcutaneous pen (Lantus Solostar U-100 Insulin) 30 unit subcutDAILY diabetes 07/24/24 lancets 30 gauge (OneTouch Delica Plus Lancet) #100 ea 07/24/24 nifedipine 30 mg tablet,extended release 30 mg PO DAILY 07/24/24 sitagliptin phosphate 50 mg tablet (Januvia) 50 mg PO DAILY 07/24/24 amoxicillin 875 mg-potassium clavulanate 125 mg tablet 1 tab PO BID #4 tabs 07/27/24 omeprazole 40 mg capsule,delayed release 40 mg PO DAILY #30 caps 07/27/24 Hospital Course Operations None Procedures None Summary of Care Provided Minutes Spent on Discharge: 15 Hospital Course: 54-year-old male presents initially due to nausea vomiting abdominal bloating. Patient CT abdomen pelvis showed intra-abdominal air however no obvious source in the stomach which was fluid-filled or sigmoid was obvious on CT. Patient also previously had this last year in the fall and was sent to [facility] did not have surgery and was sent home. Patient has never had colonoscopy or EGD. Here patient wastreated conservatively with IV antibiotics and IV Protonix. Patientcontinued to have a benign exam.Patient's diet was slowly advanced and patientdid tolerate. Patient was DC'd home. Physical Exam Const oriented x3 and no apparent distress Resp normal respiratory effort Cardio regular rate GI soft to palpation and non-tender Inspection: Negative for abdominal distention Weight / BMI Weight Weight: 343 lb 14.738 oz Body Mass Index (BMI) 50.8 ABG / Lab / Microbiology Data 07/26/24 08:54 07/26/24 08:54 Laboratory: Laboratory Results - last 24 hr 07/26/24 11:09: POC Glucose 227 H 07/26/24 17:18: POC Glucose 212 H 07/26/24 23:10: POC Glucose 229 H 07/27/24 06:20: POC Glucose 179 H D/C Instructions Discharge Diet: - (Transitional/low fiber/diabetic) DC O2, CPAP, BIPAP Needs Home O2 Discharge instructions: No Please Follow Up With: Maxwell Ricardo MD When: Call the office [phone] for a follow-up appointment in 1 to 2 weeks?plan to discuss future EGD/colonoscopy Meaningful Use Info Meaningful Use Meaningful Use Diagnoses (Choose all that apply): None applicable Ischemic Stroke Statin Dosing Therapy Reference: STATIN DOSE THERAPY REFERENCE: * Patients > 75 years receive moderate or high dose statin therapy. * Patients 75 years or YOUNGER should receive HIGH intensity statin dose unless contraindicated. You will be required to document reason for non-treatment if statin daily dose does not meet guidelines. HIGH DOSE STATIN THERAPY DAILY Atorvastatin > than or = to 40 mg Rosuvastatin > than or = to 20 mg Amlodipine + Atorvastatin > than or = to 2.5/40 mg Ezetimibe + Simvastatin 10/80 mg Simvastatin 80mg Discharge Plan Admission Admit Date/Time: 07/24/24 11:29 Attending Provider: Maxwell Ricardo Primary Care Provider: Curtis Hernandez Discharge Orders/Prescriptions Prescriptions: New amoxicillin-pot clavulanate 875-125 mg tablet 1 tab PO BID Qty: 4 0RF omeprazole 40 mg capsule,delayed release(DR/EC) 40 mg PO DAILY Qty: 30 5RF Continued (DME) lancets [OneTouch Delica Plus Lancet] 30 gauge misc See Rx Instructions .ROUTE BID Qty: 100 Rx Instructions: As directed Januvia 50 mg tablet 50 mg PO DAILY alcohol swabs [Alcohol Prep Pads] Pads, Medicated 1 pad topical 4X/DAY (DME) blood-glucose meter [OneTouch Verio Flex meter] Misc See Rx Instructions .ROUTE .MEDSUPPLY Qty: 1 Patient Comments: [NO ORIGINAL SIG] Rx Instructions: As directed Glucagon Emergency Kit (human) 1 mg recon soln 1 mg IM PRN levetiracetam 500 mg tablet 500 mg PO BID furosemide 40 mg Tablet 40 mg PO DAILY 30 Days Qty: 30 2RF apixaban 5 mg tablet 5 mg PO BID Qty: 134 0RF aspirin 81 mg tablet,chewable 1 tab PO DAILY insulin lispro 100 unit/mL insulin pen 10 unit subcut TID Qty: 15 0RF Protocol: 6. Sliding Scale Insulin Custom Condition: mg/dl range Dose/Route: Number of Units Protocol Text: Custom Sliding Scale Rx Instructions: patient on sliding scale with meals subcutaneously three times a day; nifedipine 30 mg tablet extended release 30 mg PO DAILY diltiazem HCl 120 mg Capsule,Extended Release 24hr 120 mg PO Q12H insulin glargine [Lantus Solostar U-100 Insulin] 100 unit/mL (3 mL) insulin pen 30 unit subcut DAILY Referrals / Follow Up: Curtis Hernandez MD [Primary Care Provider] - Charges/Coding Visit Charges Inpatient E&M: 57030 Disch Hosp 07/27/24 0944 Cosigner Signature (if applicable): CC: Dr. Curtis Hernandez MD; Dr. Jamaica James MD~ Signed [facility]06-21-2025 [facility] Medical Records Department [address] [place] [address] Discharge Summary 07/27/24 0939 MR#: [id number] Acct: [id number] Name: TRINIDADMAXWELLARIS JIMÉNEZ Rep #: [id number] : 1970 54 From: Jamaica James MD PCP: Dr. Curtis Hernandez MD Status:ADM IN Location: VT3 CI238-9 Providers Date of Admission: 07/24/24 Date of Discharge: 07/27/24 Primary Care Physician: Dr. Curtis Hernandez MD Reason For Visit: FREE INTRAABDOMINAL AIR Diagnosis Discharge Diagnosis (1) Free intraperitoneal air: Status: Acute Code(s): K66.8 - Other specified disorders of peritoneum Plan: Patient continues to have no abdominal pain and benign exam. Patient tolerated transitional diet. Plan to DC patient home with couple days of Augmentin as well as PPI. Patient will follow-up with Dr. Ricardo in 1 to 2 weeks to discuss possible EGD and colonoscopy in the future Jamaica James M.D. Pager: [phone] [facility] [address] [place] [address], [facility], [address] [place] [id number] Office: [phone] Medications at Discharge Home Medications levetiracetam 500 mg tablet 500 mg PO BID keppra 11/01/23 aspirin 81 mg chewable tablet 1 tab PO DAILY heart health 06/03/24 insulin lispro 100 unit/mL subcutaneous pen 10 unit subcut TID diabetes #15 mL 06/04/24 apixaban 5 mg tablet 5 mg PO BID #134 tabs 07/05/24 furosemide 40 mg tablet 40 mg PO DAILY 30 days #30 tabs 07/05/24 alcohol swabs (Alcohol Prep Pads) 1 pad topical 4X/DAY 07/24/24 blood-glucose meter ([employer] Verio Flex Meter) #1 ea 07/24/24 diltiazem HCl 120 mg capsule,extended release 24 hr 120 mg PO Q12H 07/24/24 glucagon 1 mg solution for injection (Glucagon Emergency Kit) 1 mg IM PRN 07/24/24 insulin glargine 100 unit/mL (3 mL) subcutaneous pen (Lantus Solostar U-100 Insulin) 30 unit subcut DAILY diabetes 07/24/24 lancets 30 gauge ([employer]Touch Delica Plus Lancet) #100 ea 07/24/24 nifedipine 30 mg tablet,extended release 30 mg PO DAILY 07/24/24 sitagliptin phosphate 50 mg tablet (Januvia) 50 mg PO DAILY 07/24/24 amoxicillin 875 mg-potassium clavulanate 125 mg tablet 1 tab PO BID #4 tabs 07/27/24 omeprazole 40 mg capsule,delayed release 40 mg PO DAILY #30 caps 07/27/24 Hospital Course Operations None Procedures None Summary of Care Provided Minutes Spent on Discharge: 15 Hospital Course: 54-year-old male presents initially due to nausea vomiting abdominal bloating. Patient CT abdomen pelvis showed intra-abdominal air however no obvious source in the stomach which was fluid-filled or sigmoid was obvious on CT. Patient also previously had this last year in the fall and was sent to [facility] did not have surgery and was sent home. Patient has never had colonoscopy or EGD. Here patient was treated conservatively with IV antibiotics and IV Protonix. Patient continued to have a benign exam. Patient's diet was slowly advanced and patient did tolerate. Patient was DC'd home. Physical Exam Const oriented x3 and no apparent distress Resp normal respiratory effort Cardio regular rate GI soft to palpation and non-tender Inspection: Negative for abdominal distention Weight / BMI Weight Weight: 343 lb 14.738 oz Body Mass Index (BMI) 50.8 ABG / Lab / Microbiology Data 07/26/24 08:54 07/26/24 08:54 Laboratory: Laboratory Results - last 24 hr 07/26/24 11:09: POC Glucose 227 H 07/26/24 17:18: POC Glucose 212 H 07/26/24 23:10: POC Glucose 229 H 07/27/24 06:20: POC Glucose 179 H D/C Instructions Discharge Diet: - (Transitional/low fiber/diabetic) DC O2, CPAP, BIPAP Needs Home O2 Discharge instructions: No Please Follow Up With: Maxwell Ricardo MD When: Call the office [phone] for a follow-up appointment in 1 to 2 weeks???plan to discuss future EGD/colonoscopy Meaningful Use Info Meaningful Use Meaningful Use Diagnoses (Choose all that apply): None applicable Ischemic Stroke Statin Dosing Therapy Reference: STATIN DOSE THERAPY REFERENCE: * Patients > 75 years receive moderate or high dose statin therapy. * Patients 75 years or YOUNGER should receive HIGH intensity statin dose unless contraindicated. You will be required to document reason for non-treatment if statin daily dose does not meet guidelines. HIGH DOSE STATIN THERAPY DAILY Atorvastatin > than or = to 40 mg Rosuvastatin > than or = to 20 mg Amlodipine + Atorvastatin > than or = to 2.5/40 mg Ezetimibe + Simvastatin 10/80 mg Simvastatin 80mg Discharge Plan Admission Admit Date/Time: 07/24/24 11:29 Attending Provider: Maxwlel Ricardo Primary Care Provider: Curtis Hernandez Discharge Orders/Prescriptions Prescriptions: New amoxicillin-pot clavulanate 875-125 mg tablet 1 tab PO BID Qty: 4 0RF omeprazole 40 mg c (more content not included)...[facility] 07-26-2024 Progress note Author Jamaica James [facility] Note Date/Time July 26, 2024 8:31 am [facility] Medical Records Department [address] [facility] [place] [address] Progress Note - Surgery 07/26/24828 MR#: [id number] Acct: [id number] Name: MAXWELL SANDHU Rep #:[id number] : 1970 54 From: Jamaica James MD PCP: Dr. Curtis Hernandez MD Status:A DM IN Location: [place] [address]-1 Subjective Subjective Patient denies any abdominal pain, tolerating clears and having bowel function. Objective Data Objective Data Vital Signs: Vital Signs Temp Pulse Resp BP Pulse Ox O2 Del Method 97.7 F L 54 L 16 130/73 H 95 Room Air 07/26/24 07:40 07/26/24 07:40 07/26/24 07:40 07/26/24 07:40 07/26/24 07:40 07/26/24 07:40 Oxygen Delivery Method Room Air Weight: 343 lb 14.738 oz Body Mass Index (BMI) 50.8 Intake & Output: Intake and Output for Last 24 Hours 07/24/24 07/25/24 07/26/24 23:59 23:59 23:59 Intake Total 1100 / 1100 2250 / 2950 850 / 850 Output Total 1200 / 1800 950 / 950 Balance 1100 / 600 1050 / 1150 -100 / -100 Lab / Micro Data 07/25/24 05:30 07/25/24 05:30 Labs: Laboratory Results - last 24 hr 07/25/24 11:31: POC Glucose 149 H 07/25/24 16:26: POC Glucose 162 H 07/26/24 06:20: POC Glucose 155 H Physical Exam Const oriented x3 and no apparent distress Resp normal respiratory effort Cardio regular rate GI soft to palpation and non-tender Inspection: Negative for abdominal distention Assessment & Plan Assessment/Plan (1) Free intraperitoneal air: PLAN: Patient continues to have benign abdominal exam?unsure etiology of intra-abdominal free air patient did have this previously and sent to [facility] and did not have any surgery at that time. Patient denies any history of upper abdominal pain or lower abdominal pain previous to coming to ER just felt bloated and had nausea and vomiting. White blood cell count normal with no shift on Zosyn as well as a PPI. Patient tolerated clears will advance to full liquids. Jamaica James M.D. Pager: [phone] [facility] [address] [place] [address], [facility], [address] [place] [address] Office: [phone] Charges/Coding Visit Charges Inpatient E&M: 92733 Subs Hosp L2 07/26/24 0831 <Electronically signed by Jamaica James MD> Cosigner Signature (if applicable): CC: ~ Signed [facility] Work Phone: 1(466) 400-655406-20-2025 Progress note [facility] Medical Records Department [address] [place] [address] Progress Note - Surgery 07/26/24 0829 MR#: [id number] Acct: [id number] Name: MAXWELL SANDHU Rep #:[id number] : 1970 54 From: Jamaica James MD PCP: Dr. Curtis Hernandez MD Status:A DM IN Location: [facility]3 [id number] Subjective Subjective Patient denies any abdominal pain, tolerating clears and having bowel function. Objective Data Objective Data Vital Signs: Vital Signs Temp Pulse Resp BP Pulse Ox O2 Del Method 97.7 F L 54 L 16 130/73 H 95 Room Air 07/26/24 07:40 07/26/24 07:40 07/26/24 07:40 07/26/24 07:40 07/26/24 07:40 07/26/24 07:40 Oxygen Delivery Method Room Air Weight: 343 lb 14.738 oz Body Mass Index (BMI) 50.8 Intake & Output: Intake and Output for Last 24 Hours 07/24/24 07/25/24 07/26/24 23:59 23:59 23:59 Intake Total 1100 / 1100 2250 / 2950 850 / 850 Output Total 1200 / 1800 950 / 950 Balance 1100 / 600 1050 / 1150 -100 / -100 Lab / Micro Data 07/25/24 05:30 07/25/24 05:30 Labs: Laboratory Results - last 24 hr 07/25/24 11:31: POC Glucose 149 H 07/25/24 16:26: POC Glucose 162 H 07/26/24 06:20: POC Glucose 155 H Physical Exam Const oriented x3 and no apparent distress Resp normal respiratory effort Cardio regular rate GI soft to palpation and non-tender Inspection: Negative for abdominal distention Assessment & Plan Assessment/Plan (1) Free intraperitoneal air: PLAN: Patient continues to have benign abdominal exam?unsure etiology of intra- abdominal free air patient did have this previously and sent to [facility] and did not have any surgery at that time. Patient denies any history of upper abdominal pain or lower abdominal pain previous to coming to ER just feltbloated and had nausea and vomiting. White blood cell count normal with no shift on Zosyn as well as a PPI. Patient tolerated clears will advance to full liquids. aJmaica James M.D. Pager: [phone] [facility] [address] [place] [address], [facility], [address] [place] [address] Office: [phone] Charges/Coding Visit Charges Inpatient E&M: 89427 Subs Hosp L2 07/26/24 0831 Cosigner Signature (if applicable): CC: ~ Signed [facility]06-19-2025 Progress note Author Maxwell Ricardo [facility] Note Date/Time July 25, 2024 7:58 am [facility] Medical Records Department [address] [place] [address] Progress Note - Surgery 07/25/24 0757 MR#: [id number] Acct: [id number] Name: MAXWELL SANDHU Rep #:[id number] : 1970 54 From: Maxwell kaplan MD PCP: Dr. Curtis Hernandez MD Status:A DM IN Location: [facility]3 [id number] Subjective Subjective Patient reports no abdominal pain this morning. He says the fullness he was feeling yesterday is gone. He denies nausea or vomiting. Objective Data Objective Data Vital Signs: Vital Signs Temp Pulse Resp BP Pulse Ox O2 Del Method 98.1 F 75 16 129/77 H 95 Room Air 07/25/24 07:28 07/25/24 07:30 07/25/24 07:28 07/25/24 07:28 07/25/24 07:28 07/25/24 07:28 Oxygen Delivery Method Room Air Weight: 344 lb Body Mass Index (BMI) 50.8 Intake & Output: Intake and Output for Last 24 Hours 07/23/24 07/24/24 07/25/24 23:59 23:59 23:59 Intake Total 1100 / 1100 50 / 50 Output Total 800 / 800 Balance 1100 / 600 -750 / -750 Lab / Micro Data 07/25/24 05:30 07/24/24 09:20 Labs: Laboratory Results - last 24 hr 07/24/24 09:20: WBC 10.4, RBC 6.17, Hgb 16.0, Hct 49.6, MCV 80.4, MCH 25.9 L, MCHC 32.3, RDW Std Deviation 41.0, RDW Coeff of Masha 14.1, Plt Count 178, MPV 11.1, Immature Gran % (Auto) 0.200, Neut % (Auto) 86.9 H, Lymph % (Auto) 5.6 L, Mohave % (Auto) 6.2, Eos % (Auto) 0.7, Baso % (Auto) 0.4, Absolute Neuts (auto) 9.0 H, Absolute Lymphs (auto) 0.58 L, Nucleated RBC % 0, Sodium 140, Potassium 3.6, Chloride 103, Carbon Dioxide 24.8, Anion Gap 12, BUN 17, Creatinine 0.81, Estim Creat Clear Calc 154.59, Est GFR (MDRD) Non-Af 105, BUN/Creatinine Ratio 21.6 H, Glucose 209 H, Calcium 9.6, Total Bilirubin 0.75, AST 19, ALT 15, Alkaline Phosphatase 97, Total Protein 7.8, Albumin 3.8, Globulin 4.0, Albumin/Globulin Ratio 0.9, Lipase 18 07/24/24 11:51: Urine Color Yellow, Urine Clarity Sl. Cloudy, Urine pH 5.0, Ur Specific Conklin 1.020, Urine Protein 100 H, Urine Glucose (UA) Normal, Urine Ketones 5 H, Urine Occult Blood 25 H, Urine Nitrite Positive H, Urine Bilirubin 1 H, Urine Urobilinogen 1 H, Ur Leukocyte Esterase 100 H, Urine RBC 0 SEEN, Urine WBC 10-25 SEEN, Ur Squamous Epith Cells 0-5 SEEN, Urine Bacteria 2+, UrineMucus 0 SEEN 07/25/24 05:30: WBC 5.9, RBC 5.39, Hgb 14.0, Hct 43.8, MCV 81.3, MCH 26.0 L, MCHC 32.0, RDW Std Deviation 41.9, RDW Coeff of Masha 14.4, Plt Count 161, MPV 11.4, Immature Gran % (Auto) 0.500, Neut % (Auto) 67.7, Lymph % (Auto) 18.0 L, Mohave % (Auto) 9.7, Eos % (Auto) 3.4, Baso % (Auto) 0.7, Absolute Neuts (auto) 4.0, Absolute Lymphs (auto) 1.06, Nucleated RBC % 0 Radiography Diagnostic Testing: Radiology Impression Abdomen/Pelvis CT 07/24/24 08:55 IMPRESSION: Fluid-filled slightly dilated small bowel loops with fluid in the colon. This may represent either early or incomplete small bowel obstruction. Ileus may also have a similar appearance. Free intraperitoneal air. Small gallstones are layered in the gallbladder lumen. Red Alert: Free air The critical information above was relayed directly by me by telephone to Des Barillas on 07/24/2024 at 10:38 am with readback verification. [facility] 07/24/24 11:30 IMPRESSION: Persistent intraperitoneal air. Orogastric tube has been placed. There is less distention of the small bowel loops at this time. Small gallstones. Reading Location: [facility] Physical Exam Const oriented x3 and no apparent distress Resp normal respiratory effort GI normal to inspection, nondistended, normoactive bowel sounds Assessment & Plan Assessment/Plan (1) Free intraperitoneal air: PLAN: The patient has a benign abdominal exam this morning with no pain. White count is normal with no left shift. NG put out minimal overnight. We had a repeat CT scan yesterday afternoon that showed no extra visitation of oral contrast. I am still concerned that this is peptic ulcer disease given the factthat he is having dumping and bloating with a lot of gas at baseline. Today I will remove the NG and start a clear liquid diet. Continue IV PPI. Resume homemeds except for Eliquis. If he tolerates clear liquids and is doing well we will send him home on a oral PPI and follow-up with him in the office next week to schedule EGD. Maxwell Ricardo MD Pager: [facility] [address] [place] [address], [address] [place] [address] Office: 07/25/24 075 <Electronically signed by Maxwell Ricardo MD> Cosigner Signature (if applicable): CC: ~ Signed [facility] Work Phone: 1(202) 263-937206-19-2025 Progress note [facility] Medical Records Department [address] [place] [address] Progress Note - Surgery 07/25/24756 MR#: [id number] Acct: [id number] Name: MAXWELL SANDHU Rep #:[id number] : 1970 54 From: Maxwell kaplan MD PCP: Dr. Curtis Hernandez MD Status:A DM IN Location: [facility] [id number] Subjective Subjective Patient reports no abdominal pain this morning. He says the fullness he was feeling yesterday is gone. He denies nausea or vomiting. Objective Data Objective Data Vital Signs: Vital Signs Temp Pulse Resp BP Pulse Ox O2 Del Method 98.1 F 75 16 129/77 H 95 Room Air 07/25/24 07:28 07/25/24 07:30 07/25/24 07:28 07/25/24 07:28 07/25/24 07:28 07/25/24 07:28 Oxygen Delivery Method Room Air Weight: 344 lb Body Mass Index (BMI) 50.8 Intake & Output: Intake and Output for Last 24 Hours 07/23/24 07/24/24 07/25/24 23:59 23:59 23:59 Intake Total 1100 / 1100 50 / 50 Output Total 800 / 800 Balance 1100 / 600 -750 / -750 Lab / Micro Data 07/25/24 05:30 07/24/24 09:20 Labs: Laboratory Results - last 24 hr 07/24/24 09:20: WBC 10.4, RBC 6.17, Hgb 16.0, Hct 49.6, MCV 80.4, MCH 25.9 L, MCHC 32.3, RDW Std Deviation 41.0, RDW Coeff of Masha 14.1, Plt Count 178, MPV 11.1, Immature Gran % (Auto) 0.200, Neut % (Auto) 86.9 H, Lymph % (Auto) 5.6 L, Mohave % (Auto) 6.2, Eos % (Auto) 0.7, Baso % (Auto) 0.4, AbsoluteNeuts (auto) 9.0 H, Absolute Lymphs (auto) 0.58 L, Nucleated RBC % 0, Sodium 140, Potassium 3.6, Chloride 103, Carbon Dioxide 24.8, Anion Gap 12, BUN 17, Creatinine 0.81, Estim Creat Clear Calc 154.59, Est GFR (MDRD) Non-Af 105, BUN/Creatinine Ratio 21.6 H, Glucose 209 H, Calcium 9.6, Total Bilirubin 0.75, AST 19, ALT 15, Alkaline Phosphatase 97, Total Protein 7.8, Albumin 3.8, Globulin 4.0, Albumin/Globulin Ratio 0.9, Lipase 18 07/24/24 11:51: Urine Color Yellow, Urine Clarity Sl. Cloudy, Urine pH 5.0, Ur Specific Conklin 1.020, Urine Protein 100 H, Urine Glucose (UA) Normal, Urine Ketones 5 H, Urine Occult Blood 25 H, Urine Nitrite Positive H, Urine Bilirubin 1 H, Urine Urobilinogen 1 H, Ur Leukocyte Esterase 100 H, Urine RBC 0 SEEN, Urine WBC 10-25 SEEN, Ur Squamous Epith Cells 0-5 SEEN, Urine Bacteria 2+, UrineMucus 0 SEEN 07/25/24 05:30: WBC 5.9, RBC 5.39, Hgb 14.0, Hct 43.8, MCV 81.3, MCH 26.0 L, MCHC 32.0, RDW Std Deviation 41.9, RDW Coeff of Masha 14.4, Plt Count 161, MPV 11.4, Immature Gran % (Auto) 0.500, Neut % (Auto) 67.7, Lymph % (Auto) 18.0 L, Mohave % (Auto) 9.7, Eos % (Auto) 3.4, Baso % (Auto) 0.7, Absolute Neuts (auto) 4.0, Absolute Lymphs (auto) 1.06, Nucleated RBC % 0 Radiography Diagnostic Testing: Radiology Impression Abdomen/Pelvis CT 07/24/24 08:55 IMPRESSION: Fluid-filled slightly dilated small bowel loops with fluid in the colon. This may represent either early or incomplete small bowel obstruction. Ileus may also have a similar appearance. Free intraperitoneal air. Small gallstones are layered in the gallbladder lumen. Red Alert: Free air The critical information above was relayed directly by me by telephone to Des Barillas on 07/24/2024 at 10:38 am with readback verification. Reading Location: [facility] 07/24/24 11:30 IMPRESSION: Persistent intraperitoneal air. Orogastric tube has been placed. There is less distention of the small bowel loops at this time. Small gallstones. Reading Location: [facility] Physical Exam Const oriented x3 and no apparent distress Resp normal respiratory effort GI normal to inspection, nondistended, normoactive bowel sounds Assessment & Plan Assessment/Plan (1) Free intraperitoneal air: PLAN: The patient has a benign abdominal exam this morning with no pain. White count is normal withno left shift. NG put out minimal overnight. We had a repeat CT scan yesterday afternoon that showed no extra visitation of oral contrast. I am still concerned that this is peptic ulcer disease giventhe factthat he is having dumping and bloating with a lot of gas at baseline. Today I will remove the NG and start a clear liquid diet. Continue IV PPI. Resume homemeds except for Eliquis. If he tolerates clear liquids and is doing well we will send him home on a oral PPI and follow-up with him in the office next week to schedule EGD. Maxwell Ricardo MD Pager: [facility] [address] [place] [address], [address] [place] [address] Office: 07/25/24 2597 Cosigner Signature (if applicable): CC: ~ Signed [facility]06-18-2025 Discharge summary Author Des Barillas [facility] Note Date/Time July 24, 2024 6:10 pm [facility] Medical Records Department [address] [place] [address] Emergency Department Summary 07/24/24 MR#: [id number] Acct: [id number] Name: MAXWELL SANDHU Rep #:[id number] : 1970 54 From: Des Easton PCP: Dr. Curtis Hernandez MD Status:A DM IN [facility] HPI - GI History of Present Illness Chief Complaint: Abd Pain Abdominal Pain/Flank Pain Onset: Yesterday Context: Sudden Onset Timing: Continuous Quality: Dull and - (Gassy) Location: Epigastric, RUQ and LUQ Worsened by: Nothing Relieved by: - (Vomiting) Nausea/Vomiting/Emesis GI Symptom: Positive for Nausea and Vomiting Quality: Positive for Nonbilious; Negative for Blood streaks, Coffee ground or Hematemesis Diarrhea/Melena/Hematochezia GI Symptom: Positive for Diarrhea; Negative for Melena or Hematochezia Stool Quality: Positive for Watery Associated Symptoms Associated Symptoms: Negative for Dysuria, Frequency or Hematuria Narrative Narrative: Patient presents with abdominal pain and has been constant for the past 2 days. Patient states it began rather suddenly. Patient states it has been constant. Patient describes it as a dull pain. Patient states he feels gassy. Patient states it is mainly over the upper abdomen. Patient states he feels better after vomiting. Patient denies any hematemesis or coffee-ground emesis. Patient admits to some watery diarrhea. Patient denies any melena or hematochezia. Patient denies any dysuria, frequency, or hematuria. Patient admits to some subjective chills but denies any fevers. [facility] PFS Medical History (Updated 07/24/24 @ 11:[address] Des Barillas DO) (HFpEF) heart failure with preserved ejection fraction Sleep apnea Seizures Stroke/cerebrovascular accident Hypertension High cholesterol Diabetes Home Medications ?Medication ?Instructions ?Recorded ?Last Taken ?Type levetiracetam 500 mg tablet 500 mg PO BID keppra 10/3107/23/24 History aspirin 81 mg chewable tablet 1 tab PO DAILY heart hea lth 06/03/24 07/23/24 History insulin lispro 100 unit/mL 10 unit subcut TID diabetes #15 mL 06/04/24 07/23/24 Rx subcutaneous pen apixaban 5 mg tablet 5 mg PO BID #134 tabs 07/23/24 Rx furosemide 40 mg tablet 40 mg PO DAILY 30 days #30 t abs 07/05/24 07/23/24 Rx diltiazem HCl 120 mg 120 mg PO Q12H 07/24/2407/07 History capsule,extended release 24 hr insulin glargine 100 unit/mL (3 30 unit subcut DAILY d iabetes 07/24/24 07/23/24 History mL) subcutaneous pen (Lantus Solostar U-100 Insulin) nifedipine 30 mg tablet,extended 30 mg PO DAILY 07/23/24 History release Allergy/AdvReac Type Severity Reaction Status Date / Time No Known Allergies Allergy Verified 07/24/24 07:46 Family History (Updated 07/02/24 @ 16:[address] Des Hamm DO) Other Heart disease Surgical History (Updated 07/24/24 @ 08:[address] Des Barillas DO) Hx of arthroscopic knee surgery Hx of neck surgery Social History (Updated 07/24/24 @ 08:[address] Des Barillas DO) household members: spouse and family housing: house Smoking Status: Never smoker Smokeless tobacco user: snuff ROS ROS ED Constitutional Constitutional ED: Reports chills; Denies fever(s) Eyes Eyes: Denies blurry vision or change in vision ENT ENT ED: Denies rhinorrhea or sore throat Cardiovascular Cardiovascular: Denies chest pain or palpitations Respiratory/Chest Respiratory/Chest: Reports cough; Denies dyspnea Gastrointestinal Gastrointestinal: Reports abdominal pain, diarrhea, nausea and vomiting; Denies melena Genitourinary Genitourinary ED: Denies dysuria or hematuria Musculoskeletal Musculoskeletal: Denies back pain or neck pain Integumentary Denies abscess or rash Neurologic Neurologic: Denies headache(s) or weakness Allergic/Immunologic Allergic/Immunologic ED: Denies mouth swelling or urticaria EXAM Physical Exam Const Vital Signs: 07/24/24 07:45 07/24/24 09:45 Temperature 97 F L Temperature Source Temporal Pulse Rate 79 74 Respiratory Rate 14 16 Blood Pressure 131/78 H 135/88 H Blood Pressure Mean 95 103 Pulse Ox 98 99 Oxygen Delivery Method Room Air Positive well nourished and well developed Constitutional Narrative: BMI is 50.8 General Appearance ED: well developed and NAD HEENT Reports moist mucous membranes Neck supple and no JVD Resp normal respiratory effort and clear to auscultation bilaterally Cardio regular rate and regular rhythm GI non-distended Palpation: soft and tender epigastric, LUQ and RUQ; Negative for guarding or rebound tenderness present Neuro CN's II-XII intact bilaterally, moves all extremities and no sensory deficits noted Sensorium / Orientation: alert Motor Exam: strength 5/5 throughout Psych mental status grossly normal MDM MDM MDM Narrative Medical decision making narrative: Differential diagnosis includes gastroenteritis, bowel obstruction, perforation,electrolyte abnormality, dehydration, pancreatitis, cholecystitis, cholelithiasis, gastritis, and viral illness. CBC will be obtained to assess for leukocytosis and anemia. Comprehensive metabolic profile will be obtained to assess for hepatic function, renal function, and electrolyte abnormality. Lipase will be obtained to assess for pancreatitis. Urinalysis will be obtainedto assess for urinary tract infection and hematuria. CT scan of the abdomen andpelvis will be obtained to assess for bowel obstruction, pancreatitis, and cholecystitis. History & Record Review Additional record(s) reviewed:: Prior inpatient record, Prior ED visit and Priorlabs Lab Data Attestation: I reviewed the patient's lab results. Lab results narrative: CBC was reviewed and was within normal limits. Comprehensive metabolic profile was reviewed. Glucose was slightly elevated 209. The remainder is within normal limits. Lipase was reviewed and was normal at 18. Labs: Laboratory Results - last 24 hr 07/24/24 09:20 WBC 10.4 RBC 6.17 Hgb 16.0 Hct 49.6 MCV 80.4 MCH 25.9 L MCHC 32.3 RDW Std Deviation 41.0 RDW Coeff of Masha 14.1 Plt Count 178 MPV 11.1 Immature Gran % (Auto) 0.200 Neut % (Auto) 86.9 H Lymph % (Auto) 5.6 L Mohave % (Auto) 6.2 Eos % (Auto) 0.7 Baso % (Auto) 0.4 Absolute Neuts (auto) 9.0 H Absolute Lymphs (auto) 0.58 L Nucleated RBC % 0 Sodium 140 Potassium 3.6 Chloride 103 Carbon Dioxide 24.8 Anion Gap 12 BUN 17 Creatinine 0.81 Estim Creat Clear Calc 154.59 Est GFR (MDRD) Non-Af 105 BUN/Creatinine Ratio 21.6 H Glucose 209 H Calcium 9.6 Total Bilirubin 0.75 AST 19 ALT 15 Alkaline Phosphatase 97 Total Protein 7.8 Albumin 3.8 Globulin 4.0 Albumin/Globulin Ratio 0.9 Lipase 18 Radiography Diagnostic Testing: Clinical Impression(s) from Imaging Studies Abdomen/Pelvis CT 07/24/24 08:55 IMPRESSION: Fluid-filled slightly dilated small bowel loops with fluid in the colon. This may represent either early or incomplete small bowel obstruction. Ileus may also have a similar appearance. Free intraperitoneal air. Small gallstones are layered in the gallbladder lumen. Red Alert: Free air The critical information above was relayed directly by me by telephone to Des Barillas on 07/24/2024 at 10:38 am with readback verification. Reading Location: [facility] CT scan of the abdomen and pelvis was obtained. There is either early or incomplete small bowel obstruction. There is free intraperitoneal air noted. This was interpreted by the radiologist and was also independently reviewed by myself. Management Discussion w/another healthcare provider: Rope Machine Setter and Radiologist Treatment and Re-Evaluation :: Patient was given morphine and Zofran. Patient was given a dose of Zosyn. Patient was advised of his findings. Case was discussed with Dr. Ricardo, general surgery on-call. He will be in to evaluate the patient. He recommendedplacing an NG tube. He also recommended repeating the CT scan with oral contrast. He noted that the patient was seen here last September and had similar findings on the CT scan at that time. Patient was transferred to [facility] at that time. Patient had no surgery at that time. He will admit the patient to his service. Discharge Plan Dx/Rx/DC Orders Clinical Impression: Small bowel obstruction, Type 2 diabetes mellitus with hyperglycemia, Free intraperitoneal air, Hypertension Disposition Disposition: Acute Care Hospital [facility] Discharge Date/Time: 07/24/24 14:27 What to do if you have Problems For any increased pain, shortness of breath, bleeding, nausea or vomiting, chestpain, or any unexpected problems, contact your Primary Care Provider. Call [facility] ([phone]) or report to the closest Emergency Room. Call 911 if necessary. 07/24/24 181 <Electronically signed by Des Barillas DO> Cosigner Signature (if applicable): CC: Dr. Curtis Hernandez MD ~ Signed [facility] Work Phone: [phone] Discharge summary [facility] Medical Records Department [address] [place] [address] Emergency Department Summary 07/24/24 MR#: [id number] Acct: [id number] Name: MAXWELL SANDHU Rep #:[id number] : 1970 54 From: Des Easton PCP: Dr. Curtis Hernandez MD Status:A DM IN Location: VT3 [id number] HPI HPI - GI History of Present Illness Chief Complaint: Abd Pain Abdominal Pain/Flank Pain Onset: Yesterday Context: Sudden Onset Timing: Continuous Quality: Dull and - (Gassy) Location: Epigastric, RUQ and LUQ Worsened by: Nothing Relieved by: - (Vomiting) Nausea/Vomiting/Emesis GI Symptom: Positive for Nausea and Vomiting Quality: Positive for Nonbilious; Negative for Blood streaks, Coffee ground or Hematemesis Diarrhea/Melena/Hematochezia GI Symptom: Positive for Diarrhea; Negative for Melena or Hematochezia Stool Quality: Positive for Watery Associated Symptoms Associated Symptoms: Negative for Dysuria, Frequency or Hematuria Narrative Narrative: Patient presents with abdominal pain and has been constant for the past 2 days. Patient states it began rather suddenly. Patient states it has been constant. Patient describes it as a dull pain. Patient states he feels gassy. Patient states it is mainly over the upper abdomen. Patient states he feels better after vomiting. Patient denies any hematemesis or coffee-ground emesis. Patient admits to some watery diarrhea. Patient denies any melena or hematochezia. Patient denies any dysuria, frequency, or hematuria. Patient admits to some subjective chills but denies any fevers. [facility] Medical History (Updated 07/24/24 @ 11:[address] Des Barillas DO) (HFpEF) heart failure with preserved ejection fraction Sleep apnea Seizures Stroke/cerebrovascular accident Hypertension High cholesterol Diabetes Home Medications ?Medication ?Instructions ?Recorded ?Last Taken ?Type levetiracetam 500 mg tablet 500 mg PO BID keppra 10/3107/23/24 History aspirin 81 mg chewable tablet 1 tab PO DAILY heart hea lth 06/03/24 07/23/24 History insulin lispro 100 unit/mL 10 unit subcut TID diabetes #15 mL 06/04/24 07/23/24 Rx subcutaneous pen apixaban 5 mg tablet 5 mg PO BID #134 tabs 07/23/24 Rx furosemide 40 mg tablet 40 mg PO DAILY 30 days #30 t abs 07/05/24 07/23/24 Rx diltiazem HCl 120 mg 120 mg PO Q12H 07/24/2407/07 History capsule,extended release 24 hr insulin glargine 100 unit/mL (3 30 unit subcut DAILY d iabetes 07/24/24 07/23/24 History mL) subcutaneous pen (Lantus Solostar U-100 Insulin) nifedipine 30 mg tablet,extended 30 mg PO DAILY 07/23/24 History release Allergy/AdvReac Type Severity Reaction Status Date / Time No Known Allergies Allergy Verified 07/24/24 07:46 Family History (Updated 07/02/24 @ 16:[address] Des Hamm DO) Other Heart disease Surgical History (Updated 07/24/24 @ 08:[address] eDs Barillas DO) Hx of arthroscopic knee surgery Hx of neck surgery Social History (Updated 07/24/24 @ 08:[address] Des Barillas DO) household members: spouse and family housing: house Smoking Status: Never smoker Smokeless tobacco user: snuff ROS ROS ED Constitutional Constitutional ED: Reports chills; Denies fever(s) Eyes Eyes: Denies blurry vision or change in vision ENT ENT ED: Denies rhinorrhea or sore throat Cardiovascular Cardiovascular: Denies chest pain or palpitations Respiratory/Chest Respiratory/Chest: Reports cough; Denies dyspnea Gastrointestinal Gastrointestinal: Reports abdominal pain, diarrhea, nausea and vomiting; Denies melena Genitourinary Genitourinary ED: Denies dysuria or hematuria Musculoskeletal Musculoskeletal: Denies back pain or neck pain Integumentary Denies abscess or rash Neurologic Neurologic: Denies headache(s) or weakness Allergic/Immunologic Allergic/Immunologic ED: Denies mouth swelling or urticaria EXAM Physical Exam Const Vital Signs: 07/24/24 07:45 07/24/24 09:45 Temperature 97 F L Temperature Source Temporal Pulse Rate 79 74 Respiratory Rate 14 16 Blood Pressure 131/78 H 135/88 H Blood Pressure Mean 95 103 Pulse Ox 98 99 Oxygen Delivery Method Room Air Positive well nourished and well developed Constitutional Narrative: BMI is 50.8 General Appearance ED: well developed and NAD HEENT Reports moist mucous membranes Neck supple and no JVD Resp normal respiratory effort and clear to auscultation bilaterally Cardio regular rate and regular rhythm GI non-distended Palpation: soft and tender epigastric, LUQ and RUQ; Negative for guarding or rebound tenderness present Neuro CN's II-XII intact bilaterally, moves all extremities and no sensory deficits noted Sensorium / Orientation: alert Motor Exam: strength 5/5 throughout Psych mental status grossly normal MDM MDM MDM Narrative Medical decision making narrative: Differential diagnosis includes gastroenteritis, bowel obstruction, perforation,electrolyte abnormality, dehydration, pancreatitis, cholecystitis, cholelithiasis, gastritis, and viral illness. CBC will be obtained to assess for leukocytosis and anemia. Comprehensive metabolic profile will be obtained to assess for hepatic function, renal function, and electrolyte abnormality. Lipase will be obtained to assess for pancreatitis. Urinalysis will be obtainedto assess for urinary tract infection andhematuria. CT scan of the abdomen andpelvis will be obtained to assess for bowel obstruction, pancreatitis, and cholecystitis. History & Record Review Additional record(s) reviewed:: Prior inpatient record, Prior ED visit and Priorlabs Lab Data Attestation: I reviewed the patient's lab results. Lab results narrative: CBC was reviewed and was within normal limits. Comprehensive metabolic profile was reviewed. Glucose was slightly elevated 209. The remainder is within normal limits. Lipase was reviewed and was normal at 18. Labs: Laboratory Results - last 24 hr 07/24/24 09:20 WBC 10.4 RBC 6.17 Hgb 16.0 Hct 49.6 MCV 80.4 MCH 25.9 L MCHC 32.3 RDW Std Deviation 41.0 RDW Coeff of Masha 14.1 Plt Count 178 MPV 11.1 Immature Gran % (Auto) 0.200 Neut % (Auto) 86.9 H Lymph % (Auto) 5.6 L Mohave % (Auto) 6.2 Eos % (Auto) 0.7 Baso % (Auto) 0.4 Absolute Neuts (auto) 9.0 H Absolute Lymphs (auto) 0.58 L Nucleated RBC % 0 Sodium 140 Potassium 3.6 Chloride 103 Carbon Dioxide 24.8 Anion Gap 12 BUN 17 Creatinine 0.81 Estim Creat Clear Calc 154.59 Est GFR (MDRD) Non-Af 105 BUN/Creatinine Ratio 21.6 H Glucose 209 H Calcium 9.6 Total Bilirubin 0.75 AST 19 ALT 15 Alkaline Phosphatase 97 Total Protein 7.8 Albumin 3.8 Globulin 4.0 Albumin/Globulin Ratio 0.9 Lipase 18 Radiography Diagnostic Testing: Clinical Impression(s) from Imaging Studies Abdomen/Pelvis CT 07/24/24 08:55 IMPRESSION: Fluid-filled slightly dilated small bowel loops with fluid in the colon. This may represent either early or incomplete small bowel obstruction. Ileus may also have a similar appearance. Free intraperitoneal air. Small gallstones are layered in the gallbladder lumen. Red Alert: Free air The critical information above was relayed directly by me by telephone to Des Barillas on 07/24/2024 at 10:38 am with readback verification. Reading Location: [facility]-1 CT scan of the abdomen and pelvis was obtained. There is either early or incomplete small bowel obstruction. There is free intraperitoneal air noted. This was interpreted by the radiologist and was also independently reviewed by myself. Management Discussion w/another healthcare provider: Rope Machine Setter and Radiologist Treatment and Re-Evaluation :: Patient was given morphine and Zofran. Patient was given a dose of Zosyn. Patient was advised of his findings. Case was discussed with Dr. Ricardo, general surgery on-call. He will be in to evaluate the patient. He recommendedplacing an NG tube. He also recommended repeating the CT scan with oral contrast. He noted that the patient was seen here last September and had similar findings on the CT scan at that time. Patient was transferred to [facility] at that time. Patient had no surgery at that time. He will admit the patient to his service. Discharge Plan Dx/Rx/DC Orders Clinical Impression: Small bowel obstruction, Type 2 diabetes mellitus with hyperglycemia, Free intraperitoneal air, Hypertension Disposition Disposition: Acute Care Hospital [facility] Discharge Date/Time: 07/24/24 14:27 What to do if you have Problems For any increased pain, shortness of breath, bleeding, nausea or vomiting, chestpain, or any unexpected problems, contact your Primary Care Provider. Call [facility] ([phone]) or report tothe closest Emergency Room. Call 911 if necessary. 07/24/24 1810 Cosigner Signature (if applicable): CC: Dr. Curtis Hernandez MD ~ Signed [facility]06-18-2025 History and physical note Author Maxwell Ricardo [facility] Note Date/Time July 24, 2024 12:1 6pm [facility] Medical Records Department [address] [place] [address] H&P Exam - Surgical 07/24/24 1214 MR#: [id number] Acct: [id number] Name: MAXWELL SANDHU Rep #:[id number] 07 : 1970 54 From: Maxwell kaplan MD PCP: Dr. Curtis Hernandez MD Status:R EG ER Location: ED HPI - General HPI Narrative MAXWELL SANDHU, is a 54 M who presents with nausea and vomiting. The patient hasalso been having some loose stools over the last couple days. Patient reports the pain started yesterday is in the epigastric area and it is minor. He reports no abdominal pain leading up to this. He denies fevers or chills. [facility] Medical History (Updated 07/24/24 @ 11:[address] Des Barillas DO) (HFpEF) heart failure with preserved ejection fraction Sleep apnea Seizures Stroke/cerebrovascular accident Hypertension High cholesterol Diabetes Home Medications ?Medication ?Instructions ?Recorded ?Last Taken ?Type levetiracetam 500 mg tablet 500 mg PO BID keppra 10/3107/23/24 History aspirin 81 mg chewable tablet 1 tab PO DAILY heart hea lth 06/03/24 07/23/24 History insulin lispro 100 unit/mL 10 unit subcut TID diabetes #15 mL 06/04/24 07/23/24 Rx subcutaneous pen apixaban 5 mg tablet 5 mg PO BID #134 tabs 07/23/24 Rx furosemide 40 mg tablet 40 mg PO DAILY 30 days #30 t abs 07/05/24 07/23/24 Rx diltiazem HCl 120 mg 120 mg PO Q12H 07/24/2407/07 History capsule,extended release 24 hr insulin glargine 100 unit/mL (3 30 unit subcut DAILY d iabetes 07/24/24 07/23/24 History mL) subcutaneous pen (Lantus Solostar U-100 Insulin) nifedipine 30 mg tablet,extended 30 mg PO DAILY 07/23/24 History release Allergy/AdvReac Type Severity Reaction Status Date / Time No Known Allergies Allergy Verified 07/24/24 07:46 Family History (Updated 07/02/24 @ 16:[address] Des Hamm DO) Other Heart disease Surgical History (Updated 07/24/24 @ 08:[address] Des Barillas DO) Hx of arthroscopic knee surgery Hx of neck surgery Social History (Updated 07/24/24 @ 08:[address] Des Barillas DO) household members: spouse and family housing: house Smoking Status: Never smoker Smokeless tobacco user: snuff ROS Constitutional Constitutional: Denies anorexia, chills, fatigue or fever(s) Eyes Eyes: Denies blurry vision ENT HEENT: Denies abnormal hearing Cardiovascular Cardiovascular: Denies chest pain Respiratory/Chest Respiratory/Chest: Denies cough or dyspnea Gastrointestinal Gastrointestinal: Reports abdominal pain, nausea and vomiting; Denies constipation, diarrhea or dysphagia Genitourinary Genitourinary: Denies change in urinary stream Musculoskeletal Musculoskeletal: Denies abnormal gait Neurologic Neurologic: Denies abnormal gait Psychiatric Psychiatric: Denies anxiety Endocrine Endocrinology: Denies flushing Hematologic/Lymphatic Hematologic/Lymphatic: Denies easy bleeding Vital Signs Vital Signs Vital Signs: 07/24/24 07:45 07/24/24 09:45 Temperature 97 F L Temperature Source Temporal Pulse Rate 79 74 Respiratory Rate 14 16 Blood Pressure 131/78 H 135/88 H Blood Pressure Mean 95 103 Pulse Ox 98 99 Oxygen Delivery Method Room Air Weight Weight: 344 lb Body Mass Index (BMI) 50.8 Physical Exam Const oriented x3 and no apparent distress Resp normal respiratory effort GI soft to palpation and non-tender Results Lab / Micro Data 07/24/24 09:20 07/24/24 09:20 Labs: Laboratory Results - last 24 hr 07/24/24 09:20: WBC 10.4, RBC 6.17, Hgb 16.0, Hct 49.6, MCV 80.4, MCH 25.9 L, MCHC 32.3, RDW Std Deviation 41.0, RDW Coeff of Masha 14.1, Plt Count 178, MPV 11.1, Immature Gran % (Auto) 0.200, Neut % (Auto) 86.9 H, Lymph % (Auto) 5.6 L, Mohave % (Auto) 6.2, Eos % (Auto) 0.7, Baso % (Auto) 0.4, Absolute Neuts (auto) 9.0 H, Absolute Lymphs (auto) 0.58 L, Nucleated RBC % 0, Sodium 140, Potassium 3.6, Chloride 103, Carbon Dioxide 24.8, Anion Gap 12, BUN 17, Creatinine 0.81, Estim Creat Clear Calc 154.59, Est GFR (MDRD) Non-Af 105, BUN/Creatinine Ratio 21.6 H, Glucose 209 H, Calcium 9.6, Total Bilirubin 0.75, AST 19, ALT 15, Alkaline Phosphatase 97, Total Protein 7.8, Albumin 3.8, Globulin 4.0, Albumin/Globulin Ratio 0.9, Lipase 18 07/24/24 11:51: Urine Color Yellow, Urine Clarity Sl. Cloudy, Urine pH 5.0, Ur Specific Conklin 1.020, Urine Protein 100 H, Urine Glucose (UA) Normal, Urine Ketones 5 H, Urine Occult Blood 25 H, Urine Nitrite Positive H, Urine Bilirubin 1 H, Urine Urobilinogen 1 H, Ur Leukocyte Esterase 100 H, Urine RBC 0 SEEN, Urine WBC 10-25 SEEN, Ur Squamous Epith Cells 0-5 SEEN, Urine Bacteria 2+, UrineMucus 0 SEEN Imaging Radiology Impression Abdomen/Pelvis CT 07/24/24 08:55 IMPRESSION: Fluid-filled slightly dilated small bowel loops with fluid in the colon. This may represent either early or incomplete small bowel obstruction. Ileus may also have a similar appearance. Free intraperitoneal air. Small gallstones are layered in the gallbladder lumen. Red Alert: Free air The critical information above was relayed directly by me by telephone to Des Barillas on 07/24/2024 at 10:38 am with readback verification. Reading Location: [facility]-1 Assessment & Plan Assessment/Plan (1) Free intraperitoneal air: PLAN: The patient has some bubbles of free air. Upon questioning the patient hereports this is the exact situation he was in a few months ago. I reviewed the records and he was here in September and did have a CT scan that showed bubbles of free air with no known origin. He had a CT scan with oral contrast that did notshow any leak and he did not require any surgery. His current CAT scan appears very similar to his last CAT scan with bubbles of air over the liver. There is no sign as to where the area originated. I would like to place an NG for suctioning and then perform an oral contrast CAT scan. Hold Eliquis. I will start him on antibiotics and a PPI. Maxwell Ricardo MD Pager: [facility] [address] [place] [address] [address], [address] [place] [address] Office: 07/24/24 0785 <Electronically signed by Maxwell Ricardo MD> Cosigner Signature (if applicable): CC: Dr. Maxwell Ricardo MD; Dr. Curtis Hernandez MD~ Signed [facility] Work Phone: [phone] 539-923706-18-2025 History and physical note Author Maxwell Ricardo [facility] Note Date/Time July 24, 2024 12:1 6pm [facility] Medical Records Department [address] [place] [address] H&P Exam - Surgical 07/24/24 1214 MR#: [id number] Acct: [id number] Name: MAXWELL SANDHU Rep #:[id number] 07 : 1970 54 From: Maxwell kaplan MD PCP: Dr. Curtis Hernandez MD Status:R EG ER Location: ED HPI - General HPI Narrative MAXWELL SANDHU, is a 54 M who presents with nausea and vomiting. The patient hasalso been having some loose stools over the last couple days. Patient reports the pain started yesterday is in the epigastric area and it is minor. He reports no abdominal pain leading up to this. He denies fevers or chills. [facility] Medical History (Updated 07/24/24 @ 11:[address] Des Barillas, ) (HFpEF) heart failure with preserved ejection fraction Sleep apnea Seizures Stroke/cerebrovascular accident Hypertension High cholesterol Diabetes Home Medications ?Medication ?Instructions ?Recorded ?Last Taken ?Type levetiracetam 500 mg tablet 500 mg PO BID keppra 10/3107/23/24 History aspirin 81 mg chewable tablet 1 tab PO DAILY heart hea lth 06/03/24 07/23/24 History insulin lispro 100 unit/mL 10 unit subcut TID diabetes #15 mL 06/04/24 07/23/24 Rx subcutaneous pen apixaban 5 mg tablet 5 mg PO BID #134 tabs 07/23/24 Rx furosemide 40 mg tablet 40 mg PO DAILY 30 days #30 t abs 07/05/24 07/23/24 Rx diltiazem HCl 120 mg 120 mg PO Q12H 07/24/2407/07 History capsule,extended release 24 hr insulin glargine 100 unit/mL (3 30 unit subcut DAILY d iabetes 07/24/24 07/23/24 History mL) subcutaneous pen (Lantus Solostar U-100 Insulin) nifedipine 30 mg tablet,extended 30 mg PO DAILY 07/23/24 History release Allergy/AdvReac Type Severity Reaction Status Date / Time No Known Allergies Allergy Verified 07/24/24 07:46 Family History (Updated 07/02/24 @ 16:[address] Des Hamm DO) Other Heart disease Surgical History (Updated 07/24/24 @ 08:[address] Des Barillas DO) Hx of arthroscopic knee surgery Hx of neck surgery Social History (Updated 07/24/24 @ 08:[address] Des Barillas DO) household members: spouse and family housing: house Smoking Status: Never smoker Smokeless tobacco user: snuff ROS Constitutional Constitutional: Denies anorexia, chills, fatigue or fever(s) Eyes Eyes: Denies blurry vision ENT HEENT: Denies abnormal hearing Cardiovascular Cardiovascular: Denies chest pain Respiratory/Chest Respiratory/Chest: Denies cough or dyspnea Gastrointestinal Gastrointestinal: Reports abdominal pain, nausea and vomiting; Denies constipation, diarrhea or dysphagia Genitourinary Genitourinary: Denies change in urinary stream Musculoskeletal Musculoskeletal: Denies abnormal gait Neurologic Neurologic: Denies abnormal gait Psychiatric Psychiatric: Denies anxiety Endocrine Endocrinology: Denies flushing Hematologic/Lymphatic Hematologic/Lymphatic: Denies easy bleeding Vital Signs Vital Signs Vital Signs: 07/24/24 07:45 07/24/24 09:45 Temperature 97 F L Temperature Source Temporal Pulse Rate 79 74 Respiratory Rate 14 16 Blood Pressure 131/78 H 135/88 H Blood Pressure Mean 95 103 Pulse Ox 98 99 Oxygen Delivery Method Room Air Weight Weight: 344 lb Body Mass Index (BMI) 50.8 Physical Exam Const oriented x3 and no apparent distress Resp normal respiratory effort GI soft to palpation and non-tender Results Lab / Micro Data 07/24/24 09:20 07/24/24 09:20 Labs: Laboratory Results - last 24 hr 07/24/24 09:20: WBC 10.4, RBC 6.17, Hgb 16.0, Hct 49.6, MCV 80.4, MCH 25.9 L, MCHC 32.3, RDW Std Deviation 41.0, RDW Coeff of Masha 14.1, Plt Count 178, MPV 11.1, Immature Gran % (Auto) 0.200, Neut % (Auto) 86.9 H, Lymph % (Auto) 5.6 L, Mohave % (Auto) 6.2, Eos % (Auto) 0.7, Baso % (Auto) 0.4, Absolute Neuts (auto) 9.0 H, Absolute Lymphs (auto) 0.58 L, Nucleated RBC % 0, Sodium 140, Potassium 3.6, Chloride 103, Carbon Dioxide 24.8, Anion Gap 12, BUN 17, Creatinine 0.81, Estim Creat Clear Calc 154.59, Est GFR (MDRD) Non-Af 105, BUN/Creatinine Ratio 21.6 H, Glucose 209 H, Calcium 9.6, Total Bilirubin 0.75, AST 19, ALT 15, Alkaline Phosphatase 97, Total Protein 7.8, Albumin 3.8, Globulin 4.0, Albumin/Globulin Ratio 0.9, Lipase 18 07/24/24 11:51: Urine Color Yellow, Urine Clarity Sl. Cloudy, Urine pH 5.0, Ur Specific Conklin 1.020, Urine Protein 100 H, Urine Glucose (UA) Normal, Urine Ketones 5 H, Urine Occult Blood 25 H, Urine Nitrite Positive H, Urine Bilirubin 1 H, Urine Urobilinogen 1 H, Ur Leukocyte Esterase 100 H, Urine RBC 0 SEEN, Urine WBC 10-25 SEEN, Ur Squamous Epith Cells 0-5 SEEN, Urine Bacteria 2+, UrineMucus 0 SEEN Imaging Radiology Impression Abdomen/Pelvis CT 07/24/24 08:55 IMPRESSION: Fluid-filled slightly dilated small bowel loops with fluid in the colon. This may represent either early or incomplete small bowel obstruction. Ileus may also have a similar appearance. Free intraperitoneal air. Small gallstones are layered in the gallbladder lumen. Red Alert: Free air The critical information above was relayed directly by me by telephone to Des Barillas on 07/24/2024 at 10:38 am with readback verification. Reading Location: [facility]1 Assessment & Plan Assessment/Plan (1) Free intraperitoneal air: PLAN: The patient has some bubbles of free air. Upon questioning the patient hereports this is the exact situation he was in a few months ago. I reviewed the records and he was here in September and did have a CT scan that showed bubbles of free air with no known origin. He had a CT scan with oral contrast that did notshow any leak and he did not require any surgery. His current CAT scan appears very similar to his last CAT scan with bubbles of air over the liver. There is no sign as to where the area originated. I would like to place an NG for suctioning and then perform an oral contrast CAT scan. Hold Eliquis. I will start him on antibiotics and a PPI. Maxwell Ricardo MD Pager: [facility] [address] [place] [address] [address], [address] [place] [address] Office: 07/24/24 1216 <Electronically signed by Maxwell Ricardo MD> Cosigner Signature (if applicable): CC: Dr. Maxwell Ricardo MD; Dr. Curtis Hernandez MD~ Signed [facility] Work Phone: 1(420) 200-977206-18-2025 Radiology Diagnostic study note [facility] Imaging Services [address] [place], [place] [id number] Abdomen/Pel W ORAL Cont Only MR#: [id number] Acct: [id number] Name: MAXWELL SANDHU Rep #: [id number] : 1970 M 54 From: Santi Owens MD PCP: Dr. Curtis Hernandez MD Status: A DM IN Study:Abdomen/Pel W ORAL Cont Only Date of Ex am: 07/24/24 Exam# [id number] Ordering Dr: Des Barillas DO PROCEDURE: ABDOMEN/PEL W ORAL CONT ONLY 07/24/2024 REASON FOR EXAM: ABDOMINAL PAIN TECHNIQUE: ABDOMEN/PEL W ORAL CONT ONLY Noncontrast technique limits evaluation of the abdominal and pelvic viscera. Coronal and Sagittal reconstruction series were provided. One or more dose reduction techniques were used (e.g., Automated exposure control, adjustment of the mA and/or kV according to patient size, use of iterative reconstruction technique). Dose report: CTDI L volume: 23.97. DLP: 1419.55 mGy. ORAL CONTRAST TYPE: Gastrografin. COMPARISON: Comparison is made with prior study done earlier in the day. FINDINGS: Free intraperitoneal air. The non was evidence of an orogastric tube. Contrastis seen within the stomach and small bowel loops. Lung bases: Mild dependent atelectasis Liver: Normal size. No obvious mass. Gallbladder: Layering gallstones along the dependent portion of the gallbladder lumen. Spleen: Unremarkable Pancreas: Diffuse fatty atrophy. Adrenals: Small adenoma in the crux of the left adrenal gland. Kidneys: No urolithiasis. No hydronephrosis. Bladder: Unremarkable Bowel: There is less small bowel distention at this time. Sigmoid diverticulosis. Peritoneum / Retroperitoneum: Bones: Degenerative changes of the spine. CT/Abdomen/Pel W ORAL Cont Only IMPRESSION: Persistent intraperitoneal air. Orogastric tube has been placed. There is less distention of the small bowel loops at this time. Small gallstones. Reading Location: [place] [address] CC: Dr. Des Barillas DO; Dr. Curtis Hernandez MD ~ [employer] Worker: Signed [facility]06-18-2025 History and physical note [facility] Medical Records Department [address] [place] [address] H&P Exam - Surgical 07/24/24 1214 MR#: [id number] Acct: [id number] Name: MAXWELL SANDHU Rep #:[id number] 07 : 1970 54 From: Maxwell kaplan MD PCP: Dr. Curtis Hernandez MD Status:R ER Location: ED HPI - General HPI Narrative MAXWELL SANDHU, is a 54 M who presents with nausea and vomiting. The patient hasalso been having some loose stools over the last couple days. Patient reports the pain started yesterday is in the epigastric area and it is minor. He reports no abdominal pain leading up to this. He denies fevers or chills. [facility] Medical History (Updated 07/24/24 @ 11:[address] Des Barillas DO) (HFpEF) heart failure with preserved ejection fraction Sleep apnea Seizures Stroke/cerebrovascular accident Hypertension High cholesterol Diabetes Home Medications ?Medication ?Instructions ?Recorded ?Last Taken ?Type levetiracetam 500 mg tablet 500 mg PO BID keppra 10/3107/23/24 History aspirin 81 mg chewable tablet 1 tab PO DAILY heart hea lth 06/03/24 07/23/24 History insulin lispro 100 unit/mL 10 unit subcut TID diabetes #15 mL 06/04/24 07/23/24 Rx subcutaneous pen apixaban 5 mg tablet 5 mg PO BID #134 tabs 07/23/24 Rx furosemide 40 mg tablet 40 mg PO DAILY 30 days #30 t abs 07/05/24 07/23/24 Rx diltiazem HCl 120 mg 120 mg PO Q12H 07/24/2407/07 History capsule,extended release 24 hr insulin glargine 100 unit/mL (3 30 unit subcut DAILY d iabetes 07/24/24 07/23/24 History mL) subcutaneous pen (Lantus Solostar U-100 Insulin) nifedipine 30 mg tablet,extended 30 mg PO DAILY 07/23/24 History release Allergy/AdvReac Type Severity Reaction Status Date / Time No Known Allergies Allergy Verified 07/24/24 07:46 Family History (Updated 07/02/24 @ 16:[address] Des Hamm DO) Other Heart disease Surgical History (Updated 07/24/24 @ 08:[address] Des Barillas DO) Hx of arthroscopic knee surgery Hx of neck surgery Social History (Updated 07/24/24 @ 08:[address] Des Barillas DO) household members: spouse and family housing: house Smoking Status: Never smoker Smokeless tobacco user: snuff ROS Constitutional Constitutional: Denies anorexia, chills, fatigue or fever(s) Eyes Eyes: Denies blurry vision ENT HEENT: Denies abnormal hearing Cardiovascular Cardiovascular: Denies chest pain Respiratory/Chest Respiratory/Chest: Denies cough or dyspnea Gastrointestinal Gastrointestinal: Reports abdominal pain, nausea and vomiting; Denies constipation, diarrhea or dysphagia Genitourinary Genitourinary: Denies change in urinary stream Musculoskeletal Musculoskeletal: Denies abnormal gait Neurologic Neurologic: Denies abnormal gait Psychiatric Psychiatric: Denies anxiety Endocrine Endocrinology: Denies flushing Hematologic/Lymphatic Hematologic/Lymphatic: Denies easy bleeding Vital Signs Vital Signs Vital Signs: 07/24/24 07:45 07/24/24 09:45 Temperature 97 F L Temperature Source Temporal Pulse Rate 79 74 Respiratory Rate 14 16 Blood Pressure 131/78 H 135/88 H Blood Pressure Mean 95 103 Pulse Ox 98 99 Oxygen Delivery Method Room Air Weight Weight: 344 lb Body Mass Index (BMI) 50.8 Physical Exam Const oriented x3 and no apparent distress Resp normal respiratory effort GI soft to palpation and non-tender Results Lab / Micro Data 07/24/24 09:20 07/24/24 09:20 Labs: Laboratory Results - last 24 hr 07/24/24 09:20: WBC 10.4, RBC 6.17, Hgb 16.0, Hct 49.6, MCV 80.4, MCH 25.9 L, MCHC 32.3, RDW Std Deviation 41.0, RDW Coeff of Masha 14.1, Plt Count 178, MPV 11.1, Immature Gran % (Auto) 0.200, Neut % (Auto) 86.9 H, Lymph % (Auto) 5.6 L, Mohave % (Auto) 6.2, Eos % (Auto) 0.7, Baso % (Auto) 0.4, AbsoluteNeuts (auto) 9.0 H, Absolute Lymphs (auto) 0.58 L, Nucleated RBC % 0, Sodium 140, Potassium 3.6, Chloride 103, Carbon Dioxide 24.8, Anion Gap 12, BUN 17, Creatinine 0.81, Estim Creat Clear Calc 154.59, Est GFR (MDRD) Non-Af 105, BUN/Creatinine Ratio 21.6 H, Glucose 209 H, Calcium 9.6, Total Bilirubin 0.75, AST 19, ALT 15, Alkaline Phosphatase 97, Total Protein 7.8, Albumin 3.8, Globulin 4.0, Albumin/Globulin Ratio 0.9, Lipase 18 07/24/24 11:51: Urine Color Yellow, Urine Clarity Sl. Cloudy, Urine pH 5.0, Ur Specific Conklin 1.020, Urine Protein 100 H, Urine Glucose (UA) Normal, Urine Ketones 5 H, Urine Occult Blood 25 H, Urine Nitrite Positive H, Urine Bilirubin 1 H, Urine Urobilinogen 1 H, Ur Leukocyte Esterase 100 H, Urine RBC 0 SEEN, Urine WBC 10-25 SEEN, Ur Squamous Epith Cells 0-5 SEEN, Urine Bacteria 2+, UrineMucus 0 SEEN Imaging Radiology Impression Abdomen/Pelvis CT 07/24/24 08:55 IMPRESSION: Fluid-filled slightly dilated small bowel loops with fluid in the colon. This may represent either early or incomplete small bowel obstruction. Ileus may also have a similar appearance. Free intraperitoneal air. Small gallstones are layered in the gallbladder lumen. Red Alert: Free air The critical information above was relayed directly by me by telephone to Des Barillas on 07/24/2024 at 10:38 am with readback verification. Reading Location: [facility]-IR-1 Assessment & Plan Assessment/Plan (1) Free intraperitoneal air: PLAN: The patient has some bubbles of free air. Upon questioning the patient hereports this is the exact situation he was in a few months ago. I reviewed the records and he was here in September and didhave a CT scan that showed bubbles of free air with no known origin. He had a CT scan with oral contrast that did notshow any leak and he did not require any surgery. His current CAT scan appears very similar to his last CAT scan with bubbles of air over the liver. There is no sign as to where the area originated. I would like to place an NG for suctioning and then perform an oral contrast CAT scan. Hold Eliquis. I will start him on antibiotics and a PPI. Maxwell Ricardo MD Pager: [facility] [address] [place] [address], [address] [place] [address] Office: 07/24/24 1216 Cosigner Signature (if applicable): CC: Dr. Maxwell Ricardo MD; Dr. Curtis Hernandez MD~ Signed [facility]06-18-2025 Radiology Diagnostic study note [facility] [address] [place] [address] Abdomen/Pelvis W IV Cont ONLY MR#: [id number] Acct: [id number] Name: MAXWELL SANDHU Rep #: [id number] 27 : 1970 M 54 From: Santi Owens MD PCP: Dr. Curtis Hernandez MD Status: R EG ER Study:Abdomen/Pelvis W IV Cont ONLY Date of E xam: 07/24/24 Exam# [id number] Ordering Dr: Des Barillas DO PROCEDURE: ABDOMEN/PELVIS W IV CONT ONLY 07/24/2024 REASON FOR EXAM: ABDOMINAL PAIN Nausea and vomiting. TECHNIQUE: ABDOMEN/PELVIS W IV CONT ONLY. Coronal and Sagittal reconstruction series were provided. ORAL CONTRAST TYPE: None. CONTRAST: Isovue-300 VOLUME: 100 mL One or more dose reduction techniques were used (e.g., Automated exposure control, adjustment of the mA and/or kV according to patient size, use of iterative reconstruction technique. RADIATION DOSE SUMMARY: CTDlvol: 15.5 mGy DLP: 1422.95 mGycm COMPARISON: Prior study dated September 07, 2023. FINDINGS: Lung bases: Mild dependent atelectasis. Calcified granuloma in the medial rightlower lobe. Coronaryartery calcification. There is evidence of free intra peritoneal air. Liver: Normal size. No mass. Gallbladder: Multiple layering gallstones. Spleen: Normal size. Pancreas: Diffuse fatty atrophy. Adrenals: Findings suggestive of a 1.4 cm adenoma in the crux of the left adrenal gland. Kidneys: Normal renal sizes. No hydronephrosis. Bladder: Unremarkable Bowel: Sigmoid diverticulosis. Dilated small bowel loops which are fluid- filleddown to the distal portion. Fluid is also seen in the colon. Findings suggestive of either a partial or early small-bowel obstruction or possible ileus. Appendix: The appendix is not identified. There is no inflammatory process identified in the right lower quadrant to suggest appendicitis. Lymph nodes: No suspicious lymph node enlargement. Vasculature: The abdominal aorta and IVC are normal. Peritoneum / Retroperitoneum: Free intraperitoneal air. Small amount of free fluid is seen in the pelvis. Bones: Degenerative changes of the spine. CT/Abdomen/Pelvis W IV Cont ONLY IMPRESSION: Fluid-filled slightly dilated small bowel loops with fluid in the colon. This may represent either early or incomplete small bowel obstruction. Ileus may also have a similar appearance. Free intraperitoneal air. Small gallstones are layered in the gallbladder lumen. Red Alert: Free air The critical information above was relayed directly by me by telephone to Des Barillas on 07/24/2024 at 10:38 am with readback verification. Reading Location: [place] [address] CC: Dr. Des Barillas, DO; Dr. Curtis Hernandez MD ~ [employer] Worker: Signed [facility]06-10-2025 Instructions* Patient Instructions* Peggy Way CNP - 07/16/2024 1:57 PM EDT Recommend routine eye exam. Continue Keppra 500 mg twice a day. Refills submitted. Monitor for any breakthrough episodes or spells. Call with any further questions or concerns. Follow-up in 6 months or sooner as needed. [phone] Seizure First Aid Always stay with the person until the seizure is over. Pay attention to how long the seizure lasts. Most usually last a few seconds to a few minutes. Prevent injury by moving objects away from the person. Do not hold the person down. This could cause more injury. Do not put anything in the person's mouth. Their jaw and facial muscles will tighten during a seizure causing them to bite down. Make sure they are breathing ok. If they are lying down turn them on their side with their mouth pointing towards the ground to prevent saliva from blocking their airway. Sometimes during a seizures it can look like they have stopped breathing. This will happen when the muscles tighten in their chest but when the seizure ends they will relax and breathing should resume to normal. Avoid giving anything to eat or drink until the person is fully awake and alert. For seizure lasting longer than 5 minutes or if the person does not wake up after a seizure call 911. Seizure Safety Tips Avoid driving if you continue to have seizures or if you are experiencing side effects of your seizure medication that is affecting your ability to be safe on the road. It is recommended that you be seizure free for 6 months prior to resuming driving. Caution around open malone (have a reina) or open flames. Avoid unprotected heights such as working on ladders, especially if seizures are not controlled. Make sure the proper safety guards are in place on large equipment and power tools. Avoid use of these if your seizures are not controlled. Take your medication, as instructed, every day. Monitor for any changes in mood or behavior including depression, anxiety, and suicidal thoughts orideas. documented in this [id number] NotePatient ID: Maxwell Sandhu is a 54 y.o. male. Assessment/Plan: Problem List Diagnosed Seizure (HCC) Last seizure September 2023 Continue Keppra 500 mg BID. Side effects of the medication discussed. Patient denies any side effects of medication and verbalizes compliance with taking medication as instructed. Encouraged to call when further refills are needed. Seizure precautions and safety measures discussed. Avoid unprotected heights, open malone alone, and avoid use of power tools and equipment without the proper safe guards in place. Patient is aware if another seizure occurs he would need to discontinue driving until he is seizure free for 6 months. Avoid any possible triggers. Maintain adequate sleep, avoid missed medications, maintain healthy diet and exercise habits, avoid excessive alcohol use, and avoid drug use. 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 EEG 11/29/2023: Normal MRI Brain ([facility]) 09/08/2023: Potential focus of mild reduced diffusivity in the chantel, slightly right of midline, which could potentially represent an acute/subacute infarct vs artifact - later determined to be artifact vs stroke. Recommend dilated fundoscopy and perimetry. Patient was encouraged to schedule follow-up eye exam. Contact for [facility] provided. Follow-up: 6 months or sooner as needed. Relevant Medications levETIRAcetam (KEPPRA) 500 MG tablet Atrial fibrillation (HCC) - Primary Continue follow-up with PCP/Cardiology. Continue Eliquis. Fall precautions/bleeding precautions discussed. Relevant Medications furosemide (LASIX) 40 MG tablet Follow-up in 6 months or sooner as needed. Time statement: A total of 30 minutes were spent on this encounter, which includes the time reviewing the patient's diagnostic tests, seeing the patient, speaking with nursing staff, and documenting in the record. Peggy Way, MSN, INSERTING PRESS OPERATOR [facility] Neurology Subjective HPI Maxwell Sandhu is a 54 year old male here for seizure follow-up. His daughter and grandson accompany him to the appointment today. He reports 1 week ago he was diagnosed with CHF and shortly before that he was diagnosed with blood clots in his lungs and went into atrial fibrillation. He is now on Eliquis. He denies any seizure or seizure like episodes since his last follow-up. He noticed painless loss of vision of left eye that began the morning of 11/03/2023. He states if he covers his right eye he will see a vasquez spot in the central vision of her left eye. He states when both eyes are open he does not notice this. Collaborative history for today's visit was taken from patient, family, and [facility] chart. He developed sudden onset of left painless central scotoma in the morning of 11/03/2023. No headache or migraine. One month prior he was treated at [facility] for numbness on his left lip followed by curling of his left hand and leg that sabino on for about 3 minutes in duration up to several hours. Stroke was of concern with that admission, specifically pontine infarct but this was later determined to be artifact and his symptoms were likely related to seizure disorder. He was placed on aspirin 81 mg daily and atorvastatin 40 mg daily for stroke prevention. He was diagnosed to be having seizures and started on Keppra 500 mg twice a day. He has not had any further episodes with the left side since Keppra was started. He denies any side effects or concerns with medication. He states vision changes is about the same. If he covers his right eye he will see a vasquez spot in his central vision of his left eye, but when both eyes are open he does not notice this. EEG 11/29/2023: Normal CTA Head Neck 11/03/2023: No acute intracranial process. No large vessel occlusion. No significant intracranial stenosis. No aneurysm. Dural venous sinuses are patent. Common carotids and internal carotids show no significant stenosis or dissection. The left vertebral artery shows no dissection or significant stenosis. There is severe stenosis in the proximal V1, secondary to either a soft plaque or mural thrombus. MRI Brain [facility] 09/08/2023: Potential focus of mild reduced diffusivity in the chantel, slightly right of midline, which could potentially represent an acute/subacute infarct vs artifact - later determined to be artifact vs stroke. He presents to his appointment today in a wheelchair. 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 He's able to ambulate with a walker but only for short distances. Review of patients current medication list along with allergies, past medical history, surgical history, family history, and social history was reviewed and updated as appropriate. Review of Systems Constitutional: Negative for activity change, appetite change, chills, fatigue, fever and unexpected weight change (more content not included)...[facility]06-10-2025 History of Present illness Narrative* Peggy Way, INSERTING PRESS OPERATOR - 07/16/2024 1:50 PM EDT Patient ID: Maxwell Sandhu is a 54 y.o. male. Assessment/Plan: Problem List Diagnosed Seizure (HCC) Last seizure September 2023 Continue Keppra 500 mg BID. Side effects of the medication discussed. Patient denies any side effects of medication and verbalizes compliance with taking medication as instructed. Encouraged to call when further refills are needed. Seizure precautions and safety measures discussed. Avoid unprotected heights, open malone alone, and avoid use of power tools and equipment without the proper safe guards in place. Patient is aware if another seizure occurs he would need to discontinue driving until he is seizure free for 6 months. Avoid any possible triggers. Maintain adequate sleep, avoid missed medications, maintain healthy diet and exercise habits, avoid excessive alcohol use, and avoid drug use. 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 EEG 11/29/2023: Normal MRI Brain ([facility]) 09/08/2023: Potential focus of mild reduced diffusivity in the chantel, slightly right of midline, which could potentially represent an acute/subacute infarct vs artifact - later determined to be artifact vs stroke. Recommend dilated fundoscopy and perimetry. Patient was encouraged to schedule follow-up eye exam. Contact for [facility] provided. Follow-up: 6 months or sooner as needed. Relevant Medications levETIRAcetam (KEPPRA) 500 MG tablet Atrial fibrillation (HCC) - Primary Continue follow-up with PCP/Cardiology. Continue Eliquis. Fall precautions/bleeding precautions discussed. Relevant Medications furosemide (LASIX) 40 MG tablet Follow-up in 6 months or sooner as needed. Time statement: A total of 30 minutes were spent on this encounter, which includes the time reviewing the patient's diagnostic tests, seeing the patient, speaking with nursing staff, and documenting in the record. Peggy Way, MSN, INSERTING PRESS OPERATOR [facility] Neurology Subjective HPI Maxwell Sandhu is a 54 year old male here for seizure follow-up. His daughter and grandson accompanyhim to the appointment today. He reports 1 week ago he was diagnosed with CHF and shortly before that he was diagnosed with blood clots in his lungs and went into atrial fibrillation. He is now on Eliquis. He denies any seizure or seizure like episodes since his last follow-up. He noticed painless loss of vision of left eye that began the morning of 11/03/2023. He states if hecovers his right eye he will see a vasquez spot in the central vision of her left eye. He states when both eyes are open he does not notice this. Collaborative history for today's visit was taken from patient, family, and [facility] chart. He developed sudden onset of left painless central scotoma in the morning of 11/03/2023. No headacheor migraine. One month prior he was treated at [facility] for numbness on his left lip followed by curlingof his left hand and leg that sabino on for about 3 minutes in duration up to several hours. Stroke was of concern with that admission, specifically pontine infarct but this was later determined to be artifact and his symptoms were likely related to seizure disorder. He was placed on aspirin 81 mg daily and atorvastatin 40 mg daily for stroke prevention. He was diagnosed to be having seizures and started on Keppra 500 mg twice a day. He has not had any further episodes with the left side since Keppra was started. He denies any side effects or concerns with medication. He states vision changes is about the same. If he covers his right eye he will see a vasquez spot in his central vision of his left eye, but when both eyes are open he does not notice this. EEG 11/29/2023: Normal CTA Head Neck 11/03/2023: No acute intracranial process. No large vessel occlusion. No significant intracranial stenosis. No aneurysm. Dural venous sinuses are patent. Common carotids and internal carotids show no significant stenosis or dissection. The left vertebral artery shows no dissection or si gnificant stenosis. There is severe stenosis in the proximal V1, secondary to either a soft plaque or mural thrombus. MRI Brain [facility] 09/08/2023: Potential focus of mild reduced diffusivity in the chantel, slightly right of midline, which could potentially represent an acute/subacute infarct vs artifact - later determined to be artifact vs stroke. He presents to his appointment today in a wheelchair. 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 He's able to ambulate with a walker but only for short distances. Review of patients current medication list along with allergies, past medical history, surgical history, family history, and social history was reviewed and updated as appropriate. Review of Systems Constitutional: Negative for activity change, appetite change, chills, fatigue, fever and unexpected weight change. HENT: Negative for trouble swallowing. Eyes: Positive for visual disturbance. Respiratory: Negative for cough, shortness of breath and wheezing. Cardiovascular: Negative for chest pain and palpitations. Gastrointestinal: Negative for abdominal pain, nausea and vomiting. Endocrine: Negative for polydipsia, polyphagia and polyuria. Genitourinary: Negative for difficulty urinating. Musculoskeletal: Positive for gait problem. Negative for arthralgias, back pain and neck pain. Skin: Negative for rash. Neurological: Positive for weakness. Negative for dizziness, tremors, seizures, syncope, light-headedness and headaches. Psychiatric/Behavioral: Negative for confusion, decreased concentration, dysphoric mood and sleep disturbance. The patient is not nervous/anxious. Objective BP 130/85 (BP Location: Right arm, Patient Position: Sitting, BP Cuff Size: X- large Adult) Pulse 62 Resp 18 SpO2 95% Neurological Exam Mental Status Awake, alert and oriented to person, place and time. Oriented to person, place and time. Oriented to person, place, and time. Speech is normal. Language is fluent with no aphasia. Cranial Nerves CN II: Visual acuity is normal. Vasquez scotoma to central vision with right eye closed.. Visual raymond full to confrontation. CN III, IV, : Extraocular movements intact bilaterally. Normal lids and orbits bilaterally. Pupils equal round and reactive to light bilaterally. CN V: Facial sensation is normal. CN VII: Full and symmetric facial movement. CN VIII: Hearing is normal. CN IX, X: Palate elevates symmetrically. Normal gag reflex. CN XI: Shoulder shrug strength is normal. CN XII: Tongue midline without atrophy or fasciculations. Motor Normal muscle bulk throughout. Strength is 5/5 in all four extremities except as noted. Slight BLE weakness.. Sensory Sensation is intact to light touch, pinprick, vibration and proprioception in all four extremities. Reflexes Deep tendon reflexes are 2+ and symmetric in all four extremities. Coordination [id number], rapid alternating movements and [id number] normal bilaterally without dysmetria. Gait Normal gait. Normal Tandem Gait Test. Not tested. Primarily wheelchair bound due to spinal cord injury.. Physical Exam Vitals and nursing note reviewed. Constitutional: Appearance: He is well-developed. Comments: Patient is very pleasant and cooperative for exam. He is well groomed and dressed appropriate for season. HENT: Head: Normocephalic and atraumatic. Eyes: General: Lids are normal. Extraocular Movements: Extraocular movements intact. Pupils: Pupils are equal, round, and reactive to light. Cardiovascular: Rate and Rhythm: Normal rate and regular rhythm. Heart sounds: No murmur heard. Pulmonary: Effort: Pulmonary effort is normal. No respiratory distress. Breath sounds: Normal breath sounds. No wheezing. Abdominal: General: Bowel sounds are normal. There is no distension. Palpations: Abdomen is soft. Musculoskeletal: General: Normal range of motion. Cervical back: Normal range of motion and neck supple. Skin: General: Skin is warm and dry. Findings: No rash. Neurological: Mental Status: He is oriented to person, place, and time. Cranial Nerves: No cranial nerve deficit. Coordination: Coordination is intact. Gait: Gait is intact. Tandem walk normal. Deep Tendon Reflexes: Reflexes are normal and symmetric. Psychiatric: Speech: Speech normal. Behavior: Behavior normal. Thought Content: Thought content normal. Judgment: Judgment normal. documented in this [id number] Discharge summary [facility] Medical Records Department [address] [place] [address] Instructions for Home/Discharge Instructions 07/05/24 1152 MR#: [id number] Acct: [id number] Name: MAXWELL SANDHU Rep #:[id number] : 1970 54 From: Lawrence parikh DO PCP: Dr. Curtis Hernandez MD Status:A DM IN Discharge Instructions Diet Discharge Diet: 8 Cup Fluid Restriction, 4000 mg Sodium Diet and Carb Control Diet DC O2, CPAP, BIPAP needs Home O2 Discharge instructions: No Dressing / Incision Discharge Activity: No Restrictions Follow Up Care Test Results: Test results from this visit will be discussed in further detail at your follow- up appointment, if applicable. Discharge Plan Admission Admit Date/Time: 07/02/24 16:06 Primary Reason for Your Visit: Shortness of breath Attending Provider: Lawrence Cary Primary Care Provider: Curtis Hernandez Consulting Providers: Des Hamm Discharge Orders/Prescriptions Prescriptions: New furosemide 40 mg Tablet 40 mg PO DAILY 30 Days Qty: 30 2RF Continued levetiracetam 500 mg tablet 500 mg PO BID Jardiance 10 mg tablet 10 mg PO DAILY apixaban 5 mg tablet 5 mg PO BID Qty: 134 0RF aspirin 81 mg tablet,chewable 1 tab PO DAILY atorvastatin 40 mg tablet 40 mg PO QHS diltiazem HCl 120 mg Capsule,Extended Release 24hr 120 mg PO Q12 120 Days Qty: 240 0RF insulin lispro 100 unit/mL insulin pen 10 unit subcut TID Qty: 15 0RF Protocol: 6. Sliding Scale Insulin Custom Condition: mg/dl range Dose/Route: Number of Units Protocol Text: Custom Sliding Scale Rx Instructions: patient on sliding scale with meals subcutaneously three times a day; insulin glargine [Lantus Solostar U-100 Insulin] 100 unit/mL (3 mL) insulin pen 25 unit subcut DAILY Qty: 15 0RF Referrals / Follow Up: Steven Saba MD [Med Staff - Active Staff] - Curtis Hernandez MD [Primary Care Provider] - Disposition Disposition (needs filled in before D/C Order can be placed): Home, Self Care 07/05/24 1154Apricila Cary DO CC: Dr. Des Hamm DO; Dr. Curtis Hernandez MD ~ Signed [facility]05-30-2025 [facility] Medical Records Department [address] [place] [address] Discharge Summary 07/05/24 1152 MR#: [id number] Acct: [id number] Name: MAXWELL SANDHU Rep #: [id number] : 1970 54 From: Lawrence Cary DO PCP: Dr. Curtis Hernandez MD Status:DIS IN Location: [facility] [id number] Providers Date of Admission: 07/02/24 Date of Discharge: 07/05/24 Primary Care Physician: Dr. Curtis Hernandez MD Reason For Visit: CHF EXACERBATION Diagnosis Discharge Diagnosis (1) Acute heart failure with preserved ejection fraction (HFpEF): Status: Acute Code(s): I50.31 - Acute diastolic (congestive) heart failure (2) Hypoxia: Status: Acute Code(s): R09.02 - Hypoxemia Medications at Discharge Home Medications levetiracetam 500 mg tablet 500 mg PO BID keppra 11/01/23 aspirin 81 mg chewable tablet 1 tab PO DAILY heart health 06/03/24 atorvastatin 40 mg tablet 40 mg PO QHS choleterol 06/03/24 diltiazem HCl 120 mg capsule,extended release 24 hr 120 mg PO Q12 120 days #240 caps 06/04/24 insulin glargine 100 unit/mL (3 mL) subcutaneous pen (Lantus Solostar U-100 Insulin) 25 unit (0.25 mL) subcut DAILY diabetes #15 mL 06/04/24 insulin lispro 100 unit/mL subcutaneous pen 10 unit subcut TID diabetes #15 mL 06/04/24 empagliflozin 10 mg tablet (Jardiance) 10 mg PO DAILY 07/02/24 apixaban 5 mg tablet 5 mg PO BID #134 tabs 07/05/24 furosemide 40 mg tablet 40 mg PO DAILY 30 days #30 tabs 07/05/24 Hospital Course Operations None Procedures - (CTA chest) Summary of Care Provided Minutes Spent on Discharge: 35 Hospital Course: Patient is a 54-year-old male who presented to [facility] ED on 07/02/2024 with worsening shortness of breath. Hospital course as noted below. Patient discharged home in stable condition on 07/05. 1. Acute HFpEF exacerbation with hypoxia, improved ??? Recent hospitalization for acute PE as noted below. Echo on 06/04 showed EF 50% with moderate concentric LV hypertrophy and stage I diastolic dysfunction along with mild biatrial dilatation. CTA chest on this admit showed no PE but did show bilateral pleural effusions right greater than left. BNP 2001 (underestimated given his morbid obesity). Treated with IV Lasix drip at 10 mg/h on admit with very good urine output. Transitioned to IV Lasix 40 mg every 8 hours on 07/04. Completed O2 testing on day of discharge and did not require any supplemental oxygen. Will discharge on p.o. Lasix 40 mg daily. Recommend close outpatient follow-up with cardiology. 2. Recent bilateral PE ??? Recently hospitalized here from 06/03-06/04. CTA chest showed findings concerning for areas of pulmonary embolism in the right upper and left lower lobes. Lower extremity duplex ultrasound was negative for DVT. Weaned off supplemental oxygen then on discharge and started on Eliquis. Repeat CTA chest on this admission with no PE noted. Continue home Eliquis. 3. Paroxysmal A-fib/flutter ??? Patient diagnosed with new onset A-fib/flutter during recent hospitalization in May. Was in normal sinus rhythm on admission but did flip into A-fib with heart rate in the 110s for a few hours, held back in normal sinus rhythm. Continue home Eliquis and diltiazem. Chronic medical conditions: ??? Class III obesity: BMI 52 on admit. Complicated hospital course, care and prognosis. Encouraged weight loss. ??? Type 2 diabetes mellitus: A1c 11.1% on admit. Continue home Lantus 25 units daily and Humalog 10 units with meals on discharge. ??? Hyperlipidemia: Continue home statin. ??? Seizure disorder: Continue home Keppra. Total clinical time spent by myself addressing the patient's medical issues, reviewing all the data, and collaborating with patient's care team: 35 minutes. Physical Exam Const alert, oriented x3 and no apparent distress Constitutional Narrative: Pleasant middle-age male, class III obesity, energy improved from admission, sitting back comfortably in bedside chair, conversing normally, in no acute distress. General Appearance: cooperative and comfortable HEENT normocephalic, head/scalp atraumatic, hearing grossly normal bilaterally, nasal mucous membranes and turbinates normal and moist oral mucous membranes Eyes PERRL, EOMs intact bilaterally and conjunctivae normal Neck full ROM Chest inspection of chest normal Resp normal respiratory effort and no use of accessory muscles Resp Narrative: Breathing comfortably on room air at rest. Mildly decreased breath sounds noted at bilateral lung bases but no crackles or wheezing noted. Improved from admission. Cardio regular rate, regular rhythm, no murmurs and peripheral pulses 2+ throughout GI normal to inspection, nondistended, normoactive bowel sounds, soft to palpation, non-tender and non- distended Back/Spine normal ROM Extremity full ROM Extremity Narrati (more content not included)...[facility] 07-04-2024 Progress note Author Lawrence Cary [facility] Note Date/Time July 04, 2024 12:47 pm [facility] Medical Records Department [address] [place] [address] Progress Note - Hospitalist 07/04/24 1038 MR#: [id number] Acct: [id number] Name: MAXWELL SANDHU Rep #:[id number] : 1970 54 From: Lawrence parikh DO PCP: Dr. Curtis Hernandez MD Status:A DM IN Location: [place] [address] Reason for Visit Reason for Visit: Diagnoses Unspecified diastolic (congestive) heart failure (07/02/24) Acute diastolic (congestive) heart failure (07/02/24) Hypoxemia (07/02/24) Subjective Subjective Saw patient at bedside this morning. Patient was sitting up comfortably in bedside chair, conversing normally, in no acute distress. Noted that he had very significant urine output yesterday and began to slow down somewhat overnight. Notes that his lower extremity swelling is much improved for admission. Denies any shortness of breath at rest. No other new concerns this morning. Objective Data Objective Data Vital Signs: Vital Signs Temp Pulse Resp BP Pulse Ox O2 Del Method O2 Flow Rate 97.7 F L 67 16 105/85 H 96 Nasal Cannula 3 07/04/24 08:45 07/04/24 08:45 07/04/24 08:45 07/04/24 08:45 07/04/24 08:45 07/04/24 09:00 07/04/24 09:00 Oxygen Flow Rate (L/min) 3 Oxygen Delivery Method Nasal Cannula Weight: 157.1 kg Body Mass Index (BMI) 51.2 Intake & Output: Intake and Output for Last 24 Hours 07/02/24 07/03/24 07/04/24 23:59 23:59 23:59 Intake Total 200 / 600 1180 / 1580 687.64 / 687.64 Output Total / 1999 2650 / 3750 1999 Balance -250 / -1400 -1470 / -2170 -1312.36 / -1312.36 Lab / Micro Data 07/03/24 05:44 07/04/24 05:55 Labs: Laboratory Results - last 24 hr 07/03/24 11:20: POC Glucose 164 H 07/03/24 17:18: POC Glucose 133 H 07/03/24 23:18: POC Glucose 105 07/04/24 05:55: Sodium 140, Potassium 3.4, Chloride 97 L, Carbon Dioxide 29.9, Anion Gap 12, BUN 18, Creatinine 0.82, Estim Creat Clear Calc 151.32, Est GFR (MDRD) Non-Af 104, BUN/Creatinine Ratio 21.7 H, Glucose 113 H, Calcium 8.9 07/04/24 08:40: POC Glucose 136 H Micro: Microbiology 07/02/24 13:33 Mucosa - Nose SARS-CoV-2, Influenza & RSV (PCR) - Final Physical Exam Const alert, oriented x3 and no apparent distress Constitutional Narrative: Pleasant middle-age male, class III obesity, energy improved from admission, sitting back comfortably in bedside chair, conversing normally, in no acute distress. General Appearance: cooperative and comfortable HEENT normocephalic, head/scalp atraumatic, hearing grossly normal bilaterally, nasal mucous membranes and turbinates normal and moist oral mucous membranes Eyes PERRL, EOMs intact bilaterally and conjunctivae normal Neck full ROM Chest inspection of chest normal Resp normal respiratory effort and no use of accessory muscles Resp Narrative: Breathing comfortably on 3 L nasal cannula at rest. Mildly decreased breath sounds noted at bilateral lung bases with mild crackles in mid lung zones noted. Otherwise good air movement noted in upper to mid lungs with no wheezing noted. Improving. Cardio regular rate, regular rhythm, no murmurs and peripheral pulses 2+ throughout GI normal to inspection, nondistended, normoactive bowel sounds, soft to palpation,non-tender and non-distended Back/Spine normal ROM Extremity full ROM Extremity Narrative: Trace lower extremity edema noted, improved from admission. Skin no rashes or lesions noted Psych mental status grossly normal Assessment & Plan Assessment/Plan (1) Acute heart failure with preserved ejection fraction (HFpEF): (2) Hypoxia: PLAN: Plan Patient is a 54-year-old male who presented to [facility] ED on 07/02/2024 with worsening shortness of breath. 1. Acute HFpEF exacerbation with hypoxia ? Recent hospitalization for acute PE as noted below. Echo on 06/04 showed EF 50% with moderate concentric LV hypertrophy and stage I diastolic dysfunction along with mild biatrial dilatation. CTA chest on this admit showed no PE but did show bilateral pleural effusions right greater than left. BNP 2001 (underestimated given his morbid obesity). Treated with IV Lasix drip at 10 mg/h on admit with very good urine output. Transitioned to IV Lasix 40 mg every8 hours on 07/04. Continue to monitor daily BMP and urine output. Hopeful to transition patient to p.o. Lasix tomorrow. Wean supplemental oxygen as able. Will plan to complete oxygen qualification testing tomorrow morning in preparation for possible discharge home. 2. Recent bilateral PE ? Recently hospitalized here from 06/03-06/04. CTA chest showed findings concerning for areas of pulmonary embolism in the right upper and left lower lobes. Lower extremity duplex ultrasound was negative for DVT. Weaned off supplemental oxygen then on discharge and started on Eliquis. Repeat CTA chest on this admission with no PE noted. Continue home Eliquis. 3. Paroxysmal A-fib/flutter ? Patient diagnosed with new onset A-fib/flutter during recent hospitalization in May. Was in normal sinus rhythm on admission but did flip into A-fib with heart rate in the 110s for a few hours, held back in normal sinus rhythm. Continue home Eliquis and diltiazem. Continue cardiac monitoring. Chronic medical conditions: ? Class III obesity: BMI 52 on admit. Complicates hospital course, care and prognosis. Encouraged weight loss. ? Type 2 diabetes mellitus: A1c 11.1% on admit. Continue home Lantus 25 units daily and Humalog 10 units with meals plus sliding scale, adjust as needed. ? Hyperlipidemia: Continue home statin. ? Seizure disorder: Continue home Keppra. DVT prophylaxis: Not indicated, on Eliquis CODE STATUS: Full code, verified Expected disposition: Home, 1 to 2 days Total clinical time spent by myself addressing the patient's medical issues, reviewing all the data, and collaborating with patient's care team: 35 minutes. Charges/Coding Visit Charges Inpatient E&M: 50360 Subs Hosp L2 07/04/24 8510 <Electronically signed by Lawrence Mosteller DO> Cosigner Signature (if applicable): CC: ~ Signed [facility] Work Phone: [phone] [phone] Progress note [facility] Medical Records Department [address] [place] [address] Progress Note - Hospitalist 07/04/24 1038 MR#: [id number] Acct: [id number] Name: MAXWELL SANDHU Rep #:[id number] : 1970 54 From: Lawrence parikh DO PCP: Dr. Curtis Hernandez MD Status:A DM IN Location: [place] [address] Reason for Visit Reason for Visit: Diagnoses Unspecified diastolic (congestive) heart failure (07/02/24) Acute diastolic (congestive) heart failure (07/02/24) Hypoxemia (07/02/24) Subjective Subjective Saw patient at bedside this morning. Patient was sitting up comfortably in bedside chair, conversing normally, in no acute distress. Noted that he had very significant urine output yesterday and began to slow down somewhat overnight. Notes that his lower extremity swelling is much improved for admission. Denies any shortness of breath at rest. No other new concerns this morning. Objective Data Objective Data Vital Signs: Vital Signs Temp Pulse Resp BP Pulse Ox O2 Del Method O2 Flow Rate 97.7 F L 67 16 105/85 H 96 Nasal Cannula 3 07/04/24 08:45 07/04/24 08:45 07/04/24 08:45 07/04/24 08:45 07/04/24 08:45 07/04/24 09:00 07/04/24 09:00 Oxygen Flow Rate (L/min) 3 Oxygen Delivery Method Nasal Cannula Weight: 157.1 kg Body Mass Index (BMI) 51.2 Intake & Output: Intake and Output for Last 24 Hours 07/02/24 07/03/24 07/04/24 23:59 23:59 23:59 Intake Total 200 / 600 1180 / 1580 687.64 / 687.64 Output Total 450 / 2000 2650 / 3750 1999 Balance -250 / -1400 -1470 / -2170 -1312.36 / -1312.36 Lab / Micro Data 07/03/24 05:44 07/04/24 05:55 Labs: Laboratory Results - last 24 hr 07/03/24 11:20: POC Glucose 164 H 07/03/24 17:18: POC Glucose 133 H 07/03/24 23:18: POC Glucose 105 07/04/24 05:55: Sodium 140, Potassium 3.4, Chloride 97 L, Carbon Dioxide 29.9, Anion Gap 12, BUN 18, Creatinine 0.82, Estim Creat Clear Calc 151.32, Est GFR (MDRD) Non-Af 104, BUN/Creatinine Ratio 21.7 H, Glucose 113 H, Calcium 8.9 07/04/24 08:40: POC Glucose 136 H Micro: Microbiology 07/02/24 13:33 Mucosa - Nose SARS-CoV-2, Influenza & RSV (PCR) - Final Physical Exam Const alert, oriented x3 and no apparent distress Constitutional Narrative: Pleasant middle-age male, class III obesity, energy improved from admission, sitting back comfortably in bedside chair, conversing normally, in no acute distress. General Appearance: cooperative and comfortable HEENT normocephalic, head/scalp atraumatic, hearing grossly normal bilaterally, nasal mucous membranes and turbinates normal and moist oral mucous membranes Eyes PERRL, EOMs intact bilaterally and conjunctivae normal Neck full ROM Chest inspection of chest normal Resp normal respiratory effort and no use of accessory muscles Resp Narrative: Breathing comfortably on 3 L nasal cannula at rest. Mildly decreased breath sounds noted at bilateral lung bases with mild crackles in mid lung zones noted. Otherwise good air movement noted in upperto mid lungs with no wheezing noted. Improving. Cardio regular rate, regular rhythm, no murmurs and peripheral pulses 2+ throughout GI normal to inspection, nondistended, normoactive bowel sounds, soft to palpation,non-tender and non-distended Back/Spine normal ROM Extremity full ROM Extremity Narrative: Trace lower extremity edema noted, improved from admission. Skin no rashes or lesions noted Psych mental status grossly normal Assessment & Plan Assessment/Plan (1) Acute heart failure with preserved ejection fraction (HFpEF): (2) Hypoxia: PLAN: Plan Patient is a 54-year-old male who presented to [facility] ED on 07/02/2024 with worsening shortness of breath. 1. Acute HFpEF exacerbation with hypoxia ? Recent hospitalization for acute PE as noted below. Echo on 06/04 showed EF 50% with moderate concentric LV hypertrophy and stage I diastolic dysfunction along with mild biatrial dilatation. CTA chest on this admit showed no PE but did show bilateral pleural effusions right greater than left. BNP 2001 (underestimated given his morbid obesity). Treated with IV Lasix drip at 10 mg/h on admit with v deepa good urine output. Transitioned to IV Lasix 40 mg every8 hours on 07/04. Continue to monitor daily BMP and urine output. Hopeful to transition patient to p.o. Lasix tomorrow. Wean supplemental oxygen as able. Will plan to complete oxygen qualification testing tomorrow morning in preparation for possible discharge home. 2. Recent bilateral PE ? Recently hospitalized here from 06/03-06/04. CTA chest showed findings concerning for areas of pulmonary embolism in the right upper and left lower lobes. Lower extremity duplex ultrasound was negative for DVT. Weaned off supplemental oxygen then on discharge and started on Eliquis. Repeat CTA chest on this admission with no PE noted. Continue home Eliquis. 3. Paroxysmal A-fib/flutter ? Patient diagnosed with new onset A-fib/flutter during recent hospitalization in May. Was in normal sinus rhythm on admission but did flip into A-fib with heart rate in the 110s for a few hours, held back in normal sinus rhythm. Continue home Eliquis and diltiazem. Continue cardiac monitoring. Chronic medical conditions: ? Class III obesity: BMI 52 on admit. Complicates hospital course, care and prognosis. Encouraged weight loss. ? Type 2 diabetes mellitus: A1c 11.1% on admit. Continue home Lantus 25 units daily and Humalog 10 units with meals plus sliding scale, adjust as needed. ? Hyperlipidemia: Continue home statin. ? Seizure disorder: Continue home Keppra. DVT prophylaxis: Not indicated, on Eliquis CODE STATUS: Full code, verified Expected disposition: Home, 1 to 2 days Total clinical time spent by myself addressing the patient's medical issues, reviewing all the data, and collaborating with patient's care team: 35 minutes. Charges/Coding Visit Charges Inpatient E&M: 75705 Subs Hosp L2 07/04/24 3033 Cosigner Signature (if applicable): CC: ~ Signed [facility]05-28-2025 Progress note Author Lawrence Cary [facility] Note Date/Time July 03, 2024 3:33p m [facility] Medical Records Department [address] [place] [address] Progress Note - Hospitalist 07/03/24 1124 MR#: [id number] Acct: [id number] Name: MAXWELL SANDHU Rep #:[id number] : 1970 54 From: Lawrence parikh DO PCP: Dr. Curtis Hernandez MD Status:A DM IN Location: [place] [address] Reason for Visit Reason for Visit: Diagnoses Unspecified diastolic (congestive) heart failure (07/02/24) Subjective Subjective Saw patient at bedside this morning. Patient was laying back comfortably in bed, conversing normally, in no acute distress. Noted that he has had significant urine output since admission on the Lasix drip. Does continue to report some orthopnea but otherwise denies shortness of breath at rest. Has notbeen out of bed yet since coming up to the floor, unsure if he has dyspnea on exertion. Denies any other pain or discomfort this morning. No other acute concerns today. Objective Data Objective Data Vital Signs: Vital Signs Temp Pulse Resp BP Pulse Ox O2 Del Method O2 Flow Rate 97.6 F L 93 18 136/95 H 94 Nasal Cannula 3 07/03/24 06:00 07/03/24 07:00 07/03/24 06:00 07/03/24 06:00 07/03/24 10:00 07/03/24 10:00 07/03/24 10:00 Oxygen Flow Rate (L/min) 3 Oxygen Delivery Method Nasal Cannula Weight: 161.297 kg Body Mass Index (BMI) 52.7 Intake & Output: Intake and Output for Last 24 Hours 07/01/24 07/02/24 07/03/24 23:59 23:59 23:59 Intake Total 200 / 600 700 / 700 Output Total 450 / 2000 2650 / 2650 Balance -250 / -1400 -1950 / -1950 Lab / Micro Data 07/03/24 05:44 07/03/24 05:44 Labs: Laboratory Results - last 24 hr 07/02/24 13:14: WBC 10.2, RBC 5.53, Hgb 14.7, Hct 45.4, MCV 82.1, MCH 26.6 L, MCHC 32.4, RDW Std Deviation 40.9, RDW Coeff of Masha 14.0, Plt Count 214, MPV 12.0, Immature Gran % (Auto) 0.300, Neut % (Auto) 75.1 H, Lymph % (Auto) 14.5 L,[place] % (Auto) 7.7, Eos % (Auto) 1.4, Baso % (Auto) 1.0, Absolute Neuts (auto) 7.7, Absolute Lymphs (auto) 1.47, Nucleated RBC % 0, PT 16.1 H, INR 1.3, APTT 34.4, Sodium 139, Potassium 4.2, Chloride 103, Carbon Dioxide 25.2, Anion Gap 11, BUN 16, Creatinine 0.66 L, Estim Creat Clear Calc 200.49, Est GFR (MDRD) Non-Af 111, BUN/Creatinine Ratio 23.5 H, Glucose 182 H, Calcium 9.2, Troponin T High Sens 54 H*, NT pro BNP II 2002 H 07/02/24 16:04: Troponin T Hi Sens 2 Hr 56 H* 07/02/24 23:00: POC Glucose 174 H 07/03/24 05:44: WBC 10.1, RBC 5.52, Hgb 14.5, Hct 45.2, MCV 81.9, MCH 26.3 L, MCHC 32.1, RDW Std Deviation 40.5, RDW Coeff of Masha 13.9, Plt Count 206, MPV 11.4, Immature Gran % (Auto) 0.400, Neut % (Auto) 71.6 H, Lymph % (Auto) 17.0 L,[place] % (Auto) 8.4, Eos % (Auto) 2.0, Baso % (Auto) 0.6, Absolute Neuts (auto) 7.2, Absolute Lymphs (auto) 1.72, Nucleated RBC % 0, Sodium 138, Potassium 3.7, Chloride 100, Carbon Dioxide 25.5, Anion Gap 13, BUN 15, Creatinine 0.75, Estim Creat Clear Calc 171.49, Est GFR (MDRD) Non-Af 107, BUN/Creatinine Ratio 20.2 H,Glucose 140 H, Hemoglobin A1c 11.1 H, Calcium 9.0 07/03/24 08:00: POC Glucose 148 H Micro: Microbiology 07/02/24 13:33 Mucosa - Nose SARS-CoV-2, Influenza & RSV (PCR) - Final Radiography Diagnostic Testing: Radiology Impression Chest CTA 07/02/24 13:28 IMPRESSION: Bilateral pleural effusions right greater than left with bibasilar infiltration and/or atelectasis. No evidence of pulmonary embolism. Reading Location: [place] [address] Physical Exam Const alert, oriented x3 and no apparent distress Constitutional Narrative: Pleasant middle-age male, class III obesity, mildly fatigued appearing but otherwise laying back comfortably in bed, conversing normally, in no acute distress. General Appearance: cooperative and comfortable HEENT normocephalic, head/scalp atraumatic, hearing grossly normal bilaterally, nasal mucous membranes and turbinates normal and moist oral mucous membranes Eyes PERRL, EOMs intact bilaterally and conjunctivae normal Neck full ROM Chest inspection of chest normal Resp normal respiratory effort and no use of accessory muscles Resp Narrative: Breathing comfortably on 4 L nasal cannula at rest. Decreased breath sounds noted at bilateral lung bases with mild crackles in mid lung zones noted. Otherwise good air movement noted in upper to mid lungs with no wheezing noted. Cardio regular rate, regular rhythm, no murmurs and peripheral pulses 2+ throughout GI normal to inspection, nondistended, normoactive bowel sounds, soft to palpation,non-tender and non-distended Back/Spine normal ROM Extremity full ROM Extremity Narrative: +2-3 lower extremity pitting edema noted. Skin no rashes or lesions noted Psych mental status grossly normal Assessment & Plan Assessment/Plan (1) Acute heart failure with preserved ejection fraction (HFpEF): (2) Hypoxia: PLAN: Plan Patient is a 54-year-old male who presented to [facility] ED on 07/02/2024 with worsening shortness of breath. 1. Acute HFpEF exacerbation with hypoxia ? Recent hospitalization for acute PE as noted below. Echo on 06/04 showed EF 50% with moderate concentric LV hypertrophy and stage I diastolic dysfunction along with mild biatrial dilatation. CTA chest on this admit showed no PE but did show bilateral pleural effusions right greater than left. BNP 2001 (underestimated given his morbid obesity). Treated with IV Lasix drip at 10 mg/h with very good urine output to this point. Wean supplemental oxygen as able. Follow-up a.m. BMP and continue to monitor urine output. 2. Recent bilateral PE ? Recently hospitalized here from 06/03-06/04. CTA chest showed findings concerning for areas of pulmonary embolism in the right upper and left lower lobes. Lower extremity duplex ultrasound was negative for DVT. Weaned off supplemental oxygen then on discharge and started on Eliquis. Repeat CTA chest on this admission with no PE noted. Continue home Eliquis. 3. Paroxysmal A-fib/flutter ? Patient diagnosed with new onset A-fib/flutter during recent hospitalization in May. Was in normal sinus rhythm on admission but did flip into A-fib with heart rate in the 110s for a few hours, held back in normal sinus rhythm. Continue home Eliquis and diltiazem. Continue cardiac monitoring. Chronic medical conditions: ? Class III obesity: BMI 52 on admit. Complicates hospital course, care and prognosis. Encouraged weight loss. ? Type 2 diabetes mellitus: A1c 11.1% on admit. Continue home Lantus 25 units daily and Humalog 10 units with meals plus sliding scale, adjust as needed. ? Hyperlipidemia: Continue home statin. ? Seizure disorder: Continue home Keppra. DVT prophylaxis: Not indicated, on Eliquis CODE STATUS: Full code, verified Expected disposition: Home, 2 to 3 days Total clinical time spent by myself addressing the patient's medical issues, reviewing all the data, and collaborating with patient's care team: 35 minutes. Charges/Coding Visit Charges Inpatient E&M: 72310 Subs Hosp L2 07/03/24 1539 <Electronically signed by Lawrence Cary DO> Cosigner Signature (if applicable): CC: ~ Signed [facility] Work Phone: [phone] 428-362905-28-2025 Progress note [facility] Medical Records Department [address] [place] [address] Progress Note - Hospitalist 07/03/24 1124 MR#: [id number] Acct: [id number] Name: MAXWELL SANDHU Rep #:[id number] : 1970 54 From: Lawrence parikh DO PCP: Dr. Curtis Hernandez MD Status:A DM IN Location: [place] [address] Reason for Visit Reason for Visit: Diagnoses Unspecified diastolic (congestive) heart failure (07/02/24) Subjective Subjective Saw patient at bedside this morning. Patient was laying back comfortably in bed, conversing normally, in no acute distress. Noted that he has had significant urine output since admission on the Lasixdrip. Does continue to report some orthopnea but otherwise denies shortness of breath at rest. Has notbeen out of bed yet since coming up to the floor, unsure if he has dyspnea on exertion. Denies any other pain or discomfort this morning. No other acute concerns today. Objective Data Objective Data Vital Signs: Vital Signs Temp Pulse Resp BP Pulse Ox O2 Del Method O2 Flow Rate 97.6 F L 93 18 136/95 H 94 Nasal Cannula 3 07/03/24 06:00 07/03/24 07:00 07/03/24 06:00 07/03/24 06:00 07/03/24 10:00 07/03/24 10:00 07/03/24 10:00 Oxygen Flow Rate (L/min) 3 Oxygen Delivery Method Nasal Cannula Weight: 161.297 kg Body Mass Index (BMI) 52.7 Intake & Output: Intake and Output for Last 24 Hours 07/01/24 07/02/24 07/03/24 23:59 23:59 23:59 Intake Total 200 / 600 700 / 700 Output Total 450 / 2000 2650 / 2650 Balance -250 / -1400 -1950 / -1950 Lab / Micro Data 07/03/24 05:44 07/03/24 05:44 Labs: Laboratory Results - last 24 hr 07/02/24 13:14: WBC 10.2, RBC 5.53, Hgb 14.7, Hct 45.4, MCV 82.1, MCH 26.6 L, MCHC 32.4, RDW Std Deviation 40.9, RDW Coeff of Masha 14.0, Plt Count 214, MPV 12.0, Immature Gran % (Auto) 0.300, Neut % (Auto) 75.1 H, Lymph % (Auto) 14.5 L,Mohave % (Auto) 7.7, Eos % (Auto) 1.4, Baso % (Auto) 1.0, AbsoluteNeuts (auto) 7.7, Absolute Lymphs (auto) 1.47, Nucleated RBC % 0, PT 16.1 H, INR 1.3, APTT 34.4, Sodium 139, Potassium 4.2, Chloride 103, Carbon Dioxide 25.2, Anion Gap 11, BUN 16, Creatinine 0.66 L,Estim Creat Clear Calc 200.49, Est GFR (MDRD) Non- Af 111, BUN/Creatinine Ratio 23.5 H, Glucose 182 H, Calcium 9.2, Troponin T High Sens 54 H*, NT pro BNP II 2002 H 07/02/24 16:04: Troponin T Hi Sens 2 Hr 56 H* 07/02/24 23:00: POC Glucose 174 H 07/03/24 05:44: WBC 10.1, RBC 5.52, Hgb 14.5, Hct 45.2, MCV 81.9, MCH 26.3 L, MCHC 32.1, RDW Std Deviation 40.5, RDW Coeff of Masha 13.9, Plt Count 206, MPV 11.4, Immature Gran % (Auto) 0.400, Neut % (Auto) 71.6 H, Lymph % (Auto) 17.0 L,Mohave % (Auto) 8.4, Eos % (Auto) 2.0, Baso % (Auto) 0.6, AbsoluteNeuts (auto) 7.2, Absolute Lymphs (auto) 1.72, Nucleated RBC % 0, Sodium 138, Potassium 3.7, Chloride 100, Carbon Dioxide 25.5, Anion Gap 13, BUN 15, Creatinine 0.75, Estim Creat Clear Calc 171.49, Est GFR (MDRD) Non-Af 107, BUN/Creatinine Ratio 20.2 H,Glucose 140 H, Hemoglobin A1c 11.1 H, Calcium 9.0 07/03/24 08:00: POC Glucose 148 H Micro: Microbiology 07/02/24 13:33 Mucosa - Nose SARS-CoV-2, Influenza & RSV (PCR) - Final Radiography Diagnostic Testing: Radiology Impression Chest CTA 07/02/24 13:28 IMPRESSION: Bilateral pleural effusions right greater than left with bibasilar infiltration and/or atelectasis. No evidence of pulmonary embolism. [facility] Exam Const alert, oriented x3 and no apparent distress Constitutional Narrative: Pleasant middle-age male, class III obesity, mildly fatigued appearing but otherwise laying back comfortably in bed, conversing normally, in no acute distress. General Appearance: cooperative and comfortable HEENT normocephalic, head/scalp atraumatic, hearing grossly normal bilaterally, nasal mucous membranes and turbinates normal and moist oral mucous membranes Eyes PERRL, EOMs intact bilaterally and conjunctivae normal Neck full ROM Chest inspection of chest normal Resp normal respiratory effort and no use of accessory muscles Resp Narrative: Breathing comfortably on 4 L nasal cannula at rest. Decreased breath sounds noted at bilateral lungbases with mild crackles in mid lung zones noted. Otherwise good air movement noted in upper to midlungs with no wheezing noted. Cardio regular rate, regular rhythm, no murmurs and peripheral pulses 2+ throughout GI normal to inspection, nondistended, normoactive bowel sounds, soft to palpation,non-tender and non-distended Back/Spine normal ROM Extremity full ROM Extremity Narrative: +2-3 lower extremity pitting edema noted. Skin no rashes or lesions noted Psych mental status grossly normal Assessment & Plan Assessment/Plan (1) Acute heart failure with preserved ejection fraction (HFpEF): (2) Hypoxia: PLAN: Plan Patient is a 54-year-old male who presented to [facility] ED on 07/02/2024 with worsening shortness of breath. 1. Acute HFpEF exacerbation with hypoxia ? Recent hospitalization for acute PE as noted below. Echo on 06/04 showed EF 50% with moderate concentric LV hypertrophy and stage I diastolic dysfunction along with mild biatrial dilatation. CTA chest on this admit showed no PE but did show bilateral pleural effusions right greater than left. BNP 2001 (underestimated given his morbid obesity). Treated with IV Lasix drip at 10 mg/h with very good urine output to this point. Wean supplemental oxygen as able. Follow-up a.m. BMP and continue to monitor urine output. 2. Recent bilateral PE ? Recently hospitalized here from 06/03-06/04. CTA chest showed findings concerning for areas of pulmonary embolism in the right upper and left lower lobes. Lower extremity duplex ultrasound was negative for DVT. Weaned off supplemental oxygen then on discharge and started on Eliquis. Repeat CTA chest on this admission with no PE noted. Continue home Eliquis. 3. Paroxysmal A-fib/flutter ? Patient diagnosed with new onset A-fib/flutter during recent hospitalization in May. Was in normal sinus rhythm on admission but did flip into A-fib with heart rate in the 110s for a few hours, held back in normal sinus rhythm. Continue home Eliquis and diltiazem. Continue cardiac monitoring. Chronic medical conditions: ? Class III obesity: BMI 52 on admit. Complicates hospital course, care and prognosis. Encouraged weight loss. ? Type 2 diabetes mellitus: A1c 11.1% on admit. Continue home Lantus 25 units daily and Humalog 10 units with meals plus sliding scale, adjust as needed. ? Hyperlipidemia: Continue home statin. ? Seizure disorder: Continue home Keppra. DVT prophylaxis: Not indicated, on Eliquis CODE STATUS: Full code, verified Expected disposition: Home, 2 to 3 days Total clinical time spent by myself addressing the patient's medical issues, reviewing all the data, and collaborating with patient's care team: 35 minutes. Charges/Coding Visit Charges Inpatient E&M: 31234 Subs Hosp L2 07/03/24 1533 Cosigner Signature (if applicable): CC: ~ Signed [facility]05-27-2025 History and physical note Author Des Hamm [facility] Note Date/Time July 02, 2024 4:16p m [facility] Medical Records Department [address] [place] [address] H&P Exam - Hospitalist 07/02/24 1609 MR#: [id number] Acct: [id number] Name: MAXWELL SANDHU Rep #:[id number] : 1970 54 From: Des Hamm DO PCP: Dr. Curtis Hernandez MD Status:R ER Location: ED HPI - General General Date of Service: 07/02/24 Chief Complaint: Shortness of breath HPI Narrative MAXWELL SANDHU, is a 54 M who presents with shortness of breath over the past 2 days. Has not slept and is unable to lay flat because he gets more short of breath laying flat. Presented to the emergency room where he underwent a CTA ofthe chest that showed increased bilateral pleural effusions. And on his intake weight appears that he is put on roughly 10 kg since his discharge on June 04. Patient received one-time dose of 40 mg IV furosemide. [facility] Medical History Sleep apnea Seizures Stroke/cerebrovascular accident Hypertension High cholesterol Diabetes Home Medications ?Medication ?Instructions ?Recorded ?Last Taken ?Type levetiracetam 500 mg tablet 500 mg PO BID keppra 10/3107/02/24 History aspirin 81 mg chewable tablet 1 tab PO DAILY heart hea lth 06/03/24 07/02/24 History atorvastatin 40 mg tablet 40 mg PO QHS choleterol 05/0807/02/24 History apixaban 5 mg tablet 5 mg PO BID #134 tabs 07/02/24 Rx diltiazem HCl 120 mg 120 mg PO Q12 120 days #240 caps 06/04/24 07/02/24 Rx capsule,extended release 24 hr insulin glargine 100 unit/mL (3 25 unit (0.25 mL) subc ut DAILY 06/04/24 07/02/24 Rx mL) subcutaneous pen (Lantus diabetes #15 mL Solostar U-100 Insulin) insulin lispro 100 unit/mL 10 unit subcut TID diabetes #15 mL 06/04/24 07/02/24 Rx subcutaneous pen empagliflozin 10 mg tablet 10 mg PO DAILY 07/02/24 Unk nown History (Jardiance) Allergy/AdvReac Type Severity Reaction Status Date / Time No Known Allergies Allergy Verified 07/02/24 12:49 Family History (Updated 07/02/24 @ 16:[address] Des Hamm DO) Other Heart disease Surgical History Hx of neck surgery Social History household members: spouse and family housing: house Smoking Status: Never smoker ROS ROS Narrative No fever or chills. No chest pain. No abdominal pain. All review of systems were negative except as mentioned above in the history of present illness and the other review of systems. Vital Signs Vital Signs Vital Signs: 07/02/24 12:44 07/02/24 12:57 07/02/24 12:57 Temperature 36.6 C 37.0 C Temperature Source Oral Oral Pulse Rate 117 H 74 Respiratory Rate 20 H 19 H Respiratory Effort Normal Non-Labored Respiratory Depth Normal Respiratory Pattern Normal Blood Pressure 131/68 H 130/79 H Blood Pressure Mean 89 96 Pulse Ox 88 90 Oxygen Delivery Method Room Air Nasal Cannula Room Air Oxygen Flow Rate (L/min) 2 07/02/24 13:15 07/02/24 13:16 07/02/24 13:37 Temperature Temperature Source Pulse Rate Respiratory Rate Respiratory Effort Respiratory Depth Respiratory Pattern Blood Pressure Blood Pressure Mean Pulse Ox 88 90 90 Oxygen Delivery Method Nasal Cannula Nasal Cannula Nasal Cannula Oxygen Flow Rate (L/min) 2 3 3 07/02/24 13:49 07/02/24 14:00 07/02/24 15:00 Temperature 37.0 C 36.8 C 37.0 C Temperature Source Oral Oral Oral Pulse Rate 59 L 59 L 74 Respiratory Rate 28 H 20 H 18 Respiratory Effort Respiratory Depth Respiratory Pattern Blood Pressure 130/78 H 143/85 H 107/77 Blood Pressure Mean 95 104 87 Pulse Ox 90 90 90 Oxygen Delivery Method Nasal Cannula Nasal Cannula Nasal Cannula Oxygen Flow Rate (L/min) 3 3 3 07/02/24 16:02 Temperature 37.0 C Temperature Source Pulse Rate 74 Respiratory Rate 18 Respiratory Effort Respiratory Depth Respiratory Pattern Blood Pressure 107/77 Blood Pressure Mean 87 Pulse Ox 90 Oxygen Delivery Method Oxygen Flow Rate (L/min) Weight Weight: 170.9 kg Body Mass Index (BMI) 55.6 Physical Exam Narrative POCUS: Limited POCUS exam was for heart failure. Using curvilinear probe (as nocardiac probe was available on the ED ultrasound) IVC was dilated and noncompressible with inspiration. Subxiphoid view of the heart. Show that was grossly normal. - Physical Exam General: Alert, Oriented x3, Cooperative HEENT: Atraumatic, PERRLA, EOMI, Normocephalic Oral: Moist Mucosa, No Gingival or Mucosal Lesions/ Ulcerations Neck: Supple, No JVD, Negative Carotid Bruits Lungs: Bibasilar crackles, Normal air movement Cardiovascular: Regular rate, Normal S1, Normal S2, No murmurs Abdomen: Bowel Sounds Present, Soft, Non Tender, Non-Distended, No Hepato-splenomegaly Extremities: No clubbing, No cyanosis, bilateral lower extremity edema. Skin: No rashes, No breakdown Musculoskeletal: No Tenderness to Palpation of Joints or Extremities Neurological: Moves all extremity spontaneously. Psych/Mental Status: Normal Affect, Appropriate Results Lab / Micro Data Attestation: I reviewed the patient's lab results. 07/02/24 13:14 07/02/24 13:14 Labs: Laboratory Results - last 24 hr 07/02/24 13:14: WBC 10.2, RBC 5.53, Hgb 14.7, Hct 45.4, MCV 82.1, MCH 26.6 L, MCHC 32.4, RDW Std Deviation 40.9, RDW Coeff of Masha 14.0, Plt Count 214, MPV 12.0, Immature Gran % (Auto) 0.300, Neut % (Auto) 75.1 H, Lymph % (Auto) 14.5 L,Mohave % (Auto) 7.7, Eos % (Auto) 1.4, Baso % (Auto) 1.0, Absolute Neuts (auto) 7.7, Absolute Lymphs (auto) 1.47, Nucleated RBC % 0, PT 16.1 H, INR 1.3, APTT 34.4, Sodium 139, Potassium 4.2, Chloride 103, Carbon Dioxide 25.2, Anion Gap 11, BUN 16, Creatinine 0.66 L, Estim Creat Clear Calc 200.49, Est GFR (MDRD) Non-Af 111, BUN/Creatinine Ratio 23.5 H, Glucose 182 H, Calcium 9.2, Troponin T High Sens 54 H*, NT pro BNP II 2002 H Micro: Microbiology 07/02/24 13:33 Mucosa - Nose SARS-CoV-2, Influenza & RSV (PCR) - Final EKG Initial EKG: Attestation: I personally reviewed and interpreted this EKG as follows: Prior EKG tracings: available for review EKG Rhythm Intrepretation: Atrial Flutter Imaging Radiology Impression Chest CTA 07/02/24 13:28 IMPRESSION: Bilateral pleural effusions right greater than left with bibasilar infiltration and/or atelectasis. No evidence of pulmonary embolism. Reading Location: [facility] Assessment & Plan Assessment/Plan (1) (HFpEF) heart failure with preserved ejection fraction: PLAN: Acute Patient has increased pleural effusions on his CT as compared to imaging from 06/03. Additionally his weight is gone up roughly 10 kg since his discharge on 04 June. Patient received 40 mg of IV furosemide in the ED. With his marked edema and the fact that he has worsened, put on a furosemide drip. Daily weights. I impressed on upon the patient that he needs to get a scale at home keep a record of his weights and would need to manage his weights until he gets down to his dry weight. In that way he can tell also if he started to put on weight he may not have any noticeable changes nor symptoms but that couldcertainly reflect that he may be having worsening heart failure if he is able tomonitor his weight. Will also have nutrition reinforced dietary restrictions regards to fluid restriction as well as sodium restriction. PLAN: Plan Chronic conditions * Atrial flutter: Anticoagulant with apixaban. Continue with diltiazem. * Diabetes mellitus type 2: Insulin-dependent. Continue with his glargine and prandial insulin. Add sliding scale insulin. Continue with empagliflozin. Check an A1c. * Seizure disorder: Continue levetiracetam. * Hyperlipidemia: Continue with atorvastatin. VTE prophylaxis: Not indicated as patient is already anticoagulated. Charges/Coding Visit Charges Inpatient E&M: 12132 Init Hosp L3 07/02/24 1616 <Electronically signed by Des Hamm DO> Cosigner Signature (if applicable): CC: Dr. Des Hamm DO; Dr. Curtis Hernandez MD~ Signed [facility] Work Phone: [phone]) 965-815305-27-2025 Discharge summary Author Derek Gray [facility] Note Date/Time July 02, 2024 3:43p m [facility] Medical Records Department [address] [place] [address] Emergency Department Summary 07/02/24 MR#: [id number] Acct: [id number] Name: MAXWELL SANDHU Rep #:[id number] : 1970 54 From: Derek galaviz DO PCP: Dr. Curtis Hernandez MD Status:R EG ER Location: ED HPI History of Present Illness Chief Complaint: Shortness of Breath Narrative Narrative: Chief complaint and HPI: Shortness of breath. History taken by patient as well as medical record. 54-year-old gentleman with history of DM2, HTN, recent diagnosis of atrial fibrillation and PE on Eliquis presents for evaluation of shortness of breath. Onset of shortness of breath approximately 2 days ago. Shortness of breath is worse when lying flat and with ambulation. Patient states he has had some nasal congestion but otherwise denies fever, chills, cough, chest pain. States he has not missed any of his Eliquis doses. Has beentaking his medication. On chart review from discharge from 06/04 patient was admitted to our hospital due to new onset a flutter/A-fib and bilateral PE. He had bilateral venous duplex that was negative for DVT. He had an echocardiogram that showed moderateconcentric left ventricular hypertrophy with an EF of 50% and stage I diastolic dysfunction. He was placed on Eliquis and diltiazem. Review of systems: See HPI Medications: As listed on the chart Allergies: As listed on the chart PFSH: Per chart Vital signs: As listed on the chart. Reviewed. Physical exam: Gen: A&O x3, NAD Head: Normocephalic, atraumatic Eyes: No sclera icterus, conjunctiva clear ENT: Moist mucous membranes, + nasal congestion Neck: Trachea midline, No JVD CV: RRR, no murmurs, no peripheral edema Resp: Lungs CTA BL, no w/r/c, on 2 L nasal cannula GI: Abd soft, non-distended, non-tender, no r/r/g Musc: Full ROM, no deformity Skin: Warm, dry Neuro: Alert, oriented, grossly intact, sensation intact Psych: Cooperative, appropriate mood and affect [facility] Medical History Sleep apnea Seizures Stroke/cerebrovascular accident Hypertension High cholesterol Diabetes Home Medications ?Medication ?Instructions ?Recorded ?Last Taken ?Type levetiracetam 500 mg tablet 500 mg PO BID keppra 10/3105/27/24 History aspirin 81 mg chewable tablet 1 tab PO DAILY heart hea lth 06/03/24 Unknown History atorvastatin 40 mg tablet 40 mg PO QHS choleterol 05/0805/27/24 History apixaban 5 mg tablet 5 mg PO BID #134 tabs Unknown Rx diltiazem HCl 120 mg 120 mg PO Q12 120 days #240 caps 06/04/24 Unknown Rx capsule,extended release 24 hr insulin glargine 100 unit/mL (3 25 unit (0.25 mL) subc ut DAILY 06/04/24 05/20/24 Rx mL) subcutaneous pen (Lantus diabetes #15 mL Solostar U-100 Insulin) insulin lispro 100 unit/mL 10 unit subcut TID diabetes #15 mL 06/04/24 05/20/24 Rx subcutaneous pen empagliflozin 10 mg tablet 10 mg PO DAILY 07/02/24 Unk nown History (Jardiance) Allergy/AdvReac Type Severity Reaction Status Date / Time No Known Allergies Allergy Verified 07/02/24 12:49 Surgical History Hx of neck surgery Social History household members: spouse and family housing: house Smoking Status: Never smoker EXAM Physical Exam Const Vital Signs: 07/02/24 12:44 07/02/24 12:57 07/02/24 12:57 Temperature 97.9 F 98.6 F Temperature Source Oral Oral Pulse Rate 117 H 74 Respiratory Rate 20 H 19 H Respiratory Effort Normal Non-Labored Respiratory Depth Normal Respiratory Pattern Normal Blood Pressure 131/68 H 130/79 H Blood Pressure Mean 89 96 Pulse Ox 88 90 Oxygen Delivery Method Room Air Nasal Cannula Room Air Oxygen Flow Rate (L/min) 2 07/02/24 13:15 07/02/24 13:16 07/02/24 13:37 Temperature Temperature Source Pulse Rate Respiratory Rate Respiratory Effort Respiratory Depth Respiratory Pattern Blood Pressure Blood Pressure Mean Pulse Ox 88 90 90 Oxygen Delivery Method Nasal Cannula Nasal Cannula Nasal Cannula Oxygen Flow Rate (L/min) 2 3 3 07/02/24 13:49 07/02/24 14:00 Temperature 98.6 F 98.3 F Temperature Source Oral Oral Pulse Rate 59 L 59 L Respiratory Rate 28 H 20 H Respiratory Effort Respiratory Depth Respiratory Pattern Blood Pressure 130/78 H 143/85 H Blood Pressure Mean 95 104 Pulse Ox 90 90 Oxygen Delivery Method Nasal Cannula Nasal Cannula Oxygen Flow Rate (L/min) 3 3 MDM MDM MDM Narrative Medical decision making narrative: 54-year-old gentleman with history of DM2, HTN, recent diagnosis of atrial fibrillation and PE on Eliquis presents for evaluation of shortness of breath. Onset of shortness of breath 2 days ago. Worse with lying flat and ambulation. Recently diagnosed with a flutter/fib and bilateral PE on Eliquis. Has not missed a dose of his Eliquis. Recent echocardiogram in May showed an EF of 50%. On presentation, patient mildly hypertensive, tachycardic, hypoxic on room air. Placed on nasal cannula 3 L with saturations at 90%. Differential diagnosis includes but is not limited to worsening PE, CHF, arrhythmia, anemia, electrolyte abnormality, viral illness, pneumonia. Cardiac/respiratory workup ordered including CT of the chest. EKG reviewed see below. CBC without leukocytosis or anemia. Platelets unremarkable. INR normal. BMP without significant electrolyte abnormality or SARABJIT. Troponin 54. Patient not having any chest pain and although it is elevated it is downtrending from May at 56. Will still obtain delta. BNP elevated at 2001. Patient did just have an echocardiogram on 06/03 that showed preserved EF of 50%. Stage I diastolic dysfunction with moderate concentric left ventricular hypertrophy. CTA chest negative for PE however he does have bilateral pleural effusions right greater than left with bibasilar infiltrate or atelectasis. Given patient is not endorsing any cough, fever, chills I have low suspicion for infiltrate. He alsodoes not have any leukocytosis therefore suspect it is atelectasis. Patient's shortness of breath as well as acute hypoxia is likely secondary to his pleural effusions and elevated BNP. IV Lasix ordered. On reevaluation, patient is still requiring 3 L nasal cannula with saturations of 90%. We did try to titrate this down and patient remained at 88% and patient had to be titrated back up. Patient states he is usually not hypoxic with normal oxygen saturationson room air. On chart review, in May patient remained in the high 90s on roomair with his oxygen saturations. Given patient is requiring oxygen, he will warrant admission. Patient discussed with Dr. Hamm accepted admission. Patient was updated of all the results and the plan. He confirmed understanding. EKG: Interpreted by me/EM physician: EKG shows atrial flutter. No ST elevation. Heart rate 59. Impression: 1. Acute hypoxia requiring nasal cannula 2. CHF exacerbation 3. Pleural effusions 4. History of atrial flutter/fibrillation with previous PE on Eliquis Lab Data Labs: Laboratory Results - last 24 hr 07/02/24 13:14 WBC 10.2 RBC 5.53 Hgb 14.7 Hct 45.4 MCV 82.1 MCH 26.6 L MCHC 32.4 RDW Std Deviation 40.9 RDW Coeff of Masha 14.0 Plt Count 214 MPV 12.0 Immature Gran % (Auto) 0.300 Neut % (Auto) 75.1 H Lymph % (Auto) 14.5 L [place] % (Auto) 7.7 Eos % (Auto) 1.4 Baso % (Auto) 1.0 Absolute Neuts (auto) 7.7 Absolute Lymphs (auto) 1.47 Nucleated RBC % 0 PT 16.1 H INR 1.3 APTT 34.4 Sodium 139 Potassium 4.2 Chloride 103 Carbon Dioxide 25.2 Anion Gap 11 BUN 16 Creatinine 0.66 L Estim Creat Clear Calc 200.49 Est GFR (MDRD) Non-Af 111 BUN/Creatinine Ratio 23.5 H Glucose 182 H Calcium 9.2 Troponin T High Sens 54 H* NT pro BNP II 2002 H Radiography Diagnostic Testing: Clinical Impression(s) from Imaging Studies Chest CTA 07/02/24 13:28 IMPRESSION: Bilateral pleural effusions right greater than left with bibasilar infiltration and/or atelectasis. No evidence of pulmonary embolism. Reading Location: [place] [address] Discharge Plan Triage Chief Complaint: Shortness of Breath ED Provider: Derek Gray Dx/Rx/DC Orders Prescriptions: No Action levetiracetam 500 mg tablet 500 mg PO BID Jardiance 10 mg tablet 10 mg PO DAILY aspirin 81 mg tablet,chewable 1 tab PO DAILY atorvastatin 40 mg tablet 40 mg PO QHS diltiazem HCl 120 mg Capsule,Extended Release 24hr 120 mg PO Q12 120 Days Qty: 240 0RF apixaban 5 mg tablet 5 mg PO BID Qty: 134 0RF Rx Instructions: 10 mg twice daily for 7 days and subsequently 5 mg twice daily insulin lispro 100 unit/mL insulin pen 10 unit subcut TID Qty: 15 0RF Protocol: 6. Sliding Scale Insulin Custom Condition: mg/dl range Dose/Route: Number of Units Protocol Text: Custom Sliding Scale Rx Instructions: patient on sliding scale with meals subcutaneously three times a day; insulin glargine [Lantus Solostar U-100 Insulin] 100 unit/mL (3 mL) insulin pen 25 unit subcut DAILY Qty: 15 0RF Primary Care Provider: Curtis Hernandez Referrals: Curtis Hernandez MD [Primary Care Provider] - Print Language: Guyanese What to do if you have Problems For any increased pain, shortness of breath, bleeding, nausea or vomiting, chestpain, or any unexpected problems, contact your Primary Care Provider. Call [facility] ([phone]) or report to the closest Emergency Room. Call 911 if necessary. 07/02/24 1543 <Electronically signed by Derek Gray DO> Cosigner Signature (if applicable): CC: Dr. Curtis Hernandez MD ~ Signed [facility] Work Phone: [phone] History and physical note [facility] Medical Records Department [address] [place] [address] H&P Exam - Hospitalist 07/02/24 1609 MR#: [id number] Acct: [id number] Name: MAXWELL SANDHU Rep #:[id number] : 1970 54 From: Des Hamm DO PCP: Dr. Curtis Hernandez MD Status:R EG ER Location: ED HPI - General General Date of Service: 07/02/24 Chief Complaint: Shortness of breath HPI Narrative MAXWELL SANDHU, is a 54 M who presents with shortness of breath over the past 2 days. Has not slept and is unable to lay flat because he gets more short of breath laying flat. Presented to the emergency room where he underwent a CTA ofthe chest that showed increased bilateral pleural effusions. And on his intake weight appears that he is put on roughly 10 kg since his discharge on June 04. Patient received one-time dose of 40 mg IV furosemide. [facility] Medical History Sleep apnea Seizures Stroke/cerebrovascular accident Hypertension High cholesterol Diabetes Home Medications ?Medication ?Instructions ?Recorded ?Last Taken ?Type levetiracetam 500 mg tablet 500 mg PO BID keppra 10/3107/02/24 History aspirin 81 mg chewable tablet 1 tab PO DAILY heart hea lth 06/03/24 07/02/24 History atorvastatin 40 mg tablet 40 mg PO QHS choleterol 05/0807/02/24 History apixaban 5 mg tablet 5 mg PO BID #134 tabs 07/02/24 Rx diltiazem HCl 120 mg 120 mg PO Q12 120 days #240 caps 06/04/24 07/02/24 Rx capsule,extended release 24 hr insulin glargine 100 unit/mL (3 25 unit (0.25 mL) subc ut DAILY 06/04/24 07/02/24 Rx mL) subcutaneous pen (Lantus diabetes #15 mL Solostar U-100 Insulin) insulin lispro 100 unit/mL 10 unit subcut TID diabetes #15 mL 06/04/24 07/02/24 Rx subcutaneous pen empagliflozin 10 mg tablet 10 mg PO DAILY 07/02/24 Unk nown History (Jardiance) Allergy/AdvReac Type Severity Reaction Status Date / Time No Known Allergies Allergy Verified 07/02/24 12:49 Family History (Updated 07/02/24 @ 16:[address] Des Hamm DO) Other Heart disease Surgical History Hx of neck surgery Social History household members: spouse and family housing: house Smoking Status: Never smoker ROS ROS Narrative No fever or chills. No chest pain. No abdominal pain. All review of systems were negative except asmentioned above in the history of present illness and the other review of systems. Vital Signs Vital Signs Vital Signs: 07/02/24 12:44 07/02/24 12:57 07/02/24 12:57 Temperature 36.6 C 37.0 C Temperature Source Oral Oral Pulse Rate 117 H 74 Respiratory Rate 20 H 19 H Respiratory Effort Normal Non-Labored Respiratory Depth Normal Respiratory Pattern Normal Blood Pressure 131/68 H 130/79 H Blood Pressure Mean 89 96 Pulse Ox 88 90 Oxygen Delivery Method Room Air Nasal Cannula Room Air Oxygen Flow Rate (L/min) 2 07/02/24 13:15 07/02/24 13:16 07/02/24 13:37 Temperature Temperature Source Pulse Rate Respiratory Rate Respiratory Effort Respiratory Depth Respiratory Pattern Blood Pressure Blood Pressure Mean Pulse Ox 88 90 90 Oxygen Delivery Method Nasal Cannula Nasal Cannula Nasal Cannula Oxygen Flow Rate (L/min) 2 3 3 07/02/24 13:49 07/02/24 14:00 07/02/24 15:00 Temperature 37.0 C 36.8 C 37.0 C Temperature Source Oral Oral Oral Pulse Rate 59 L 59 L 74 Respiratory Rate 28 H 20 H 18 Respiratory Effort Respiratory Depth Respiratory Pattern Blood Pressure 130/78 H 143/85 H 107/77 Blood Pressure Mean 95 104 87 Pulse Ox 90 90 90 Oxygen Delivery Method Nasal Cannula Nasal Cannula Nasal Cannula Oxygen Flow Rate (L/min) 3 3 3 07/02/24 16:02 Temperature 37.0 C Temperature Source Pulse Rate 74 Respiratory Rate 18 Respiratory Effort Respiratory Depth Respiratory Pattern Blood Pressure 107/77 Blood Pressure Mean 87 Pulse Ox 90 Oxygen Delivery Method Oxygen Flow Rate (L/min) Weight Weight: 170.9 kg Body Mass Index (BMI) 55.6 Physical Exam Narrative POCUS: Limited POCUS exam was for heart failure. Using curvilinear probe (as nocardiac probe was available on the ED ultrasound) IVC was dilated and noncompressible with inspiration. Subxiphoid view of the heart. Show that was grossly normal. - Physical Exam General: Alert, Oriented x3, Cooperative HEENT: Atraumatic, PERRLA, EOMI, Normocephalic Oral: Moist Mucosa, No Gingival or Mucosal Lesions/ Ulcerations Neck: Supple, No JVD, Negative Carotid Bruits Lungs: Bibasilar crackles, Normal air movement Cardiovascular: Regular rate, Normal S1, Normal S2, No murmurs Abdomen: Bowel Sounds Present, Soft, Non Tender, Non-Distended, No Hepato-splenomegaly Extremities: No clubbing, No cyanosis, bilateral lower extremity edema. Skin: No rashes, No breakdown Musculoskeletal: No Tenderness to Palpation of Joints or Extremities Neurological: Moves all extremity spontaneously. Psych/Mental Status: Normal Affect, Appropriate Results Lab / Micro Data Attestation: I reviewed the patient's lab results. 07/02/24 13:14 07/02/24 13:14 Labs: Laboratory Results - last 24 hr 07/02/24 13:14: WBC 10.2, RBC 5.53, Hgb 14.7, Hct 45.4, MCV 82.1, MCH 26.6 L, MCHC 32.4, RDW Std Deviation 40.9, RDW Coeff of Masha 14.0, Plt Count 214, MPV 12.0, Immature Gran % (Auto) 0.300, Neut % (Auto) 75.1 H, Lymph % (Auto) 14.5 L,Mohave % (Auto) 7.7, Eos % (Auto) 1.4, Baso % (Auto) 1.0, AbsoluteNeuts (auto) 7.7, Absolute Lymphs (auto) 1.47, Nucleated RBC % 0, PT 16.1 H, INR 1.3, APTT 34.4, Sodium 139, Potassium 4.2, Chloride 103, Carbon Dioxide 25.2, Anion Gap 11, BUN 16, Creatinine 0.66 L,Estim Creat Clear Calc 200.49, Est GFR (MDRD) Non- Af 111, BUN/Creatinine Ratio 23.5 H, Glucose 182 H, Calcium 9.2, Troponin T High Sens 54 H*, NT pro BNP II 2002 H Micro: Microbiology 07/02/24 13:33 Mucosa - Nose SARS-CoV-2, Influenza & RSV (PCR) - Final EKG Initial EKG: Attestation: I personally reviewed and interpreted this EKG as follows: Prior EKG tracings: available for review EKG Rhythm Intrepretation: Atrial Flutter Imaging Radiology Impression Chest CTA 07/02/24 13:28 IMPRESSION: Bilateral pleural effusions right greater than left with bibasilar infiltration and/or atelectasis. No evidence of pulmonary embolism. Reading Location: [facility] Assessment & Plan Assessment/Plan (1) (HFpEF) heart failure with preserved ejection fraction: PLAN: Acute Patient has increased pleural effusions on his CT as compared to imaging from 06/03. Additionally his weight is gone up roughly 10 kg since his discharge on 04 June. Patient received 40 mg of IV furosemide in the ED. With his marked edema and the fact that he has worsened, put on a furosemide drip. Daily weights. I impressed on upon the patient that he needs to get a scale at home keep a record of his weights and would need to manage his weights until he gets down to his dry weight. In that way he can tell also if he started to put on weight he may not have any noticeable changes nor symptoms but that couldcertainly reflect that he may be having worsening heart failure if he is able tomonitor his weight. Will also have nutrition reinforced dietary restrictions regards to fluid restriction as well as sodium restriction. PLAN: Plan Chronic conditions * Atrial flutter: Anticoagulant with apixaban. Continue with diltiazem. * Diabetes mellitus type 2: Insulin-dependent. Continue with his glargine and prandial insulin. Addsliding scale insulin. Continue with empagliflozin. Check an A1c. * Seizure disorder: Continue levetiracetam. * Hyperlipidemia: Continue with atorvastatin. VTE prophylaxis: Not indicated as patient is already anticoagulated. Charges/Coding Visit Charges Inpatient E&M: 89725 Init Hosp L3 07/02/24 1616 Cosigner Signature (if applicable): CC: Dr. Des Hamm DO; Dr. Curtis Hernandez MD~ Signed [facility]05-27-2025 Discharge summary [facility] Medical Records Department [address] [place] [address] Emergency Department Summary 07/02/24 MR#: [id number] Acct: [id number] Name: MAXWELL SANDHU Rep #:[id number] : 1970 54 From: Derek galaviz DO PCP: Dr. Curtis Hernandez MD Status:R EG ER Location: ED HPI History of Present Illness Chief Complaint: Shortness of Breath Narrative Narrative: Chief complaint and HPI: Shortness of breath. History taken by patient as well as medical record. 54-year-old gentleman with history of DM2, HTN, recent diagnosis of atrial fibrillation and PE on Eliquis presents for evaluation of shortness of breath. Onset of shortness of breath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 cm healing lesion to the right foot, he describes as a burn. Psychiatric: appropriate affect Diabetic Foot Exam: Right Foot: warm, good capillary refill, normal DP and PT pulses, onychomycosis, and reduced sensation at proximal foot Left Foot: warm, good capillary refill, normal DP and PT pulses, onychomycosis, and reduced sensation at proximal foot. Lab/Imaging Data: 03/04/24: Hgb A1c: 10% Lab Results Component Value Date WBC 9.03 11/03/2023 HGB 15.3 11/03/2023 HCT 46.6 11/03/2023 MCV 80.1 11/03/2023 PLT 176 11/03/2023 Lab Results Component Value Date GLUCOSE 278 (H) 11/03/2023 NA 138 11/03/2023 K 4.1 11/03/2023 CL 100 11/03/2023 BUN 14 11/03/2023 CREATININE 0.54 11/03/2023 Lab Results Component Value Date ALT 23 10/08/2021 AST 13 10/08/2021 ALKPHOS 74 10/08/2021 BILITOT 0.6 10/08/2021 Lab Results Component Value Date TSH 1.37 10/08/2021 Lab Results Component Value Date CALCIUM 9.3 11/03/2023 Lab Results Component Value Date HGBA1C 10.0 (A) 03/04/2024 Lab Results Component Value Date LDLCALC 27 11/03/2023 CHOL 90 (L) 11/03/2023 HDL 37 (L) 11/03/2023 TRIG 130 11/03/2023 CHOLHDL 2.4 11/03/2023 Lab Results Component Value Date MICALBCREAT 122 (H) 12/15/2021 No results found for: CPEPTIDE Assessment and plan: Mr. Sandhu is a 54 y.o. male with T2DM. Has been following with PCP. Reports compliance with lantus and avoiding some sweets and sweetened beverages. Patient reports unable to afford januvia. At initial appointment with our office we stopped januvia, added trulicity (patient stopped after 4th dose due to GI upset). Has been taking humalog 10 units with meals and sliding scale after the meals. Patient was using freestyle silke, but had issues keeping it in place, would like to try dexcom. Reviewed Goals and plan as below. Patient instructed on risks associated with DM out of control. HbA1c goal 7% At goal? no 05/31: 12% at [facility] 03/04/24: Hgb A1c: 10% Lab Results Component Value Date HGBA1C 10.0 (A) 03/04/2024 HGBA1C 10.4 (H) 11/03/2023 HGBA1C 12.9 (H) 04/08/2022 Assessment of glycemic status BG runs in the 200s, only checking 2-3 times per week. Recommended testing frequency Started freestyle silke 3 plus, but ran out of refills, would like torestart. Recommended checking for overpatches/covers on amaz[employer]. Changes recommended Increase AM lantus to 30 units each morning. Adjust Humalog 15 units with meals Sliding scale at meal times or if high after 4-6 hours. Use as directed with Humalog insulin before meals and at bedtime. 151-200: 2 units fast acting insulin 201-250: 4 units fast acting insulin 251-300: 6 units fast acting insulin 301-350: 8 units fast acting insulin 351-400: 10 units fast acting insulin above 400: 12 units fast acting insulin, call the office. Start Jardiance 10 mg daily. Monitor for signs or symptoms of urinary tract infection (burning with urination, foul odor), or mycotic/yeast infection, itchy red rash in the groin. Retinopathy Due for dilated exam Moderate non proliferative retinopathy noted on exam 02/08/24, Saw Dr. Javier, will be seeing retina specialist Nephropathy Next microalb due Next Cr/GFR due DIANA inh/ARB indicated? no Soon, will order 3 months yes, on Losartan Neuropathy Due for foot exam yes, numbness and pressure sensation reduced bilateral feet 03/04/25 CV risk/Lipids ACC 10 yr ASCVD risk Due for repeat lipid panel Statin indicated? On atorvastatin 40 mg daily. Thyroid functions/other tests Lab Results Component Value Date TSH 1.37 10/08/2021 Will recheck, reports on thyroid medication in the past. No follow-ups on file. Time spent reviewing chart, during the encounter, putting orders and coordinating care on the encounter day is 30 minutes. Electronically Signed by: Paco Sears CNP 06/14/24 10:03 AM documented in this [id number] NoteSubjective Patient ID: Maxwell Sandhu is a 54 y.o. male. Pt was checking his bp and noted elevated HR so went to ER Pt was found to be in a. Fib with bilateral PE - right upper and left lower lobe with neg DVT Has appt with cardio in [place] up coming He is feeling well at this point Has appt with endo today The following portions of the patient's history were reviewed and updated as appropriate: allergies, current medications, past family history, past medical history, past social history, past surgical history, and problem list. Review of Systems Constitutional: Negative for chills, diaphoresis and fever. HENT: Negative for congestion and sinus pain. Eyes: Negative for redness. Respiratory: Positive for shortness of breath. Negative for cough and wheezing. Cardiovascular: Positive for palpitations. Negative for chest pain. Gastrointestinal: Negative for diarrhea, nausea and vomiting. Endocrine: Negative for polydipsia. Genitourinary: Negative for frequency and hematuria. Musculoskeletal: Negative for back pain. Neurological: Negative for weakness and headaches. Psychiatric/Behavioral: Negative for confusion. Objective Physical Exam Constitutional: General: He is not in acute distress. Appearance: He is obese. Cardiovascular: Rate and Rhythm: Normal rate and regular rhythm. Heart sounds: No murmur heard. No friction rub. No gallop. Pulmonary: Effort: Pulmonary effort is normal. Breath sounds: No wheezing or rales. Neurological: Mental Status: He is alert. Psychiatric: Attention and Perception: Attention normal. Mood and Affect: Mood normal. Behavior: Behavior is cooperative. Assessment/Plan: Diagnoses and all orders for this visit: Pulmonary embolism with infarction (HCC) We will continue with anticoagulation discussed with patient due to pulmonary embolism will need lifelong Paroxysmal atrial fibrillation (HCC) Continue with his current medications he has follow-up with cardiology discussed with patient that we can write for the Eliquis or cardio can whichever they prefer as he has 2 indications that would require anticoagulation Pure hypercholesterolemia Should get back on his atorvastatin states that he was confused after the hospital he felt they told him to stop his on his discharge paperwork and really should continue Type 2 diabetes mellitus without complication, without long-term current use of insulin (HCC) Needs better control of his diabetes he does have appointment with endocrinology today and they are working with him My ongoing relationship with Maxwell Sandhu requires continued responsibility and cognitive effort of being the focal point for all services related to chronic condition(s). Curtis Hernandez M.D. For any new medications prescribed today, patient was educated about indications for the medication, how to take the medication and potential side effects of the medications. AUTHENTICATED BY CURTIS HERNANDEZ, ON 06/15/2024 22:42:56[facility] [id number] History of Present illness Narrative* Curtis Hernandez MD - 06/14/2024 11:21 AM EDT Images from the original note were not included. Subjective Patient ID: Maxwell Sandhu is a 54 y.o. male. Pt was checking his bp and noted elevated HR so went to ER Pt was found to be in a. Fib with bilateral PE - right upper and left lower lobe with neg DVT Has appt with cardio in [place] area up coming He is feeling well at this point Has appt with endo today The following portions of the patient's history were reviewed and updated as appropriate: allergies, current medications, past family history, past medical history, past social history, past surgicalhistory, and problem list. Review of Systems Constitutional: Negative for chills, diaphoresis and fever. HENT: Negative for congestion and sinus pain. Eyes: Negative for redness. Respiratory: Positive for shortness of breath. Negative for cough and wheezing. Cardiovascular: Positive for palpitations. Negative for chest pain. Gastrointestinal: Negative for diarrhea, nausea and vomiting. Endocrine: Negative for polydipsia. Genitourinary: Negative for frequency and hematuria. Musculoskeletal: Negative for back pain. Neurological: Negative for weakness and headaches. Psychiatric/Behavioral: Negative for confusion. Objective Physical Exam Constitutional: General: He is not in acute distress. Appearance: He is obese. Cardiovascular: Rate and Rhythm: Normal rate and regular rhythm. Heart sounds: No murmur heard. No friction rub. No gallop. Pulmonary: Effort: Pulmonary effort is normal. Breath sounds: No wheezing or rales. Neurological: Mental Status: He is alert. Psychiatric: Attention and Perception: Attention normal. Mood and Affect: Mood normal. Behavior: Behavior is cooperative. Assessment/Plan: Diagnoses and all orders for this visit: Pulmonary embolism with infarction (HCC) We will continue with anticoagulation discussed with patient due to pulmonary embolism will need lifelong Paroxysmal atrial fibrillation (HCC) Continue with his current medications he has follow-up with cardiology discussed with patient that we can write for the Eliquis or cardio can whichever they prefer as he has 2 indications that would require anticoagulation Pure hypercholesterolemia Should get back on his atorvastatin states that he was confused after the hospital he felt they told him to stop his on his discharge paperwork and really should continue Type 2 diabetes mellitus without complication, without long-term current use of insulin (HCC) Needs better control of his diabetes he does have appointment with endocrinology today and they areworking with him My ongoing relationship with Maxwell Rich [place] requires continued responsibility and cognitive effortof being the focal point for all services related to chronic condition(s). Curtis Hernandez M.D. For any new medications prescribed today, patient was educated about indications for the medication, how to take the medication and potential side effects of the medications. documented in this [id number] [facility] Medical Records Department [address] [place] [id number] Discharge Summary 06/04/24 0847 MR#: [id number] Acct: [id number] Name: MAXWELL SANDHU Rep #: [id number] : 1970 54 From: Kaiden Bullard MD PCP: Dr. Curtis Hernandez MD Status:ADM IN Location: [place] [address] Providers Date of Admission: 06/03/24 Date of Discharge: 06/04/24 Primary Care Physician: Dr. Curtis Hernandez MD Reason For Visit: BILATERAL PE'S, PULM INFARCTION, HYPERGLYCEMIA AND Diagnosis Discharge Diagnosis (1) Bilateral pulmonary embolism: Status: Acute Code(s): I26.99 - Other pulmonary embolism without acute cor pulmonale (2) Erythrocytosis: Status: Acute Code(s): D75.1 - Secondary polycythemia (3) Tachycardia: Status: Acute Code(s): R00.0 - Tachycardia, unspecified (4) Pulmonary embolism with infarction: Status: Acute Code(s): I26.99 - Other pulmonary embolism without acute cor pulmonale (5) Elevated troponin: Status: Acute Code(s): R79.89 - Other specified abnormal findings of blood chemistry (6) Type 2 diabetes mellitus with hyperglycemia: Status: Acute Code(s): E11.65 - Type 2 diabetes mellitus with hyperglycemia Qualifiers: Diabetes mellitus 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 insulin use: with 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 use Qualified Code(s): E11.65 - Type 2 diabetes mellitus with hyperglycemia; Z79.4 - terminal gauger (current) use of insulin (7) Ear infection: Status: Acute Code(s): H66.90 - Otitis media, unspecified, unspecified ear (8) Morbid obesity with BMI of 50.0-59.9, adult: Status: Acute Code(s): E66.01 - Morbid (severe) obesity due to excess calories; Z68.43 - Body mass index [BMI] 50.0-59.9, adult (9) Dehydration: Status: Acute Code(s): E86.0 - Dehydration (10) Hypertension: Status: Chronic Code(s): I10 - Essential (primary) hypertension Qualifiers: Hypertension type: unspecified Qualified Code(s): I10 - Essential (primary) hypertension Plan Patient is a 54-year-old gentleman who presented with palpitations. Was found to have elevated D- dimer and elevated troponin. Subsequent workup with CTA of the chest did show Findings are concerning for areas of pulmonary embolism at the right upper and left lower lobes as as well as Possible associated developing infarct at the left lower lobe 1. Acute pulmonary embolism ??? CTA of the chest did show Findings are concerning for areas of pulmonary embolism at the right upper and left lower lobes as as well as Possible associated developing infarct at the left lower lobe patient was started on heparin admitted to monitored bed 2D echo ordered for subsequent eval ??? 06/04/2024; bilateral venous duplex came back negative for DVT. 2D echo did show Moderate concentric left ventricular hypertrophy. The left ventricular ejection fraction is 50 %. Stage 1 diastolic dysfunction. There is mild biatrial dilatation. 2. New onset a flutter/A-fib ??? Admitted to telemetry. Patient started on heparin as part of treatment for his pulmonary embolism. Patient was started on IV Cardizem plan is to wean off and start patient on p.o. Cardizem ??? Prescription written for Cardizem on discharge 3. Elevated troponin ??? Secondary to demand ischemia from tachycardia as well as patient pulmonary embolism 4. Diabetes mellitus type 2 ??? Patient presented with elevated glucose levels of 318 due to recent steroid use. Hemoglobin A1c came back at 12.2. Patient subsequently started on long-acting insulin in addition to Accu-Cheks AC and at bedtime. Patient was also placed on 1800 ADA diet and consultation placed to dietitian 5. Recent otitis media ??? Patient was treated with amoxicillin 6. Hypertension ??? Blood pressure controlled, home medications continued with dose adjustment as needed 7. Dyslipidemia ???Patient is on statin therapy, continued at home dose 8. Obstructive sleep apnea ??? Consistent use of PAP therapy encouraged 9. History of CVA ??? Patient is on antiplatelet therapy with aspirin continue 10. History of seizure disorder ??? Patient is on Keppra did continue 11. Class III obesity with BMI of 52 ??? Complicating care weight loss advised Time spent in the patient's overall evaluation,decision-making process, review of diagnostic data, adjustment of management, discussion with other providers, nursing nursing and ancillary staff involved in patient's care documentation, 35 Minutes Medications at Discharge Home Medications levetiracetam 500 mg tablet 500 mg PO BID keppra 11/01/23 aspirin 81 mg chewable tablet 1 tab PO DAILY heart health 06/03/24 atorvastatin 40 mg tablet 40 mg PO QHS choleterol 06/03/24 apixaban 5 mg tablet 5 mg PO BID #134 tabs 06/04/24 diltiazem HCl 120 mg capsule,extended release 24 hr 120 mg PO Q12 120 days #240 caps 06/04/24 insulin glargine 100 unit/mL (3 mL) subcutaneous pen (Lantus Solostar U-100 Insu (more content not included)...[facility]04-28-2025 Radiology Diagnostic study note [facility] Imaging Services [address] [place] [address] CTA Chest W/WO Contrast MR#: [id number] Acct: [id number] Name: MAXWELL SANDHU Rep #: [id number] : 1970 M 54 From: Varun Salcido MD PCP: Dr. Curtis Hernandez MD Status: R EG ER Study:CTA Chest W/WO Contrast Date of Exam: 06/03/24 Exam# [id number] Ordering Dr: John Schneider MD PROCEDURE: CTA CHEST W/WO CONTRAST 06/03/2024 REASON FOR EXAM: TACHYCARDIA TECHNIQUE: CTA imaging of the chest with intravenous contrast. Multiplanar and multisequence images were obtained. Maximum intensity projection (MIPs) Volume rendering and CONTRAST: 100 cc Isovue 370 IV One or more dose reduction techniques were used (e.g., Automated exposure control, adjustment of the mA and/or kV according to patient size, use of iterative reconstruction technique). RADIATION DOSE SUMMARY: CTDlvol: 42.74 mGy DLP: 607.93 mGycm COMPARISON: None available FINDINGS: Nonocclusive filling defect is seen at the right upper lobe segmental branching of the interlobar artery for example axial 190 and coronal 161 consistent with nonocclusive pulmonary embolism. Bandlike opacity at the left lowerlobe with lack of contrast definitely seen in the subsegmental pulmonary artery branches for example axial 112 concerning for possible occlusive subsegmental branch pulmonary embolism and possible associated developing pulmonary infarct. No large central saddle pulmonary embolism. No CT evidence to suggest possible right heart strain. Patchy ground-glass opacity at the lingula, nonspecific. The central airways appear patent. Small bandlike subpleural opacity posterior right upper lobe for example axial 190. Thoracic aorta and standard appearing 3 branch arch appears within limits. Noteof mild appearing coronary calcification. No pericardial or pleural effusion. No adenopathy identified. Sequela of previousgranulomatous disease. Limited images of the upper abdomen with suggestion of possible punctate calcified gallstones for example axial 24. Status post lower cervical anterior fusion, partially imaged. CT/CTA Chest W/WO Contrast IMPRESSION: Findings are concerning for areas of pulmonary embolism at the right upper and left lower lobes as described above. Possible associated developing infarct at the left lower lobe as above. Findings discussed by myself by phone with Dr. Schneider at 1:07 a.m. 06/03/2024 Reading Location: [facility] CC: Dr. John Schneider MD; Dr. Curtis Hernandez MD ~ [employer] Worker: Signed [facility]04-28-2025 Evaluation note* Diagnosis Onset Date Resolution Status Admit Date Bilateral pulmonary embolism acute June 03, 2024 2:08am Morbid obesity with BMI of 50.0-59.9, adult acute June 03 2:08am Pulmonary embolism with infarction acute June 03, 2024 2:08am Type 2 diabetes mellitus wit h hyperglycemia acute June 03, 2024 2:08am Hypertension chronic June 03, 2024 2:08am Dehydration resolved June 03, 2 025 2:08am Ear infection resolved June 03, 2024 2:08am Elevated troponin resolved May 082024 2:08am Erythrocytosis resolved May 2:08am Tachycardia resolved June 03, 2 025 2:08am (HFpEF) heart failure with preserved ejection fraction acute July 02, 2024 4:06pm [facility] Work Phone: 1(910) 383-519204-28-2025 Evaluation note* Diagnosis Onset Date Resolution Status Admit Date Bilateral pulmonary embolism acute June 03, 2024 2:08am Morbid obesity with BMI of 50.0-59.9, adult acute June 03 2:08am Pulmonary embolism with infarction acute June 03, 2024 2:08am Type 2 diabetes mellitus wit h hyperglycemia acute June 03, 2024 2:08am Hypertension chronic June 03, 2024 2:08am Dehydration resolved June 03, 2 025 2:08am Ear infection resolved June 03, 2024 2:08am Elevated troponin resolved May 082024 2:08am Erythrocytosis resolved May 2:08am Tachycardia resolved June 03, 2 025 2:08am (HFpEF) heart failure with preserved ejection fraction acute July 02, 2024 4:06pm Acute heart failure with preserved ejection fraction (HFpEF) acute July 02, 2024 4 :06pm Hypoxia acute July 02, 2024 4:06pm [facility] Work Phone: 1(335) 621-900304-28-2025 Evaluation note* Diagnosis Onset Date Resolution Status Admit Date Bilateral pulmonary embolism acute June 03, 2024 2:08am Morbid obesity with BMI of 50.0-59.9, adult acute June 03 2:08am Pulmonary embolism with infarction acute June 03, 2024 2:08am Type 2 diabetes mellitus wit h hyperglycemia acute June 03, 2024 2:08am Hypertension chronic June 03, 2024 2:08am Dehydration resolved June 03, 2 025 2:08am Ear infection resolved June 03, 2024 2:08am Elevated troponin resolved May 082024 2:08am Erythrocytosis resolved May 2:08am Tachycardia resolved June 03, 2 025 2:08am Acute heart failure with preserved ejection fraction (HFpEF) resolved July 02, 2024 4 :06pm Hypoxia resolved July 02, 2024 4:06pm (HFpEF) heart failure with preserved ejection fraction inactive July 02, 2024 4:06pm Free intraperitoneal air acute July 24, 2024 11:29am Small bowel obstruction acute J 2024 11:29am Type 2 diabetes mellitus wit h hyperglycemia acute July 24, 2024 11:29am Hypertension chronic July 24, 2 025 11:29am [facility] Work Phone: 1(821) 189-167504-28-2025 Evaluation note* Diagnosis Onset Date Resolution Status Admit Date Bilateral pulmonary embolism acute June 03, 2024 2:08am Morbid obesity with BMI of 50.0-59.9, adult acute June 03 2:08am Pulmonary embolism with infarction acute June 03, 2024 2:08am Type 2 diabetes mellitus wit h hyperglycemia acute June 03, 2024 2:08am Hypertension chronic June 03, 2024 2:08am Dehydration resolved June 03, 2 025 2:08am Ear infection resolved June 03, 2024 2:08am Elevated troponin resolved May 082024 2:08am Erythrocytosis resolved May 2:08am Tachycardia resolved June 03, 2 025 2:08am Acute heart failure with preserved ejection fraction (HFpEF) resolved July 02, 2024 4 :06pm Hypoxia resolved July 02, 2024 4:06pm (HFpEF) heart failure with preserved ejection fraction inactive July 02, 2024 4:06pm Free intraperitoneal air acute July 24, 2024 11:29am Small bowel obstruction acute J une 2024 11:29am Type 2 diabetes mellitus wit h hyperglycemia acute July 24, 2024 11:29am Hypertension chronic July 24, 025 11:29am Free intraperitoneal air acute August 16, 2024 2:24pm Screen for colon cancer acute J courtney 2024 2:24pm [facility] Work Phone: 1(770) 638-778604-28-2025 Discharge summary [facility] Medical Records Department [address] [place] [address] Emergency Department Summary 06/02/24 MR#: [id number] Acct: [id number] Name: MAXWELL SANDHU Rep #:[id number] : 1970 54 From: John Schneider MD PCP: Dr. Curtis Hernandez MD Status:R EG ER Location: ED HPI History of Present Illness Chief Complaint: Palpitations Narrative Narrative: 54-year-old male past medical history of diabetes, previous stroke on baby aspirin, seizure disorder on Keppra, hypertension, presents with tachycardia that has had for the last 3 to 4 days. He relates history that about 4 to 5 days ago he was having ear pain. He went to urgent care and was put on antibiotics and prednisone. A few days later, he took his blood pressure and henoticed that at that time he had a heart rate in the 130s. He is asymptomatic with this and does not have chest pain or shortness of breath, he does not feel palpitations. The other day, he took his blood pressure and it was low, and hisheart rate came down to 108 bpm, but he states he took an hour later and it has remained in the 130s for the last few days. He denies any exacerbating or alleviating factors. No shortness of breath. No leg swelling. [facility] Medical History Hypertension High cholesterol Diabetes Home Medications ?Medication ?Instructions ?Recorded ?Last Taken ?Type doxycycline hyclate 100 mg capsule 100 mg PO BID 10/31 Unknown History insulin glargine 100 unit/mL (3 unit subcut 11/01/23 U nknown History mL) subcutaneous pen (Lantus Solostar U-100 Insulin) levetiracetam 500 mg tablet 500 mg PO BID 11/01/23 Unk nown History losartan 50 mg tablet 50 mg PO DAILY 11/01/23 Unkn own History amoxicillin 875 mg tablet 875 mg PO BID 06/03/24 Unkno wn History aspirin 81 mg chewable tablet 1 tab PO DAILY 06/03/24 Unknown History atorvastatin 40 mg tablet 40 mg PO DAILY 06/03/24 Unkn own History insulin lispro 100 unit/mL 10 unit subcut TID 06/03/24 Unknown History subcutaneous pen nifedipine 30 mg tablet,extended 30 mg PO DAILY Unknown History release Allergy/AdvReac Type Severity Reaction Status Date / Time No Known Allergies Allergy Verified 06/02/24 23:07 Social History household members: spouse and family housing: house Smoking Status: Current every day smoker tobacco type: cigarettes ROS ROS ED ROS Narrative Constitutional: No fever, no chills. HEENT: No sore throat. No neck pain. No rhinorrhea. Positive for ear pain for which she went to urgent care and received prednisone and an antibiotic. Cardiovascular: No chest pain. No palpitations. No pedal edema. Respiratory: No cough, no shortness of breath. Abdominal: No abdominal pain. No nausea. No vomiting. Genitourinary: No dysuria. No hematuria. Musculoskeletal: No myalgias. No arthralgias. Neurologic: No headaches. No dizziness. No lightheadedness. EXAM Physical Exam Narrative Exam Narrative: Afebrile. Vital signs noted. Nontoxic-appearing. Cardiovascular examination reveals a regular tachycardia at 135 bpm. Lungs are clear to auscultation bilaterally. Abdomen soft, nontender, without guarding or rebound. Positive bowel sounds. Neurological examination nonfocal, nonlateralizing. No noted pedal edema. Const Vital Signs: 06/02/24 23:08 06/02/24 23:10 06/03/24 00:07 Temperature 97 F L 98 F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 in no distress. Head: atrautmatic, no facial lesions observed Eyes: no lid retraction (stare), no proptosis Neck: supple, normal range of motion. no thyromegaly present Cardiovascular: normal rate, regular rhythm, normal heart sounds and intact distal pulses, no edema. Pulmonary/Chest: effort normal and breath sounds normal, no respiratory distress Abdominal: soft, no tenderness Musculoskeletal: nomal range of motion, normal muscle mass and strength Neurological: alert and oriented, no focal deficits, no tremors, DTRs normal, sensation decreased below the ankles Skin: warm and moist, no rash noted, no acanthosis nigricans, no lipohypertrophy/lipodystrophy, no ulcers on the feet and nails are intact he has an approximate 2-3 cm healing lesion to the right foot, he describes as a burn. Psychiatric: appropriate affect Diabetic Foot Exam: Right Foot: warm, good capillary refill, normal DP and PT pulses, onychomycosis, and reduced sensation at proximal foot Left Foot: warm, good capillary refill, normal DP and PT pulses, onychomycosis, and reduced sensation at proximal foot. Lab/Imaging Data: 03/04/24: Hgb A1c: 10% Lab Results Component Value Date WBC 9.03 11/03/2023 HGB 15.3 11/03/2023 HCT 46.6 11/03/2023 MCV 80.1 11/03/2023 PLT 176 11/03/2023 Lab Results Component Value Date GLUCOSE 278 (H) 11/03/2023 NA 138 11/03/2023 K 4.1 11/03/2023 CL 100 11/03/2023 BUN 14 11/03/2023 CREATININE 0.54 11/03/2023 Lab Results Component Value Date ALT 23 10/08/2021 AST 13 10/08/2021 ALKPHOS 74 10/08/2021 BILITOT 0.6 10/08/2021 Lab Results Component Value Date TSH 1.37 10/08/2021 Lab Results Component Value Date CALCIUM 9.3 11/03/2023 Lab Results Component Value Date HGBA1C 10.4 (H) 11/03/2023 Lab Results Component Value Date LDLCALC 27 11/03/2023 CHOL 90 (L) 11/03/2023 HDL 37 (L) 11/03/2023 TRIG 130 11/03/2023 CHOLHDL 2.4 11/03/2023 Lab Results Component Value Date MICALBCREAT 122 (H) 12/15/2021 No results found for: CPEPTIDE Assessment and plan: Mr. Sandhu is a 53 y.o. male with T2DM. Has been following with PCP. Reports compliance with lantus and avoiding some sweets and sweetened beverages. Patient reports unable to afford januvia. At initial appointment with our office we stopped januvia, added trulicity (patient stopped after 4th dose due to GI upset). Has been taking humalog 10 units with meals and sliding scale after the meals. Patient was using freestyle silke, but had issues keeping it in place, would like to try dexcom. Reviewed Goals and plan as below. Patient instructed on risks associated with DM out of control. HbA1c goal 7% At goal? no 03/04/24: Hgb A1c: 10% Lab Results Component Value Date HGBA1C 10.4 (H) 11/03/2023 HGBA1C 12.9 (H) 04/08/2022 HGBA1C 11.9 (H) 10/08/2021 Assessment of glycemic status BG runs in the 200s, only checking 2-3 times per week. Recommended testing frequency Started freestyle silke 3 plus, but continues to fall off, would liketry Dexcom in it's place. Recommended checking for overpatches/covers on [employer]. Changes recommended Increase AM lantus to 30 units each morning. Adjust Humalog 14 units with meals Sliding scale at meal times or if high after 4-6 hours. Use as directed with Humalog insulin before meals and at bedtime. 151-200: 2 units fast acting insulin 201-250: 4 units fast acting insulin 251-300: 6 units fast acting insulin 301-350: 8 units fast acting insulin 351-400: 10 units fast acting insulin above 400: 12 units fast acting insulin, call the office. Retinopathy Due for dilated exam Moderate non proliferative retinopathy noted on exam 02/08/24, Saw Dr. Javier, will be seeing retina specialist Nephropathy Next microalb due Next Cr/GFR due DIANA inh/ARB indicated? no Soon, will order 3 months yes, on Losartan Neuropathy Due for foot exam yes, numbness and pressure sensation reduced bilateral feet 03/04/25 CV risk/Lipids ACC 10 yr ASCVD risk Due for repeat lipid panel Statin indicated? On atorvastatin 40 mg daily. Thyroid functions/other tests Lab Results Component Value Date TSH 1.37 10/08/2021 Will recheck, reports on thyroid medication in the past. No follow-ups on file. Time spent reviewing chart, during the encounter, putting orders and coordinating care on the encounter day is 30 minutes. Electronically Signed by: Paco Sears CNP 03/04/24 10:03 AM documented in this [id number] Evaluation + Plan note* Assessment & Plan Note - Peggy Way CNP - 01/16/2024 9:43 AM EST Associated Problem(s): Vision loss Unchanged. Encouraged eye exam with dilated fundoscopy and perimetry. Continue aspirin 81 mg daily and atorvastatin 40 mg daily for stroke prevention. Stroke signs and symptoms discussed. [id number] Miscellaneous Notes* Assessment & Plan Note - Peggy Way CNP - 01/16/2024 9:43 AM ESTAssociated Problem(s): Vision loss Unchanged. Encouraged eye exam with dilated fundoscopy and perimetry. Continue aspirin 81 mg daily and atorvastatin 40 mg daily for stroke prevention. Stroke signs and symptoms discussed. * Assessment & Plan Note - Peggy Way CNP - 01/16/2024 9:41 AM EST Associated Problem(s): Seizure (HCC) Last seizure September 2023 Continue Keppra 500 mg BID. Side effects of the medication discussed. Patient denies any side effects of medication and verbalizes compliance with taking medication as instructed. Encouraged to call when further refills are needed. Seizure precautions and safety measures discussed. Avoid unprotected heights, open malone alone, and avoid use of power tools and equipment without the proper safe guards in place. Patient is aware if another seizure occurs he would need to discontinue driving until he is seizure free for 6 months. Avoid any possible triggers. Maintain adequate sleep, avoid missed medications, maintain healthy diet and exercise habits, avoid excessive alcohol use, and avoid drug use. 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 EEG 11/29/2023: Normal MRI Brain ([facility]) 09/08/2023: Potential focus of mild reduced diffusivity in the chantel, slightly right of midline, which could potentially represent an acute/subacute infarct vs artifact - later determined to be artifact vs stroke. Recommend dilated fundoscopy and perimetry. Patient was encouraged to schedule follow-up eye exam. Contact for [facility] provided. Follow-up: 4 months or sooner as needed. documented in this [id number] Evaluation + Plan note* Assessment & Plan Note - Peggy Way CNP - 01/16/2024 9:41 AM EST Associated Problem(s): Seizure (HCC) Last seizure September 2023 Continue Keppra 500 mg BID. Side effects of the medication discussed. Patient denies any side effects of medication and verbalizes compliance with taking medication as instructed. Encouraged to call when further refills are needed. Seizure precautions and safety measures discussed. Avoid unprotected heights, open malone alone, and avoid use of power tools and equipment without the proper safe guards in place. Patient is aware if another seizure occurs he would need to discontinue driving until he is seizure free for 6 months. Avoid any possible triggers. Maintain adequate sleep, avoid missed medications, maintain healthy diet and exercise habits, avoid excessive alcohol use, and avoid drug use. 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 EEG 11/29/2023: Normal MRI Brain ([facility]) 09/08/2023: Potential focus of mild reduced diffusivity in the chantel, slightly right of midline, which could potentially represent an acute/subacute infarct vs artifact - later determined to be artifact vs stroke. Recommend dilated fundoscopy and perimetry. Patient was encouraged to schedule follow-up eye exam. Contact for [facility] provided. Follow-up: 4 months or sooner as needed. [id number] Instructions* Patient Instructions* Peggy Way CNP - 12/27/2023 8:47 AM EST Recommend routine eye exam. [facility] [phone] Continue Keppra 500 mg twice a day. Monitor for any breakthrough episodes or spells. Call with any further questions or concerns. Follow-up in 4 months or sooner as needed. [phone] Seizure First Aid Always stay with the person until the seizure is over. Pay attention to how long the seizure lasts. Most usually last a few seconds to a few minutes. Prevent injury by moving objects away from the person. Do not hold the person down. This could cause more injury. Do not put anything in the person's mouth. Their jaw and facial muscles will tighten during a seizure causing them to bite down. Make sure they are breathing ok. If they are lying down turn them on their side with their mouth pointing towards the ground to prevent saliva from blocking their airway. Sometimes during a seizures it can look like they have stopped breathing. This will happen when the muscles tighten in their chest but when the seizure ends they will relax and breathing should resume to normal. Avoid giving anything to eat or drink until the person is fully awake and alert. For seizure lasting longer than 5 minutes or if the person does not wake up after a seizure call 911. Seizure Safety Tips Avoid driving if you continue to have seizures or if you are experiencing side effects of your seizure medication that is affecting your ability to be safe on the road. It is recommended that you be seizure free for 6 months prior to resuming driving. Caution around open malone (have a reina) or open flames. Avoid unprotected heights such as working on ladders, especially if seizures are not controlled. Make sure the proper safety guards are in place on large equipment and power tools. Avoid use of these if your seizures are not controlled. Take your medication, as instructed, every day. Monitor for any changes in mood or behavior including depression, anxiety, and suicidal thoughts orideas. documented in this [id number] NotePatient ID: Maxwell Sandhu is a 53 y.o. male. Assessment/Plan: Problem List Diagnosed Seizure (HCC) - Primary Last seizure September 2023 Continue Keppra 500 mg BID. Side effects of the medication discussed. Patient denies any side effects of medication and verbalizes compliance with taking medication as instructed. Encouraged to call when further refills are needed. Seizure precautions and safety measures discussed. Avoid unprotected heights, open malone alone, and avoid use of power tools and equipment without the proper safe guards in place. Patient is aware if another seizure occurs he would need to discontinue driving until he is seizure free for 6 months. Avoid any possible triggers. Maintain adequate sleep, avoid missed medications, maintain healthy diet and exercise habits, avoid excessive alcohol use, and avoid drug use. 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 EEG 11/29/2023: Normal MRI Brain ([facility]) 09/08/2023: Potential focus of mild reduced diffusivity in the chantel, slightly right of midline, which could potentially represent an acute/subacute infarct vs artifact - later determined to be artifact vs stroke. Recommend dilated fundoscopy and perimetry. Patient was encouraged to schedule follow-up eye exam. Contact for [facility] provided. Follow-up: 4 months or sooner as needed. Relevant Medications levETIRAcetam (KEPPRA) 500 MG tablet Vision loss Unchanged. Encouraged eye exam with dilated fundoscopy and perimetry. Continue aspirin 81 mg daily and atorvastatin 40 mg daily for stroke prevention. Stroke signs and symptoms discussed. Follow-up in 4 months or sooner as needed. Time statement: A total of 40 minutes were spent on this encounter, which includes the time reviewing the patient's diagnostic tests, seeing the patient, speaking with nursing staff, and documenting in the record. Peggy Way, MSN, INSERTING PRESS OPERATOR [facility] Neurology Subjective HPI Maxwell Sandhu is a 53 year old male here for seizure follow-up. His daughter and grandson accompany him to the appointment today. He noticed painless loss of vision of left eye that began the morning of 11/03/2023. He states if he covers his right eye he will see a vasquez spot in the central vision of her left eye. He states when both eyes are open he does not notice this. Collaborative history for today's visit was taken from patient, family, and [facility] chart. He developed sudden onset of left painless central scotoma in the morning of 11/03/2023. No headache or migraine. One month prior he was treated at [facility] for numbness on his left lip followed by curling of his left hand and leg that sabino on for about 3 minutes in duration up to several hours. Stroke was of concern with that admission, specifically pontine infarct but this was later determined to be artifact and his symptoms were likely related to seizure disorder. He was placed on aspirin 81 mg daily and atorvastatin 40 mg daily for stroke prevention. He was diagnosed to be having seizures and started on Keppra 500 mg twice a day. He has not had any further episodes with the left side since Keppra was started. He denies any side effects or concerns with medication. He states vision changes is about the same. If he covers his right eye he will see a vasquez spot in his central vision of his left eye, but when both eyes are open he does not notice this. EEG 11/29/2023: Normal CTA Head Neck 11/03/2023: No acute intracranial process. No large vessel occlusion. No significant intracranial stenosis. No aneurysm. Dural venous sinuses are patent. Common carotids and internal carotids show no significant stenosis or dissection. The left vertebral artery shows no dissection or significant stenosis. There is severe stenosis in the proximal V1, secondary to either a soft plaque or mural thrombus. MRI Brain [facility] 09/08/2023: Potential focus of mild reduced diffusivity in the chantel, slightly right of midline, which could potentially represent an acute/subacute infarct vs artifact - later determined to be artifact vs stroke. He presents to his appointment today in a wheelchair. 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 He's able to ambulate with a walker but only for short distances. Review of patients current medication list along with allergies, past medical history, surgical history, family history, and social history was reviewed and updated as appropriate. Review of Systems Constitutional: Negative for activity change, appetite change, chills, fatigue, fever and unexpected weight change. HENT: Negative for trouble swallowing. Eyes: Positive for visual disturbance. Respiratory: Negative for cough, shortness of breath and wheezing. Cardiovascular: Negative for chest pain and palpitations. Gastrointestinal: Negative for (more content not included)...[facility]11-20-2024 History of Present illness Narrative* Peggy Way CNP - 12/27/2023 8:39 AM EST Patient ID: Maxwell Sandhu is a 53 y.o. male. Assessment/Plan: Problem List Diagnosed Seizure (HCC) - Primary Last seizure September 2023 Continue Keppra 500 mg BID. Side effects of the medication discussed. Patient denies any side effects of medication and verbalizes compliance with taking medication as instructed. Encouraged to call when further refills are needed. Seizure precautions and safety measures discussed. Avoid unprotected heights, open malone alone, and avoid use of power tools and equipment without the proper safe guards in place. Patient is aware if another seizure occurs he would need to discontinue driving until he is seizure free for 6 months. Avoid any possible triggers. Maintain adequate sleep, avoid missed medications, maintain healthy diet and exercise habits, avoid excessive alcohol use, and avoid drug use. 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 EEG 11/29/2023: Normal MRI Brain ([facility]) 09/08/2023: Potential focus of mild reduced diffusivity in the chantel, slightly right of midline, which could potentially represent an acute/subacute infarct vs artifact - later determined to be artifact vs stroke. Recommend dilated fundoscopy and perimetry. Patient was encouraged to schedule follow-up eye exam. Contact for [facility] provided. Follow-up: 4 months or sooner as needed. Relevant Medications levETIRAcetam (KEPPRA) 500 MG tablet Vision loss Unchanged. Encouraged eye exam with dilated fundoscopy and perimetry. Continue aspirin 81 mg daily and atorvastatin 40 mg daily for stroke prevention. Stroke signs and symptoms discussed. Follow-up in 4 months or sooner as needed. Time statement: A total of 40 minutes were spent on this encounter, which includes the time reviewing the patient's diagnostic tests, seeing the patient, speaking with nursing staff, and documenting in the record. Peggy Way, MSN, INSERTING PRESS OPERATOR [facility] Neurology Subjective HPI Maxwell Sandhu is a 53 year old male here for seizure follow-up. His daughter and grandson accompanyhim to the appointment today. He noticed painless loss of vision of left eye that began the morningof 11/03/2023. He states if he covers his right eye he will see a vasquez spot in the central vision ofher left eye. He states when both eyes are open he does not notice this. Collaborative history for today's visit was taken from patient, family, and Epic chart. He developed sudden onset of left painless central scotoma in the morning of 11/03/2023. No headacheor migraine. One month prior he was treated at [facility] for numbness on his left lip followed by curlingof his left hand and leg that sabino on for about 3 minutes in duration up to several hours. Stroke was of concern with that admission, specifically pontine infarct but this was later determined to be artifact and his symptoms were likely related to seizure disorder. He was placed on aspirin 81 mg daily and atorvastatin 40 mg daily for stroke prevention. He was diagnosed to be having seizures and started on Keppra 500 mg twice a day. He has not had any further episodes with the left side since Keppra was started. He denies any side effects or concerns with medication. He states vision changes is about the same. If he covers his right eye he will see a vasquez spot in his central vision of his left eye, but when both eyes are open he does not notice this. EEG 11/29/2023: Normal CTA Head Neck 11/03/2023: No acute intracranial process. No large vessel occlusion. No significant intracranial stenosis. No aneurysm. Dural venous sinuses are patent. Common carotids and internal carotids show no significant stenosis or dissection. The left vertebral artery shows no dissection or si gnificant stenosis. There is severe stenosis in the proximal V1, secondary to either a soft plaque or mural thrombus. MRI Brain [facility] 09/08/2023: Potential focus of mild reduced diffusivity in the chantel, slightly right of midline, which could potentially represent an acute/subacute infarct vs artifact - later determined to be artifact vs stroke. He presents to his appointment today in a wheelchair. 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 He's able to ambulate with a walker but only for short distances. Review of patients current medication list along with allergies, past medical history, surgical history, family history, and social history was reviewed and updated as appropriate. Review of Systems Constitutional: Negative for activity change, appetite change, chills, fatigue, fever and unexpected weight change. HENT: Negative for trouble swallowing. Eyes: Positive for visual disturbance. Respiratory: Negative for cough, shortness of breath and wheezing. Cardiovascular: Negative for chest pain and palpitations. Gastrointestinal: Negative for abdominal pain, nausea and vomiting. Endocrine: Negative for polydipsia, polyphagia and polyuria. Genitourinary: Negative for difficulty urinating. Musculoskeletal: Positive for gait problem. Negative for arthralgias, back pain and neck pain. Skin: Negative for rash. Neurological: Positive for weakness. Negative for dizziness, tremors, seizures, syncope, light-headedness and headaches. Psychiatric/Behavioral: Negative for confusion, decreased concentration, dysphoric mood and sleep disturbance. The patient is not nervous/anxious. Objective BP 137/89 (BP Location: Left arm, Patient Position: Sitting, BP Cuff Size: X- large Adult) Pulse 78 Resp 16 SpO2 97% Neurological Exam Mental Status Awake, alert and oriented to person, place and time. Oriented to person, place and time. Oriented to person, place, and time. Speech is normal. Language is fluent with no aphasia. Cranial Nerves CN II: Visual acuity is normal. Vasquez scotoma to central vision with right eye closed.. Visual raymond full to confrontation. CN III, IV, : Extraocular movements intact bilaterally. Normal lids and orbits bilaterally. Pupils equal round and reactive to light bilaterally. CN V: Facial sensation is normal. CN VII: Full and symmetric facial movement. CN VIII: Hearing is normal. CN IX, X: Palate elevates symmetrically. Normal gag reflex. CN XI: Shoulder shrug strength is normal. CN XII: Tongue midline without atrophy or fasciculations. Motor Normal muscle bulk throughout. Strength is 5/5 in all four extremities except as noted. Slight BLE weakness.. Sensory Sensation is intact to light touch, pinprick, vibration and proprioception in all four extremities. Reflexes Deep tendon reflexes are 2+ and symmetric in all four extremities. Coordination [id number]-at-[id number], rapid alternating movements and swxt-uv-fosv normal bilaterally without dysmetria. Gait Normal gait. Normal Tandem Gait Test. Not tested. Primarily wheelchair bound due to spinal cord injury.. Physical Exam Vitals and nursing note reviewed. Constitutional: Appearance: He is well-developed. Comments: Patient is very pleasant and cooperative for exam. He is well groomed and dressed appropriate for season. HENT: Head: Normocephalic and atraumatic. Eyes: General: Lids are normal. Extraocular Movements: Extraocular movements intact. Pupils: Pupils are equal, round, and reactive to light. Cardiovascular: Rate and Rhythm: Normal rate and regular rhythm. Heart sounds: No murmur heard. Pulmonary: Effort: Pulmonary effort is normal. No respiratory distress. Breath sounds: Normal breath sounds. No wheezing. Abdominal: General: Bowel sounds are normal. There is no distension. Palpations: Abdomen is soft. Musculoskeletal: General: Normal range of motion. Cervical back: Normal range of motion and neck supple. Skin: General: Skin is warm and dry. Findings: No rash. Neurological: Mental Status: He is oriented to person, place, and time. Cranial Nerves: No cranial nerve deficit. Coordination: Coordination is intact. Gait: Gait is intact. Tandem walk normal. Deep Tendon Reflexes: Reflexes are normal and symmetric. Psychiatric: Speech: Speech normal. Behavior: Behavior normal. Thought Content: Thought content normal. Judgment: Judgment normal. documented in this [id number] Note-Right foot burn/wound Patient is a pleasant 53-year-old male who comes in today following up today for right foot burn. He states he has been using Silvadene doing great feels really well Physical Vascular: DP PT pulses are easily palpable 2 out of 4. CFT is fair no edema. Derm: Dorsal burn and wound today are epithelialized well and scabbed substantially improved no surrounding erythema no streaking no fluctuance or crepitation. Neuro: Normal. Musculoskeletal: Muscle strength is 5 out of 5 fair tone Assessment plan Patient is a pleasant 53-year-old male with substantially improved right foot dorsal burn. Okay to discontinue Silvadene return to activities of normal daily living. He should come in for once annual diabetic foot exam therefore can follow-up next fall. AUTHENTICATED BY ALPHONSO LEAHY JR., ON 12/13/2023 15:43:[address] [place], [place] [id number] History of Present illness Narrative* Alphonso Leahy Jr., DP -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 Ulcer of right foot, unspecified ulcer stage (HCC) - Ambulatory referral to Podiatry; Future Will refer to podiatry for further management Type 2 diabetes mellitus without complication, without long-term current use of insulin ([facility]) He is going to check with insurance about insulin coverage and we can adjust for him until he sees endocrinology My ongoing relationship with Maxwell Sandhu requires continued responsibility and cognitive effort of being the focal point for all services related to chronic condition(s). Curtis Hernandez M.D. For any new medications prescribed today, patient was educated about indications for the medication, how to take the medication and potential side effects of the medications. AUTHENTICATED BY CURTIS HERNANDEZ, ON 11/10/2023 23:20:03[facility] [id number] History of Present illness Narrative* Curtis Hernandez MD - 11/10/2023 11:13 PM EDT Images from the original note were not included. Subjective Patient ID: Maxwell Sandhu is a 53 y.o. male. Patient here for follow-up of right foot lesion was burned at home by hot potato and oil ended up in urgent care and ER was treated with antibiotics and seems to be improving but was told to follow-up He has been having some difficulty with his diabetes getting his insulin states it is too expensive He has upcoming appointment with endocrinology He did have follow-up with neurology at [facility] and they felt lesion on his scans or artifact not stroke and that his symptoms are more consistent with seizure he has an appointment upcoming with [facility] neurology The following portions of the patient's history were reviewed and updated as appropriate: allergies, current medications, past family history, past medical history, past social history, past surgicalhistory, and problem list. Review of Systems Constitutional: Negative for fever. Respiratory: Negative for shortness of breath. Cardiovascular: Negative for palpitations. Gastrointestinal: Negative for diarrhea, nausea and vomiting. Neurological: Negative for weakness and headaches. Objective Physical Exam Constitutional: General: He is not in acute distress. Appearance: He is obese. Cardiovascular: Rate and Rhythm: Normal rate and regular rhythm. Heart sounds: No murmur heard. No friction rub. No gallop. Skin: Comments: Right foot with mild erythema 3 x 4 cm eschar with no purulence no drainage no tenderness Neurological: Mental Status: He is alert. Assessment/Plan: Diagnoses and all orders for this visit: Ulcer of right foot, unspecified ulcer stage ([facility]) - Ambulatory referral to Podiatry; Future Will refer to podiatry for further management Type 2 diabetes mellitus without complication, without long-term current use of insulin (HCC) He is going to check with insurance about insulin coverage and we can adjust for him until he sees endocrinology My ongoing relationship with Maxwell Sandhu requires continued responsibility and cognitive effortof being the focal point for all services related to chronic condition(s). Curtis Hernandez M.D. For any new medications prescribed today, patient was educated about indications for the medication, how to take the medication and potential side effects of the medications. documented in this [id number] NoteHMS DISCHARGE SUMMARY -- [facility] Maxwell Sandhu Admitted: 11/03/2023 Discharge Date: 11/05/23 PCP Handoff Recommended Outpatient Testing None Results Pending At Discharge None Clinical Summary Maxwell Sandhu is a 53 y.o. male patient of Curtis Hernandez MD with history of uncontrolled diabetes, depression, gout, hypertension, hyperlipidemia, hypothyroidism, and neuropathy who presented to [facility] on 11/03/2023 with central vision loss in the left eye. The patient reports he started to notice central left eye vision loss described as seeing through a brush streak. It started about 12 hours prior to presentation. In the ED, had a globe ultrasound not done by Dr. Keating and it did not show vitreous hemorrhage or retinal detachment. Admitted for further management. Left eye central vision loss Seen and examined Clinically stable C/o blurred vision No UE or LE weakness CT brain/ CTA Neck No acute intracranial process. No large vessel occlusion. No significant intracranial stenosis. No aneurysm. Dural venous sinuses are patent. Common carotids and internal carotids show no significant stenosis or dissection. The left vertebral artery shows no dissection or significant stenosis. There is severe stenosis in the proximal right V1, secondary to either a soft plaque or mural thrombus. Aspirin daily Lipitor daily Neurology was consulted Plan to continue with aspirin and lipid EEG as outpatient Continue with Keppra twice daily. Ophthalmology outpatient follow-up Seizure disorder Continue Keppra Elevated troponin likely demand ischemia Troponin 31 and trended down. No chest pain. EKG with no ischemic changes. Diabetes Continue Lantus and Januvia Sliding scale insulin Hypertension Hyperlipidemia Continue losartan, nifedipine and Lipitor Right foot cellulitis Improving Continue with cefazolin Follow-up as outpatient with podiatry Discharge Medications Discharge Medications New Medications Details cephALEXin 500 MG capsule Commonly known as: KEFLEX Take 1 (one) capsule (500 mg total) by mouth 3 (three) times a day . Quantity: 21 capsule Medications To Continue Details aspirin 81 MG EC tablet Take 1 (one) tablet (81 mg total) by mouth daily . atorvastatin 40 MG tablet Commonly known as: LIPITOR Take 1 (one) tablet (40 mg total) by mouth daily . Quantity: 30 tablet insulin glargine 100 unit/mL (3 mL) Inpn Commonly known as: LANTUS SOLOSTAR/BASAGLAR KWIKPEN Inject 22 (twenty two) Units under the skin nightly . Quantity: 9 mL levETIRAcetam 500 MG tablet Commonly known as: KEPPRA Take 1 (one) tablet (500 mg total) by mouth 2 (two) times a day . losartan 50 MG tablet Commonly known as: COZAAR Take 1 (one) tablet (50 mg total) by mouth daily . Quantity: 30 tablet NIFEdipine 30 MG 24 hr tablet Commonly known as: ADALAT CC Take 1 (one) tablet (30 mg total) by mouth daily . Quantity: 30 tablet sitagliptin 50 MG tablet Commonly known as: JANUVIA Take 1 (one) tablet (50 mg total) by mouth daily . Quantity: 30 tablet Physician(s) Follow Up: Peggy Way CNP [address] [facility] [id number] Follow up in 4 week(s) [facility] [address] [facility] [address] Follow up in 1 day(s) As soon as possible within 1 to 2 days. Condition at Discharge: Stable Disposition: Home I reviewed discharge recommendations with the patient in person. Patient instructions, including activity, were given to the patient/family at discharge. On day of discharge I saw Maxwell Sandhu and spent: > 30 minutes on discharge. Completed by: Jorge Luis Donohue MD on 11/05/23, 9:04 AM AUTHENTICATED BY JORGE LUIS DONOHUE, ON 11/05/2023 09:05:[address] [place] [address] 11-04-2023 NoteProgress note -- [facility] Patient Name: Maxwell Sandhu : 1970 MR #: [id number] Admit Date: 11/03/2023 Physicians: Curtis Hernandez MD (Family); No ref. provider found (Referring) Maxwell Sandhu is a 53 y.o. male patient of Curtis Hernandez MD with history of uncontrolled diabetes, depression, gout, hypertension, hyperlipidemia, hypothyroidism, and neuropathy who presented to [facility] on 11/03/2023 with central vision loss in the left eye. The patient reports he started to notice central left eye vision loss described as seeing through a brush streak. It started about 12 hours prior to presentation. In the ED, had a globe ultrasound not done by Dr. Keating and it did not show vitreous hemorrhage or retinal detachment. Admitted for further management. Left eye central vision loss Seen and examined Clinically stable C/o blurred vision No UE or LE weakness CT brain/ CTA Neck No acute intracranial process. No large vessel occlusion. No significant intracranial stenosis. No aneurysm. Dural venous sinuses are patent. Common carotids and internal carotids show no significant stenosis or dissection. The left vertebral artery shows no dissection or significant stenosis. There is severe stenosis in the proximal right V1, secondary to either a soft plaque or mural thrombus. Aspirin daily Lipitor daily Neurology was consulted Seizure disorder Continue Keppra Elevated troponin likely demand ischemia Troponin 31 and trended down. No chest pain. EKG with no ischemic changes. Diabetes Continue Lantus and Januvia Sliding scale insulin Hypertension Hyperlipidemia Continue losartan, nifedipine and Lipitor Right foot cellulitis Improving Continue with cefazolin Follow-up as outpatient with podiatry Residence prior to admission: house or apartment Was patient transferred from outlying hospital or ED no Quality Measures DVT Prophylaxis: lovenox Holder Catheter: absent Medication Reconciliation: Verified Admitted with these risk variables:None. Please see assessment and plan for further details. Estimated Date of Discharge less than 2 midnights Code Status full unverified Chief Complaint left eye central vision loss Home Medications Home medications were reviewed. Review Of Systems All relevant systems have been reviewed and are negative except as noted in HPI or below Physical Examination BP (!) 148/79 Pulse 66 Temp 97.9 degrees F (36.6 degrees C) (Oral) Resp 18 Ht 5' 9 Wt (!) 140.4 kg (309 lb 8.4 oz) SpO2 94% BMI 45.71 kg/m General Appearance: alert; well appearing; in no acute distress HEENT: Head- normocephalic; Eyes- EOMI, sclera anicteric; Cardiovascular: regular rate and rhythm; normal S1, S2; no murmurs, rubs, clicks or gallops; peripheral edema right foot erythema and edema Respiratory: lungs clear to auscultation; without wheezes, rales or rhonchi; on room air Abdomen: soft, non-tender, non-distended Neurological: oriented x 3; normal speech; no focal findings or movement disorder noted Musculoskeletal: no significant deformity or tenderness to palpation Skin: normal coloration AUTHENTICATED BY JORGE LUIS DONOHUE ON 11/04/2023 11:42:[address] [place] [address] 11-03-2023 NoteHMS HISTORY AND PHYSICAL -- [facility] Patient Name: Maxwell Sandhu : 1970 MR #: [id number] Admit Date: 11/03/2023 Physicians: Curtis Hernandez MD (Family); No ref. provider found (Referring) Maxwell Sandhu is a 53 y.o. male patient of Curtis Hernandez MD with history of uncontrolled diabetes, depression, gout, hypertension, hyperlipidemia, hypothyroidism, and neuropathy who presented to [facility] on 11/03/2023 with central vision loss in the left eye. The patient reports he started to notice central left eye vision loss described as seeing through a brush streak. It started about 12 hours prior to presentation. In the ED, had a globe ultrasound not done by Dr. Keating and it did not show vitreous hemorrhage or retinal detachment. Admitted for further management. Left eye central vision loss Described as seeing through a blood streak in his central left eye vision. Started about 12 hours prior to presentation. CTA head and neck reviewed and showed no evidence of large vessel occlusion or acute process. Showed severe stenosis in the proximal right V1 secondary to either soft plaque or mural thrombus. The ED physician discussed with the stroke teleneurologist who noted that these findings do not correlate with the symptoms. The stroke neurologist recommended admission for echo and evaluation for A-fib. Left globe ultrasound done by the ED physician did not show evidence of vitreous hemorrhage or retinal detachment. Sed rate elevated but the patient denies headache or temporal tenderness. GCA is unlikely. Obtain echocardiogram with bubble study to rule out cardiac embolic source Continue aspirin and Lipitor Will need event monitor on discharge to rule out atrial fibrillation Will need outpatient follow-up with ophthalmology. He is overdue for his diabetic eye exam. Consult neurology Check A1c and lipid panel Seizure disorder Was recently admitted to [facility] with concern of TIA versus seizure disorder and reports having witnessed seizure over there. Continue Keppra Elevated troponin likely demand ischemia Troponin 31 and trended down. No chest pain. EKG with no ischemic changes. Diabetes Continue Lantus and Januvia Sliding scale insulin Hypertension Hyperlipidemia Continue losartan, nifedipine and Lipitor Right foot cellulitis Reports dropping potato on his right foot few days ago. Has been taking antibiotics and he noted some improvement. Will start cefazolin while he is in the hospital. X-ray of the right foot with mild to moderate diffuse soft tissue swelling and no acute osseous injury. Residence prior to admission: house or apartment Was patient transferred from outlying hospital or ED no Quality Measures DVT Prophylaxis: lovenox Holder Catheter: absent Medication Reconciliation: Verified Admitted with these risk variables:None. Please see assessment and plan for further details. Estimated Date of Discharge less than 2 midnights Code Status full unverified Chief Complaint left eye central vision loss History of Present Illness Maxwell Sandhu is a 53 y.o. male patient of Curtis Hernandez MD with history of uncontrolled diabetes, depression, gout, hypertension, hyperlipidemia, hypothyroidism, and neuropathy who presented to [facility] on 11/03/2023 with central vision loss in the left eye. The patient describes his left eye vision as seeing through a blood streak in his central left eye vision. Started about 12 hours prior to presentation. CTA head and neck reviewed and showed no evidence of large vessel occlusion or acute process. Showed severe stenosis in the proximal right V1 secondary to either soft plaque or mural thrombus. The ED physician discussed with the stroke teleneurologist who noted that these findings do not correlate with the symptoms. The stroke neurologist recommended admission for echo and evaluation for A-fib. Left globe ultrasound done by the ED physician did not show evidence of vitreous hemorrhage or retinal detachment. Sed rate elevated but the patient denies headache or temporal tenderness. GCA is unlikely. Was recently admitted to [facility] with concern of TIA versus seizure disorder and reports having witnessed seizure over there. He is on Keppra. Troponin 31 and trended down. No chest pain. EKG with no ischemic changes. Reports dropping potato on his right foot few days ago. Has been taking antibiotics and he noted some improvement. X-ray of the right foot with mild to moderate diffuse soft tissue swelling and no acute osseous injury. I evaluated the patient in the ED. Denies other concerns. Discussed the plan. Discussed that retinal detachment is unlikely based on the ultrasound that was done in the ED. Discussed that we will admit him for further evaluation. All questions answered. Past Medical History Past Medical History: Diagnosis Date (more content not included)...[facility]09-18-2024 History of Present illness Narrative* Reji Curran MD - 10/25/2023 11:30 AM EDT [facility] Department of Neurology Section of Cerebrovascular Disease and Neurocritical Care New Patient Visit CHIEF COMPLAINT: Follow up after hospitalization HISTORY OF PRESENT ILLNESS: The patient is a 53 y.o. R-handed male with a history of DM, obesity who presents to the outpatientstroke clinic accompanied by daughter for follow-up after recent hospitalization. For details, please refer to the discharge summary dated 09/10/23. In summary, the patient had a possible L pontine butits artifact. A1c - 10.7 Consider changing - Crestor 20 mg Patient has gained 36 pounds recently BP at home 156 Is going to population geneticist Body mass index is 50.48 kg/m . PAST MEDICALHISTORY: Past Medical History: Diagnosis Date COPD (chronic obstructive pulmonary disease) Depression Diabetes mellitus Essential hypertension, benign GERD (gastroesophageal reflux disease) Hyperlipidemia Hypothyroidism Migraine Seizure PAST SURGICAL HISTORY: Past Surgical History: Procedure Laterality Date ARTHROSCOPY KNEE Left CERVICAL FUSION CURRENT MEDICATIONS: Current Outpatient Medications Medication Sig Dispense Refill Acetaminophen 325 MG tablet Take 2 tablets by mouth every 4 hours as needed for Moderate Pain. Alcohol Swabs Pads Use to cleanse fingertip before each blood glucose test. 200 Each 1 aspirin 81 MG Chew Tab chewable tablet Chew and swallow 1 tablet by mouth daily. 30 tablet 1 Atorvastatin 40 MG tablet Take 1 tablet by mouth at bedtime. 30 tablet 1 Blood Glucose Monitoring Suppl w/Device Kit Use as directed for blood sugar monitoring. 1 kit 0 glucagon 1 MG Kit injection Inject 1 mg intramuscularly once for 1 dose as needed. 1 kit 1 glucose blood test strips Strip strip Use BEFORE MEALS and at BEDTIME to test blood sugar. 150 strip 1 insulin glargine 100 UNIT/ML Solution Pen-injector injection Inject 18 Units under the skin daily every morning. No Titration 15 mL 1 Insulin Pen Needle (Pen [place]) 32G X 4 MM Misc Use new needle with each insulin injection. 100 Each 1 Lancets Misc Use BEFORE MEALS and at BEDTIME to test blood sugar. 150 Each 1 levETIRAcetam 500 MG tablet Take 1 tablet by mouth 2 times daily. 60 tablet 1 Losartan 50 MG tablet Take 1 tablet by mouth daily. 30 tablet 1 NIFEdipine 30 MG Tab SR 24 HR Take 1 tablet by mouth daily. 30 tablet 1 SITagliptin 50 MG tablet Take 1 tablet by mouth daily. 30 tablet 1 No current facility-administered medications for this visit. ALLERGIES: No Known Allergies SOCIAL HISTORY: Social History Tobacco Use Smoking status: Never Smokeless tobacco: Current Types: Chew Vaping Use Vaping status: Never Used Substance Use Topics Alcohol use: Yes Drug use: Never FAMILY HISTORY: No family history of early strokes PAIN ASSESSMENT (Patient reports Pain): no FALL ASSESSMENT: no FUNCTIONAL ASSESSMENT (Able to perform all ADLs): yes REVIEW OF SYSTEMS: No history of fever, chills, sweats, weight loss, fatigue, double vision, blurring, hearing loss, tinnitus, voice change, chest pain, dyspnea, palpitations, cough, nausea, vomiting, diarrhea, constipation, hematuria, dysuria, frequency, joint pain, joint swelling, rash, easy bruising, bleeding, headache, dizzy, LOC, focal motor weakness, sensory loss, gait problems, depression, or insomnia. PHYSICAL EXAM: Vitals: 10/25/23 1115 BP: 102/65 Pulse: 90 Resp: 16 Temp: 98 degrees F (36.7 degrees C) TempSrc: Temporal SpO2: 97% Weight: (!) 150.6 kg (332 lb) Height: 1.727 m (5' 8) Neurological examination: General: The patient appears nutritionally appropriate, well-groomed, and appears comfortable in noacute distress. Mental Status: The patient s mental status was normal including orientation, memory, attention span, concentration, and fund of knowledge. Language was intact. Cranial nerves: Fundi -optic discs clear bilaterally. Visual raymond full, pupils were equal and reactive to light, and extra-ocular motion was intact. Face motion and sensation were symmetric. Hearing was symmetric to bilateral finger rub. Palate was symmetric. Bilateral shoulder shrug was intact. Tongue was midline withnormal movement. There was no dysarthria. Motor: Normal strength and tone in all four extremities. No pronator drift. Bilateral fast finger movements were symmetric. . Sensation: Intact light touch bilaterally, no extinction. Coordination: Bilateral finger to nose was normal. There was no dysmetria. No dysdiadochokinesia. NIH STROKE SCALE 1a. Level of consciousness: 0 1b. Level of consciousness questions: 0 1c. Level of consciousness commands: 0 2. Best Gaze: 0 3. Visual: 0 4. Facial Palsy: 0 5a. Motor left arm: 0 5b. Motor right arm: 0 6a. Motor left le 6b. Motor right le 7. Limb Ataxia: 0 8. Sensory: 0 9. Best Language: 0 10. Dysarthria: 0 11. Extinction and Inattention: 0 TOTAL: 0 Modified Roberts Score: 4 - he can walk, but uses a wheelchair all the time due to his feet. Or can't stand for extend periods. DATA: HgBA1c: Lab Results Component Value Date HGBA1C 10.7 (H) 09/08/2023 Lipid panel: Lab Results Component Value Date CHOLESTEROL 146 09/08/2023 TRIG 132 09/08/2023 HDL 43 09/08/2023 LDLCALC 77 09/08/2023 RADIOLOGY REVIEW: I have reviewed radiology image(s) and report(s) of: MRI - likely artifact. ASSESSMENT: The patient is a 53 y.o. male with a history of HTN and DM who presents to outpatient stroke clinicfor follow-up after recent hospitalization. Neurological examination is nonfocal/shows. Neuroimaging shows MRI. 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 For secondary stroke prevention, the patient should continue daily anti-platelet medication and vascular risk factor modification per his PCP. The patient can follow-up with me on a prn basis. PLAN: The following are my recommendations: Order the following tests: none Anti-platelet medication: ASA Physical therapy/rehabilitation To reduce the risk of future ischemic stroke, the patient needs continued vascular risk factor modification. The following are the recommended guidelines*: LDL Goal < 70 mg/dL Smoking Cessation Diabetes management Blood pressure control should achieve <130/80 mmHg. BP management should aim to achieve detention control in a reasonable amount of time, taking into consideration the individual patient's requirements and characteristics. Weight Management: Goal for BMI is 18.5-24.9 kg/m2. Alcohol: No more than 2 drinks/day for men or 1 drink/day for non- women. Promote lifestyle modification: weight control, physical activity, moderation of alcohol intake, moderate sodium intake. Follow-up with me in prn *References: (1) Erin et al, Stroke 2011, 42:227-276; (2) Conway et al, Stroke 2006, 5285-0781;(3) Felicita et al, Stroke 2006; 37: 577-617; (4) Thalia Ponce. MARCO ANTONIO 2003, 289:7247-1926; (5) Conway, et al, Circulation 2001, 103-163; (6) Russell, et al, Stroke 1999, 1741-3244;(7) ATP III. See also ht tp:///nhlbi.nih.gov/guidelines/cholesterol/index.htm Reji Curran MD [facility] Instructions* Patient Instructions* Reji Curran MD - 10/25/2023 11:30 AM EDT If continue having muscle pain, consider changing your cholesterol medicine if you continue having muscle spasms. BP at home should be less than 130 [facility] NoteSubjective Patient ID: Maxwell Sandhu is a 53 y.o. male. Patient here for follow-up status posthospitalization States that he was having difficulty with strength and sensations with his arm and also with his leg was taken to local ER that day with certain if he was having possible stroke so was transferred to [facility] MRI of his brain and consultation with neurology still appears to be inconclusive on whether or not seizure disorder or stroke they felt more related to seizure disorder He was placed on Keppra states that he had similar issues for about 24 hours after discharge but has not had any issues since he has follow-up with neurology in about 3 weeks Since our last visit he stopped all of his medications and has not been treating any of his conditions He has longstanding history of failed cervical surgery states that he has been in a wheelchair since about the last time we saw him because he has increased difficulty with falls and weakness of his legs They did do an MRI on his cervical spine and his symptoms could be consistent with cervical radiculopathy His diabetes is under poor control they placed him on insulin while inpatient but then only prescribed basal insulin since he has been home his blood glucose levels have been elevated since he has been home does not appear to be following a diet closely His blood pressure has been under control and he does continue with his routine meds He was restarted on his cholesterol medications also The following portions of the patient's history were reviewed and updated as appropriate: allergies, current medications, past family history, past medical history, past social history, past surgical history, and problem list. Review of Systems Constitutional: Positive for fatigue. Negative for fever. Respiratory: Negative for shortness of breath. Cardiovascular: Negative for palpitations. Gastrointestinal: Negative for diarrhea, nausea and vomiting. Musculoskeletal: Positive for gait problem. Neurological: Positive for seizures and weakness. Negative for light-headedness. Objective Physical Exam Constitutional: General: He is not in acute distress. Appearance: He is obese. Cardiovascular: Rate and Rhythm: Normal rate and regular rhythm. Heart sounds: No murmur heard. No friction rub. No gallop. Pulmonary: Effort: Pulmonary effort is normal. Breath sounds: No wheezing or rales. Neurological: Mental Status: He is alert. Psychiatric: Attention and Perception: Attention normal. Mood and Affect: Mood normal. Behavior: Behavior is cooperative. Assessment/Plan: Diagnoses and all orders for this visit: Type 2 diabetes mellitus without complication, without long-term current use of insulin (HCC) - Ambulatory referral to Endocrinology; Future - Ambulatory Referral to Diabetes Care Team; Future - sitagliptin (JANUVIA) 50 MG tablet; Take 1 (one) tablet (50 mg total) by mouth daily . - insulin glargine (LANTUS SOLOSTAR/BASAGLAR KWIKPEN) 100 unit/mL (3 mL) InPn; Inject 22 (twenty two) Units under the skin nightly . At this point in time he has had chronic poor control on his diabetes and now underlying issues will refer to endocrinology for further assistance Essential hypertension, benign - NIFEdipine (ADALAT CC) 30 MG 24 hr tablet; Take 1 (one) tablet (30 mg total) by mouth daily . - losartan (COZAAR) 50 MG tablet; Take 1 (one) tablet (50 mg total) by mouth daily . Pure hypercholesterolemia - atorvastatin (LIPITOR) 40 MG tablet; Take 1 (one) tablet (40 mg total) by mouth daily . Seizure disorder (HCC) Needs to keep up with his appointment with neurology also will discuss with them if they feel that his weakness is related to seizure disorder or neck issues My ongoing relationship with Maxwell Sandhu requires continued responsibility and cognitive effort of being the focal point for all services related to chronic condition(s). Curtis Hernandez M.D. For any new medications prescribed today, patient was educated about indications for the medication, how to take the medication and potential side effects of the medications. AUTHENTICATED BY CURTIS HERNANDEZ, ON 10/08/2023 00:09:49[facility]09-01-2024 History of Present illness Narrative* Curtis Hernandez MD - 10/08/2023 12:02 AM EDT Images from the original note were not included. Subjective Patient ID: Maxwell Sandhu is a 53 y.o. male. Patient here for follow-up status posthospitalization States that he was having difficulty with strength and sensations with his arm and also with his leg was taken to local ER that day with certain if he was having possible stroke [facility] and consultation with neurology still appears to be inconclusive on whether or notseizure disorder or stroke they felt more related to seizure disorder He was placed on Keppra states that he had similar issues for about 24 hours after discharge but has not had any issues since he has follow-up with neurology in about 3 weeks Since our last visit he stopped all of his medications and has not been treating any of his conditions He has longstanding history of failed cervical surgery states that he has been in a wheelchair since about the last time we saw him because he has increased difficulty with falls and weakness of his legs They did do an MRI on his cervical spine and his symptoms could be consistent with cervical radiculopathy His diabetes is under poor control they placed him on insulin while inpatient but then only prescribed basal insulin since he has been home his blood glucose levels have been elevated since he has been home does not appear to be following a diet closely His blood pressure has been under control and he does continue with his routine meds He was restarted on his cholesterol medications also The following portions of the patient's history were reviewed and updated as appropriate: allergies, current medications, past family history, past medical history, past social history, past surgicalhistory, and problem list. Review of Systems Constitutional: Positive for fatigue. Negative for fever. Respiratory: Negative for shortness of breath. Cardiovascular: Negative for palpitations. Gastrointestinal: Negative for diarrhea, nausea and vomiting. Musculoskeletal: Positive for gait problem. Neurological: Positive for seizures and weakness. Negative for light-headedness. Objective Physical Exam Constitutional: General: He is not in acute distress. Appearance: He is obese. Cardiovascular: Rate and Rhythm: Normal rate and regular rhythm. Heart sounds: No murmur heard. No friction rub. No gallop. Pulmonary: Effort: Pulmonary effort is normal. Breath sounds: No wheezing or rales. Neurological: Mental Status: He is alert. Psychiatric: Attention and Perception: Attention normal. Mood and Affect: Mood normal. Behavior: Behavior is cooperative. Assessment/Plan: Diagnoses and all orders for this visit: Type 2 diabetes mellitus without complication, without long-term current use of insulin (HCC) - Ambulatory referral to Endocrinology; Future - Ambulatory Referral to Diabetes Care Team; Future - sitagliptin (JANUVIA) 50 MG tablet; Take 1 (one) tablet (50 mg total) by mouth daily . - insulin glargine (LANTUS SOLOSTAR/BASAGLAR KWIKPEN) 100 unit/mL (3 mL) InPn; Inject 22 (twenty two) Units under the skin nightly . At this point in time he has had chronic poor control on his diabetes and now underlying issues will refer to endocrinology for further assistance Essential hypertension, benign - NIFEdipine (ADALAT CC) 30 MG 24 hr tablet; Take 1 (one) tablet (30 mg total) by mouth daily . - losartan (COZAAR) 50 MG tablet; Take 1 (one) tablet (50 mg total) by mouth daily . Pure hypercholesterolemia - atorvastatin (LIPITOR) 40 MG tablet; Take 1 (one) tablet (40 mg total) by mouth daily . Seizure disorder (HCC) Needs to keep up with his appointment with neurology also will discuss with them if they feel that his weakness is related to seizure disorder or neck issues My ongoing relationship with Maxwell Rich Trin[place] requires continued responsibility and cognitive effortof being the focal point for all services related to chronic condition(s). Curtis Hernandez M.D. For any new medications prescribed today, patient was educated about indications for the medication, how to take the medication and potential side effects of the medications. documented in this [id number] Nurse Note* Nursing Notes - Brenna Billy RN - 09/11/2023 3:57 PM EDT Revieiwed AVS in detail with patient and answered all questions. Educated on importance of medication compliance and need to maintain follow up visits. Brenna Billy RN [facility]08-05-2024 Miscellaneous Notes* Nursing Notes - Brenna Billy RN - 09/11/2023 3:57 PM EDT Revieiwed AVS in detail with patient and answered all questions. Educated on importance of medication compliance and need to maintain follow up visits. Brenna Billy RN * Plan of Care - Odette Hinson OT - 09/11/2023 1:36 PM EDT Problem: OT - ADLs Goal: Bathing - Patient will perform full body bathing routine with independence while seated and standing for improved ability to complete self-care activities Outcome: Progressing Problem: OT - Transfers Goal: Transfers Toilet/ Bedside Commode - Patient will transfer to/from toilet/bedside commode withmodified independence for improved ability to safely complete ADLs. Outcome: Progressing * Plan of Care - Kamla Crystal RN - 09/11/2023 4:22 AM EDT Problem: Adult Inpatient Plan of Care Goal: Plan of Care Review Outcome: Progressing Goal: Patient-Specific Goal (Individualized) Outcome: Progressing Goal: Absence of Hospital-Acquired Illness or Injury Outcome: Progressing Goal: Optimal Comfort and Wellbeing Outcome: Progressing Goal: Readiness for Transition of Care Outcome: Progressing * Plan of Care - Kenny Crowe RN - 09/10/2023 9:15 AM EDT Problem: Adult Inpatient Plan of Care Goal: Plan of Care Review Outcome: Progressing Goal: Patient-Specific Goal (Individualized) Outcome: Progressing Goal: Absence of Hospital-Acquired Illness or Injury Outcome: Progressing Goal: Optimal Comfort and Wellbeing Outcome: Progressing Goal: Readiness for Transition of Care Outcome: Progressing * Nursing Notes - Kenny Crowe RN - 09/10/2023 8:58 AM EDT 0730: Paged Pat Quevedo MD - [facility] - [phone]: pt reporting n/t in lips, left arm, leftarm contracture. Speech clear, no facial droop. Please come assess. - AYUSH Cox [id number]. Dr. Quevedo to bedside promptly, pt assessed, s/s resolved. NO concern for stroke. Primary team notified of SBP 190's. Scheduled metoprolol and losartan given. 08: Primary team notified of return of s/s, SBP 200's. PRN hydralazine given. * Plan of Care - Kenny Crowe RN - 09/09/2023 7:45 AM EDT Problem: Adult Inpatient Plan of Care Goal: Plan of Care Review Outcome: Progressing Goal: Patient-Specific Goal (Individualized) Outcome: Progressing Goal: Absence of Hospital-Acquired Illness or Injury Outcome: Progressing Goal: Optimal Comfort and Wellbeing Outcome: Progressing Goal: Readiness for Transition of Care Outcome: Progressing * Nursing Notes - Opal Houston RN - 09/09/2023 12:27 AM EDT 2342 Patient's symptoms started again, MD Arturo at bedside. BP: 200/91, gave PRN hydralazine says Neuro Vas notes says goal BP in under 220 and we will continue to monitor. Patient's symptoms are happening more frequently, but coming and going. * Nursing Notes - Opal Houston RN - 09/08/2023 11:20 PM EDT Paged to MD Arturo [phone] - [place] Pt woke up with L sided weakness and tingling, mouth tingling, L hand sarika. Happened earlierin MRI. otherwise, pt asymptomatic. this floor does not do NIH score, please come assess. AYUSH Joseph [phone] No response, but symptoms have resolved. * Nursing Notes - Shavon Johnston RN - 09/08/2023 3:02 PM EDT Pt to floor from ED. On admission to S, from ED a dual RN initial assessment of skin condition was performed by Shavon Johnston RN and Gallo PEACOCK Skin Assessment: Skin within defined limits:Yes Pt has some moisture to his groin area that he states is from urinating in the ED and missing the urinal. Otherwise all skin intact. LDA Added:No 1530 Family at bedside. Pt aware NPO and awaiting more info on the plan of care. BP elevated 185/90 uponadmission and medicated with PRN Hydralazine. Will recheck and continue to monitor. AYUSH Humphrey RN Recheck is 184/100 Thomas Cummings NURSE PRACTITIONER ADULT is aware. New orders obtained. To start Oral medication assist with BP. Shavon Johnston RN 4:50 PM 09/08/2023 * Plan of Care - Christopher Hernandez APRN-INSERTING PRESS OPERATOR - 09/08/2023 11:36 AM EDT Neurovascular update: 53 y.o. male with PMH significant for HTN, DM, and HLD off meds for 2 years who presented on 09/07/2023 with intermittent left sided numbness and tingling and found to have pneumoperitoneum.. NIHSS 1 for dysarthria. LKW: 09/06 1130 am. Numbness, tingling of lip, left upper extremity 1 week ago lasted for few minutes. NIHSS on telestroke 0. OSH CTH demonstrated no acute findings. CTA demonstrated no acute findings. Patient was seen and examined with stroke attending Dr. 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 Recommendations: -Recommend a repeat MRI brain with thin slices through brain stem (Ordered) -MRI C spine (ordered) -Aspirin 81 mg if and when otherwise safe medically -[place] team will follow up on MRIs This plan was discussed with stroke attending Dr. Alford and has been communicated to the primary team. Please call with any questions. JUAN FRANCISCO Bear 09/08/2023 11:50 AM documented in [facility] Consult note* SARI Fuller - 09/11/2023 3:13 PM EDT GENERAL INTERNAL MEDICINE CONSULT Patient: Maxwell Sandhu, 1970, [id number] Physician: SARI Fuller, Attending Physician, Pager #[phone] Date of face to face patient encounter: 09/11/2023 Consulting Physician: Chencho Perry MD IMPRESSION/PLAN Principal Problem: Pneumoperitoneum Hypertensive urgency: - no indication of end organ damage. Per Neurology suspect symptoms due to seizure, do not believe patient had CVA. No PRESS on MRI - goal normotensive per neurology. Will aim to drop BP by 25% today from 200 so goal for tomorrow AM 150 - continue losartan - started Procardia 30 - continue PRN hydralazine. Added PRN labetalol - patient has been off BP meds for 2 years. He does not recall what he was on prior. Increase Cozaar to 50 at DC. Close f/up with PCP for BP Episodic left side spasms, weakness, slurred speech: - being managed by Neurovascuar, uspect symptoms due to seizure, do not believe patient had CVA - started on Keppra DM2: - defer to Endocrine team. Patient will need teaching before discharge BROOKE: on CPAP currently. Does not have a machine at home Thank you for the consult. Please page Beeper Consult Pager: [phone] with questions. REASON FOR CONSULTATION BP management HISTORY OF PRESENT ILLNESS Maxwell Sandhu is a 53 y.o. male that has been admitted to [facility]. This is a 53 y.o male with PMH of HTN, DM2, gout, BROOKE who is admitted under ACS. He was transferredto OSH with pneumoperitoneum and symptoms of left side weakness and slurred speech. Initial MRI wasnegative. Repeat MRI with questionable tiny infarct in the chantel. Regarding his weakness he continues to have episodes that last a few minutes at a time and resolve spontaneously. He is awake during these episodes. His BP was significantly elevated and remains so. Up to 200s systolic currently. He denies any CP, SOB, dizziness or palpitations. He stopped taking his HTN meds two years ago. He denies any hx of CAD, CHF, CVA, CKD. Regarding his pneumoperitenium this was believed to be an incidental finding and no workup is planned by ACS. He is tolerating a diet and has no abdominal pain. MEDICAL HISTORY Past Medical History: Diagnosis Date COPD (chronic obstructive pulmonary disease) Depression Diabetes mellitus Essential hypertension, benign GERD (gastroesophageal reflux disease) Hyperlipidemia Hypothyroidism Migraine Seizure Past Surgical History: Procedure Laterality Date ARTHROSCOPY KNEE Left CERVICAL FUSION SOCIAL HISTORY Social History Tobacco Use Smoking status: Never Smokeless tobacco: Current Types: Chew Substance Use Topics Alcohol use: Yes Social History Substance and Sexual Activity Drug Use Never FAMILY HISTORY family history is not on file. MEDICATIONS None ALLERGIES No Known Allergies REVIEW OF SYSTEMS Constitutional (- fever, chills, weight changes) Eyes (negative for vision changes) ENT (- ringing, loss of hearing) Cardiovascular (no LE edema or leg pain with walking, denies PND, orthopnea) Respiratory (no cough, SOB) Gastrointestinal (no abd pain, constipation, diarrhea) Genitourinary (- dysuria, gross hematuria) Integumentary (no rash) Musculoskeletal (no joint deformity, joint pains) Psych: no depressed mood PHYSICAL EXAM Vitals: 09/11/23 1116 BP: 150/75 Pulse: 75 Resp: 16 Temp: 97.5 F (36.4 C) SpO2: 97% O2 Device: room air (09/11/23 111) Flow (L/min): 0 (09/09/232111) Gen: AGE@ male Alert, Awake, Oriented x 3, in NAD Eyes: PERRLA, EOMI, no icterus ENT: MMM, trachea midline Resp: lungs are clear to auscultation bilaterally, with normal respiratory effort Cardio: RRR, normal S1, S2, no M/R/G. No INNA. GI: Soft/Nontender/Non-distended, normoactive BS Psych: appropriate affect and cognition DATA REVIEW WBC/Hgb/Hct/Plts: 6.78/14.3/44.0/152 (09/10 109) Na/K+/Phos/Mg/Ca: 139/3.6/3.9/1.9/-- (09/10 109) Bun/Creat/Cl/CO2/Glucose: 12/0.61/104/25/172 (09/100-09/10 1221) Body mass index is 45.62 kg/m . Signed, SARI Fuller Beeper Consult Pager: [phone] [facility] Medicine [facility] Work Phone: [phone]) 212-377108-05-2024 Consult note* SARI Fuller - 09/11/2023 3:13 PM EDT GENERAL INTERNAL MEDICINE CONSULT Patient: Maxwell Sandhu, 1970, [id number] Physician: SARI Fuller, Attending Physician, Pager #[phone] Date of face to face patient encounter: 09/11/2023 Consulting Physician: Chencho Perry MD IMPRESSION/PLAN Principal Problem: Pneumoperitoneum Hypertensive urgency: - no indication of end organ damage. Per Neurology suspect symptoms due to seizure, do not believe patient had CVA. No PRESS on MRI - goal normotensive per neurology. Will aim to drop BP by 25% today from 200 so goal for tomorrow AM 150 - continue losartan - started Procardia 30 - continue PRN hydralazine. Added PRN labetalol - patient has been off BP meds for 2 years. He does not recall what he was on prior. Increase Cozaar to 50 at DC. Close f/up with PCP for BP Episodic left side spasms, weakness, slurred speech: - being managed by Neurovascuar, uspect symptoms due to seizure, do not believe patient had CVA - started on Keppra DM2: - defer to Endocrine team. Patient will need teaching before discharge BROOKE: on CPAP currently. Does not have a machine at home Thank you for the consult. Please page Beeper Consult Pager: [phone] with questions. REASON FOR CONSULTATION BP management HISTORY OF PRESENT ILLNESS Maxwell Sandhu is a 53 y.o. male that has been admitted to [facility]. This is a 53 y.o male with PMH of HTN, DM2, gout, BROOKE who is admitted under ACS. He was transferredto OSH with pneumoperitoneum and symptoms of left side weakness and slurred speech. Initial MRI wasnegative. Repeat MRI with questionable tiny infarct in the chantel. Regarding his weakness he continues to have episodes that last a few minutes at a time and resolve spontaneously. He is awake during these episodes. His BP was significantly elevated and remains so. Up to 200s systolic currently. He denies any CP, SOB, dizziness or palpitations. He stopped taking his HTN meds two years ago. He denies any hx of CAD, CHF, CVA, CKD. Regarding his pneumoperitenium this was believed to be an incidental finding and no workup is planned by ACS. He is tolerating a diet and has no abdominal pain. MEDICAL HISTORY Past Medical History: Diagnosis Date COPD (chronic obstructive pulmonary disease) Depression Diabetes mellitus Essential hypertension, benign GERD (gastroesophageal reflux disease) Hyperlipidemia Hypothyroidism Migraine Seizure Past Surgical History: Procedure Laterality Date ARTHROSCOPY KNEE Left CERVICAL FUSION SOCIAL HISTORY Social History Tobacco Use Smoking status: Never Smokeless tobacco: Current Types: Chew Substance Use Topics Alcohol use: Yes Social History Substance and Sexual Activity Drug Use Never FAMILY HISTORY family history is not on file. MEDICATIONS None ALLERGIES No Known Allergies REVIEW OF SYSTEMS Constitutional (- fever, chills, weight changes) Eyes (negative for vision changes) ENT (- ringing, loss of hearing) Cardiovascular (no LE edema or leg pain with walking, denies PND, orthopnea) Respiratory (no cough, SOB) Gastrointestinal (no abd pain, constipation, diarrhea) Genitourinary (- dysuria, gross hematuria) Integumentary (no rash) Musculoskeletal (no joint deformity, joint pains) Psych: no depressed mood PHYSICAL EXAM Vitals: 09/11/23 1116 BP: 150/75 Pulse: 75 Resp: 16 Temp: 97.5 F (36.4 C) SpO2: 97% O2 Device: room air (09/11/23 1116) Flow (L/min): 0 (09/09/232111) Gen: AGE@ male Alert, Awake, Oriented x 3, in NAD Eyes: PERRLA, EOMI, no icterus ENT: MMM, trachea midline Resp: lungs are clear to auscultation bilaterally, with normal respiratory effort Cardio: RRR, normal S1, S2, no M/R/G. No INNA. GI: Soft/Nontender/Non-distended, normoactive BS Psych: appropriate affect and cognition DATA REVIEW WBC/Hgb/Hct/Plts: 6.78/14.3/44.0/152 (09/10 109) Na/K+/Phos/Mg/Ca: 139/3.6/3.9/1.9/-- (09/10 109) Bun/Creat/Cl/CO2/Glucose: 12/0.61/104/25/172 (09/10 0110-09/10 1221) Body mass index is 45.62 kg/m . Signed, SARI Fuller Beeper Consult Pager: [phone] Division of Hospital Medicine * Tello Patel MD - 09/10/2023 12:29 PM EDTAssociated Order(s): IP CONSULT TO GENERAL MEDICINE GENERAL INTERNAL MEDICINE CONSULT Patient: Maxwell Sandhu, 1970, [id number] Physician: Tello Patel MD, Attending Physician, Pager #[phone] Date of face to face patient encounter: 09/10/2023 Consulting Physician: Brock Goetz MD IMPRESSION/PLAN Principal Problem: Pneumoperitoneum Hypertensive urgency: - no indication of end organ damage. Per Neurology suspect symptoms due to seizure, do not believe patient had CVA. No PRESS on MRI - goal normotensive per neurology. Will aim to drop BP by 25% today from 200 so goal for tomorrow AM 150 - continue losartan - started Procardia 30 - continue PRN hydralazine. Added PRN labetalol - patient has been off BP meds for 2 years. He does not recall what he was on prior. Episodic left side spasms, weakness, slurred speech: - being managed by Neurovascuar, uspect symptoms due to seizure, do not believe patient had CVA - started on Keppra DM2: - defer to Endocrine team. Patient will need teaching before discharge BROOKE: on CPAP currently. Does not have a machine at home Thank you for the consult. Please page Beeper Consult Pager: [phone] with questions. REASON FOR CONSULTATION BP management HISTORY OF PRESENT ILLNESS Maxwell Sandhu is a 53 y.o. male that has been admitted to [facility]. This is a 53 y.o male with PMH of HTN, DM2, gout, BROOKE who is admitted under ACS. He was transferredto OSH with pneumoperitoneum and symptoms of left side weakness and slurred speech. Initial MRI wasnegative. Repeat MRI with questionable tiny infarct in the chantel. Regarding his weakness he continues to have episodes that last a few minutes at a time and resolve spontaneously. He is awake during these episodes. His BP was significantly elevated and remains so. Up to 200s systolic currently. He denies any CP, SOB, dizziness or palpitations. He stopped taking his HTN meds two years ago. He denies any hx of CAD, CHF, CVA, CKD. Regarding his pneumoperitenium this was believed to be an incidental finding and no workup is planned by ACS. He is tolerating a diet and has no abdominal pain. MEDICAL HISTORY Past Medical History: Diagnosis Date COPD (chronic obstructive pulmonary disease) Depression Diabetes mellitus Essential hypertension, benign GERD (gastroesophageal reflux disease) Hyperlipidemia Hypothyroidism Migraine Past Surgical History: Procedure Laterality Date ARTHROSCOPY KNEE Left CERVICAL FUSION SOCIAL HISTORY Social History Tobacco Use Smoking status: Never Smokeless tobacco: Current Types: Chew Substance Use Topics Alcohol use: Yes Social History Substance and Sexual Activity Drug Use Never FAMILY HISTORY family history is not on file. MEDICATIONS None ALLERGIES No Known Allergies REVIEW OF SYSTEMS Constitutional (- fever, chills, weight changes) Eyes (negative for vision changes) ENT (- ringing, loss of hearing) Cardiovascular (no LE edema or leg pain with walking, denies PND, orthopnea) Respiratory (no cough, SOB) Gastrointestinal (no abd pain, constipation, diarrhea) Genitourinary (- dysuria, gross hematuria) Integumentary (no rash) Musculoskeletal (no joint deformity, joint pains) Psych: no depressed mood PHYSICAL EXAM Vitals: 09/10/23 1142 BP: (!) 180/104 Pulse: Resp: Temp: SpO2: O2 Device: room air (09/10/23 1134) Flow (L/min): 0 (09/09/232111) Gen: AGE@ male Alert, Awake, Oriented x 3, in NAD Eyes: PERRLA, EOMI, no icterus ENT: MMM, trachea midline Resp: lungs are clear to auscultation bilaterally, with normal respiratory effort Cardio: RRR, normal S1, S2, no M/R/G. No INNA. GI: Soft/Nontender/Non-distended, normoactive BS Psych: appropriate affect and cognition DATA REVIEW WBC/Hgb/Hct/Plts: 7.72/14.7/45.0/141 (09/10 43) Na/K+/Phos/Mg/Ca: 139/4.1/4.2/2.0/-- (09/10 43) Bun/Creat/Cl/CO2/Glucose: 11/0.61/104/24/157 (09/10 43-09/09 733) Body mass index is 45.62 kg/m . Signed, Tello Patel MD Beeper Consult Pager: [phone] Division of Hospital Medicine * Missael Harkins MD - 09/09/2023 10:55 AM EDTAssociated Order(s): IP CONSULT TO ENDOCRINOLOGY - DIABETES Images from the original note were not included. [facility] Inpatient Diabetes Consult - Team 2 *For provider neonatal surgeon, please use [facility]->[facility]-> Internal Medicine-> Endocrinology & Metabolism-> Team 2 Impression: Uncontrolled Type 2 Diabetes Mellitus (T2DM) admitted with stroke- like symptoms (facialnumbness and LUE paresis) related to hypertensive urgency (resolved after BP controlled with Cardene), incidental pneumoperitoneum on imaging without abdominal symptoms A1c on admission: 10.7% Diabetes Inpatient Plan: based on overall glucose trends would recommend the following Basal: Insulin glargine: 18 units daily Prandial: Insulin lispro: 1 unit per 10 gram carbs qachs & prn Correction: Insulin lispro: 1 unit(s) per every 50 mg/dL above 150 mg/dL qachs Diabetes Education: reviewed above treatment plan recommendations Diabetes Health Maintenance BP goal is < 140/90 Review vaccination history. Diabetes Discharge Planning: TBD Follow up needed: TBD Thank you for allowing us to participate in your patients care. If you have questions please use [facility]->[facility]-> Internal Medicine-> Endocrinology & Metabolism-> Team 2 to identify neonatal surgeon pager. We will follow glucose trends with you and make recommendations as indicated. Chief Complaint Patient presents with Hypertension CC: uncontrolled hyperglycemia Date of admission: 09/08/2023 Admission diagnosis: Pneumoperitoneum [K66.8] Cerebrovascular accident (CVA), unspecified mechanism [I63.9] History of Present Illness: Maxwell Sandhu is a 53 y.o. year old male with Type 2 Diabetes Mellitus (T2DM) diagnosed several years ago who is seen in consultation at the request of Brock Goetz MD for assistance with evaluation of hyperglycemia and to make treatment recommendations. He was interviewed at his bedside in [facility]. Per review of his chart and discussion with patient and his sister who was present at the bedside, he has a significant history of BROOKE, hypothyroidism (no longer on medications since 2021), T2DM (no longer taking medications since 2021) and GERD presenting initially with stroke-like symptoms (facial numbness and LUE paresis) related to hypertensive urgency (resolved after BP controlled with Cardene), though noted to have incidental pneumoperitoneum on CXR without abdominal symptoms In regard to his history of diabetes, he is not currently taking any medications for glycemic control as an outpatient. He reports that he stopped taking them about 18 months ago. He had been prescribed metformin (he had GI side effects with this) and insulin (he is unsure of what kind that he tookor how many injections he took a day). He was previously prescribed trulicity but this had been stopped secondary to GI side effects Current insulin orders: Prandial: 1 unit per 10 gram carbs Correction: 1 unit per 50 mg/dl above 150 mg/dl Insulin dosing over the last 24 hours: Regular: 6 units Lispro: 5 units Current Diet Orders Procedures DIET CARB CONTROLLED Standing Status: Standing Number of Occurrences: 1 Glucose Review: Diabetes History Lab Results Component Value Date HGBA1C 10.7 (H) 09/08/2023 Diagnosis (aprox date): several years ago Family History: sister, mother, grandmother Outpatient Clinic: PCP Prior regiments: metformin (had GI side effects), trulicity (had GI side effects), insulin (unsure of what kind that he took or how many injections he took a day) Date of most recent dilated eye exam: 2022 Tobacco/Nicotine: He reports that he has never smoked. His smokeless tobacco use includes chew. History of Pancreatitis: no History of GMI or UTI: no Home blood glucoses: not currently checking There is no immunization history on file for this patient. Social History Tobacco Use Smoking Status Never Smokeless Tobacco Current Types: Chew Social History Substance and Sexual Activity Alcohol Use Yes Past Medical History: Diagnosis Date COPD (chronic obstructive pulmonary disease) Depression Diabetes mellitus Essential hypertension, benign GERD (gastroesophageal reflux disease) Hyperlipidemia Hypothyroidism Migraine Past Surgical History: Procedure Laterality Date ARTHROSCOPY KNEE Left CERVICAL FUSION History reviewed. No pertinent family history. HOSPITAL MEDS: aspirin 81 mg Oral Daily enoxaparin 40 mg Subcutaneous Q12H insulin glargine 18 Units Subcutaneous Daily Insulin lispro Subcutaneous 4x daily w/meals, HS Metoprolol 25 mg Oral Q12H nicotine 1 patch Transdermal Q24H And VERIFY LINKED PATCH PLACEMENT Other Q12H Polyethylene glycol 17 g Oral Daily Senna 8.6 mg Oral Daily ALLERGIES: has No Known Allergies. INFUSIONS:The past family, medical, and social history were otherwise reviewed and documented in the electronic record system. ROS: Pertinent items are noted in the HPI. Constitutional: Pt denies confusion Skin: Negative for lesions HENT: Negative for sore throat Eyes: Negative for double vision Cardiovascular: Negative for palpitations Respiratory: Negative for SOB Gastrointestinal: Negative for nausea Physical Exam General/Constitutional: male, who looks his stated age of 53 y.o.. No acute distress. Vital Signs: BP (!) 176/98 (BP Location: Left arm, BP Position: Lying) Comment: RN notified. Provider aware, hydralazine to be given if SBP >180 Pulse 68 Temp 97.7 F (36.5 C) (Axillary) Resp 16 Ht 1.727m (5' 8) Wt (!) 136.1 kg (300 lb 0.7 oz) SpO2 98% BMI 45.62 kg/m Smoking Status Never , Wt Readings from Last 3 Encounters: 09/09/23 (!) 136.1 kg (300 lb 0.7 oz) Body mass index is 45.62 kg/m . O2 Sat (%): [93 %-98 %] 98 % O2 Device: Nocturnal CPAP/BIPAP Flow (L/min): [0-3] 3 Head: Normocephalic and atraumatic. Eyes: Sclerae and conjunctiva are clear. Neck: Supple Pulmonary/Chest: Normal respiratory effort. Abdominal: Non-distended Neurological: Conscious, alert and oriented. Skin: Fingernails are intact Psychiatric: Appropriate mood and affect for their clinical situation. Procedure / Imaging / Lab Data: Pertinent procedure/imaging/lab data was reviewed: Lab Results Component Value Date HGBA1C 10.7 (H) 09/08/2023 Lab Results Component Value Date CHOLESTEROL 146 09/08/2023 TRIG 132 09/08/2023 HDL 43 09/08/2023 LDLCALC 77 09/08/2023 Lab Results Component Value Date SODIUM 138 09/09/2023 POTASSIUM 3.9 09/09/2023 CHLORIDE 104 09/09/2023 CO2 22 09/09/2023 BUN 7 09/09/2023 CREATSERUM 0.51 (L) 09/09/2023 GLUCOSE 178 (H) 09/09/2023 No results found for: SPGRVTYUR, SPECGRAVUR, GLUCUR, GLUCOSEURINE, BILIRUBINURI, KETONESURINE, BLOODURINE, PHURINE, NITRITEURINE, NITRITESURIN, LEUKOCESTUR, WBCURINE, RBCURINE, BACTERIAURIN No results found for: TSH, QII00SBA, SEO33AUL, TSHBASELINE, TSHULTRASEN, T3FREE, E1CGUZWGB, W4ZLOWP, H0WKOIMO, T4FREE, TPOAB No results found for: CREATURINE, MICROALBUMIN, MICALBCREAT Lab Results Component Value Date ALT 9 (L) 09/08/2023 No results found for: PREALBUMIN FIB-4 Calculation: 1.7 at 09/09/2023 12:06 AM Calculated from: SGOT/AST: 15 U/L at 09/08/2023 12:41 AM SGPT/ALT: 9 U/L at 09/08/2023 12:41 AM Platelets: 156 K/uL at 09/09/2023 12:06 AM Age: 53 years ECHO: Results for orders placed during the hospital encounter of 09/08/23 ECHOCARDIOGRAM 09/08/2023 (Final) Interpretation Summary No prior study at this institution for comparison. Left Ventricle: Chamber size is normal. Increased wall thickness. Concentric hypertrophy. Normal global systolic function. Regional wall motion is normal. Ejection fraction is normal (65 - 70%). Diastolic function could not be determined. Right Ventricle: Chamber size is enlarged. Systolic function is normal. Septum: The atrial septum is normal, no evidence of astpa-vo-wwul shunt by saline contrast. No hemodynamically signifcant valvular disease. Pulmonary artery systolic pressure (PASP) is unable to be estimated. Poor tricuspid regurgitation jet may not accurately reflect right ventricular systolic pressure. No pericardial effusion. CATH: No results found for this or any previous visit from the past 3650 days. No results found for: [id number] No results found for: [id number] documented in this [facility]OS[facility] Plan of care note* Plan of Care - Odette Hinson OT - 09/11/2023 1:36 PM EDT Problem: OT - ADLs Goal: Bathing - Patient will perform full body bathing routine with independence while seated and standing for improved ability to complete self-care activities Outcome: Progressing Problem: OT - Transfers Goal: Transfers Toilet/ Bedside Commode - Patient will transfer to/from toilet/bedside commode withmodified independence for improved ability to safely complete ADLs. Outcome: Progressing [facility] History of Present illness Narrative* ERICK Mooney - 09/11/2023 12:30 PM EDT Final Discharge Planning and Transportation Final Discharge Planning Discharge Disposition: Home Additional Community Agency Name(s): no Plan: Patient will discharge home with transportation from family. He will have orders for outpatient therapy. His medications were sent to [facility] pharmacy. Follow up appointment information is listed on the AVS. Patient/Family In Agreement With Plan: yes Norma SUAREZ, ONLINE MEDIA DIRECTOR Medical Social Work * ERICK Mooney - 09/11/2023 10:37 AM EDT Discharge Planning Patient Assessment Admission Assessment Patient Assessment Completed: Initial Anticipated discharge disposition: Home Reason for Admission: pneumoperitoneum Is the patient able to participate in the assessment?: Yes Demographics Verified and Updated: Yes Has the patient been admitted to any hospital in the last 30 days?: No Advanced Care Planning Has the patient completed Advance Directives?: Not Completed Referral to Social Work for Advance Care Planning? : Patient Declines Legal Next of Kin Does the patient have a Guardian?: No Spouse: No Adult Child(bolivar), List All Adult Children: Yes Name and Contact information: Nisreen Trinidad [phone] Would you like to add additional adult children?: No Parent(s) - List All Living Parents: No Adult Sibling(s), List All Adult Siblings: Yes Name and Contact information: Ani Trinidad [phone] Referral to Social Work to Identify Legal Next of Kin?: No Reviewed and Updated in Demographics? : Yes Outpatient Providers Does patient have a primary care physician? : Yes When was the patient's last PCP visit?: > one year Does the patient follow any specialists?: Yes Reviewed and updated Care Team?: Yes Patient Care Team: Curtis Hernandez MD as PCP - General (Family Medicine) Environment/Caregivers Is the patient from a facility or long-term?: No Patient lives with: Alone Living Environment: House How many steps does the patient have to navigate to enter or inside the home? : 10 Does the patient have a first floor set-up with bed and bathroom?: Yes Patient Caregiving Responsibilities: Self Patient-identified caregiver/support network: Family Who does the patient identify as a teachable caregiver(s)?: Child(bolivar) - Independent Services Does the patient use a home health or hospice agency?: No Does patient use DME? : wheelchair, walker, tub bench/seat Does patient use medical supplies? : none Anticipated Changes Related to Illness/Injury? : No Initial ADLs Prior to Arrival What is the patient's baseline physical functioning prior to this acute illness?: independent What is the patient's baseline cognitive functioning prior to this acute illness?: independent Is the patient's baseline functioning changed by this acute illness? : No Concerns with patient being able to care for themselves at home? : No Are there therapy or specialists consults?: Yes Select consult type: PT, OT Does the patient's home require any home modifications for discharge? : No CM to recommend therapy or other consults? : No Medication Management Does the patient have prescription insurance coverage? : Yes Is the patient on Anticoagulation? : No No Pharmacies Listed Time Analysis Clerk Does the patient or enrollment representative express financial concerns? : No Employed?: Disabled Coping/Stress Concerns about patient s coping and stress?: No Concerns about patient s caregiver s coping and stress?: Unable to Assess Values and Beliefs Cultural or orthodox practices that may impact discharge planning and/or medical care?: No Initial Discharge Planning Anticipated discharge disposition: Home Transportation Available for Discharge: Family or Friend Anticipated DME: none Anticipated Services at Discharge: Outpatient follow up, Outpatient rehab services Patient Assessment Completed: Initial Expected Discharge Date: 09/11/2023 Discharge Planning Summary SW met with the patient to complete the IA. He lives alone in a house. He has a ride from family today around 3:00. Therapy is recommending outpatient PT and a wheelchair evaluation. Updated the teamto provide therapy orders. He bought himself a wheelchair last year. No additional home discharge needs identified. Care Management Plan No home discharge needs identified. Patient has all necessary DME at home. Norma SUAREZ, ONLINE MEDIA DIRECTOR Medical Social Work * Jessica Urena APRN-ZHANNA - 09/11/2023 9:56 AM EDT [facility] Inpatient Diabetes Consults - Progress Note- For provider neonatal surgeon: QGENDA : TEAM 2 Assessment Uncontrolled type 2 diabetes Admitted with stroke-like symptoms (facial numbness and LUE paresis) related to hypertensive urgency (resolved after BP controlled with Cardene), incidental pneumoperitoneum on imaging without abdominal symptoms Barriers to Diabetes Self-Care: none A1C on admission: 10.7% Risk: .None Needs very little insulin (36 units TDD) given weight (0.26 units/kg/day) indicating a low level ofinsulin resistance. A1C high on no medication and did not tolerate GLP-1 or Metformin due to GI side effects. Would therefore recommend SGLT-2 at discharge Plan Hospital Plan: Glucoses well controlled. Continue current regimen Basal: Insulin glargine: 18 units daily Prandial: Insulin lispro: 1 unit per 10 gram carbs qachs & prn Correction: Insulin lispro: 1 unit(s) per every 50 mg/dL above 150 mg/dL qachs Education: Discussed diet modifications with focus on carb restricted diet to <60 grams per meal We will review glucoses; however, primary team should continue to check blood glucoses daily and reach out to our service with urgent issues DIABETES DISCHARGE PLAN Please contact our team on day of discharge for definitive recs. QGENDA :TEAM 2 Tentative discharge plan: Jardiance 10mg daily (Please use the Diabetes Discharge Order Set: Diabetes Orders - for those patients discharged on INSULIN) - If orals or non-insulin injectables recommended, will need to order them outside of the Diabetes Orderset. Discharge Diet: Carb controlled <60 carbs/meal Patient Education: Your target blood sugar is 80-130 mg/dl fasting and under 180 mg/dl nonfasting. Patient needs new insulin scripts at discharge: Yes needs SGLT-2 script oral Diabetes Supplies: Glucose monitoring supplies for ONCE OR TWICE daily: Glucose test strips: dispense 100 with 1 refill - Patient prefers any brand or substitute brand covered by insurance, Lancets: dispense 100 with 1refill, and alcohol swabs: dispense 100 with 1 refill The patient will need script for new glucometer: yes: Patient prefers any brand or substitute brandcovered by insurance Follow up needed: PCP within 1- 2 weeks CC: hyperglycemia History of Present Illness: Maxwell Sandhu is a 53 y.o. year old male who is seen at the bedside. Cr WNL. Patient is eating [id number] carb/meal, no nausea. Glucoses well controlled on conservative basal bolus dosing. Current Diet Orders Procedures DIET CARB CONTROLLED Standing Status: Standing Number of Occurrences: 1 Current Regimen: Basal: Insulin glargine: 18 units daily Prandial: Insulin lispro: 1 unit per 10 gram carbs qachs & prn Correction: Insulin lispro: 1 unit(s) per every 50 mg/dL above 150 mg/dL qachs Daily Glucose Review: Date Daily glucose review TDD Basal Prandial/ Correction 09/10/2023 126/157, 181, 170, 138 36 18 18 09/11/2023 135/133 Review of Systems Diabetes: Negative for symptoms of hypoglycemia Respiratory: Negative for shortness of breath Gastrointestinal: Negative for abdominal pain or nausea All other systems negative. Physical Exam Constitutional: Well-developed, well-nourished, obese male in no acute distress. Pulmonary/Chest: Respirations even and unlabored on room air. Musculoskeletal: No acute abnormalities noted Neurological: Alert and interactive Psych: Cooperative Temp: [97.2 F (36.2 C)-97.8 F (36.6 C)] 97.5 F (36.4 C) Pulse (Heart Rate): [58-67] 67 Resp Rate: [16-18] 18 BP: (118-199)/(68-104) 141/68 O2 Sat (%): [94 %-100 %] 94 %Admission/Adult (Dosing) Weight: (!) 136.1 kg (300 lb 0.7 oz) Most recent entered Weight: (!) 136.1 kg (300 lb 0.7 oz) Body mass index is 45.62 kg/m . Background History Maxwell Sandhu is a 53 y.o. year old male with Type 2 Diabetes Mellitus (T2DM) diagnosed several years ago who is seen in consultation at the request of Brock Goetz MD for assistance with evaluation of hyperglycemia and to make treatment recommendations. He was interviewed at his bedside in [facility]. Diabetes History: Type of Diabetes: Type 2 Diabetes Mellitus (T2DM) Date of diagnosis: 2004 Outpatient physician: PCP Diabetes Complications: none Date of most recent dilated eye exam: > 2 years DKA occurrences: None Home blood glucoses: He is not checking glucose at home Home diabetes medications: Not taking medication for DM currently Previously taking Metformin stopped for GI; Trulicity stopped for GI; insulin stopped for unknown reasons Recent A1c: Lab Results Component Value Date HGBA1C 10.7 (H) 09/08/2023 Lab Results Component Value Date CHOLESTEROL 146 09/08/2023 TRIG 132 09/08/2023 HDL 43 09/08/2023 LDLCALC 77 09/08/2023 Lab Results Component Value Date SODIUM 139 09/11/2023 POTASSIUM 3.6 09/11/2023 CHLORIDE 104 09/11/2023 CO2 25 09/11/2023 BUN 12 09/11/2023 CREATSERUM 0.61 (L) 09/11/2023 GLUCOSE 133 (H) 09/11/2023 No results found for: CREATURINE, MICROALBUMIN, MICALBCREAT Lab Results Component Value Date ALT 9 (L) 09/08/2023 No results found for: PREALBUMIN Cardiac echo: EF = Results for orders placed during the hospital encounter of 09/08/23 ECHOCARDIOGRAM 09/08/2023 (Final) Interpretation Summary No prior study at this institution for comparison. Left Ventricle: Chamber size is normal. Increased wall thickness. Concentric hypertrophy. Normal global systolic function. Regional wall motion is normal. Ejection fraction is normal (65 - 70%). Diastolic function could not be determined. Right Ventricle: Chamber size is enlarged. Systolic function is normal. Septum: The atrial septum is normal, no evidence of [id number] shunt by saline contrast. No hemodynamically signifcant valvular disease. Pulmonary artery systolic pressure (PASP) is unable to be estimated. Poor tricuspid regurgitation jet may not accurately reflect right ventricular systolic pressure. No pericardial effusion. * Josie Hannah PT - 09/11/2023 9:24 AM EDT Physical Therapy Note Pt seen for PT eval. Full note to follow. Disch rec: home No DME needs Recommend assessment at clinic (Annette Kamara has one if pt is local) Recommend outpatient PT RN recs at this time: supervision pivots to Josie Hannah PT, DPT License # [id number] Pager # [phone] Available Mon,Tues,Thurs, Fri 7am-5:30pm * JUAN FRANCISCO Bear - 09/11/2023 8:40 AM EDT Images from the original note were not included. NEUROVASCULAR CONSULT SERVICE IDENTIFYING INFORMATION Maxwell aSndhu MR# [id number] 09/11/2023 HISTORY OF PRESENT ILLNESS Maxwell Sandhu is a 53 y.o. male with a history of 53 y.o. male with PMH significant for HTN, DM, and HLD off meds for 2 years who presented on 09/07/2023 with intermittent left sided numbness and tingling and found to have pneumoperitoneum.. NIHSS 1 for dysarthria. LKW: 09/06 1130 am. Numbness, tingling of lip, left upper extremity 1 week ago lasted for few minutes. NIHSS on telestroke 0. OSH CTH demonstrated no acute findings. CTA demonstrated no acute findings. Paged by bedside RN for acute numbness in LUE, LLE, and lips with contracture of LUE. On assessment, pt states these symptoms started approximately 15-20 minutes prior to arrival. He states these aresimilar to the episodes he's had in the past. VITAL SIGNS Temp: [97.2 F (36.2 C)-97.8 F (36.6 C)] 97.5 F (36.4 C) Pulse (Heart Rate): [58-67] 67 Resp Rate: [16-18] 18 BP: (118-199)/(68-104) 141/68 O2 Sat (%): [94 %-100 %] 94 % Oxygen Therapy: Oxygen Therapy O2 Sat (%): 94 % O2 Device: room air Oxygen Concentration (%): 35 Ventilator Settings and Monitoring (Adult/Peds) Total Respiratory Rate: 11 Intake/Output: Intake/Output Summary (Last 24 hours) at 09/11/2023 0857 Last data filed at 09/11/2023 0756 Gross per 24 hour Intake 1362.99 ml Output 3550 ml Net -2187.01 ml PHYSICAL EXAM General Physical Exam General: NAD, lying comfortably in bed HENT: Normal oropharynx and mucosa. Normal external appearance of ears and nose. CV/Chest: Regular rate and rhythm Lungs: No audible wheezing. Normal work of breathing. No accessory muscle use Abdomen: Non distended, non tender Extremities: Warm and well perfused. No appreciable edema, cyanosis or deformity. Neurologic Examination Mental status/Cognition: alert; oriented to month and age; good attention; no apparent neglect Speech/language: fluent; comprehension intact; object naming intact; repetition intact Cranial nerves: CN II Visual raymond full to confrontation without visual extinction CN III,IV, PERRL. EOMI. CN V Facial sensation intact to light touch bilaterally in V1, V2, V3 CN VII Face, Smile, Eyebrow raise/closure symmetric. CN VIII Hearing grossly intact to voice CN IX & X Soft palate elevates symmetrically in the midline, no dysarthria CN XI Shoulder shrug with full strength CN XII Tongue protrudes midline Motor: Normal bulk and tone. All extremities antigravity without drift Sensation: Mild decrease in sensation in LUE and LLE Coordination/Complex Motor: - [id number]-sq-lvqf intact bilaterally without dysmetria NIHSS 09/11/2023 Provider NIH Stroke Scale NIH Interval (Provider): daily NIH Level of Conciousness (Provider): 0 NIH LOC Questions (Provider): 0 NIH LOC Commands (Provider): 0 NIH Best Gaze (Provider): 0 NIH Visual (Provider): 0 NIH Facial Palsy (Provider): 0 NIH Left Arm Motor (Provider): 0 NIH Right Arm Motor (Provider): 0 NIH Left Leg Motor (Provider): 0 NIH Right Leg Motor (Provider): 0 NIH Limb Ataxia (Provider): 0 NIH Sensory (Provider): 1 NIH Best Language (Provider): 0 NIH Dysarthria (Provider): 0 NIH Extinction and Inattention (Provider): 0 NIH Total Score (Provider): 1 MEDICATIONS aspirin 81 mg Oral Daily enoxaparin 40 mg Subcutaneous Q12H insulin glargine 18 Units Subcutaneous Daily Insulin lispro Subcutaneous 4x daily w/meals, HS levETIRAcetam 500 mg Oral Q12H Losartan 50 mg Oral Daily nicotine 1 patch Transdermal Q24H And VERIFY LINKED PATCH PLACEMENT Other Q12H NIFEdipine 30 mg Oral Daily Polyethylene glycol 17 g Oral Daily Senna 8.6 mg Oral Daily LABS/CULTURES Lab Results Component Value Date WBC 6.78 09/11/2023 HGB 14.3 09/11/2023 HCT 44.0 09/11/2023 PLATELET 152 09/11/2023 MCV 81.3 09/11/2023 Lab Results Component Value Date SODIUM 139 09/11/2023 POTASSIUM 3.6 09/11/2023 CHLORIDE 104 09/11/2023 CO2 25 09/11/2023 BUN 12 09/11/2023 CREATSERUM 0.61 (L) 09/11/2023 GLUCOSE 133 (H) 09/11/2023 Lab Results Component Value Date CHOLESTEROL 146 09/08/2023 TRIG 132 09/08/2023 HDL 43 09/08/2023 LDLCALC 77 09/08/2023 Lab Results Component Value Date HGBA1C 10.7 (H) 09/08/2023 Lab Results Component Value Date ALBUMIN 3.5 09/08/2023 , No results found for: CPK, TROP IMAGING/DIAGNOSTIC STUDIES MRI Brain with thin slices through brainstem 09/07 IMPRESSION: Potential focus of mild reduced diffusivity in the chantel, slightly right of midline, which could potentially represent an acute/subacute infarct versus artifact. No other potential acute abnormalities. MRI C-spine 09/07 IMPRESSION: Multilevel degenerative spondylosis and degenerative disc disease results in moderate to severe spinal canal stenosis at C2-3 and C3-4, with significant bilateral neuroforaminal stenoses as detailed above. C5-C6 myelomalacia. TTE: EF 65-70%, no PFO. LDL 77, A1c 10.7 ASSESSMENT AND PLAN Maxwell Sandhu is a 53 y.o. male with a history of 53 y.o. male with PMH significant for HTN, DM, and HLD off meds for 2 years who presented on 09/07/2023 with intermittent left sided numbness and tingling and found to have pneumoperitoneum. Neurovascular consulted for LUE/LLE numbness. MRI Brain repor ting possible pontine infarct, however, on review of imaging, appears to be artifact. MRI C-spine demonstrating significant cervical stenosis. Further description of episodes suggest possible focal seizures given episodic nature and LUE contracture. Recommendations -Keppra 500mg BID -Aspirin 81 mg daily -Lipitor 40 mg daily -NV follow up outpatient in 4-6 weeks , Amb referral placed Discussed with stroke attending Dr. Sarmiento. NV team will sign off. Please call with any questions. Signed, Christopher Hernandez APRN-INSERTING PRESS OPERATOR 09/11/2023 8:58 AM Associated attestation - Arabella Sarmiento MD - 09/11/2023 10:22 AM EDT I have seen and examined the patient with the team today. I have personally reviewed all the imaging studies, laboratory data and also reviewed the note. In addition I performed a physical examination; discussing the patient with the multi-disciplinary team and managing life sustaining therapies toprevent imminent clinical deterioration. I agree with the assessment and plan with the following additions : Lab Results Component Value Date LDLCALC 77 09/08/2023 Lab Results Component Value Date HGBA1C 10.7 (H) 09/08/2023 CBC: Lab Results Component Value Date WBC 6.78 09/11/2023 HGB 14.3 09/11/2023 HCT 44.0 09/11/2023 PLATELET 152 09/11/2023 MCV 81.3 09/11/2023 Chem 7: Lab Results Component Value Date SODIUM 139 09/11/2023 POTASSIUM 3.6 09/11/2023 CHLORIDE 104 09/11/2023 CO2 25 09/11/2023 GLUCOSE 133 (H) 09/11/2023 BUN 12 09/11/2023 CREATSERUM 0.61 (L) 09/11/2023 BUNCREARATIO 20 09/11/2023 OSMOLALITY 292 09/11/2023 GFR >90 09/11/2023 HCT: CTA: No LVO MRI: ? R pontine stroke ECHO: EF okay Neuro Exam: MS: AA OX3. Language: Intact speech and language. CN: 2-12 intact. Motor: 5/5 all over. Sensation: Intact Assessment: Maxwell Sandhu is a 53 y.o. male with a history of 53 y.o. male with PMH significant forHTN, DM, and HLD off meds for 2 years who presented on 09/07/2023 with intermittent left sided numbness and tingling and found to have pneumoperitoneum. Had a few such episodes that are transient. MRI suspicious for stroke, vs artifact. Suspect stroke (small vessel disease) vs seizures Plan: ASA Continue statin Keppra 500 mg BID PT/OT evaluation Risk factor modification and stroke education provided. DVT prophylaxis Arabella Sarmiento MD Vice President Marketing & Development Department of Neurology * Odette Hinson, OT - 09/11/2023 8:35 AM EDT Acute Occupational Therapy Evaluation Prior Gross Functional Mobility: with compensation, used device Current AM-PAC score(s): CURRENT AM-PAC Activity Raw Score: 22 Based on the above AM-PAC score(s) and OT clinical judgment, discharge destination recommendation is: Home with Outpatient Rehab Services (Follow up with OP OT and OP seating and positioning/ wheelchair clinic.) Barriers to discharge home: Patient needs assistance with ADLs, Patient needs assistance with IADLs(see note below) Mobility equipment available at home: manual wheelchair ADL equipment available at home: bedside commode, shower chair Equipment recommendations for discharge: none Current therapy frequency recommendation(s) in acute: 1 time a week Precautions and Weightbearing Status: OT Existing Precautions/Restrictions: fall No critical lines at this time Patient Safety Communication Prior to Visit: Nursing Subjective: I got myself a wheelchair because I didn't want to fall any longer. Pain: General Pain Documentation (Adult, OB, Peds) Presence of Pain: denies pain/discomfort Presence of Pain Score (Auto-calculated): 0 Home Setting Residence: ([facility]) Lives With: children (adult), grandchildren (daughter, granddaughtter, son in law) First floor setup: bedroom, tub shower Number of stairs to enter home: 10 Mobility Equipment Available: manual wheelchair ADL Equipment Available: bedside commode, shower chair Previous Level of Function Gross Functional Mobility: with compensation, used device Assistive Device: wheelchair Prior level ADL Overview: Needs assist Bathing: needs device and assist Toileting: needs device and assist Bed Mobility: independent Transfers: used device Stairs: independent Ambulation: modified independent with home Prior Level of Function Details: walking very short distances; falls- no falls in last 3 months IADL History IADLs: needs assist Objective/Observation: Vitals/Vitals Responses to Treatment: WFL O2 Device: room air Vision Screen Currently wearing corrective lenses: Yes Visual Impairments Observed?: No Speech Speech: no gross deficits noted Hearing Hearing: no gross deficits noted Cognition Overall Cognitive Status: Within Functional Limits Arousal/Alertness: Appropriate responses to stimuli Orientation Level: Oriented X4 Following Commands: Follows all commands and directions without difficulty Safety Judgment: Good awareness of safety precautions ADLs: ADL Anticipated Performance (ADLs not directly observed this session): Eating, Grooming, Toileting,Bathing Eating Assistance: Independent Grooming Assistance: Modified independent Bathing Assistance: Supervision UE Dressing Assistance: Independent UE Dressing Location: edge of bed UE Dressing Intervention/Details: thread UE's LE Dressing Assistance: Modified independent LE Dressing Location: edge of bed LE Dressing Intervention/Details: Increased time to reach modified position to complete Toilet Assistance: Supervision Extremity Assessments: RUE Assessment RUE Assessment: Within Functional Limits LUE Assessment LUE Assessment: Within Functional Limits Balance: Sitting Balance Static Sitting-Level of Assistance: Independent Dynamic Sitting-Level of Assistance: Independent Standing Balance Static Standing-Level of Assistance: Modified independent Dynamic Standing-Level of Assistance: Supervision Neuro: Sensation Overall Sensation: Intact Proprioception Proprioception: intact Gross Coordination Gross Coordination: bilat UE intact Fine Motor Coordination Additional Documentation: No Skin and Edema: Skin Integrity Skin Integrity Description: WFL Edema Edema: none noted Mobility Assessment: Rolling/Turning Mobility [place] Level: Rolling/Turning: modified independence Supine to Sit Mobility [place] Level: Supine->Sit: modified independence Transfer Assessment: Sit to Stand Transfer [place] Level: Sit->Stand: supervision Skilled Rationale: Verbal cues Stand to Sit Transfer [place] Level: Stand->Sit: supervision Assistive Device: Stand->Sit: armed chair Skilled Rationale: Verbal cues Bed-Chair Transfer [place] Level: Bed<->Chair: supervision Assistive Device: Bed<->Chair: armed chair Skilled Rationale: Verbal cues Skilled Intervention/Details: Bed<->Chair: flexed posture; holding onto wheelchair arms; steps to wheelchair Functional Mobility: Outcome Score(s): CURRENT [facility] Daily Activity Inpatient Short Form Putting on/Taking Off Lower Body Clothin - No Assistance Bathin - A Little Assistance Toiletin - A Little Assistance Putting on/Taking Off Upper Body Clothin - No Assistance Groomin - No Assistance Eatin - No Assistance CURRENT -[facility] Activity Raw Score: 22 CURRENT -[facility] Activity Functional Limitation/Modifier: 25.80% Currently Impaired in Daily Activity- CJ Interventions: Assessment & Plan: Patient was admitted for s/p L sided n/t, dysarthria, pneuomperitoneum and seen for therapy evaluation related to ADL deficits related to pain, weakness, balance. Exam findings include impairments in: balance, pain, ROM, transfers. These impairments contribute to occupational performance limitations including bathing, dressing, toileting, functional mobility, ADL transfers. Pt presenting with above listed deficits and continues to require skilled OT services to address stated goals. This date pt requiring supervision for functional transfers and mod I to supervision overall for most self care tasks. Limited this date by posture, balance, endurance. Will continue to monitor progress. The following factors impact the plan of care: about 2 years of pivoting to wheelchair/ limited mobility Patient will benefit from skilled occupational therapy to address these impairments, occupational performance limitations, and participation restrictions. Patient's rehab potential is: good. Planned Therapy Interventions (OT Eval): ADL retraining, IADL retraining, balance training, bed mobility training, transfer training, ROM (range of motion) Patient Instruction/Education this session: Learners: Patient Education provided: Role of this discipline, Positioning, Plan of care Teaching method: Audiovisual, Demonstration Learner response: States/Identifies/Teaches back, Applies knowledge Learning preferences: Auditory Learning considerations: No barriers/ready to learn Plan for next session: home safety Acute OT Goals Plan of Care by Odette Hinson OT at 09/11/2023 1:36 PM Version 1 of 1 Problem: OT - ADLs Goal: Bathing - Patient will perform full body bathing routine with independence while seated and standing for improved ability to complete self-care activities Outcome: Progressing Problem: OT - Transfers Goal: Transfers Toilet/ Bedside Commode - Patient will transfer to/from toilet/bedside commode withmodified independence for improved ability to safely complete ADLs. Outcome: Progressing OT treatment consisted of the following to work and progress towards the above goal(s): OT Evaluation and Treatment Time OT Evaluation (Moderate) Time Entry: 18 Evaluating Therapist: Odette Hinson OT Additional Details: OT Co-Eval/Treatment Information Co-evaluation/co-treatment performed?: Yes, simultaneous billable skilled care was necessary due tomedical complexity and functional deficits Other discipline: PT OT Evaluation Complexity Occupational Profile and Client History: Moderate - expanded history Assessment of Occupational Performance: Moderate (3-5 performance deficits) Clinical Decision/Performance Deficits: Moderate (detailed assessments w/several treatment options) Time In: 816 Time Out: 834 Total Visit Time: 18 minutes Total Treatment Time (skilled, billable minutes): 18 minutes PPE used during patient interaction: gloves Patient location at end of session: chair Alarms on at end of session: RN aware Needs in reach. Upon discontinuation of Acute Care Occupational Therapy Services or patient discharge from the hospital this note represents the current Occupational Therapy Discharge Summary. * Josie Hannah, PT - 09/11/2023 8:15 AM EDT Acute Physical Therapy Evaluation Prior Gross Functional Mobility: with compensation, used device Current AM-PAC score(s): CURRENT AM-PAC Mobility Raw Score: 16 Based on the above AM-PAC score(s) and PT clinical judgment, patient is a good candidate for discharge to Home with Outpatient Rehab Services Recommend assessment at [facility] (Annette Kamara has one if pt is local) Barriers to discharge home: None Mobility equipment available at home: manual wheelchair ADL equipment available at home: bedside commode, shower chair Equipment needed for discharge: none Current therapy frequency recommendation in acute: Therapy Frequency: 1 time a week Activity Recommendations for outside of rehab session: 09/10 supervision pivot transfer Precautions and Weightbearing Status: Existing Precautions/Restrictions: fall No critical lines at this time Patient Safety Communication Prior to Visit: Nursing Subjective: i feel back to my typical self Pain: General Pain Documentation (Adult, OB, Peds) Presence of Pain: denies pain/discomfort Presence of Pain Score (Auto-calculated): 0 Home Setting Residence: ([place]) Lives With: children (adult), grandchildren (daughter, granddaughtter, son in law) First floor setup: bedroom, tub shower Number of stairs to enter home: 10 Mobility Equipment Available: manual wheelchair ADL Equipment Available: bedside commode, shower chair Previous Level of Function Gross Functional Mobility: with compensation, used device Assistive Device: wheelchair Prior level ADL Overview: Needs assist Bathing: needs device and assist Toileting: needs device and assist Bed Mobility: independent Transfers: used device Stairs: independent Ambulation: modified independent with home Prior Level of Function Details: walking very short distances; falls- no falls in last 3 months Objective/Observation: Vitals/Vitals Responses to Treatment: Not assessed; no S/S of intolerance O2 Device: room air Cognition Overall Cognitive Status: Within Functional Limits Arousal/Alertness: Appropriate responses to stimuli Orientation Level: Oriented X4 Following Commands: Follows all commands and directions without difficulty Safety Judgment: Good awareness of safety precautions Vision Screen Visual Impairments Observed?: No Speech Speech: no gross deficits noted Hearing Hearing: no gross deficits noted Extremity Assessments: RLE Assessment RLE Assessment: PROM WFL, 2/5 MMT LLE Assessment LLE Assessment: PROM WFL, 2/5 MMT Sensation Overall Sensation: Intact Mobility Assessment: Supine to Sit Mobility [place] Level: Supine->Sit: modified independence Bed Features/Set-up: Supine->Sit: Head of bed elevated Balance: Sitting Balance Static Sitting-Level of Assistance: Independent Dynamic Sitting-Level of Assistance: Independent Standing Balance Static Standing-Level of Assistance: Supervision Dynamic Standing-Level of Assistance: Supervision Standing-Balance Support: (UE support on bed then to WC arms) Transfer Assessment: Sit to Stand Transfer [place] Level: Sit->Stand: supervision Assistive Device: Sit->Stand: (arms of WC/bedrails) Stand to Sit Transfer [place] Level: Stand->Sit: supervision Assistive Device: Stand->Sit: (arms of WC/bedrails) Bed-Chair Transfer [place] Level: Bed<->Chair: supervision Assistive Device: Bed<->Chair: (arms of WC/bedrails) Gait/Functional Mobility: Stairs: Outcome Score(s): [facility] Basic Mobility Inpatient Short Form Turning over in bed: 3 - A Little Assistance Moving from lying on back to sittin - A Little Assistance Moving to and from bed to chair: 3 - A Little Assistance Sitting/standing from chair: 3 - A Little Assistance Walk in hospital room: 2 - A Lot of Assistance Climbing 3-5 steps with a railin - A Lot of Assistance [facility] Mobility Raw Score: 16 [facility]RENT [facility] Mobility Functional Limitation: 54.16% Impaired in Basic Mobility Interventions: Assessment & Plan: Patient was admitted for Hypertensive urgency: - no indication of end organ damage. Per Neurology suspect symptoms due to seizure, do not believe patient had CVA. No PRESS on MRI and seen for therapy evaluation related to deconditioning; neuro changes at time of admit, eval andtreat. Exam findings include impairments in: Strength, Balance, Transfers, Gait/Locomotion, Aerobic capacity/endurance. These impairments contribute to functional limitations including Decreased functional mobility. Current clinical presentation is Stable - unchanging or predictable (Low). Patient history factors impacting Plan Of Care include none. Patient will benefit from skilled physical therapy to address these impairments, functional limitations, and participation restrictions and has good rehab potential to achieve therapy goals. Planned Therapy Interventions: balance training, bed mobility training, endurance, functional activity tolerance, gait training, strengthening, transfer training Patient Instruction/Education this session: Learners: Patient Education provided: Role of this discipline Teaching method: Verbal Education/Instruction Learner response: Applies knowledge Learning preferences: Auditory Learning considerations: No barriers/ready to learn Plan for next session: gait progression Acute PT Goals Notes from 09/11/2023 4:17 AM through 09/11/2023 4:17 PM Pt to amb 5 feet with supervision and LRD within 2 wks for safe progression to previous environment Pt to ascend/descend 10 stairs with bilat handrail and CGA within 2 wks for safe progression to previous environment PT treatment consisted of the following to progress towards the above goal(s): PT Evaluation and Treatment Time PT Evaluation (Low) Time Entry: 20 Evaluating Therapist: Josie Hannah PT Additional Details: PT Co-Eval/Treatment Information Co-evaluation/co-treatment performed?: Yes, simultaneous billable skilled care was necessary due tomedical complexity and functional deficits Other discipline: OT Rationale for need to co-eval/treat: (safety with initial mobility assessment r/t medical compexity) Evaluation Complexity Components History: Moderate (1-2 personal factors and/or comorbidities) Body Systems Review: Moderate (Addressing a total of 3 or more elements) Clinical Presentation: Stable - unchanging or predictable (Low) Clinical Decision Making: Low Time In: 0815 Time Out: 0835 Total Visit Time: 20 minutes Total Treatment Time (skilled, billable minutes): 20 minutes Patient location at end of session: () Alarms on at end of session: none, RN aware Needs in reach. Upon discontinuation of Acute Care Physical Therapy Services or patient discharge from the hospitalthis note represents the current Physical Therapy Discharge Summary. * Pam Mckinney PT - 09/10/2023 10:00 AM EDT Physical Therapy Attempt Note 09/10/2023 PT Therapy Completed: Attempted Attempted Reason: Patient is not medically optimized to tolerate therapy program (high BP) Pam Mckinney PT Time In: 1000 Time Out: 1000 Total Visit Time: 0 minutes Total Treatment Time (skilled, billable minutes): 0 minutes * Missael Harkins MD - 09/10/2023 9:32 AM EDT Images from the original note were not included. [facility] Inpatient Diabetes Consult - Team 2 *For provider neonatal surgeon, please use [facility]->[facility]-> Internal Medicine-> Endocrinology & Metabolism-> Team 2 Impression: Uncontrolled Type 2 Diabetes Mellitus (T2DM) admitted with stroke- like symptoms (facialnumbness and LUE paresis) related to hypertensive urgency (resolved after BP controlled with Cardene), incidental pneumoperitoneum on imaging without abdominal symptoms A1c on admission: 10.7% Diabetes Inpatient Plan: based on overall glucose trends would recommend the following Basal: Insulin glargine: 18 units daily Prandial: Insulin lispro: 1 unit per 10 gram carbs qachs & prn Correction: Insulin lispro: 1 unit(s) per every 50 mg/dL above 150 mg/dL qachs Diabetes Education: reviewed above treatment plan recommendations Diabetes Health Maintenance BP goal is < 140/90 Review vaccination history. Diabetes Discharge Planning: (Please use the Diabetes Discharge Order Set: Diabetes Orders - for those patients discharged on INSULIN) - If orals or non-insulin injectables recommended, will need to order them outside of the Diabetes Orderset. - Discharge Diet: DIET CARB CONTROLLED- 60 Grams per Meal - Patient Education: Your target blood sugar is 80-130 mg/dl fasting and under 180 mg/dl nonfasting. - Patient needs new insulin scripts at discharge: YES, needs all new insulin scripts prescribed. . - Basal plus oral medication Would discharge on glargine 18 units once daily plus daily DPP-4 inhibitor (whichever is preferred by his insurance) -Diabetes Supplies: - Glucose monitoring supplies for ACHS: Glucose test strips: dispense 150 with 1 refill - Patient prefers any brand or substitute brand covered by insurance, Lancets: dispense 150 with 1 refill, and alcohol swabs: dispense 200 with 1 refill - The patient will need script for new glucometer: yes: Patient prefers any brand or substitute brand covered by insurance -Other Diabetes Supplies: - Glucagon, rDNA, (Glucagon Emergency) 1 MG Kit Follow up needed: PCP in 2-4 weeks Thank you for allowing us to participate in your patients care. If you have questions please use [facility]->[facility]-> Internal Medicine-> Endocrinology & Metabolism-> Team 2 to identify neonatal surgeon pager. We will follow glucose trends with you and make recommendations as indicated. Chief Complaint Patient presents with Hypertension CC: uncontrolled hyperglycemia Date of admission: 09/08/2023 Admission diagnosis: Pneumoperitoneum [K66.8] Cerebrovascular accident (CVA), unspecified mechanism [I63.9] History of Present Illness: Maxwell Sandhu is a 53 y.o. year old male with Type 2 Diabetes Mellitus (T2DM) diagnosed several years ago who is seen in consultation at the request of Brock Goetz MD for assistance with evaluation of hyperglycemia and to make treatment recommendations. He was interviewed at his bedside in [facility]. Per review of his chart and discussion with patient and his sister who was present at the bedside, he has a significant history of BROOKE, hypothyroidism (no longer on medications since 2021), T2DM (no longer taking medications since 2021) and GERD presenting initially with stroke-like symptoms (facial numbness and LUE paresis) related to hypertensive urgency (resolved after BP controlled with Cardene), though noted to have incidental pneumoperitoneum on CXR without abdominal symptoms In regard to his history of diabetes, he is not currently taking any medications for glycemic control as an outpatient. He reports that he stopped taking them about 18 months ago. He had been prescribed metformin (he had GI side effects with this) and insulin (he is unsure of what kind that he tookor how many injections he took a day). He was previously prescribed trulicity but this had been stopped secondary to GI side effects Interval history: we discussed his glucose trends and plans for continuing his current insulin dosing as above Current Diet Orders Procedures DIET CARB CONTROLLED Standing Status: Standing Number of Occurrences: 1 Glucose Review: Diabetes History Lab Results Component Value Date HGBA1C 10.7 (H) 09/08/2023 Diagnosis (aprox date): several years ago Family History: sister, mother, grandmother Outpatient Clinic: PCP Prior regiments: metformin (had GI side effects), trulicity (had GI side effects), insulin (unsure of what kind that he took or how many injections he took a day) Date of most recent dilated eye exam: 2022 Tobacco/Nicotine: He reports that he has never smoked. His smokeless tobacco use includes chew. History of Pancreatitis: no History of GMI or UTI: no Home blood glucoses: not currently checking HOSPITAL MEDS: aspirin 81 mg Oral Daily enoxaparin 40 mg Subcutaneous Q12H insulin glargine 18 Units Subcutaneous Daily Insulin lispro Subcutaneous 4x daily w/meals, HS Losartan 25 mg Oral Daily nicotine 1 patch Transdermal Q24H And VERIFY LINKED PATCH PLACEMENT Other Q12H Polyethylene glycol 17 g Oral Daily Senna 8.6 mg Oral Daily ALLERGIES: has No Known Allergies. INFUSIONS:The past family, medical, and social history were otherwise reviewed and documented in the electronic record system. ROS: Negative for hypoglycemia Physical Exam General/Constitutional: male, who looks his stated age of 53 y.o.. No acute distress. Vital Signs: BP (!) 159/101 Pulse 64 Temp 97.7 F (36.5 C) (Oral) Resp 20 Ht 1.727 m (5' 8) Wt (!) 136.1 kg (300 lb 0.7 oz) SpO2 97% BMI 45.62 kg/m Smoking Status Never , Wt Readings from Last 3 Encounters: 09/09/23 (!) 136.1 kg (300 lb 0.7 oz) Body mass index is 45.62 kg/m . O2 Sat (%): [94 %-98 %] 97 % O2 Device: room air Flow (L/min): [0] 0 Head: Normocephalic and atraumatic. Pulmonary/Chest: Normal respiratory effort. Neurological: Conscious, alert and oriented. Psychiatric: Appropriate mood and affect for their clinical situation. Procedure / Imaging / Lab Data: Pertinent procedure/imaging/lab data was reviewed: Lab Results Component Value Date HGBA1C 10.7 (H) 09/08/2023 Lab Results Component Value Date CHOLESTEROL 146 09/08/2023 TRIG 132 09/08/2023 HDL 43 09/08/2023 LDLCALC 77 09/08/2023 Lab Results Component Value Date SODIUM 139 09/10/2023 POTASSIUM 4.1 09/10/2023 CHLORIDE 104 09/10/2023 CO2 24 09/10/2023 BUN 11 09/10/2023 CREATSERUM 0.61 (L) 09/10/2023 GLUCOSE 126 (H) 09/10/2023 No results found for: SPGRVTYUR, SPECGRAVUR, GLUCUR, GLUCOSEURINE, BILIRUBINURI, KETONESURINE, BLOODURINE, PHURINE, NITRITEURINE, NITRITESURIN, LEUKOCESTUR, WBCURINE, RBCURINE, BACTERIAURIN No results found for: TSH, PFR19AUL, IXY32BPW, TSHBASELINE, TSHULTRASEN, T3FREE, L3TLVVVUT, R8KNQYD, H1BBODKP, T4FREE, TPOAB No results found for: CREATURINE, MICROALBUMIN, MICALBCREAT Lab Results Component Value Date ALT 9 (L) 09/08/2023 No results found for: PREALBUMIN FIB-4 Calculation: 1.7 at 09/09/2023 12:06 AM Calculated from: SGOT/AST: 15 U/L at 09/08/2023 12:41 AM SGPT/ALT: 9 U/L at 09/08/2023 12:41 AM Platelets: 156 K/uL at 09/09/2023 12:06 AM Age: 53 years ECHO: Results for orders placed during the hospital encounter of 09/08/23 ECHOCARDIOGRAM 09/08/2023 (Final) Interpretation Summary No prior study at this institution for comparison. Left Ventricle: Chamber size is normal. Increased wall thickness. Concentric hypertrophy. Normal global systolic function. Regional wall motion is normal. Ejection fraction is normal (65 - 70%). Diastolic function could not be determined. Right Ventricle: Chamber size is enlarged. Systolic function is normal. Septum: The atrial septum is normal, no evidence of [id number] shunt by saline contrast. No hemodynamically signifcant valvular disease. Pulmonary artery systolic pressure (PASP) is unable to be estimated. Poor tricuspid regurgitation jet may not accurately reflect right ventricular systolic pressure. No pericardial effusion. CATH: No results found for this or any previous visit from the past 3650 days. No results found for: [id number] No results found for: [id number] * Siena Mckoy OT - 09/10/2023 9:03 AM EDT Occupational Therapy Attempt Note 09/10/2023 OT Therapy Completed: (P) Attempted Attempted Reason: (P) Patient is not medically optimized to tolerate therapy program Siena Mckoy OT Time In: (P) 0903 Time Out: (P) 0903 Total Visit Time: (P) 0 minutes Total Treatment Time (skilled, billable minutes): (P) 0 minutes * Thomas Cummings, FRONT DESK HOST-INSERTING PRESS OPERATOR - 09/09/2023 6:47 AM EDT TRAUMA & ACUTE CARE SURGERY DAILY PROGRESS NOTE Date: 09/09/2023 Admission: 09/08/2023 Attending: Chencho Perry MD HD #: 1 POD #: Events Overnight: HTN UPDATED PLAN OF CARE: Serial abdominal exams - stable NV following appreciate recs MRIs completed CT-C spine completed Pneumoperitoneum non - op Abdominal exam benign HTN - started on lisinopril yesterday, switch to metoprolol as that he states he tolerated better as DIANA caused coughing. Continue SSI - states on insulin but stopped 2 years ago, doesn't remember dose, also took metformin Carb controlled diet - stop MIV Consult diabetes. Medicine Transfer SUBJECTIVE: Patient reports Nausea: No, Vomiting: No, Flatus: Yes, Bowel Movement: No, Shortness of Breath: No, Pain Controlled: Yes PHYSICAL EXAM: Constitutional: Lying in bed in no acute distress HEENT: Normocephalic, atraumatic, anicteric sclera, clear oropharynx Neck: Supple Neurological: Awake, follows commands, moves all extremities to commands, no gross motor or sensorydeficits left hand weakness 3/5 Cardiovascular: Regular pulse, bilateral radial pulses +2, well perfused with warm extremities, no peripheral edema Pulmonary: Respirations easy and regular, no accessory muscle use, no audible wheezing noted GI: Abdomen rounded, soft, non-distended, non-tender to palpation - no rebound, guarding or peritonitis : No suprapubic tenderness with palpation. Musculoskeletal: Good pulse, motor and sensory to all four extremities. No deformities noted. Integumentary: Skin, pink, warm and dry, no obvious rashes or lesions Psych: Normal affect, asks appropriate questions, no evidence of psychosis Lines/Tubes: PIV DATA: [x] Vital Signs, I & O , Diagnostic Studies, Imaging and Medications results reviewed and independently interpreted from the last 24 hours. ASSESSMENT: Maxwell Sandhu is a 53 y.o.male PMH obesity, BROOKE, hypothyroidism (no longer on medications since 2021), T2DM (no longer taking medications since 2021) and GERD presenting initially with stroke-like symptoms (facial numbness and LUE paresis) related to hypertensive urgency (resolved after BP controlled with Cardene), though noted to have incidental pneumoperitoneum on CXR without abdominal symptoms - CT A/P @ OSH 09/05 with PO contrast does not demonstrate extraluminal contrast PLAN: Findings, medications and treatment plan discussed with Attending Physician Transfer from an Acute Care Setting (Outside Hospital) SURGICAL: Non-op NEUROLOGICAL: Concern for Brain Stem Infarction Neurovascular following with work up Repeat MRI pending CT c-spine pending Swallow study completed - low aspiration risk CARDIOVASCULAR: Essential Primary Hypertension Continue home medication regimen - No home meds Started hydralazine prn 09/07 started lisinopril switched to metoprolol 09/08 due to DIANA intolerance. No fill history GASTROINTESTINAL/NUTRITIONAL/ELECTROLYTES: Incidental Pneumoperitoneum on OSH CXR without Peritonitis: POA Non op Lab Results Component Value Date WBC 7.36 09/09/2023 WBC 9.37 09/08/2023 LACT 1.5 09/09/2023 LACT 3.1 (H) 09/08/2023 Diet:DIET REGULAR Conservative non-operative management for now Serial Abdominal Exams stable. CT AP with contrast did not demonstrate extraluminal contrast No stool or flatus ATB: None Gastro-esophageal Reflux Disease Continue home medication regimen - None Hypomagnesemia: POA Lab Results Component Value Date MAGNESIUM 1.8 09/09/2023 MAGNESIUM 1.8 09/08/2023 Admission Magnesium: 1.8 Magnesium replacement with goal of 2.0 ENDOCRINE: Diabetes Type II, Without Shelter Insulin Use, Without Long-term Complications POA Lab Results Component Value Date GLUCOSE 178 (H) 09/09/2023 GLUCOSE 157 (H) 09/09/2023 GLUCOSE 139 (H) 09/09/2023 HGBA1C 10.7 (H) 09/08/2023 Blood glucose checks Q6H with regular sliding scale insulin coverage since NPO IMMUNOLOGICAL/INFECTIOUS DISEASE: Acute Thrombocytopenia: POA Improved Lab Results Component Value Date PLATELET 156 09/09/2023 PLATELET 145 (L) 09/08/2023 Admission Platelet Count: 166 Complexity. Morbid Obesity Body mass index is 45.61 kg/m . - Follow with PCP for dietary and lifestyle modifications. Any conditions listed below are present on admission unless otherwise specified. Home meds: Reports that he does not take any medications. . Prophylaxis/Treatment: DVT Prophylaxis: SCD's and Out of bed as much as possible Bowel Regimen: Senna and Miralax Restraints - Discussed During Rounds - None ATB Time Out: An Antibiotic Time-Out was performed during patient rounds. Antimicrobial prescription reviewed. Plan after review is: None Discharge Planning: Follow up: No Follow Up Needed With Trauma or ACS Planned Discharge To: TBD Please call with any questions - JUAN FRANCISCO Noble Pager # [phone] (service pager) Associated attestation - Brock Goetz MD - 09/09/2023 12:51 PM EDT Attending Attestation I have physically seen and evaluated the patient. I agree with the advance practice provider's examfindings and plan. I have also discussed my personal assessment and plan with the advance practice provider, which includes: Appreciate NANDO recommendations for stroke workup. Diet advanced yesterday; tolerating PO without issue. Endocrinology consult for poorly controlled diabetes. Brock Goetz MD care attendant Division of Trauma, Critical Care, Burn 09/09/2023 * JUAN FRANCISCO Noble - 09/08/2023 12:26 PM EDT TRAUMA & ACUTE CARE SURGERY DAILY PROGRESS NOTE Date: 09/08/2023 Admission: 09/08/2023 Attending: Chencho Perry MD HD #: 0 POD #: Events Overnight: No acute events overnight. UPDATED PLAN OF CARE: Serial abdominal exams - stable Has had left hand weakness concerning for either a small brainstem stroke or some C spine pathologyso NV ordered a repeat brain MRI and a C spine MRI Possible stroke OSH - Neurovascular following MRI completed this am - planning repeat this afternoon Pneumoperitoneum non - op SUBJECTIVE: Patient reports Nausea: No, Vomiting: No, Flatus: No, Bowel Movement: No, Shortness of Breath: No, Pain Controlled:Yes PHYSICAL EXAM: Constitutional: Lying in bed in no acute distress HEENT: Normocephalic, atraumatic, anicteric sclera, clear oropharynx Neck: Supple Neurological: Awake, follows commands, moves all extremities to commands, no gross motor or sensorydeficits left hand weakness 3/5 Cardiovascular: Regular pulse, bilateral radial pulses +2, well perfused with warm extremities, no peripheral edema Pulmonary: Respirations easy and regular, no accessory muscle use, no audible wheezing noted GI: Abdomen rounded, soft, non-distended, non-tender to palpation - no rebound, guarding or peritonitis : No suprapubic tenderness with palpation. Musculoskeletal: Good pulse, motor and sensory to all four extremities. No deformities noted. Integumentary: Skin, pink, warm and dry, no obvious rashes or lesions Psych: Normal affect, asks appropriate questions, no evidence of psychosis Lines/Tubes: PIV DATA: [x] Vital Signs, I & O , Diagnostic Studies, Imaging and Medications results reviewed and independently interpreted from the last 24 hours. ASSESSMENT: Maxwell Sandhu is a 53 y.o.male PMH obesity, BROOKE, hypothyroidism (no longer on medications since 2021), T2DM (no longer taking medications since 2021) and GERD presenting initially with stroke-like symptoms (facial numbness and LUE paresis) related to hypertensive urgency (resolved after BP controlled with Cardene), though noted to have incidental pneumoperitoneum on CXR without abdominal symptoms - CT A/P @ OSH 09/05 with PO contrast does not demonstrate extraluminal contrast PLAN: Findings, medications and treatment plan discussed with Attending Physician Transfer from an Acute Care Setting (Outside Hospital) SURGICAL: Non-op NEUROLOGICAL: Concern for Brain Stem Infarction Neurovascular following with work up Repeat MRI pending CT c-spine pending Swallow study completed - low aspiration risk CARDIOVASCULAR: Essential Primary Hypertension Continue home medication regimen - No home meds Started hydralazine prn No fill history GASTROINTESTINAL/NUTRITIONAL/ELECTROLYTES: Incidental Pneumoperitoneum on OSH CXR without Peritonitis: POA Non op Lab Results Component Value Date WBC 9.37 09/08/2023 LACT 3.1 (H) 09/08/2023 LACT 2.5 (H) 09/08/2023 Diet:DIET NPO with meds Conservative non-operative management for now Serial Abdominal Exams stable. CT AP with contrast did not demonstrate extraluminal contrast No stool or flatus ATB: None Gastro-esophageal Reflux Disease Continue home medication regimen - None Hypomagnesemia: POA Lab Results Component Value Date MAGNESIUM 1.8 09/08/2023 Admission Magnesium: 1.8 Magnesium replacement with goal of 2.0 ENDOCRINE: Diabetes Type II, Without Shelter Insulin Use, Without Long-term Complications POA Lab Results Component Value Date GLUCOSE 215 (H) 09/08/2023 HGBA1C 10.7 (H) 09/08/2023 Blood glucose checks Q6H with regular sliding scale insulin coverage since NPO IMMUNOLOGICAL/INFECTIOUS DISEASE: Acute Thrombocytopenia: POA Lab Results Component Value Date PLATELET 145 (L) 09/08/2023 PLATELET 166 09/08/2023 Admission Platelet Count: 166 Complexity. Thrombocytopenia - Continue to monitor. Morbid Obesity Body mass index is 44.43 kg/m . - Follow with PCP for dietary and lifestyle modifications. Any conditions listed below are present on admission unless otherwise specified. Home meds: Reports that he does not take any medications. . Prophylaxis/Treatment: DVT Prophylaxis: SCD's and Out of bed as much as possible Bowel Regimen: Senna and Miralax Restraints - Discussed During Rounds - None ATB Time Out: An Antibiotic Time-Out was performed during patient rounds. Antimicrobial prescription reviewed. Plan after review is: None Discharge Planning: Follow up: No Follow Up Needed With Trauma or ACS Planned Discharge To: TBD Please call with any questions - Thomas Cummings APRN-INSERTING PRESS OPERATOR Pager # [phone] (service pager) * CK Potts - 09/08/2023 8:12 AM EDT Acute Care Speech Therapy Screen Note WARP CLAMPER swallow consult received and chart review completed this date. [place] Swallow Screen was completed by Rn and patient passed indicating that aspiration risk is low. Pt's current diet is NPO due to procedure. Based on conversation with RN and chart review, pt's symptoms do not appear related to oropharyngeal dysphagia. Therefore, pt does not have any skilled WARP CLAMPER needs at this time and completion of swallow evaluation is not warranted. WARP CLAMPER will complete consult. Please re-consult if pt should experience a change in swallow status. Time in: 812 Time out: 812 Speech-Language Pathologist Lorrei Daniels MA, [facility]WARP CLAMPER Pager: [phone] License: [email or web address] Email: [email or web address] via [email or web address] Chat, Monday-Monday from 7:00am-3:30pm documented in this encounterOS[facility] Plan of care note* Plan of Care - Kamla Crystal RN - 09/11/2023 4:22 AM EDT Problem: Adult Inpatient Plan of Care Goal: Plan of Care Review Outcome: Progressing Goal: Patient-Specific Goal (Individualized) Outcome: Progressing Goal: Absence of Hospital-Acquired Illness or Injury Outcome: Progressing Goal: Optimal Comfort and Wellbeing Outcome: Progressing Goal: Readiness for Transition of Care Outcome: Progressing [facility]08-04-2024 Consult note* Tello Patel MD - 09/10/2023 12:29 PM EDTAssociated Order(s): IP CONSULT TO GENERAL MEDICINE GENERAL INTERNAL MEDICINE CONSULT Patient: Maxwell Sandhu, 1970, [id number] Physician: Tello Patel MD, Attending Physician, Pager #[phone] Date of face to face patient encounter: 09/10/2023 Consulting Physician: Brock Goetz MD IMPRESSION/PLAN Principal Problem: Pneumoperitoneum Hypertensive urgency: - no indication of end organ damage. Per Neurology suspect symptoms due to seizure, do not believe patient had CVA. No PRESS on MRI - goal normotensive per neurology. Will aim to drop BP by 25% today from 200 so goal for tomorrow AM 150 - continue losartan - started Procardia 30 - continue PRN hydralazine. Added PRN labetalol - patient has been off BP meds for 2 years. He does not recall what he was on prior. Episodic left side spasms, weakness, slurred speech: - being managed by Neurovascuar, uspect symptoms due to seizure, do not believe patient had CVA - started on Keppra DM2: - defer to Endocrine team. Patient will need teaching before discharge BROOKE: on CPAP currently. Does not have a machine at home Thank you for the consult. Please page Beeper Consult Pager: [phone] with questions. REASON FOR CONSULTATION BP management HISTORY OF PRESENT ILLNESS Maxwell Sandhu is a 53 y.o. male that has been admitted to [facility]. This is a 53 y.o male with PMH of HTN, DM2, gout, BROOKE who is admitted under ACS. He was transferredto OSH with pneumoperitoneum and symptoms of left side weakness and slurred speech. Initial MRI wasnegative. Repeat MRI with questionable tiny infarct in the chantel. Regarding his weakness he continues to have episodes that last a few minutes at a time and resolve spontaneously. He is awake during these episodes. His BP was significantly elevated and remains so. Up to 200s systolic currently. He denies any CP, SOB, dizziness or palpitations. He stopped taking his HTN meds two years ago. He denies any hx of CAD, CHF, CVA, CKD. Regarding his pneumoperitenium this was believed to be an incidental finding and no workup is planned by ACS. He is tolerating a diet and has no abdominal pain. MEDICAL HISTORY Past Medical History: Diagnosis Date COPD (chronic obstructive pulmonary disease) Depression Diabetes mellitus Essential hypertension, benign GERD (gastroesophageal reflux disease) Hyperlipidemia Hypothyroidism Migraine Past Surgical History: Procedure Laterality Date ARTHROSCOPY KNEE Left CERVICAL FUSION SOCIAL HISTORY Social History Tobacco Use Smoking status: Never Smokeless tobacco: Current Types: Chew Substance Use Topics Alcohol use: Yes Social History Substance and Sexual Activity Drug Use Never FAMILY HISTORY family history is not on file. MEDICATIONS None ALLERGIES No Known Allergies REVIEW OF SYSTEMS Constitutional (- fever, chills, weight changes) Eyes (negative for vision changes) ENT (- ringing, loss of hearing) Cardiovascular (no LE edema or leg pain with walking, denies PND, orthopnea) Respiratory (no cough, SOB) Gastrointestinal (no abd pain, constipation, diarrhea) Genitourinary (- dysuria, gross hematuria) Integumentary (no rash) Musculoskeletal (no joint deformity, joint pains) Psych: no depressed mood PHYSICAL EXAM Vitals: 09/10/23 1142 BP: (!) 180/104 Pulse: Resp: Temp: SpO2: O2 Device: room air (09/10/23 1134) Flow (L/min): 0 (09/09/232111) Gen: AGE@ male Alert, Awake, Oriented x 3, in NAD Eyes: PERRLA, EOMI, no icterus ENT: MMM, trachea midline Resp: lungs are clear to auscultation bilaterally, with normal respiratory effort Cardio: RRR, normal S1, S2, no M/R/G. No INNA. GI: Soft/Nontender/Non-distended, normoactive BS Psych: appropriate affect and cognition DATA REVIEW WBC/Hgb/Hct/Plts: 7.72/14.7/45.0/141 (09/10 43) Na/K+/Phos/Mg/Ca: 139/4.1/4.2/2.0/-- (09/10 43) Bun/Creat/Cl/CO2/Glucose: 11/0.61/104/24/157 (09/10 43-09/09 733) Body mass index is 45.62 kg/m . Signed, Tello Patel MD Beeper Consult Pager: [phone] Division of Hospital Medicine [facility] Work Phone: [phone]) 377-808708-04-2024 Plan of care note* Plan of Care - Kenny Crowe RN - 09/10/2023 9:15 AM EDT Problem: Adult Inpatient Plan of Care Goal: Plan of Care Review Outcome: Progressing Goal: Patient-Specific Goal (Individualized) Outcome: Progressing Goal: Absence of Hospital-Acquired Illness or Injury Outcome: Progressing Goal: Optimal Comfort and Wellbeing Outcome: Progressing Goal: Readiness for Transition of Care Outcome: Progressing [facility]08-04-2024 Nurse Note* Nursing Notes - Kenny Crowe RN - 09/10/2023 8:58 AM EDT 0730: Paged Pat Quevedo MD - [facility] [phone] 7BSH: pt reporting n/t in lips, left arm, leftarm contracture. Speech clear, no facial droop. Please come assess. - AYUSH Cox [phone]. Dr. Quevedo to bedside promptly, pt assessed, s/s resolved. NO concern for stroke. Primary team notified of SBP 190's. Scheduled metoprolol and losartan given. 0840: Primary team notified of return of s/s, SBP 200's. PRN hydralazine given. [facility]08-03-2024 Consult note* Missael Harkins MD - 09/09/2023 10:55 AM EDTAssociated Order(s): IP CONSULT TO ENDOCRINOLOGY - DIABETES Images from the original note were not included. [facility] Inpatient Diabetes Consult - Team 2 *For provider neonatal surgeon, please use [employer]->[facility]-> Internal Medicine-> Endocrinology & Metabolism-> Team 2 Impression: Uncontrolled Type 2 Diabetes Mellitus (T2DM) admitted with stroke- like symptoms (facialnumbness and LUE paresis) related to hypertensive urgency (resolved after BP controlled with Cardene), incidental pneumoperitoneum on imaging without abdominal symptoms A1c on admission: 10.7% Diabetes Inpatient Plan: based on overall glucose trends would recommend the following Basal: Insulin glargine: 18 units daily Prandial: Insulin lispro: 1 unit per 10 gram carbs qachs & prn Correction: Insulin lispro: 1 unit(s) per every 50 mg/dL above 150 mg/dL qachs Diabetes Education: reviewed above treatment plan recommendations Diabetes Health Maintenance BP goal is < 140/90 Review vaccination history. Diabetes Discharge Planning: TBD Follow up needed: TBD Thank you for allowing us to participate in your patients care. If you have questions please use [employer]->[facility]-> Internal Medicine-> Endocrinology & Metabolism-> Team 2 to identify neonatal surgeon pager. We will follow glucose trends with you and make recommendations as indicated. Chief Complaint Patient presents with Hypertension CC: uncontrolled hyperglycemia Date of admission: 09/08/2023 Admission diagnosis: Pneumoperitoneum [K66.8] Cerebrovascular accident (CVA), unspecified mechanism [I63.9] History of Present Illness: Maxwell Sandhu is a 53 y.o. year old male with Type 2 Diabetes Mellitus (T2DM) diagnosed several years ago who is seen in consultation at the request of Brock Goetz MD for assistance with evaluation of hyperglycemia and to make treatment recommendations. He was interviewed at his bedside in [facility]. Per review of his chart and discussion with patient and his sister who was present at the bedside, he has a significant history of BROOKE, hypothyroidism (no longer on medications since 2021), T2DM (no longer taking medications since 2021) and GERD presenting initially with stroke-like symptoms (facial numbness and LUE paresis) related to hypertensive urgency (resolved after BP controlled with Cardene), though noted to have incidental pneumoperitoneum on CXR without abdominal symptoms In regard to his history of diabetes, he is not currently taking any medications for glycemic control as an outpatient. He reports that he stopped taking them about 18 months ago. He had been prescribed metformin (he had GI side effects with this) and insulin (he is unsure of what kind that he tookor how many injections he took a day). He was previously prescribed trulicity but this had been stopped secondary to GI side effects Current insulin orders: Prandial: 1 unit per 10 gram carbs Correction: 1 unit per 50 mg/dl above 150 mg/dl Insulin dosing over the last 24 hours: Regular: 6 units Lispro: 5 units Current Diet Orders Procedures DIET CARB CONTROLLED Standing Status: Standing Number of Occurrences: 1 Glucose Review: Diabetes History Lab Results Component Value Date HGBA1C 10.7 (H) 09/08/2023 Diagnosis (aprox date): several years ago Family History: sister, mother, grandmother Outpatient Clinic: PCP Prior regiments: metformin (had GI side effects), trulicity (had GI side effects), insulin (unsure of what kind that he took or how many injections he took a day) Date of most recent dilated eye exam: 2022 Tobacco/Nicotine: He reports that he has never smoked. His smokeless tobacco use includes chew. History of Pancreatitis: no History of GMI or UTI: no Home blood glucoses: not currently checking There is no immunization history on file for this patient. Social History Tobacco Use Smoking Status Never Smokeless Tobacco Current Types: Chew Social History Substance and Sexual Activity Alcohol Use Yes Past Medical History: Diagnosis Date COPD (chronic obstructive pulmonary disease) Depression Diabetes mellitus Essential hypertension, benign GERD (gastroesophageal reflux disease) Hyperlipidemia Hypothyroidism Migraine Past Surgical History: Procedure Laterality Date ARTHROSCOPY KNEE Left CERVICAL FUSION History reviewed. No pertinent family history. HOSPITAL MEDS: aspirin 81 mg Oral Daily enoxaparin 40 mg Subcutaneous Q12H insulin glargine 18 Units Subcutaneous Daily Insulin lispro Subcutaneous 4x daily w/meals, HS Metoprolol 25 mg Oral Q12H nicotine 1 patch Transdermal Q24H And VERIFY LINKED PATCH PLACEMENT Other Q12H Polyethylene glycol 17 g Oral Daily Senna 8.6 mg Oral Daily ALLERGIES: has No Known Allergies. INFUSIONS:The past family, medical, and social history were otherwise reviewed and documented in the electronic record system. ROS: Pertinent items are noted in the HPI. Constitutional: Pt denies confusion Skin: Negative for lesions HENT: Negative for sore throat Eyes: Negative for double vision Cardiovascular: Negative for palpitations Respiratory: Negative for SOB Gastrointestinal: Negative for nausea Physical Exam General/Constitutional: male, who looks his stated age of 53 y.o.. No acute distress. Vital Signs: BP (!) 176/98 (BP Location: Left arm, BP Position: Lying) Comment: RN notified. Provider aware, hydralazine to be given if SBP >180 Pulse 68 Temp 97.7 F (36.5 C) (Axillary) Resp 16 Ht 1.727m (5' 8) Wt (!) 136.1 kg (300 lb 0.7 oz) SpO2 98% BMI 45.62 kg/m Smoking Status Never , Wt Readings from Last 3 Encounters: 09/09/23 (!) 136.1 kg (300 lb 0.7 oz) Body mass index is 45.62 kg/m . O2 Sat (%): [93 %-98 %] 98 % O2 Device: Nocturnal CPAP/BIPAP Flow (L/min): [0-3] 3 Head: Normocephalic and atraumatic. Eyes: Sclerae and conjunctiva are clear. Neck: Supple Pulmonary/Chest: Normal respiratory effort. Abdominal: Non-distended Neurological: Conscious, alert and oriented. Skin: Fingernails are intact Psychiatric: Appropriate mood and affect for their clinical situation. Procedure / Imaging / Lab Data: Pertinent procedure/imaging/lab data was reviewed: Lab Results Component Value Date HGBA1C 10.7 (H) 09/08/2023 Lab Results Component Value Date CHOLESTEROL 146 09/08/2023 TRIG 132 09/08/2023 HDL 43 09/08/2023 LDLCALC 77 09/08/2023 Lab Results Component Value Date SODIUM 138 09/09/2023 POTASSIUM 3.9 09/09/2023 CHLORIDE 104 09/09/2023 CO2 22 09/09/2023 BUN 7 09/09/2023 CREATSERUM 0.51 (L) 09/09/2023 GLUCOSE 178 (H) 09/09/2023 No results found for: SPGRVTYUR, SPECGRAVUR, GLUCUR, GLUCOSEURINE, BILIRUBINURI, KETONESURINE, BLOODURINE, PHURINE, NITRITEURINE, NITRITESURIN, LEUKOCESTUR, WBCURINE, RBCURINE, BACTERIAURIN No results found for: TSH, CBG34UXG, WGJ63QOQ, TSHBASELINE, TSHULTRASEN, T3FREE, H6CHASATK, T8FGXUN, F1GAQPYC, T4FREE, TPOAB No results found for: CREATURINE, MICROALBUMIN, MICALBCREAT Lab Results Component Value Date ALT 9 (L) 09/08/2023 No results found for: PREALBUMIN FIB-4 Calculation: 1.7 at 09/09/2023 12:06 AM Calculated from: SGOT/AST: 15 U/L at 09/08/2023 12:41 AM SGPT/ALT: 9 U/L at 09/08/2023 12:41 AM Platelets: 156 K/uL at 09/09/2023 12:06 AM Age: 53 years ECHO: Results for orders placed during the hospital encounter of 09/08/23 ECHOCARDIOGRAM 09/08/2023 (Final) Interpretation Summary No prior study at this institution for comparison. Left Ventricle: Chamber size is normal. Increased wall thickness. Concentric hypertrophy. Normal global systolic function. Regional wall motion is normal. Ejection fraction is normal (65 - 70%). Diastolic function could not be determined. Right Ventricle: Chamber size is enlarged. Systolic function is normal. Septum: The atrial septum is normal, no evidence of jsdhn-jo-guzc shunt by saline contrast. No hemodynamically signifcant valvular disease. Pulmonary artery systolic pressure (PASP) is unable to be estimated. Poor tricuspid regurgitation jet may not accurately reflect right ventricular systolic pressure. No pericardial effusion. CATH: No results found for this or any previous visit from the past 3650 days. No results found for: [id number] No results found for: [id number] [facility]08-03-2024 Plan of care note* Plan of Care - Kenny Crowe RN - 09/09/2023 7:45 AM EDT Problem: Adult Inpatient Plan of Care Goal: Plan of Care Review Outcome: Progressing Goal: Patient-Specific Goal (Individualized) Outcome: Progressing Goal: Absence of Hospital-Acquired Illness or Injury Outcome: Progressing Goal: Optimal Comfort and Wellbeing Outcome: Progressing Goal: Readiness for Transition of Care Outcome: Progressing [facility]08-03-2024 Nurse Note* Nursing Notes - Opal Houston RN - 09/09/2023 12:27 AM EDT 2342 Patient's symptoms started again, MD Arturo at bedside. BP: 200/91, gave PRN hydralazine MD says Neuro [facility] notes says goal BP in under 220 and we will continue to monitor. Patient's symptoms are happening more frequently, but coming and going. [facility]08-02-2024 Nurse Note* Nursing Notes - Opal Houston RN - 09/08/2023 11:20 PM EDT Paged to MD Arturo [phone] 4CLH - [phone] - WJISZ Pt woke up with L sided weakness and tingling, mouth tingling, L hand sarika. Happened earlierin MRI. otherwise, pt asymptomatic. this floor does not do NIH score, please come assess. AYUSH Joseph [phone] No response, but symptoms have resolved. [facility]08-02-2024 Nurse Note* Nursing Notes - Shavon Johnston RN - 09/08/2023 3:02 PM EDT Pt to floor from ED. On admission to [facility], from ED a dual RN initial assessment of skin condition was performed by Shavon Johnston RN and Gallo PEACOCK Skin Assessment: Skin within defined limits:Yes Pt has some moisture to his groin area that he states is from urinating in the ED and missing the urinal. Otherwise all skin intact. LDA Added:No 1530 Family at bedside. Pt aware NPO and awaiting more info on the plan of care. BP elevated 185/90 uponadmission and medicated with PRN Hydralazine. Will recheck and continue to monitor. AYUSH Humphrey RN Recheck is 184/100 Thomas Cummings NURSE PRACTITIONER ADULT is aware. New orders obtained. To start Oral medication assist with BP. Shavon Johnston RN 4:50 PM 09/08/2023 [facility]08-02-2024 Emergency department Note* Lyndsay Franco RN - 09/08/2023 2:06 PM EDT Attempted to call report. No answer at [facility] desk. [facility]08-02-2024 Emergency department Note* Lyndsay Franco RN - 09/08/2023 2:06 PM EDT Attempted to call report. No answer at [facility] desk. * Lyndsay Franco RN - 09/08/2023 9:38 AM EDT Pt identified as a Fall risk. ED fall bundle kit implemented and visual fall communication tool reviewed with patient. Fall prevention sign displayed. Call light within reach. Patient verbalized understanding of fall risk yes Pt/ family understands not get out of bed without assistance yes Instructed to call for help to get of bed. yes Additional comments No * Charo Medley - 09/08/2023 8:59 AM EDT 09-08-23 @ 8:59 am Case Management/Recreation Specialist placed information in the patient's discharge paperwork on how to establish with a [facility] PCP and a list of the [facility] locations presently accepting new patients if needed. * Avril Rahman RN - 09/08/2023 7:24 AM EDT Amanda cummings NP and jannette syed md regarding patient hand drawing up. Repeat NIH performed andremains zero. * Avril Rahman RN - 09/08/2023 5:49 AM EDT Patient to MRI on spo2 for transport per dr. galvez Patient alert and oriented. No pain reported. * Noé Lizarraga MD - 09/08/2023 12:36 AM EDT eMERGENCY dEPARTMENT eNCOUnter CHIEF COMPLAINT Pneumoperitoneum/Arm Weakness Numbness HPI Maxwell Sandhu is a 53 y.o. male w/ hx of HTN, HLD, and T2DM who presents to the ED who presents emergency department a transfer outside hospital. Patient originally presents the outside hospital withpurulent numbness swell as left upper extremity weakness and numbness. Patient states the symptoms have not resolved. CT head CT angio of the brain and neck did not show any acute intracranial abnormalities. Patient was sent here for neurovascular evaluation. Patient was also found incidentally to have pneumoperitoneum on chest x-ray. CT of the abdomen pelvis redemonstrated this pneumoperitoneum.Patient denies any abdominal pain or abdominal distention. VITAL SIGNS: BP 134/84 Pulse 75 Temp 98.8 F (37.1 C) (Oral) Resp 20 Ht 1.753 m (5' 9) SpO2 95% Smoking Status Never EKG Interpretation Interpreted by Noé Lizarraga MD 09/08/2023 12:46 AM Rate: normal Rhythm: normal sinus Lowman: normal Conduction: normal ST Segments: normal T Waves: normal Clinical Impression: normal EKG ED COURSE & MEDICAL DECISION MAKING Pertinent Labs & Imaging studies reviewed. (See chart for details) Plan Labs, CXR, Consult General Surgery, Consult Neurovascular Medical Decision Making Amount and/or Complexity of Data Reviewed External Data Reviewed: labs, radiology and notes. Labs: ordered. Radiology: ordered. ECG/medicine tests: ordered and independent interpretation performed. Decision- making details documented in ED Course. This patient was staffed with a resident/mid-level provider. The assessment and plan of care was mutually agreed upon. On 09/07/2023 I saw and examined the patient. I discussed the history and examination with the resident physician and agree with the plan of care. I agree with the physical exam unless otherwise stated. I was present for any procedures done. Noé Lizarraga M.D. Clinical Professor of Emergency Medicine [facility] Emergency Department Noé Lizarraga MD 09/08/23 0046 * Kavita Cast MD - 09/08/2023 12:33 AM EDT DEPARTMENT OF EMERGENCY MEDICINE CHIEF COMPLAINT Hypertension ASHLYN Sandhu is a 53 y.o. male with history of uncontrolled HTN, T2DM, GERD, HLD who presents as transfer from OSH due to concern for pneumoperitoneum on imaging. Patient initially presented to outside hospital with perioral numbness and left upper extremity numbness and weakness. CT head and CTA were performed without any acute findings. Symptoms quickly resolved once presenting to outside hospital. Chest x-ray was performed in workup that incidentally showed signs of pneumoperitoneum. CT of the abdomen was then performed that also showed pneumoperitoneum. Patient denies any abdominal pain, nausea, vomiting, urinary symptoms. Has been having normal bowel movements. No hx of abdominal procedures. PAST MEDICAL HISTORY Past medical history was reviewed and is non-contributory to the presenting problem other than: Past Medical History: Diagnosis Date COPD (chronic obstructive pulmonary disease) Depression Diabetes mellitus Essential hypertension, benign GERD (gastroesophageal reflux disease) Hyperlipidemia Hypothyroidism Migraine SURGICAL HISTORY Past surgical history was reviewed and is non-contributory to the presenting problem other than: Past Surgical History: Procedure Laterality Date ARTHROSCOPY KNEE Left CERVICAL FUSION CURRENT MEDICATIONS Current Facility-Administered Medications Medication Dose Route Frequency Provider Last Rate Last Admin aspirin chewable tablet 81 mg 81 mg Oral Daily Arlette Morris MD Insulin regular (HUMULIN R;NOVOLIN R) injection Subcutaneous Q6H JUAN FRANCISCO Noble 2 Units at 09/09/23 0015 And Dextrose 50% injection 7.5-25 g 7.5-25 g Intravenous As directed PRN JUAN FRANCISCO Noble And glucose (GLUTOSE) 40 % oral gel 1-2 Tube 1-2 Tube Oral As directed PRN JUAN FRANCISCO Noble Enoxaparin Sodium (LOVENOX) injection 40 mg 40 mg Subcutaneous Q12H Harsh Majano MD 40 mg at 09/08/23 2211 hydrALAZINE (APRESOLINE) injection 5 mg 5 mg Intravenous Q6H PRN JUAN FRANCISCO Noble 5 mg at 09/09/23 0005 Lactated ringers IV solution Intravenous Continuous Harsh Majano MD 125 mL/hr at 09/09/23 0200 New Bag at 09/09/23 0200 Lisinopril (PRINIVIL) tablet 5 mg 5 mg Oral Daily JUAN FRANCISCO Noble 5 mg at 09/08/23 1728 nicotine (NICODERM CQ) 14 MG/24HR patch 1 patch 1 patch Transdermal Q24H JUAN FRANCISCO Noble 1 patch at 09/08/23 1330 And VERIFY LINKED PATCH PLACEMENT Other Q12H JUAN FRANCISCO Noble Ondansetron (ZOFRAN) tablet 4 mg 4 mg Oral Q6H PRN Harsh Majano MD Or Ondansetron 4mg/2ml (ZOFRAN) injection 4 mg 4 mg Intravenous Q6H PRN Harsh Majano MD Phenol (CHLORASEPTIC) 1.4 % oral spray 1 spray 1 spray Mouth/Throat PRN Harsh Majano MD Polyethylene glycol (MIRALAX) packet 17 g 17 g Oral Daily JUAN FRANCISCO Noble Prochlorperazine (COMPAZINE) tablet 5 mg 5 mg Oral Q6H PRN Harsh Majano MD Or Prochlorperazine (COMPAZINE) injection 5 mg 5 mg Intravenous Q6H PRN Harsh Majano MD Senna (SENOKOT) tablet 8.6 mg 8.6 mg Oral Daily JUAN FRANCISCO Noble Sodium chloride 0.9% IV solution 250 mL 250 mL Intravenous PRN Harsh Majano MD ALLERGIES No Known Allergies FAMILY HISTORY Family history was reviewed and is non-contributory to the presenting problem other than: History reviewed. No pertinent family history. SOCIAL HISTORY Social history was reviewed and is non-contributory to the presenting problem other than: Social History Socioeconomic History Marital status: Spouse name: Not on file Number of children: Not on file Years of education: Not on file Highest education level: Not on file Occupational History Not on file Tobacco Use Smoking status: Never Smokeless tobacco: Current Types: Chew Vaping Use Vaping status: Never Used Substance and Sexual Activity Alcohol use: Yes Drug use: Never Sexual activity: Not on file Other Topics Concern Not on file Social History Narrative Not on file Social Determinants of Health Financial Resource Strain: Not on file Food Insecurity: No Food Insecurity (09/08/2023) Hunger Vital Sign Worried About Running Out of Food in the Last Year: Never true Ran Out of Food in the Last Year: Never true Transportation Needs: No Transportation Needs (09/08/2023) PRAPARE - Transportation Lack of Transportation (Medical): No Lack of Transportation (Non-Medical): No Physical Activity: Unknown (11/11/2021) Received from [facility] Exercise Vital Sign Days of Exercise per Week: 0 days Minutes of Exercise per Session: Not on file Stress: Stress Concern Present (11/11/2021) Received from [facility] [employer] [place] - Occupational Stress Questionnaire Feeling of Stress : To some extent Social Connections: Socially Isolated (11/11/2021) Received from [facility] Social Connection and Isolation Panel [NHANES] Frequency of Communication with Friends and Family: Three times a week Frequency of Social Gatherings with Friends and Family: Once a week Attends Jewish Services: Never Active Member of Clubs or Organizations: No Attends Club or Organization Meetings: Never Marital Status: Intimate Partner Violence: Not At Risk (09/08/2023) Humiliation, Afraid, Rape, and Kick questionnaire Fear of Current or Ex-Partner: No Emotionally Abused: No Physically Abused: No Sexually Abused: No Housing Stability: Unknown (09/08/2023) Housing Stability Vital Sign Unable to Pay for Housing in the Last Year: No Number of Places Lived in the Last Year: Not on file Unstable Housing in the Last Year: No PHYSICAL EXAM BP 175/88 Pulse 79 Temp 98.3 F (36.8 C) (Oral) Resp 17 Ht 1.727 m (5' 8) Wt 136.1 kg (300 lb) SpO2 95% BMI 45.61 kg/m Smoking Status Never General: Alert and oriented. In no acute distress. HEENT: Normocephalic and atraumatic. Eyes: EOMI. PERRL. No scleral icterus. Oropharynx: Mucous membranes moist. Neck: Neck supple. No masses appreciated. Respiratory: Normal Respiratory effort. Clear to auscultation bilaterally Cardiovascular: Normal rate and regular rhythm No murmurs, rubs, or gallops appreciated. No peripheral edema 2+ pedal pulses bilaterally. Abdomen: Soft, non-distended, non-tender. No rebound/guarding. No organomegaly or massed noted. Musculoskeletal: No deformities noted. Normal range of motion all extremities. Neurological: Oriented x3, CN 2-12 intact grossly. Strength and sensation 5/5 in bilateral upper and lower extremities, no pronator drift, finger to nose intact. Skin: No cyanosis. No rashes or excoriations noted on face, abd, or limbs. Body mass index is 45.61 kg/m . Imaging: MRI BRAIN WITHOUT CONTRAST Final Result IMPRESSION: Potential focus of mild reduced diffusivity in the chantel, slightly right of midline, which could potentially represent an acute/subacute infarct versus artifact. No other potential acute abnormalities. SPINE CERVICAL WITHOUT CONTRAST Final Result IMPRESSION: Multilevel degenerative spondylosis and degenerative disc disease results in moderate to severe spinal canal stenosis at C2-3 and C3-4, with significant bilateral neuroforaminal stenoses as detailed above. C5-C6 myelomalacia. CARDIOGRAM Final Result MRI BRAIN STROKE WITHOUT CONTRAST Final Result IMPRESSION: 1. No evidence of acute infarct. 2. Nonspecific white matter changes as described above, which can be seen in chronic small vessel ischemic disease. I personally viewed and interpreted these images and I have reviewed and approved this report. CHEST 1 VIEW PORTABLE Final Result IMPRESSION: Limited study due to rotation and low lung volumes. Probable small volume of pneumoperitoneum beneath the right hemidiaphragm, also noted on the comparison outside radiograph. No airspace consolidation. I personally viewed and interpreted these images and I have reviewed and approved this report. COURSE & MEDICAL DECISION MAKING Assessment/Medical Decision Making: Maxwell Sandhu is a 53 y.o. male with history of uncontrolled HTN, T2DM, GERD, HLD who presents as transfer from OSH due to concern for pneumoperitoneum on imaging. On presentation, pt was resting in no acute distress. Vital signs within normal limits. Physical exam unremarkable, with no abdominal pain or focal neuro deficits. NIH 0. Very low concern for acute abdominal pathology given patient's benign abdominal exam, however General surgery was consulted given the finding on outside CT. They recommend NPO with admission for serial abdominal exams. Neurovascular consulted for initial presenting symptoms of left-sided weakness and numbness. They recommend MRI without contrast that was ordered. Patient was admitted to ACS service for further management. ED Course: ED Course as of 09/09/23334Sep 08, 2023 0113 Neurovasc and gen surg consulted Impression: Incidental pneumoperitoneum, L-sided numbness and weakness (resolved) Disposition: Admit Medical Decision Making Amount and/or Complexity of Data Reviewed Labs: ordered. Radiology: ordered. Risk Prescription drug management. Decision regarding hospitalization. This note was dictated using M[employer]Mad[employer] Dictation Software. Attempts at proofreading have been made, however errors may still occasionally occur. Kavita Cast MD PGY-2 Emergency Medicine Kavita Cast MD Resident 09/09/23 0336 * Avril Rahman RN - 09/08/2023 12:19 AM EDT Cardene drip stopped per ED resident dr. cast * Avril Rahman RN - 09/08/2023 12:05 AM EDT [facility] like symptoms. Pain in right eye and numbness and tingling left side. Periodically occurring x one week. Last fall Monday but doesn't remember if he hit his head.. cardene infusing at 5mg * Bobbi Cohen RN - 09/08/2023 12:05 AM EDT Bed: E023 Expected date: Expected time: Means of arrival: Comments: [place] [facility] Plan of care note* Plan of Care - JUAN FRANCISCO Bear - 09/08/2023 11:36 AM EDT Neurovascular update: 53 y.o. male with PMH significant for HTN, DM, and HLD off meds for 2 years who presented on 09/07/2023 with intermittent left sided numbness and tingling and found to have pneumoperitoneum.. NIHSS 1 for dysarthria. LKW: 09/06 1130 am. Numbness, tingling of lip, left upper extremity 1 week ago lasted for few minutes. NIHSS on telestroke 0. OSH CTH demonstrated no acute findings. CTA demonstrated no acute findings. Patient was seen and examined with stroke attending Dr. 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 Recommendations: -Recommend a repeat MRI brain with thin slices through brain stem (Ordered) -MRI C spine (ordered) -Aspirin 81 mg if and when otherwise safe medically -NV team will follow up on MRIs This plan was discussed with stroke attending Dr. Alford and has been communicated to the primary team. Please call with any questions. JUAN FRANCISCO Bear 09/08/2023 11:50 AM [facility]08-02-2024 Emergency department Note* Lyndsay Franco RN - 09/08/2023 9:38 AM EDT Pt identified as a Fall risk. ED fall bundle kit implemented and visual fall communication tool reviewed with patient. Fall prevention sign displayed. Call light within reach. Patient verbalized understanding of fall risk yes Pt/ family understands not get out of bed without assistance yes Instructed to call for help to get of bed. yes Additional comments No [facility]08-02-2024 Emergency department Note* Charo Medley - 09/08/2023 8:59 AM EDT 09-08-23 @ 8:59 am Case Management/Recreation Specialist placed information in the patient's discharge paperwork on how to establish with a [facility] PCP and a list of the [facility] locations presently accepting new patients if needed. [facility]08-02-2024 Hospital Discharge instructions* Discharge Instructions* JUAN FRANCISCO Cifuentes, DNP - 09/08/2023 8:59 AM EDT DO YOU HAVE A PRIMARY CARE PROVIDER? CALL [phone] TO SCHEDULE AN APPOINTMENT or if you have an active [facility] account you may schedule an appt through the [facility]. The [facility] Family Medicine, Primary Care and General Internal Medicine locations. If you are looking for a new primary care provider, please refer to the following list. These locations accept most insurance plans. It is recommended you call your insurance plan to verify coverage. Outpatient Care [facility] Medicine [address], [address] [place], [place] [id number] [facility] Internal [facility] Pediatrics [address] [place], [place] [id number] [facility] [address] [place], [place] [address] [facility] [place] [facility] [address] [place], [place] [address] Outpatient [facility] [address] [place] [address] [facility] Primary Care [address] [place] [address] Outpatient Care [facility] [address] [place], [place] [id number] Outpatient Care [place] [facility] - Family Medicine [address], 3rd Floor, [address] [place] [address] [facility] Medicine [address], 2nd Floor [place], [place] [address] [facility]: , 3 PM - 7 PM Outpatient Care [facility] Primary [facility] - General Internal Medicine [address], [place] [address] [facility] - General Internal Medicine [address], 3rd Floor [place], [place] [address] [facility] [place] [facility] Internal Medicine [address] Floor, [address] [place], [place] [address] Outpatient Care [place] [facility] Pediatric[facility] [address], 4th [address], [address] [place] [address] [facility] Internal Medicine [address] 3rd Floor [place], [place] [address] Outpatient Care [place] [facility] - Family Medicine [address] [place] [address], 3rd Floor, [address] [place] [address] Outpatient Care [place] [facility] - Family Medicine [address] 4th Floor, [address] [place] [address] [facility] Primary Care [address] [place], [place] [phone] [facility] [place] [address], [address] [place], [place] [address] [facility] [place] [address] [place] [address] [facility] [address] [place], [place] [address] [facility] [place] [address] [place], [place] [address] [facility] [address], 5th Floor [place], [place] [phone] Internal Medicine & Pediatrics [address] [id number] [facility] [address] [place] [address], [address] *individuals & families with [facility] insurance NOTE: If you need a Primary Care Physician, you [facility] to consider [facility] Contact them today at [phone] (you can also text your request to this number) or [phone] and they will helpset you up for your first appointment and prepare you for lifelong healthcare. They offer you an expansive catalog of specialty services and routine examinations to help promote you and your family shealth for years to come. Schedule Your Appointment Today Call [phone] between 7:45 a.m. and 5 p.m. Monday through Monday. For your convenience, they offer sterile instrument technician, weeknight and same-day appointments to accommodate your busy schedule. Are you inneed of interpreting services? Please let the enrollment representative know when you call. CLINICAL CRACKER OFF If you need any further assistance with scheduling follow up care, please call the Emergency Department Clinical Air Analysis Engineering Technician at . Follow Up Appointments Primary Care Provider Please make a follow up appointment or establish a Primary Care Provider within 2 weeks of discharge. Neurovascular follow up outpatient in 4-6 weeks , Amb referral placed Physical Therapy Outpatient referral placed * Attachments The following attachments cannot be sent through Care Everywhere. * Diabetes: Carb Counting and Eating Well: General Info (Guyanese) * Diabetes: Type 2 (Guyanese) * Hypertension (Guyanese) [facility] Emergency department Note* Avril Rahman RN - 09/08/2023 7:24 AM EDT Message miladys cummings NP and jannette syed md regarding patient hand drawing up. Repeat NIH performed andremains zero. [facility]08-02-2024 Emergency department Note* Avril Rahman RN - 09/08/2023 5:49 AM EDT Patient to [facility] on [facility] for transport per dr. galvez Patient alert and oriented. No pain reported. [facility]08-02-2024 NoteAcute Coronary Syndrome (ACS): Initial Evaluation and Management: [email or web address] [facility]08-02-2024 Physician Emergency department Note* Noé Lizarraga MD - 09/08/2023 12:36 AM EDT eMERGENCY dEPARTMENT eNCOUnter CHIEF COMPLAINT Pneumoperitoneum/Arm Weakness Numbness HPI Maxwell Sandhu is a 53 y.o. male w/ hx of HTN, HLD, and T2DM who presents to the ED who presents emergency department a transfer outside hospital. Patient originally presents the outside hospital withpurulent numbness swell as left upper extremity weakness and numbness. Patient states the symptoms have not resolved. CT head CT angio of the brain and neck did not show any acute intracranial abnormalities. Patient was sent here for neurovascular evaluation. Patient was also found incidentally to have pneumoperitoneum on chest x-ray. CT of the abdomen pelvis redemonstrated this pneumoperitoneum.Patient denies any abdominal pain or abdominal distention. VITAL SIGNS: BP 134/84 Pulse 75 Temp 98.8 F (37.1 C) (Oral) Resp 20 Ht 1.753 m (5' 9) SpO2 95% Smoking Status Never EKG Interpretation Interpreted by Noé Lizarraga MD 09/08/2023 12:46 AM Rate: normal Rhythm: normal sinus Lowman: normal Conduction: normal ST Segments: normal T Waves: normal Clinical Impression: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 depression (HCC) - buPROPion (WELLBUTRIN XL) 300 MG 24 hr tablet; Take 1 (one) tablet (300 mg total) by mouth daily . Muscle spasm - cyclobenzaprine (FLEXERIL) 10 MG tablet; Take 1 (one) tablet (10 mg total) by mouth 2 (two) timesa day as needed for muscle spasms . Incontinence of feces, unspecified fecal incontinence type - Ambulatory referral to Gastroenterology; Future With his increasing diarrhea with incontinent episodes and history of cervical injury will have evaluated by gastroenterology for possible neurogenic incontinence Curtis Hernandez M.D. For any new medications prescribed today, patient was educated about indications for the medication, how to take the medication and potential side effects of the medications. documented in this [id number] Hospital Discharge instructions ED Discharge Education Evaluation from 03/21/2021 11:33 PM: * Discharge Instruction : Reviewed Discharge Instructions with Patient/Significant Other,Patient/Significant Other Verbalized Understanding of Discharge Instructions,Patient/Significant Other Received Written Instructions,Prescriptions(s) with Medication Education Including Indication & Side Effects Provided to Patient/Siginificant Other * Educ Topic #1 : Disease Specific * Barriers to Learning : No Barriers * Teaching Method : Reading Materials * Evaluation Method : Verbal,Written * Educ Topic # 2 : Medication * Barriers to Learning : No Barriers * Teaching Method : Reading Materials * Evaluation Method : Verbal,Written Patient Transfer Information from 03/21/2021 4:17 PM: * LOC : Alert Physician Follow-up Plan/Appointments from 03/21/2021 4:17 PM: * Patient stated Primary Care Provider : PCP, NONE (PCP) ([facility] [id number]) - Medical [facility] Discharge summary Author Lawrence Cary [facility] Note Date/Time July 05, 2024 11:54 am [facility] Medical Records Department [address] [place] [address] Instructions for Home/Discharge Instructions 07/05/24 1152 MR#: [id number] Acct: [id number] Name: MAXWELL SANDHU Rep #:[id number] : 1970 54 From: Lawrence Flynn vlad DO PCP: Dr. Curtis Hernandez MD Status:A DM IN Discharge Instructions Diet Discharge Diet: 8 Cup Fluid Restriction, 4000 mg Sodium Diet and Carb Control Diet DC O2, CPAP, BIPAP needs Home O2 Discharge instructions: No Dressing / Incision Discharge Activity: No Restrictions Follow Up Care Test Results: Test results from this visit will be discussed in further detail at your follow- up appointment, if applicable. Discharge Plan Admission Admit Date/Time: 07/02/24 16:06 Primary Reason for Your Visit: Shortness of breath Attending Provider: Lawrence Cary Primary Care Provider: Curtis Hernandez Consulting Providers: Dse Hamm Discharge Orders/Prescriptions Prescriptions: New furosemide 40 mg Tablet 40 mg PO DAILY 30 Days Qty: 30 2RF Continued levetiracetam 500 mg tablet 500 mg PO BID Jardiance 10 mg tablet 10 mg PO DAILY apixaban 5 mg tablet 5 mg PO BID Qty: 134 0RF aspirin 81 mg tablet,chewable 1 tab PO DAILY atorvastatin 40 mg tablet 40 mg PO QHS diltiazem HCl 120 mg Capsule,Extended Release 24hr 120 mg PO Q12 120 Days Qty: 240 0RF insulin lispro 100 unit/mL insulin pen 10 unit subcut TID Qty: 15 0RF Protocol: 6. Sliding Scale Insulin Custom Condition: mg/dl range Dose/Route: Number of Units Protocol Text: Custom Sliding Scale Rx Instructions: patient on sliding scale with meals subcutaneously three times a day; insulin glargine [Lantus Solostar U-100 Insulin] 100 unit/mL (3 mL) insulin pen 25 unit subcut DAILY Qty: 15 0RF Referrals / Follow Up: Steven Saba MD [Med Staff - Active Staff] - Curtis Hernandez MD [Primary Care Provider] - Disposition Disposition (needs filled in before D/C Order can be placed): Home, Self Care 07/05/24 1154<Electronically signed by Lawrence Cary DO>Lawrence Cary DO CC: Dr. Des Hamm DO; Dr. Curtis Hernandez MD ~ Signed [facility] Work Phone: Evaluation + Plan note S Evaluation note* Diagnosis Type 2 diabetes mellitus without complication, without long-term current use of insulin (HCC)- Primary Essential hypertension, benign Pure hypercholesterolemia Acquired hypothyroidism Unspecified hypothyroidism Chronic gout of multiple sites, unspecified cause Moderate recurrent major depression (HCC) Major depressive disorder, recurrent episode, moderate Muscle spasm Spasm of muscle Incontinence of feces, unspecified fecal incontinence type [facility] Diagnosis Type 2 diabetes mellitus without complication, without long-term current use of insulin (HCC)- Primary Moderate recurrent major depression (HCC) Major depressive disorder, recurrent episode, moderate Muscle spasm Spasm of muscle Essential hypertension, benign Ataxia Lack of coordination [facility]* Diagnosis Colon cancer screening Special screening for malignant neoplasms, colon [facility]* Diagnosis Essential hypertension, benign- Primary Moderate recurrent major depression (HCC) Major depressive disorder, recurrent episode, moderate Type 2 diabetes mellitus without complication, without long-term current use of insulin (HCC) Muscle spasm Spasm of muscle Pure hypercholesterolemia [facility]* Diagnosis Type 2 diabetes mellitus without complication, without long-term current use of insulin (HCC)- Primary [facility]* Diagnosis Pneumoperitoneum- Primary Other specified disorder of peritoneum Cerebrovascular accident (CVA), unspecified mechanism Pneumoperitoneum Other specified disorder of peritoneum [facility] Type 2 diabetes mellitus without complication, without long-term current use of insulin (HCC)- Primary Essential hypertension, benign Pure hypercholesterolemia Seizure disorder (HCC) Unspecified epilepsy without mention of intractable epilepsy Morbid obesity with body mass index (BMI) of 40.0 or higher (HCC) [facility]* Diagnosis Cerebrovascular accident (CVA), unspecified mechanism- Primary Seizure Other convulsions Class 3 severe obesity due to excess calories with serious comorbidity and body mass index (BMI) of 50.0 to 59.9 in adult Hypersomnia Hypersomnia, unspecified [facility] Diagnosis Ulcer of right foot, unspecified ulcer stage (HCC)- Primary Type 2 diabetes mellitus without complication, without long-term current use of insulin (HCC) [facility]* Diagnosis Type 2 diabetes mellitus without complication, without long-term current use of insulin (HCC)- Primary Essential hypertension, benign [facility]* Diagnosis Type 2 diabetes mellitus without complication, without long-term current use of insulin (HCC)- Primary [facility] Diagnosis Ulcer of right foot, unspecified ulcer stage (HCC)- Primary [facility]* Diagnosis Seizure (HCC)- Primary Other convulsions Vision loss Unspecified visual loss [facility]* Diagnosis Seizure (HCC)- Primary Other convulsions Vision loss Unspecified visual loss Type 2 diabetes mellitus without complication, without long-term current use of insulin (HCC)- Primary [facility]* Diagnosis Seizure (HCC)- Primary Other convulsions Vision loss Unspecified visual loss Type 2 diabetes mellitus without complication, without long-term current use of insulin (HCC)- Primary Pure hypercholesterolemia [facility]* Diagnosis Onset Date Resolution Status Admit Date Bilateral pulmonary embolism acute June 03, 2024 1:50am Dehydration acute June 03, 025 1:50am Ear infection acute June 03, 2024 1:50am Elevated troponin acute May 082024 1:50am Erythrocytosis acute May 1:50am Morbid obesity with BMI of 50.0-59.9, adult acute June 03 1:50am Pulmonary embolism with infarction acute June 03, 2024 1:50am Tachycardia acute June 03, 025 1:50am Type 2 diabetes mellitus wit h hyperglycemia acute June 03, 2024 1:50am Hypertension chronic June 03, 2024 1:50am [facility] Work Phone: Evaluation note* Diagnosis Seizure (HCC)- Primary Other convulsions Vision loss Unspecified visual loss Type 2 diabetes mellitus without complication, without long-term current use of insulin (HCC) [facility] Diagnosis Seizure (HCC)- Primary Other convulsions Vision loss Unspecified visual loss Type 2 diabetes mellitus without complication, without long-term current use of insulin (HCC) [facility]* Diagnosis Seizure (HCC)- Primary Other convulsions Vision loss Unspecified visual loss Pulmonary embolism with infarction (HCC)- Primary Other pulmonary embolism and infarction Paroxysmal atrial fibrillation (HCC) Atrial fibrillation Pure hypercholesterolemia Type 2 diabetes mellitus without complication, without long-term current use of insulin (HCC) [facility]* Diagnosis Seizure (HCC)- Primary Other convulsions Vision loss Unspecified visual loss Type 2 diabetes mellitus without complication, without long-term current use of insulin (HCC) [facility]* Diagnosis Seizure (HCC)- Primary Other convulsions Vision loss Unspecified visual loss Essential hypertension, benign- Primary Pure hypercholesterolemia Paroxysmal atrial fibrillation (HCC) Atrial fibrillation Congestive heart failure, unspecified HF chronicity, unspecified heart failure type (HCC) [facility] Diagnosis Seizure (HCC)- Primary Other convulsions Vision loss Unspecified visual loss Paroxysmal atrial fibrillation (HCC)- Primary Atrial fibrillation Seizure (HCC) Other convulsions [facility] Diagnosis Seizure (HCC)- Primary Other convulsions Vision loss Unspecified visual loss Paroxysmal atrial fibrillation (HCC)- Primary Atrial fibrillation Seizure (HCC) Other convulsions Type 2 diabetes mellitus without complication, without long-term current use of insulin (HCC)- Primary [facility] Diagnosis Seizure (HCC)- Primary Other convulsions Vision loss Unspecified visual loss Paroxysmal atrial fibrillation (HCC)- Primary Atrial fibrillation Seizure (HCC) Other convulsions Type 2 diabetes mellitus without complication, without long-term current use of insulin (HCC) [facility] Author Des Hamm [facility] Note Date/Time July 02, 2024 4:16p m [facility] Medical Records Department [address] [place] [address] H&P Exam - Hospitalist 07/02/24 1609 MR#: [id number] Acct: [id number] Name: MAXWELL SANDHU Rep #:[id number] : 1970 54 From: Des Hamm DO PCP: Dr. Curtis Hernandez MD Status:R EG ER Location: ED HPI - General General Date of Service: 07/02/24 Chief Complaint: Shortness of breath HPI Narrative MAXWELL SANDHU, is a 54 M who presents with shortness of breath over the past 2 days. Has not slept and is unable to lay flat because he gets more short of breath laying flat. Presented to the emergency room where he underwent a CTA ofthe chest that showed increased bilateral pleural effusions. And on his intake weight appears that he is put on roughly 10 kg since his discharge on June 04. Patient received one-time dose of 40 mg IV furosemide. [facility] Medical History Sleep apnea Seizures Stroke/cerebrovascular accident Hypertension High cholesterol Diabetes Home Medications ?Medication ?Instructions ?Recorded ?Last Taken ?Type levetiracetam 500 mg tablet 500 mg PO BID keppra 10/3107/02/24 History aspirin 81 mg chewable tablet 1 tab PO DAILY heart hea lth 06/03/24 07/02/24 History atorvastatin 40 mg tablet 40 mg PO QHS choleterol 05/0807/02/24 History apixaban 5 mg tablet 5 mg PO BID #134 tabs 07/02/24 Rx diltiazem HCl 120 mg 120 mg PO Q12 120 days #240 caps 06/04/24 07/02/24 Rx capsule,extended release 24 hr insulin glargine 100 unit/mL (3 25 unit (0.25 mL) subc ut DAILY 06/04/24 07/02/24 Rx mL) subcutaneous pen (Lantus diabetes #15 mL Solostar U-100 Insulin) insulin lispro 100 unit/mL 10 unit subcut TID diabetes #15 mL 06/04/24 07/02/24 Rx subcutaneous pen empagliflozin 10 mg tablet 10 mg PO DAILY 07/02/24 Unk nown History (Jardiance) Allergy/AdvReac Type Severity Reaction Status Date / Time No Known Allergies Allergy Verified 07/02/24 12:49 Family History (Updated 07/02/24 @ 16:[address] Des Hamm DO) Other Heart disease Surgical History Hx of neck surgery Social History household members: spouse and family housing: house Smoking Status: Never smoker ROS ROS Narrative No fever or chills. No chest pain. No abdominal pain. All review of systems were negative except as mentioned above in the history of present illness and the other review of systems. Vital Signs Vital Signs Vital Signs: 07/02/24 12:44 07/02/24 12:57 07/02/24 12:57 Temperature 36.6 C 37.0 C Temperature Source Oral Oral Pulse Rate 117 H 74 Respiratory Rate 20 H 19 H Respiratory Effort Normal Non-Labored Respiratory Depth Normal Respiratory Pattern Normal Blood Pressure 131/68 H 130/79 H Blood Pressure Mean 89 96 Pulse Ox 88 90 Oxygen Delivery Method Room Air Nasal Cannula Room Air Oxygen Flow Rate (L/min) 2 07/02/24 13:15 07/02/24 13:16 07/02/24 13:37 Temperature Temperature Source Pulse Rate Respiratory Rate Respiratory Effort Respiratory Depth Respiratory Pattern Blood Pressure Blood Pressure Mean Pulse Ox 88 90 90 Oxygen Delivery Method Nasal Cannula Nasal Cannula Nasal Cannula Oxygen Flow Rate (L/min) 2 3 3 07/02/24 13:49 07/02/24 14:00 07/02/24 15:00 Temperature 37.0 C 36.8 C 37.0 C Temperature Source Oral Oral Oral Pulse Rate 59 L 59 L 74 Respiratory Rate 28 H 20 H 18 Respiratory Effort Respiratory Depth Respiratory Pattern Blood Pressure 130/78 H 143/85 H 107/77 Blood Pressure Mean 95 104 87 Pulse Ox 90 90 90 Oxygen Delivery Method Nasal Cannula Nasal Cannula Nasal Cannula Oxygen Flow Rate (L/min) 3 3 3 07/02/24 16:02 Temperature 37.0 C Temperature Source Pulse Rate 74 Respiratory Rate 18 Respiratory Effort Respiratory Depth Respiratory Pattern Blood Pressure 107/77 Blood Pressure Mean 87 Pulse Ox 90 Oxygen Delivery Method Oxygen Flow Rate (L/min) Weight Weight: 170.9 kg Body Mass Index (BMI) 55.6 Physical Exam Narrative POCUS: Limited POCUS exam was for heart failure. Using curvilinear probe (as nocardiac probe was available on the ED ultrasound) IVC was dilated and noncompressible with inspiration. Subxiphoid view of the heart. Show that was grossly normal. - Physical Exam General: Alert, Oriented x3, Cooperative HEENT: Atraumatic, PERRLA, EOMI, Normocephalic Oral: Moist Mucosa, No Gingival or Mucosal Lesions/ Ulcerations Neck: Supple, No JVD, Negative Carotid Bruits Lungs: Bibasilar crackles, Normal air movement Cardiovascular: Regular rate, Normal S1, Normal S2, No murmurs Abdomen: Bowel Sounds Present, Soft, Non Tender, Non-Distended, No Hepato-splenomegaly Extremities: No clubbing, No cyanosis, bilateral lower extremity edema. Skin: No rashes, No breakdown Musculoskeletal: No Tenderness to Palpation of Joints or Extremities Neurological: Moves all extremity spontaneously. Psych/Mental Status: Normal Affect, Appropriate Results Lab / Micro Data Attestation: I reviewed the patient's lab results. 07/02/24 13:14 07/02/24 13:14 Labs: Laboratory Results - last 24 hr 07/02/24 13:14: WBC 10.2, RBC 5.53, Hgb 14.7, Hct 45.4, MCV 82.1, MCH 26.6 L, MCHC 32.4, RDW Std Deviation 40.9, RDW Coeff of Masha 14.0, Plt Count 214, MPV 12.0, Immature Gran % (Auto) 0.300, Neut % (Auto) 75.1 H, Lymph % (Auto) 14.5 L,[place] % (Auto) 7.7, Eos % (Auto) 1.4, Baso % (Auto) 1.0, Absolute Neuts (auto) 7.7, Absolute Lymphs (auto) 1.47, Nucleated RBC % 0, PT 16.1 H, INR 1.3, APTT 34.4, Sodium 139, Potassium 4.2, Chloride 103, Carbon Dioxide 25.2, Anion Gap 11, BUN 16, Creatinine 0.66 L, Estim Creat Clear Calc 200.49, Est GFR (MDRD) Non-Af 111, BUN/Creatinine Ratio 23.5 H, Glucose 182 H, Calcium 9.2, Troponin T High Sens 54 H*, NT pro BNP II 2002 H Micro: Microbiology 07/02/24 13:33 Mucosa - Nose SARS-CoV-2, Influenza & RSV (PCR) - Final EKG Initial EKG: Attestation: I personally reviewed and interpreted this EKG as follows: Prior EKG tracings: available for review EKG Rhythm Intrepretation: Atrial Flutter Imaging Radiology Impression Chest CTA 07/02/24 13:28 IMPRESSION: Bilateral pleural effusions right greater than left with bibasilar infiltration and/or atelectasis. No evidence of pulmonary embolism. Reading Location: [facility] Assessment & Plan Assessment/Plan (1) (HFpEF) heart failure with preserved ejection fraction: PLAN: Acute Patient has increased pleural effusions on his CT as compared to imaging from 06/03. Additionally his weight is gone up roughly 10 kg since his discharge on 04 June. Patient received 40 mg of IV furosemide in the ED. With his marked edema and the fact that he has worsened, put on a furosemide drip. Daily weights. I impressed on upon the patient that he needs to get a scale at home keep a record of his weights and would need to manage his weights until he gets down to his dry weight. In that way he can tell also if he started to put on weight he may not have any noticeable changes nor symptoms but that couldcertainly reflect that he may be having worsening heart failure if he is able tomonitor his weight. Will also have nutrition reinforced dietary restrictions regards to fluid restriction as well as sodium restriction. PLAN: Plan Chronic conditions * Atrial flutter: Anticoagulant with apixaban. Continue with diltiazem. * Diabetes mellitus type 2: Insulin-dependent. Continue with his glargine and prandial insulin. Add sliding scale insulin. Continue with empagliflozin. Check an A1c. * Seizure disorder: Continue levetiracetam. * Hyperlipidemia: Continue with atorvastatin. VTE prophylaxis: Not indicated as patient is already anticoagulated. Charges/Coding Visit Charges Inpatient E&M: 15713 Init Hosp L3 07/02/24 1616 <Electronically signed by Des Hamm DO> Cosigner Signature (if applicable): CC: Dr. Des Hamm DO; Dr. Curtis Hernandez MD~ Signed [facility] Work Phone: [facility] course [facility] Reason for referral (narrative)* Consultation (Routine) - New Request Specialty Diagnoses / Procedures Referred By Contac t Referred To Contact Diagnoses Cerebrovascular accident (CVA), unspecified mechanism Class 3 severe obesity due to excess calories with serious comorbidity and body mass index (BMI) of 50.0 to 59.9 in adult Hypersomnia Reji Curran MD [address] [address] Referral ID Status Reason Start Date Expiration Date V isits Requested Visits Authorized [id number] New Request 10/25/2023 11/18/2024 1 1 * Consultation (Routine) - New Request Specialty Diagnoses / Procedures Referred By Contac t Referred To Contact Diagnoses Seizure Reji Curran MD [address] [address] Referral ID Status Reason Start Date Expiration Date V isits Requested Visits Authorized [id number] New Request 10/25/2023 11/18/2024 1 1 [facility] ([facility]ative[facility]No reason for referral information availableWOhioHealth [facility] Work Phone: Assessments and Plan Discharge Instructions ED Discharge Education Evaluation from 04/26/2020 3:47 PM: * Discharge Instruction : Prescriptions(s) with Medication Education Including Indication & Side Effects Provided to Patient/Siginificant Other,Patient/Significant Other Received Written Instruction s,Patient/Significant Other Verbalized Understanding of Discharge Instructions,Reviewed Discharge Instructions with Patient/Significant Other * Educ Topic #1 : Disease Specific * Barriers to Learning : No Barriers * Teaching Method : Discuss,Reading Materials * Evaluation Method : Verbal Patient Transfer Information from 04/26/2020 3:11 PM: * LOC : Alert Physician Follow-up Plan/Appointments from 04/26/2020 3:45 PM: * Patient stated Primary Care Provider : PCP, NONE (PCP) ([facility] 5102) - Medical Summary Purpose Family History No Family History Records Found Relationship Condition Age at Onset Recorded Date/T jocy Not Specified Cardiac disease Unknown Advance Directives No Advanced Directives Records Found Date Activated Date Inactivated Comments 09/08/2023 4:22 AM Date Activated Date Inactivated Comments 11/03/2023 11:01 PM 11/05/2023 1:59 PM Date Activated Date Inactivated Comments 11/03/2023 11:01 PM 11/05/2023 1:59 PM Advance Directive Response Recorded Date/ Time Do you have a Healthcare Power of Hall Supervisor? No June 02, 2024 11:25pm Advance Directive Response Recorded Date/ Time Do you have a Healthcare Power of Hall Supervisor? No July 02, 2024 12:57pm Do you have a Healthcare Power of Hall Supervisor? No June 03, 2024 3:02am Advance Directive Response Recorded Date/ Time Do you have a Healthcare Power of Hall Supervisor? No July 02, 2024 5:24pm Do you have a Healthcare Power of Hall Supervisor? No June 03, 2024 3:02am Advance Directive Response Recorded Date/ Time Do you have a Healthcare Power of Hall Supervisor? No July 02, 2024 5:24pm Do you have a Healthcare Power of Hall Supervisor? No June 03, 2024 3:02am Do you have a Healthcare Power of Hall Supervisor? No July 24, 2024 7:45am Advance Directive Response Recorded Date/ Time Do you have a Healthcare Power of Hall Supervisor? No July 02, 2024 5:24pm Do you have a Healthcare Power of Hall Supervisor? No June 03, 2024 3:02am Do you have a Healthcare Power of Hall Supervisor? No July 24, 2024 2:48pm Reason for Referral Specialty Diagnoses / Procedures Referred By Anne Marie t Referred To Contact Gastroenterology Diagnoses Incontinence of feces, unspecified fecal incontinence type Curtis Hernandez MD [address] [address] Tomasz Hodges MD [facility] [place] [address] Referral ID Status Reason Start Date Expiration Date V isits Requested Visits Authorized [id number] Authorized 10/08/2021 10/08/2022 1 1 Specialty Diagnoses / Procedures Referred By Contac t Referred To Contact Rehabilitation Diagnoses Ataxia Curtis Hernandez MD [address] [address] [facility] [place] [address] [address] [place] [address] Referral ID Status Reason Start Date Expiration Date V isits Requested Visits Authorized [id number] Authorized 12/15/2021 12/15/2022 1 1 Specialty Diagnoses / Procedures Referred By Contac t Referred To Contact Diagnoses Type 2 diabetes mellitus without complication, without long-term current use of insulin (HCC) Curtis Hernandez MD [address] [address] [facility] [address] [address] Referral ID Status Reason Start Date Expiration Date Visits Requested Visits Authorized [id number] Authorized Specialty Services Required/Pat ient's Best Interest 12/15/2021 12/15/2022 1 1 Specialty Diagnoses / Procedures Referred By Contac t Referred To Contact Physical Therapy Diagnoses Cerebrovascular accident (CVA), unspecified mechanism Josie Otero, FRONT DESK HOST-INSERTING PRESS OPERATOR, DNP [address] [place] [address] Referral ID Status Reason Start Date Expiration Date V isits Requested Visits Authorized [id number] New Request 09/11/2023 10/05/2024 1 1 Scheduling Instructions Enio Cleayr [facility] [place] (Orthopedic, Sports Rehab) [address], [address], [place] [address] Outpatient [facility] [place] (Burn, Neurological, Orthopedic, Pelvic Health, Sports Rehab) [address] [facility], [address], [place] [address] Outpatient Care [facility] (Orthopedic Rehab) [address] [facility], [address], [place] [address] Outpatient [facility] [place] (Orthopedic, Pelvic Health, Sports) [address] [facility], [address], [place] [address] Outpatient [facility] [place] - Pelvic Health [address] [facility], [address], [place] [address] Outpatient [facility] [place] (Orthopedic, Pelvic Health, Sports Rehab) [address], [address], [place] [address] Outpatient Care [facility] (Aquatic, Burn, Neurological, Orthopedic, Pelvic Health Rehab) [address] [facility] [address], [place] [address] Outpatient [facility] [place] (Burn, Neurological, Orthopedic, Pelvic Health, Sports Rehab) [address] [facility], [address] [address] Outpatient Rehabilitation [facility] (Neurological, Orthopedic Rehab) [address] [place] [address] [facility] (Aquatic, Burn, Neurological, Orthopedic, Pelvic Health Rehab) [address] [place] [address] Outpatient [facility] [place] (Burn, Neurological, Orthopedic Rehab) [address] [place] [address] Sports Medicine Rehabilitation [facility] (Orthopedic, Sports Rehab) [address] [facility], [address], [place] [address] Sports Medicine [facility] ([facility]thopedic, Sports Rehab) [address], [address], [place] [address] Sports Medicine Rehabilitation [facility] (Orthopedic, Sports Rehab) [address], [place] [address] Sports Medicine Rehabilitation [facility] (Aquatic, Orthopedic, Pelvic Health, Sports Rehab) [address], [place] [address] Sports Medicine Rehabilitation [facility] (Orthopedic, Sports Rehab) [address] [place] [address] [address] [facility] (Orthopedic, Sports Rehab) [address] [facility] [address] [facility], [address], [place] [address] Specialty Diagnoses / Procedures Referred By Anne Marie t Referred To Contact Neurology Diagnoses Cerebrovascular accident (CVA), unspecified mechanism Christopher Hernandez, FRONT DESK HOST-INSERTING PRESS OPERATOR [address] [place] [address] Referral ID Status Reason Start Date Expiration Date V isits Requested Visits Authorized [id number] New Request 09/11/2023 10/05/2024 1 1 Specialty Diagnoses / Procedures Referred By Contac t Referred To Contact Endocrinology, Diabetes & Metabolism Diagnoses Cerebrovascular accident (CVA), unspecified mechanism Josie Otero, FRONT DESK HOST-INSERTING PRESS OPERATOR, DNP [address] [place] [address] Referral ID Status Reason Start Date Expiration Date V isits Requested Visits Authorized [id number] New Request 09/11/2023 10/05/2024 1 1 Scheduling Instructions Call [phone] to schedule outpatient DM Classes with the Division of Endocrinology, Metabolism and Diabetes. Locations available: Outpatient Care [facility], Outpatient Care [place], Outpatient Care [place], Outpatient [facility] [place], Internal Medicine [place] Specialty Diagnoses / Procedures Referred By Contac t Referred To Contact [address] [place] [address] Referral ID Status Reason Start Date Expiration Date Visits Re quested Visits Authorized Specialty Diagnoses / Procedures Referred By Contac t Referred To Contact Procedures PLATELET MONITORING PER PROTOCOL Josie Barney MD [address] [place] [phone] Referral ID Status Reason Start Date Expiration Date V isits Requested Visits Authorized [id number] New Request 09/08/2023 10/02/2024 1 1 Specialty Diagnoses / Procedures Referred By Contac t Referred To Contact Procedures DVT/VTE RISK ASSESSMENT Josie Barney MD [address] [place] [phone] Referral ID Status Reason Start Date Expiration Date V isits Requested Visits Authorized [id number] New Request 09/08/2023 10/02/2024 1 1 Specialty Diagnoses / Procedures Referred By Contac t Referred To Contact Care Management Diagnoses Type 2 diabetes mellitus without complication, without long-term current use of insulin (HCC) Curtis Hernandez MD [facility] [place] [id number] Referral ID Status Reason Start Date Expiration Date V isits Requested Visits Authorized [id number] Authorized 10/06/2023 10/05/2024 1 1 Specialty Diagnoses / Procedures Referred By Contac t Referred To Contact Endocrinology Diagnoses Type 2 diabetes mellitus without complication, without long-term current use of insulin (HCC) Curtis Hernandez MD [address] [address] Referral ID Status Reason Start Date Expiration Date V isits Requested Visits Authorized [id number] Authorized 10/06/2023 10/05/2024 1 1 Specialty Diagnoses / Procedures Referred By Contac t Referred To Contact Podiatry Diagnoses Ulcer of right foot, unspecified ulcer stage (HCC) Curtis Hernandez MD [address] [address] Referral ID Status Reason Start Date Expiration Date V isits Requested Visits Authorized [id number] Authorized 11/10/2023 11/09/2024 1 1 Specialty Diagnoses / Procedures Referred By Contac t Referred To Contact Nutrition Diagnoses Type 2 diabetes mellitus without complication, without long-term current use of insulin ([facility]) Paco Sears, INSERTING PRESS OPERATOR [address] [place] [address] Referral ID Status Reason Start Date Expiration Date V isits Requested Visits Authorized [id number] Authorized 12/01/2023 11/30/2024 1 1 Chief Complaint and Reason for Visit Chief Complaint Admit Date PULMONARY EMBOLISM, PULMONARY INFARCT, E LEVATED June 03, 2024 1:50am Reason for Visit Admit Date Bilateral pulmonary embolism June 03, 2024 1:50am Dehydration June 03, 2024 1:5 0am Ear infection June 03, 2024 1:5 0am Elevated troponin June 03, 2024 1:5 0am Erythrocytosis June 03, 2024 1:5 0am Morbid obesity with BMI of 50.0-59.9, ad ult June 03, 2024 1:50am Pulmonary embolism with infarction June 03, 2024 1:50am Tachycardia June 03, 2024 1:5 0am Type 2 diabetes mellitus with hyperglyce mindy June 03, 2024 1:50am Hypertension June 03, 2024 1:5 0am Chief Complaint Admit Date BILATERAL PE'S, PULM INFARCTION, HYPERGL YCEMIA AND June 03, 2024 2:08am BILATERAL PE'S, PULM INFARCTION, HYPERGL YCEMIA AND June 04, 2024 8:47am CHF EXACERBATION July 02, 2024 4:06p m sob July 02, 2024 4:09p m Reason for Visit Admit Date Bilateral pulmonary embolism June 03, 2024 2:08am Morbid obesity with BMI of 50.0-59.9, ad ult June 03, 2024 2:08am Pulmonary embolism with infarction June 03, 2024 2:08am Type 2 diabetes mellitus with hyperglyce mindy June 03, 2024 2:08am Hypertension June 03, 2024 2:0 8am Dehydration June 03, 2024 2:0 8am Ear infection June 03, 2024 2:0 8am Elevated troponin June 03, 2024 2:0 8am Erythrocytosis June 03, 2024 2:0 8am Tachycardia June 03, 2024 2:0 8am (HFpEF) heart failure with preserved eje ction fraction July 02, 2024 4:06pm Chief Complaint Admit Date BILATERAL PE'S, PULM INFARCTION, HYPERGL YCEMIA AND June 03, 2024 2:08am BILATERAL PE'S, PULM INFARCTION, HYPERGL YCEMIA AND June 04, 2024 8:47am CHF EXACERBATION July 02, 2024 4:06p m sob July 02, 2024 4:09p m CHF EXACERBATION July 03, 2024 11:24 am CHF EXACERBATION July 04, 2024 10:38 am Reason for Visit Admit Date Bilateral pulmonary embolism June 03, 2024 2:08am Morbid obesity with BMI of 50.0-59.9, ad ult June 03, 2024 2:08am Pulmonary embolism with infarction June 03, 2024 2:08am Type 2 diabetes mellitus with hyperglyce [facility] June 03, 2024 2:08am Hypertension June 03, 2024 2:0 8am Dehydration June 03, 2024 2:0 8am Ear infection June 03, 2024 2:0 8am Elevated troponin June 03, 2024 2:0 8am Erythrocytosis June 03, 2024 2:0 8am Tachycardia June 03, 2024 2:0 8am (HFpEF) heart failure with preserved eje ction fraction July 02, 2024 4:06pm Acute heart failure with preserved eject ion fraction (HFpEF) July 02, 2024 4:06pm Hypoxia July 02, 2024 4:06p m Chief Complaint Admit Date BILATERAL PE'S, PULM INFARCTION, HYPERGL YCEMIA AND June 03, 2024 2:08am BILATERAL PE'S, PULM INFARCTION, HYPERGL YCEMIA AND June 04, 2024 8:47am CHF EXACERBATION July 02, 2024 4:06p m sob July 02, 2024 4:09p m CHF EXACERBATION July 03, 2024 11:24 am CHF EXACERBATION July 04, 2024 10:38 am CHF EXACERBATION July 05, 2024 11:52 am FREE INTRAABDOMINAL AIR July 24, 2024 11:29am N/VD July 24, 2024 12:1 4pm Reason for Visit Admit Date Bilateral pulmonary embolism June 03, 2024 2:08am Morbid obesity with BMI of 50.0-59.9, ad ult June 03, 2024 2:08am Pulmonary embolism with infarction June 03, 2024 2:08am Type 2 diabetes mellitus with hyperglyce mindy June 03, 2024 2:08am Hypertension June 03, 2024 2:0 8am Dehydration June 03, 2024 2:0 8am Ear infection June 03, 2024 2:0 8am Elevated troponin June 03, 2024 2:0 8am Erythrocytosis June 03, 2024 2:0 8am Tachycardia June 03, 2024 2:0 8am Acute heart failure with preserved eject ion fraction (HFpEF) July 02, 2024 4:06pm Hypoxia July 02, 2024 4:06p m (HFpEF) heart failure with preserved eje ction fraction July 02, 2024 4:06pm Free intraperitoneal air July 24, 2024 11:29am Small bowel obstruction July 24, 2024 11:29am Type 2 diabetes mellitus with hyperglyce [facility] July 24, 2024 11:29am Hypertension July 24, 2024 11:2 9am Chief Complaint Admit Date BILATERAL PE'S, PULM INFARCTION, HYPERGL YCEMIA AND June 03, 2024 2:08am BILATERAL PE'S, PULM INFARCTION, HYPERGL YCEMIA AND June 04, 2024 8:47am CHF EXACERBATION July 02, 2024 4:06p m sob July 02, 2024 4:09p m CHF EXACERBATION July 03, 2024 11:24 am CHF EXACERBATION July 04, 2024 10:38 am CHF EXACERBATION July 05, 2024 11:52 am FREE INTRAABDOMINAL AIR July 24, 2024 11:29am N/VD July 24, 2024 12:1 4pm FREE INTRAABDOMINAL AIR July 25, 2024 7:57am FREE INTRAABDOMINAL AIR July 26, 2024 8:29am FREE INTRAABDOMINAL AIR July 27, 2024 9:39am Chief Complaint Admit Date BILATERAL PE'S, PULM INFARCTION, HYPERGL YCEMIA AND June 03, 2024 2:08am BILATERAL PE'S, PULM INFARCTION, HYPERGL YCEMIA AND June 04, 2024 8:47am CHF EXACERBATION July 02, 2024 4:06p m sob July 02, 2024 4:09p m CHF EXACERBATION July 03, 2024 11:24 am CHF EXACERBATION July 04, 2024 10:38 am CHF EXACERBATION July 05, 2024 11:52 am FREE INTRAABDOMINAL AIR July 24, 2024 11:29am N/VD July 24, 2024 12:1 4pm FREE INTRAABDOMINAL AIR July 25, 2024 7:57am FREE INTRAABDOMINAL AIR July 26, 2024 8:29am FREE INTRAABDOMINAL AIR July 27, 2024 9:39am HOSPITAL F/U- DISCUSS UPPER AND LOWER Ju ly 2024 2:24pm Reason for Visit Admit Date Bilateral pulmonary embolism June 03, 2024 2:08am Morbid obesity with BMI of 50.0-59.9, ad ult June 03, 2024 2:08am Pulmonary embolism with infarction June 03, 2024 2:08am Type 2 diabetes mellitus with hyperglyce [facility] June 03, 2024 2:08am Hypertension June 03, 2024 2:0 8am Dehydration June 03, 2024 2:0 8am Ear infection June 03, 2024 2:0 8am Elevated troponin June 03, 2024 2:0 8am Erythrocytosis June 03, 2024 2:0 8am Tachycardia June 03, 2024 2:0 8am Acute heart failure with preserved eject ion fraction (HFpEF) July 02, 2024 4:06pm Hypoxia July 02, 2024 4:06p m (HFpEF) heart failure with preserved eje ction fraction July 02, 2024 4:06pm Free intraperitoneal air July 24, 2024 11:29am Small bowel obstruction July 24, 2024 11:29am Type 2 diabetes mellitus with hyperglyce [facility] July 24, 2024 11:29am Hypertension July 24, 2024 11:2 9am Free intraperitoneal air August 16, 2024 2:24pm Screen for colon cancer August 16, 2024 2:24pm Additional Source Comments Goals (unrecognized section and content) Goals may be documented in an alternate section (unrecognized sect ion and content) No Status Records FoundNo Status Records FoundNo Status Records FoundNo Status Records FoundNo Status Records FoundNo Status Records Found INFORMATION SOURCE (unrecogn ized section and content) DATE CREATED AUTHOR 03/27/2021 [facility] DATE CREATED AUTHOR AUTHOR'S ORGANIZ ATION 08/31/2021 [facility] DATE CREATED AUTHOR AUTHOR'S ORGANIZ ATION 10/27/2023 [facility] DATE CREATED AUTHOR AUTHOR'S ORGANIZ ATION 12/24/2023 [facility] DATE CREATED AUTHOR AUTHOR'S ORGANIZ ATION 08/12/2024 [facility] DATE CREATED AUTHOR AUTHOR'S ORGANIZ ATION 09/23/2024 [facility] <item> Privacy Markings (unrecogniz ed section and content) Section Author: Joleen Pinto PROHIBITION ON REDISCLOSURE OF CONFIDENTIAL INFORMATION This notice accompanies a disclosure of information concerning a client made to you with the consent of such client. Reason for Visit (unrecogniz ed section and content) Reason Comments Establish Care Issues with diarrhea Reason Comments Gap Closure (Health Maintenance) Foot Ex am Never doneOphthalmology Exam Never doneUrine Microalbumin Never done Annual Exam Reason Comments Gap Closure (Health Maintenance) Foot Ex am Never [id number] due on 01/07/2022 Reason Comments Hypertension Specialty Diagnoses / Procedures Referred By Contac t Referred To Contact Diagnoses Pneumoperitoneum abd free air Chencho Perry MD [address] [place] [address] [facility] [address] [place] [address] Referral ID Status Reason Start Date Expiration Date Visits Re quested Visits Authorized [id number] 1 1 Reason Comments Follow-up [facility] Reason Comments Follow-up ar Seizure Not sure if seizure or stroke, arms feels heavy Specialty Diagnoses / Procedures Referred By Anne Marie warner Referred To Contact Neurology Diagnoses Cerebrovascular accident (CVA), unspecified mechanism Christopher Hernandez, FRONT DESK HOST-INSERTING PRESS OPERATOR [address] [place] [address] Referral ID Status Reason Start Date Expiration Date V isits Requested Visits Authorized [id number] New Request 09/11/2023 10/05/2024 1 1 Reason Comments Gap Closure (Health Maintenance) Diabeti c Foot Exam Never doneUrine Microalbumin due on 12/15/2022iabetic Eye Exam due on 03/15/2023 Follow-up Y- Fu burn on top of right foot from potato slice in oil from stop top Reason Onset Date Comments Medication Refill 11/29/2023 Reason Comments Diabetes Mellitus Gap Closure (Health Maintenance) Diabeti c Foot Exam Never doneDiabetic Eye Exam due on 03/15/2023 Specialty Diagnoses / Procedures Referred By Anne Marie warner Referred To Contact Endocrinology Diagnoses Type 2 diabetes mellitus without complication, without long-term current use of insulin ([facility]) Curtis Hernandez MD [address] [place] [address] Paco Sears CNP [address] [place] [address] Referral ID Status Reason Start Date Expiration Date Visits Re quested Visits Authorized [id number] Closed 10/06/2023 10/05/2024 1 1 Reason Comments Med Change Request Reason Comments Wound Check Three week follow up right foot wound. States he is still using silvadene cream. No dressing today. Blood sugar average is 220. Reason Comments Seizures He has his daughter and grandson with him today. He states 1 seizure the night he left the hospital. He states the episode lasted on and off for a couple hours. He had his EEG recently. Reason Onset Date Comments Medication Refill 01/19/2024 Reason Comments Diabetes Mellitus A1C due on 4 Reason Comments Diabetes Mellitus A1C due on 5 Reason Comments Transition Of Care Discharged from [facility] on 06/03/2024 - A - Fib - 2 blood clots in lungs Reason Onset Date Comments Medication Refill 07/31/2024 Reason Comments Follow-up Recent hospital stay Reason Comments Seizures No seizures. Taking mediation as prescribed. Informed at previous visit about possibly stopping keppra. Reason Onset Date Comments Medication Refill 08/15/2024 Reason Onset Date Comments Medication Refill 09/06/2024 Care Teams (unrecognized sec tion and content) Team Status: Active Member Role Status Dates Dr. Curtis Hernandez MD Primary Care Provider Active Team Status: Inactive Member Role Status Dates Dr. Curtis Hernandez MD Primary Care Provider Active Start: June 03, 2024 End: June 04, 2024 John Schneider MD Emergency Provider Active Star t: June 03, 2024 End: June 04, 2024 Dr. Kaiden Zafar DO Admit Provider Active Start: June 03, 2024 End: June 04, 2024 Dr. Kaiden Zafar DO Other Provider Active Start: June 03, 2024 End: June 04, 2024 Dr. Kaiden Bullard MD Attending Provider Active Start: June 03, 2024 End: June 04, 2024 Team Status: Active Member Role Status Dates Dr. Curtis Hernandez MD Primary Care Provider Active Start: June 03, 2024 Dr. Des Mills MD Attending Provider Active S tart: June 03, 2024 Dr. Kaiden Zafar DO Referring Provider Active Start: June 03, 2024 Team Status: Active Member Role Status Dates Dr. Curtis Hernandez MD Primary Care Provider Active Start: June 03, 2024 Dr. Anna Collins MD Attending Provider Active Start: June 03, 2024 Team Status: Active Member Role Status Dates Dr. Curtis Hernandez MD Primary Care Provider Active Start: June 04, 2024 John Schneider MD Emergency Provider Active Star t: June 04, 2024 Dr. Kaiden Zafar DO Admit Provider Active Start: June 04, 2024 Dr. Kaiden Zafar , DO Other Provider Active Start: June 04, 2024 Dr. Kaiden Bullard MD Attending Provider Active Start: June 04, 2024 Dr. Kaiden Bullard MD Other Provider Active Star t: June 04, 2024 Team Status: Active Member Role Status Dates Dr. Curtis Hernandez MD Primary Care Provider Active Start: July 02, 2024 Dr. Derek Gray , DO Emergency Provider Activ e Start: July 02, 2024 Dr. Des Hamm , Admit Provider Active Star t: July 02, 2024 Dr. Des Hamm , Attending Provider Active Start: July 02, 2024 Team Status: Active Member Role Status Dates Dr. Curtis Hernandez MD Primary Care Provider Active Start: July 02, 2024 Dr. Derek Gray , DO Emergency Provider Activ e Start: July 02, 2024 Dr. Des Hamm , Attending Provider Active Start: July 02, 2024 Surgical Tech Relationship Specialty Start Date End Date Curtis Hernandez MD [address] [address] PCP - General Family Medicine 10/08/21 Surgical Tech Relationship Specialty Start Date End Date Curtis Hernandez MD [address] [address] PCP - General Family Medicine 10/08/21 Surgical Tech Relationship Specialty Start Date End Date Curtis Hernandez MD [address] [address] PCP - General Family Medicine 10/08/21 Surgical Tech Relationship Specialty Start Date End Date Curtis Hernandez MD [address] [address] PCP - General Family Medicine 10/08/21 Surgical Tech Relationship Specialty Start Date End Date Curtis Hernandez MD [address] [address] PCP - General Family Medicine 10/08/21 Surgical Tech Relationship Specialty Start Date End Date Curtis Hernandez MD [address] [address] PCP - General Family Medicine 09/08/23 Surgical Tech Relationship Specialty Start Date End Date Curtis Hernandez MD [address] [address] PCP - General Family Medicine 10/08/21 Surgical Tech Relationship Specialty Start Date End Date Curtis Hernandez MD [address] [place] [id number] PCP - General Family Medicine 09/08/23 Surgical Tech Relationship Specialty Start Date End Date Curtis Hernandez MD [address] [address] PCP - General Family Medicine 10/08/21 Surgical Tech Relationship Specialty Start Date End Date Curtis Hernandez MD [address] [place] [id number] PCP - General Family Medicine 10/08/21 Surgical Tech Relationship Specialty Start Date End Date Curtis Hernandez MD [address] [address] PCP - General Family Medicine 10/08/21 Surgical Tech Relationship Specialty Start Date End Date Curtis Hernandez MD [address] [address] PCP - General Family Medicine 10/08/21 Surgical Tech Relationship Specialty Start Date End Date Curtis Hernandez MD [address] [address] PCP - General Family Medicine 10/08/21 Surgical Tech Relationship Specialty Start Date End Date Curtis Hernandez MD [address] [address] PCP - General Family Medicine 10/08/21 Surgical Tech Relationship Specialty Start Date End Date Curtis Hernandez MD [address] [address] PCP - General Family Medicine 10/08/21 Surgical Tech Relationship Specialty Start Date End Date Curtis Hernandez MD [address] [address] PCP - General Family Medicine 10/08/21 Team Status: Active Member Role Status Dates Dr. Curtis Hernandez MD Primary Care Provider Active Start: June 03, 2024 John Schneider MD Emergency Provider Active Star t: June 03, 2024 Dr. Kaiden Zafar DO Admit Provider Active Start: June 03, 2024 Dr. Kaiden Zafar DO Attending Provider Active Start: June 03, 2024 Surgical Tech Relationship Specialty Start Date End Date Curtis Hernandez MD [address] [address] PCP - General Family Medicine 10/08/21 Jorge Javier, OD [address] [place] [phone] Optometry 03/15/24 Surgical Tech Relationship Specialty Start Date End Date Curtis Hernandez MD [address] [address] PCP - General Family Medicine 10/08/21 Jorge Javier, OD [address] [place] [address] Optometry 03/15/24 Surgical Tech Relationship Specialty Start Date End Date Curtis Hernandez MD [facility] [address] [address] PCP - General Family Medicine 10/08/21 Jorge Javier, OD [address] [place] [phone] Optometry 03/15/24 Team Status: Inactive Member Role Status Dates Dr. Curtis Hernandez MD Primary Care Provider Active Start: July 02, 2024 End: July 05, 2024 Dr. Derek Gray , DO Emergency Provider Activ e Start: July 02, 2024 End: July 05, 2024 Dr. Des Hamm , DO Admit Provider Active Star t: July 02, 2024 End: July 05, 2024 Dr. Des Hamm , DO Other Provider Active Star t: July 02, 2024 End: July 05, 2024 Dr. Lawrence Cary , DO Attending Provider Active Start: July 02, 2024 End: July 05, 2024 Team Status: Active Member Role Status Dates Dr. Curtis Hernandez MD Primary Care Provider Active Start: July 03, 2024 Dr. Derek Gray , DO Emergency Provider Activ e Start: July 03, 2024 Dr. Des Hamm , DO Admit Provider Active Star t: July 03, 2024 Dr. Des Hamm , DO Other Provider Active Star t: July 03, 2024 Dr. Lawrence Cary , DO Attending Provider Active Start: July 03, 2024 Dr. Lawrence Cary , DO Other Provider Active Start: July 03, 2024 Team Status: Active Member Role Status Dates Dr. Curtis Hernandez MD Primary Care Provider Active Start: July 04, 2024 Dr. Derek Gray , DO Emergency Provider Activ e Start: July 04, 2024 Dr. Des Hamm , DO Admit Provider Active Star t: July 04, 2024 Dr. Des Hamm , DO Other Provider Active Star t: July 04, 2024 Dr. Lawrence Cary , DO Attending Provider Active Start: July 04, 2024 Dr. Lawrence Cary , DO Other Provider Active Start: July 04, 2024 Team Status: Active Member Role Status Dates Dr. Curtis Hernandez MD Primary Care Provider Active Start: July 05, 2024 Dr. Derek Gray , DO Emergency Provider Activ e Start: July 05, 2024 Dr. Des Hamm , DO Admit Provider Active Star t: July 05, 2024 Dr. Des Hamm , DO Other Provider Active Star t: July 05, 2024 Dr. Lawrence Cary , DO Attending Provider Active Start: July 05, 2024 Dr. Lawrence Cary , DO Other Provider Active Start: July 05, 2024 Team Status: Active Member Role Status Dates Dr. Curtis Hernandez MD Primary Care Provider Active Start: July 24, 2024 Dr. Des Barillas , DO Emergency Provider Active Start: July 24, 2024 Dr. Maxwell Ricardo MD Admit Provider Active Start: July 24, 2024 Dr. Maxwell Ricardo MD Attending Provider Active Start: July 24, 2024 Dr. Maxwell Ricardo MD Referring Provider Active Start: July 24, 2024 Team Status: Active Member Role Status Dates Dr. Curtis Hernandez MD Primary Care Provider Active Start: July 24, 2024 Dr. Des Barillas DO Emergency Provider Active Start: July 24, 2024 Dr. Maxwell Ricardo MD Attending Provider Active Start: July 24, 2024 Team Status: Inactive Member Role Status Dates Dr. Curtis Hernandez MD Primary Care Provider Active Start: July 24, 2024 End: July 27, 2024 Dr. Des Barillas DO Emergency Provider Active Start: July 24, 2024 End: July 27, 2024 Dr. Maxwell Ricardo MD Admit Provider Active Start: July 24, 2024 End: July 27, 2024 Dr. Maxwell Ricardo MD Attending Provider Active Start: July 24, 2024 End: July 27, 2024 Dr. Maxwell Ricardo MD Referring Provider Active Start: July 24, 2024 End: July 27, 2024 Team Status: Active Member Role Status Dates Dr. Curtis Hernandez MD Primary Care Provider Active Start: July 25, 2024 Dr. Des Barillas DO Emergency Provider Active Start: July 25, 2024 Dr. Maxwell Ricardo MD Admit Provider Active Start: July 25, 2024 Dr. Maxwell Ricardo MD Attending Provider Active Start: July 25, 2024 Dr. Maxwell Ricardo MD Referring Provider Active Start: July 25, 2024 Dr. Maxwell Ricardo MD Other Provider Active Start: July 25, 2024 Team Status: Active Member Role Status Dates Dr. Curtis Hernandez MD Primary Care Provider Active Start: July 26, 2024 Dr. Des Barillas DO Emergency Provider Active Start: July 26, 2024 Dr. Maxwell Ricardo MD Admit Provider Active Start: July 26, 2024 Dr. Maxwell Ricardo MD Referring Provider Active Start: July 26, 2024 Dr. Maxwell Ricardo MD Other Provider Active Start: July 26, 2024 Dr. Jamaica James MD Attending Provider Active Start: July 26, 2024 Team Status: Active Member Role Status Dates Dr. Curtis Hernandez MD Primary Care Provider Active Start: July 27, 2024 Dr. Des Barillas DO Emergency Provider Active Start: July 27, 2024 Dr. Maxwell Ricardo MD Admit Provider Active Start: July 27, 2024 Dr. Maxwell Ricardo MD Referring Provider Active Start: July 27, 2024 Dr. Maxwell Ricardo MD Other Provider Active Start: July 27, 2024 Dr. Jamaica James MD Attending Provider Active Start: July 27, 2024 Surgical Tech Relationship Specialty Start Date End Date Curtis Hernandez MD [address] [address] PCP - General Family Medicine 10/08/21 Jorge Javier, OD [address] [place] [address] Optometry 03/15/24 Team Status: Active Member Role/Relationship Status Dates Dr. Curtis Hernandez MD Primary Care Provider Active Team Status: Inactive Member Role/Relationship Status Dates Dr. Curtis Hernandez MD Primary Care Provider Active Start: June 03, 2024 End: June 04, 2024 John Schneider MD Emergency Provider Active Star t: June 03, 2024 End: June 04, 2024 Dr. Kaiden Zafar DO Admit Provider Active Start: June 03, 2024 End: June 04, 2024 Dr. Kaiden Zafar DO Other Provider Active Start: June 03, 2024 End: June 04, 2024 Dr. Kaiden Bullard MD Attending Provider Active Start: June 03, 2024 End: June 04, 2024 Team Status: Active Member Role/Relationship Status Dates Dr. Curtis Hernandez MD Primary Care Provider Active Start: June 03, 2024 Dr. Des Mills MD Attending Provider Active S tart: June 03, 2024 Dr. Kaiden Zafar DO Referring Provider Active Start: June 03, 2024 Team Status: Active Member Role/Relationship Status Dates Dr. Curtis Hernandez MD Primary Care Provider Active Start: June 03, 2024 Dr. Anna Collins MD Attending Provider Active Start: June 03, 2024 Team Status: Active Member Role/Relationship Status Dates Dr. Curtis Hernandez MD Primary Care Provider Active Start: June 04, 2024 John Schneider MD Emergency Provider Active Star t: June 04, 2024 Dr. Kaiden Zafar , DO Admit Provider Active Start: June 04, 2024 Dr. Kaiden Zafar , DO Other Provider Active Start: June 04, 2024 Dr. Kaiden Bullard MD Attending Provider Active Start: June 04, 2024 Dr. Kaiden Bullard MD Other Provider Active Star t: June 04, 2024 Team Status: Inactive Member Role/Relationship Status Dates Dr. Curtis Hernandez MD Primary Care Provider Active Start: July 02, 2024 End: July 05, 2024 Dr. Derek Gray , DO Emergency Provider Activ e Start: July 02, 2024 End: July 05, 2024 Dr. Des Hamm , DO Admit Provider Active Star t: July 02, 2024 End: July 05, 2024 Dr. Des Hamm , DO Other Provider Active Star t: July 02, 2024 End: July 05, 2024 Dr. Lawrence Cary , DO Attending Provider Active Start: July 02, 2024 End: July 05, 2024 Team Status: Active Member Role/Relationship Status Dates Dr. Curtis Hernandez MD Primary Care Provider Active Start: July 02, 2024 Dr. Derek Gray , DO Emergency Provider Activ e Start: July 02, 2024 Dr. Des Hamm , DO Attending Provider Active Start: July 02, 2024 Team Status: Active Member Role/Relationship Status Dates Dr. Curtis Hernandez MD Primary Care Provider Active Start: July 03, 2024 Dr. Derek Gray , DO Emergency Provider Activ e Start: July 03, 2024 Dr. Des Hamm , DO Admit Provider Active Star t: July 03, 2024 Dr. Des Hamm , DO Other Provider Active Star t: July 03, 2024 Dr. Lawrence Cary , DO Attending Provider Active Start: July 03, 2024 Dr. Lawrence Cary , DO Other Provider Active Start: July 03, 2024 Team Status: Active Member Role/Relationship Status Dates Dr. Curtis Hernandez MD Primary Care Provider Active Start: July 04, 2024 Dr. Derek Gray , DO Emergency Provider Activ e Start: July 04, 2024 Dr. Des Hamm , DO Admit Provider Active Star t: July 04, 2024 Dr. Des Hamm , DO Other Provider Active Star t: July 04, 2024 Dr. Lawrence Cary , DO Attending Provider Active Start: July 04, 2024 Dr. Lawrence Cary , DO Other Provider Active Start: July 04, 2024 Team Status: Active Member Role/Relationship Status Dates Dr. Curtis Hernandez MD Primary Care Provider Active Start: July 05, 2024 Dr. Derek Gray , DO Emergency Provider Activ e Start: July 05, 2024 Dr. Des Hamm , DO Admit Provider Active Star t: July 05, 2024 Dr. Des Hamm , DO Other Provider Active Star t: July 05, 2024 Dr. Lawrence Cary , DO Attending Provider Active Start: July 05, 2024 Dr. Lawrence Cary , DO Other Provider Active Start: July 05, 2024 Team Status: Inactive Member Role/Relationship Status Dates Dr. Curtis Hernandez MD Primary Care Provider Active Start: July 24, 2024 End: July 27, 2024 Dr. Des Barillas , Emergency Provider Active Start: July 24, 2024 End: July 27, 2024 Dr. Maxwell Ricardo MD Admit Provider Active Start: July 24, 2024 End: July 27, 2024 Dr. Maxwell Ricardo MD Attending Provider Active Start: July 24, 2024 End: July 27, 2024 Dr. Maxwell Ricardo MD Referring Provider Active Start: July 24, 2024 End: July 27, 2024 Team Status: Active Member Role/Relationship Status Dates Dr. Curtis Hernandez MD Primary Care Provider Active Start: July 24, 2024 Dr. Des Barillas , Emergency Provider Active Start: July 24, 2024 Dr. Maxwell Ricardo MD Attending Provider Active Start: July 24, 2024 Team Status: Active Member Role/Relationship Status Dates Dr. Curtis Hernandez MD Primary Care Provider Active Start: July 25, 2024 Dr. Des Barillas DO Emergency Provider Active Start: July 25, 2024 Dr. Maxwell Ricardo MD Admit Provider Active Start: July 25, 2024 Dr. Maxwell Ricardo MD Attending Provider Active Start: July 25, 2024 Dr. Maxwell Ricardo MD Referring Provider Active Start: July 25, 2024 Dr. Maxwell Ricardo MD Other Provider Active Start: July 25, 2024 Team Status: Active Member Role/Relationship Status Dates Dr. Curtis Hernandez MD Primary Care Provider Active Start: July 26, 2024 Dr. Des Barillas DO Emergency Provider Active Start: July 26, 2024 Dr. Maxwell Ricardo MD Admit Provider Active Start: July 26, 2024 Dr. Maxwell Ricardo MD Referring Provider Active Start: July 26, 2024 Dr. Maxwell Ricardo MD Other Provider Active Start: July 26, 2024 Dr. [place] James MD Attending Provider Active Start: July 26, 2024 Team Status: Active Member Role/Relationship Status Dates Dr. Curtis Hernandez MD Primary Care Provider Active Start: July 27, 2024 Dr. Des Barlilas DO Emergency Provider Active Start: July 27, 2024 Dr. Maxwell Ricardo MD Admit Provider Active Start: July 27, 2024 Dr. Maxwell Ricardo MD Referring Provider Active Start: July 27, 2024 Dr. Maxwell Ricardo MD Other Provider Active Start: July 27, 2024 Dr. [place] James MD Attending Provider Active Start: July 27, 2024 Team Status: Inactive Member Role/Relationship Status Dates Dr. Curtis Hernandez MD Primary Care Provider Active Start: August 16, 2024 End: August 16, 2024 Dr. Curtis Hernandez MD Referring Provider Active Start: August 16, 2024 End: August 16, 2024 Dr. 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 09/03/24 Scheduled Active and Recently Administ ered Medications (unrecognized section and content) Medication Order 09/09/2023 09/10/2023 09/11/2023 aspirin chewable tablet 81 mg 81 mg, Oral, DAILY, First dose on 09/09/23 at 0900, Until Discontinued 07 (Given - Provider: Kenny Crowe RN) 0745 (Given - Provider: Kenny Crowe RN) 08 (Given - Provider: Brenna Billy, RN) Atorvastatin (LIPITOR) tablet 40 mg 40 mg, Oral, DAILY AT BEDTIME, First dose on Mon09/11/23 at 2100, Until Discontinued Enoxaparin Sodium (LOVENOX) injection 40 mg 40 mg, Subcutaneous, EVERY 12 HOURS, First dose on Mon09/08/23 at 0900, Until Discontinued, For SUBCUTANEOUS route ONLY: alternate injection sites between left and right abdominal wall, pinching location and avoiding area around navel. If unable to use abdominal sites, may use the front or side of thighs., Indications: DVT/PE prophylaxis 0742 (Given - Provider: Kenny Crowe RN)2053 (Given - Provider: Opal Houston RN) 0746 (Given - Provider: Kenny Crowe RN)2031 (Given - Provider: Kamla Crystal, AYUSH) 08 (Given - Provider: Brenna Billy, AYUSH) insulin glargine-yfgn (SEMGLEE) injection 18 Units(Linked Group 1) 18 Units, Subcutaneous, DAILY, First dose on 09/09/23 at 1100, Until Discontinued, Do not mix in syringe with other insulins. 1156 (Given - Provider: Kenny Crowe RN) 0746 (Given - Provider: Kenny Crowe RN) 08 (Given - Provider: Brenna BillyAYUSH) Insulin lispro (HUMALOG) injection(Linked Group 2) Subcutaneous, 4 TIMES DAILY WITH MEALS & AT BEDTIME, First dose on Mon09/09/23 at 0800, Until Discontinued, Insulin to carb ratio: Standard: 1 unit insulin = 10 grams carbs every meal and at bedtime Correction Factor: 151-200 = 1 unit; 201-250 = 2 units; 251-300 = 3 units; 301-350 = 4 units; 351-400 = 5 units; Kwikpen: Prime pen before each injection; refer to Pen Priming and Care Handout for further details. Warning! Confirm patient. Insulin pen is for labeled individual patient use ONLY. 1009 (Given - Provider: Kenny Crowe RN - Comment: late breakfast)1350 (Given - Provider: Kenny Crowe RN)1810 (Given - Provider: Kenny Crowe RN)2054 (Given - Provider: Opal Houston RN) 0949 (Given - Provider: Kenny Crowe RN)1315 (Given - Provider: Kenny Crowe RN)1858 (Given - Provider: Kenny Crowe RN)2032 (Not Given - Provider: Kamla Crystal RN - Reason: Order Parameters not met) 0943 (Given - Provider: Brenna Billy RN)1449 (Given - Provider: Brenna Billy RN)1700 (Canceled Entry - Provider: System Discharge - Comment: Automatically canceled at discontinue of medication order) Insulin regular (HUMULIN R;NOVOLIN R) injection (CANCELED)(Linked Group 3) Subcutaneous, EVERY 6 HOURS, First dose on Mon09/08/23 at 1300, Until Discontinued, Correction factor parameters most appropriate for NPO or tube feeding patients: Blood glucose under 60 = call H.O.; 151 - 200 = 2 units; 201 - 250 = 4 units; 251 - 300 = 6 units; 301 - 350 = 8 units; 351 - 400 = 10 units; Over 400 = call H.O. An initial vial will be sent from the pharmacy without prompting. Replacement vials require a MAR request when needed. Call pharmacy to coordinate expedited delivery if an emergent dose is needed for hyperglycemia treatment. 0015 (Given - Provider: Opal Houston RN)0643 (Given - Provider: Opal Houston RN) levETIRAcetam (KEPPRA XR) tablet XR 500 mg 500 mg, Oral, EVERY 12 HOURS, First dose on 09/10/23 at 2100, Until Discontinued, Extended release dosage form. Do not crush. 2032 (Given - Provider: Kamla Crystal RN) 08 (Given - Provider: Brenna Billy, AYUSH) levETIRAcetam (KEPPRA) 4,500 mg in Sodium chloride 0.9%, with overfill 155 mL (total volume) IVPB (COMPLETED) 4,500 mg, Intravenous, Administer over 15 Minutes, ONCE, 1 dose, On 09/10/23 at 1430 1427 ($$New Bag$$ - Provider: Kenny Crowe RN)1445 (Stopped - Provider: Kenny Crowe RN) Losartan (COZAAR) tablet 25 mg (CANCELED) 25 mg, Oral, DAILY, First dose on 09/09/23 at 1415, Until Discontinued 1414 (Given - Provider: Kenny Crowe RN) 0746 (Given - Provider: Kenny Crowe RN) Losartan (COZAAR) tablet 50 mg 50 mg, Oral, DAILY, First dose (after last modification) on 09/11/23 at 0900, Until Discontinued 08 (Given - Provider: Brenna Billy RN) Metoprolol (LOPRESSOR) tablet 25 mg (CANCELED) 25 mg, Oral, EVERY 12 HOURS, First dose on 09/09/23 at 0900, Until Discontinued 0742 (Given - Provider: Kenny Crowe RN)2053 (Given - Provider: Opal Houston RN) 0746 (Given - Provider: Kenny Crowe RN) nicotine (NICODERM CQ) 14 MG/24HR patch 1 patch(Linked Group 4) 1 patch, Transdermal, EVERY 24 HOURS, First dose on Mon09/08/23 at 1345, Until Discontinued, Apply patch to hairless skin site on upper body or arm. Rotate sites for each application. Do not cut or alter patch. Remove patch after duration of 16-24 hours. To dispose, fold adhesive ends together. 1156 (Patch Removed - Provider: Kenny Crowe RN)1157 (Patch Applied - Provider: Kenny Crowe RN) 1136 (Patch Removed - Provider: Kenny Crowe RN)1315 (Not Given - Provider: Kenny Crowe RN - Reason: Patient/family refused) 1344 (Not Given - Provider: Brenna Billy RN - Reason: Patient/family refused) NIFEdipine (PROCARDIA XL) tablet XL 30 mg 30 mg, Oral, DAILY, First dose on Mon09/10/23 at 1430, Until Discontinued, Slow release product. Do not chew or crush. 1432 (Given - Provider: Kenny Crowe RN) 0825 (Given - Provider: Brenna Billy RN) Polyethylene glycol (MIRALAX) packet 17 g 17 g, Oral, DAILY, First dose on Mon09/08/23 at 1330, Until Discontinued 0745 (Not Given - Provider: Kenny Crowe RN - Reason: Patient/family refused) 0751 (Not Given - Provider: Kenny Crowe RN - Reason: Patient/family refused) 0838 (Not Given - Provider: Brenna Billy RN - Reason: Patient/family refused) Senna (SENOKOT) tablet 8.6 mg 8.6 mg, Oral, DAILY, First dose on Mon09/08/23 at 1330, Until Discontinued 0745 (Not Given - Provider: Kenny Crowe RN - Reason: Patient/family refused) 0751 (Not Given - Provider: Kenny Crowe RN - Reason: Patient/family refused) 0838 (Not Given - Provider: Brenna Billy RN - Reason: Patient/family refused) VERIFY LINKED PATCH PLACEMENT(Linked Group 4) Other, EVERY 12 HOURS, First dose on Mon09/08/23 at 2100, Until Discontinued, Confirm continued adhesion of nicotine 14mg /24hr patch at documented site. 0744 (Patch Verify - Provider: Kenny Crowe RN)2109 (Patch Verify - Provider: Opal Houston RN) 075 (Patch Verify - Provider: Kenny Crowe RN)2015 (Canceled Entry - Provider: Kamla Crystal RN - Comment: pt refused nicotine patch) 0839 (Canceled Entry - Provider: Brenna Billy RN) Continuous Medication Order 09/09/2023 09/10/2023 09/11/2023 Lactated ringers IV solution (CANCELED) Intravenous, at 125 mL/hr, CONTINUOUS, Starting on Mon09/08/23 at 0430, Until 09/09/23 at 0810 0200 ($$New Bag$$ - Provider: Opal Houston RN)0659 (Rate/Dose Verify - Provider: Kenny Crowe, AYUSH)0810 (Stopped - Provider: Kenny Crowe, RN) PRN Medication Order 09/09/2023 09/10/2023 09/11/2023 Acetaminophen (TYLENOL) tablet 650 mg 650 mg, Oral, EVERY 4 HOURS NEEDED, Starting on 09/10/23 at 1524, Until Mon09/11/23 at 1759, Moderate Pain, Maximum dose of acetaminophen is 4000 mg from all sources in 24 hours. 1624 (Given - Provider: Kenny Crowe RN) Dextrose 50% injection 7.5-25 g(Linked Group 2) 7.5-25 g, Intravenous, ADMINISTER DIRECTED, Starting on 09/09/23 at 0652, Until Mon09/11/23 at 1759, Blood glucose <80 mg/dL, For patients who are not alert, are NPO, or are on IV insulin infusion administer as directed per Hypoglycemia in Non- Adults Clinical Practice Guideline. For Blood Glucose: 60-79 mg/dL administer 7.5 gm (15ml); 45-59 mg/dL administer 12.5 gm (25ml); less than 45mg/dL administer 25gm (50ml). ++ If additional dextrose 50% needed, contact pharmacy or obtain from crash cart ++ glucose (GLUTOSE) 40 % oral gel 1-2 Tube(Linked Group 2) 1-2 Tube, Oral, ADMINISTER DIRECTED, Starting on 09/09/23 at 0652, Until Mon09/11/23 at 1759, Blood glucose <80 mg/dL, For patients who are alert, able to tolerate PO intake and with intact cognitive status administer as directed per Hypoglycemia in Non- Adults Clinical Practice Guideline. For Blood Glucose: 60-79 mg/dL administer 1 tube; 45-59 mg/dl administer 1.5 tubes; less than 45 mg/dL administer 2 tubes. Each tube of 37.5g delivers 15g of carbohydrate. hydrALAZINE (APRESOLINE) injection 10 mg 10 mg, Intravenous, EVERY 6 HOURS NEEDED, Starting on 09/10/23 at 1346, Until Mon09/11/23 at 1759, SBP > 180 mmHg hydrALAZINE (APRESOLINE) injection 5 mg (CANCELED) 5 mg, Intravenous, EVERY 6 HOURS NEEDED, Starting on Mon09/08/23 at 0950, Until Mon09/10/23 at 1347, SBP > 180 mmHg 0005 (Given - Provider: Opal Houston, RN) 0057 (Given - Provider: Opal Houston RN)0844 (Given - Provider: Kenny Crowe RN) Insulin lispro (HUMALOG) injection(Linked Group 2) Subcutaneous, NEEDED, Starting on 09/09/23 at 0652, Until Mon09/11/23 at 1759, Other, As needed for snacks, Insulin to carb ratio: Standard: 1 unit insulin = 10 grams carbs Correction Factor: not to be used with this order. Kwikpen: Prime pen before each injection; refer to Pen Priming and Care Handout for further details. Warning! Confirm patient. Insulin pen is for labeled individual patient use ONLY. Labetalol (NORMODYNE) injection 10 mg 10 mg, Intravenous, EVERY 6 HOURS NEEDED, Starting on Mon09/10/23 at 1347, Until Mon09/11/23 at 1759, SBP > 180 mmHg with HR >60 bpm, Administration duration: up to 20 mg over 2 minutes. Telemetry required except for PRIZE COORDINATOR patients on [address] Floors 6 and 7. For vials: labetalol should be treated as a SINGLE USE VIAL. Discard remaining contents after one use. magnesium oxide (MAG-OX) tablet 400-800 mg(Linked Group 5) 400-800 mg, Oral, ADMINISTER DIRECTED, Starting on Mon09/09/23 at 0513, Until Mon09/11/23 at 1759, See admin instructions, Other, Surgery Non-ICU Electrolyte Replacement Protocol, EXCLUDE patients less than 50kg, Scr greater than or equal to 2, CrCl less than 30ml/min, ESRD, renal replacement therapy, or history of renal transplant. If patient has a diet, is receiving tube feeds or is receiving other medications via tube, enteral route is preferred unless magnesium level is less than or equal to 1.3 mg/dL. If patient has high volume output (diarrhea, ileostomy, colostomy, fistula, NG tube) greater than 1L in last 24h or has no enteral access, utilize IV replacement. If magnesium level is 1.7-1.9 mg/dL administer 400mg ; If magnesium level is 1.4-1.6 mg/dL administer 800 mg; If magnesium level less than or equal to 1.3 mg/dL use IV replacement. 47 (Given - Provider: Kamla Crystal RN) magnesium oxide (MAG-OX) tablet 400-800 mg(Linked Group 5) 400-800 mg, Per NG tube, ADMINISTER DIRECTED, Starting on 09/09/23 at 0513, Until Mon09/11/23 at 1759, See admin instructions, Other, Surgery Non-ICU Electrolyte Replacement Protocol, EXCLUDE patients less than 50kg, Scr greater than or equal to 2, CrCl less than 30ml/min, ESRD, renal replacement therapy, or history of renal transplant. If patient has a diet, is receiving tube feeds or is receiving other medications via tube, enteral route is preferred unless magnesium level is less than or equal to 1.3 mg/dL. If patient has high volume output (diarrhea, ileostomy, colostomy, fistula, NG tube) greater than 1L in last 24h or has no enteral access, utilize IV replacement. If magnesium level is 1.7-1.9 mg/dL administer 400mg; If magnesium level is 1.4-1.6 mg/dL administer 800 mg; If magnesium level less than or equal to 1.3 mg/dL use IV replacement. 47 (See Alternativ e - Provider: Kamla Crystal RN) Magnesium sulfate 1 g in dextrose 5% 100 mL premix IVPB(Linked Group 5) 1 g, Intravenous, Administer over 60 Minutes, ADMINISTER DIRECTED, Starting on 09/09/23 at 0513, Until Mon09/11/23 at 1759, Other, Surgery Non-ICU Electrolyte Replacement Protocol, EXCLUDE patients less than 50kg, Scr greater than or equal to 2, CrCl less than 30ml/min, ESRD, renal replacement therapy, or history of renal transplant. If patient has a diet, is receiving tube feeds or is receiving other medications via tube, enteral route is preferred unless magnesium level is less than or equal to 1.3 mg/dL. If patient has high volume output (diarrhea, ileostomy, colostomy, fistula, NG tube) greater than 1L in last 24h or has no enteral access, utilize IV replacement. If magnesium level is 1.4-1.9 mg/dL and unable to take enteral dose due to high volume output; administer 2g. 0547 (See Alternativ e - Provider: Kamla Crystal RN) Magnesium sulfate 4 g in sterile water 50 ml premix IVPB(Linked Group 5) 4 g, Intravenous, Administer over 4 Hours, ADMINISTER DIRECTED, Starting on 09/09/23 at 0513, Until Mon09/11/23 at 1759, Other, Surgery Non-ICU Electrolyte Replacement Protocol, EXCLUDE patients less than 50kg, Scr greater than or equal to 2, CrCl less than 30ml/min, ESRD, renal replacement therapy, or history of renal transplant. If patient has a diet, is receiving tube feeds or is receiving other medications via tube, enteral route is preferred unless magnesium level is less than or equal to 1.3 mg/dL. If patient has high volume output (diarrhea, ileostomy, colostomy, fistula, NG tube) greater than 1L in last 24h or has no enteral access, utilize IV replacement. If magnesium level less than or equal to 1.3 mg/dL administer 4g, Notify physician, and repeat magnesium level 8 hours after magnesium replacement dose administered. 0547 (See Alternativ e - Provider: Kamla Crystal RN) Ondansetron (ZOFRAN) tablet 4 mg(Linked Group 6) 4 mg, Oral, EVERY 6 HOURS NEEDED, Starting on Mon09/08/23 at 0421, Until Mon09/11/23 at 1759, Nausea / Vomiting, 1st Line Nausea / Vomiting Ondansetron 4mg/2ml (ZOFRAN) injection 4 mg(Linked Group 6) 4 mg, Intravenous, EVERY 6 HOURS NEEDED, Starting on Mon09/08/23 at 0421, Until Mon09/11/23 at 1759, Nausea / Vomiting, 1st Line Nausea / Vomiting, If patient is unable to tolerate PO. Phenol (CHLORASEPTIC) 1.4 % oral spray 1 spray 1 spray, Mouth/Throat, NEEDED, Starting on Mon09/08/23 at 0421, Until Mon09/11/23 at 1759, Sore Throat, Patient may self-administer. Potassium Bicarb-Citric Acid (Effer-K) 20 MEQ effervescent tablets for oral solution 20-80 mEq(Linked Group 7) 20-80 mEq, Per NG tube, ADMINISTER DIRECTED, Starting on 09/09/23 at 0513, Until Mon09/11/23 at 1759, Other, Surgery Non-ICU Electrolyte Replacement Protocol, -Do not swallow whole. Dissolve completely in 3-4 ounces of water or cold juice before drinking. If administering via J tube, dilute in sterile water, wait for tablet to stop fizzing, swirl the solution and draw into a syringe suitable for attaching to the tube. After administration, flush tube with 15-30 mL water. EXCLUDE patients less than 50kg, Scr greater than or equal to 2, CrCl less than 30ml/min, ESRD, renal replacement therapy, or history of renal transplant. If patient has a diet, is receiving tube feeds or other medications via tube, enteral route is preferred unless potassium level is less than or equal to 2.9 mmol/L. If patient has high volume output (diarrhea, ileostomy, colostomy, fistula, NG tube) greater than 1L in last 24 hours or has no enteral access, utilize IV replacement. If potassium level 3.8-3.9 mmol/L administer 20 mEq; If potassium level 3.6-3.7 mmol/L administer 40 mEq; If potassium level 3.4-3.5 mmol/L administer 60 mEq; If potassium level 3-3.3 mmol/L administer 80 mEq. If potassium level less than or equal to 2.9 mmol/L use IV replacement. 0547 (See Alternativ e - Provider: Kamla Crystal RN) Potassium chloride (K-DUR) tablet ER 20-80 mEq(Linked Group 7) 20-80 mEq, Oral, ADMINISTER DIRECTED, Starting on 09/09/23 at 0513, Until Mon09/11/23 at 1759, See admin instructions, Surgery Non-ICU Electrolyte Replacement Protocol, -Swallow tablets whole; do not crush, chew, or suck on tablet. Tablet may also be broken in half and each half swallowed separately.- EXCLUDE patients less than 50kg, Scr greater than or equal to 2, CrCl less than 30 mL/min, ESRD, renal replacement therapy, or history of renal transplant. If patient has a diet, is receiving tube feeds or other medications via tube, enteral route is preferred unless potassium level is less than or equal to 2.9 mmol/L. If patient has high volume output (diarrhea, ileostomy, colostomy, fistula, NG tube) greater than 1L in last 24 hours or has no enteral access, utilize IV replacement. If potassium level 3.8-3.9 mmol/L administer 20 mEq; If potassium level 3.6-3.7 mmol/L administer 40 mEq; If potassium level 3.4-3.5 mmol/L administer 60 mEq; If potassium level 3-3.3 mmol/L administer 80 mEq. If potassium level less than or equal to 2.9 mmol/L use IV replacement. 0547 (Given - Provider: Kamla Crystal RN) Potassium chloride 10 mEq in sterile water 100 ml premix IVPB(Linked Group 7) 10 mEq, Intravenous, Administer over 60 Minutes, ADMINISTER DIRECTED, Starting on Mon09/09/23 at 0513, Until Mon09/11/23 at 1759, Other, Surgery Non-ICU Electrolyte Replacement Protocol, EXCLUDE patients less than 50kg, Scr greater than or equal to 2, CrCl less than 30ml/min, ESRD, renal replacement therapy, or history of renal transplant. If patient has a diet, is receiving tube feeds or other medications via tube, enteral route is preferred unless potassium level is less than or equal to 2.9 mmol/L. If patient has high volume output (diarrhea, ileostomy, colostomy, fistula, NG tube) greater than 1L in last 24 hours or has no enteral access, utilize IV replacement. If potassium level 3.8-3.9 mmol/L administer 20 mEq; If potassium level 3.6-3.7 mmol/L administer 40 mEq; If potassium level 3.0-3.5 mmol/L administer 60 mEq; If potassium level less than or equal to 2.9 mmol/L: administer 80 mEq, Notify provider & repeat potassium level 8 hours after last potassium replacement dose administered. 0547 (See Alternativ e - Provider: Kamla Crystal RN) Prochlorperazine (COMPAZINE) injection 5 mg(Linked Group 8) 5 mg, Intravenous, EVERY 6 HOURS NEEDED, Starting on Mon09/08/23 at 0421, Until Mon09/11/23 at 1759, Refractory Nausea Vomiting, If unrelieved by Ondansetron. Administer IV if patient is unable to tolerate PO. Prochlorperazine (COMPAZINE) tablet 5 mg(Linked Group 8) 5 mg, Oral, EVERY 6 HOURS NEEDED, Starting on Mon09/08/23 at 0421, Until Mon09/11/23 at 1759, Refractory Nausea Vomiting, If unrelieved by Ondansetron. Sodium chloride 0.9% IV solution 250 mL Intravenous, at 20 mL/hr, NEEDED, Starting on Mon09/08/23 at 0421, Until Mon09/11/23 at 1759, Carrier Fluid - See Admin. Inst, 250mL 0.9NS to be used as carrier fluid for intermittent small volume or piggyback medication administration as needed. Infusion rate of the carrier fluid should be set at 20 mL/hr unless the rate as the intermittent medication is less than 20 mL/hr. For intermittent medications with a rate less than 20 mL/hr set the carrier fluid at that rate of the intermittent or piggy back medication. 1425 ($$New Bag$$ - Provider: Kenny Crowe RN)1427 (Paused - Provider: Kenny Crowe RN)1445 (Restarted - Provider: Kenny Crowe RN)1459 (Rate/Dose Verify - Provider: Kenny Crowe RN)1508 (Stopped - Provider: Kamla Crystal RN) sodium phosphate 15 mmol in Sodium chloride 0.9%, with overfill 115 mL (total volume) IVPB(Linked Group 9) 15 mmol, Intravenous, Administer over 2 Hours, ADMINISTER DIRECTED, Starting on Mon09/09/23 at 0513, Until Mon09/11/23 at 1759, Other, Surgery Non-ICU Electrolyte Replacement Protocol, EXCLUDE patients less than 50kg, Scr greater than or equal to 2, CrCl less than 30ml/min, ESRD, renal replacement therapy, or history of renal transplant. If patient has a diet, is receiving tube feeds or is receiving other medications via tube, enteral route is preferred unless phosphate level is less than or equal to 1.8 mg/dL. If patient has high volume output (diarrhea, ileostomy, colostomy, fistula, NG tube) greater than 1L in last 24 hours or has no enteral access, utilize IV replacement. If phosphate level is 1.9-2.6 mg/dL and unable to take enteral dose due to high volume output administer 15 mmol. sodium phosphate 30 mmol in Sodium chloride 0.9%, with overfill 285 mL (total volume) IVPB(Linked Group 9) 30 mmol, Intravenous, Administer over 4 Hours, ADMINISTER DIRECTED, Starting on 09/09/23 at 0513, Until 09/11/23 at 1759, Other, Surgery Non-ICU Electrolyte Replacement Protocol, EXCLUDE patients less than 50kg, Scr greater than or equal to 2, CrCl less than 30ml/min, ESRD, renal replacement therapy, or history of renal transplant. If patient has a diet, is receiving tube feeds or is receiving other medications via tube, enteral route is preferred unless phosphate level is less than or equal to 1.8 mg/dL. If patient has high volume output (diarrhea, ileostomy, colostomy, fistula, NG tube) greater than 1L in last 24 hours or has no enteral access, utilize IV replacement. If phosphate level less than or equal to 1.8 mg/dL administer 30mmol, Notify physician, and repeat phosphate level 8 hours after last phosphate replacement dose administered. Sodium-potassium phosphate (K-PHOS NEUTRAL) tablet 500-1,000 mg(Linked Group 9) 500-1,000 mg, Oral, ADMINISTER DIRECTED, Starting on 09/09/23 at 0513, Until 09/11/23 at 1759, Other, Surgery Non-ICU Electrolyte Replacement Protocol, EXCLUDE patients less than 50kg, Scr greater than or equal to 2, CrCl less than 30ml/min, ESRD, renal replacement therapy, or history of renal transplant. If patient has a diet, is receiving tube feeds or is receiving other medications via tube, enteral route is preferred unless phosphate level is less than or equal to 1.8 mg/dL. If patient has high volume output (diarrhea, ileostomy, colostomy, fistula, NG tube) greater than 1L in last 24 hours or has no enteral access, utilize IV replacement. If phosphate level is 2.1-2.6 mg/dL administer 500 mg; If phosphate level is 1.9-2 mg/dL administer 1000 mg; If phosphate level is less than or equal to 1.8 mg/dL utilize IV replacement. Sodium-potassium phosphate (K-PHOS NEUTRAL) tablet 500-1,000 mg(Linked Group 9) 500-1,000 mg, Per NG tube, ADMINISTER DIRECTED, Starting on 09/09/23 at 0513, Until 09/11/23 at 1759, Other, Surgery Non-ICU Electrolyte Replacement Protocol, EXCLUDE patients less than 50kg, Scr greater than or equal to 2, CrCl less than 30ml/min, ESRD, renal replacement therapy, or history of renal transplant. If patient has a diet, is receiving tube feeds or is receiving other medications via tube, enteral route is preferred unless phosphate level is less than or equal to 1.8 mg/dL. If patient has high volume output (diarrhea, ileostomy, colostomy, fistula, NG tube) greater than 1L in last 24 hours or has no enteral access, utilize IV replacement. If phosphate level is 2.1-2.6 mg/dL administer 500 mg; If phosphate level is 1.9-2 mg/dL administer 1000 mg; If phosphate level is less than or equal to 1.8 mg/dL utilize IV replacement. Linked Groups Order Group 1: insulin glargine-yfgn (SEMGLEE) injection 18 UnitsJump to med 18 Units, Subcutaneous, DAILY, First dose on 09/09/23 at 1100, Until Discontinued, Do not mix in syringe with other insulins. And NOTIFY PHYSICIAN, OTHER (CANCELED) Routine, CONTINUOUS, Starting on 09/09/23 at 0936, Until Specified, Who to Notify: Precision Crop Manager, Call Precision Crop Manager if a.m. Glucose is less than 80 and dose reduction not already ordered. And BLOOD GLUCOSE (POC DEVICE) (CANCELED) Routine, 4 TIMES DAILY BEFORE MEALS & AT BEDTIME, First occurrence on 09/09/23 at 1030, If any blood glucose is greater than 300mg/dl, then repeat BLOOD GLUCOSE (POC DEVICE) in 2 hours. If the initial blood glucose was greater than 300mg/dl and if second blood glucose is greater than 200mg/dl, then notify maid housekeeper. And BLOOD GLUCOSE (POC DEVICE) (CANCELED) Routine, DIRECTED, Starting on 09/09/23 at 0935, Until Specified, Symptoms of Hypoglycemia: sweating, shaking, fatigue, rapid pulse, slow thinking & dizziness. Notify physician w/results. Symptoms of Hyperglycemia: excessive thirst, blurred vision, excessive urination & tiredness. Notify physician w/results. If patient NPO, obtain Blood Glucose (POC) prior to administration of all insulin products. Group 2: Insulin lispro (HUMALOG) injectionJump to med Subcutaneous, 4 TIMES DAILY WITH MEALS & AT BEDTIME, First dose on 09/09/23 at 0800, Until Discontinued, Insulin to carb ratio: Standard: 1 unit insulin = 10 grams carbs every meal and at bedtime Correction Factor: 151-200 = 1 unit; 201-250 = 2 units; 251-300 = 3 units; 301-350 = 4 units; 351-400 = 5 units; Kwikpen: Prime pen before each injection; refer to Pen Priming and Care Handout for further details. Warning! Confirm patient. Insulin pen is for labeled individual patient use ONLY. And Insulin lispro (HUMALOG) injectionJump to med Subcutaneous, NEEDED, Starting on 09/09/23 at 0652, Until 09/11/23 at 1759, Other, As needed for snacks, Insulin to carb ratio: Standard: 1 unit insulin = 10 grams carbs Correction Factor: not to be used with this order. Kwikpen: Prime pen before each injection; refer to Pen Priming and Care Handout for further details. Warning! Confirm patient. Insulin pen is for labeled individual patient use ONLY. And BLOOD GLUCOSE (POC DEVICE) (CANCELED) Routine, 4 TIMES DAILY BEFORE MEALS & AT BEDTIME, First occurrence on 09/09/23 at 0745, If any Blood Glucose (POC) is greater than 300mg/dl, then repeat Blood Glucose (POC) in 2 hours. If the initial blood glucose was greater than 300mg/dl and if second blood glucose is greater than 200md/dl, then notify Precision Crop Manager. And BLOOD GLUCOSE (POC DEVICE) (CANCELED) Routine, DIRECTED, Starting on 09/09/23 at 0652, Until Specified, For all Blood Glucose LESS THAN 80 mg/dL, treat per Hypoglycemia in Non- Adults Clinical Practice Guideline (CPG) and recheck glucose 15 min after treatment. Repeat per CPG until glucose GREATER THAN 80 mg/dL. Once glucose IS GREATER THAN 80 mg/dL, recheck Blood Glucose every 1 hour x2, then resume as previously ordered. For Blood Glucose LESS THAN 80 mg/dL on admission OR LESS than 45 mg/dL at any time, obtain POC Blood Glucose every 4 hours for 6 occurrences AFTER treating per CPG. Obtain blood glucose for symptoms of hypoglycemia: sweating, shaking, fatigue, rapid pulse, slow thinking & dizziness. Notify physician w/results. Obtain blood glucose for symptoms of hyperglycemia: excessive thirst, blurred vision, excessive urination & tiredness. Notify physician w/results. If patient NPO, obtain POC Blood Glucose prior to administration of any insulin products. And COMMUNICATION ORDER FOR NURSING CARE: For Blood Glucose LESS THAN 80 mg/dl (CANCELED) Routine, CONTINUOUS, Starting on 09/09/23 at 0653, Until Specified, For Blood Glucose LESS THAN 80 mg/dl follow Hypoglycemia in Non- Adults Clinical Practice Guideline (CPG) And Dextrose 50% injection 7.5-25 gJump to med 7.5-25 g, Intravenous, ADMINISTER DIRECTED, Starting on 09/09/23 at 0652, Until 09/11/23 at 1759, Blood glucose <80 mg/dL, For patients who are not alert, are NPO, or are on IV insulin infusion administer as directed per Hypoglycemia in Non- Adults Clinical Practice Guideline. For Blood Glucose: 60-79 mg/dL administer 7.5 gm (15ml); 45-59 mg/dL administer 12.5 gm (25ml); less than 45mg/dL administer 25gm (50ml). ++ If additional dextrose 50% needed, contact pharmacy or obtain from [facility] cart ++ And glucose (GLUTOSE) 40 % oral gel 1-2 TubeJump to med 1-2 Tube, Oral, ADMINISTER DIRECTED, Starting on 09/09/23 at 0652, Until 09/11/23 at 1759, Blood glucose <80 mg/dL, For patients who are alert, able to tolerate PO intake and with intact cognitive status administer as directed per Hypoglycemia in Non- Adults Clinical Practice Guideline. For Blood Glucose: 60-79 mg/dL administer 1 tube; 45-59 mg/dl administer 1.5 tubes; less than 45 mg/dL administer 2 tubes. Each tube of 37.5g delivers 15g of carbohydrate. And NOTIFY PHYSICIAN, Blood Glucose LESS THAN 80 mg/dl (CANCELED) Routine, CONTINUOUS, Starting on 09/09/23 at 0653, Until Specified, Who to Notify: [employer], For all Blood Glucose LESS THAN 80 mg/dl, notify [employer] after treatment per Hypoglycemia in Non- Adults Clinical Practice Guideline And Carbohydrate counts with meals (CANCELED) Routine, CONTINUOUS, Starting on 09/09/23 at 0653, Until Specified, Carbohydrate counts are to be done after each patient meal and with snack. Group 3: Insulin regular (HUMULIN R;NOVOLIN R) injection (CANCELED)Jump to med Subcutaneous, EVERY 6 HOURS, First dose on Mon09/08/23 at 1300, Until Discontinued, Correction factor parameters most appropriate for NPO or tube feeding patients: Blood glucose under 60 = call H.O.; 151 - 200 = 2 units; 201 - 250 = 4 units; 251 - 300 = 6 units; 301 - 350 = 8 units; 351 - 400 = 10 units; Over 400 = call H.O. An initial vial will be sent from the pharmacy without prompting. Replacement vials require a MAR request when needed. Call pharmacy to coordinate expedited delivery if an emergent dose is needed for hyperglycemia treatment. And BLOOD GLUCOSE (POC DEVICE) (CANCELED) Routine, EVERY 6 HOURS, First occurrence on Mon09/08/23 at 1800, If any Blood Glucose (POC) is greater than 300mg/dl, treat per correction factor orders; and repeat Blood Glucose (POC) in 2 hours if second blood glucose is greater than 200mg/dl, then notify maid housekeeper. And BLOOD GLUCOSE (POC DEVICE) (CANCELED) Routine, PRN, Starting on Mon09/08/23 at 1246, Until Specified, For all Blood Glucose LESS THAN 80 mg/dL, treat per Hypoglycemia in Non- Adults Clinical Practice Guideline (CPG) and recheck glucose 15 min after treatment. Repeat per CPG until glucose GREATER THAN 80 mg/dL. Once glucose IS GREATER THAN 80 mg/dL, recheck Blood Glucose every 1 hour x2, then resume as previously ordered. For Blood Glucose LESS THAN 80 mg/dL on admission OR LESS than 45 mg/dL at any time, obtain POC Blood Glucose every 4 hours for 6 occurrences AFTER treating per CPG. Obtain blood glucose for symptoms of hypoglycemia: sweating, shaking, fatigue, rapid pulse, slow thinking & dizziness. Notify physician w/results. Obtain blood glucose for symptoms of hyperglycemia: excessive thirst, blurred vision, excessive urination & tiredness. Notify physician w/results. If patient NPO, obtain POC Blood Glucose prior to administration of any insulin products. And COMMUNICATION ORDER FOR NURSING CARE: For Blood Glucose LESS THAN 80 mg/dl (CANCELED) Routine, CONTINUOUS, Starting on Mon09/08/23 at 1246, Until Specified, For Blood Glucose LESS THAN 80 mg/dl follow Hypoglycemia in Non- Adults Clinical Practice Guideline (CPG) And Dextrose 50% injection 7.5-25 g (CANCELED) 7.5-25 g, Intravenous, ADMINISTER DIRECTED, Starting on Mon09/08/23 at 1246, Until 09/09/23 at 0652, Blood glucose <80 mg/dL, For patients who are not alert, are NPO, or are on IV insulin infusion administer as directed per Hypoglycemia in Non- Adults Clinical Practice Guideline. For Blood Glucose: 60-79 mg/dL administer 7.5 gm (15ml); 45-59 mg/dL administer 12.5 gm (25ml); less than 45mg/dL administer 25gm (50ml). ++ If additional dextrose 50% needed, contact pharmacy or obtain from [facility] cart ++ And glucose (GLUTOSE) 40 % oral gel 1-2 Tube (CANCELED) 1-2 Tube, Oral, ADMINISTER DIRECTED, Starting on Mon09/08/23 at 1246, Until 09/09/23 at 0652, Blood glucose <80 mg/dL, For patients who are alert, able to tolerate PO intake and with intact cognitive status administer as directed per Hypoglycemia in Non- Adults Clinical Practice Guideline. For Blood Glucose: 60-79 mg/dL administer 1 tube; 45-59 mg/dl administer 1.5 tubes; less than 45 mg/dL administer 2 tubes. Each tube of 37.5g delivers 15g of carbohydrate. And NOTIFY PHYSICIAN, Blood Glucose LESS THAN 80 mg/dl (CANCELED) Routine, CONTINUOUS, Starting on Mon09/08/23 at 1246, Until Specified, Who to Notify: [employer], For all Blood Glucose LESS THAN 80 mg/dl, notify [employer] Manager after treatment per Hypoglycemia in Non- Adults Clinical Practice Guideline Group 4: nicotine (NICODERM CQ) 14 MG/24HR patch 1 patchJump to med 1 patch, Transdermal, EVERY 24 HOURS, First dose on Mon09/08/23 at 1345, Until Discontinued, Apply patch to hairless skin site on upper body or arm. Rotate sites for each application. Do not cut or alter patch. Remove patch after duration of 16-24 hours. To dispose, fold adhesive ends together. And VERIFY LINKED PATCH PLACEMENTJump to med Other, EVERY 12 HOURS, First dose on Mon09/08/23 at 2100, Until Discontinued, Confirm continued adhesion of nicotine 14mg /24hr patch at documented site. Group 5: magnesium oxide (MAG-OX) tablet 400-800 mgJump to med 400-800 mg, Oral, ADMINISTER DIRECTED, Starting on 09/09/23 at 0513, Until Mon09/11/23 at 1759, See admin instructions, Other, Surgery Non-ICU Electrolyte Replacement Protocol, EXCLUDE patients less than 50kg, Scr greater than or equal to 2, CrCl less than 30ml/min, ESRD, renal replacement therapy, or history of renal transplant. If patient has a diet, is receiving tube feeds or is receiving other medications via tube, enteral route is preferred unless magnesium level is less than or equal to 1.3 mg/dL. If patient has high volume output (diarrhea, ileostomy, colostomy, fistula, NG tube) greater than 1L in last 24h or has no enteral access, utilize IV replacement. If magnesium level is 1.7-1.9 mg/dL administer 400mg ; If magnesium level is 1.4-1.6 mg/dL administer 800 mg; If magnesium level less than or equal to 1.3 mg/dL use IV replacement. Or magnesium oxide (MAG-OX) tablet 400-800 mgJump to med 400-800 mg, Per NG tube, ADMINISTER DIRECTED, Starting on 09/09/23 at 0513, Until Mon09/11/23 at 1759, See admin instructions, Other, Surgery Non-ICU Electrolyte Replacement Protocol, EXCLUDE patients less than 50kg, Scr greater than or equal to 2, CrCl less than 30ml/min, ESRD, renal replacement therapy, or history of renal transplant. If patient has a diet, is receiving tube feeds or is receiving other medications via tube, enteral route is preferred unless magnesium level is less than or equal to 1.3 mg/dL. If patient has high volume output (diarrhea, ileostomy, colostomy, fistula, NG tube) greater than 1L in last 24h or has no enteral access, utilize IV replacement. If magnesium level is 1.7-1.9 mg/dL administer 400mg; If magnesium level is 1.4-1.6 mg/dL administer 800 mg; If magnesium level less than or equal to 1.3 mg/dL use IV replacement. Or Magnesium sulfate 1 g in dextrose 5% 100 mL premix IVPBJump to med 1 g, Intravenous, Administer over 60 Minutes, ADMINISTER DIRECTED, Starting on 09/09/23 at 0513, Until Mon09/11/23 at 1759, Other, Surgery Non-ICU Electrolyte Replacement Protocol, EXCLUDE patients less than 50kg, Scr greater than or equal to 2, CrCl less than 30ml/min, ESRD, renal replacement therapy, or history of renal transplant. If patient has a diet, is receiving tube feeds or is receiving other medications via tube, enteral route is preferred unless magnesium level is less than or equal to 1.3 mg/dL. If patient has high volume output (diarrhea, ileostomy, colostomy, fistula, NG tube) greater than 1L in last 24h or has no enteral access, utilize IV replacement. If magnesium level is 1.4-1.9 mg/dL and unable to take enteral dose due to high volume output; administer 2g. Or Magnesium sulfate 4 g in sterile water 50 ml premix IVPBJump to med 4 g, Intravenous, Administer over 4 Hours, ADMINISTER DIRECTED, Starting on 09/09/23 at 0513, Until Mon09/11/23 at 1759, Other, Surgery Non-ICU Electrolyte Replacement Protocol, EXCLUDE patients less than 50kg, Scr greater than or equal to 2, CrCl less than 30ml/min, ESRD, renal replacement therapy, or history of renal transplant. If patient has a diet, is receiving tube feeds or is receiving other medications via tube, enteral route is preferred unless magnesium level is less than or equal to 1.3 mg/dL. If patient has high volume output (diarrhea, ileostomy, colostomy, fistula, NG tube) greater than 1L in last 24h or has no enteral access, utilize IV replacement. If magnesium level less than or equal to 1.3 mg/dL administer 4g, Notify physician, and repeat magnesium level 8 hours after magnesium replacement dose administered. Group 6: Ondansetron (ZOFRAN) tablet 4 mgJump to med 4 mg, Oral, EVERY 6 HOURS NEEDED, Starting on Mon09/08/23 at 0421, Until Mon09/11/23 at 1759, Nausea / Vomiting, 1st Line Nausea / Vomiting Or Ondansetron 4mg/2ml (ZOFRAN) injection 4 mgJump to med 4 mg, Intravenous, EVERY 6 HOURS NEEDED, Starting on 09/08/23 at 0421, Until Mon09/11/23 at 1759, Nausea / Vomiting, 1st Line Nausea / Vomiting, If patient is unable to tolerate PO. Group 7: Potassium chloride (K-DUR) tablet ER 20-80 mEqJump to med 20-80 mEq, Oral, ADMINISTER DIRECTED, Starting on 09/09/23 at 0513, Until Mon09/11/23 at 1759, See admin instructions, Surgery Non-ICU Electrolyte Replacement Protocol, -Swallow tablets whole; do not crush, chew, or suck on tablet. Tablet may also be broken in half and each half swallowed separately.- EXCLUDE patients less than 50kg, Scr greater than or equal to 2, CrCl less than 30 mL/min, ESRD, renal replacement therapy, or history of renal transplant. If patient has a diet, is receiving tube feeds or other medications via tube, enteral route is preferred unless potassium level is less than or equal to 2.9 mmol/L. If patient has high volume output (diarrhea, ileostomy, colostomy, fistula, NG tube) greater than 1L in last 24 hours or has no enteral access, utilize IV replacement. If potassium level 3.8- 3.9 mmol/L administer 20 mEq; If potassium level 3.6-3.7 mmol/L administer 40 mEq; If potassium level 3.4-3.5 mmol/L administer 60 mEq; If potassium level 3-3.3 mmol/L administer 80 mEq. If potassium level less than or equal to 2.9 mmol/L use IV replacement. Or Potassium Bicarb-Citric Acid (Effer-K) 20 MEQ effervescent tablets for oral solution 20-80 mEqJump to med 20-80 mEq, Per NG tube, ADMINISTER DIRECTED, Starting on 09/09/23 at 0513, Until Mon09/11/23 at 1759, Other, Surgery Non-ICU Electrolyte Replacement Protocol, -Do not swallow whole. Dissolve completely in 3-4 ounces of water or cold juice before drinking. If administering via J tube, dilute in sterile water, wait for tablet to stop fizzing, swirl the solution and draw into a syringe suitable for attaching to the tube. After administration, flush tube with 15-30 mL water. EXCLUDE patients less than 50kg, Scr greater than or equal to 2, CrCl less than 30ml/min, ESRD, renal replacement therapy, or history of renal transplant. If patient has a diet, is receiving tube feeds or other medications via tube, enteral route is preferred unless potassium level is less than or equal to 2.9 mmol/L. If patient has high volume output (diarrhea, ileostomy, colostomy, fistula, NG tube) greater than 1L in last 24 hours or has no enteral access, utilize IV replacement. If potassium level 3.8- 3.9 mmol/L administer 20 mEq; If potassium level 3.6-3.7 mmol/L administer 40 mEq; If potassium level 3.4-3.5 mmol/L administer 60 mEq; If potassium level 3-3.3 mmol/L administer 80 mEq. If potassium level less than or equal to 2.9 mmol/L use IV replacement. Or Potassium chloride 10 mEq in sterile water 100 ml premix IVPBJump to med 10 mEq, Intravenous, Administer over 60 Minutes, ADMINISTER DIRECTED, Starting on Mon09/09/23 at 0513, Until Mon09/11/23 at 1759, Other, Surgery Non-ICU Electrolyte Replacement Protocol, EXCLUDE patients less than 50kg, Scr greater than or equal to 2, CrCl less than 30ml/min, ESRD, renal replacement therapy, or history of renal transplant. If patient has a diet, is receiving tube feeds or other medications via tube, enteral route is preferred unless potassium level is less than or equal to 2.9 mmol/L. If patient has high volume output (diarrhea, ileostomy, colostomy, fistula, NG tube) greater than 1L in last 24 hours or has no enteral access, utilize IV replacement. If potassium level 3.8-3.9 mmol/L administer 20 mEq; If potassium level 3.6-3.7 mmol/L administer 40 mEq; If potassium level 3.0-3.5 mmol/L administer 60 mEq; If potassium level less than or equal to 2.9 mmol/L: administer 80 mEq, Notify provider & repeat potassium level 8 hours after last potassium replacement dose administered. Group 8: Prochlorperazine (COMPAZINE) tablet 5 mgJump to med 5 mg, Oral, EVERY 6 HOURS NEEDED, Starting on Mon09/08/23 at 0421, Until Mon09/11/23 at 1759, Refractory Nausea Vomiting, If unrelieved by Ondansetron. Or Prochlorperazine (COMPAZINE) injection 5 mgJump to med 5 mg, Intravenous, EVERY 6 HOURS NEEDED, Starting on Mon09/08/23 at 0421, Until Mon09/11/23 at 1759, Refractory Nausea Vomiting, If unrelieved by Ondansetron. Administer IV if patient is unable to tolerate PO. Group 9: Sodium-potassium phosphate (K-PHOS NEUTRAL) tablet 500-1,000 mgJump to med 500-1,000 mg, Oral, ADMINISTER DIRECTED, Starting on 09/09/23 at 0513, Until Mon09/11/23 at 1759, Other, Surgery Non-ICU Electrolyte Replacement Protocol, EXCLUDE patients less than 50kg, Scr greater than or equal to 2, CrCl less than 30ml/min, ESRD, renal replacement therapy, or history of renal transplant. If patient has a diet, is receiving tube feeds or is receiving other medications via tube, enteral route is preferred unless phosphate level is less than or equal to 1.8 mg/dL. If patient has high volume output (diarrhea, ileostomy, colostomy, fistula, NG tube) greater than 1L in last 24 hours or has no enteral access, utilize IV replacement. If phosphate level is 2.1-2.6 mg/dL administer 500 mg; If phosphate level is 1.9-2 mg/dL administer 1000 mg; If phosphate level is less than or equal to 1.8 mg/dL utilize IV replacement. Or Sodium-potassium phosphate (K-PHOS NEUTRAL) tablet 500-1,000 mgJump to med 500-1,000 mg, Per NG tube, ADMINISTER DIRECTED, Starting on 09/09/23 at 0513, Until Mon09/11/23 at 1759, Other, Surgery Non-ICU Electrolyte Replacement Protocol, EXCLUDE patients less than 50kg, Scr greater than or equal to 2, CrCl less than 30ml/min, ESRD, renal replacement therapy, or history of renal transplant. If patient has a diet, is receiving tube feeds or is receiving other medications via tube, enteral route is preferred unless phosphate level is less than or equal to 1.8 mg/dL. If patient has high volume output (diarrhea, ileostomy, colostomy, fistula, NG tube) greater than 1L in last 24 hours or has no enteral access, utilize IV replacement. If phosphate level is 2.1-2.6 mg/dL administer 500 mg; If phosphate level is 1.9-2 mg/dL administer 1000 mg; If phosphate level is less than or equal to 1.8 mg/dL utilize IV replacement. Or sodium phosphate 15 mmol in Sodium chloride 0.9%, with overfill 115 mL (total volume) IVPBJump to med 15 mmol, Intravenous, Administer over 2 Hours, ADMINISTER DIRECTED, Starting on 09/09/23 at 0513, Until 09/11/23 at 1759, Other, Surgery Non-ICU Electrolyte Replacement Protocol, EXCLUDE patients less than 50kg, Scr greater than or equal to 2, CrCl less than 30ml/min, ESRD, renal replacement therapy, or history of renal transplant. If patient has a diet, is receiving tube feeds or is receiving other medications via tube, enteral route is preferred unless phosphate level is less than or equal to 1.8 mg/dL. If patient has high volume output (diarrhea, ileostomy, colostomy, fistula, NG tube) greater than 1L in last 24 hours or has no enteral access, utilize IV replacement. If phosphate level is 1.9-2.6 mg/dL and unable to take enteral dose due to high volume output administer 15 mmol. Or sodium phosphate 30 mmol in Sodium chloride 0.9%, with overfill 285 mL (total volume) IVPBJump to med 30 mmol, Intravenous, Administer over 4 Hours, ADMINISTER DIRECTED, Starting on 09/09/23 at 0513, Until 09/11/23 at 1759, Other, Surgery Non-ICU Electrolyte Replacement Protocol, EXCLUDE patients less than 50kg, Scr greater than or equal to 2, CrCl less than 30ml/min, ESRD, renal replacement therapy, or history of renal transplant. If patient has a diet, is receiving tube feeds or is receiving other medications via tube, enteral route is preferred unless phosphate level is less than or equal to 1.8 mg/dL. If patient has high volume output (diarrhea, ileostomy, colostomy, fistula, NG tube) greater than 1L in last 24 hours or has no enteral access, utilize IV replacement. If phosphate level less than or equal to 1.8 mg/dL administer 30mmol, Notify physician, and repeat phosphate level 8 hours after last phosphate replacement dose administered. FOR RECORDS PERTAINING TO PATIENTS WHO ARE OR HAVE BEEN ENROLLED IN A CHEMICAL DEPENDENCY/SUBSTANCEABUSE PROGRAM, SOME INFORMATION MAY BE OMITTED. This clinical summary was aggregated from multiple sources. Caution should be exercised in using it in the provision of clinical care. This summary normalizes information from multiple sources, and as a consequence, information in this document may materially change the coding, format and clinical context of patient data. In addition, data may be omitted in some cases. CLINICAL DECISIONS SHOULD BE BASED ON THE PRIMARY CLINICAL RECORDS. [facility] [employer] [facility]. provides no warranty or guarantee of the accuracy or completeness of information in this document.
[2024-09-24] MEDS: Lactated Ringers 1,000 ML 15 ML IV (07:11)
--- NOTE | 2024-09-24 07:26 | PRE.ANES_ITS ---
ASA Classification* ASA Classification ASA Classification: 3 Assessment & Plan Anesthesia* Anesthesia Assessment Anesthesia Assessment: Discussed sedation and/or anesthesia options, risks, benefits, and alternatives with patient/parents/legal guardian/POA. Questions invited. The patient/parents/legal guardian/POA seems to understand and agrees to proceed with anesthesia plan. Reviewed the physical assessment, medical history, allergy history and patient home medications list prior to surgery/procedure/anesthetic and documented any changes. Performed airway and anesthesia risk assessments. Anesthesia Type Anesthesia Type: MAC History Source History Obtained from:: Patient and Chart Anesthesia Focused Assessment* Temperature: 97.0 F Pulse Rate: 66 Blood Pressure: 155/79 Respiratory Rate: 20 Pulse Ox: 97 Oxygen Delivery Method: Room Air Airway Assessment Mouth opens: >3 cm Mallampati Score: II Teeth Condition: Intact Neck Range of motion (ROM): Full ROM Labs Anesthesia Preop lab: CBC WBC 7.0 K/mm3 (4.4-11.0) 07/26/24 08:54 07/26/24 RBC 5.48 M/mm3 (4.6-6.2) 07/26/24 08:54 07/26/24 Hgb 14.3 g/dL (13.0-16.5) 07/26/24 08:54 07/26/24 Hct 43.9 % (40-54) 07/26/24 08:54 07/26/24 Plt Count 149 K/mm3 (150-450) L 07/26/24 08:54 07/26/24 CHEMISTRY Potassium 3.4 mmol/L (3.3-5.1) 07/26/24 08:54 07/26/24 Sodium 140 mmol/L (133-145) 07/26/24 08:54 07/26/24 Magnesium 2.1 mg/dL (1.5-2.2) 07/26/24 08:54 07/26/24 Phosphorus 5.0 mg/dL (2.7-4.5) H 07/04/24 05:55 07/04/24 BUN 7 mg/dL (4-19) 07/26/24 08:54 07/26/24 Creatinine 0.54 mg/dL (0.70-1.20) L 07/26/24 08:54 Glucose 135 mg/dL (70-99) H 07/26/24 08:54 07/26/24 POC Glucose 179 mg/dL (74-106) H 07/27/24 06:20 07/27/24 TSH 2.300 uIU/mL (0.300-4.200) 06/03/24 01:28 05/08 09/30 COAG PT 16.1 SECONDS (11.7-14.9) H 07/02/24 13:14 06/07 08/30 Pre-Assessment Diagnosis/Proposed Procedure Planned Operative Procedure(s): EGD,COLONOSCOPY Anesthesia History Anesthesia History - material loader: Anesthesia History - material loader Hx Hospitalization Yes: 07/2024 CHF, AFIB; 09/23/24 09:25 PULMONARY EMBOLISM; AIR POCKET IN ABD Any Problems With Anesthesia No 09/23/24 09:25 Cholinesterase deficiency No 09/23/24 09:25 You/Your Family Experience No 09/23/24 09:25 fever (hyperthermia) with Relationship Recent Exposure to Contagious No 09/24/24 06:59 Disease Does patient have nerve No 09/23/24 09:25 stimulator Patient instructed to have device shut off --Does patient have Pacemaker No 09/24/24 07:02 or ICD? When Was Last Pacemaker Check QUESTION #4 FULL TEXT: You/Your Family Experience fever (hyperthermia) with Anesthesia Last Oral Intake Last Oral intake: Last Oral Intake NPO since 00:00 09/24/24 07:02 Meds taken in AM with sips of water? Meds patient instructed to take am of surgery PONV PONV - material loader: PONV - material loader Female No 09/23/24 09:25 HX of Motion Sickness No 09/23/24 09:25 HX of N/V After Surgery No 09/23/24 09:25 Non-Smoker Yes 09/23/24 09:25 Duration of Surgery greater No 09/23/24 09:25 than 60 minutes Number of Risk Factors 1 09/23/24 09:25 PONV Score Low Risk 09/23/24 09:25 Height & Weight Height & Weight: Anesthesia: Height & Weight Height 5 ft 9 in 09/24/24 07:02 Weight: 155.2 kg 09/24/24 07:02 Body Mass Index (BMI) 50.5 09/24/24 07:02 Respiratory Assessment Respiratory Assessment - material loader: Respiratory Tract Infection Hx - material loader Hx Respiratory Tract Infection No 09/23/24 09:25 STOP Sleep Apnea STOP Sleep Apnea - material loader: STOP Sleep Apnea - material loader Hx Hypertension Yes 09/23/24 09:25 Hx Sleep Apnea Yes 09/23/24 09:25 CPAP No 09/23/24 09:25 BIPAP No 09/23/24 09:25 Do you snore loudly (louder than talking or can be heard Do you often feel tired/ fatigued/ sleepy during daytime? Has anyone observed you stop breathing during sleep? STOP Results Positive 09/23/24 09:25 QUESTION #5 FULL TEXT : Do you snore loudly (louder than talking or can be heard through closed doors)? Tobacco Use History Tobacco Use History - material loader: Tobacco Use History - material loader Tobacco Use Smoking Status Never smoker 09/23/24 09:25 Hx Tobacco Use Yes: chew 09/23/24 09:25 Years Smoking Packs Smoked per Day Smoking Cessation Date was within the last 15 years Hx Smoking Cessation Date Hx Smoking Cessation Counseling Hematologic Medial History Hematologic Hx - material loader: Hematologic Medical Hx - documentation liaison Hx of Blood Transfusion No 09/23/24 09:25 Hx of Transfusion in last 3 No 09/23/24 09:25 Months Date of Last Transfusion (if within last 3 months) Ever experience any problems No 09/23/24 09:25 with transfusion(s)? Specify any problems Hx of Preganancy in last 3 N/A 09/23/24 09:25 Months Nurse Filling Out Transfusion MGRIFFITH 09/23/24 09:25 & Questions: Date: 09/23/24 09/23/24 09:25 Time: 09:28 09/23/24 09:25 Patient unable to answer at this time (ie. confused, unrespo /Reproduction History /Reproductive History - material loader: /Reproductive Hx- material loader Hx Now No 09/23/24 09:25 Gestational Age (in weeks): EDC: Hx Hx Para Hx Section SAB No 09/23/24 09:25 Active Medications Active Medications: Current Medications Generic Name Dose Route Start Last Admin Trade Name Freq PRN Reason Stop Dose Admin Lactated Ringer's 1,000 mls @ 15 mls/hr 09/24/24 06:45 09/24/24 07:11 IV 15 mls/hr .Q48H CHIQUITA Administration PFSH Medical History Wears glasses Anxiety Uses wheelchair Arthritis Gout History of pulmonary embolism Injury of head and neck Gastric reflux Chews tobacco History of edema History of echocardiogram Cardiology follow-up encounter History of CHF (congestive heart failure) History of atrial fibrillation Cervical vertebral fusion Seizure Migraine Hypothyroidism Hyperlipidemia GERD (gastroesophageal reflux disease) Essential hypertension Depression COPD (chronic obstructive pulmonary disease) (HFpEF) heart failure with preserved ejection fraction Sleep apnea Seizures Stroke/cerebrovascular accident Hypertension High cholesterol Diabetes Home Medications ?Medication ?Instructions ?Recorded ?Last Taken ?Type aspirin 81 mg chewable tablet 1 tab PO DAILY heart hea lth 06/03/24 09/23/24 History insulin lispro 100 unit/mL 10 unit subcut TID diabetes #15 mL 06/04/24 09/22/24 Rx subcutaneous pen furosemide 40 mg tablet 40 mg PO DAILY 30 days #30 t abs 07/05/24 09/23/24 Rx alcohol swabs (Alcohol Prep Pads) 1 pad topical 4X/DAY 07/24/24 Unknown History blood-glucose meter (Futura Acorpuch #1 ea 07/24/24 Unknown H istory Verio Flex Meter) diltiazem HCl 120 mg 120 mg PO Q12H 07/24/2409/06 History capsule,extended release 24 hr glucagon 1 mg solution for 1 mg IM X1 PRN hypoglycemia 07/24/24 Unknown History injection (Glucagon Emergency Kit) insulin glargine 100 unit/mL (3 30 unit subcut DAILY d iabetes 07/24/24 09/23/24 History mL) subcutaneous pen (Lantus Solostar U-100 Insulin) lancets 30 gauge (OneTouch Delica #100 ea 07/24/24 Unk nown History Plus Lancet) nifedipine 30 mg tablet,extended 30 mg PO DAILY 09/23/24 History release sitagliptin phosphate 50 mg tablet 50 mg PO DAILY 07/0709/23/24 History (Januvia) omeprazole 40 mg capsule,delayed 40 mg PO DAILY #30 ca ps 07/27/24 09/23/24 Rx release apixaban 5 mg tablet 5 mg PO BID #60 tabs 5 09/21/24 Rx atorvastatin 40 mg tablet 40 mg PO QDAY 08/16/2409/23 History losartan 50 mg tablet 50 mg PO QDAY 08/16/2409/23 History Allergy/AdvReac Type Severity Reaction Status Date / Time No Known Allergies Allergy Verified 09/24/24 06:58 Family History Other Heart disease Surgical History H/O arthroscopy of knee Hx of arthroscopic knee surgery Hx of neck surgery Social History household members: spouse and family housing: house Smoking Status: Never smoker Smokeless tobacco user: snuff Review of Systems (Anesthesia) ROS Narrative System reviewed and no additional complaints, except as documented.
--- NOTE | 2024-09-24 07:30 | EGD_PTH ---
PATIENT: MAXWELL SANDHU LOC: EN U#:[id number] AGE/SX: 54/M ROOM: RE09/24/[address]: Dr. Maxwell Ricardo MD : 1970 BED: DIS: 09/24/2024 SPEC #: [id number] RECD: 09/24/24 09:55 STATUS: QASIM REAntelmo #: [id number] CAITY: 09/24/24 07:[address]: Maxwell Ricardo DEPT: SURGICAL PATHOLOGY RECD BY: Jovi Reed ENTERED: 09/24/24 13:25 SP TYPE: EGD BIOPSY OTHR DR: Dr. Curtis Park MD Tissues: A - Gastric mucous membrane Procedures: Immunohistochemical Stains Surgery Specimen Level IV HEADER OPERATION: Colonoscopy, EGD PRE-OP DIAGNOSIS: Free intraperitoneal air, screen for colon cancer TISSUE SUBMITTED: A- Antrum biopsy MICROSCOPIC DIAGNOSIS A. Antrum, biopsy: - Oxyntic mucosa with mild chronic inflammation. - IHC negative for H. pylori organisms. MICROSCOPIC DESCRIPTION Slides are reviewed. All matched controls reacted appropriately. These tests were developed and their performance characteristics determined by [facility]. They may not have been cleared or approved by the U.S. Food and Drug Administration. The FDA has determined that such clearance or approval is not necessary. The above immunohistochemical markers are reviewed by the Pathologist. GROSS DESCRIPTION A. Received in fixative is one container labeled with the patient's name and designated Antrum biopsy. The specimen consists of two irregular fragments of light ramirez soft tissue that measure 0.3 and 0.4 cm. The specimen is totally submitted in one cassette. NE 09/24/2024 CPT:71984,97408
--- NOTE | 2024-09-24 08:04 | OP.EGD_ITS ---
Patient Name: Austin Abdi Procedure Date: 09/24/2024 7:31 AM Date of : 1970 Age: 54 Procedure: Upper GI endoscopy Indications: Heartburn, Suspected gastro-esophageal reflux disease Providers: Austin Ricardo MD Referring MD: Curtis Park Md Medicines: Propofol per Anesthesia Patient Profile: This is a 54 year old male. Refer to note in patient chart for documentation of history and physical. Complications: No immediate complications. Estimated blood loss: Minimal. Procedure: Pre-Anesthesia Assessment: - Prior to the procedure, a History and Physical was performed, and patient medications and allergies were reviewed. The patient's tolerance of previous anesthesia was also reviewed. The risks and benefits of the procedure and the sedation options and risks were discussed with the patient. All questions were answered, and informed consent was obtained. Prior Anticoagulants: The patient has taken no anticoagulant or antiplatelet agents. After reviewing the risks and benefits, the patient was deemed in satisfactory condition to undergo the procedure. After obtaining informed consent, the endoscope was passed under direct vision. Throughout the procedure, the patient's blood pressure, pulse, and oxygen saturations were monitored continuously. The Endoscope was introduced through the mouth, and advanced to the fourth part of duodenum. The upper GI endoscopy was accomplished without difficulty. The patient tolerated the procedure well. Scope In: 7:45:29 AM Scope Out: 7:48:55 AM Total Procedure Duration Time 0 hours 3 minutes 26 seconds Findings: The esophagus was normal. The stomach was normal. The examined duodenum was normal. Patchy moderately erythematous mucosa with stigmata of recent bleeding was found in the stomach. Biopsies were taken with a cold forceps for histology. Impression: - Normal esophagus. - Normal stomach. - Normal examined duodenum. - Erythematous mucosa in the stomach. Biopsied. Recommendation: - Discharge patient to home. - Resume previous diet. - Continue present medications. - Await pathology results. Procedure Code(s): --- Professional --- 60870, Esophagogastroduodenoscopy, flexible, transoral; with biopsy, single or multiple Diagnosis Code(s): --- Professional --- K31.89, Other diseases of stomach and duodenum R12, Heartburn CPT copyright 2021 [employer]. All rights reserved. The codes documented in this report are preliminary and upon regional clinical director review may be revised to meet current compliance requirements. Austin Ricardo MD 09/24/2024 8:04:28 AM This report has been signed electronically. Number of Addenda: 0 Note Initiated On: 09/24/2024 7:31 AM
--- NOTE | 2024-09-24 08:04 | OP.PROVAT_ITS ---
09/24/2024 Curtis Park Md Re : Upper GI endoscopy procedure for Austin Parraeed Dear Dr. Park This procedure was performed on Tuesday, September 24, 2024. My impressions and recommendations are as follows: Impressions : - Normal esophagus. - Normal stomach. - Normal examined duodenum. - Erythematous mucosa in the stomach. Biopsied. Recommendations : - Discharge patient to home. - Resume previous diet. - Continue present medications. - Await pathology results. My findings are described in the full procedure note, which is enclosed. If I can be of further assistance, please feel free to contact me at Doctor phone number(s): , Work: . Sincerely, Austin Ricardo MD 09/24/2024 8:04:28 AM This report has been signed electronically.
--- NOTE | 2024-09-24 08:06 | OP.PROVAT_ITS ---
09/24/2024 Curtis Park Md Re : Colonoscopy procedure for Austin Abdi Dear Dr. Park This procedure was performed on Tuesday, September 24, 2024. My impressions and recommendations are as follows: Impressions : - The entire examined colon is normal on direct and retroflexion views. - No specimens collected. Recommendations : - Discharge patient to home. - Resume previous diet. - Continue present medications. - Repeat colonoscopy in 10 years for screening purposes. My findings are described in the full procedure note, which is enclosed. If I can be of further assistance, please feel free to contact me at Doctor phone number(s): , Work: . Sincerely, Austin Ricardo MD 09/24/2024 8:05:36 AM This report has been signed electronically.
--- NOTE | 2024-09-24 08:06 | OP.COLON_ITS ---
Patient Name: Austin Abdi Procedure Date: 09/24/2024 7:50 AM Date of : 1970 Age: 54 Procedure: Colonoscopy Indications: Screening for colorectal malignant neoplasm Providers: Austin Ricardo MD Referring MD: Curtis Park Md Medicines: Propofol per Anesthesia Patient Profile: This is a 54 year old male. Refer to note in patient chart for documentation of history and physical. Last Colonoscopy: none. The patient's first colonoscopy is today. Complications: No immediate complications. Procedure: Pre-Anesthesia Assessment: - Prior to the procedure, a History and Physical was performed, and patient medications and allergies were reviewed. The patient's tolerance of previous anesthesia was also reviewed. The risks and benefits of the procedure and the sedation options and risks were discussed with the patient. All questions were answered, and informed consent was obtained. Prior Anticoagulants: The patient has taken no anticoagulant or antiplatelet agents. After reviewing the risks and benefits, the patient was deemed in satisfactory condition to undergo the procedure. - Prior to the procedure, a History and Physical was performed, and patient medications and allergies were reviewed. The patient's tolerance of previous anesthesia was also reviewed. The risks and benefits of the procedure and the sedation options and risks were discussed with the patient. All questions were answered, and informed consent was obtained. Prior Anticoagulants: The patient has taken no anticoagulant or antiplatelet agents. After reviewing the risks and benefits, the patient was deemed in satisfactory condition to undergo the procedure. After I obtained informed consent, the scope was passed under direct vision. Throughout the procedure, the patient's blood pressure, pulse, and oxygen saturations were monitored continuously. The colonoscope was introduced through the anus and advanced to the cecum, identified by appendiceal orifice and ileocecal valve. The colonoscopy was performed without difficulty. The patient tolerated the procedure well. The quality of the bowel preparation was good. The ileocecal valve, appendiceal orifice, and rectum were photographed. Scope In: 7:52:05 AM Scope Withdrawal Time 0 hours 6 minutes 14 seconds Scope Out: 8:01:21 AM Total Procedure Duration Time 0 hours 9 minutes 16 seconds Findings: The entire examined colon appeared normal on direct and retroflexion views. Impression: - The entire examined colon is normal on direct and retroflexion views. - No specimens collected. Recommendation: - Discharge patient to home. - Resume previous diet. - Continue present medications. - Repeat colonoscopy in 10 years for screening purposes. Procedure Code(s): --- Professional --- 80922, Colonoscopy, flexible; diagnostic, including collection of specimen(s) by brushing or washing, when performed (separate procedure) Diagnosis Code(s): --- Professional --- Z12.11, Encounter for screening for malignant neoplasm of colon CPT copyright 2021 [employer]. All rights reserved. The codes documented in this report are preliminary and upon hat finisher review may be revised to meet current compliance requirements. Austin Ricardo MD 09/24/2024 8:05:36 AM This report has been signed electronically. Number of Addenda: 0 Note Initiated On: 09/24/2024 7:50 AM
--- NOTE | 2024-09-24 08:10 | PCM.POST.ANE ---
Anesthesia: Postop Eval I Current Vital Signs Temperature: 97.8 F Pulse Rate: 56 Blood Pressure: 116/70 Respiratory Rate: 16 Pulse Ox: 96 Oxygen Delivery Method: Room Air Assessment Airway patent: Yes Spontaneous unlabored respirations: Yes Mental status: Asleep nausea: No Vomiting: No Anesthesia Complication: No Fluid Hydration Crystalloid volume administer (ml): 600 Total IV fluid infused: 600 Progress Note Anesthesia document: Postop Eval 1 completed: Yes
== END 2024-09-24 09:01 | disposition home or self-care (01) ==
LOC: EN 06:34 → AC 06:36
PROVIDERS: Visit Provider Surgery
PROC: 0DJD8ZZ Inspection of Lower Intestinal Tract, Via Natural or Artificial Opening Endoscopic (ICD-10-PCS; CPT 45378; principal; 2024-09-24 07:25)
DX: Z12.11 Encounter for screening for malignant neoplasm of colon (principal); I11.0 Hypertensive heart disease with heart failure; I50.30 Unspecified diastolic (congestive) heart failure; J44.9 Chronic obstructive pulmonary disease, unspecified; E11.9 Type 2 diabetes mellitus without complications; Z79.4 Long term (current) use of insulin; K21.9 Gastro-esophageal reflux disease without esophagitis; Z79.84 Long term (current) use of oral hypoglycemic drugs; E78.00 Pure hypercholesterolemia, unspecified; Z79.899 Other long term (current) drug therapy; K31.89 Other diseases of stomach and duodenum; Z79.82 Long term (current) use of aspirin; Z86.73 Personal history of transient ischemic attack (TIA), and cerebral infarction without residual deficits; Z79.01 Long term (current) use of anticoagulants; K66.8 Other specified disorders of peritoneum
CPT/HCPCS: 45378; 43239; 82962; 88305; 88342; J2405

== ENCOUNTER → 2024-12-02 | Outpatient (CLI) | payer MEDICAID, SELFPAY ==
--- NOTE | 2024-12-02 12:05 | STRESSREP_ITS ---
Stress Test Report
--- NOTE | 2024-12-02 12:05 | STRESSREP ---
Stress Test Report Date: 12/02/2024 Procedure: Pharmacologic stress nuclear imaging study Indications: Abnormal ECG Consent: Per the patient Procedure: The patient underwent pharmacologic (Regadenoson 0.4mg ) evaluation with a peak heart rate of 79 beats per minute (47%predicted maximal heart rate) and a peak blood pressure of 160/100 mmHg. The baseline ECG demonstrated sinus rhythm. The peak pharmacologic ECG did not show any diagnostic ischemic changes. There were no cardiac dysrhythmias pretest, during pharmacologic infusion, or recovery. There was no complaint of chest discomfort during pharmacologic infusion or recovery. The patient was injected with 14.8 millicuries of technetium 99m Cardiolite and subsequently rest SPECT Cardiolite nuclear imaging was obtained in the horizontal long, vertical long, and short axis views. The patient underwent pharmacologic (Regadenoson) evaluation. The patient was injected with 44.7 millicuries of technetium 99m Cardiolite and subsequently stress SPECT Cardiolite nuclear imaging was obtained in the horizontal long, vertical long, and short axis views. A gated Cardiolite study at peak stress was obtained. The examination was stopped secondary to completion of protocol. Rest and stress SPECT Cardiolite nuclear imaging status post realignment, normalization, and attenuation correction demonstrate no fixed or reversible perfusion defects. There is end systolic thickening and brightening. The gated Cardiolite study demonstrates myocardial thickening and inward wall motion. The reported LVEF is 58%. Impression: 1. Pharmacologic (Regadenoson) evaluation 2. Peak pharmacologic ECG with no ischemic changes. 3. There were no cardiac dysrhythmias pretest, during pharmacologic infusion, or recovery. 5. Rest and stress SPECT Cardiolite nuclear imaging demonstrate relative uniform tracer uptake and myocardial perfusion appearing within normal limits. 6. The gated Cardiolite study reports an LVEF of 58%. This note was generated with MideoMeation software. It may contain incorrect words, spelling, and punctuation that were not noted in checking the note before signing.
== END | disposition home or self-care (01) ==
LOC: CVS 06:35
PROVIDERS: Referring Provider Internal Medicine Cardiovascular Disease; Visit Provider Internal Medicine Cardiovascular Disease
DX: I48.0 Paroxysmal atrial fibrillation (principal); I10 Essential (primary) hypertension; R06.02 Shortness of breath; R94.31 Abnormal electrocardiogram [ECG] [EKG]
CPT/HCPCS: 78452; 93017; A9500; A4216; J2785